=== PATIENT | female | born 1950 | race Caucasian/White ===

== ENCOUNTER 2022-09-06 08:03 | Outpatient (OUT) | payer MEDICARE, BC, SELFPAY | END 2022-09-06 08:04 | disposition home or self-care (01) | LOC: VC 08:05 | PROVIDERS: PCP Radiology Diagnostic Radiology; Visit Provider Radiology Diagnostic Radiology | DX: I83.813 Varicose veins of bilateral lower extremities with pain (principal) ==

== ENCOUNTER 2022-09-19 13:52 | Outpatient (OUT) | payer MEDICARE, BC, SELFPAY ==
--- NOTE | 2022-09-19 | VEIN_ITS ---
Patient: KEELEY CADE Exam Date: 09/19/2022 : 1950 Gender:F Ordering : DR DI LIU M.D. Admission #: [id number] Family : Order #: [id number] CLICK HERE TO VIEW EXAM RADIOLOGY REPORT PROCEDURE: VC EXT VENOUS REFLUX GEN LMTD COMPARISON: None. INDICATIONS: Pain due to varicose veins of bilateral legs i83.813 TECHNIQUE: Duplex imaging of the lower extremity to assess the deep and superficial venous system for the presence of deep or superficial venous incompetence and to document the location and severity of disease. The study includes evaluation of the great saphenous vein (GSV), anterior accessory saphenous vein (AASV) and small saphenous vein (SSV). Patient scanned in reverse Trendelenburg and standing. 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 Compressibility: Partial thrombus mid SSV. Flow: Mild deep venous reflux. Preforator:Dist medial lower leg 6.2 mm with 1.3s reflux. Mid medial thigh 6.3 mm with 3.5s reflux. Tech Note: Previous vein stripping of right GSV. Large varicose vein off of track production engineer dist medial thigh measures 11.7 mm with 3.9s reflux. Varicose vein proximal medial lower leg measures 6.7 mm with 3.9s reflux. Mid medial lower leg varicose vein measures 6.5 mm with 3.7s reflux. Mid posterior calf varicose vein off of SSV measures 5.4 mm with 2.2s reflux. LEFT LOWER EXTREMITY: Saphenofemoral Junction Reflux: Yes 10.6 mm 1.3 sec GSV: Diam (mm) Reflux/Time (sec) Proximal Thigh 8.6 Yes 3.6 Mid Thigh N/A Distal Thigh N/A Prox Calf N/A Mid Calf N/A Saphenopopliteal Junction Relux: 2.7 mm Yes 2.2 SSV: Proximal Calf 3.0 Yes 0.2 Mid Calf 2.5 Yes 1.4 AASV: Proximal Thigh 7.9 Yes 1.7 Mid Thigh 4.6 Yes 0.9 Distal Thigh Thrombi: No acute or chronic thrombus. Compressibility: Normal. Flow: Moderate deep venous reflux. Youth Associate:Dist medial lower leg 4.0 mm with 2.4s reflux. Tech Note: Previously treated GSV. Patent distal calf GSV measures 3.1 mm with 1.0s reflux. Incompetent varicose vein medial knee measures 3.8 mm with 2.5s reflux. Mid medial lower leg varicose vein measures 4.1 mm with 2.5s reflux. Posterior mid thigh varicose vein measures 3.1 mm with 0.5s reflux. CONCLUSION: 1. Abnormally dilated and incompetent right small saphenous vein, anterior accessory saphenous vein, right thigh track production engineer vein, and multiple incompetent branch saphenous varicosities. 2. Abnormally dilated and incompetent left anterior accessory saphenous vein and a few branch saphenous varicosities. Dictated by: Celso Sargent M.D. on 09/19/2022 at 15:07 Approved by: Celso Sargent M.D. on 09/19/2022 at 16:02
--- NOTE | 2022-09-19 | VEIN_ITS ---
Patient: KEELEY CADE Exam Date: 09/19/2022 : 1950 Gender:F Ordering : DR DI LIU M.D. Admission #: [id number] Family : Order #: [id number] CLICK HERE TO VIEW EXAM RADIOLOGY REPORT PROCEDURE: FACILITY [facility] VEIN CENTER - OFFICE VISIT INITIAL COMPARISON: None. PROGRESS NOTES: [age] year old female who presents with a 50 year history of dilated bulging veins, discolored veins, leg swelling and cramping. The patient's right leg symptoms are worse than the left. There has been a progression of symptoms over past 10 years. This increases with prolonged leg dependency. The patient describes an improvement with rest, elevation, exercise, and support stockings. The patient denies any signs and symptoms to suggest arterial ischemia. The patient describes a family history for for varicose veins. The patient has drinking and smoking history of : Occasional alcohol consumption; no tobacco use. Patient has a past medical history significant for hypertension, prior treatment of vein disease. The patient denies a history of deep venous thrombus or pulmonary embolus. See separate history and physical for medication list. Remote history of prior stripping of right great saphenous vein and treatment/occlusion of left great saphenous vein at another institution. Current use of compression stockings. After review of nurse notes, history and physical exam I discussed at length the pathophysiology of venous hypertension and possible treatments, therapies and strategies available. We discussed at length the importance of elevating the lower extremities above the level of the heart, increased physical activity and compression stocking use. Ultrasound venous reflux study performed today was discussed at length with the patient. The report demonstrates abnormally dilated and incompetent right small saphenous vein, bilateral anterior accessory saphenous veins, right thigh paradi operator vein with large branching varicosities, and multiple incompetent branch saphenous varicosities bilaterally. PHYSICAL EXAM: The right leg demonstrates numerous large, bulging varicosities, multiple scattered spider veins, no ulceration, mild edema, no skin discoloration. The left leg demonstrates several varicosities, a few scattered spider veins, no ulceration, no edema, no skin discoloration. Both thighs, legs and feet were symmetrically warm to the touch. Good posterior tibial and dorsalis pedis pulses were present bilaterally. VEIN/ Facility [facility] IMPRESSION: 1. Bilateral lower extremity venous insufficiency 2. Bilateral lower extremity varicose veins 3. Mild right lower extremity subcutaneous edema 4. No flow significant arterial disease 5. CEAP: C3, EC, AP, [place] PLAN: 1. Continued use of compression stockings 2. Elevated legs and increased physical activity symptomatic relief 3. Endovenous laser ablation of right thigh paradi operator vein, left anterior accessory saphenous vein, right small saphenous vein, right anterior accessory saphenous vein. 4. Bilateral microfoam chemical ablation. 5. Bilateral sclerotherapy. Nurse notes, history and physical were reviewed and confirmed, see attached forms. The nurse was present throughout the physical exam and consultation Dictated by: Celso Sargent M.D. on 09/19/2022 at 16:02 Approved by: Celso Sargent M.D. on 09/19/2022 at 16:12
== END 2022-09-19 13:53 | disposition home or self-care (01) ==
LOC: VC 13:52
PROVIDERS: PCP Radiology Diagnostic Radiology; Visit Provider Radiology Diagnostic Radiology
DX: I83.813 Varicose veins of bilateral lower extremities with pain (principal)
CPT/HCPCS: 93970; G0463

== ENCOUNTER 2022-10-13 12:51 | Outpatient (OUT) | payer MEDICARE, BC, SELFPAY ==
--- NOTE | 2022-10-13 | VEIN_ITS ---
The [address] [address] Patient Name: KEEELY CADE MRN: [id number] date: 1950 Sex: F Assigned Patient Location: Current Patient Location: Accession/Order Number: [id number] Exam Date: 10/13/2022 13:00 Report Date: 10/13/2022 14:38 At the request of: DI LIU Procedure: VC Endovenous Ablation 1VeinRT EXAMINATION: VC Endovenous Ablation 1VeinRT HISTORY: Pain due to varicose veins of bilateral legs I83.813 The risks and benefits of the procedure had been previously discussed, and were rediscussed at length. Informed written consent was obtained. Erika Adame RN and Charlene Skelton RDMS, RVT assisted. Time out procedure was performed. The right lower extremity was prepared and draped in the usual sterile fashion to allow knee flexion in the sterile field. Duplex ultrasound probe was draped in a sterile cover, sterile transmission gel was used. Venous mapping was performed with the areas of dilation and large tributaries marked. The total length was 34 cm from the entry distal calf to mid posterior thigh (thigh extension small saphenous vein). The diameter of the small saphenous vein ranged from 5.5 mm. A 30 gauge needle and 1% buffered lidocaine was used to anesthetize the entry site. A 4 mm incision was made with a scalpel and the saphenous vein was entered percutaneously under direct ultrasound guidance with a micropuncture set, a single stick was successful in gaining access. A micro-guide wire was inserted and the needle removed. A micro-set including a dilator was inserted over the microwire and the needle and dilator were removed. A guide wire was inserted through the micro-set and guided through the saphenous vein to the saphenofemoral junction. The dilator was removed and an introducer sheath was inserted over the wire until the end of the sheath entered the saphenofemoral junction. The dilator and wire were removed and the 600 micron fiber was introduced and placed and positioned so that it extended beyond the sheath and was 3 cm distal to the saphenofemoral or saphenopopliteal junction. Final position of the fiber was determined by ultrasound guidance and duplex imaging. Tumescent anesthetic was delivered by ultrasound guidance. 200 cc of fluid was delivered along the entire course of the saphenous vein. The solution consisted of 1000 cc of normal saline with 40 mL of 1% lidocaine and 20 mL of sodium bicarbonate. A final positioning check was made. The energy source was turned on by means of the foot pedal and the fiber and sheath were withdrawn. The total number of Joules delivered was 1580. The laser was active for 197 seconds under continuous pulse, average laser use of 8 J. Laser start time 1:40 PM, 10/13/2022. Laser stop time 1:43 PM, 10/13/2022. A duplex ultrasound revealed compressibility and flow at the saphenofemoral junction immediately after the procedure. Hemostasis at the access site was achieved. The skin incision of the saphenous vein was closed with a 4 x 4. A compression stocking was applied. Postop instructions were given. A follow up appointment was recommended and scheduled. The patient tolerated the procedure well. Electronically authenticated by: NINI SEVERINO Date: 10/13/2022 14:38
[2022-10-13] MEDS: LIDOCAINE HCL 10 ML, SODIUM BICARBONATE 1 MEQ INJ (13:27)
[2022-10-13] MEDS: 0.9 % SODIUM CHLORIDE 500 ML, LIDOCAINE HCL 20 ML, SODIUM BICARBONATE 10 MEQ INJ (13:27)
== END 2022-10-13 12:52 | disposition home or self-care (01) ==
LOC: VC 12:51
PROVIDERS: PCP Radiology Diagnostic Radiology; Visit Provider Radiology Diagnostic Radiology
DX: I83.813 Varicose veins of bilateral lower extremities with pain (principal)
CPT/HCPCS: 36478

== ENCOUNTER 2022-10-20 14:10 | Outpatient (OUT) | payer MEDICARE, BC, SELFPAY ==
--- NOTE | 2022-10-20 14:12 | VEIN_ITS ---
Patient: KEELEY CADE Exam Date: 10/20/2022 : 1950 Gender:F Ordering : DR DI LIU M.D. Admission #: [id number] Family : Order #: [id number] CLICK HERE TO VIEW EXAM RADIOLOGY REPORT PROCEDURE: VC EXT VENOUS RT LMTD COMPARISON: None. INDICATIONS: I80.01 Phlebitis of superficial veins of rt lower extremity TECHNIQUE: Lower extremity botello scale and Duplex Doppler evaluation of the deep venous system from the inguinal ligament through the calf veins. FINDINGS: REGION: Right lower extremity. THROMBI: Negative for DVT. Heat induced thrombus visualized arising at distal thigh SSV and extending through mid calf. COMPRESSIBILITY: Non-compressible segments. FLOW: Areas of no flow. OTHER: CONCLUSION: 1. Successful post ablation occlusion of right small saphenous vein. Dictated by: Celso Sargent M.D. on 10/20/2022 at 14:35 Approved by: Celso Sargent M.D. on 10/20/2022 at 14:36
--- NOTE | 2022-10-20 14:12 | VEIN_ITS ---
Patient: KEELEY CADE Exam Date: 10/20/2022 : 1950 Gender:F Ordering : DR DI LIU M.D. Admission #: [id number] Family : Order #: [id number] CLICK HERE TO VIEW EXAM RADIOLOGY REPORT PROCEDURE: VC FACILITY EST LMTD VEIN CENTER - OFFICE VISIT FOLLOW UP COMPARISON: None. PROGRESS NOTES: The patient reports improvement in leg symptoms. There has been interval reduction in varicosities. The patient has followed our recommendations to walk 20-30 minutes once or twice per day since the procedure. Physical exam demonstrates decrease in varicosities of the leg. Persistent varicose veins are identified along the legs bilaterally. Review of the ultrasound performed the same day demonstrates occlusive thrombus extending throughout the treated vein(s), see separate report, consistent with a successful ablation. No thrombus extending into or beyond the saphenofemoral junction. The patient expressed a desire to proceed with treatment of remaining abnormally dilated and incompetent superficial veins. The patient was informed that treatment was a process and would require several procedures/sessions. VEIN/ Facility EST LMTD IMPRESSION: 1. Successful ablation of the right small saphenous vein(s). 2. Persistent abnormally dilated veins and lower extremity symptoms. PLAN: 1. Endovenous laser ablation of right anterior accessory saphenous vein. Nurse notes, history and physical were reviewed and confirmed, see attached forms. The nurse was present throughout the physical exam and consultation Dictated by: Celso Sargent M.D. on 10/20/2022 at 14:36 Approved by: Celso Sargent M.D. on 10/20/2022 at 14:37
== END 2022-10-20 14:11 | disposition home or self-care (01) ==
LOC: VC 14:11
PROVIDERS: PCP Radiology Diagnostic Radiology; Visit Provider Radiology Diagnostic Radiology
DX: I80.01 Phlebitis and thrombophlebitis of superficial vessels of right lower extremity (principal)
CPT/HCPCS: 93971; G0463

== ENCOUNTER 2022-11-09 13:20 | Outpatient (OUT) | payer MEDICARE, BC, SELFPAY ==
--- NOTE | 2022-11-09 13:20 | VEIN_ITS ---
[address] [address] Patient Name: KEELEY CADE MRN: [id number] date: 1950 Sex: F Assigned Patient Location: Current Patient Location: Accession/Order Number: [id number] Exam Date: 11/09/2022 13:23 Report Date: 11/09/2022 14:43 At the request of: DI LIU Procedure: VC Endovenous Ablation 1VeinRT EXAMINATION: VC Endovenous Ablation 1VeinRT HISTORY: Pain due to varicose veins of bilateral legs I83.813 The risks and benefits of the procedure had been previously discussed, and were rediscussed at length. Informed written consent was obtained. Nathen Lawton RN and Catalina Hollins RDMS assisted. Time out procedure was performed. The right lower extremity was prepared and draped in the usual sterile fashion to allow knee flexion in the sterile field. Duplex ultrasound probe was draped in a sterile cover, sterile transmission gel was used. Venous mapping was performed with the areas of dilation and large tributaries marked. The total length was 10 cm from the entry upper thigh to 3 cm below the junction. The diameter of the right anterior accessory saphenous vein ranged from 7.9 mm. A 30 gauge needle and 1% buffered lidocaine was used to anesthetize the entry site. A 4 mm incision was made with a scalpel and the saphenous vein was entered percutaneously under direct ultrasound guidance with a micropuncture set, a single stick was successful in gaining access. A micro-guide wire was inserted and the needle removed. A micro-set including a dilator was inserted over the microwire and the needle and dilator were removed. A guide wire was inserted through the micro-set and guided through the saphenous vein to the saphenofemoral junction. The dilator was removed and an introducer sheath was inserted over the wire until the end of the sheath entered the saphenofemoral junction. The dilator and wire were removed and the 600 micron fiber was introduced and placed and positioned so that it extended beyond the sheath and was 3 cm distal to the saphenofemoral or saphenopopliteal junction. Final position of the fiber was determined by ultrasound guidance and duplex imaging. Tumescent anesthetic was delivered by ultrasound guidance. 150 cc of fluid was delivered along the entire course of the saphenous vein. The solution consisted of 1000 cc of normal saline with 40 mL of 1% lidocaine and 20 mL of sodium bicarbonate. A final positioning check was made. The energy source was turned on by means of the foot pedal and the fiber and sheath were withdrawn. The total number of Joules delivered was 542. The laser was active for 68 seconds under continuous pulse, average laser use of 8 J. Laser start time 2:14 PM, 11/09/2022. Laser stop time 2:16 PM, 11/09/2022. A duplex ultrasound revealed compressibility and flow at the saphenofemoral junction immediately after the procedure. Hemostasis at the access site was achieved. The skin incision of the saphenous vein was closed with a 4 x 4. A compression stocking was applied. Postop instructions were given. A follow up appointment was recommended and scheduled. The patient tolerated the procedure well. Electronically authenticated by: NINI SEVERINO Date: 11/09/2022 14:43
[2022-11-09] MEDS: 0.9 % SODIUM CHLORIDE 500 ML, LIDOCAINE HCL 20 ML, SODIUM BICARBONATE 10 MEQ INJ (13:22)
[2022-11-09] MEDS: LIDOCAINE HCL 10 ML, SODIUM BICARBONATE 1 MEQ INJ (13:22)
== END 2022-11-09 13:21 | disposition home or self-care (01) ==
LOC: VC 13:20
PROVIDERS: PCP Radiology Diagnostic Radiology; Visit Provider Radiology Diagnostic Radiology
DX: I83.813 Varicose veins of bilateral lower extremities with pain (principal)
CPT/HCPCS: 36478

== ENCOUNTER 2022-11-16 13:49 | Outpatient (OUT) | payer MEDICARE, BC, SELFPAY ==
--- NOTE | 2022-11-16 | VEIN_ITS ---
Patient: KEELEY CADE Exam Date: 11/16/2022 : 1950 Gender:F Ordering : DR KAMRON ALFONSO M.D. Admission #: [id number] Family : Order #: [id number] CLICK HERE TO VIEW EXAM RADIOLOGY REPORT PROCEDURE: [facility] EST L[facility]D VEIN CENTER - OFFICE VISIT FOLLOW UP [facility] PROGRESS NOTES: The patient reports no significant problems following intravenous laser ablation of the right anterior accessory saphenous vein. The patient did wear her compression stockings. The patient did not require oral analgesics. The patient has followed our recommendations to walk 20-30 minutes once or twice per day since the procedure. Physical exam demonstrates no bruising. The incision site is closed. No erythema or warmth. The anterior accessory saphenous vein cannot be palpated. No active ulceration Review of the ultrasound performed the same day demonstrates occlusive thrombus extending throughout the treated left anterior accessory saphenous vein with no deep vein thrombus. The patient expressed a desire to proceed with intravenous laser ablation of incompetent left anterior accessory saphenous vein. VEIN/[facility] EST TD IMPRESSION: 1. Successful ablation of the right anterior accessory saphenous vein. 2. Persistent incompetent left anterior accessory saphenous vein. PLAN: Intravenous laser ablation left anterior accessory saphenous vein Nurse notes, history and physical were reviewed and confirmed, see attached forms. The nurse was present throughout the physical exam and consultation Dictated by: Kamron Alfonso MD on 11/16/2022 at 14:55 Approved by: Kamron Alfonso MD on 11/16/2022 at 15:55
--- NOTE | 2022-11-16 | VEIN_ITS ---
Patient: KEELEY CADE Exam Date: 11/16/2022 : 1950 Gender:F Ordering : DR KAMRON ALFONSO M.D. Admission #: [id number] Family : Order #: [id number] CLICK HERE TO VIEW EXAM RADIOLOGY REPORT PROCEDURE: VC EXT VENOUS RT LMTD COMPARISON: VC EXT VENOUS RT LMTD, 10/20/2022. INDICATIONS: Phlebitis of superficial veins of rt lower extremity I80.01 TECHNIQUE: Lower extremity botello scale and Duplex Doppler evaluation of the deep venous system from the inguinal ligament through the calf veins. FINDINGS: REGION: Right lower extremity. THROMBI: Negative for DVT. Heat induced thrombus in right AASV proximal to mid thigh. AASV does not connect to SFJ due to prior vein stripping. COMPRESSIBILITY: Non-compressible segments. FLOW: Areas of no flow. OTHER: Multiple varicose veins remain. CONCLUSION: Post ablation occlusion of the right anterior accessory saphenous vein with no deep vein thrombus. Dictated by: Kamron Alfonso MD on 11/16/2022 at 14:12 Approved by: Kamron Alfonso MD on 11/16/2022 at 14:13
== END 2022-11-16 13:50 | disposition home or self-care (01) ==
LOC: VC 13:49
PROVIDERS: PCP Radiology Diagnostic Radiology; Visit Provider Radiology Diagnostic Radiology
DX: I80.01 Phlebitis and thrombophlebitis of superficial vessels of right lower extremity (principal)
CPT/HCPCS: 93971; G0463

== ENCOUNTER 2022-11-24 10:51 | Outpatient (OUT) | payer MEDICARE, BC, SELFPAY ==
--- NOTE | 2022-11-24 10:58 | VEIN_ITS ---
[address] [address] Patient Name: KEELEY CADE MRN: [id number] date: 1950 Sex: F Assigned Patient Location: Current Patient Location: Accession/Order Number: [id number] Exam Date: 11/24/2022 11:05 Report Date: 11/24/2022 12:20 At the request of: DI LIU Procedure: VC Endovenous Ablation 1VeinLT EXAMINATION: VC Endovenous Ablation 1Vein left anterior accessory saphenous vein HISTORY: Pain due to varicose veins of bilateral legs I83.813 COMPARISON: No relevant comparison available. TECHNIQUE: The risks and benefits of the procedure had been previously discussed, and were rediscussed at length. Informed written consent was obtained. Veronique Skelton and Nathen Lawton assisted. Time out procedure was performed. The left lower extremity was prepared and draped in the usual sterile fashion to allow knee flexion in the sterile field. Duplex ultrasound probe was draped in a sterile cover, sterile transmission gel was used. Venous mapping was performed with the areas of dilation and large tributaries marked. The total length was 19 cm from the entry mid thigh to 3 cm below the saphenofemoral junction. The diameter of the anterior accessory saphenous vein ranged from 4-8 mm. A 30 gauge needle and 1% buffered lidocaine was used to anesthetize the entry site. A 4 mm incision was made with a scalpel and the saphenous vein was entered percutaneously under direct ultrasound guidance with a micropuncture set, a single stick was successful in gaining access. A micro-guide wire was inserted and the needle removed. A micro-set including a dilator was inserted over the microwire and the needle and dilator were removed. A 0.018 guide wire was inserted through the micro-set and threaded through the saphenous vein to the saphenofemoral junction. The dilator was removed and an introducer sheath was inserted over the wire until the end of the sheath entered the saphenofemoral junction. The dilator and wire were removed and the 600 micron fiber was introduced and placed and positioned so that it extended beyond the sheath and was 3 cm peripheral to the saphenofemoral femoral junction. Final position of the fiber was determined by ultrasound guidance and duplex imaging. Tumescent anesthetic was delivered by ultrasound guidance. 150 cc of fluid was delivered along the entire course of the saphenous vein. The solution consisted of 1000 cc of normal saline with 40 mL of 1% lidocaine and 20 mL of sodium bicarbonate. A final positioning check was made. The energy source was turned on by means of the foot pedal and the fiber and sheath were withdrawn. The total number of Joules delivered was 922. The laser was active for 115 seconds under continuous pulse, average laser use of 8 J. Laser start time 11:46 AM 11/24/2022 . Laser stop time 11:48 AM 11/24/2022 . A duplex ultrasound revealed compressibility and flow at the saphenofemoral junction immediately after the procedure. Hemostasis at the access site was achieved. The skin incision of the saphenous vein was closed with a 4 x 4. A compression stocking was applied. Postop instructions were given. A follow up appointment was recommended and scheduled. The patient tolerated the procedure well and was discharged in good condition . VEIN/VC Endovenous Ablation 1VeinLT IMPRESSION: Technically successful endovenous laser ablation left anterior accessory saphenous vein Electronically authenticated by: DI LIU Date: 11/24/2022 12:20
[2022-11-24] MEDS: LIDOCAINE HCL 1% 100 MG/10 ML MDV INJ (11:26)
[2022-11-24] MEDS: 0.9 % SODIUM CHLORIDE 500 ML, LIDOCAINE HCL 20 ML, SODIUM BICARBONATE 10 MEQ INJ (11:27)
== END 2022-11-24 10:52 | disposition home or self-care (01) ==
LOC: VC 10:51
PROVIDERS: PCP Radiology Diagnostic Radiology; Visit Provider Radiology Diagnostic Radiology
DX: I83.813 Varicose veins of bilateral lower extremities with pain (principal)
CPT/HCPCS: 36478

== ENCOUNTER 2022-11-30 14:21 | Outpatient (OUT) | payer MEDICARE, BC, SELFPAY ==
--- NOTE | 2022-11-30 14:23 | VEIN_ITS ---
Patient: KEELEY CADE Exam Date: 11/30/2022 : 1950 Gender:F Ordering : DR DI LIU M.D. Admission #: [id number] Family : Order #: [id number] CLICK HERE TO VIEW EXAM RADIOLOGY REPORT PROCEDURE: [facility] EST LMTD VEIN CENTER - OFFICE VISIT FOLLOW UP [facility] PROGRESS NOTES: The patient reports improvement in leg symptoms. There has been interval reduction in varicosities. The patient has followed our recommendations to walk 20-30 minutes once or twice per day since the procedure. Physical exam demonstrates decrease in varicosities of the leg. Persistent varicosities are identified along the legs bilaterally. Review of the ultrasound performed the same day demonstrates occlusive thrombus extending throughout the treated vein(s), see separate report, consistent with a successful ablation. No thrombus extending into or beyond the saphenofemoral junction. The patient expressed a desire to proceed with treatment of right thigh cotton cleaner vein followed by remaining incompetent branch saphenous varicosities. The patient was informed that treatment was a process and would require several procedures/sessions. VEIN/[facility] EST LMTD IMPRESSION: 1. Successful ablation of the left anterior accessory saphenous vein(s). 2. Persistent varicose veins and mild lower extremity symptoms. PLAN: 1. Endovenous laser ablation of right thigh cotton cleaner vein. 2. Microfoam chemical ablation of branch saphenous varicosities. Nurse notes, history and physical were reviewed and confirmed, see attached forms. The nurse was present throughout the physical exam and consultation Dictated by: Celso Sargent M.D. on 11/30/2022 at 15:07 Approved by: Celso Sargent M.D. on 11/30/2022 at 15:09
--- NOTE | 2022-11-30 14:23 | VEIN_ITS ---
Patient: KEELEY CADE Exam Date: 11/30/2022 : 1950 Gender:F Ordering : DR DI LIU M.D. Admission #: [id number] Family : Order #: [id number] CLICK HERE TO VIEW EXAM RADIOLOGY REPORT PROCEDURE: VC EXT VENOUS LT LIMITED COMPARISON: None. INDICATIONS: Phlebitis of superficial veins of rt lower extremity I80.01 TECHNIQUE: Lower extremity botello scale and Duplex Doppler evaluation of the deep venous system from the inguinal ligament through the calf veins. FINDINGS: REGION: Right lower extremity. THROMBI: Negative for DVT. COMPRESSIBILITY: Non-compressible & partially compressible segments. FLOW: Areas of no flow. OTHER: Heat induced thrombus visualized 2.1 cm from the saphenofemoral junction and is seen from proximal AASV to mid anterior thigh at the point of insertion. CONCLUSION: 1. Successful post ablation occlusion of left anterior accessory saphenous vein. Dictated by: Celso Sargent M.D. on 11/30/2022 at 15:06 Approved by: Celso Sargent M.D. on 11/30/2022 at 15:07
== END 2022-11-30 14:22 | disposition home or self-care (01) ==
LOC: VC 14:21
PROVIDERS: PCP Radiology Diagnostic Radiology; Visit Provider Radiology Diagnostic Radiology
DX: I80.02 Phlebitis and thrombophlebitis of superficial vessels of left lower extremity (principal)
CPT/HCPCS: 93971; G0463

== ENCOUNTER 2022-12-01 10:18 | Outpatient (OUT) | payer MEDICARE, BC, SELFPAY ==
--- NOTE | 2022-12-01 10:23 | VEIN_ITS ---
[address] [address] Patient Name: KEELEY CADE MRN: [id number] date: 1950 Sex: F Assigned Patient Location: Current Patient Location: Accession/Order Number: [id number] Exam Date: 12/01/2022 10:23 Report Date: 12/01/2022 11:43 At the request of: DI LIU Procedure: VC Endovenous Perf Ablation RT EXAMINATION: VC Endovenous Perf Ablation RT COMPARISON: INDICATIONS: Pain due to varicose veins of bilateral legs I83.813 OPERATIVE REPORT: Diagnosis: Superficial venous reflux, incompetent perforating veins Procedure: Endovenous laser ablation of the right salt grinder(s) Procedure: The patient was positioned supine on the table and the leg was prepped and draped to allow for visualization during venous access. A sterile cover was draped over a 16 mhz ultrasound probe. Venous mapping was performed prior to the procedure noting location and size of vessel(s). Gallery Director vein 1: Medial distal right lower leg. The diameter of the vein ranged from 6.2 mm's below the muscular fascia to 6.2 mm's at the entry point. Using a 30 gauge needle the entry site was anesthetized with 0.5 cc of 1% buffered lidocaine. Access was gained percutaneously, with a 21-gauge needle, into the salt grinder vein under ultrasound guidance. The needle was advanced into the desired position and the pre-measured 400-micron fiber was then inserted into the needle and locked in place. The position of the fiber was imaged with ultrasound guidance. The fiber tip was visualized to be 10 mm from the deep vessel. An anesthetic solution of 4 cc 1% buffered lidocaine was delivered along the course of the vein under ultrasound guidance using a syringe. A final positioning check of the laser fiber tip was performed. The laser was activated by means of a foot-pedal and the fiber and needle were withdrawn together in accordance to the desired joules per treatment area/spot weld. 4 areas/spot welds were performed, and the total number of joules delivered was 270. The total time of energy delivery was 34 seconds. A duplex ultrasound revealed compressibility and flow of the deep system immediately after the procedure. Hemostasis of the access site was achieved and dressed. A 20-30 mm compression stocking over coban was placed on the treated leg. Post-Op instructions were given, and a follow-up appointment was made. Gallery Director vein 2: Medial mid right thigh. The diameter of the vein ranged from 6.3 mm's below the muscular fascia to 6.3 mm's at the entry point. Using a 30 gauge needle the entry site was anesthetized with 0.5 cc of 1% buffered lidocaine. Access was gained percutaneously, with a 21-gauge needle, into the salt grinder vein under ultrasound guidance. The needle was advanced into the desired position and the pre-measured 400-micron fiber was then inserted into the needle and locked in place. The position of the fiber was imaged with ultrasound guidance. The fiber tip was visualized to be 10 mm from the deep vessel. An anesthetic solution of 6 cc 1% buffered lidocaine was delivered along the course of the vein under ultrasound guidance using a syringe. A final positioning check of the laser fiber tip was performed. The laser was activated by means of a foot-pedal and the fiber and needle were withdrawn together in accordance to the desired joules per treatment area/spot weld. 5 areas/spot welds were performed, and the total number of joules delivered was 334. The total time of energy delivery was seconds. A duplex ultrasound revealed compressibility and flow of the deep system immediately after the procedure. Hemostasis of the access site was achieved and dressed. A 20-30 mm compression stocking over coban was placed on the treated leg. Post-Op instructions were given, and a follow-up appointment was made. CONCLUSION: 1. Technically successful endovenous laser ablation of 2 right leg salt grinder veins Electronically authenticated by: NINI SEVERINO Date: 12/01/2022 11:43
[2022-12-01] MEDS: LIDOCAINE HCL 20 ML, SODIUM BICARBONATE 2 MEQ INJ (12:38)
== END 2022-12-01 10:19 | disposition home or self-care (01) ==
LOC: VC 10:18
PROVIDERS: PCP Radiology Diagnostic Radiology; Visit Provider Radiology Diagnostic Radiology
DX: I83.813 Varicose veins of bilateral lower extremities with pain (principal)
CPT/HCPCS: 36478

== ENCOUNTER 2022-12-22 09:44 | Outpatient (OUT) | payer MEDICARE, BC, SELFPAY ==
--- NOTE | 2022-12-22 09:45 | VEIN_ITS ---
Patient: KEELEY CADE Exam Date: 12/22/2022 : 1950 Gender:F Ordering : DR KAMRON ALFONSO M.D. Admission #: [id number] Family : Order #: [id number] CLICK HERE TO VIEW EXAM RADIOLOGY REPORT PROCEDURE: VC EXT VENOUS RT LMTD COMPARISON: VC EXT VENOUS RT LMTD, 11/16/2022. VC EXT VENOUS RT LMTD, 10/20/2022. INDICATIONS: I80.01 Phlebitis of superficial veins of rt lower extremity TECHNIQUE: Lower extremity botello scale and Duplex Doppler evaluation of the deep venous system from the inguinal ligament through the calf veins. FINDINGS: REGION: Right lower extremity. THROMBI: Positive for DVT. Positive for DVT in PTV, 1.6 cm segment off of a furniture installer. Heat induced thrombus is visualized at mid/med thigh furniture installer and distal/med calf. COMPRESSIBILITY: Non-compressible segments corresponding to thrombus FLOW: Areas of no flow. CONCLUSION: Post ablation occlusion of treated perforating veins with a 1.6 cm segment of deep vein thrombus in a single posterior tibial vein associated with a treated furniture installer vein Dictated by: Kamron Alfonso MD on 12/22/2022 at 10:04 Approved by: Kamron Alfonso MD on 12/22/2022 at 10:06
--- NOTE | 2022-12-22 09:45 | VEIN_ITS ---
Patient: KEELEY CADE Exam Date: 12/22/2022 : 1950 Gender:F Ordering : DR KAMRON ALFONSO M.D. Admission #: [id number] Family : Order #: [id number] CLICK HERE TO VIEW EXAM RADIOLOGY REPORT PROCEDURE: FACILITY EST LMTD VEIN CENTER - OFFICE VISIT FOLLOW UP COMPARISON: [facility] EST LMTD, 11/30/2022. FACILITY EST LMTD, 11/16/2022. PROGRESS NOTES: The patient reports no significant problems following intravenous laser ablation of incompetent right leg perforating veins. Patient did not require oral analgesics. The patient has worn compression stocking. Physical exam demonstrates no areas of erythema or warmth. No active ulceration. Of cellulitis thrombophlebitis. Multiple patent varicose veins are observed Review of the ultrasound performed the same day demonstrates occlusive thrombus extending throughout the treated perforating veins. There is a small 1.6 cm segment thrombus in a posterior tibial vein related to extension of thrombus from the treated adjacent perforating vein. The patient expressed a desire to proceed with treatment of incompetent varicose veins with micro foam chemical ablation. VEIN/ Facility EST LMTD IMPRESSION: 1. Successful ablation of treated right leg incompetent perforating vein 2. Persistent bilateral incompetent varicose veins. PLAN: Micro foam chemical ablation left leg incompetent varicose veins Nurse notes, history and physical were reviewed and confirmed, see attached forms. The nurse was present throughout the physical exam and consultation Dictated by: Kamron Alfonso MD on 12/22/2022 at 10:19 Approved by: Kamron Alfonso MD on 12/22/2022 at 10:21
== END 2022-12-22 09:45 | disposition home or self-care (01) ==
LOC: VC 09:44
PROVIDERS: PCP Radiology Diagnostic Radiology; Visit Provider Radiology Diagnostic Radiology
DX: Z48.812 Encounter for surgical aftercare following surgery on the circulatory system (principal); I80.01 Phlebitis and thrombophlebitis of superficial vessels of right lower extremity; I83.813 Varicose veins of bilateral lower extremities with pain
CPT/HCPCS: 93971; G0463

== ENCOUNTER 2022-12-29 09:38 | Outpatient (OUT) | payer MEDICARE, BC, SELFPAY ==
--- NOTE | 2022-12-29 | VEIN_ITS ---
[address] [address] Patient Name: KEELEY CADE MRN: [id number] date: 1950 Sex: F Assigned Patient Location: Current Patient Location: Accession/Order Number: [id number] Exam Date: 12/29/2022 10:00 Report Date: 12/29/2022 11:33 At the request of: DI LIU Procedure: VC INJ Foam Sclerosant WUS PROGRAM PRODUCTION SPECIALIST PROCEDURE: VC INJ Foam Sclerosant WUS PROGRAM PRODUCTION SPECIALIST HISTORY: Pain due to varicose veins of bilateral legs I83.813 Pre-operative Diagnosis: CEAP class C3 venous insufficiency with pain, tenderness, edema and incompetent branch saphenous vein(s), chronic venous insufficiency left leg secondary to venous incompetence Post-operative Diagnosis: CEAP class C3 venous insufficiency with pain, tenderness, edema and incompetent branch saphenous vein(s), chronic venous insufficiency left leg secondary to venous incompetence Procedure Performed: 1. Ultrasound-guided microfoam chemical ablation with Varithenaregistered 2. Intraoperative ultrasound guidance Physician: Celso Sargent M.D. Anesthesia: None Indications for Procedure: 72 year old female. Symptoms including dilated bulging veins, lower extremity swelling, pain for many years despite conservative medical therapy including medical compression stockings, exercise and analgesics. Prior procedures include endovenous laser ablation. Multiple incompetent varicosities of the left leg. Duplex scan showed reflux and enlarged diameters up to 4.5 mm. The patient underwent informed consent including management options where the complications of infection, bleeding, pain, and skin injury were discussed. Particular attention was spent discussing thrombus extension and deep vein thrombosis as well as the possibility of pulmonary embolus and treatment with oral or injectable blood thinners. Procedure: The patient walked to the procedure room. All applicable staff donned appropriate apparel. A procedure timeout was performed to confirm correct patient, correct extremity, correct procedure, and correct room set-up including presence of all applicable supplies, devices, and drugs. A duplex ultrasound, performed by myself confirmed the location and incompetence of branch saphenous varicosities and their course was marked on the skin together with the dilated tributaries. The extent of treatment of the vein and the associated varicosities was determined through ultrasound mapping. The skin was prepped and then punctured with a butterfly needle and advanced under ultrasound guidance. The Varithenaregistered canister was activated and the canister was primed and purged as required in the instructions for use. Varithenaregistered was drawn into a sterile syringe. Varithenaregistered was slowly administered at 0.5-1.0 cc/second with close observation by ultrasound of its course in the vessels. Total volume utilized was: 11 mL (5 mL into a 4.5 mm varicosity of the mid medial lower left leg; 6 mL intravenous 3.5 mm varicosity of the mid medial left thigh). Following administration of Varithenaregistered the leg was elevated and the patient was asked to repeatedly dorsiflex the ankle to limit flow of Varithenaregistered into perforating veins. Once appropriate spasm had been confirmed in the treated veins, the vascular catheter was removed from the leg and light pressure was applied over the puncture site for hemostasis. The common femoral and deep superficial veins were then evaluated for flow and compressibility prior to dressing placement. The lower extremity was kept elevated at 45 degrees above the horizontal and cording material was applied over the saphenous segments and tributaries to allow for eccentric compression over the target vessels including the targeted saphenous vein(s). A multilayer dressing was applied consisting of foam pads, coban and thigh-high 20-30 mm Hg compression elastic support hose were placed on the patient. The leg was lowered only after compression had been applied and the patient was immediately ambulatory. The patient ambulated 10 minutes under supervision and was without apparent concerns at time of release. Post-care instructions include advising patient to keep post-treatment bandages in place and dry for 48 hours, avoid extended periods of inactivity, avoid heavy exercise for one week, wear compression stockings on the treated leg continuously for two weeks, to walk daily for 10 minutes over the next month. The patient was instructed to take an anti-inflammatory medicine as needed and to follow up for color duplex scan of the Saphenous veins, the treated branch saphenous varicosities, the adjacent deep veins, and additional treatment within 7 days. PERSONNEL: Erika Adame RN and Dexter Lloyd RDMS Electronically authenticated by: CELSO SARGENT Date: 12/29/2022 11:33
== END 2022-12-29 09:39 | disposition home or self-care (01) ==
LOC: VC 09:38
PROVIDERS: PCP Radiology Diagnostic Radiology; Visit Provider Radiology Diagnostic Radiology
DX: I83.813 Varicose veins of bilateral lower extremities with pain (principal)
CPT/HCPCS: 36466

== ENCOUNTER 2023-01-09 09:43 | Outpatient (OUT) | payer MEDICARE, BC, SELFPAY ==
--- NOTE | 2023-01-09 | VEIN_ITS ---
Patient Name: KEELEY CADE MR#: [id number] : 1950 Exam Date: 01/09/2023 Ordering Doctor: DR DI LIU M.D. RADIOLOGY REPORT PROCEDURE: [facility] EST LMTD VE[facility] C[facility] - OFFICE VISIT FOLLOW [facility] PROGRESS NOTES: The patient reports improvement in leg symptoms. There has been interval reduction in varicosities. The patient has followed our recommendations to walk 20-30 minutes once or twice per day since the procedure. Patient experienced erythema and rash on left leg after the most recent treatment as well as hives. Patient reports ongoing history of allergy/allergic reaction. Upon further review it was felt that this incidentally occurred following last injection and was not caused by the injection of the Varithena medication. Patient was also seen in the emergency department for severe headache after discontinuing her blood pressure medication. Patient has resumed blood pressure medication with no complication. Physical exam demonstrates decrease in varicosities of the left leg. No erythema, swelling, or bruising. Persistent varicosities are identified along the right leg. Review of the ultrasound performed the same day demonstrates occlusive thrombus extending throughout the treated vein(s), see separate report, consistent with a successful ablation. Also identified was deep vein thrombus within the mid and proximal posterior tibial vein. The patient expressed a desire to proceed with treatment of right leg remaining incompetent varicosities. The patient was informed that treatment was a process and would require several procedures/sessions[facility]: 1. Successful ablation of the left leg treated branch saphenous vein(s). No remaining veins within left leg in need of treatment. 2. Deep vein thrombus within left leg mid and proximal posterior tibial vein. 3. Persistent right leg incompetent varicose veins and lower extremity symptoms. PLAN: 1. Xarelto 15 mg twice a day for 21 days for treatment of left posterior tibial vein deep vein thrombus. Follow-up ultrasound evaluation in 2-3 weeks. 2. Microfoam chemical ablation of right leg incompetent branch saphenous varicosities in 2-3 weeks. Nurse notes, history and physical were reviewed and confirmed, see attached forms. The nurse was present throughout the physical exam and consultation Dictated by: Celso Sargent M.D. on 01/09/2023 at 12:02 Approved by: Celso Sargent M.D. on 01/09/2023 at 12:09
--- NOTE | 2023-01-09 09:45 | VEIN_ITS ---
Patient Name: KEELEY CADE MR#: [id number] : 1950 Exam Date: 01/09/2023 Ordering Doctor: DR DI LIU M.D. RADIOLOGY REPORT PROCEDURE: VC EXT VENOUS LT LIMITED COMPARISON: VC EXT VENOUS LT LIMITED, 11/30/2022. INDICATIONS: Phlebitis of superficial vein of lt lower extremity I80.02 TECHNIQUE: Lower extremity botello scale and Duplex Doppler evaluation of the deep venous system from the inguinal ligament through the calf veins. FINDINGS: REGION: Left lower extremity. THROMBI: Positive for DVT. Positive for DVT at prox to mid calf approximately a 7-9cm segment. Varithena induced thrombus visualized at mid/med calf and mid/med thigh. COMPRESSIBILITY: Non-compressible segments corresponding to thrombus FLOW: Areas of no flow corresponding to thrombus OTHER: Patent varicose vein dist/med thigh 2.7mm with 1.4s reflux. CONCLUSION: 1. Successful post ablation occlusion of left leg treated branch saphenous varicosities. 2. Deep vein thrombus within mid-proximal calf. Patient has been placed on Xarelto 15 mg twice a day for 21 days with follow-up ultrasound scheduled. Dictated by: Celso Sargent M.D. on 01/09/2023 at 12:00 Approved by: Celso Sargent M.D. on 01/09/2023 at 12:02
== END 2023-01-09 09:44 | disposition home or self-care (01) ==
LOC: VC 09:44
PROVIDERS: PCP Radiology Diagnostic Radiology; Visit Provider Radiology Diagnostic Radiology
DX: I80.02 Phlebitis and thrombophlebitis of superficial vessels of left lower extremity (principal)
CPT/HCPCS: 93971; G0463

== ENCOUNTER 2023-01-26 09:48 | Outpatient (OUT) | payer MEDICARE, BC, SELFPAY ==
--- NOTE | 2023-01-26 09:49 | VEIN_ITS ---
The [address] [address] Patient Name: KEELEY CADE MRN: [id number] date: 1950 Sex: F Assigned Patient Location: Current Patient Location: Accession/Order Number: [id number] Exam Date: 01/26/2023 09:52 Report Date: 01/26/2023 10:53 At the request of: DI LIU Procedure: VC INJ Foam Sclerosant WUS TIE KNITTER HELPER PROCEDURE: VC INJ Foam Sclerosant WUS TIE KNITTER HELPER COMPARISON: None. HISTORY: I83.813 Bilateral painful varicose veins Pre-operative Diagnosis: CEAP class C3 venous insufficiency with pain, tenderness, edema and incompetent right leg varicose and saphenous vein(s), chronic venous insufficiency right leg secondary to venous incompetence Post-operative Diagnosis: CEAP class C3 venous insufficiency with pain, tenderness, edema and incompetent right leg varicose and saphenous vein(s), chronic venous insufficiency right leg secondary to venous incompetence Procedure Performed: 1. Ultrasound-guided microfoam chemical ablation with Varithenaregistered 2. Intraoperative ultrasound guidance Anesthesia: None Indications for Procedure: 73-year-old female who presents with a long history of lower extremity pain swelling and varicose veins. The patient failed conservative medical therapy including medical compression stockings, exercise and analgesics. Prior procedures include endovenous laser ablation. Multiple incompetent varicosities of the right leg. Duplex scan showed reflux and enlarged diameters up to 6 mm. The patient underwent informed consent including management options where the complications of infection, bleeding, pain, and skin injury were discussed. Particular attention was spent discussing thrombus extension and deep vein thrombosis as well as the possibility of pulmonary embolus and treatment with oral or injectable blood thinners. Procedure: The patient walked to the procedure room. All applicable staff donned appropriate apparel. A procedure timeout was performed to confirm correct patient, correct extremity, correct procedure, and correct room set-up including presence of all applicable supplies, devices, and drugs. A duplex ultrasound, performed by myself confirmed the location and incompetence of branch saphenous varicosities and their course was marked on the skin together with the dilated tributaries. The extent of treatment of the vein and the associated varicosities was determined through ultrasound mapping. The skin was prepped and then punctured with a butterfly needle and advanced under ultrasound guidance. The Varithenaregistered canister was activated and the canister was primed and purged as required in the instructions for use. Varithenaregistered was drawn into a sterile syringe. The following injections were made: 7 cc injected into a 5 mm varicose vein right distal medial lower leg 6 cc injected into a 6 mm varicose vein right distal medial thigh 2 cc injected into 3 mm varicose vein right medial ankle Varithenaregistered was slowly administered at 0.5-1.0 cc/second with close observation by ultrasound of its course in the vessels. Total volume utilized was: 15cc. Following administration of Varithenaregistered the leg was elevated and the patient was asked to repeatedly dorsiflex the ankle to limit flow of Varithenaregistered into perforating veins. Once appropriate spasm had been confirmed in the treated veins, the vascular catheter was removed from the leg and light pressure was applied over the puncture site for hemostasis. The common femoral and deep superficial veins were then evaluated for flow and compressibility prior to dressing placement. The lower extremity was kept elevated at 45 degrees above the horizontal and cording material was applied over the saphenous segments and tributaries to allow for eccentric compression over the target vessels including the targeted saphenous vein(s). A multilayer dressing was applied consisting of foam pads, coban and thigh-high 20-30 mm Hg compression elastic support hose were placed on the patient. The leg was lowered only after compression had been applied and the patient was immediately ambulatory. The patient ambulated 10 minutes under supervision and was without apparent concerns at time of release. Post-care instructions include advising patient to keep post-treatment bandages in place and dry for 48 hours, avoid extended periods of inactivity, avoid heavy exercise for one week, wear compression stockings on the treated leg continuously for two weeks, to walk daily for 10 minutes over the next month. The patient was instructed to take an anti-inflammatory medicine as needed and to follow up for color duplex scan of the Saphenous veins, the treated branch saphenous varicosities, the adjacent deep veins, and additional treatment within 7 days. PERSONNEL: Nathen Lawton RN Electronically authenticated by: DI LIU Date: 01/26/2023 10:53
--- OUTSIDE RECORDS SUMMARY | 2023-02-08 03:06 | XMS_ITS | CCD ---
Author Name Unknown Address [address] [place] [address] Organization [facility] Care Team Providers Care Court Crier Name Role Phone MONICA GARSIA) Unavailable Unavailable MONICA GARSIA) Unavailable Unavailable Pam Villalobos Primary Care Physician Yohana Rodarte Unavailable Unavailable Blanca Stratton Unavailable Unavailable Pam Villalobos Primary Care Provider Linda DIETZ, Tello Ulrich (Rn) Unavailable Unavailab Pam Hobbs Primary Care Provider Linda DIETZ, Tello Ulrich (Rn) Unavailable Unavailab PAM Hobbs Primary Care UnavailSANJAY Harris Referring Unavailable PAM VILLALOBOS Primary Care UnavailSANJAY Harris Referring Unavailable SANJAY ADKINS Attending Unavailable REFERRAL, SELF Attending Unavailable REFERRAL, SELF Referring Unavailable Pam Villalobos Consulting Unavailable REFERRAL, SELF Admitting Unavailable MD Pam Villalobos Consulting Unavailable Monisha TRAORE Consulting UnavailPam Arnold Consulting Unavailable Pam Villalobos Consulting Unavailable Pam Villalobos Consulting Unavailable Pam Villalobos Consulting Unavailable Pam Villalobos Consulting Unavailable Pam Villalobos Consulting Unavailable Pam Villalobos Consulting Unavailable Kamron Villalobos Admitting Unavailable Kamron Villalobos Attending Unavailable Gray Moon Attending Unavailable PAM VILLALOBOS Attending Unavailable Allergies Allergy Classification Reported Allergen(s) Allergy Type Date of Onset Reaction(s) Facility (6 sources) Adhesive Tape; Translations: [ADHESIVE TAPE (ROSINS)] Propensity to adverse reactions (disorder) 8 Rash [facility] Other [facility] (6 sources) Cefuroxime; Translations: [CEFUROXIME AXETIL] Drug Allergy 8 GI Upset [facility] Repository (6 sources) Clindamycin; Translations: [CLINDAMYCIN HCL] Drug Allergy 8 Intolerance [facility] Repository (8 sources) Adhesive Tape; Translations: [Adhesive tape] Allergy to substance [facility] Medications Current Medications Medication Drug Class(es) Dates Sig (Normalized) Sig (Original) acetaminophen 500 mg oral tablet (7 sources) Start: 11-16-2017 take 500 mg by mouth every six hours as needed for pain Tylenol 500 mg, Oral, q6hr, PRN as needed for pain, Refills(s) 0 Start Date: 11/16/17 Status: Ordered [id number] 200 actuat albuterol 0.09 mg/actuat metered dose inhaler (6 sources) beta2-Adrenergic Agonist Start: 10-08-2019 take 1 puff(s) by inhalation every six hours ProAir HFA 90 mcg/inh inhalation aerosol 1 puff(s), Inhalation, q6hr Shortness of breath or wheezing Start Date: 10/08/19 Status: Ordered Start: 01-24-2017 take 2 puff(s) by in halation every four hours as needed PROAIR HFA 90 mcg/actuation inhaler use 2 (TWO) puffs EVERY 4 HOURS NEEDED 6 01/24/2017 Active Comment on above: use 2 (TWO) puffs EV LORAINE 4 HOURS NEEDED aspirin 325 mg delayed release oral tablet (7 sources) Platelet Aggregation Inhibitor, Nonsteroidal Anti-inflammatory Drug Start: 10-29-2019 Ecotrin 325 mg Ta b-EC 325 mg = 1 tab(s), Oral, BIDPC, # 60 tab(s), Refills(s) 0, Pharmacy: [facility], 161.5, cm, 10/09/19 6:34:00 EDT, Height/Length Dosing, 80.1, kg, 10/11/19 12:14:00 EDT, Weight Dosing Start Date: 10/29/19 Status: Ordered Start: 10-29-2019 Ecotrin 325 mg Tab-EC 325 mg = 1 tab(s), Oral, BIDPC, # 60 tab(s), Refills(s) 0, Pharmacy: [facility], 161.5, cm, 10/09/19 6:34:00 EDT, Height/Length Dosing, 80.1, kg, 10/11/19 12:14:00 EDT, Weight Dosing Start Date: 10/29/19 Status: Ordered atorvastatin 10 mg oral tablet (11 sources) HMG-CoA Reductase Inhibitor Start: 03-08-2017 take 1 tablet by mouth once daily atorvastatin 10 mg Tab 10 mg = 1 tab(s), Oral, Daily, Refills(s) 0, High cholesterol Start Date: 05/08/17 Status: Ordered Comment on above: Take 10 mg by mouth once daily. Celebrate Multivitamin (7 sources) Start: 10-08-2019 take 1 tablet by mouth once daily Celebrate Multivitamin 1 tab, Oral, Daily, Prophylaxis Start Date: 10/08/19 Status: Ordered citalopram 20 mg oral tablet (11 sources) Serotonin Reuptake Inhibitor Start: 01-02-2008 take 20 mg by mouth at bedtime Celexa 20 mg, Oral, Bedtime, Refills(s) 0, Depression Start Date: 02/05/15 Status: Ordered Comment on above: Take one(1) tablet d aily at bedtime. dicyclomine hydrochloride 10 mg oral tablet (11 sources) Anticholinergic Start: 11-17-2017 take 10 mg by mouth four times daily as needed for muscle spasms Bentyl 10 mg, Oral, QID, PRN Spasm, Refills(s) 0, Spasm Start Date: 11/17/17 Status: Ordered Start: 01-02-2008 dicyclomine hc l(BENTYL 10 MG CAP) Indications: Heartburn , Unspecified constipation Take by mouth as needed. 0 01/02/2008 Active Comment on above: Take one(1) tablet d aily as needed. Take by mouth as nee ded. diphenhydrAMINE hydrochloride 25 mg oral tablet (11 sources) Histamine-1 Receptor Antagonist Start: 11-17-2017 take 25 mg by mouth once daily at bedtime as needed Benadryl 25 mg, Oral, Once a day (at bedtime), PRN as needed for itching, Refills(s) 0, Insomnia Start Date: 11/17/17 Status: Ordered take 1 capsule by [facility] every six hours as needed diphenhydrAMINE (BENADRYL) 25 mg capsule Take 25 mg by mouth every 6 hours as needed. 0 Active Comment on above: Take 25 mg by mouth every 6 hours as needed. docusate sodium 100 mg oral capsule (12 sources) Start: 10-29-2019 take 1 capsule by [facility] twice daily as needed for constipation Colace 100 mg Cap 100 mg = 1 cap(s), Oral, BID, PRN for constipation, # 40 cap(s), Refills(s) 0, Pharmacy: [facility], 161.5, cm, 10/09/19 6:34:00 EDT, Height/Length Dosing, 80.1, kg, 10/11/19 12:14:00 EDT, Weight Dosing Start Date: 10/29/19 Status: Ordered Start: 11-17-2017 take 100 mg by mouth once daily at bedtime as needed for constipation Colace 100 mg, Oral, Once a day (at bedtime), PRN as needed for constipation, Refills(s) 0, Constipation Start Date: 11/17/17 Status: Ordered Comment on above: Take 100 mg by mouth as needed. eletriptan 40 mg oral tablet (11 sources) Serotonin-1b and Serotonin-1d Receptor Agonist Start: 01-02-2008 take 1 tablet by mouth once daily as needed for headache Relpax 40 mg Tab 40 mg = 1 tab(s), Oral, Daily, PRN Migraine headache, Refills(s) 0, Migraine headache Start Date: 09/30/19 Status: Ordered Comment on above: Take one(1) tablet d aily as needed. hydroCHLOROthiazide 25 mg oral tablet (11 sources) Thiazide Diuretic Start: 10-08-2019 take 1 tablet by mouth once daily hydrochlorothiazide 25 mg oral tablet 25 mg = 1 tab(s), Oral, Daily, diuretic/water pill Start Date: 10/08/19 Status: Ordered Start: 01-10-2017 take 2 capsules by [facility] once daily Hydrochlorothiazide 12.5 mg capsule Take 25 mg by mouth once daily. 3 01/10/2017 Active Comment on above: Take 25 mg by mouth once daily. loratadine 10 mg oral tablet (11 sources) Start: 09-02-2019 take 1 tablet by mouth once daily loratadine 10 mg Tab 10 mg = 1 tab(s), Oral, Daily, Refills(s) 0, Allergy symptoms Start Date: 09/02/19 Status: Ordered loratadine 10 mg cap Take by mouth as needed. 0 Active Comment on above: Take by mouth as nee ded. magnesium hydroxide 80 mg/ml oral suspension (7 sources) Start: 10-30-2019 take 2.4 g by mouth twice daily magnesium hydroxide 8% Oral Susp 30 mL 2.4 gram, 30 mL, Oral, BID Constipation, Refill(s) 0 Start Date: 10/30/19 Status: Ordered Start: 10-30-2019 take 2.4 g by mouth twice daily magnesium hydroxide 8% Oral Susp 30 mL 2.4 gram, 30 mL, Oral, BID Constipation, Refill(s) 0 Start Date: 10/30/19 Status: Ordered Miralax 17 gram packet (5 sources) Start: 12-04-2018 take 17 g by mouth once daily as needed for constipation Miralax 17 gram packet 17 gram, Oral, Daily, PRN Constipation, dissolve in water before taking Start Date: 12/04/18 Status: Ordered omeprazole 40 mg delayed release oral capsule (6 sources) Proton Pump Inhibitor Start: 09-23-2021 End: 03-22-2022 take 1 capsule by mouth once daily omeprazole 40 mg Cap-DR 40 mg = 1 cap(s), Oral, Daily, X 90 day(s), # 90 cap(s), Refills(s) 1, Pharmacy: [facility], 161, cm, 07/29/21 7:13:00 EDT, Height/Length Dosing, 84, kg, 07/29/21 7:13:00 EDT, Weight Dosing Start Date: 09/23/21 Stop Date: 03/22/22 Status: Ordered Start: 06-09-2021 take 1 capsule by [facility] once daily omeprazole 40 mg Cap-DR 40 mg = 1 cap(s), Oral, Daily, # 30 cap(s), Refills(s) 2, Pharmacy: [facility], 161, cm, 06/09/21 10:32:00 EDT, Height/Length Dosing, 84, kg, 06/09/21 10:32:00 EDT, Weight Dosing Start Date: 06/09/21 Status: Ordered Comment on above: Take 40 mg by mouth once daily. omeprazole 40 mg Cap-DR (2 sources) Start: 06-09-2021 take 1 capsule by mouth once daily omeprazole 40 mg Cap-DR 40 mg = 1 cap(s), Oral, Daily, # 30 cap(s), Refills(s) 2, Pharmacy: [facility], 161, cm, 06/09/21 10:32:00 EDT, Height/Length Dosing, 84, kg, 06/09/21 10:32:00 EDT, Weight Dosing Start Date: 06/09/21 Status: Ordered ondansetron 4 mg oral tablet (7 sources) Serotonin-3 Receptor Antagonist Start: 12-09-2019 take 4 mg by mouth twice daily as needed for nausea Zofran 4 mg, Oral, BID, PRN as needed for nausea/vomiting, Refills(s) 0 Start Date: 12/09/19 Status: Ordered polyethylene glycol 3350 48877 mg powder for oral solution (6 sources) Osmotic Laxative Start: 12-04-2018 take 17 g by mouth once daily as needed for constipation Miralax 17 gram packet 17 gram, Oral, Daily, PRN Constipation, dissolve in water before taking Start Date: 12/04/18 Status: Ordered Comment on above: Take 17 g by mouth a s needed. ProAir HFA 90 mcg/inh inhalation aerosol (5 sources) Start: 10-08-2019 take 1 puff(s) by inhalation every six hours ProAir HFA 90 mcg/inh inhalation aerosol 1 puff(s), Inhalation, q6hr Shortness of breath or wheezing Start Date: 10/08/19 Status: Ordered promethazine hydrochloride 25 mg oral tablet (1 source) Phenothiazine Start: 10-08-2019 take 1 tablet by mouth every six hours as needed for nausea promethazine 25 mg Tab 25 mg = 1 tab(s), Oral, q6hr, PRN as needed for nausea/vomiting Start Date: 10/08/19 Status: Ordered Completed/Discontinued Medications Medication Drug Class(es) Dates Sig (Normalized) Sig (Original) Acetaminophen / oxyCODONE (7 sources) Opioid Agonist Start: 10-29-2019 Percocet 325 mg-5 mg Tab See Instructions, as needed for pain, 40 tab(s), Refill(s) 0, 1-2 orally every 4-6hrs as needed for pain Dx: M17.12, Z96.642 Duration: 7 days, [facility], 161.5, cm, 10/09/19 6:34:00 EDT, Height/Length Dosing, 80.1, kg, 10/11/19 12... Start Date: 10/29/19 Status: Ordered Start: 10-29-2019 Percocet 325 m g-5 mg Tab See Instructions, as needed for pain, 40 tab(s), Refill(s) 0, 1-2 orally every 4-6hrs as needed for pain Dx: M17.12, Z96.642 Duration: 7 days, [facility], 161.5, cm, 10/09/19 6:34:00 EDT, Height/Length Dosing, 80.1, kg, 10/11/19 12... Start Date: 10/29/19 Status: Ordered cyclobenzaprine hydrochloride 10 mg oral tablet (1 source) Muscle Relaxant End: 08-19-2021 cyclobenzaprine (FLEXERIL) 10 mg tablet Take 10 mg by mouth as needed. 0 08/19/2021 Discontinued Comment on above: Take 10 mg by mouth as needed. irbesartan 150 mg oral tablet (9 sources) Angiotensin 2 Receptor Roberto Carlos Start: 10-08-2019 End: 08-19-2021 irbesartan (AVAPRO) 150 mg tablet Comment on above: Take 150 mg by mouth daily at bedtime. losartan potassium 100 mg oral tablet (4 sources) Angiotensin 2 Receptor Roberto Carlos Start: 06-19-2018 losartan (COZAAR) 100 mg tablet meloxicam 15 mg oral tablet (4 sources) Nonsteroidal Anti-inflammatory Drug Start: 07-30-2019 meloxicam (MOBIC) 15 mg tablet Take 15 mg by mouth. 0 07/30/2019 Active Comment on above: Take 15 mg by mouth. OXcarbazepine 300 mg oral tablet (4 sources) Anti-epileptic Agent take 1 tablet by mouth twice daily OXcarbazepine (TRILEPTAL) 300 mg tablet Take 300 mg by mouth twice daily. 0 Active Comment on above: Take 300 mg by mouth twice daily. Problems Active Problems Problem Classification Problem Date Documented Da te Episodic/Chronic Abdominal pain (6 sources) Stomach ache 06-07-2021 Episodic Deficiency and other anemia (1 source) Iron deficiency anemia due to blood loss; Translations: [Iron deficiency anemia secondary to blood loss (chronic)] Chronic Deficiency and other anemia (1 source) Iron deficiency anemia secondary to blood loss (chronic); Translations: [Iron deficiency anemia due to chronic blood loss] Onset: 8 Chronic Deficiency and other anemia (4 sources) Anemia; Translations: [Anemia, unspecified] 01-25-2018 Episodic Disorders of lipid metabolism (11 sources) Hypercholesterolemia; Translations: [Pure hypercholesterolemia, unspecified] 08-08-2013 Chronic Diverticulosis and diverticulitis (7 sources) Diverticula of intestine; Translations: [Diverticulosis of intestine, part unspecified, without perforation or abscess without bleeding] Onset: 2 Chronic Esophageal disorders (15 sources) Gastroesophageal reflux disease; Translations: [Obstruction of esophagus] Onset: 2 08-08-2013 Chronic Essential hypertension (11 sources) Hypertensive disorder; Translations: [Essential (primary) hypertension] 10-19-2010 Chronic Headache; including migraine (7 sources) Migraine 10-08-2019 Chronic Mood disorders (7 sources) Depressive disorder 12-04-2018 Chronic Neoplasms of unspecified nature or uncertain behavior (8 sources) Monoclonal gammopathy; Translations: [Monoclonal gammopathy of uncertain significance] Onset: 8 Chronic Osteoarthritis (7 sources) Osteoarthritis of knee 10-08-2019 Chronic Other gastrointestinal disorders (11 sources) Irritable bowel syndrome; Translations: [Irritable bowel syndrome without diarrhea] 10-19-2010 Chronic Other gastrointestinal disorders (7 sources) Dysphagia; Translations: [Dysphagia, unspecified] Onset: 2 Episodic Other gastrointestinal disorders (7 sources) Heartburn; Translations: [Heartburn] Onset: 2 Episodic Other nutritional; endocrine; and metabolic disorders (1 source) History of iron deficiency; Translations: [Personal history of other endocrine, nutritional and metabolic disease] Episodic Past or Other Problems Problem Classification Problem Date Documented Date Episodic/Chronic Abdominal hernia (6 sources) Diaphragmatic hernia without obstruction or gangrene; Translations: [Paraesophageal hernia] Onset: 01-18-2018 Episodic Residual codes; unclassified (4 sources) History of hernia repair; Translations: [Other specified postprocedural states] Onset: 03-01-2018 03-01-2018 Episodic Unclassified (1 source) Exposure to 2019 novel coronavirus; Translations: [Contact with and (suspected) exposure to COVID19] Results Test Name Value Interpretation Reference Range Facil ity Auto Diffon 2023 Basophils/100 WBC (Bld) 0.4 % Normal 0.0-2.0 [facility] Comment on above: Order Comment: Order Added by Discern Expert. Performed By: #### 1 [id number], [id number], [id number], [id number] #### [facility] [address] [place] [address] Basophils/Leukocytes Auto (B ld) [Pure # fraction] 0.0 E9/L Normal 0.0-0.2 [facility] Comment on above: Order Comment: Order Added by Discern Expert. Performed By: #### 1 [id number], 6000974, 4145793, [id number] #### [facility] [address] [place] [address] Eosinophils/100 WBC (Bld) 5.9 % Normal 0.0-8.0 [facility] Comment on above: Order Comment: Order Added by Discern Expert. Performed By: #### 1 [id number], 9916780, 1164906, 4058448 #### [facility] [address] [place] [address] Eosinophils/Leukocytes Auto (Bld) [Pure # fraction] 0.4 E9/L Normal 0.0-0.5 [facility] Comment on above: Order Comment: Order Added by Discern Expert. Performed By: #### 1 [id number], 1477315, 5219950, [id number] #### [facility] [address] [place] [address] Lymphocytes/100 WBC (Bld) 30.4 % Normal 14.0-50.0 [facility] Comment on above: Order Comment: Order Added by Discern Expert. Performed By: #### 1 [id number], 2459267, 6837394, 2520091 #### [facility] [address] [place] [address] Lymphocytes/Leukocytes Auto (Bld) [Pure # fraction] 2.0 E9/L Normal 1.0-4.0 [facility] Comment on above: Order Comment: Order Added by Discern Expert. Performed By: #### 1 [id number], 2358293, 9953358, 3328386 #### [facility] [address] [place] [address] Monocytes/100 WBC (Bld) 11.1 % Normal 4.0-14.0 [facility] Comment on above: Order Comment: Order Added by Discern Expert. Performed By: #### 1 [id number], 0397109, 9437107, 9236085 #### [facility] [address] [place] [address] Monocytes/Leukocytes Auto (B ld) [Pure # fraction] 0.7 E9/L Normal 0.2-1.0 [facility] Comment on above: Order Comment: Order Added by Discern Expert. Performed By: #### 1 [id number], 1356331, 2681972, 2707368 #### [facility] [address] [place] [address] Neutrophils/100 WBC (Bld) 52.2 % Normal 36.0-75.0 [facility] Comment on above: Order Comment: Order Added by Discern Expert. Performed By: #### 1 [id number], 2272114, 4890052, 3081372 #### [facility] [address] [place] [address] Neutrophils/Leukocytes Auto (Bld) [Pure # fraction] 3.5 E9/L Normal 2.0-7.5 [facility] Comment on above: Order Comment: Order Added by Discern Expert. Performed By: #### 1 [id number], 5987002, 1568764, 5730937 #### [facility] [address] [place] [address] CBC w/ Auto Diffon 3 Erythrocyte distribution wid th (RBC) [Ratio] 13.0 % Normal 10.9-14.2 [facility] Comment on above: Performed By: #### 1 [id number], 4501983, 4389742, 7997968 #### [facility] [address] [place] [address] Hematocrit (Bld) [Volume fraction] 42.3 % Normal 34.0-46.0 [facility] Comment on above: Performed By: #### 1 8434726, 0122249, 1247150, 7292997 #### [facility] [address] [place] [address] Hemoglobin (Bld) [Mass/Vol] 14.3 g/dL Normal 12.0-16. 0 [facility] Comment on above: Performed By: #### 1 7280510, 0757911, 4713215, 2411467 #### [facility] [address] [place] [address] MCH (RBC) [Entitic mass] 31.7 pg Normal 27.0-34.0 [facility] Comment on above: Performed By: #### 1 [id number], 2211309, 8244658, 5215614 #### [facility] [address] [place] [address] MCHC (RBC) [Mass/Vol] 33.8 g/dL Normal 31.4-36.0 [facility] Comment on above: Performed By: #### 1 0771018, 2556554, 1932836, 0019461 #### [facility] [address] [place] [address] MCV (RBC) [Entitic vol] 93.7 fL Normal 80.0-100.0 [facility] Comment on above: Performed By: #### 1 5046500, 5814617, 0714047, 3697628 #### [facility] [address] [place] [address] Platelet mean volume (Bld) [Entitic vol] 8.2 fL Normal 6.4-10.8 [facility] Comment on above: Performed By: #### 1 8651352, 9991587, 7634115, 2739124 #### [facility] [address] [place] [address] Platelets (Bld) [#/Vol] 407.0 E9/L Normal 150.0-500.0 [facility] Comment on above: Performed By: #### 1 5320180, 0292697, 8316914, 0228325 #### [facility] [address] [place] [address] RBC (Bld) [#/Vol] 4.5 E12/L Normal 4.3-5.9 [facility] Comment on above: Performed By: #### 1 0045492, 9734002, 0853990, 7592440 #### [facility] [address] [place] [address] WBC corrected for nucl RBC A uto (Bld) [#/Vol] 6.6 E9/L Normal 4.0-11.0 [facility] Comment on above: Performed By: #### 1 9152691, 2079036, 1896707, 9313625 #### [facility] [address] [place] [address] CMPon 2023 Albumin [Mass/Vol] 3.7 g/dL Normal 3.3-5.0 [facility] Comment on above: Performed By: #### 1 [id number], 9684275, 2513308, 4841569 #### [facility] [address] [place], [place] [id number] Albumin/Globulin (S) [Mass conc ratio] 0.9 Low 1.1-2.2 [facility] Comment on above: Performed By: #### 1 0745587, 3487641, 7611840, 4195229 #### [facility] [address] [place] [address] ALP [Catalytic activity/Vol] 108 Int._Unit/L High 21 -98 [facility] Comment on above: Performed By: #### 1 9951344, 5045063, 4457029, 1802063 #### [facility] [address] [place] [address] 73181 ALT No additional P-5'-P [Catalytic activity/Vol] 18 Int._Unit/L Normal 6-46 [facility] Comment on above: Performed By: #### 1 9779107, 6750660, 3207885, 3803688 #### [facility] [address] [place] [address] AST [Catalytic activity/Vol] 20 Int._Unit/L Normal 5-4 3 [facility] Comment on above: Performed By: #### 1 5825401, 0924965, 9491258, 6965602 #### [facility] [address] [place] [address] Bilirubin [Mass/Vol] 0.7 mg/dL Normal 0.0-1.1 [facility] Comment on above: Performed By: #### 1 7390319, 9788498, 9888498, 5770322 #### [facility] [address] [place] [address] Creatinine [Mass/Vol] 1.0 mg/dL Normal 0.5-1.3 [facility] Comment on above: Performed By: #### 1 6295217, 5111902, 7097229, 8543219 #### [facility] [address] [place] [address] Globulin (S) [Mass/Vol] 4.1 g/dL High 1.4-4.0 [facility] Comment on above: Performed By: #### 1 3877407, 8652475, 4664061, 2196554 #### [facility] [address] [place] [address] Protein [Mass/Vol] 7.8 g/dL Normal 6.0-7.8 [facility] Comment on above: Performed By: #### 1 8841136, 3781536, 2298770, 4087617 #### [facility] [address] [place] [address] Urea nitrogen [Mass/Vol] 14 mg/dL Normal 5-21 [facility] Comment on above: Performed By: #### 1 5263411, 2928330, 8317619, 9118928 #### [facility] [address] [place] [address] Urea nitrogen/Creatinine [Ma ss ratio] 14 No Units Normal 10-20 [facility] Comment on above: Performed By: #### 1 9205717, 2928675, 3372908, 0669005 #### [facility] [address] [place] [address] Anion gap [Moles/Vol] 12 mmol/L Normal 6-16 [facility] Comment on above: Performed By: #### 1 4024477, 9307272, 2529836, 0569063 #### [facility] [address] [place] [address] Calcium [Mass/Vol] 9.7 mg/dL Normal 8.9-11.1 [facility] Comment on above: Performed By: #### 1 9618457, 9921520, 9215503, 8945249 #### [facility] [address] [place] [address] Chloride [Moles/Vol] 106 mmol/L Normal 101-111 [facility] Comment on above: Performed By: #### 1 4424344, 6437857, 0607993, 3367553 #### [facility] [address] [place] [address] CO2 [Moles/Vol] 27 mmol/L Normal 21-31 [facility] Comment on above: Performed By: #### 1 3715639, 9271488, 7427059, 2218095 #### [facility] [address] [place] [address] Glucose [Mass/Vol] 95 mg/dL Normal 55-199 [facility] Comment on above: Result Comment: If t his glucose result represents a fasting glucose, interpretation should refer to the following reference range: 55-99 mg/dL Performed By: #### 1 9704339, 7698910, 9301389, 0451894 #### [facility] [address] [place] [address] Potassium [Moles/Vol] 3.9 mmol/L Normal 3.5-5.3 [facility] Comment on above: Performed By: #### 1 [id number], 9215754, 1595390, 8349602 #### [facility] [address] [place] [address] Sodium [Moles/Vol] 141 mmol/L Normal 135-145 [facility] Comment on above: Performed By: #### 1 2996060, 0568495, 6802511, 9622219 #### [facility] [address] [place] [address] Consent for Treatmenton 12-21 Consent for Treatment [id number] Normal [facility] Discharge Instructionson Discharge Instructions [id number] Normal [facility] ED Clinical Summaryon 2022 ED Clinical Summary (Inserted Image. Gerri ble to display) [address] [address] ED Clinical Summary Person Information Name: BRENDA MCCLAIN [facility] Age: 73 Years : 1950 Sex: Female Language: [place] Island[place] PCP: Pam Villalobos MD Marital Status: Phone: [phone] Visit Id: Visit Reason: Rash; Headache - Recurrent; MIGRAINES Speciality: Acuity: 3 Enc Type: Emergency Med Service: Emergency Arrival: 2023 12:14:08 Discharge: 2023 14:40:37 LOS: 000 02:26 Checkin: 2023 12:14:08 Checkout: 2023 14:40:37 Dispo Type: Home (Routine DC) EVENTS: Event Name Event Status Request Date/Time Start Date/Time Complete Date/Time Arrive Complete 2023 12:14:08 2023 12:14:08 2023 12:14:08 Document Home Meds Request 2023 12:14:08 Triage Complete 2023 12:14:08 2023 12:28:53 2023 12:28:53 Registration Complete 2023 12:18:18 2023 12:18:18 2023 12:18:18 Reg Complete Request 2023 12:18:18 Reg Bed Request Complete 2023 12:18:18 2023 12:18:18 2023 12:18:18 Isolation Screening Request 2023 12:28:53 Pending Labs Complete 2023 12:43:58 2023 13:21:14 Lab Complete 2023 12:43:58 2023 13:21:14 Pending Labs Complete 2023 13:01:57 2023 13:01:57 2023 13:21:15 Lab Complete 2023 13:01:57 2023 13:01:57 2023 13:21:15 Pending Labs Complete 2023 13:05:01 2023 13:05:01 2023 13:05:08 Lab Complete 2023 13:05:01 2023 13:05:01 2023 13:05:08 Bed Assign Complete 2023 13:10:41 2023 13:10:41 2023 13:10:41 Dr Exam Complete 2023 13:10:41 2023 13:21:33 2023 13:21:33 RN Exam Complete 2023 13:10:41 2023 14:14:29 2023 14:14:29 Pending Labs Complete 2023 13:12:48 2023 13:12:48 2023 13:12:48 Pending Labs Complete 2023 13:16:06 2023 13:16:06 2023 13:16:06 Registration Request 2023 13:21:33 Meds Admin Request 2023 13:40:06 Discharge Complete 2023 14:20:58 2023 14:40:42 2023 14:40:42 Transfer Complete 2023 14:40:42 2023 14:40:42 2023 14:40:42 [place]DR[place] [address] [facility] [place] [phone] [facility] DOC NOTES: MEDICAL INFORMATION: Prescriptions Given: New Medications [facility], [address] [place], [place] [id number], [phone] ketoconazole topical (ketoconazole Top 2% Crm) 1 Application Topical every day for 14 Days. apply to fungal infection. Refills: 0. Medications to Continue with No Changes Other Medications acetaminophen (Tylenol) 500 Milligram By Mouth every 6 hours as needed as needed for pain. acetaminophen-oxycodone (Percocet 325 mg-5 mg Tab) 1-2 orally every 4-6hrs as needed for pain Dx: M17.12, Z96.642 Duration: 7 days; as needed as needed for pain. Refills: 0. albuterol (ProAir HFA 90 mcg/inh inhalation aerosol) 1 Puffs Inhalation every 6 hours as needed Shortness of breath or wheezing. aspirin (Ecotrin 325 mg Tab-EC) 1 Tablets By Mouth twice a day (after meals). Refills: 0. atorvastatin (atorvastatin 10 mg Tab) 1 Tablets By Mouth every day. citalopram (Celexa) 20 Milligram By Mouth at bedtime. dicyclomine (Bentyl) 10 Milligram By Mouth 4 times a day as needed Spasm. diphenhydrAMINE (Benadryl) 25 Milligram By Mouth once a day (at bedtime) as needed as needed for itching. docusate (Colace 100 mg Cap) 1 Capsules By Mouth 2 times a day as needed for constipation. Refills: 0. eletriptan (Relpax 40 mg Tab) 1 Tablets By Mouth every day as needed Migraine headache. hydrochlorothiazide (hydrochlorothiazide 25 mg oral tablet) 1 Tablets By Mouth every day. irbesartan (irbesartan 150 mg Tab) 1 Tablets By Mouth every day. loratadine (loratadine 10 mg Tab) 1 Tablets By Mouth every day. magnesium hydroxide (magnesium hydroxide 8% Oral Susp 30 mL) 30 Milliliter By Mouth 2 times a day as needed Constipation. multivitamin with minerals (Celebrate Multivitamin) 1 tab By Mouth every day. ondansetron (Zofran) 4 Milligram By Mouth 2 times a day as needed as needed for nausea/vomiting. polyethylene glycol 3350 (Miralax 17 gram packet) 17 Gram By Mouth every day as needed Constipation. dissolve in water before taking. PATIENT EDUCATION INFORMATION: Instructions: Migraine Headache; Intertrigo Follow up: With: Address: When: Pam Villalobos [address] [place] [address] Pic[employer]y ([employer] In 3 days 01/11/2023 Comments: Call the office of your primary care doctor to arrange for follow-up within the above-stated timeframe. Follow-up with your primary care doctor about this ED visit. You should review your labs, imaging, and diagnoses from this ED visit with your primary care physician. There are occasionally non-emergent findings that require additional follow-up after your ED visit. (more content not included)... Normal [facility] ED Note-Physicianon 01-09-20 ED Note-Physician Basic Information Time Seen: Gray Moon DO 2023 13:21 Chief Complaint patient c/o migraine x4 days. pt denies vision changes, speech changes or unilateral weakness hx migraines. also c/o generalized body rash that started several weeks ago- was put on prednisone by derm. rash came back once steroids were gone. History of Present Illness 73-year-old female to the emergency department with chief complaint of migraine and rash. Patient reports for the last 4 days she has had a typical migraine for herself. Outpatient meds did not work. She reports she has responded well to migraine cocktail in the past. She denies any vision changes, numbness, weakness, tingling, difficulty walking or difficulty speaking. She also reports that for the last several weeks she has been suffering from a generalized pruritic rash that started around the same time that she developed candidal intertrigo. She has been treating with some nystatin powder intermittently however it has not cleared up. She is otherwise at her baseline health. Review of Systems A 10 point review of systems is negative except as noted above. Medical and Surgical History: Reviewed and noted Social history: Lives at home Tobacco: Denies Physical Exam Vitals & Measurements T: 36.7 ?C(Oral) HR: 75(Monitored) RR: 15 BP: 150/98 SpO2: 97% HT: 157.48 cm WT: 80.7 kg BMI: 32.54 VITALS: I have reviewed the triage vital signs. GENERAL: Well developed, well appearing adult in no acute distress. NEURO: Alert and oriented x4. Moves all extremities. Face is symmetric and expressive. Cranial nerves II through XII grossly intact as tested. Muscular strength and sensation grossly intact upper and lower extremities bilaterally. No dysarthria. No aphasia. No ataxia. Normal gait. NIHSS 0. EYES: PERRL. No scleral icterus or conjunctival injection. No discharge. HENT: Normocephalic, atraumatic. Hearing is grossly intact. Nares grossly patent and without discharge. Mucous membranes moist. NECK: No JVD. Patient moves neck without restriction. CARDIO: Rhythm regular. Normal rate. No murmur, rub, or gallop. Pulses equal bilaterally in the upper and lower extremity. No lower extremity edema. PULM: Lungs clear to auscultation in all granados. No wheezes, rales, or rhonchi. No conversational dyspnea. No splinting, stridor, or accessory muscle use. GI/: Abdomen is soft and non-tender. Normoactive bowel sounds. EXTREMITIES: Symmetric muscle bulk. No joint swelling. No clubbing, cyanosis, or deformity. SKIN: Warm and dry. Normal turgor. Generalized dyshidrotic rash. No petechia, purpura, sloughing, bullae. Candidal intertrigo under her pannus. PSYCH: Mood, affect, and interaction is appropriate to the setting. Medical Decision Making 73-year-old female with migraine and rash. Vital stable, the patient is afebrile. Neurologic examination is nonfocal. Migraine is typical for her. No indication for imaging. Will treat symptomatically, patient agrees with this plan. Migraine cocktail was given and she had significant improvement in her migraine. Patient also has a generalized rash which has not been ongoing for several weeks. Sounds as though the ongoing rash is a id reaction to a candidal intertrigo. We will step up therapy for the intertrigo which I believe will help the rash. She is given Kenalog as well as a prescription for ketoconazole. Patient agrees with this plan. She will follow-up with her primary care doctor. All questions were answered. Patient is discharged home. 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) Orders: diphenhydrAMINE, 12.5 mg = 0.25 mL, Injection, IV Push, Once, Stop date 01/08/23 13:39:00 EST, STAT, Start date 01/08/23 13:39:00 EST, 01/08/23 13:39:00 EST ketoconazole topical, 1 starla, Topical, Daily for 14 day(s), 60 gm, Refill(s) 0, apply to fungal infection, [facility], 157.5, cm, 01/08/23 12:28:00 EST, Height/Length Dosing, 80.7, kg, 01/08/23 12:28:00 EST, Weight Dosing ketorolac, 15 mg = 1 mL, Injection, IV Push, Once, Stop date 01/08/23 13:39:00 EST, STAT, Start date 01/08/23 13:39:00 EST, 01/08/23 13:39:00 EST metoclopramide, 5 mg = 1 mL, Injection, IV Push, Once, Stop date 01/08/23 13:39:00 EST, STAT, Start date 01/08/23 13:39:00 EST, 01/08/23 13:39:00 EST Sodium Chloride 0.9% intravenous solution 500 mL, 500 mL, IV, 999 mL/hr, STAT, Start date 01/08/23 13:39:00 EST, 0.5 hour(s), Total volume (mL): 500, 80.7 kg, 1.88, m2 triamcinolone, 40 mg = 1 mL, Susp-Inj, IntraMuscular, Once, Stop date 01/08/23 13:39:00 EST, STAT, Start date 01/08/23 13:39:00 EST, 01/08/23 13:39:00 EST Automated Diff CBC w/ Auto Diff Comprehensive Metabolic Panel eGFR Extra Blue Tube Extra SST Tube Medications Administered Given Sodium Chloride 0.9% IV Irena 500 mL 500 mL, 500 mL, IV diphenhydrAMINE (more content not included)... Normal [facility] Comment on above: Result Comment: Elec tronically Signed By: Gray Moon DO\.br\Date and Time Signed: 01/08/23 18:48 EST ED Patient Education Noteon 2023 ED Patient Education Note Endocrinology Intertrigo Intertrigo is skin irritation or inflammation (dermatitis) that occurs when folds of skin rub together. The irritation can cause a rash and make skin raw and itchy. This condition most commonly occurs in the skin folds of these areas: ? Toes. ? Armpits. ? Groin. ? Under the belly. ? Under the breasts. ? Buttocks. Intertrigo is not passed from person to person (is not contagious). What are the causes? This condition is caused by heat, moisture, rubbing (friction), and not enough air circulation. The condition can be made worse by: ? Sweat. ? Bacteria. ? A fungus, such as yeast. What increases the risk? This condition is more likely to occur if you have moisture in your skin folds. You are more likely to develop this condition if you: ? Have diabetes. ? Are overweight. ? Are not able to move around or are not active. ? Live in a warm and moist climate. ? Wear splints, braces, or other medical devices. ? Are not able to control your bowels or bladder (have incontinence). What are the signs or symptoms? Symptoms of this condition include: ? A pink or red skin rash in the skin fold or near the skin fold. ? Raw or scaly skin. ? Itchiness. ? A burning feeling. ? Bleeding. ? Leaking fluid. ? A bad smell. How is this diagnosed? This condition is diagnosed with a medical history and physical exam. You may also have a skin swab to test for bacteria or a fungus. How is this treated? This condition may be treated by: ? Cleaning and drying your skin. ? Taking an antibiotic medicine or using an antibiotic skin cream for a bacterial infection. ? Using an antifungal cream on your skin or taking pills for an infection that was caused by a fungus, such as yeast. ? Using a steroid ointment to relieve itchiness and irritation. ? the skin fold with a clean cotton cloth to absorb moisture and allow air to flow into the area. Follow these instructions at home: ? Keep the affected area clean and dry. ? Do not scratch your skin. ? Stay in a cool environment as much as possible. Use an air conditioner or fan, if available. ? Apply felu-cao-nytyqnp and prescription medicines only as told by your health care provider. ? If you were prescribed an antibiotic medicine, use it as told by your health care provider. Do not stop using the antibiotic even if your condition improves. ? Keep all follow-up visits as told by your health care provider. This is important. How is this prevented? ? Maintain a healthy weight. ? Take care of your feet, especially if you have diabetes. Foot care includes: ? Wearing shoes that fit well. ? Keeping your feet dry. ? Wearing clean, breathable socks. ? Protect the skin around your groin and buttocks, especially if you have incontinence. Skin protection includes: ? Following a regular cleaning routine. ? Using skin protectant creams, powders, or ointments. ? Changing protection pads frequently. ? Do not wear tight clothes. Wear clothes that are loose, absorbent, and made of cotton. ? Wear a bra that gives good support, if needed. ? Shower and dry yourself well after activity or exercise. Use a dehairer on a cool setting to dry between skin folds, especially after you bathe. ? If you have diabetes, keep your blood sugar under control. Contact a health care provider if: ? Your symptoms do not improve with treatment. ? Your symptoms get worse or they spread. ? You notice increased redness and warmth. ? You have a fever. Summary ? Intertrigo is skin irritation or inflammation (dermatitis) that occurs when folds of skin rub together. ? This condition is caused by heat, moisture, rubbing (friction), and not enough air circulation. ? This condition may be treated by cleaning and drying your skin and with medicines. ? Apply mtft-dgg-rulkynn and prescription medicines only as told by your health care provider. ? Keep all follow-up visits as told by your health care provider. This is important. This information is not intended to replace advice given to you by your health care provider. Make sure you discuss any questions you have with your health care provider. Document Revised: 11/22/2021 Document Reviewed: 11/22/2021 Elsevier Patient Education ? 2022 [employer] Neurology Migraine Headache A migraine headache is an intense, throbbing pain on one side or both sides of the head. Migraine headaches may also cause other symptoms, such as nausea, vomiting, and sensitivity to light and noise. A migraine headache can last from 4 hours to 3 days. Talk with your doctor about what things may bring on (trigger) your migraine headaches. What are the causes? The exact cause of this condition is not known. However, a migraine may be caused when nerves in the brain become irritated and release chemicals that cause inflammation of blood vessels. This inflammation c (more content not included)... Normal [facility] ED Patient Summaryon 023 ED Patient Summary (Inserted Image. Gerri ble to display) [address] [address] Patient Discharge Instructions Person Information Name: BRENDA MCCLAIN Age: 73 Years Arrival Date: 2023 12:14:08 Discharge Diagnosis: Candidal intertrigo; Classic migraine; Id reaction Primary Care Physician: Pam Villalobos MD Provider Information Primary Provider: Gray Moon DO Advanced Plant Specialist:None The exam and treatment you received in the Emergency Department were for an urgent problem and are not intended as complete care. It is important that you follow up with a doctor, nurse practitioner, or physician?s assistant program manager for ongoing care. If your symptoms become worse or you do not improve as expected and you are unable to reach your usual health care provider, you should return to the Emergency Department. We are available 24 hours a day. BRENDA MCCLAIN has been given the following list of patient education materials, prescriptions and follow-up instructions: Follow-up Instructions: With: Address: When: [place] [address] Piccsy (1) In 3 days 01/11/2023 Comments: Call the office of your primary care doctor to arrange for follow-up within the above-stated timeframe. Follow-up with your primary care doctor about this ED visit. You should review your labs, imaging, and diagnoses from this ED visit with your primary care physician. There are occasionally non-emergent findings that require additional follow-up after your ED visit. If you were prescribed medications you should discuss possible side-effects and drug interactions with your pharmacist. Call 911 or go to the nearest Emergency Department if you develop any new or worsening symptoms. Seek immediate medical attention if you develop: worsening headache, nausea, vomiting, confusion, weakness, loss of motion in your arms or legs, loss of control of your urine or stool, difficulty waking from sleep, neck pain, fever, or any new or worsening symptoms. Keep skin rash area clean and dry. Apply ketoconazole ointment to your fungal rash. In the event that this physician does not participate in your insurance network, please consult with your insurance company to find a nearby participating provider. Patient Education Materials: Migraine Headache; Intertrigo A MESSAGE TO ALL PATIENTS REGARDING OPIOIDS PRESCRIPTION OPIOIDS: WHAT YOU NEED TO KNOW Prescription opioids can be used to help relieve vkxryzng-mf-hxpgaf pain and are often prescribed following a surgery or injury, or for certain health conditions. These medications can be an important part of the treatment but also come with serious risks. It is important to work with your healthcare provider to make sure you are getting the safest, most effective care. WHAT ARE THE RISKS AND SIDE EFFECTS OF OPIOID USE? Prescription opioids carry serious risks of addiction and overdose, especially with prolonged use. An opioid overdose, often marked by slowed breathing, can cause sudden . The use of prescription opioids can have a number of side effects as well, even when taken as directed: ? Tolerance?meaning you might need to take more of the medication for the same pain relief ? Physical dependence?meaning you have symptoms of withdrawal when a medication is stopped ? Increased sensitivity to pain ? Constipation ? Nausea, vomiting, and dry mouth ? Sleepiness and dizziness ? Confusion ? Depression ? Low levels of testosterone that can result in lower sex drive, energy, and strength ? Itching and sweating RISKS ARE GREATER WITH: ? History of drug misuse, substance use disorder, or overdose ? Mental health conditions (such as depression or anxiety) ? Sleep apnea ? Older age (65 years and older) ? Avoid alcohol while taking prescription opioids. Also, unless specifically advised by your health care provider, medications to avoid include: ? Benzodiazepines (such as Xanax or Valium) ? Muscle relaxants (such as Soma or Flexeril) ? Hypnotics (such as Ambien or Lunesta) ? Other prescription opioids KNOW YOUR OPTIONS Talk to your health care provider about ways to manage your pain that don?t involve prescription opioids. Some of these options may actually work better and have fewer risks and side effects. Options may include: ? Pain relievers such as acetaminophen, ibuprofen, and naproxen ? Some medication that are also used for depression or seizures ? Physical therapy and exercise ? Cognitive behavioral therapy, a psychological, goal-directed approach, in which patients learn how to modify physical, behavioral, and emotional triggers of pain and stress. IF YOU ARE PRESCRIBED OPIOIDS FOR PAIN: ? Never take opioids in greater amounts or more often than prescribed. ? Follow up with your primary health care provider. o Work together to create a pl (more content not included)... Normal [facility] eGFRon 2023 GFR/1.73 sq M.predicted leonela g non-blacks MDRD (S/P/Bld) [Vol rate/Area] 59 mL/min/1.73 m2 Normal >=59 [facility] Comment on above: Order Comment: Order added by Discern Expert. Result Comment: [employer]fuels Operations Manager jas kidney disease could be indicated at eGFR's of less than 60 mL/min/1.73m2. Kidney failure is indicated at less than 15 mL/min/1.73m2. Performed By: #### 1 [id number], [id number] #### [facility] [address] [place] [address] BUNon 08-24-2022 Urea nitrogen [Mass/Vol] 23 mg/dL High 5-21 [facility] Comment on above: Performed By: #### 1 [id number], [id number] #### [facility] [address] [place] [address] CHEMISTRYOrdered By: SYSTEM SYSTEM on 08-24-2022 Albumin [Mass/Vol] 4.0 g/dL Normal 3.3 - 5.0 gm/dL FT Remisol Albumin/Globulin [Mass ratio] 1.1 {ratio} Normal 1.1 - 2.2 FT Remisol ALP [Catalytic activity/Vol] 93 [iU]/d Normal 21 - 98 Int._Unit/L FT Remisol ALT No additional P-5'-P [Catalytic activity/Vol] 19 [iU]/d Normal 6 - 46 Int._Unit/L [facility] Remisol AST [Catalytic activity/Vol] 24 [iU]/d Normal 5 - 43 Int._Unit/L FT Remisol Bilirubin [Mass/Vol] 0.6 mg/dL Normal 0.0 - 1.1 mg/dL FT Remisol Bilirubin.direct [Mass/Vol] mg/dL Normal 0.1 - 0.4 mg/dL FT Remisol Bilirubin.indirect [Mass or moles/Vol] Unable to Calculate mg/dL Invalid Interpretation Code 0.1 - 0.9 mg/dL FT Remisol Creatinine [Mass/Vol] 1.0 mg/dL Normal 0.5 - 1.3 mg/dL [facility] Remisol GFR/1.73 sq M.predicted among non-blacks MDRD (S/P/Bld) [Vol rate/Area] 59 mL/min/1.73 m2 Normal >=59mL/min/1. 73 m2 [facility] Chem S Globulin (S) [Mass/Vol] 3.6 g/dL Normal 1.4 - 4.0 gm/dL FT Remisol Protein [Mass/Vol] 7.6 g/dL Normal 6.0 - 7.8 gm/dL [facility] Remisol Urea nitrogen [Mass/Vol] 23 mg/dL High 5 - 21 mg/dL FT Remisol Consent for Treatmenton Consent for Treatment [id number] Normal [facility] Creatinineon 08-24-2022 Creatinine [Mass/Vol] 1.0 mg/dL Normal 0.5-1.3 [facility] Comment on above: Performed By: #### 1 [id number], [id number] #### [facility] [address] [place] [address] Hep Func Panelon 08-24-2022 Bilirubin.indirect [Mass or moles/Vol] UTC Abnormal 0.1-0.9 [facility] Comment on above: Result Comment: Resu lt verified by Discern Rule. Performed result [facility] (Unable to Calculate) was sent as an Alpha code due the inability to calculate a valid numeric value. Performed By: #### 1 [id number], [id number], [id number] #### [facility] [address] [place] [address] Albumin [Mass/Vol] 4.0 g/dL Normal 3.3-5.0 [facility] Comment on above: Performed By: #### 1 [id number], [id number] #### [facility] [address] [place] [address] Albumin/Globulin (S) [Mass conc ratio] 1.1 Normal 1.1-2.2 [facility] Comment on above: Performed By: #### 1 [id number], [id number], [id number], [id number] #### [facility] [address] [place] [address] ALP [Catalytic activity/Vol] 93 Int._Unit/L Normal 21- 98 [facility] Comment on above: Performed By: #### 1 [id number], [id number], [id number], [id number] #### [facility] [address] [place] [address] ALT No additional P-5'-P [Catalytic activity/Vol] 19 Int._Unit/L Normal 6-46 [facility] Comment on above: Performed By: #### 1 [id number], [id number], [id number], [id number] #### [facility] [address] [place] [address] AST [Catalytic activity/Vol] 24 Int._Unit/L Normal 5-4 3 [facility] Comment on above: Performed By: #### 1 [id number], [id number], [id number], [id number] #### [facility] [address] [place] [address] Bilirubin [Mass/Vol] 0.6 mg/dL Normal 0.0-1.1 [facility] Comment on above: Performed By: #### 1 [id number], [id number], 9072956, [id number] #### [facility] [address] [place] [address] Globulin (S) [Mass/Vol] 3.6 g/dL Normal 1.4-4.0 [facility] Comment on above: Performed By: #### 1 [id number], [id number], [id number], [id number] #### [facility] [address] [place] [address] Protein [Mass/Vol] 7.6 g/dL Normal 6.0-7.8 [facility] Comment on above: Performed By: #### 1 [id number], [id number], [id number], [id number] #### [facility] [address] [place] [address] Bilirubin.direct [Mass/Vol] mg/dL Normal 0.1-0.4 [facility] Comment on above: Performed By: #### 1 [id number], [id number], [id number], [id number] #### [facility] [address] [place] [address] Physician Orderon 08-24-2022 Physician Order [id number] Normal [facility] eGFRon 08-24-2022 GFR/1.73 sq M.predicted leonela g non-blacks MDRD (S/P/Bld) [Vol rate/Area] 59 mL/min/1.73 m2 Normal >=59 [facility] Comment on above: Order Comment: Order Added by Discern Expert. Result Comment: [employer] Manager jas kidney disease could be indicated at eGFR's of less than 60 mL/min/1.73m2. Kidney failure is indicated at less than 15 mL/min/1.73m2. Performed By: #### 1 [id number], [id number], [id number], [id number] #### [facility] [address] [place] [address] CNPNon 08-22-2022 CNPN Telephone (HEMTSA) BRENDA MCCLAIN ([id number]) 1950 F Date Time Provider Department 08/22/22 MAYA GUIDRY During your visit today, we recorded the following information about you: Maya Guidry RN 08/22/2022 1:15 PM Signed ----- Message from Sanjay Adkins MD sent at 08/22/2022 12:52 PM EDT ----- Please inform the patient that her protein analysis is minimally changed. I would recommend we continue as is for now and we will see her back as scheduled Maya Guidry RN 08/22/2022 1:17 PM Signed VM left with ALFONSO message. Encouraged pt to call with any questions or concerns. Appt provided Maya Guidry RN Allergies As of Date: 08/22/2022 Noted Allergy Reaction ADHESIVE TAPE (ROSINS) 03/21/2017 2 - Rash CEFUROXIME AXETIL 03/21/2017 8 - GI Upset CLINDAMYCIN HCL 03/21/2017 5 - Intolerance Date Reviewed: 08/18/2022 Reviewed by: Deisy Andujar MA - Fully Assessed Reason for Visit: Results [95] Prescriptions as of 08/22/2022 - irbesartan (AVAPRO) 150 mg tablet - omeprazole (PRILOSEC) 40 mg capsule Take 40 mg by mouth once daily. - OXcarbazepine (TRILEPTAL) 300 mg tablet Take 300 mg by mouth twice daily. - meloxicam (MOBIC) 15 mg tablet Take 15 mg by mouth. - losartan (COZAAR) 100 mg tablet - polyethylene glycol 3350 (MIRALAX, GLYCOLAX) 17 gram packet Take 17 g by mouth as needed. - docusate sodium (COLACE) 100 mg capsule Take 100 mg by mouth as needed. - diphenhydrAMINE (BENADRYL) 25 mg capsule Take 25 mg by mouth every 6 hours as needed. - loratadine 10 mg cap Take by mouth as needed. - atorvastatin (LIPITOR) 10 mg tablet Take 10 mg by mouth once daily. - PROAIR HFA 90 mcg/actuation inhaler use 2 (TWO) puffs EVERY 4 HOURS NEEDED - Hydrochlorothiazide 12.5 mg capsule Take 25 mg by mouth once daily. - citalopram hydrobromide(CELEXA 20 MG TAB) Take one(1) tablet daily at bedtime. - dicyclomine hcl(BENTYL 10 MG CAP) Take by mouth as needed. - eletriptan hydrobromide(RELPAX 40 MG TAB) Take one(1) tablet daily as needed. 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 FERRITIN BLDon 08-19-2022 Ferritin [Mass/Vol] 108.0 ng/mL 14.7 - 205.1 ng /mL [facility] Iron and Iron binding capaci ty panelon 08-19-2022 Iron [Mass/Vol] 143 ug/dL 41 - 186 ug/dL [facility] Iron binding capacity [Mass/Vol] 336 ug/dL 232 - 386 ug/dL [facility] Iron/TIBC [Molar ratio] 42.6 % 15.0 - 57.0 % [facility] Basic metabolic 2000 panelon 08-18-2022 Anion gap [Moles/Vol] 9 mmol/L Normal 9-18 [facility] Comment on above: Order Comment: Speci men Type: BLOOD SPECIMEN Ordering Facility: [facility] Address: [address] [place] [address] Performed By: #### 2 4321-2 #### [facility] CLIA [id number] [address] [place] [address] Calcium [Mass/Vol] 9.9 mg/dL Normal 8.5-10.2 [facility] Comment on above: Order Comment: Speci men Type: BLOOD SPECIMEN Ordering Facility: [facility] Address: [address] [address] Performed By: #### 2 4321-2 #### [facility] CLIA [id number] [address] [place] [address] Chloride [Moles/Vol] 102 mmol/L Normal 97-105 [facility] Comment on above: Order Comment: Speci men Type: BLOOD SPECIMEN Ordering Facility: [facility] Address: [address] [address] Performed By: #### 2 4321-2 #### [facility] CLIA [id number] [address] [place] [address] CO2 [Moles/Vol] 29 mmol/L Normal 22-[address] [facility] Comment on above: Order Comment: Speci men Type: BLOOD SPECIMEN Ordering Facility: [facility] Address: [address] [address] Performed By: #### 2 4321-2 #### [facility] CLIA [id number] [address] [place] [address] Creatinine [Mass/Vol] 1.05 mg/dL High 0.58-0.96 [facility] Comment on above: Order Comment: Speci men Type: BLOOD SPECIMEN Ordering Facility: [facility] Address: [address] [address] Performed By: #### 2 4321-2 #### [facility] CLIA [id number] [address] [place] [address] ESTIMATED GLOMERULAR FILTRATION RATE 56 mL/min/1.73m??? Low >=60 [facility] Comment on above: Order Comment: Speci men Type: BLOOD SPECIMEN Ordering Facility: [facility] Address: [address] [place] [address] Result Comment: Elsy mated Glomerular Filtration Rate (eGFR) is calculated using the 2020 CKD-EPI creatinine equation. This equation utilizes serum creatinine, sex, and age as parameters. The creatinine assay has traceable calibration to isotope dilution-mass spectrometry. Refer to KDIGO guidelines for clinical interpretation. In patients with unstable renal function, e.g. those with acute kidney injury, the eGFR may not accurately reflect actual GFR. Performed By: #### 2 4321-2 #### [facility] CLIA [id number] [address] [place] [address] Glucose [Mass/Vol] 70 mg/dL Low 74-99 [facility] Comment on above: Order Comment: Specguilherme men Type: BLOOD SPECIMEN Ordering Facility: [facility] Address: [address] [place], [place] [address] Result Comment: The [place] Diabetes Association (ADA) provides guidance for cutoff values for fasting glucose and random glucose. The ADA defines fasting as no caloric intake for at least 8 hours. Fasting plasma glucose results between 100 to 125 mg/dL indicate increased risk for diabetes (prediabetes). Fasting plasma glucose results greater than or equal to 126 mg/dL meet the criteria for diagnosis of diabetes. In the absence of unequivocal hyperglycemia, results should be confirmed by repeat testing. In a patient with classic symptoms of hyperglycemia or hyperglycemic crisis, random plasma glucose results greater than or equal to 200 mg/dL meet the criteria for diagnosis of diabetes. Reference: Standards of Medical Care in Diabetes 2016, [place] Diabetes Association. Diabetes Care. 2016.39(Suppl 1). Performed By: #### 2 4321-2 #### [facility] CLIA [id number] [address] [place] [address] Potassium [Moles/Vol] 3.7 mmol/L Normal 3.7-5.1 [facility] Comment on above: Order Comment: Ajay nath Type: BLOOD SPECIMEN Ordering Facility: [facility] Address: [address] [place] [address] Performed By: #### 2 4321-2 #### [facility] CLIA [id number] [address] [place] [address] Sodium [Moles/Vol] 140 mmol/L Normal 136-144 [facility] Comment on above: Order Comment: Speci men Type: BLOOD SPECIMEN Ordering Facility: [facility] Address: [address] [id number] Performed By: #### 2 4321-2 #### [facility] CLIA [id number] [address] [place] [address] Urea nitrogen [Mass/Vol] 21 mg/dL Normal 7-[address] [facility] Comment on above: Order Comment: Speci men Type: BLOOD SPECIMEN Ordering Facility: [facility] Address: [address] [id number] Performed By: #### 2 4321-2 #### [facility] CLIA [id number] [address] [place] [address] Anion gap [Moles/Vol] 9 mmol/L 9 - 18 mmol/L [facility] Calcium [Mass/Vol] 9.9 mg/dL 8.5 - 10.2 mg/dL [facility] Chloride [Moles/Vol] 102 mmol/L 97 - 105 mmol/L [facility] CO2 [Moles/Vol] 29 mmol/L 22 - 30 mmol/L [facility] Creatinine [Mass/Vol] 1.05 mg/dL High 0.58 - 0.96 mg /dL [facility] Estimated Glomerular Filtration Rate 56 mL/min/1.73m Low >=60 mL/min/1.73m [facility] ic Glucose [Mass/Vol] 70 mg/dL Low 74 - 99 mg/dL [facility] Potassium [Moles/Vol] 3.7 mmol/L 3.7 - 5.1 mmol /L [facility] Sodium [Moles/Vol] 140 mmol/L 136 - 144 mmol/L [facility] Urea nitrogen [Mass/Vol] 21 mg/dL 7 - 21 mg/d L [facility] CBC W Auto Differential pane l (Bld)on 08-18-2022 Basophils (Bld) [#/Vol] 0.04 10*3/uL Normal <0.[address] [facility] Comment on above: Order Comment: Speci men Type: BLOOD SPECIMEN Ordering Facility: [facility] Address: [facility] [place] [address] Performed By: #### 5 7021-8 #### [facility] CLIA [id number] [address] [place] [address] Basophils/100 WBC (Bld) 0.6 % Normal [facility] Comment on above: Order Comment: Speci men Type: BLOOD SPECIMEN Ordering Facility: [facility] Address: [address] [place] [address] Performed By: #### 5 7021-8 #### [facility] CLIA [id number] [address] [place] [address]10 Differential cell count method Nom (Bld) Auto Normal [facility] Comment on above: Order Comment: Speci men Type: BLOOD SPECIMEN Ordering Facility: [facility] Address: [address] [place] [address] Performed By: #### 5 7021-8 #### [facility] CLIA [id number] [address] [place] [address] Eosinophils (Bld) [#/Vol] 0.21 10*3/uL Normal <0.[address] [facility] Comment on above: Order Comment: Speci men Type: BLOOD SPECIMEN Ordering Facility: [facility] Address: [address] [address] Performed By: #### 5 7021-8 #### [facility] CLIA [id number] [address] [place] [address]162 Eosinophils/100 WBC (Bld) 3.3 % Normal [facility] Comment on above: Order Comment: Speci men Type: BLOOD SPECIMEN Ordering Facility: [facility] Address: [address] [address] Performed By: #### 5 7021-8 #### [facility] CLIA [id number] [address] [place] [address]226 Erythrocyte distribution wid th (RBC) [Ratio] 13.3 % Normal 11.5-15.[address] [facility] Comment on above: Order Comment: Speci men Type: BLOOD SPECIMEN Ordering Facility: [facility] Address: [address] [address] Performed By: #### 5 7021-8 #### [facility] CLIA [id number] [address] [place] [address] Hematocrit (Bld) [Volume fraction] 41.1 % Normal 3 6.0-46.[address] [facility] Comment on above: Order Comment: Speci men Type: BLOOD SPECIMEN Ordering Facility: [facility] Address: [address] [address] Performed By: #### 5 7021-8 #### [facility] CLIA [id number] [address] [place] [address] Hemoglobin (Bld) [Mass/Vol] 13.8 g/dL Normal 11.5-15. [address] [facility] Comment on above: Order Comment: Speci men Type: BLOOD SPECIMEN Ordering Facility: [facility] Address: [address] [address] Performed By: #### 5 7021-8 #### [facility] CLIA [id number] [address] [place] [address] Immature granulocytes (Bld) [#/Vol] 0.03 10*3/uL Normal <0.[address] [facility] Comment on above: Order Comment: Speci men Type: BLOOD SPECIMEN Ordering Facility: [facility] Address: [address] [address] Performed By: #### 5 7021-8 #### [facility] CLIA [id number] [address] [place] [address]37 Immature granulocytes/100 WBC (Bld) 0.5 % Normal [facility] Comment on above: Order Comment: Speci men Type: BLOOD SPECIMEN Ordering Facility: [facility] Address: [address] [address] Performed By: #### 5 7021-8 #### [facility] CLIA [id number] [address] [place] [address] Lymphocytes (Bld) [#/Vol] 1.99 10*3/uL Normal 1.00-4.[address] [facility] Comment on above: Order Comment: Speci men Type: BLOOD SPECIMEN Ordering Facility: [facility] Address: [address] [address] Performed By: #### 5 7021-8 #### [facility] CLIA [id number] [address] [place] [address]79 Lymphocytes/100 WBC (Bld) 31.4 % Normal [facility] Comment on above: Order Comment: Speci men Type: BLOOD SPECIMEN Ordering Facility: [facility] Address: [address] [address] Performed By: #### 5 7021-8 #### [facility] CLIA [id number] [address] [place] [address]43 MCH (RBC) [Entitic mass] 31.7 pg Normal 26.0-34.[address] [facility] Comment on above: Order Comment: Speci men Type: BLOOD SPECIMEN Ordering Facility: [facility] Address: [address] [address] Performed By: #### 5 7021-8 #### [facility] CLIA [id number] [address] [place] [address]33 MCHC (RBC) [Mass/Vol] 33.6 g/dL Normal 30.5-36.0 [facility] Comment on above: Order Comment: Speci men Type: BLOOD SPECIMEN Ordering Facility: [facility] Address: [address] [address] Performed By: #### 5 7021-8 #### [facility] CLIA [id number] [address] [place] [address]44 MCV (RBC) [Entitic vol] 94.3 fL Normal 80.0-100.0 C [facility] Comment on above: Order Comment: Speci men Type: BLOOD SPECIMEN Ordering Facility: [facility] Address: [address] [place] [address] Performed By: #### 5 7021-8 #### [facility] CLIA [id number] [address] [place] [address] Monocytes (Bld) [#/Vol] 0.76 10*3/uL Normal <0.[address] [facility] Comment on above: Order Comment: Speci men Type: BLOOD SPECIMEN Ordering Facility: [facility] Address: [address] [place] [address] Performed By: #### 5 7021-8 #### [facility] CLIA [id number] [address] [place] [address]007 Monocytes/100 WBC (Bld) 12.0 % Normal [facility] Comment on above: Order Comment: Speci men Type: BLOOD SPECIMEN Ordering Facility: [facility] Address: [address] [place] [address] Performed By: #### 5 7021-8 #### [facility] CLIA [id number] [address] [place] [address]954 Neutrophils (Bld) [#/Vol] 3.30 10*3/uL Normal 1.45-7.[address] [facility] Comment on above: Order Comment: Speci men Type: BLOOD SPECIMEN Ordering Facility: [facility] Address: [address] [address] Performed By: #### 5 7021-8 #### [facility] CLIA [id number] [address] [place] [address]111 Neutrophils/100 WBC (Bld) 52.2 % Normal [facility] Comment on above: Order Comment: Speci men Type: BLOOD SPECIMEN Ordering Facility: [facility] Address: [address] [place] [address] Performed By: #### 5 7021-8 #### [facility] CLIA [id number] [address] [place] [address] Nucleated RBC (Bld) [#/Vol] 10*3/uL Normal <0.[address] [facility] Comment on above: Order Comment: Speci men Type: BLOOD SPECIMEN Ordering Facility: [facility] Address: [address] [address] Performed By: #### 5 7021-8 #### [facility] CLIA [id number] [address] [place] [address]19 Nucleated RBC/100 WBC (Bld) [Ratio] 0.0 /100 WBC Normal [facility] Comment on above: Order Comment: Speci men Type: BLOOD SPECIMEN Ordering Facility: [facility] Address: [address] [address] Performed By: #### 5 7021-8 #### [facility] CLIA [id number] [address] [place] [address]1481 Platelet mean volume (Bld) [ Entitic vol] 9.5 fL Normal 9.0-12.[address] [facility] Comment on above: Order Comment: Speci men Type: BLOOD SPECIMEN Ordering Facility: [facility] Address: [address] [address] Performed By: #### 5 7021-8 #### [facility] CLIA [id number] [address] [place] [address] Platelets (Bld) [#/Vol] 404 10*3/uL High 150-[address] [facility] Comment on above: Order Comment: Speci men Type: BLOOD SPECIMEN Ordering Facility: [facility] Address: [address] Performed By: #### 5 7021-8 #### [facility] CLIA [id number] [address] [place] [address] RBC (Bld) [#/Vol] 4.36 10*6/uL Normal 3.90-5.20 [facility] Comment on above: Order Comment: Speci men Type: BLOOD SPECIMEN Ordering Facility: [facility] Address: [address] [address] Performed By: #### 5 7021-8 #### [facility] CLIA [id number] [address] [place] [address] WBC (Bld) [#/Vol] 6.33 10*3/uL Normal 3.70-11.00 [facility] Comment on above: Order Comment: Speci men Type: BLOOD SPECIMEN Ordering Facility: [facility] Address: [address] [place] [address] Performed By: #### 5 7021-8 #### [facility] CLIA [id number] [address] [place] [address] Basophils (Bld) [#/Vol] 0.04 10*3/uL <0.11 k/uL [facility] Basophils/100 WBC (Bld) 0.6 % C [facility] Differential cell count meth od Nom (Bld) Auto [facility] Eosinophils (Bld) [#/Vol] 0.21 10*3/uL <0.46 k/ uL [facility] Eosinophils/100 WBC (Bld) 3.3 % [facility] Erythrocyte distribution wid th (RBC) [Ratio] 13.3 % 11.5 - 15.0 % [facility] Hematocrit (Bld) [Volume fraction] 41.1 % 36.0 - 46.0 % [facility] Hemoglobin (Bld) [Mass/Vol] 13.8 g/dL 11.5 - 1 5.5 g/dL [facility] Immature granulocytes (Bld) [#/Vol] 0.03 10*3/uL <0.10 k/uL [facility] Immature granulocytes/100 WB C (Bld) 0.5 % [facility] Lymphocytes (Bld) [#/Vol] 1.99 10*3/uL 1.00 - 4 .00 k/uL [facility] Lymphocytes/100 WBC (Bld) 31.4 % [facility] MCH (RBC) [Entitic mass] 31.7 pg 26.0 - 34.0 pg [facility] MCHC (RBC) [Mass/Vol] 33.6 g/dL 30.5 - 36.0 g/ dL [facility] MCV (RBC) [Entitic vol] 94.3 fL 80.0 - 100.0 fL [facility] Monocytes (Bld) [#/Vol] 0.76 10*3/uL <0.87 k/uL [facility] Monocytes/100 WBC (Bld) 12.0 % [facility] Neutrophils (Bld) [#/Vol] 3.30 10*3/uL 1.45 - 7 .50 k/uL [facility] Neutrophils/100 WBC (Bld) 52.2 % [facility] Nucleated RBC (Bld) [#/Vol] <0.01 k/ uL [facility] Nucleated RBC/100 WBC (Bld) [Ratio] 0.0 /100 WBC [facility] Platelet mean volume (Bld) [Entitic vol] 9.5 fL 9.0 - 12.7 fL [facility] Platelets (Bld) [#/Vol] 404 10*3/uL High 150 - 400 k /uL [facility] RBC (Bld) [#/Vol] 4.36 10*6/uL 3.90 - 5.20 m/uL [facility] WBC (Bld) [#/Vol] 6.33 10*3/uL 3.70 - 11.00 k/u L [facility] CNOVSPon 08-18-2022 CNOVSP Visit (SP) Office (H EMASA) BRENDA MCCLAIN ([id number]) 1950 F Date Time Provider Department 08/18/22 2:45 PM SANJAY ADKINS During your visit today, we recorded the following information about you: Temperature Pulse Respiration Blood pressure 97.1 degrees 78/minute 16/minute 117/77 Weight Height 82.5 kg 1.613 m Sanjay Adkins MD 08/19/2022 9:47 AM Signed PATIENT NAME: Brenda Mcclain DATE: 08/18/2022 PRIMARY CARE PHYSICIAN: Dr. Pam Villalobos OTHER PHYSICIANS: Dr. Garsia, Dr. Villalobos, Dr. Giordano Portions of this encounter note have been copied from my note from 08/19/2021 and has been updated where appropriate, and reflect my current medical decision making from today. CC: This is a 72 year old female with a history of iron deficiency anemia and MGUS, seen for scheduled follow-up. INTERIM HISTORY: Since the patient's last visit here she has been receiving Botox injections to her left facial area for her facial twitch. She has had no other neurological symptoms. On current medications she has had no GI symptoms. She denies any evidence of blood loss. No unusual pain. Overall the patient feels quite well today with no particular complaints. MEDICATIONS: omeprazole (PRILOSEC) 40 mg capsule Take 40 mg by mouth once daily. OXcarbazepine (TRILEPTAL) 300 mg tablet Take 300 mg by mouth twice daily. meloxicam (MOBIC) 15 mg tablet Take 15 mg by mouth. losartan (COZAAR) 100 mg tablet (Patient not taking: Reported on 08/19/2021 ) polyethylene glycol 3350 (MIRALAX, GLYCOLAX) 17 gram packet Take 17 g by mouth as needed. (Patient not taking: Reported on 08/19/2021 ) docusate sodium (COLACE) 100 mg capsule Take 100 mg by mouth as needed. (Patient not taking: Reported on 08/19/2021 ) diphenhydrAMINE (BENADRYL) 25 mg capsule Take 25 mg by mouth every 6 hours as needed. loratadine 10 mg cap Take by mouth as needed. atorvastatin (LIPITOR) 10 mg tablet Take 10 mg by mouth once daily. PROAIR HFA 90 mcg/actuation inhaler use 2 (TWO) puffs EVERY 4 HOURS NEEDED Hydrochlorothiazide 12.5 mg capsule Take 25 mg by mouth once daily. citalopram hydrobromide(CELEXA 20 MG TAB) Take one(1) tablet daily at bedtime. dicyclomine hcl(BENTYL 10 MG CAP) Take one(1) tablet daily as needed. eletriptan hydrobromide(RELPAX 40 MG TAB) Take one(1) tablet daily as needed. (Patient not taking: Take one(1) tablet daily as needed.) ALLERGIES: Adhesive Tape (Rosins), Cefuroxime Axetil, and Clindamycin Hcl PAST MEDICAL HISTORY: PAST MEDICAL HISTORY Diagnosis Date Anemia BCC (basal cell carcinoma) Depression DVT (deep vein thrombosis) in after childbirth 40+ years ago GERD (gastroesophageal reflux disease) Hiatal hernia HTN (hypertension) Hypercholesteremia IBS (irritable bowel syndrome) Monoclonal gammopathy of undetermined significance 01/25/2018 Uterine cancer (HCC) PAST SURGICAL HISTORY: PAST SURGICAL HISTORY Procedure Laterality Date HEMORRHOIDECTOMY HYSTERECTOMY LAPAROSCOPIC SPLENECTOMY 02/14/2018 NEUROPLASTY AND/TRANSPOSITION ULNAR NERVE ELBOW KIMMY HX 02/14/2018 POST-CATARACT LASER SURGERY Bilateral REPAIR PARAESOPHAGEAL HERNIA 02/14/2018 lap converted to open TOTAL KNEE REPLACEMENT Left 10/29/2019 VEIN SURGERY (SPECIFY LOCATION) HX REVIEW OF SYSTEMS: General: No weight loss, malaise or fevers. HEENT: Negative for frequent or significant headaches. No changes in hearing or vision, no nose bleeds or other nasal problems. Respiratory: Negative for cough, wheezing or shortness of breath. Cardio: Negative for chest pain, leg swelling or palpitations. GI: Negative for abdominal discomfort, blood in stools or black stools or change in bowel habits. : No history of dysuria, frequency or incontinence. Musculoskeletal: Negative for: joint pain or swelling, back pain and muscle pain. Skin: Negative for lesions, rash and itching. Hematology/Lymphology: Negative for prolonged bleeding, bruising easily or swollen nodes. Neuro: No history of headaches, syncope, paralysis, seizures or tremors. PHYSICAL EXAM: Vitals: BP 117/77 Pulse 78 Temp 36.2 ?C (97.1 ?F) (Temporal) Resp 16 Ht 161.3 cm (5' 3.5 ) Wt 82.5 kg (181 lb 12.8 oz) SpO2 100% BMI 31.70 kg/m? Exam limited to gross visualization where appropriate due to COVID-19. Gen.: This is an age-appropriate patient in no acute distress. Head: Appears atraumatic with no visible lesions. Eyes: Pupils equally round and reactive to light, extraocular muscles are intact. Neck: Supple. Mouth: Mucous membranes appeared to be moist. Respiratory: Appears to be respiring comfortably. Neurologic: Nonfocal to gross visualization. Alert and oriented ?3. Psychiatric: No evidence of inappropriate anxiety or depression. Skin: Visible areas of skin without rash, lesions, wounds or petechiae. LABOR (more content not included)... Normal [facility] Ferritin [facility]-ncon 2022 Ferritin [Mass/Vol] 108.0 ng/mL Normal 14.7-205.1 [facility] Comment on above: Order Comment: Speci men Type: BLOOD SPECIMEN Ordering Facility: [facility] Address: [address] [place] [address] Performed By: #### 2 885-2, 2276-4, 09004-5 #### [facility] CLIA [id number] [facility] IMMUNOFIXATION SCREEN, SERUM on 08-18-2022 INTERPRETATION (MPA) Atypical restricted bands are present in the IgG and lambda regions. Consistent with IgG lambda monoclonal gammopathy. Normal [facility] Comment on above: Order Comment: Speci men Type: BLOOD SPECIMEN Ordering Facility: [facility] Address: [address] [place] [address] Performed By: #### I FES #### [facility] CLIA [id number] [address] [place] [address] MPA RESULT M protein is present. Abnormal No M p rotein is identified. [facility] Comment on above: Order Comment: Speci men Type: BLOOD SPECIMEN Ordering Facility: [facility] Address: [address] [place] [address] Performed By: #### I FES #### [facility] CLIA [id number] [address] [place] [address] OF [facility] STAFF REVIEW (MPA) Reviewed by Zaira mackenzie MD Normal [facility] Comment on above: Order Comment: Speci men Type: BLOOD SPECIMEN Ordering Facility: [facility] Address: [address] [place] [address] Performed By: #### I FES #### [facility] CLIA [id number] [address] [place] [address] [place] IMMUNOGLOBULINS GAMon 2022 IgA [Mass/Vol] 335 mg/dL Normal 70-[address] [facility] Comment on above: Order Comment: Speci men Type: BLOOD SPECIMEN Ordering Facility: [facility] Address: [address] Performed By: #### S ERIMM #### [facility] CLIA [id number] [address] [place] [address] [place] IgG [Mass/Vol] 1369 mg/dL Normal 700-[address] [facility] Comment on above: Order Comment: Speci men Type: BLOOD SPECIMEN Ordering Facility: [facility] Address: [address] Performed By: #### S ERIMM #### [facility] CLIA [id number] [address] [place] [address] [place] IgM [Mass/Vol] 151 mg/dL Normal 40-[address] [facility] Comment on above: Order Comment: Speci men Type: BLOOD SPECIMEN Ordering Facility: [facility] Address: [address] Performed By: #### S ERIMM #### [facility] CLIA [id number] [address] [place] [address] [place] Iron and Iron binding capaci ty panelon 08-18-2022 Iron [Mass/Vol] 143 ug/dL Normal 41-[address] [facility] Comment on above: Order Comment: Speci men Type: BLOOD SPECIMEN Ordering Facility: [facility] Address: [address] Performed By: #### 2 885-2, 2276-4, 26777-5 #### [facility] CLIA [id number] [address] [place] [address] [place] Iron binding capacity [Mass/Vol] 336 ug/dL Normal 232 -[address] [facility] Comment on above: Order Comment: Speci men Type: BLOOD SPECIMEN Ordering Facility: [facility] Address: [address] Performed By: #### 2 885-2, 2276-4, 82872-3 #### [facility] CLIA [id number] [address] [place] [address] [place] Iron/TIBC [Molar ratio] 42.6 % Normal 15.0-57.0 C [facility] Comment on above: Order Comment: Speci men Type: BLOOD SPECIMEN Ordering Facility: [facility] Address: [address] [place] [address] Performed By: #### 2 885-2, 2276-4, 06720-4 #### [facility] CLIA [id number] [address] [place] [address] [place] KAPPA/GOMEZ,FREE,SERon 2022 Immunoglobulin light chains.kappa.free (S) [Mass/Vol] 32.1 mg/L High 3.3-19.[address] [facility] Comment on above: Order Comment: Speci men Type: BLOOD SPECIMEN Ordering Facility: [facility] Address: [address] [place] [address] Result Comment: Rare ly, increased serum free light chains levels may not be detected or accurately quantified due to prozone phenomenon or in high viscosity samples using this immunoturbidimetric assay. Correlation with other laboratory results and clinical findings is recommended. The [place] Free Light Chain was performed using the Binding Site Optilite immunoturbidimetric method. Result obtained with different assay methods or kits cannot be used interchangeably. Performed By: #### K LFRS #### [facility] CLIA [id number] [address] [place] [address] [place] Immunoglobulin light chains.kappa/Immunoglobulin light chains.lambda (S) [Mass ratio] 1.10 Normal 0.26-1.65 C [facility] Comment on above: Order Comment: Speci men Type: BLOOD SPECIMEN Ordering Facility: [facility] Address: [address] [place] [address] Performed By: #### K LFRS #### [facility] CLIA [id number] [address] [place] [address] [place] Immunoglobulin light chains.lambda.free [Mass/Vol] 29.2 mg/L High 5.7-26.3 [facility] Comment on above: Order Comment: Speci men Type: BLOOD SPECIMEN Ordering Facility: [facility] Address: [address] [place] [address] Result Comment: Rare ly, increased serum free light chains levels may not be detected or accurately quantified due to prozone phenomenon or in high viscosity samples using this immunoturbidimetric assay. Correlation with other laboratory results and clinical findings is recommended. The Lambda Free Light Chain was performed using the Binding Site Optilite immunoturbidimetric method. Result obtained with different assay methods or kits cannot be used interchangeably. Performed By: #### K LFRS #### [facility] CLIA [id number] [address] [place] [address] OF [place] PROTEIN ELECTROPHORESIS SERU M WITH DARÍO (P)on 08-18-2022 Albumin [Mass/Vol] 4.20 g/dL Normal 3.43-5.41 [facility] Comment on above: Order Comment: Speci men Type: BLOOD SPECIMEN Ordering Facility: [facility] Address: [address] [place] [address] Performed By: #### L [id number] #### [facility] CLIA [id number] [address] [place] [address] [place] Alpha 1 globulin Elph [Mass/Vol] 0.29 g/dL Normal 0.18-0.[address] [facility] Comment on above: Order Comment: Speci men Type: BLOOD SPECIMEN Ordering Facility: [facility] Address: [address] [place] [address] Performed By: #### L [id number] #### [facility] CLIA [id number] [address] [place] [address] [place] Alpha 2 globulin Elph [Mass/Vol] 0.60 g/dL Normal 0.42-0.[address] [facility] Comment on above: Order Comment: Speci men Type: BLOOD SPECIMEN Ordering Facility: [facility] Address: [address] [place] [address] Performed By: #### L [id number] #### [facility] CLIA [id number] [address] [place] [address] Beta globulin Elph [Mass/Vol] 1.01 g/dL Normal 0.61-[address] [facility] Comment on above: Order Comment: Speci men Type: BLOOD SPECIMEN Ordering Facility: [facility] Address: [address] [place] [address] Performed By: #### L [id number] #### [facility] CLIA [id number] [address] [place] [address] COMMENT (SERUM PROT ELECTRO) Monoclonal Protein analysis (immunofixation) is not indicated. Normal [facility] Comment on above: Order Comment: Speci men Type: BLOOD SPECIMEN Ordering Facility: [facility] Address: [address] [place] [address] Performed By: #### L [id number] #### [facility] CLIA [id number] [address] [place] [address] Gamma globulin Elph [Mass/Vol] 1.30 g/dL Normal 0.53- 1.[address] [facility] Comment on above: Order Comment: Speci men Type: BLOOD SPECIMEN Ordering Facility: [facility] Address: [address] [place] [address] Performed By: #### L [id number] #### [facility] CLIA [id number] [address] [place] [address] INTERPRETATION COMMENT FOR P ROTEIN ELECTROPHORESIS Normal [facility] Comment on above: Order Comment: Speci men Type: BLOOD SPECIMEN Ordering Facility: [facility] Address: [address] [place] [address] Result Comment: See separate immunofixation report for characterization of monoclonal gammopathy. M protein is present on the background of a polyclonal immunoglobulin population. Quantitation of the M protein may overestimate the amount of M protein present. Performed By: #### L [id number] #### [facility] CLIA [id number] [facility] [place] M-PROTEIN LOCATION Gamma Fraction [address] [facility] Comment on above: Order Comment: Speci men Type: BLOOD SPECIMEN Ordering Facility: [facility] Address: [address] [place] [address] Performed By: #### L [id number] #### [facility] CLIA [id number] [address] [place] [address] [place] Protein Fractions [Interp] An M protein is identified on protein electrophoresis. Abnormal No definitive M protein is identified on protein electrophoresis. [facility] Comment on above: Order Comment: Speci men Type: BLOOD SPECIMEN Ordering Facility: [facility] Address: [address] [place] [address] Performed By: #### L [id number] #### [facility] CLIA [id number] [address] [place] [address] [place] Protein.monoclonal Elph [Mass/Vol] 0.42 g/dL High < =0.[address] [facility] Comment on above: Order Comment: Speci men Type: BLOOD SPECIMEN Ordering Facility: [facility] Address: [address] [place] [address] Performed By: #### L [id number] #### [facility] CLIA [id number] [address] [place] [address] [place] SPE STAFF REVIEW Reviewed by Zaira Fishman MD Normal [facility] Comment on above: Order Comment: Speci men Type: BLOOD SPECIMEN Ordering Facility: [facility] Address: [address] [place] [address] Performed By: #### L [id number] #### [facility] CLIA [id number] [address] [place] [address] [place] Prot SerPl-mCncon 08-18-2022 Protein [Mass/Vol] 7.4 g/dL Normal 6.3-8.0 [facility] Comment on above: Order Comment: Speci men Type: BLOOD SPECIMEN Ordering Facility: [facility] Address: [address] [place] [id number] Performed By: #### 2 885-2, 2276-4, 88661-4 #### [facility] CLIA [id number] [address] [facility] [address] [address] [facility] Coding Summary.on 05-26-2022 Coding Summary. [id number] [file] [id number] (more content not included)... Normal [facility] MA Mamm Screen w/CAD if perf and 3D Bilon 05-19-2022 MA Mamm Screen w/CAD if perf and 3D [place] Exam Date/Time: 05/18/2022 15:20 EDT Reason for Exam: Z12.31 Report IMPRESSION: BIRADS 1 NEGATIVE, NORMAL INTERVAL FOLLOW-UP.12 MONTH RECALL. CLINICAL HISTORY: Z12.31. COMPARISON: 04/21/2021. COMMENT: Routine views and tomosynthesis views of both breasts were obtained. There are scattered areas of fibroglandular density. No dominant breast mass nor neoplastic calcifications are identified in either breast. There has been no significant change from the previous exam. The examination was reviewed with Computer Aided Detection. Breast Density: No Mammography is very important to your health. The current [employer] and National Comprehensive Cancer Network guidelines recommends annual mammography beginning at age 40. This facility utilizes a reminder system to ensure all patients receive reminder notifications at the appropriate time based on the recommendations of this exam. Board Certified Radiologists. Accredited by the ACR and FDA. Ordering Provider: REFERRAL, SELF FINAL REPORT Dictated: 05/19/2022 11:48 am Tracie M.D., Gavin L Signed (Electronic Signature): 05/19/2022 11:48 am Signed by: Gavin Hodges M.D. Transcribed by: OLESYA Technologist: BIANKA Assessment: BI-RADS Category 1-Negative Recommendation: Normal interval follow-up Normal [facility] Consent for Treatmenton 04-21 Consent for Treatment [id number] Normal [facility] CNPNon 08-26-2021 CNPN Telephone (HEMASA) BRENDA MCCLAIN ([id number]) 1950 F Date Time Provider Department 08/26/21 TELLO MAK During your visit today, we recorded the following information about you: Tello Mak RN 08/26/2021 3:30 PM Signed ----- Message from Sanjay Adkins MD sent at 08/24/2021 4:47 PM EDT ----- Please inform the patient that her protein analysis is stable. We will continue monitoring as planned, and see her back as scheduled. Thanks, ALFONSO Mak RN 08/26/2021 3:32 PM Signed Call placed to pt. No answer. Left message informing pt of Dr Adkins's message and to return call if any questions/concerns. Tello Mak RN Allergies As of Date: 08/26/2021 Noted Allergy Reaction ADHESIVE TAPE (ROSINS) 03/21/2017 2 - Rash CEFUROXIME AXETIL 03/21/2017 8 - GI Upset CLINDAMYCIN HCL 03/21/2017 5 - Intolerance Date Reviewed: 08/19/2021 Reviewed by: Deisy Andujar MA - Fully Assessed Reason for Visit: Results [95] Prescriptions as of 08/26/2021 - omeprazole (PRILOSEC) 40 mg capsule Take 40 mg by mouth once daily. - OXcarbazepine (TRILEPTAL) 300 mg tablet Take 300 mg by mouth twice daily. - meloxicam (MOBIC) 15 mg tablet Take 15 mg by mouth. - losartan (COZAAR) 100 mg tablet - polyethylene glycol 3350 (MIRALAX, GLYCOLAX) 17 gram packet Take 17 g by mouth as needed. - docusate sodium (COLACE) 100 mg capsule Take 100 mg by mouth as needed. - diphenhydrAMINE (BENADRYL) 25 mg capsule Take 25 mg by mouth every 6 hours as needed. - loratadine 10 mg cap Take by mouth as needed. - atorvastatin (LIPITOR) 10 mg tablet Take 10 mg by mouth once daily. - PROAIR HFA 90 mcg/actuation inhaler use 2 (TWO) puffs EVERY 4 HOURS NEEDED - Hydrochlorothiazide 12.5 mg capsule Take 25 mg by mouth once daily. - citalopram hydrobromide(CELEXA 20 MG TAB) Take one(1) tablet daily at bedtime. - dicyclomine hcl(BENTYL 10 MG CAP) Take one(1) tablet daily as needed. - eletriptan hydrobromide(RELPAX 40 MG TAB) Take one(1) tablet daily as needed. 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 Complete Blood Count with Au to Diffon 04-13-2021 Basophils (Bld) [#/Vol] 0.06 10*3/uL Normal 0.00-0.20 [facility] Comment on above: Performed By: #### C MP, LIPD, CBCAD #### [facility] [address] [place], [place] [id number] Basophils/100 WBC (Bld) 0.8 % Normal [facility] Comment on above: Performed By: #### C MP, LIPD, CBCAD #### [facility] [address] [place], [place] [id number] Eosinophils (Bld) [#/Vol] 0.52 10*3/uL High 0.02-0.5 0 [facility] Comment on above: Performed By: #### C MP, LIPD, CBCAD #### [facility] [address] [place], [place] [id number] Eosinophils/100 WBC (Bld) 7.3 % Normal [facility] Comment on above: Performed By: #### C MP, LIPD, CBCAD #### [facility] [address] [place], [place] [id number] Erythrocyte distribution wid th (RBC) [Ratio] 13.1 % Normal 11.0-15.0 [facility] Specialist Comment on above: Performed By: #### C MP, LIPD, CBCAD #### [facility] [address] [place], [place] [id number] Hematocrit (Bld) [Volume fraction] 43.9 % Normal 35.0-47.0 [facility] dic[facility] Specialist Comment on above: Performed By: #### C MP, LIPD, CBCAD #### [facility] [address] [place], [place] [id number] Hemoglobin (Bld) [Mass/Vol] 14.5 g/dL Normal 11.6-15. 5 [facility] Comment on above: Performed By: #### C MP, LIPD, CBCAD #### [facility] [address] [place], [place] [id number] Lymphocytes (Bld) [#/Vol] 2.4 10*3/uL Normal 0.9-3.9 [facility] Comment on above: Performed By: #### C MP, LIPD, CBCAD #### [facility] [address] [place], [place] [id number] Lymphocytes/100 WBC (Bld) 34.2 % Normal [facility] Comment on above: Performed By: #### C MP, LIPD, CBCAD #### [facility] [address] [place], [place] [id number] MCH (RBC) [Entitic mass] 31.6 pg Normal 27.0-33.0 [facility] Comment on above: Performed By: #### C SARAH BETH HOLGUIND, CBCAD #### [facility] [address] [place], [place] [id number] MCHC (RBC) [Mass/Vol] 33.0 g/dL Normal 32.0-36.0 [facility] Comment on above: Performed By: #### C MP LIPD, CBCAD #### [facility] [address] [place], [place] [id number] MCV (RBC) [Entitic vol] 96 fL Normal 80-100 N [facility]ist Comment on above: Performed By: #### C CHELSIE LIPD, CBCAD #### [facility] [address] [place], [place] [id number] Monocytes (Bld) [#/Vol] 0.9 10*3/uL Normal 0.2-0.9 [facility] Comment on above: Performed By: #### C MP LIPD, CBCAD #### [facility] [address] [place], [place] [id number] Monocytes/100 WBC (Bld) 13.0 % Normal [facility] Comment on above: Performed By: #### C CHELSIE LIPD, CBCAD #### [facility] [address] [place], [place] [id number] Neutrophils (Bld) [#/Vol] 3.2 10*3/uL Normal 1.5-7.8 [facility] Comment on above: Performed By: #### C MP LIPD, CBCAD #### [facility] [address] [place], [place] [id number] Neutrophils/100 WBC (Bld) 44.3 % Normal [facility] Comment on above: Performed By: #### C MP LIPD, CBCAD #### [facility] [address] [place], [place] [id number] Platelet mean volume (Bld) [Entitic vol] 10.30 fL Normal 7.50-12.50 [facility] Comment on above: Performed By: #### C MP LIPD, CBCAD #### [facility] [address] [place], [place] [id number] Platelets (Bld) [#/Vol] 453 10*3/uL High 140-400 [facility] Comment on above: Performed By: #### C MP, LIPD, CBCAD #### [facility] [address] [place], [place] [id number] RBC (Bld) [#/Vol] 4.59 10*6/uL Normal 3.90-5.20 [facility] Comment on above: Performed By: #### C MP, LIPD, CBCAD #### [facility] [address] [place], [place] [id number] RDW-SD 45.7 fL Normal 37.0-50.0 [facility] Comment on above: Performed By: #### C MP, LIPD, CBCAD #### [facility] [address] [place], [place] [id number] WBC (Bld) [#/Vol] 7.1 10*3/uL Normal 3.8-11.0 [facility] Comment on above: Performed By: #### C MP, LIPD, CBCAD #### [facility] [address] [place], [place] [id number] Comprehensive Metabolic Pane [facility] 04-13-2021 Albumin [Mass/Vol] 4.5 g/dL Normal 3.6-5.1 [facility] Specialist Comment on above: Performed By: #### C MP, LIPD, CBCAD #### [facility] [address] [place], [place] [id number] Albumin/Globulin [Mass ratio] 1.6 {ratio} Normal 1.0-2 .5 [facility] Comment on above: Performed By: #### C MP, LIPD, CBCAD #### [facility] [address] [place], [place] [id number] ALP [Catalytic activity/Vol] 125 U/L High 35-119 [facility] Comment on above: Performed By: #### C MP, LIPD, CBCAD #### [facility] [address] [place], [place] [id number] ALT [Catalytic activity/Vol] 12 U/L Normal 6-33 [facility] Comment on above: Result Comment: 01/20 Female reference range changed. Performed By: #### C SARAH BETH HOLGUIND, CBCAD #### [facility] [address] [place], [place] [id number] Anion gap [Moles/Vol] 20 mmol/L Normal 12-20 [facility] Comment on above: Result Comment: Effe ctive 02/25/2019 reference range changed. Performed By: #### C MP, LIPD, CBCAD #### [facility] [address] [place], [place] [id number] AST [Catalytic activity/Vol] 20 U/L Normal 9-34 [facility] Comment on above: Performed By: #### C CHELSIE, LIPD, CBCAD #### [facility] [address] [place], [place] [id number] Bilirubin [Mass/Vol] 0.55 mg/dL Normal 0.30-1.20 [facility] Comment on above: Performed By: #### C CHELSIE LIPD, CBCAD #### [facility] [address] [place], [place] [id number] BUN/CREA 22 Ratio Normal 6-22 [facility] Comment on above: Performed By: #### C SARAH BETH HOLGUIND, CBCAD #### [facility] [address] [place], [place] [id number] Calcium [Mass/Vol] 10.1 mg/dL Normal 8.6-10.2 [facility] Comment on above: Performed By: #### C MP, LIPD, CBCAD #### [facility] [address] [place], [place] [id number] Chloride [Moles/Vol] 104 mmol/L Normal 98-107 [facility] Comment on above: Performed By: #### C MP, LIPD, CBCAD #### [facility] [address] [place], [place] [id number] CO2 [Moles/Vol] 24 mmol/L Normal 20-31 [facility] Comment on above: Performed By: #### C CHELSIE LIPD, CBCAD #### [facility] [address] [place], [place] [id number] Creatinine [Mass/Vol] 0.9 mg/dL Normal 0.6-1.4 [facility] [employer] [facility] [facility] Comment on above: Performed By: #### C SARAH BETH HOLGUIND, CBCAD #### [facility] [address] [place], [place] [id number] eGFRAA 71 mL/min/1.73m2 Normal >60 [facility] Comment on above: Performed By: #### C CHELSIE LIPD, CBCAD #### [facility] [address] [place], [place] [id number] eGFRNAA 58 mL/min/1.73m2 Low >60 [facility] [employer] [facility] Comment on above: Performed By: #### C SARAH BETH HOLGUIND, CBCAD #### [facility] [address] [place], [place] [id number] Globulin (S) [Mass/Vol] 2.8 g/dL Normal 1.9-3.7 [facility] [place] [facility] [facility] Comment on above: Performed By: #### C CHELSIE LIPD, CBCAD #### [facility] [address] [place], [place] [id number] Glucose [Mass/Vol] 110 mg/dL High 65-99 Andrei dietz [place] [employer] Comment on above: Result Comment: For FASTING Glucose --- ADA reference ranges: Normal 65-99 mg/dl Prediabetes 100-125 Diabetes >/= 126 Performed By: #### C CHELSIE, LIPD, CBCAD #### [facility] [address] [place], [place] [id number] Potassium [Moles/Vol] 4.3 mmol/L Normal 3.5-5.5 [facility] [employer] Comment on above: Performed By: #### C CHELSIE, LIPD, CBCAD #### [facility] [address] [place], [place] [id number] Protein [Mass/Vol] 7.3 g/dL Normal 6.1-8.1 Andrei dietz [place] [employer] Comment on above: Performed By: #### C CHELSIE, LIPD, CBCAD #### [facility] [address] [place], [place] [id number] Sodium [Moles/Vol] 143 mmol/L Normal 135-146 [place] [employer] Comment on above: Performed By: #### C MP, LIPD, CBCAD #### [facility] [address] [place], [place] [id number] Urea nitrogen [Mass/Vol] 20 mg/dL Normal 7-25 [facility] Comment on above: Performed By: #### C MP, LIPD, CBCAD #### [facility] [address] [place], [place] [id number] Lipid Panelon 04-13-2021 Cholesterol [Mass/Vol] 196 mg/dL Normal 125-200 No rtOhio [facility] HospitalC[facility] Certified Network [facility] Comment on above: Result Comment: Low risk < 200mg/dL Borderline risk 201-239 mg/dl High risk > or equal to 240 Performed By: #### C CHELSIE, LIPD, CBCAD #### [facility] [address] [place], [place] [id number] Cholesterol in HDL [Mass/Vol] 46 mg/dL Normal >40 [facility]ist Comment on above: Result Comment: High Cardiovascular Risk HDL <40 mg/dL Low Cardiovascular Risk HDL > or equal to 60 mg/dl Performed By: #### C CHELSIE, LIPD, CBCAD #### [facility] [address] [place], [place] [id number] Cholesterol in LDL [Mass/Vol] 98 mg/dL Normal [facility] Comment on above: Result Comment: LDL ATP III CLASSIFICATION LDL less than 100 mg/dl Optimal LDL 100-129 mg/dl Near or above optimal LDL 130-159 Borderline high LDL 160-189 High LDL greater than 189 mg/dl Very High Performed By: #### C MP, LIPD, CBCAD #### [facility] [address] [place], [place] [id number] Cholesterol in VLDL [Mass/Vol] 52 mg/dL Normal [facility] Comment on above: Performed By: #### C CHELSIE, LIPD, CBCAD #### [facility] [address] [place], [place] [phone] Cholesterol.total/Cholestero l in HDL [Mass ratio] 4 {ratio} Normal [facility]ist Comment on above: Performed By: #### C MP, LIPD, CBCAD #### [facility] [address] [place], [place] [id number] Triglyceride [Mass/Vol] 262 mg/dL High 30-150 N michaelern [place] [employer] Comment on above: Result Comment: TRIG ATPIII CLASSIFICATIONS TRIG less than 150 mg/dl Normal TRIG 150-199 mg/dl Borderline High TRIG 200-500 mg/dl High TRIG greather than 500 mg/dl Very High Performed By: #### C MP, LIPD, CBCAD #### [facility] [address] [place], [place] [id number] Basic Metabolic Panlon 02-17 Anion gap 3 molar conc 9 mmol/L Normal 9-18 [facility] Comment on above: Performed By: #### C BCDIF, BMP, MG1, PHOS, PT ####[place] [phone] Calcium mass conc 8.5 mg/dL Normal 8.5-10.5 [facility] Comment on above: Performed By: #### C BCDIF, BMP, MG1, PHOS, PT ####[place] [phone] Chloride molar conc 109 mmol/L Normal 98-110 [facility] Comment on above: Performed By: #### C BCDIF, BMP, MG1, PHOS, PT ####[place] [phone] CO2 molar conc 25 mmol/L Normal 23-32 [facility] Comment on above: Performed By: #### C BCDIF, BMP, MG1, PHOS, PT ####[place] [phone] Creatinine mass conc 0.62 mg/dL Low 0.70-1.40 [facility] Comment on above: Performed By: #### C BCDIF, BMP, MG1, PHOS, PT ####[place] [phone] eGFR- Amer. >60 Normal >60 [facility] Comment on above: Performed By: #### C BCDIF, BMP, MG1, PHOS, PT ####[place] [phone] GFR/1.73 sq M predicted leonela g non-blacks MDRD vol rate/area (S/P/Bld) mL/min/{1.73_m2} Normal >60 [facility] Comment on above: Performed By: #### C BCDIF, BMP, MG1, PHOS, PT ####[place] [phone] Glucose mass conc 109 mg/dL High 65-100 [facility] Comment on above: Performed By: #### C BCDIF, BMP, MG1, PHOS, PT ####[place] [phone] Potassium molar conc 3.5 mmol/L Normal 3.5-5.0 [facility] Comment on above: Performed By: #### C BCDIF, BMP, MG1, PHOS, PT ####[place] [phone] Sodium molar conc 143 mmol/L Normal 132-148 [facility] Comment on above: Performed By: #### C BCDIF, BMP, MG1, PHOS, PT ####[place] [phone] Urea nitrogen mass conc 6 mg/dL Low 8-25 [facility] Comment on above: Performed By: #### C BCDIF, BMP, MG1, PHOS, PT ####[place] [phone] CBC and Differentialon 02-17 Abs Baso <0.03 Normal <0.11 [facility] Comment on above: Performed By: #### C BCDIF, BMP, MG1, PHOS, PT ####[place] [phone] Abs [place] 1.46 k/uL High <0.87 [facility] Comment on above: Performed By: #### C BCDIF, BMP, MG1, PHOS, PT ####[place] [phone] Abs Neut 7.50 k/uL Normal 1.45-7.50 [facility] Comment on above: Performed By: #### C BCDIF, BMP, MG1, PHOS, PT ####[place] [phone] Basophils/100 WBC Auto (Bld) 0.2 % Normal [facility] Comment on above: Performed By: #### C BCDIF, BMP, MG1, PHOS, PT ####[place] [phone] DTYPE Auto Diff Normal [facility] Comment on above: Performed By: #### C BCDIF, BMP, MG1, PHOS, PT ####[address] Eosinophils Auto #/vol (Bld) 0.29 10*3/uL Normal <0.46 [facility] Comment on above: Performed By: #### C BCDIF, BMP, MG1, PHOS, PT ####[address] Eosinophils/100 WBC Auto (Bld) 2.8 % Normal [facility] Comment on above: Performed By: #### C BCDIF, BMP, MG1, PHOS, PT ####[place] [phone] Erythrocyte distribution wid th Auto Ratio (RBC) 16.5 % High 11.5-15.0 [facility] Comment on above: Performed By: #### C BCDIF, BMP, MG1, PHOS, PT ####[place] [phone] Hematocrit Auto Volume Fraction (Bld) 30.2 % Low 36.0-46.0 [facility] Comment on above: Performed By: #### C BCDIF, BMP, MG1, PHOS, PT ####[place] [phone] Hemoglobin mass conc (Bld) 9.5 g/dL Low 11.5-15.5 [facility] Comment on above: Performed By: #### C BCDIF, BMP, MG1, PHOS, PT ####[place] [address] Lymphocytes Auto #/vol (Bld) 0.95 10*3/uL Low 1.00- 4.00 [facility] Comment on above: Performed By: #### C BCDIF, BMP, MG1, PHOS, PT ####[place] [phone] Lymphocytes/100 WBC Auto (Bld) 9.3 % Normal [facility] Comment on above: Performed By: #### C BCDIF, BMP, MG1, PHOS, PT ####[place] [phone] MCH Auto Entitic mass (RBC) 28.7 pG Normal 26.0-34. 0 [facility] Comment on above: Performed By: #### C BCDIF, BMP, MG1, PHOS, PT ####[place] [address] MCHC Auto mass conc (RBC) 31.5 g/dL Normal 30.5-36.0 [facility] Comment on above: Performed By: #### C BCDIF, BMP, MG1, PHOS, PT ####[place] [phone] MCV Auto Entitic volume (RBC) 91.2 fL Normal 80.0-1 00.0 [facility] Comment on above: Performed By: #### C BCDIF, BMP, MG1, PHOS, PT ####[place] [phone] Monocytes/100 WBC Auto (Bld) 14.3 % Normal [facility] Comment on above: Performed By: #### C BCDIF, BMP, MG1, PHOS, PT ####[place] [phone] Neutrophils/100 WBC Auto (Bld) 73.4 % Normal [facility] Comment on above: Performed By: #### C BCDIF, BMP, MG1, PHOS, PT ####[place] [phone] Platelet mean volume Auto En titic volume (Bld) 9.6 fL Normal 9.0-12.7 [facility] Comment on above: Performed By: #### C BCDIF, BMP, MG1, PHOS, PT ####[place] [phone] Platelets Auto #/vol (Bld) 248 10*3/uL Normal 150-400 [facility] Comment on above: Performed By: #### C BCDIF, BMP, MG1, PHOS, PT ####[place] [phone] RBC Auto #/vol (Bld) 3.31 10*6/uL Low 3.90-5.20 [facility] Comment on above: Performed By: #### C BCDIF, BMP, MG1, PHOS, PT ####[place] [phone] WBC Auto #/vol (Bld) 10.22 10*3/uL Normal 3.70-11.00 [facility] Comment on above: Performed By: #### C BCDIF, BMP, MG1, PHOS, PT ####[place] [phone] Magnesiumon 02-17-2018 Magnesium mass conc 2.0 mg/dL Normal 1.7-2.6 [facility] Comment on above: Performed By: #### C BCDIF, BMP, MG1, PHOS, PT ####[place] [phone] NURSING PROGon 02-17-2018 Protein mass conc HNO ID: [id number]: Heidy Mann) Favian Burrellice: (none)Author Type: Registered NurseType: Nursing Progress NoteFiled: 02/17/2018 1:46 PMNote Text: Nursing Progress NotePatient Name: Brenda McclainMRN: [id number] Location: /KC-[id number]-95 walked with patient on RA satting 94%.0929 SROC paged [id number] Brenda Mcclain: phos 1.4 this AM does she needanything? Thanks, Heidy [id number] receivedAguilar Juarez CM [facility] is set up.This note was completed by: Heidy Boyle RN [facility] Protein mass conc HNO ID: [id number]: Franchesca AlmarazRn) TRUDY Beebeervice: NursingAuthor Type: Registered NurseType: Nursing Progress NoteFiled: 02/17/2018 12:33 AMNote Text: Nursing Progress NotePatient Name: Brenda McclainN: [id number] Location: /ON-[id number]-52 D aily Note:AANDO times 3. Patient has pain in abdomen states it feels like apressure and like gas pain. Patient has pain 4/10 given prn painmedications per MAR. Patients incision and lap sites have no drainage andare just slightly pink. Gopi Pedro drain site's dressing is clean dryand intact. Patient is wearing abd binder but has asked to have it offwhile they sleep for comfort. RN stressed about being gentle withmovements and using the binder when getting out of bed. Pt states thatthey were SOB on exertion at home and that they have had bronchitisseveral times this year. Pt Denies N/V and has not passed gas yet or had aBM. Patient has no further needs and is safe with call light in reach.This note was completed by: Franchesca Beebe RN Normal [facility] Phosphoruson 02-17-2018 Phosphate mass conc 1.4 mg/dL Low 2.5-4.5 [facility] Comment on above: Performed By: #### C BCDIF, BMP, MG1, PHOS, PT ####[place] [id number] [place], [place] [phone] Protimeon 02-17-2018 INR Coag RelTime (Bld) 1.0 {INR} Normal 0.9-1.3 [facility] Comment on above: Result Comment: Danni min K Antagonist (VKA) Therapeutic Range: INR 2 to 3 (Target INR of 2.5)Note: For patients treated with VKA drugs, such as warfarin, the [place] [employer] 2012 Guideline recommends a therapeutic INR range of 2 to 3 (target INR of 2.5). This recommendation includes high-risk patients with antiphospholipid syndrome with previous arterial or venous thromboembolism, current-generation mechanical or bioprosthetic aortic heart valve replacement.Note: Patients with mechanical aortic valve replacement and additional risk factors for thromboembolic events (atrial fibrillation, previous thromboembolism, LV dysfunction, hypercoagulable conditions) or an older generation mechanical AVR (i.e., ball in-Cage) or any mechanical MVR should have a INR therapeutic range of 2.5 to 3.5 (target INR of 3).Nancy GH, et al. Chest 2012, 141:7S-47SNishimiam RA, et al. [facility] 2017, 70: 252-289 Performed By: #### C BCDIF, BMP, MG1, PHOS, PT ####[place] [address] [place], [place] [phone] PT Sec 10.6 sec Normal 9.7-13.0 [facility] Comment on above: Performed By: #### C BCDIF, BMP, MG1, PHOS, PT ####[place] [address]201 [place], [place] [phone] Amylase,Body Fluidon 02-16-2 018 Amylase,Body Fluid 142 U/L Critically abnormal See Comm ent [facility] Comment on above: Result Comment: (NOT E)PLEURAL FLUIDS:Amylase measurement in pleural fluid is considered a useful test fordetecting amylase-rich pleural effusions, which may be caused byexudative conditions associated with pancreatitis, esophagealrupture, malignancy, pneumonia, and liver cirrhosis. A ratio ofpleural fluid amylase to a concurrent serum amylase >1 is defined asan amylase-rich pleural effusion.PERITONEAL FLUIDS AND DRAINAGE FLUIDS:Pancreatic damage causes extravasation of amylase from the exocrinecells into the peritoneal space. In cases of pancreatitis, fluidamylase should be at least several-fold times higher in fluid ofpancreatic origin compared to concurrent serum amylase values.PANCREATIC CYST FLUID:Pancreatic cyst fluid amylase may aid in characterizing tumors andshould be interpreted along with other clinical and laboratoryinformation.References:1. Emmanuel GUEVARA, Eliza Rashid. Body fluid analysis: clinicalutility and applicability of published studies to guideinterpretation of todays laboratory testing in serous fluids. CritRev Clin Lab Sci, 2013;50(4-5):107-124.2. CLSI. Analysis of Body Fluids in Clinical Chemistry; ApprovedGuideline. CLSI document C49-A. JOSEFINA Giordano: Clinical LaboratoryStandards [place]; 2007.3. Donovan VIGIL, Neel RC, Renzo DJ. Use of cyst fluid CEA,CA19-9, and amylase for evaluation of pancreatic lesions. ClinicalBiochemistry. 2009;42:3357-2292.This test was developed and its performance characteristicsdetermined by [facility]'s Angelito Vero [facility]Labor[facility] [place] (RTPLMI).It has not been cleared or approved by the FDA. [facility] is regulatedunder [place] as qualified to perform high-complexity testing.This test is used for clinical purposes. It should not be regarded asinvestigational or for research. Performed By: #### F AMYL ####[facility] [place], [place] [phone] [phone] Fluid Type Other Normal [facility] Comment on above: Result Comment: ACE D RAIN ABDOMEN Performed By: #### F AMYL ####[facility] [place], [place] [phone] Medical [facility] [place] [place], [place] [phone] CASE MANAGEMon 02-16-2018 CASE MANAGEM HNO ID: [id number] thor: TRUDY Becerra Rnervice: Case ManagementAuthor Type: Registered NurseType: Care Mgt Progress NoteFiled: 02/16/2018 1:55 PMNote Text:CARE MANAGEMENT DISCHARGE NOTESERVICE DATE: 02/16/2018SERVICE TIME: 1:55 PM LOS: 2 daysIM letter given to patient on 02.16.2018.SIGNATURE: Luisito Bill RN PATIENT NAME: Brenda BergmanTE: February 16, 2018 : 1:55 PM PAGER/CONTACT #: [phone] [facility] CASE MANAGEM HNO ID: [id number] thor: TRUDY Becerra Rnervice: Case ManagementAuthor Type: Registered NurseType: Care Mgt Progress NoteFiled: 02/16/2018 1:44 PMNote Text:CARE MANAGEMENT DISCHARGE NOTESERVICE DATE: 02/16/2018SERVICE TIME:1:43 PM LOS: 2 days d/c plan is faye mehta [facility] # [phone] set to see pt [id number] pending d/cSIGNATURE: Luisito Bill RN PATIENT NAME: Brenda BergmanTE: February 16, 2018 : 1:43 PM PAGER/CONTACT #: [phone] [facility] CASE MGT INIT ASSESon 2017 CASE MGT INIT ASSES HNO ID: [id number]: TRUDY Becerra Rnervice: Case ManagementAuthor Type: Registered NurseType: Care Mgt Initial AssessmentFiled: 02/16/2018 9:01 AMNote Text:CARE MANAGEMENT: ASSESSMENT AND DISCHARGE PLANSERVICE DATE: 02/16/2018SERVICE TIME: 8:58 AMPRIMARY CARE PHYSICIAN:Pam Villalobos, [facility] HOSPITALhone: [phone] 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 How often do you need to have someone help you when you readinstructions, pamphlets, or other written material from your doctor orpharmacy? Never - 12. How confident are you filling out medical forms by yourself? Quite abit - 2If Patient scores > 3 on either question, the following interventions wereput into place:Patient did not score > 3FUNCTIONAL AND COGNITIVE/BEHAVIORALPRIOR TO ADMISSION:Baseline Mental Status: Alert AND Oriented, Person, Place , Time andSituationFunctional Status: IndependentDoes Patient Currently Receive Any Community Services or Home Care? NoneEquipment Prior to Admission: Hand Held ShowerTub bench/chairHas the Patient Been in a Residential Facility in the Past 30 days? NoSOCIAL:Living Arrangement: HomeLives With: SpouseFinancial Resources: RetiredPrimary Contact: Extended Emergency Contact InformationPrimary Emergency Contact: Danilo McclainAddress: [address] [place] [address] [facility] Axiuet Zscvdhax: SpouseSecondary Emergency Contact: Lea Montalvo Ypxbge Qrdggokn: DaughterSupportive: YesOther Important Patient Contacts: spouse cell [phone] Assessment:Caregiver is ready, willing and able to meet the patient's needs asrecommended by the inter-professional team? YesPatient's transition needs and plan for meeting these needs: pt requiresassistance w adls, therapy recommending HHC and pt agreeable andrequesting [facility]- referral sent and working on socDoes the patient have an acute stroke diagnosis, or has the patient had astroke during this admission? NoMedication Adherence:I am convinced of the importance of my prescription medication: Agreecompletely - 0I worry that my prescription medication will do more harm than good to meDisagree completely - 0I feel financially burdened by my pzt-af-yrnwqq expenses for myprescription medication: Disagree mostly -0Patient is categorized as low risk < 2Are you interested in bedside delivery of your medications? NoFood Concerns:In the Last Month, Have You had Trouble Getting Food? No trouble gettingfoodDuring the Last Month, Have You Worried Whether Your Food Would Run OutBefore You Had Enough Money to Buy More? NoIs the Patient Psychosocially Complex? NoASSESSMENT AND PLAN:Medical Needs: NonePsychosocial Needs: NoneFREEDOM OF CHOICE EXPLAINED:Yes 02.16.2018Financial Disclosure ProvidedThe patient and/or family has been given the Provider List: YesProvider List: Home CarePreference: 1st choice FMCPOTENTIAL TRANSITION PLANSHome OT/PTPOD 1 Laparoscopic converted to open paraesophageal hernia repair, IPTA,lives w spouse plan dc over weekend C referral started working on SOC Yolanda ROMO for p2xSTBTJHABO: Luisito Bill RN PATIENT NAME: Brenda McclainDATE: February 16, 2018 : 8:58 AM PAGER/CONTACT #: [phone] [facility] NURSING PROGon 02-16-2018 Protein mass conc HNO ID: [id number]: Johanne (Rn) Co uncil, RNService: NursingAuthor Type: Registered NurseType: Nursing Progress NoteFiled: 02/16/2018 5:53 PMNote Text: Nursing Progress NotePatient Name: Brenda McclainMRN: [id number] [facility]-[id number]-34 Pt A+Ox3, pleasant. Abdomen soft AND tender, Midline incision AND lap sitesOTA, no drainage. Pt denies flatus, -BM. Voiding freely. Toleratingfull liquid diet, denies N+V. Pain managed w/ routine tylenol AND PRNoxycodone. Oxygen saturation 93% on 1L/NC, pt SOB at times, lung soundsdiminished. Pt states she had been feeling SOB at home for a while priorto admission. Abdominal binder adjusted. Per MD, anticipated d/c hometomorrow w/ HHC. Family at bedside. Will continue POC.This note was completed by: Johanne Sarkar RN [facility] PROGRESSon 02-16-2018 Protein mass conc HNO ID: [id number]: Ant (Res) (Hist) SiderisService: General SurgeryAuthor Type: ResidentType: Progress NotesFiled: 02/17/2018 10:06 AMNote Text: -----Attestat ion signed by Alfie Martinez at 02/17/2018 11:22 AMPatient doing well. Progressing without any postop concerns. DC planning.Splenectomy vaccines to be given likely before DC home. -----General Surgery Progress NoteName: Brenda McclainN: [id number] update:Overall, patient is doing well. No significant overnight issues noted.Abdominal pain well controlled. Passing flatus. Tolerating FLD.On 1 L NC this AMObjectivePhysical exam: BP 140/74 Pulse 92 Temp 36.8 ?C (98.3 ?F) (Oral) Resp 16 Ht 157.5 cm (5' 2 ) Wt 80.9 kg (178 lb 5.6 oz) SpO2 92% BMI 32.62 kg/m?General: Patient is resting comfortably on exam, not in any distress andis pleasant and cooperative.Abdomen: soft, non tender, non distended. Incision: Clean, dry, intact. Noerythema noted.Chest: Non-labored, symmetrical respirations.Date 02/15/18 0700 - 02/16/18 0659 02/16/18 0700 - 02/17/18 0659Shift 3899-4611 2573-3131 4637-6979 24 Hour Total 3034-0442 2620-92806991-6866 24 Hour TotalINTAKE PO 0 650 650 PO 0 650 650 IV 1099 1099 NS 0.9% 1099 1099 Irrigants 80 80 Irrigant/Flush Amount In ([REMOVED] GI Feed/Drain 02/14/18 2030Assessment Nasogastric Left Naris 16 Fr 02/15/18 1300) 80 80 Shift Total 80 1749 1829OUTPUT Urine 175 150 325 Void (ml) 0 150 150 Urine Not Saved. 3 x 2 x 5 x Output ([REMOVED] Indwelling Urinary Catheter 02/14/18 1448 Foley16 Fr 02/15/18 1010) 175 175 Tubes 20 0 20 Drain/Tube Output (Drain/Tube 02/14/18 1914 Hector Left Abdomen Drain#1) 20 0 20 Shift Total 195 0 150 345Weight (kg) 80.9 80.9 80.9 80.9 80.9 80.9 80.9 80.9Medications:Current hospital medications:acetaminophen 1,000 mg CUP (TYLENOL) 1,000 mg ORAL/FEEDING TUBE q 6 Halbuterol 2.5 mg /3 mL (0.083 %) 2.5 mg (PROVENTIL) 3 mL INHALATION q 20MIN PRNcitalopram 20 mg tab(s) (CeleXA) 20 mg ORAL AT BEDTIMEcyclobenzaprine 10 mg tab(s) (FLEXERIL) 10 mg ORAL BID PRNdextrose 40 % 15 g 15 g ORAL PRNdextrose 50% in water 25 mL syringe 12.5 g INTRAVENOUS PRNdocusate 100 mg CUP (COLACE) 100 mg ORAL/FEEDING TUBE BIDglucagon 1 mg injection (GLUCAGEN) 1 mg INTRAMUSCULAR PRNheparin 5,000 Units injection 5,000 Units SUBCUTANEOUS q 12 HHYDROmorphone 0.2 mg injection (DILAUDID) 0.2 mg INTRAVENOUS q 2 H PRNinsulin lispro injection (rapid acting) (HumaLOG) SUBCUTANEOUS q 6 Hlabetalol 5 mg injection syringe (NORMODYNE) 5 mg INTRAVENOUS q 4 H PRNNaCl 0.9% iv infusion 5- 125 mL/hr INTRAVENOUS CONTINUOUSondansetron (PF) 4 mg injection (ZOFRAN) 4 mg INTRAVENOUS q 6 H PRNondansetron 4 mg tab(s) (ZOFRAN) 4 mg ORAL q 6 H PRNoxyCODONE 5-10 mg oral liquid (ROXICODONE) 5-10 mg ORAL/FEEDING TUBE q 4 HPRNpantoprazole 40 mg CUP (PROTONIX) 40 mg ORAL DAILY (6 AM)SUMAtriptan 100 mg tab(s) (IMITREX) 100 mg ORAL DIRECTED PRNLabsCBCCBCRecent Labs 02/15/1820WBC 12.53* 10.69 3.94HB 11.6 11.2* 11.6HCT 35.4* 34.4* 36.3PLT 261 263 278BMPRecent Labs 02/15/1820NA 140 141 141K 4.3 4.0 3.9CHLOR 105 105 104CO2 24 24 27BUN 14 12 13CREAT 0.72 0.73 0.86GLUC 195* 176* 85CA 8.6 8.3* 9.1LFT'sRecent Labs TPROT 7.1ALB 4.0ALT 18AST 22ALKPHOS 124*TBILI 0.4Assessment/Plan68 year old female who presents with paraesophageal hernia. She is S/P POD3 Laparoscopic converted to open paraesophageal hernia repair, Nissenfundoplication, splenectomy. Admitted to SICU for post op monitoring.Patient clinically doing well, recovering as expected.?PLAN:-diet: FLD-pain control PRN (liquid maru, tylenol 1000m q6h)-post splenectomy vaccines arranged for 02/28/2018 (HiB, pneumococcal,meningococcal, influenza), may receive prior to DC if still here in 9-9gtnq-Kwdmxnvyu incentive spirometry and ambulation, wean oxygen as tolerated-SCD's and SQH for DVT prophylaxis-will likely discharge today or tomorrowAntroscoe Hayes MDGeneral Surgery, PGY-5Pager: [phone] Surgery Pager: [phone], weekdays 6A-6POn call pager: [phone], nights and weekends? Normal [facility] Phosphoruson 02-16-2018 Phosphate mass conc 1.7 mg/dL Low 2.5-4.5 [facility] Comment on above: Performed By: #### P HOS ####[facility] [place], [place] [phone] APTTon 02-15-2018 aPTT Coag time (Bld) 20.8 s Low 23.0-32.4 [facility] Comment on above: Result Comment: Unfr actionated Heparin Therapeutic Ranges:Standard Heparin Nomogram: 53 to 78 seconds (anti-Xa level of 0.3 to 0.7 U/ml)Low Dose/ACS Nomogram: 49 to 67 seconds (anti-Xa level of 0.2 to 0.5 U/ml)Stroke Treatment Nomogram: 49 to 67 seconds (anti-Xa level of 0.2 to 0.5 U/ml)Note: The APTT therapeutic range has been determined for the current lot of laboratory APTT reagent in use throughout the [facility]. Performed By: #### C BCDIF, PTT, PT, AMYL, BMP, MG1 ####[facility] [place], [place] [phone] Amylaseon 02-15-2018 Amylase enzyme act/vol 228 U/L High 0-137 [facility] Comment on above: Performed By: #### C BCDIF, PTT, PT, AMYL, BMP, MG1 ####[facility] [place], [place] [phone] Amylase,Body Fluidon 018 Amylase,Body Fluid 64 U/L Critically abnormal See Comm ent [facility] Comment on above: Result Comment: (NOT E)PLEURAL FLUIDS:Amylase measurement in pleural fluid is considered a useful test fordetecting amylase-rich pleural effusions, which may be caused byexudative conditions associated with pancreatitis, esophagealrupture, malignancy, pneumonia, and liver cirrhosis. A ratio ofpleural fluid amylase to a concurrent serum amylase >1 is defined asan amylase-rich pleural effusion.PERITONEAL FLUIDS AND DRAINAGE FLUIDS:Pancreatic damage causes extravasation of amylase from the exocrinecells into the peritoneal space. In cases of pancreatitis, fluidamylase should be at least several-fold times higher in fluid ofpancreatic origin compared to concurrent serum amylase values.PANCREATIC CYST FLUID:Pancreatic cyst fluid amylase may aid in characterizing tumors andshould be interpreted along with other clinical and laboratoryinformation.References:1. Emmanuel GUEVARA, Eliza Rashid. Body fluid analysis: clinicalutility and applicability of published studies to guideinterpretation of todays laboratory testing in serous fluids. CritRev Clin Lab Sci, 2013;50(4-5):107-124.2. CLSI. Analysis of Body Fluids in Clinical Chemistry; ApprovedGuideline. CLSI document C49-A. JOSEFINA Giordano: Clinical LaboratoryStandards [place]; 2006.3. Donovan VIGIL, Neel MCLAUGHLIN, Renzo DJ. Use of cyst fluid CEA,CA19-9, and amylase for evaluation of pancreatic lesions. ClinicalBiochemistry. 2009;42:9571-2915.This test was developed and its performance characteristicsdetermined by [facility]'s [facility] andAt[facility] Hospitalor[facility] Medicine [place] ([facility]).It has not been cleared or approved by the FDA. [facility] is regulatedunder [facility] as qualified to perform high-complexity testing.This test is used for clinical purposes. It should not be regarded asinvestigational or for research. Performed By: #### F AMYL ####[address] [phone] Medical [facility] [place] [place], [place] [phone] Fluid Type Gopi Pedro Drain Normal [facility] Comment on above: Performed By: #### F AMYL ####[address] [phone] Medical [facility], [place], [place] [phone] Basic Metabolic Panlon 02-15 Anion gap 3 molar conc 11 mmol/L Normal 9-18 [facility] Comment on above: Performed By: #### C BCDIF, PTT, PT, AMYL, BMP, MG1 ####[place] [phone] Calcium mass conc 8.6 mg/dL Normal 8.5-10.5 [facility] Comment on above: Performed By: #### C BCDIF, PTT, PT, AMYL, BMP, MG1 ####[place] [phone] Chloride molar conc 105 mmol/L Normal 98-110 [facility] Comment on above: Performed By: #### C BCDIF, PTT, PT, AMYL, BMP, MG1 ####[place] [phone] CO2 molar conc 24 mmol/L Normal 23-32 [facility] Comment on above: Performed By: #### C BCDIF, PTT, PT, AMYL, BMP, MG1 ####[place] [phone] Creatinine mass conc 0.72 mg/dL Normal 0.70-1.40 [facility] Comment on above: Performed By: #### C BCDIF, PTT, PT, AMYL, BMP, MG1 ####[place] [phone] eGFR- Amer. >60 Normal >60 [facility] Comment on above: Performed By: #### C BCDIF, PTT, PT, AMYL, BMP, MG1 ####[place] [phone] GFR/1.73 sq M predicted leonela g non-blacks MDRD vol rate/area (S/P/Bld) mL/min/{1.73_m2} Normal >60 [facility] Comment on above: Performed By: #### C BCDIF, PTT, PT, AMYL, BMP, MG1 ####[place] [phone] Glucose mass conc 195 mg/dL High 65-100 [facility] Comment on above: Performed By: #### C BCDIF, PTT, PT, AMYL, BMP, MG1 ####[place] [phone] Potassium molar conc 4.3 mmol/L Normal 3.5-5.0 [facility] Comment on above: Performed By: #### C BCDIF, PTT, PT, AMYL, BMP, MG1 ####[place] [phone] Sodium molar conc 140 mmol/L Normal 132-148 [facility] Comment on above: Performed By: #### C BCDIF, PTT, PT, AMYL, BMP, MG1 ####[place] [phone] Urea nitrogen mass conc 14 mg/dL Normal 8-25 [facility] Comment on above: Performed By: #### C BCDIF, PTT, PT, AMYL, BMP, MG1 ####[place] [phone] CBC and Differentialon 02-15 Abs Baso <0.03 Normal <0.11 [facility] Comment on above: Performed By: #### A BINTB ####[facility] [place] [place], [place] [phone] Abs [place] 0.74 k/uL Normal <0.87 [facility] Comment on above: Performed By: #### A BINTB ####[facility] [place] [place], [place] [phone] Abs Neut 11.13 k/uL High 1.45-7.50 [facility] Comment on above: Performed By: #### A BINTB ####[place] [address] [place], [place] [phone] Basophils/100 WBC Auto (Bld) 0.1 % Normal [facility] Comment on above: Performed By: #### A BINTB ####[facility] [place] [place] [phone] DTYPE Auto Diff Normal [facility] Comment on above: Performed By: #### A BINTB ####[place] [address] [phone] Eosinophils Auto #/vol (Bld) 10*3/uL Normal <0.46 [facility] Comment on above: Performed By: #### A BINTB ####[place] [address] [phone] Eosinophils/100 WBC Auto (Bld) 0.0 % Normal [facility] Comment on above: Performed By: #### A BINTB ####[address] [phone] Erythrocyte distribution wid th Auto Ratio (RBC) 16.6 % High 11.5-15.0 [facility] Comment on above: Performed By: #### A BINTB ####[place] [address] [phone] Hematocrit Auto Volume Fraction (Bld) 35.4 % Low 36.0-46.0 [facility] Comment on above: Performed By: #### A BINTB ####[address] [phone] Hemoglobin mass conc (Bld) 11.6 g/dL Normal 11.5-15.5 [facility] Comment on above: Performed By: #### A BINTB ####[place] [address] [phone] Lymphocytes Auto #/vol (Bld) 0.65 10*3/uL Low 1.00- 4.00 [facility] Comment on above: Performed By: #### A BINTB ####[place] [address] [phone] Lymphocytes/100 WBC Auto (Bld) 5.2 % Normal [facility] Comment on above: Performed By: #### A BINTB ####[place] [address] [address], [place] [phone] MCH Auto Entitic mass (RBC) 28.9 pG Normal 26.0-34. 0 [facility] Comment on above: Performed By: #### A BINTB ####[place] [phone] MCHC Auto mass conc (RBC) 32.8 g/dL Normal 30.5-36.0 [facility] Comment on above: Performed By: #### A BINTB ####[place] [phone] MCV Auto Entitic volume (RBC) 88.3 fL Normal 80.0-1 00.0 [facility] Comment on above: Performed By: #### A BINTB ####[place] [phone] Monocytes/100 WBC Auto (Bld) 5.9 % Normal [facility] Comment on above: Performed By: #### A BINTB ####[place] [phone] Neutrophils/100 WBC Auto (Bld) 88.8 % Normal [facility] Comment on above: Performed By: #### A BINTB ####[place] [phone] Platelet mean volume Auto En titic volume (Bld) 9.3 fL Normal 9.0-12.7 [facility] l Comment on above: Performed By: #### A BINTB ####[place] [address] [address] [place] [phone] Platelets Auto #/vol (Bld) 261 10*3/uL Normal 150-400 [facility] Comment on above: Performed By: #### A BINTB ####[place] [phone] RBC Auto #/vol (Bld) 4.01 10*6/uL Normal 3.90-5.20 [facility] Comment on above: Performed By: #### A BINTB ####[facility] [address] [place], [place] [phone] WBC Auto #/vol (Bld) 12.53 10*3/uL High 3.70-11.00 [facility] Comment on above: Performed By: #### A BINTB ####[facility] [address] [place], [place] [phone] Magnesiumon 02-15-2018 Magnesium mass conc 2.1 mg/dL Normal 1.7-2.6 [facility] Comment on above: Result Comment: Revi ewed Performed By: #### C BCDIF, PTT, PT, AMYL, BMP, MG1 ####[facility] [place], [place] [phone] NURSING PROGon 02-15-2018 Protein mass conc HNO ID: [id number]: Dionisio (Rn) Ale paulson, TRUDYervice: (none)Author Type: Registered NurseType: Nursing Progress NoteFiled: 02/15/2018 6:27 PMNote Text: Nursing Progress NotePatient Name: Brenda McclainMRN: [id number] Location: [place] [address]/RR-[id number]-10 Daily Note:02/15/18 1030- Patient arrived to room 313 from [facility] via cartat approximately 1030. Patient is alert and oriented times three, calmand cooperative, vitals are stable, oxygen saturation is adequate on 2L.Speech is clear and coherent. Hand grasps and push/pulls are equalbilaterally, pulses are palpable with good movement and sensation, noedema noted. Lungs are clear with diminished bases. Abdomen is soft,tender, hypoactive in all quadrants. Midline incision dressing and lapsite dressings are clean, dry and intact. ACE to left of abdomen isdraining small amount of serosanguenous drainage. Abdominal binder is inplace (removed to assess and replaced). Skin is warm, dry and intact. NGin place is clamped; patient denies any nausea or vomiting. Oriented toroom, no needs at this time. Call light and belongings are within reach.1150- Patient is resting in bed, her family is at bedside. There is anorder for clear liquids but no order to DC NG tube. Paged JOSEFINA Núñez at [phone] with no call back; paged the green team. NG remains clamped atthis time.1230- Per orders, removed NG tube, patient tolerated this well. Patientswallowed water without difficulty. Provided patient with clear liquidmenu and instructed her how to order. Medicated with scheduled tylenolfor abdominal stretching pain rated 6/10. No needs at this time. Calllight and belongings are within reach.1635- Patient is sleeping, her daughter is at bedside. Patient had beencomplaining of abdominal pain, medicated with PRN oxy with good results.Patient is tolerating a clear liquid diet. No void since beck removed.Patient was assisted to the bedside commode with one person assist but wasunable to void. Will reassess when patient wakes. Call light andbelongings are within reach.1825- Patient was assisted to the bathroom and then to sit in the chairwith one person assist. Patient able to void but missed the hat so it wasnot measured. Medicated with scheduled tylenol for abdominal pain rated6/10. is at bedside, no needs at this time. Call light andbelongings are within reach.This note was completed by: Dionisio Leung RN [facility] Protein mass conc HNO ID: [id number]: Amber (Herminio) TRUDY Martinezervice: (none)Author Type: Registered NurseType: Nursing Progress NoteFiled: 02/15/2018 10:31 AMNote Text: Nursing Progress NotePatient Name: Brenda McclainMRN: [id number] Location: [place] [address]/TW-VFR-74 Daily Note:0700. Report received from steamship agent RN. Patient resting comfortably inbed at this time. Vital signs stable.0800. Assessment complete; see documentation.0915. Arterial line removed and pressure applied until hemostasis wasachieved.0920. Attempted to call report. Nurse unavailable.0950. Report called to RN on PK3A who will be resuming care of patient.1010. Beck catheter removed.1015. Patient transported to [facility] via wheelchair on portable O2. Allbelongings and chart sent with patient.This note was completed by: Amber Martinez RN [facility] Protein mass conc HNO ID: [id number]: TRUDY Chaparro Rnervice: (none)Author Type: Registered NurseType: Nursing Progress NoteFiled: 02/15/2018 8:02 AMNote Text: Nursing Progress NotePatient Name: Brenda BatistaleonardMRN: [id number] Location: [place] [address]/JC-VPJ-76 Daily Note:2315: Received report from Aaron DIETZ.0000: Assessment complete, see flow sheet. VSS.0344: Reassessment complete, see flow sheet. PRN labetolol given per MARfor SBP . 160. All other VSS.0725: Report given to HERMINIO ClarkThidarion note was completed by: Negro Beaulieu RN [facility] Protein mass conc HNO ID: [id number]: Aaron Mann) TRUDY Esteservice: (none)Author Type: Registered NurseType: Nursing Progress NoteFiled: 02/14/2018 11:21 PMNote Text: Nursing Progress NotePatient Name: Brenda Miller CoryN: [id number] Location: [place] [address]/WT-LMM-93 Daily Note:2029: Patient arrived to SICU bed 8 with OR team, patient bathed andplaced on 3L NC. Pt drowsy at this time. Please see flowsheets forassessments.2044: Dr. Lawler and Dr. Rivera in to see patient upon arrival, ordersreceived.2049: Labs sent.2114: Family brought back and updated on patient.2199: Patient remains drowsy d/t anesthesia, nods appropriately.2299: Report given to Luis DIETZ.This note was completed by: Aaron Mcdermott RN [facility] PROGRESSon 02-15-2018 Protein mass conc HNO ID: [id number]: Surendra (Elva) Mooseervice: General SurgeryAuthor Type: ResidentType: Progress NotesFiled: 02/15/2018 8:42 AMNote Text:General Surgery Progress NoteName: Brenda Miller SarahiMRN: [id number] update:Overall, patient is doing well. No significant overnight issues noted.-Abdominal pain present however well controlled-Patient reports no nausea/ vomiting, fever/chills, chest pain, shortnessof breath, or other symptoms.ObjectivePhysical exam: BP 125/80 Pulse 91 Temp 37 ?C (98.6 ?F) (Axillary) Resp 21 Ht 157.5 cm (5' 2 ) Wt 80.9 kg (178 lb 5.6 oz) SpO2 95% BMI 32.62 kg/m?- General: Patient is resting comfortably on exam, not in any distress andis pleasant and cooperative.- Neuro: alert and oriented x3- Abdomen: soft, appropriately tender, non distended. Incision: Clean,dry, intact. No erythema noted. ACE drain in place with SS output.- Chest: Non-labored, symmetrical respirations.- CVS: Pulse RRRDate 02/14/18 0700 - 02/15/18 0659 02/15/18 0700 - 02/16/18 0659Shift 2533-9476 8460-6776 1695-9745 24 Hour Total 6000-0359 1845-82107929-1595 24 Hour TotalINTAKE IV 3500 927 4427 NS 0.9% 3500 917 4417 Calcium IVPB 10 10 Blood Products 350 350 PRBC Intake (mL) 350 350 Irrigants 20 60 80 Irrigant/Flush Amount In (GI Feed/Drain 02/14/182029 AssessmentNasogastric Left Naris 16 Fr) 20 60 80 Shift Total 3870 987 4857OUTPUT Urine 320 595 915 Output ( Indwelling Urinary Catheter 02/14/18 1448 Beck 16 Fr)320 595 915 Tubes 25 15 40 Drain/Tube Output (Drain/Tube 02/14/181913 Hector Left Abdomen Drain#1) 25 15 40 Output (GI Feed/Drain 02/14/182029 Assessment Nasogastric Left Naris16 Fr) 0 0 Blood 700 700 Estimated Blood loss 700 700 Shift Total 1045 610 1655Weight (kg) 80.9 80.9 80.9 80.9 80.9 80.9Medications:Current hospital medications:acetaminophen 1,000 mg CUP (TYLENOL) 1,000 mg ORAL/FEEDING TUBE q 6 Hdextrose 40 % 15 g 15 g ORAL PRNdextrose 50% in water 25 mL syringe 12.5 g INTRAVENOUS PRNdocusate 100 mg CUP (COLACE) 100 mg ORAL/FEEDING TUBE BIDglucagon 1 mg injection (GLUCAGEN) 1 mg INTRAMUSCULAR PRNheparin 5,000 Units injection 5,000 Units SUBCUTANEOUS q 12 HHYDROmorphone 0.2 mg injection (DILAUDID) 0.2 mg INTRAVENOUS q 2 H PRNinsulin lispro injection (rapid acting) (HumaLOG) SUBCUTANEOUS q 6 Hlabetalol 5 mg injection syringe (NORMODYNE) 5 mg INTRAVENOUS q 4 H PRNNaCl 0.9% iv infusion 5-125 mL/hr INTRAVENOUS CONTINUOUSondansetron (PF) 4 mg injection (ZOFRAN) 4 mg INTRAVENOUS q 6 H PRNondansetron 4 mg tab(s) (ZOFRAN) 4 mg ORAL q 6 H PRNoxyCODONE 5-10 mg oral liquid (ROXICODONE) 5-10 mg ORAL/FEEDING TUBE q 4 HPRNpantoprazole 40 mg injection (PROTONIX) 40 mg INTRAVENOUS DAILY (6 AM)LabsCBCCBCRecent Labs 02/15/1820WBC 12.53* 10.69 3.94HB 11.6 11.2* 11.6HCT 35.4* 34.4* 36.3PLT 261 263 278BMPRecent Labs 02/15/1820NA 140 141 141K 4.3 4.0 3.9CHLOR 105 105 104CO2 24 24 27BUN 14 12 13CREAT 0.72 0.73 0.86GLUC 195* 176* 85CA 8.6 8.3* 9.1LFT'sRecent Labs TPROT 7.1ALB 4.0ALT 18AST 22ALKPHOS 124*TBILI 0.4Assessment/Plan68 year old female who presents with paraesophageal hernia. She is S/P POD1 Laparoscopic converted to open paraesophageal hernia repair, Nissenfundoplication, splenectomy. Admitted to SICU for post op monitoring.Patient clinically doing well, recovering as expected.PLAN:-diet: advance to Clear liquids-NG to LIWS-follow drain amylase-florin beck today-pain control PRN (added liquid maru, tylenol 1000m q6h)-post splenectomy vaccines arranged for 02/28/2018 (HiB, pneumococcal,meningococcal, influenza)-Encourage incentive spirometry and ambulation-SCD's and [facility] for DVT prophylaxis-Dispo: [facility] todayDiscussed with Dr. Garsia?REID Garcia-1 Resident, General SurgeryPager: [phone]; Dated: February 15, 2018, 8:38 AM? Normal [facility] Phosphoruson 02-15-2018 Phosphate mass conc 2.9 mg/dL Normal 2.5-4.5 [facility] Comment on above: Performed By: #### P HOS ####[place] [address] [place], [place] [phone] Protimeon 02-15-2018 INR Coag RelTime (Bld) 1.0 {INR} Normal 0.9-1.3 [facility] Comment on above: Result Comment: Danni min K Antagonist (VKA) Therapeutic Range: INR 2 to 3 (Target INR of 2.5)Note: For patients treated with VKA drugs, such as warfarin, the [employer] 2012 Guideline recommends a therapeutic INR range of 2 to 3 (target INR of 2.5). This recommendation includes high-risk patients with antiphospholipid syndrome with previous arterial or venous thromboembolism, current-generation mechanical or bioprosthetic aortic heart valve replacement.Note: Patients with mechanical aortic valve replacement and additional risk factors for thromboembolic events (atrial fibrillation, previous thromboembolism, LV dysfunction, hypercoagulable conditions) or an older generation mechanical AVR (i.e., ball in-Cage) or any mechanical MVR should have a INR therapeutic range of 2.5 to 3.5 (target INR of 3).Nancy GH, et al. Chest 2012, 141:7S-47SNishimiam RA, et al. [facility] 2017, 70: 252-289 Performed By: #### C BCDIF, PTT, PT, AMYL, BMP, MG1 ####[address] [phone] PT Sec 10.5 sec Normal 9.7-13.0 [facility] Comment on above: Performed By: #### C BCDIF, PTT, PT, AMYL, BMP, MG1 ####[address] [phone] THERAPY NTon 02-15-2018 THERAPY NT HNO ID: [id number]: Milagro (Ot) Y ocabetService: Occupational TherapyAuthor Type: Occupational TherapistType: Therapy (PT/OT/Speech/Resp)Filed: 02/15/2018 10:26 AMNote Text:Occupational Therapy EvaluationSERVICE DATE: 02/15/2018SERVICE TIME: 0850 to 0913ROOM: [id number] Discharge Disposition: Home OTAnticipated Discharge Needs: Physical Assist at HomePhysical Assist at Home for:Cleaning;Laundry;Meals;Stairs;Transportation;ShoppingRecom mended Discharge Equipment: To Be DeterminedOT Recommendations to Nursing: OOB for meals;To Bathroom for ADL?s /and orToiletingOT 6 Clicks Score: 15Precautions/Activity Restrictions: Fall Risk;Lines/Tubes/DrainsASSESSMENT:68 yo patient admitted to the hospital for paraesophageal hernia repair,splenectomy, Kimmy fundoplication. Patient's pertinent PMHx in Epic.Patient's impairments as related to Occupational Therapy include decreasedstrength/endurance, impaired balance, functional mobility and self careperformance. Patient may benefit from HomeOccupational Therapy in orderto continue to progress functional mobility and ADL skills. Patient hasadequate support and social structure for reasonably safe discharge homeat current level.Patient Disposition at Start of Session: Supine in Bed;Call Mathews in ReachPatient Disposition at End of Session: OOB in Chair;Call Mathews in ReachTolerated Full SessionOccupational Therapy Problem List: Pain;Safety Deficits;Impaired SelfCare;Balance Impaired;Functional Mobility ImpairmentPatient /Caregiver Goals: Go Home;Care For SelfGoals for Plan of Care:Grooming with: IndependentUpper Body Bathing with: IndependentUpper Body Dressing with: IndependentLower Body Bathing with: Minimal AssistanceLower Body Dressing with: Minimal AssistanceToilet Hygiene with: Stand By AssistanceChair Transfer with: Stand By AssistanceToilet Transfer with: Stand By AssistanceRehab Potential: ExcellentPLAN:Treatment Frequency (times per week): 1 Current admissionTreatment Interventions: Education;Self Care / Home Management;FunctionalMobility Training;Balance TrainingPlan of Care developed with: PatientTREATMENT INTERVENTIONS:Therapy Diagnosis: Reduced mobility-other;Decreased activities of dailyliving (ADL)Interventions Provided: Evaluation;Self Snf Management (32918)$ Evaluation-Low (93219) Billed Units: 1 unitSelf Snf Management (20125) Treatment Minutes: 81 unitSkilled Intervention(s): Provided cuing for hand/oral hygiene and haircombing with set up o fmaterials and verbal cues for technique. Pt seatedthroughout.Pt oriented to role of OT. Pt educated on use of calling nursing staff(via call button) for assistance and not to attempt to get up fromchair/bed without help for fall prevention.Pt educated on benefits of participation in ADLs/transfers in increasinggeneral strength and endurance. Pt educated on OT's importance inmaximizing the pt functioning and safety in ADLs/transfers Goals of OTdecided upon with pt approval. Plan of care discussed.Total Timed Code Treatment Minutes: 8Total Treatment Time (minutes): 23FUNCTIONAL G CODE:OT 6 Clicks Score: 15 (02/15/18 0850)Self Care Current Status (G8987): CK (02/15/18 0850)Self Care Goal Status (G8988): CJ (02/15/18 0850)Based on clinical assessment and the score on the 6 Clicks FunctionalAssessment Tool, the G code and corresponding severity modifiers aredocumented above.SUBJECTIVE:Current Hospital Course: Chart reviewed; see belowReason for Occupational Therapy Consult: paraesophageal hernia repair,splenectomy, Kimmy fundoplicationRelevant Past Medical History: anemia, GERD, IBS, HTNPatient Report: I am just sore. Home EnvironmentPatient Lives With: SpouseAssistance Available: PRNEntry To Home: StairsNumber Of Stairs Into Home: 3Number Of Stairs To Bed/Bath: 20Stairs to Bed/Bath with: Unilateral RailTub/Shower Type: Walk in showerLaundry: 10 steps with rails to basement laundry.Equipment Owned: Shower Bench;Grab Bars-ShowerPrior Functional Level: Within Functional LimitsPrior Functional Level Comments: Amb without AD. Independent. Drives.OBJECTIVE:CURRENT FUNCTIONAL STATUS:Current Activities of Daily Living Assist LevelFeeding Set Up (simulated hand to mouth)Grooming Stand By Assistance (seated)Bathing Upper Body Moderate AssistanceBathing Lower Body Maximal AssistanceDressing Upper Body Moderate AssistanceDressing Lower Body Total AssistanceToileting Maximal AssistanceInstrumental Activities of Daily Living Assist LevelMeal/Beverage PrepLight CleaningLaundryMedication Management with StrategiesFunctional Mobility Assist LevelRollingSupine to Sit Moderate AssistanceSit to SupineScootingSit to Stand Minimal AssistanceStand to Sit Minimal AssistanceBed to Chair Minimal AssistanceToilet/Commode Minimal Assistance (simulation)Functional Mobility Hand Held AssistPlease see discipline specific clinical documentation flowsheet forcomplete details for this therapy evaluation/treatment.SIGNATURE: Milagro Craig OT/Angela PATIENT NAME: Brenda Miller BudayDATE: February 15, 2018 : 10:23 AM Normal [facility] THERAPY NT HNO ID: [id number]: Shannon (Pt) Louis oburnService: Physical TherapyAuthor Type: Physical TherapistType: Therapy (PT/OT/Speech/Resp)Filed: 02/15/2018 9:24 AMNote Text:Physical Therapy EvaluationSERVICE DATE: 02/15/2018SERVICE TIME: 839 to 902ROOM: [id number] Discharge Disposition: Home PTPT Recommendations to Nursing: Ambulate without device;In halls;Withassist of 1 personPT 6 Clicks Score: 13Precautions/Activity Restrictions: Fall Risk;Lines/Tubes/DrainsASSESSMENT :Patient's impairments as related to Physical Therapy include decreasedstrength, impaired balance and trunk control, and impaired safety withfunctional mobility. Pt required close monitoring of vital signs withactivity due to potential fluctuations with activity. Pt requires skilledPT services to address functional mobility progression and dosing, andbalance training for safety to decrease risk of falls in order to improvesafety and independence with functional mobility.Patient may benefit from home PT to progress strength, endurance, and safefunctional mobility. Patient has adequate support and social structurefor reasonably safe discharge home at current level.Patient Disposition at Start of Session: Supine in BedPatient Disposition at End of Session: OOB in Chair;Call Mathews in ReachTolerated Full SessionPhysical Therapy Problem List: Decreased Strength;Decreased ActivityTolerance;Functional Mobility Impairment;Balance ImpairedPatient /Caregiver Goals: Go HomeGoals for Plan of Care:Able to perform HEP with: SupervisionTransfer supine to/from sit with: SupervisionTransfer sit to/from stand with: SupervisionAmbulate with: SupervisionDistance: 200Device: No DeviceAmbulate up and down steps with: SupervisionNumber of steps: 10Device: RailProgress Toward Goals: Progressing as expectedRehab Potential: GoodPLAN:Treatment Frequency (times per week): 2 (and PRN visit) Current admissionTreatment Interventions: Strengthening;Functional MobilityTraining;Balance TrainingPlan of Care developed with: PatientTREATMENT INTERVENTIONS:Therapy Diagnosis: Reduced mobility-otherInterventions Provided: Evaluation;Gait Training (63034)$ Evaluation-High (61332) Billed Units: 1 unitGait Training (31321) Treatment Minutes: 81 unitSkilled Intervention(s): Instruction in supine to sit with cues forsequence, Instruction in sit to stand technique with proper hand placementand body positioning at edge of bed/chair, Instruction in stand to sittechnique with LE's touching chair/bed and reaching back for surface,Instruction in sequencing, gait pattern, Instruction in correction of gaitdeviations and Vital signs were monitored by PT and remained stable.Education on role of PT, PT POC, and benefits of out of bed activity.Total Timed Code Treatment Minutes: 8Total Treatment Time (minutes): 23FUNCTIONAL G CODE:PT 6 Clicks Score: 13 (02/15/18 0840)Mobility: Walking and Moving Around Current Status (G8978): CL ()Mobility: Walking and Moving Around Goal Status (G8979): CJ ()Based on clinical assessment and the score on the 6 Clicks FunctionalAssessment Tool, the G code and corresponding severity modifiers aredocumented above.SUBJECTIVE:Current Hospital Course: Chart reviewed; see belowReason for Physical Therapy Consult : Pt had paraesophageal hernia and iss/p lap converted to open paraesophageal hernia repair, Nissanfundoplication, splenectomy.Relevant Past Medical History: HTN, uterine CA, depression, DVTPatient Report: It hurts. Home EnvironmentPatient Lives With: SpouseAssistance Available: PRNEntry To Home: StairsNumber Of Stairs Into Home: 3Number Of Stairs To Bed/Bath: 20Stairs to Bed/Bath with: Unilateral RailTub/Shower Type: Walk in showerLaundry: 10 steps with rails to basement laundry.Equipment Owned: Shower Bench;Grab Bars-ShowerPrior Functional Level: Within Functional LimitsPrior Functional Level Comments: Amb without AD. Independent. Drives.OBJECTIVE:CURRENT FUNCTIONAL STATUS:Current Functional Mobility Assist Level Additional InformationRollingSupine to Sit Moderate AssistanceSit to SupineScootingSit to Stand Minimal AssistanceStand to Sit Minimal AssistanceBed to ChairToilet/CommodeGait Moderate Assistance Gait Device: (Arm in arm) Gait Distance (feet): 20StairsCurb StepCar TransferGeneral Gait Deviations: Wide base of support;Step lengthdecreased;Shuffling Gait;Tish decreased (Cues for sequence. VSS.)Balance: Static Standing;Dynamic StandingStatic Standing Balance: Moderate AssistanceDynamic Standing Balance: Moderate AssistanceJH-HLM: 6: Walk 10 steps or morePlease see discipline specific clinical documentation flowsheet forcomplete details for this therapy evaluation/treatment.SIGNATURE: Shannon Rodríguez PT PATIENT NAME: Brenda McclainDATE: February 15, 2018 : 9:23 AM [facility] ALLIED HEALTHon 02-14-2018 ALLIED HEALTH HNO ID: [id number] thor: Mariel Ervin (Rt)vice: RadiologyAuthor Type: TechnicianType: Allied HealthFiled: 02/14/2018 7:12 PMNote Text: Radiology Service Progress NotePATIENT NAME: Brenda McclainMRN: [id number] OF SERVICE: February 14, 2018TIME: 7:11 PMPATIENT IDENTITY VERIFICATION COMPLETED USING TWO (2) METHODS: Patientconfirmed name verbally and ID band matches..PATIENT GENDER DATA: Female. status: : NoBreastfeeding status: NO.PATIENT RELEVANT IMPLANT DATA REVIEWED: Not ApplicableRADIOLOGY DEPARTMENT: General X-ray: Exam(s) Completed: Abdomen X-RayAbdomenPERIPHERAL IV DATA: Not applicableSIGNED BY: Mike Ervin 2017 7:11 PM [facility] pital ANES Christianne 02-14-2018 ANES POST HNO ID: [id number] thor: Ryan AlextoiuService: AnesthesiologyAuthor Type: AnesthesiologistType: Anesthesia PostOpFiled: 02/14/2018 8:37 PMNote Text:POST ANESTHESIA EVALUATION NOTESERVICE DATE: 02/14/2018SERVICE TIME: 8:36 PMDOB: 1950Vitals: BP: 125/80Pulse: 77Resp: 18Temp: 36.9 ?C (98.4 ?F)TempSrc: Temporal ArterySpO2: 96%Validated Vital Signs: YesPACU/ICU Patient Condition: StableNeurological Status: Sleepy but arousable.Pulmonary Status: Breathing comfortably on supplemental oxygen.Airway Control: Returned to baseline unsupported.Cardiovascular Status: StablePain: Adequately controlledPostoperative Nausea/Vomiting: No significant post operative nausea orvomitingPostoperative Hydration Status: Adequate.Intra-Operative Events: No Significant Anesthesia EventsAnesthetic Complications: NoneRecommendation: Continue current plan of care and Further care perPACU/ICU/Floor teamOther Remarks:SIGNATURE: Ryan Boyle MD PATIENT NAME: Brenda McclainDATE: February 14, 2018 : 8:36 PM PAGER/CONTACT #: [phone] [facility] ANES PREOPon 02-14-2018 ANES PREOP HNO ID: [id number] thor: John TseeService: AnesthesiologyAuthor Type: AnesthesiologistType: Anesthesia PreOpFiled: 02/15/2018 7:09 AMNote Text:REGIONAL ANESTHESIOLOGY DAY OF SURGERY NOTEPATIENT NAME: Brenda McclainMRN: [id number]: 1950Procedure(s) (LRB):LAPAROSCOPIC RPR PARAESOHAGEAL HERNIA W/ FUNDOPLASTY W/ MESH (N/A)Surgeon(s):Monica () Tata (Elva) MunteanEstimated body mass index is 30.55 kg/m? as calculated from the following: Height as of 01/25/18: 161.3 cm (5' 3.5 ). Weight as of 01/25/18: 79.5 kg (175 lb 3.2 oz).ASA Class: 3Adequate NPO status: YesAllergies:ALLERGIESAllergen Reactions- Adhesive Tape (Shama* Rash- Cefuroxime Axetil GI Upset- Clindamycin Hcl IntoleranceAirway Assessment: MP 2; Neck ROM: Full ROM without neurologic symptoms;Airway Evaluation: No significant abnormalitiesDentition: Complete upper denturesPartial lower denturesSymptoms of Sleep Apnea: DeniesMost recent lab results:Hemoglobin 11.6 01/25/2018Hematocrit 36.3 01/25/2018Potassium 3.9 01/25/2018Platelet Count 278 01/25/2018Creatinine 0.86 01/25/2018Historic type and screen with positive antibodies; confirmatory to bedrawn surgeon aware.EKG:normal EKG, normal sinus rhythmVitals: BP: 125/80Pulse: 77Resp: 18Temp: 36.9 ?C (98.4 ?F)TempSrc: Temporal ArterySpO2: 96%Previous Anesthesia: No history of adverse event Family history ofanesthetic problems: NoneAdditional Physical Exam:Lungs: Lungs clear to auscultation. Good diaphragmatic excursion.Cardiac: Normal S1 and S2; no rubs, no murmurs and no gallopsAdditional pertinent findings: N/AOther Medical Problems/ Important Considerations:Denies chest pain and SOB with exertion.GERD well controlled with no positional symptoms.Chronic Beta Roberto Carlos medication administered within 24 hours: N/AAnesthetic risks, benefits, alternatives, personnel and consent discussed:YesPatient agrees to proceed: YesBlood Products: Will accept Blood/Blood ProductsAnesthetic Plan: General ETT; Standard ASA MonitorsPain Management Plan: ROOT ProtocolParenteral or OralEPIC Chart ReviewACTIVE PROBLEM LISTParaesophageal HerniaAnemiaHtn (Hypertension)HypercholesteremiaIbs (Irritable Bowel Syndrome)Monoclonal Gammopathy of Undetermined SignificancePAST MEDICAL HISTORYDiagnosis Date- Anemia- BCC (basal cell carcinoma)- Depression- DVT (deep vein thrombosis) in (HCC) after childbirth 40+ years ago- GERD (gastroesophageal reflux disease)- Hiatal hernia- HTN (hypertension)- Hypercholesteremia- IBS (irritable bowel syndrome)- Monoclonal gammopathy of undetermined significance 01/25/2018- Uterine cancer (HCC)PAST SURGICAL HISTORYProcedure Laterality Date- HEMORRHOIDECTOMY- HYSTERECTOMY- REVISE ULNAR NERVE AT ELBOW- VEIN SURGERY (SPECIFY LOCATION) HXFAMILY HISTORYProblem Relation Age of Onset- other (lung cancer) Mother- Alzheimer's Disease Father- No Known Problems Sister- No Known Problems BrotherSocial History:Social HistorySubstance Use Topics- Smoking status: Never Smoker- Smokeless tobacco: Never Used- Alcohol use Yes Comment: one drink at the holidays at timesNo current facility-administered medications on file prior to encounter.Current Outpatient Prescriptions on File Prior to Encounter:atorvastatin (LIPITOR) 10 mg tablet Take 10 mg by mouth once daily.citalopram hydrobromide(CELEXA 20 MG TAB) Take one(1) tablet daily atbedtime.Hydrochlorothiazide 12.5 mg capsule Take 12.5 mg by mouth once daily.irbesartan (AVAPRO) 150 mg tablet Take 150 mg by mouth once daily.Omeprazole 40 mg capsule Take 40 mg by mouth once daily.celecoxib (CELEBREX) 200 mg capsule TAKE 1 CAPSULE BY MOUTH WITH FOODDAILYdicyclomine hcl(BENTYL 10 MG CAP) Take one(1) tablet daily as needed.eletriptan hydrobromide(RELPAX 40 MG TAB) Take one(1) tablet daily asneeded.PROAIR HFA 90 mcg/actuation inhaler use 2 (TWO) puffs EVERY 4 HOURS ASNEEDEDInpatient medications reviewed in [facility].I have interviewed and examined the patient. I have reviewed the medicalrecord and/or the pre-anesthesia evaluation, pertinent labs, and testresults.Significant changes in the patient's condition since the History andPhysical, not otherwise documented in primary service progress notes: NoThis contains updated information obtained within 48 hours ofSurgery/Procedure.2 antibodies known on type and screen. Discussed with surgeon.SIGNATURE: Monica Cummings APRN.EMT I/85 PATIENT NAME: Brenda BergmanTE: February 14, 2018 : 3:19 PM PAGER/CONTACT #: [facility] al APTTon 02-14-2018 aPTT Coag time (Bld) 21.8 s Low 23.0-32.4 [facility] Comment on above: Result Comment: Unfr actionated Heparin Therapeutic Ranges:Standard Heparin Nomogram: 53 to 78 seconds (anti-Xa level of 0.3 to 0.7 U/ml)Low Dose/ACS Nomogram: 49 to 67 seconds (anti-Xa level of 0.2 to 0.5 U/ml)Stroke Treatment Nomogram: 49 to 67 seconds (anti-Xa level of 0.2 to 0.5 U/ml)Note: The APTT therapeutic range has been determined for the current lot of laboratory APTT reagent in use throughout the [facility]. Performed By: #### A BINTB ####[facility] [place] [place], [place] [phone] BRIEF OP NOTon 02-14-2018 BRIEF OP NOT HNO ID: [id number] thor: Nataly Leeervice: General SurgeryAuthor Type: ResidentType: Brief Op NoteFiled: 02/14/2018 8:48 PMNote Text:BRIEF OP NOTELOG ID: [id number]/Procedure Date: 02/14/2018Incision/Procedure Start Time: 3:11 PMIncision Close/Procedure End Time: 7:58 PMSurgeon(s)/Proceduralist(s) and Lens Assorter(s):Surgeon(s) and Role: * Monica Rodriguez) Garsia - Primary * Nataly Peña - Resident - AssistingProcedure(s): Laparoscopic converted to open paraesophageal hernia repair,Kimmy fundoplication, splenectomyAnesthesia: GeneralFindings: Large hiatal hernia, injury to a blood vessel adjacent to thespleen requiring conversion to an open operation and splenectomyEstimated Blood Loss: 700 mlsSpecimens: SpleenPre-Op/Pre-Procedure Diagnosis: Paraesophageal herniaPost-Op/Post-Procedure Diagnosis: Paraesophageal hernia [K44.9SIGNATURE: Nataly Peña MD PATIENT NAME: Brenda BergmanTE: February 14, 2018 : 8:26 PM PAGER/CONTACT #: Normal [facility] Basic Metabolic Panlon 02-14 Anion gap 3 molar conc 12 mmol/L Normal 9-18 [facility] Comment on above: Performed By: #### A BINTB ####[facility] [address] [place], [place] [phone] Calcium mass conc 8.3 mg/dL Low 8.5-10.5 [facility] Comment on above: Performed By: #### A BINTB ####[facility] [place] [place], [place] [phone] Chloride molar conc 105 mmol/L Normal 98-110 [facility] Comment on above: Performed By: #### A BINTB ####[facility] [place] [place], [place] [phone] CO2 molar conc 24 mmol/L Normal 23-32 [facility] Comment on above: Performed By: #### A BINTB ####[place] [address] [place], [place] [phone] Creatinine mass conc 0.73 mg/dL Normal 0.70-1.40 [facility] Comment on above: Performed By: #### A BINTB ####[address] [phone] eGFR- Amer. >60 Normal >60 [facility] Comment on above: Performed By: #### A BINTB ####[address] [phone] GFR/1.73 sq M predicted leonela g non-blacks MDRD vol rate/area (S/P/Bld) mL/min/{1.73_m2} Normal >60 [facility] Comment on above: Performed By: #### A BINTB ####[address] [phone] Glucose mass conc 176 mg/dL High 65-100 [facility] Comment on above: Performed By: #### A BINTB ####[address] [phone] Potassium molar conc 4.0 mmol/L Normal 3.5-5.0 [facility] Comment on above: Performed By: #### A BINTB ####[address] [phone] Sodium molar conc 141 mmol/L Normal 132-148 [facility] Comment on above: Performed By: #### A BINTB ####[address] [phone] Urea nitrogen mass conc 12 mg/dL Normal 8-25 [facility] Comment on above: Performed By: #### A BINTB ####[address] [phone] CBC and Differentialon 12-26 -2018 Abs Baso <0.03 Normal <0.11 [facility] Comment on above: Performed By: #### A BINTB ####[place] [address] [place] [place], [place] [phone] Abs [place] 0.58 k/uL Normal <0.87 [facility] Comment on above: Performed By: #### A BINTB ####[place] [address] [place] [phone] Abs Neut 9.32 k/uL High 1.45-7.50 [facility] Comment on above: Performed By: #### A BINTB ####[place] [address] [place], [place] [phone] Basophils/100 WBC Auto (Bld) 0.0 % Normal [facility] Comment on above: Performed By: #### A BINTB ####[place] [phone] DTYPE Auto Diff Normal [facility] Comment on above: Performed By: #### A BINTB ####[place] [address] [place] [phone] Eosinophils Auto #/vol (Bld) 10*3/uL Normal <0.46 [facility] Comment on above: Performed By: #### A BINTB ####[place] [address] [place] [phone] Eosinophils/100 WBC Auto (Bld) 0.0 % Normal [facility] Comment on above: Performed By: #### A BINTB ####[place] [address] [place] [phone] Erythrocyte distribution wid th Auto Ratio (RBC) 16.8 % High 11.5-15.0 [facility] Comment on above: Performed By: #### A BINTB ####[place] [address] [place] [phone] Hematocrit Auto Volume Fraction (Bld) 34.4 % Low 36.0-46.0 [facility] Comment on above: Performed By: #### A BINTB ####[address] [phone] Hemoglobin mass conc (Bld) 11.2 g/dL Low 11.5-15.5 [facility] Comment on above: Performed By: #### A BINTB ####[place] [phone] Lymphocytes Auto #/vol (Bld) 0.79 10*3/uL Low 1.00- 4.00 [facility] Comment on above: Performed By: #### A BINTB ####[place] [phone] Lymphocytes/100 WBC Auto (Bld) 7.4 % Normal [facility] Comment on above: Performed By: #### A BINTB ####[place] [phone] MCH Auto Entitic mass (RBC) 29.0 pG Normal 26.0-34. 0 [facility] Comment on above: Performed By: #### A BINTB ####[place] [phone] MCHC Auto mass conc (RBC) 32.6 g/dL Normal 30.5-36.0 [facility] Comment on above: Performed By: #### A BINTB ####[address] [phone] MCV Auto Entitic volume (RBC) 89.1 fL Normal 80.0-1 00.0 [facility] Comment on above: Performed By: #### A BINTB ####[address] [phone] Monocytes/100 WBC Auto (Bld) 5.4 % Normal [facility] Comment on above: Performed By: #### A BINTB ####[place] [address] [place], [place] [phone] Neutrophils/100 WBC Auto (Bld) 87.2 % Normal [facility] Comment on above: Performed By: #### A BINTB ####[address] [phone] Platelet mean volume Auto En titic volume (Bld) 9.3 fL Normal 9.0-12.7 [facility] Comment on above: Performed By: #### A BINTB ####[address] [phone] Platelets Auto #/vol (Bld) 263 10*3/uL Normal 150-400 [facility] Comment on above: Performed By: #### A BINTB ####[address] [phone] RBC Auto #/vol (Bld) 3.86 10*6/uL Low 3.90-5.20 [facility] Comment on above: Performed By: #### A BINTB ####[address] [phone] WBC Auto #/vol (Bld) 10.69 10*3/uL Normal 3.70-11.00 [facility] Comment on above: Performed By: #### A BINTB ####[address] [phone] Confirm Blood Typeon 018 ABO/RH(D) Positive Normal [facility] Comment on above: Performed By: #### C ONABO ####[facility] [place], [place] [phone] HISTORY PHYSICALon 8 HISTORY PHYSICAL HNO ID: [id number] thor: Arsenio (Res) HaddadService: General SurgeryAuthor Type: ResidentType: HANDPFiled: 02/14/2018 9:58 PMNote Text:SICU HANDP NOTESERVICE DATE: 02/14/2018SERVICE TIME: 8:52 PMSubjectiveHPI: This is a 68 year old female who presents with paraesophageal hernia.She is S/P Laparoscopic converted to open paraesophageal hernia repair,Kimmy fundoplication, splenectomyPAST MEDICAL HISTORYDiagnosis Date- Anemia- BCC (basal cell carcinoma)- Depression- DVT (deep vein thrombosis) in (HCC) after childbirth 40+ years ago- GERD (gastroesophageal reflux disease)- Hiatal hernia- HTN (hypertension)- Hypercholesteremia- IBS (irritable bowel syndrome)- Monoclonal gammopathy of undetermined significance 01/25/2018- Uterine cancer (HCC)PAST SURGICAL HISTORYProcedure Laterality Date- HEMORRHOIDECTOMY- HYSTERECTOMY- REVISE ULNAR NERVE AT ELBOW- VEIN SURGERY (SPECIFY LOCATION) HXFAMILY HISTORYProblem Relation Age of Onset- other (lung cancer) Mother- Alzheimer's Disease Father- No Known Problems Sister- No Known Problems BrotherSocial HistorySubstance Use Topics- Smoking status: Never Smoker- Smokeless tobacco: Never Used- Alcohol use Yes Comment: one drink at the holidays at timesPRIOR TO ADMISSION MEDICATIONS @[email or web address] Reactions- Adhesive Tape (Shama* Rash- Cefuroxime Axetil GI Upset- Clindamycin Hcl IntoleranceSICU OP Course:Admission Weight:ObjectiveVITAL SIGNSTemp: 36.9 ?C (98.4 ?F) Pulse: 77 BP: 125/80 Resp: 18 SpO2: 96 %Portal Miriam Readings: Not applicableRESPIRATORYMechanical Ventilation: No. Supplemental Oxygen: Yes. 2 LRecent Labs 02/14/18181PO2 -- 148*PCO2 -- 36.1BE -- -1HCO3 -- 23.4LACT 2.79* --PHYSICAL EXAMNeuro: Awake, Follows commands and AlertPulmonary: Non labored breathingCardiovascular: Regular rhythmAbdomen: Soft and non distended, appropriately tenderExtremities: Edema- NoPresence of Pressure Ulcer NoCXR Findings: CXR personally viewed and interpreted by ICU NursePractitioner.Current Facility-Administered Medications:bupivacaine (PF) 0.25 % (2.5 mg/mL) injection (SENSORCAINE MPF) X(OR/PROCEDURE) PRNceFAZolin iv piggyback 2 g in D5W (iso-osmotic) 100 mL (ANCEF) X(OR/PROCEDURE) CONTINUOUSheparin injection X (OR/PROCEDURE) PRNlabetalol 5 mg injection syringe (NORMODYNE) 5 mg INTRAVENOUS q 4 H PRNRECENT LABSInvalid input(s): TRANSFERRIN, PTCULTURES:NADATA:Diagnostic tests reviewed for today's visit:Most recent labs and imaging results.Assessment/PlanThis is a 68 year old female who presents with paraesophageal hernia. Sheis S/P Laparoscopic converted to open paraesophageal hernia repair, Nissenfundoplication, splenectomyREASON FOR ICU ADMISSION: Post op monitoringSeen and discussed on rounds with SICU staff: Dr Villalpando: tylenol, dilaudidCV: monitorPulm: IS, Wean oxygen as toleratedRenal: Monito UOGI: NPO , ProtonixHeme: FU CBC , transfuse if neededFluid/Electrolyte/Nutrition: mIVF , replete electrolytes as neededID: NAMedication and Non-Pharmacologic VTE Prophylaxis/AnticoagulantsAnticoagulant AND Antiplatelet Medications Start Dose Route Frequency Ordered Stop 02/14/18 1450 heparin injection -- -- X (OR/PROCEDURE) PRN 02/14/18 1515 --VTE Prophylaxis: VTE prophylaxis appropriateSIGNATURE: Arsenio Lawler MD PATIENT NAME: Brenda BergmanTE: February 14, 2018 : 8:52 PM PAGER/CONTACT #: [phone] [facility] Magnesiumon 02-14-2018 Magnesium mass conc 1.4 mg/dL Low 1.7-2.6 [facility] Comment on above: Performed By: #### A BINTB ####[facility] [place] [place], [place] [phone] NURSING PROGon 02-14-2018 Protein mass conc HNO ID: [id number] Author: Juanita AlmarazRn) HERMINIO Broussard Service: Nursing Author Type: Registered Nurse Type: Nursing Progress Note Filed: 02/14/2018 6:12 PM Note Text: converted to open procedure at [address] [facility] OPERATIVE NOon 02-14-2018 OPERATIVE NO HNO ID: [id number] thor: Monica Rodriguez) AugustinService: General SurgeryAuthor Type: PhysicianType: Operative ReportFiled: 02/19/2018 3:10 PMNote Text:[facility] - Operative ReportBRENDA MCCLAIN LDOB: 8AGE: 68.SEX: FMRN: [id number] TYPE: IHOSP SVC: GENSLOCATION: [id number] PHYSICIAN: MADI Gamez NUMBER: [id number] OF SURGERY/PROCEDURE: 02/14/2018INCISION/PROCEDURE START TIME: 1511 hours.INCISION CLOSE/PROCEDURE END TIME: 8 hours.PREOPERATIVE DIAGNOSIS: Paraesophageal hernia.POSTOPERATIVE DIAGNOSIS: Paraesophageal hernia.SURGEON: Monica Garsia MDASSISTANT: Dr. Nataly Peña.SURGERY/PROCEDURE:1. Laparoscopic converted to open paraesophageal hernia repair.2. Lap splenectomy.3. Laparoscopic posterior hiatoplasty.4. Laparoscopic placement of BIO-A mesh.5. Open Kimmy fundoplication.6. EGD.ANESTHESIA: General endotracheal anesthesia.COMPLICATIONS: Spleen bleed. A bleed from the upper pole of the spleenrequiring conversion to open splenectomy.WOUND CLASS: A.INDICATION: The patient is a pleasant 68-year-old female with a largeparaesophageal hernia, who was noted to have quite significant symptomsfrom it. She had severe reflux and epigastric discomfort. The patientwas evaluated for surgery and was noted to be a good candidate. She didnot have any esophageal dysmotility on her preoperative evaluation. ANissen fundoplication was planned.OPERATIVE FINDINGS: An uncomplicated repair of paraesophageal hernia withposterior hiatoplasty and mesh placement was performed.The fundus of the stomach was noted to be quite adhesed to the superiorpole of the spleen with very short length of short gastric. Thesuperior pole splenic artery was noted to be very close to this. Wenoted significant hemorrhage while releasing the fundus and converted toopen for good control. Next, splenectomy was performed in an openfashion. Next, an open Kimmy fundoplication was completed.DESCRIPTION OF PROCEDURE: The patient was identified and brought to theoperating room, placed supine on the operating table. General anesthesiawas induced. The abdomen was prepped and draped in the usual sterilesurgical fashion. A 5-mm left upper quadrant incision was made. Entrywas gained to the abdomen using standard Optiview technique. Underdirect vision, a 12-mm port was placed in the left supraumbilical region. A 12-mm port was placed in the right midclavicular line periumbilically. A 5-mm port was placed in the right midclavicular linesubcostally. A 5-mm epigastric incision was made. The liver wasretracted. The patient was placed in steep head-up position. The parsflaccida was opened up. Dissection was carried down towards the ellen fromthe right side toward with the left side. The posterior retroesophagealwindow was developed. The entire sac was dissected out from themediastinum.A Desmond drain was passed around the esophagus. Further dissection wascontinued using the Harmonic scalpel. All the adhesions of the sac tothe mediastinum were completely lysed. 2 cm to 3 cm length ofesophagus was noted to be easily inside the abdomen. Next, weproceeded with laparoscopic closure of the posterior ellen. Multipleinterrupted thjena-tx-wbyrs stitches using silk was used to close thecrus. A BIO-A mesh was brought into the field. It was secured usingTisseel. Next, we proceeded with Kimmy fundoplication. A bougie waspassed into the stomach. It appeared that the fundus of the stomachneeded to be quite significantly lysed to allow a 360-degreefundoplication while taking the short gastrics from the superior pole of the spleen. Significant bleeding was noted. This could not becontrolled with clips. I quickly converted to open using a midlinelaparotomy going from the epigastrium to about the umbilicus.Dissection was carried down to the fascia, which was incised. Theabdominal wall was retracted. The abdomen was packed. Next,subsequently slowly the packs were removed. The superior pole wherethe bleeding was noted, the vessel was controlled between ties andtransected. This appeared to be a superior pole splenic artery. Thesplenic hilum was clamped using an Endo-HORTENCIA alfaro load and transected.The spleen was removed from the body. No evidence of any furtherbleeding was noted. The abdomen was irrigated. No evidence of anycomplications was noted. Next, we passed the 58-Mongolian bougie intothe stomach. A 360 degree wrap was planned. The fundus was broughtposterior to the esophagus from the left to the right side. Threesutures were used to complete the Kimmy fundoplication using 2-0 silk. The top suture was used to incorporate the esophagus. Next, theabdomen was inspected. No evidence of any bleeding or othercomplications noted. The sponge count was noted to be correct.Instrument had not been counted due to rapid conversion to open. Afinal x-ray noted no evidence of any intraabdominal foreign bodies.The abdomen was closed using continuous running PDS starting bothsuperiorly and inferiorly and tying the knot towards the middle. Theskin was closed in 2 layers using 3-0 Vicryl and 4-0 Monocryl.I was present and scrubbed in throughout the operation. The patient wastransferred to the ICU in a stable condition. The final x-ray wasnoted to be without any evidence of any burning.Monica Garsia MDTA:[id number] #: [id number]: 02/14/2018 20:43:04 [facility] PT EDon 02-14-2018 PT ED HNO ID: [id number] thor: Haven (Rn) TRUDY Famervice: (none)Author Type: Registered NurseType: Patient EducationFiled: 02/14/2018 12:36 PMNote Text:PATIENT EDUCATION TOPIC: PROCEDURE / SURGERY: Pre-op Teaching:ProtocolsPATIENT NAME: Brenda Angela McclainN: [id number] [place] TO LEARNCOGNITIVE ABILITY: Alert and orientedMOTIVATION TO LEARN: EagerFAMILY SUPPORT: None - Unavailable/disinterestedINSTRUCTION PROVIDED TO: PatientPATIENT LEARNS BEST BY: Individual InstructionFACTORS AFFECTING LEARNING: NonePHYSICAL LIMITATIONS AFFECTING LEARNING: NoneLEARNING RESPONSEDIAGNOSIS: ADULT: Well AdultPATIENT/FAMILY RESPONSE: Verbalizes understanding of: LRA-[id number]-Svdjxyc action to take to follow pre-operative instructionsMETHOD OF INSTRUCTION: Individual instructionFOLLOW-UP PLAN: Complete - No need for follow-upPatient instructed to call with any further issuesINSTRUCTIONAL AIDS USED: NASUPPLEMENTAL MATERIAL PROVIDED TO PATIENT: NoneREFERRAL (RECOMMENDATION): NoneElectronically Signed By: Haven Fam, HERMINIO Normal [facility] Phosphoruson 02-14-2018 Phosphate mass conc 3.2 mg/dL Normal 2.5-4.5 [facility] Comment on above: Performed By: #### A BINTB ####[facility] [place] [place], [place] [phone] Protimeon 02-14-2018 INR Coag RelTime (Bld) 1.1 {INR} Normal 0.9-1.3 [facility] Comment on above: Result Comment: Danni min K Antagonist (VKA) Therapeutic Range: INR 2 to 3 (Target INR of 2.5)Note: For patients treated with VKA drugs, such as warfarin, the [employer] 2012 Guideline recommends a therapeutic INR range of 2 to 3 (target INR of 2.5). This recommendation includes high-risk patients with antiphospholipid syndrome with previous arterial or venous thromboembolism, current-generation mechanical or bioprosthetic aortic heart valve replacement.Note: Patients with mechanical aortic valve replacement and additional risk factors for thromboembolic events (atrial fibrillation, previous thromboembolism, LV dysfunction, hypercoagulable conditions) or an older generation mechanical AVR (i.e., ball in-Cage) or any mechanical MVR should have a INR therapeutic range of 2.5 to 3.5 (target INR of 3).Nancy ROACH, et al. Chest 2012, 141:7S-47SMelonie RA, et al. [facility] 2017, 70: 252-289 Performed By: #### A BINTB ####[facility] [place] [place], [place] [phone] PT Sec 11.3 sec Normal 9.7-13.0 [facility] Comment on above: Performed By: #### A BINTB ####[facility] [place] [place], [place] [phone] SURGICAL PATHOLOGYon 018 SURGICAL PATHOLOGY [facility] alSpecimen #: [id number] Physician: MONICA GARSIA MD JUANCARLOS L DIAGNOSISSpleen, resection:- Benign-appearing spleen with focal granuloma formation.- Special stains (AFB, GMS) negative for organisms. - See comment. EDH/srj 02/16/2018 COMMENTThe history of paraesophageal hernia repair is noted. Immunostains forkappa and lambda show polytypic plasma cells. There is no evidence ofmalignancy. Correlation with the clinical findings is suggested. Laboratory Developed Test (LDT) Disclaimer:Positive and negative controls stain appropriately. Performancecharacteristics of immunohistochemical, immunofluorescent and chromogenicin-situ hybridization tests have been determined by [facility] [place] (-[facility]) patti manner consistent with CLIA requirements. One or more of these tests havenot been cleared or approved by the FDA. RT-[facility] is regulated under CLIA asqualified to perform high-complexity testing. These tests are used forclinical purposes. They should not be regarded as investigational or forresearch. ED/srj 02/16/2018 Trevin Moraes M.D.(Electronic Signature) SPE CIMEN SUBMITTEDA: SPLEEN CLINICAL DATAPARAESOPHAGEAL HERNIA GROSS DESCRIPTIONA. Received fresh designated spleen is a spleen that measures 9.2 x 6.0 x3.1 cm and weighs 124 grams. The splenic capsule is blue-gr. A capsulartear with associated subcapsular and parenchymal hemorrhage is presentmeasuring 7.0 x 2.5 cm. The cut surface of the spleen is dark red andslightly granular. Taxi Cab [employer] sections are submitted in two cassettes. WE/rosi 02/15/2018 Gross examination performed at [facility], [address] [address]Patient ID #: [id number] of Report: 02/19/2018Date of Procedure: 02/14/2018Date of Receipt: 02/15/2018Submitted by: MONICA GARSIA MDLocation: [id number] interpretation performed at [facility], [address] [place] [id number]. Normal [facility] Comment on above: Performed By: #### C ONABO ####[facility] [place], [place] [phone] XR ABDOMEN 1V SUPINEon 02-14 XR ABDOMEN 1V SUPINE * * *Final Report* * *DATE OF EXAM: Feb 14 2018 7:14PM FVX [id number] - XR ABDOMEN 1V SUPINE / REASON: instrument count * * * * Physician Interpretation * * * * XR ABDOMEN 1V SUPINECLINICAL INDICATION: instrument countCOMPARISON: NoneRESULT:No radiopaque instruments are identified. Enteric tube tip coursing to the midline upper abdomen, likely within the gastric body. Subcutaneous emphysema and possible free intraperitoneal air from the intervention. Likely retained enteric contrast within distal colonic diverticuli in the pelvis.IMPRESSION:No radiopaque foreign body seen.CRITICAL TEST/RESULTS: Communicated with Dr. Garsia on 02/14/2018 at 1916 hours.END OF IMPRESSIONTranscriptionist: JEYSON Transcribe Date/Time: Feb 14 2018 7:14PDictated by : ASHWIN HERNANDEZ MDThis examination was interpreted and the report reviewed and electronically signed by: ASHWIN HERNANDEZ MD on Feb 14 2018 7:16PM [id number] Invalid Interpretation Code [facility] NURSING PROGon 02-08-2018 Protein mass conc HNO ID: [id number]: Chichi (Rn) TRUDY Hoodervice: General SurgeryAuthor Type: Registered NurseType: Nursing Progress NoteFiled: 02/08/2018 11:06 AMNote Text:PACC Nurse Progress NoteHistory AND Physical:PACC Visit Date: 20-8-43Lccesmyx HANDP Date: N/AED visit Date: N/AOutside HANDP Scanned Date: N/ALabs Within Last 6 Months:CBC: Date 01-25-18BMP/CMP: Date 01-25-18TYPE AND SCREEN: Date 27-1-39Pcgzou acceptable limits, results in EPICImaging Within Last 12 Months:Chest X-ray 7-60-09Dyaqngr scanned in EPIC 89-41-63Amutovj Testing:EKG in last 12 Months: Yes: Date: 01-25-18, Comment: Confirmed in EPICLast Menstrual Period:LMP Date: Not recordedPostmenopausal >1yr: Yes,S/P Hysterectomy: YesBMI Percentile (PEDS):N/ARisk Assessment:N/AAnesthesia Review:N/ANarrative:N/APre-op Considerations:Per HANDP:Paraesophageal herniaGastroesophageal reflux disease, esophagitis presence not specifiedAnemia, unspecified type: MISAEL, receives iron infusions.Essential hypertensionHypercholesteremiarritable bowel syndrome, unspecified typeMonoclonal gammopathy of undetermined significanceL stable per heme notein CERemote history DVT: 40 + years ago after childbirthChart Check:Beulah Crowe 2017 11:04 AM [facility] RBC Antibody Interp (Lab Ord ered)on 01-25-2018 Antibody Interp (NOTE) [facility] Comment on above: Result Comment: Anti -E and anti-K, clinically significant alloantibodies againstcorresponding Rh and [place] blood group system antigens, respectivelyare identified.Approximately 63% of donor units will be negative for the E and Kantigens. When possible please allow a minimum of 4 hours forpretransfusion and compatibility testing. Performed By: #### A BINTB ####[facility] [place] [place], [place] [phone] Physician Review Signed by Cynthia Dorman MD ([id number]) [facility] Comment on above: Performed By: #### A BINTB ####[facility] [place] [place], [place] [phone] Type and SCR (30D)on 018 ABO/RH(D) Positive [facility] Comment on above: Performed By: #### T SCR30 ####[facility] [place], [place] [phone] Antibody Identified Normal [facility] Comment on above: Result Comment: ANTI -K PRESENT.ANTI-E PRESENT. Performed By: #### T SCR30 ####[facility] [place], [place] [phone] HOSPon 01-18-2018 HOSP Patient:Brenda Mcclain LMRN: Height:5' 3.5 (1.613 m)Weight:175 lb 3.2 oz (79.47 kg)Outpatient Medications as of 02/14/18:atorvastatin (LIPITOR) 10 mg tabletcelecoxib (CELEBREX) 200 mg capsulecitalopram hydrobromide(CELEXA 20 MG TAB)cyclobenzaprine (FLEXERIL) 10 mg tabletdicyclomine hcl(BENTYL 10 MG CAP)diphenhydrAMINE (BENADRYL) 25 mg capsuledocusate sodium (COLACE) 100 mg capsuleeletriptan hydrobromide(RELPAX 40 MG TAB)Hydrochlorothiazide 12.5 mg capsuleibuprofen (ADVIL) 200 mg tabletirbesartan (AVAPRO) 150 mg tabletloratadine 10 mg capOmeprazole 40 mg capsulepolyethylene glycol 3350 (MIRALAX, GLYCOLAX) 17 gram packetPROAIR HFA 90 mcg/actuation inhalerAdmission/Clinic Administered Medications as of 02/14/18:Patient has no admission medications.Problem List:Paraesophageal hernia [K44.9]Anemia [D64.9]HTN (hypertension) [I10]Hypercholesteremia [E78.00]IBS (irritable bowel syndrome) [K58.9]Monoclonal gammopathy of undetermined significance [D47.2]Allergies:Adhesive Tape (Rosins)Cefuroxime AxetilClindamycin HclDate Verified: 02/14/18Lab ValuesLab Value Units Date High LowPOTA* 3.9 mmol/L 01/25/2018 5.1 3.7HEMA* 36.3 % 01/25/2018 46.0 36.0Progress Notes ([facility]):Tello Mckeon RN 02/02/2018 12:25 PM SignedCall to patient to at [phone] to reschedule surgery date.Received VM. Contact number provided for return call.New date of surgery 02/14/2018Procedure: Laparoscopic PEH repairTello Mckeon RN 02/02/2018 2:05 PM SignedReceived return call from patient.Accepted new date of surgery.Will edit [facility] paperwork to reflect new date of surgery.Progress Notes ([address]):Monica Garsia MD 01/21/2018 4:17 PM SignedAssessmentNEW FOREGUT PATIENTPATIENT NAME: Brenda McclainMRN: [id number] FOR CONSULT: Paraesophageal herniaREQUESTING PHYSICIAN: NAZIA TesfayeATE of SERVICE: 01/16/2018TIME of SERVICE: 6:08 PMPCP: Pam Villalobos [facility] Complaint: Abdominal pain, refluxHistory of present illness:Brenda Mcclain is a 68 year old female, patient of aPm Villalobos MD,referred to me by Dr. Owen for a paraesophageal hernia.. EGD 11/17/2017 by noted hiatal hernia 10cm and Schatzki ring esophogram 11/20/2017 ([facility])Difficulty swallowing / foods sticking in throat:NoHeartburn: YesChronic cough: YesRegurgitation: Yes, fluidsChest pain: Yes, but related to Schotzki's ringFilling up quickly at meals:YesLoss of appetite:NoNausea: NoVomiting: NoAbdominal pain:Yes, primarily LUQ just above costal marginRecent change in weight:NoDysphagia:YesPAST MEDICAL HISTORY:PAST MEDICAL HISTORYDiagnosis Date- Anemia- Depression- GERD (gastroesophageal reflux disease)- Hiatal hernia- HTN (hypertension)- Hypercholesteremia- IBS (irritable bowel syndrome)PAST SURGICAL HISTORY: No past surgical history on file.FAMILY HISTORY: No family history on file. No pertinent family historySOCIAL HISTORY:Social HistorySubstance Use Topics- Smoking status: Never Smoker- Smokeless tobacco: Not on file- Alcohol use Not on fileCOMPLETE REVIEW OF SYSTEMSConstitutional--Negative for fevers, chills, fatigue, unintentional weight lossCardiovascular--Negative for orthopnea, PNDGastrointestinal--See HPIPulmonary--Negative for intermittent dyspnea cough or hemoptysisGU: No history of dysuria, frequency or incontinenceA 10 point review of systems was otherwise negativePHYSICAL EXAMINATION:BP 154/102 Pulse 80 Temp 36.6 ?C (97.9 ?F) (Oral) Resp 18 Ht 161.3cm (5' 3.5 ) Wt 82.8 kg (182 lb 9.6 oz) SpO2 98% BMI 31.84 kg/m?General appearance: Well appearing, alert, in no acute distress, well-hydrated,well nourished.Psych: Appropriate affect, alert and oriented to person, place and timeSkin: Skin color, texture, turgor normal, no suspicious rashes or lesionsHead: Normocephalic, no masses, lesions, tenderness or abnormalitiesEyes: Anicteric sclera. Pupils are equally round. Extraocular movements areintact.Oropharynx: Lips, mucosa, and tongue normal, teeth and gums normal, oropharynxnormalNeck: Supple, no adenopathy; thyroid symmetric, normal sizeLungs: Lungs clear to auscultation. No wheezing, rhonchi, ralesHeart: Regular rate and rhythm.Abdomen: Abdomen soft, non-tender. No masses, organomegalyExtremities: No deformities, Good capillary refill.Musculoskeletal: Muscular strength intact, No joint swelling, deformity, ortendernessPeripheral pulses: Normal radial pulseNeuro: Gait normal. Sensation grossly intact.Results of testing:EGD: Distal esophageal Schatzki ring, Large hiatal hernia, 10 cm. Normal gastricmucosa. Normal duodenal mucosa.Upper GI: Large paraesophageal herniaPH probe: NoneManometry: Was apparently performed, patient tells me that she did not have anyesophageal dysmotility, we will obtain the reportCT: NoneImpression:Paraesophageal herniaPlan:Brenda Mcclain is a very pleasant 68 year old female, primary carephysician Pam Villalobos MD, referred to me by Dr. Owen. Patient has multiplesymptoms that are related to this hernia including severe reflux, chestdiscomfort with eating, early fullness, epigastric pain and sometimes dysphagia.She notes food gets stuck in her chest after eating. She does not have anysignificant weight loss. She has been able to accommodate all her symptoms byeating multiple times and small meals a day. Finally she has also had anemia ofunclear etiology. She has not been transfused recently. Her appetite ispreserved. She does not have any other constitutional symptoms or GI symptomsincluding diarrhea, hematemesis, melena. Her physical examination today isunremarkable. She does not smoke or take alcohol on a regular basis. Onexamination she does not have scleral icterus, peripheral edema, pallor orabdominal tenderness. Her BMI is 31I have multiple reports that I was able to review. Her is a 5 mg notes a largeparaesophageal hernia. This is confirmed on her EGD. She is apparently had amanometry that nodes no esophageal dysmotility, I do not have this report yet.Patient is interested in proceeding with upper scopic repair of paraesophagealhernia. Her other option would be continued observation she does not want to do.I have discussed with the patient regarding a laparoscopic possible openparaesophageal hernia repair with cruroplasty with mesh, possiblefundoplication, and possible gastropexy and intraoperative endoscopy. I havediscussed with the patient specifically the risks benefits and alternatives tosurgery. The risks that I discussed include intraoperative risks includinginjury to the esophagus, injury to stomach or spleen requiring conversion toopen, injury to blood vessels causing significant blood loss, injury to lungwith pneumothorax. I have discussed postoperative complications including leaks,undergone to the operating room, pneumothorax, cardiac complications includingatrial fibrillation. I have also discussed long-term complications includingrecurrence of the hernia which has a high statistical chance, postoperativedysphagia, possible re herniation of the wrap, and recurrence of symptoms.The patient expressed understanding of the information conveyed. This officenote will be sent to the referring provider via electronic medical record and [employer].Monica Garsia, MDPrevious Version Normal [facility] Vital Signs Date Time Vital Sign Value Performing Clinician Facility 08-18-2022 14: Body height 161.3 cm Sanjay Adkins MD Work Phone: [facility] 08-18-2022 14:040 Body temperature 97.11 [degF] Sanjay Adkins MD Work Phone: [facility] 08-18-2022 14:26-0400 Body weight 82.46 kg Sanjay Adkins MD Work Phone: [facility] 08-18-2022 14:26-0400 Diastolic blood pressure 77 mm[Hg] Sanjay Adkins MD Work Phone: [facility] 08-18-2022 14:26-0400 Heart rate 78 /min Sanjay Adkins MD Work Phone: [facility] 08-18-2022 14:26-0400 Respiratory rate 16 /min Sanjay Adkins MD Work Phone: [facility] 08-18-2022 14:26-0400 SaO2% (BldA) [Mass fraction] 100 % Sanjay Adkins MD Work Phone: [facility] 08-18-2022 14:26-0400 Systolic blood pressure 117 mm[Hg] Sanjay Adkins MD Work Phone: [facility] 08-19-2021 14:12-0400 Body height 161.3 cm Sanjay Adkins MD Work Phone: [facility] 08-19-2021 14:12-0400 Body temperature 98.6 [degF] Sanjay Adkins MD Work Phone: [facility] 08-19-2021 14:12-0400 Body weight 79.83 kg Sanjay Adkins MD Work Phone: [facility] 08-19-2021 14:12-0400 Diastolic blood pressure 83 mm[Hg] Sanjay Adkins MD Work Phone: [facility] 08-19-2021 14:12-0400 Heart rate 91 /min Sanjay Adkins MD Work Phone: [facility] 08-19-2021 14:12-0400 Respiratory rate 16 /min Sanjay Adkins MD Work Phone: [facility] 08-19-2021 14:12-0400 SaO2% (BldA) [Mass fraction] 96 % Sanjay Adkins MD Work Phone: [facility] 08-19-2021 14:12-0400 Systolic blood pressure 133 mm[Hg] Sanjay Adkins MD Work Phone: [facility] 07-29-2021 08:45-0400 Blood Pressure Location [facility]an [facility] 07-29-2021 08:45-0400 Diastolic blood pressure 98 mm[Hg] [facility] SAL[facility] 07-29-2021 08:45-0400 Heart rate 66 /min Guan SALAM [facility] 07-29-2021 08:45-0400 Respiratory rate 23 /min Guan SALAM [facility] 07-29-2021 08:45-0400 SaO2% (BldA) [Mass fraction] 96 % Guan SALAM [facility] 07-29-2021 08:45-0400 Systolic blood pressure 146 mm[Hg] Guan SALAM [facility] 07-29-2021 08:35-0400 Blood Pressure Location [facility] 07-29-2021 08:35-0400 Diastolic blood pressure 97 mm[Hg] [facility] SAL[facility] 07-29-2021 08:35-0400 Heart rate 71 /min Guan SALAM [facility] 07-29-2021 08:35-0400 Respiratory rate 14 /min Guan SALAM [facility] 07-29-2021 08:35-0400 SaO2% (BldA) [Mass fraction] 97 % Guan SALAM [facility] 07-29-2021 08:35-0400 Systolic blood pressure 147 mm[Hg] Guan SALAM [facility] 07-29-2021 08:30-0400 Blood Pressure Location [facility]an SAL[facility] 07-29-2021 08:30-0400 Diastolic blood pressure 105 mm[Hg] Guan SALAM [facility] 07-29-2021 08:30-0400 Heart rate 67 /min Guan SALAM [facility] 07-29-2021 08:30-0400 Respiratory rate 14 /min Guan SALAM [facility] 07-29-2021 08:30-0400 SaO2% (BldA) [Mass fraction] 96 % Guan SALAM [facility] 07-29-2021 08:30-0400 Systolic blood pressure 140 mm[Hg] Guan SALAM [facility] 07-29-2021 08:20-0400 Body temperature 98.06 [degF] Guan SALAM [facility] 07-29-2021 08:14-0400 Respiratory rate 18 /min Guan SALAM [facility] 07-29-2021 08:00-0400 Respiratory rate 1 /min Guan SALAM [facility] 07-29-2021 07:50-0400 Respiratory rate 6 /min Guan SALAM [facility] 07-29-2021 07:12-0400 Body temperature 97.7 [degF] Guan SALAM [facility] 06-09-2021 10:29-0400 Diastolic blood pressure 91 mm[Hg] Ugan SALAM [facility] 06-09-2021 10:29-0400 Heart rate 76 /min Guanlen OWEN [facility] 06-09-2021 10:29-0400 Systolic blood pressure 148 mm[Hg] Roge OWEN [facility] Encounters Encounter Date Encounter Type Care Provider Facility Start: 01-16-2023 End: 01-16-2023 ambulatory PAM VILLALOBOS Not Available Start: 2023 End: 2023 Emergency department patient visit [place] Moon Facility:[facility] Start: 08-24-2022 End: 08-25-2022 ambulatory Kamron Villalobos Facility:[facility] Start: 08-24-2022 End: 08-24-2022 Patient encounter procedure Kamron Villalobos [facility] Start: 08-18-2022 End: 08-18-2022 ambulatory PAM VILLALOBOS Facility:[facility] Start: 08-18-2022 End: 08-18-2022 ambulatory Sanjay Adkins MD Work Phone: Hematology/Oncology Comment on above: 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); History of iron deficiency Start: 08-18-2022 End: 08-18-2022 Patient encounter procedure Sanjay Adkins MD Work Phone: [facility] Start: 05-18-2022 End: 05-19-2022 ambulatory SELF REFERRAL Facility:[facility] Start: 05-18-2022 End: 05-18-2022 Patient encounter procedure SELF REFERRAL [facility] Start: 12-17-2021 End: 12-17-2021 Patient encounter procedure Pam Villalobos [facility] Start: 08-26-2021 Telephone encounter Tello Mak RN Hematology/Oncology Comment on above: Results Start: 08-20-2021 Telephone encounter Tello Chairez RN Hematology/Oncology Comment on above: Results Start: 08-19-2021 End: 08-19-2021 ambulatory Sanjay Adkins MD Work Phone: Hematology/Oncology Comment on above: Iron deficiency anem ia due to chronic blood loss (Primary Dx); Paraesophageal hernia; Monoclonal gammopathy of undetermined significance Start: 08-19-2021 End: 08-19-2021 Patient encounter procedure Sanjay Adkins MD Work Phone: [facility] Start: 08-18-2021 End: 08-18-2021 Patient encounter procedure JOHANNE LINDSAY [facility] Start: 07-29-2021 End: 07-29-[address] [facility] Start: 06-09-2021 End: 06-09-2021 Patient encounter procedure Guan SALAM [facility] Start: 02-15-2021 End: 05-18-2021 Patient encounter procedure Pam Villalobos [facility] Start: 02-14-2018 End: 02-17-2018 Evaluation and management of inpatient MONICA RODRIGUEZ) [facility] Procedures Date Procedure Procedure Detail Performing Clinician Start: 07-29-2021 Esophagogastroduodenoscopy Roge OWEN Start: 10-29-2019 Total knee replacement Pam Villalobos Comment on above: ROBOT ASSISTED Start: 09-30-2019 Cataract extraction and insertion of intraocular lens Pam Villalobos Comment on above: CATARACT EXTRACTION W/ INTRAOCULAR LENS IMPLANTATION Start: 09-02-2019 Cataract extraction and insertion of intraocular lens Pam Villalobos Comment on above: right Start: 08-16-2019 Adult depression scr eening assessment Sanjay Adkins MD Work Phone: Start: 01-25-2018 Antibody screen MONICA SOTOMAYOR Comment on above: Performed By: #### T [id number] ####[id number] [place], [place] [phone] Colonoscopy Pam Villalobos Elbow region structure (body structure) Pam Villalobos Esophageal hiatus hernia repair Pam Villalobos Esophagogastroduodenoscopy P eter Wilfredo Hemorrhoids (disorder) Pam Villalobos Hysterectomy Pam Villalobos knee scope Pam Villalobos Operation on spleen Pam west Plan of Treatment Date Care Activity Detail Author Start: 08-18-2025 DIABETES SCREEN DIABETES SCREEN [facility] Start: 08-19-2024 DIABETES SCREEN DIABETES SCREEN [facility] Start: 08-19-2023 BP CONTROLLED (<130/80) BP CONTROLLED (<130/80) [facility] Start: 04-16-2023 MENINGOCOCCAL CONJUGATE (3 - Risk 2-dose series) MENINGOCOCCAL CONJUGATE (3 - Risk 2-dose series) [facility] Start: 08-18-2022 End: 10-18-2022 MONOCLONAL PROTEIN, SERUM (BLOOD) [facility] Work Phone: Comment on above: Expected: 08/18/2022 , Expires: 10/18/2022 Start: 08-18-2022 End: 10-18-2022 PROT ELECT SERUM WITH DARÍO AND INTERP [facility] Work Phone: Comment on above: Expected: 08/18/2022 , Expires: 10/18/2022 Start: 02-20-2022 ADVANCE DIRECTIVE DISCUSSION ADVANCE DIRECTIVE DISCUSSION [facility] Start: 02-20-2022 DEPRESSION ASSESSMENT DEPRESSION ASS ESSMENT [facility] Start: 10-21-2021 Influenza vaccination INFLUENZA (#1) [facility] Start: 08-19-2021 End: 10-19-2021 Ferritin [Mass/volume] in Serum or Plasma [facility] Work Phone: Comment on above: Expected: 08/19/2021 , Expires: 10/19/2021 Start: 08-19-2021 End: 10-19-2021 Iron and Iron binding capacity panel - Serum or Plasma [facility] Work Phone: Comment on above: Expected: 08/19/2021 , Expires: 10/19/2021 Start: 03-30-2021 COVID-19 VACCINE (4 - Booster for Pfizer series) COVID-19 VACCINE (4 - Booster for Pfizer series) [facility] Start: 02-20-2021 ADVANCE DIRECTIVE DISCUSSION ADVANCE DIRECTIVE DISCUSSION [facility] Start: 08-15-2020 Adult depression screening assessment DEPRESSION SCREENING [facility] Start: 04-16-2019 PNEUMOCOCCAL: 65+ (3 - PCV) PNEUMOCOCCAL: 65+ (3 - PCV) [facility] Start: 07-31-2013 SHINGRIX VACCINE (1 of 2) SHINGRIX V ACCINE (1 of 2) [facility] Start: 01-07-2013 BONE DENSITY BONE DENSITY [facility] Start: 01-07-1993 COLOGUARD (FIT-DNA) COLOGUARD (FIT-D NA) [facility] Start: 01-07-1993 Colonoscopy COLONOSCOPY [facility] Start: 01-07-1993 COLORECTAL CANCER SCREENING COLORECTAL CANCER SCREENING [facility] Start: 01-07-[address] COLONOGRAPHY [facility] Start: 01-07-1993 FECAL OCCULT BLOOD FECAL OCCULT BLOO D [facility] Start: 01-07-1993 LIPID SCREEN LIPID SCREEN [facility] Start: 01-07-1993 SIGMOIDOSCOPY SIGMOIDOSCOPY [facility] Start: 1988 Mammography MAMMOGRAM [facility] Start: 01-07-1967 Urine microalbumin profile DTAP,TDAP,TD (1 - Tdap) [facility] Start: 01-07-1966 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 Immunizations Immunization Date Immunization Notes Care Provider Fa cili 04-16-2020 COVID-19 vaccine, ag e 12+ yr (PFIZER-BIONTECH - PURPLE TOP) Sanjay Adkins MD Work Phone: [facility] 03-27-2020 COVID-19 vaccine, ag e 12+ yr (PFIZER-BIONTECH - PURPLE TOP) Sanjay Adkins MD Work Phone: [facility] 04-16-2018 meningococcal polysaccharide (groups A, C, Y and W-135) diphtheria toxoid conjugate vaccine (MCV4P) Sanjay Adkins MD Work Phone: [facility] 04-16-2018 pneumococcal polysaccharide vaccine, 23 valent Sanjay Adkins MD Work Phone: [facility] 02-17-2018 haemophilus influenz ae type b vaccine, PRP-T conjugate Sanjay Adkins MD Work Phone: [facility] 02-17-2018 influenza, high dose seasonal, preservative-free Sanjay Adkins MD Work Phone: [facility] 02-17-2018 meningococcal polysaccharide (groups A, C, Y and W-135) diphtheria toxoid conjugate vaccine (MCV4P) Sanjay Adkins MD Work Phone: [facility] 02-17-2018 pneumococcal polysaccharide vaccine, 23 valent Sanjay Adkins MD Work Phone: [facility] 06-05-2013 zoster vaccine, live Sanjay gibson MD Work Phone: [facility] 02-18-2009 novel influenza-H1N1 -09, preservative-free, injectable Sanjay Adkins MD Work Phone: [facility] Payers Date Payer Category Payer Medicare [id number] 2018 Unknown VANDANA ROSS ME DICARE SUPPLEMENT [id number] 2018-Present [phone] [address] [place] [id number] Indemnity [id number] 2018 Unknown VANDANA ROSS ME DICARE SUPPLEMENT [id number] 2018-Present [phone] [address] [place] [id number] Indemnity [id number] 2012 Medicare MEDICARE MEDICAR E A AND B [id number] 2012-Present [phone] [place] [address] Medicare [id number] 2012 Medicare MEDICARE MEDICAR E A AND B [id number] 2012-Present [phone] [place] [address] Medicare [id number] 2012 Medicare [id number] 1948 Unknown [id number] 1948 Unknown [id number] 1948 Unknown [id number] 1948 Unknown [id number] Social History Date Type Detail Facility Start: 01-07-2020 End: 06-09-2021 Tobacco smoking status Never smoked tobacco (finding) [facility] Sex Assigned At Female [facility] Start: 08-19-2021 End: 08-18-2022 Alcohol intake Current drinker of alcohol (finding) [facility] Start: 01-25-2018 History SDOH Alcohol Comment one drink at the holidays at times [facility] Start: 1950 Sex Assigned At Female [facility] Start: 08-09-2021 End: 08-19-2021 Exposure to SARS-CoV-2 (event) Not sure [facility] Start: 08-18-2022 Tobacco use and exposure Smokeless tobacco non-user [facility] NEGATED: Highlighted rowStart: NINF History of tobacco use Passive smoker [facility] Medical Equipment Procedure Code Equipment Code Equipment Origin al Text Equipment Identifier Dates [id number] FDA Start: 09-02-2019 {[id number] FDA Start: 09-30-2019 {[id number] FDA Start: 10-29-2019 Mesh Bio-A Synth etic 10x7cm Surgical Reinforcement Hernia Repair - [id number] Start: 02-14-2018 Clinical Notes 07-29-2021 to 08-18-2022 Sanjay Adkins MD - 08/18/2022 7:57 AM EDTTelephone Encounter - Tello Mak RN - 08/26/2021 3:32 PM EDTTelephone Encounter - Tello Mak RN - 08/26/2021 3:30 PM EDT Note Date & Type Note Facility 08-18-2022 Note HNO ID: [id number] Author: Sanjay Adkins MD Service: ? Author Type: Physician Type: Progress Notes Filed: 08/19/2022 9:47 AM Note Text: PATIENT NAME: Brenda Mcclain DATE: 08/18/2022 PRIMARY CARE PHYSICIAN: Dr. Pam Villalobos OTHER PHYSICIANS: Dr. Garsia, Dr. Villalobos, Dr. Giordano Portions of this encounter note have been copied from my note from 08/19/2021 and has been updated where appropriate, and reflect my current medical decision making from today. CC: This is a 72 year old female with a history of iron deficiency anemia and MGUS, seen for scheduled follow-up. INTERIM HISTORY: Since the patient's last visit here she has been receiving Botox injections to her left facial area for her facial twitch. She has had no other neurological symptoms. On current medications she has had no GI symptoms. She denies any evidence of blood loss. No unusual pain. Overall the patient feels quite well today with no particular complaints. MEDICATIONS: omeprazole (PRILOSEC) 40 mg capsule Take 40 mg by mouth once daily. OXcarbazepine (TRILEPTAL) 300 mg tablet Take 300 mg by mouth twice daily. meloxicam (MOBIC) 15 mg tablet Take 15 mg by mouth. losartan (COZAAR) 100 mg tablet (Patient not taking: Reported on 08/19/2021 ) polyethylene glycol 3350 (MIRALAX, GLYCOLAX) 17 gram packet Take 17 g by mouth as needed. (Patient not taking: Reported on 08/19/2021 ) docusate sodium (COLACE) 100 mg capsule Take 100 mg by mouth as needed. (Patient not taking: Reported on 08/19/2021 ) diphenhydrAMINE (BENADRYL) 25 mg capsule Take 25 mg by mouth every 6 hours as needed. loratadine 10 mg cap Take by mouth as needed. atorvastatin (LIPITOR) 10 mg tablet Take 10 mg by mouth once daily. PROAIR HFA 90 mcg/actuation inhaler use 2 (TWO) puffs EVERY 4 HOURS NEEDED Hydrochlorothiazide 12.5 mg capsule Take 25 mg by mouth once daily. citalopram hydrobromide(CELEXA 20 MG TAB) Take one(1) tablet daily at bedtime. dicyclomine hcl(BENTYL 10 MG CAP) Take one(1) tablet daily as needed. eletriptan hydrobromide(RELPAX 40 MG TAB) Take one(1) tablet daily as needed. (Patient not taking: Take one(1) tablet daily as needed.) ALLERGIES: Adhesive Tape (Rosins), Cefuroxime Axetil, and Clindamycin Hcl PAST MEDICAL HISTORY: PAST MEDICAL HISTORY Diagnosis Date Anemia BCC (basal cell carcinoma) Depression DVT (deep vein thrombosis) in after childbirth 40+ years ago GERD (gastroesophageal reflux disease) Hiatal hernia HTN (hypertension) Hypercholesteremia IBS (irritable bowel syndrome) Monoclonal gammopathy of undetermined significance 01/25/2018 Uterine cancer (HCC) PAST SURGICAL HISTORY: PAST SURGICAL HISTORY Procedure Laterality Date HEMORRHOIDECTOMY HYSTERECTOMY LAPAROSCOPIC SPLENECTOMY 02/14/2018 NEUROPLASTY AND/TRANSPOSITION ULNAR NERVE ELBOW KIMMY HX 02/14/2018 POST-CATARACT LASER SURGERY Bilateral REPAIR PARAESOPHAGEAL HERNIA 02/14/2018 lap converted to open TOTAL KNEE REPLACEMENT Left 10/29/2019 VEIN SURGERY (SPECIFY LOCATION) HX REVIEW OF SYSTEMS: General: No weight loss, malaise or fevers. HEENT: Negative for frequent or significant headaches. No changes in hearing or vision, no nose bleeds or other nasal problems. Respiratory: Negative for cough, wheezing or shortness of breath. Cardio: Negative for chest pain, leg swelling or palpitations. GI: Negative for abdominal discomfort, blood in stools or black stools or change in bowel habits. : No history of dysuria, frequency or incontinence. Musculoskeletal: Negative for: joint pain or swelling, back pain and muscle pain. Skin: Negative for lesions, rash and itching. Hematology/Lymphology: Negative for prolonged bleeding, bruising easily or swollen nodes. Neuro: No history of headaches, syncope, paralysis, seizures or tremors. PHYSICAL EXAM: Vitals: BP 117/77 Pulse 78 Temp 36.2 ?C (97.1 ?F) (Temporal) Resp 16 Ht 161.3 cm (5' 3.5 ) Wt 82.5 kg (181 lb 12.8 oz) SpO2 100% BMI 31.70 kg/m? Exam limited to gross visualization where appropriate due to COVID-19. Gen.: This is an age-appropriate patient in no acute distress. Head: Appears atraumatic with no visible lesions. Eyes: Pupils equally round and reactive to light, extraocular muscles are intact. Neck: Supple. Mouth: Mucous membranes appeared to be moist. Respiratory: Appears to be respiring comfortably. Neurologic: Nonfocal to gross visualization. Alert and oriented ?3. Psychiatric: No evidence of inappropriate anxiety or depression. Skin: Visible areas of skin without rash, lesions, wounds or petechiae. LABORATORY DATA: Hemoglobin (g/dL) Date Value 08/18/2022 13.8 08/14/2020 13.2 Hematocrit (%) Date Value 08/18/2022 41.1 08/14/2020 39.3 WBC (k/uL) Date Value 08/18/2022 6.33 08/14/2020 6.80 Platelet Count (k/uL) Date Value 08/18/2022 404 08/14/2020 385 ASSESSMENT/PLAN: 1. Iron def (more content not included)... [facility] 08-18-2022 History of Presen t illness Narrative PATIENT NAME: Brenda Mcclain DATE: 08/18/2022 PRIMARY CARE PHYSICIAN: Dr. Pam Villalobos OTHER PHYSICIANS: Dr. Garsia, Dr. Villalobos, Dr. Giordano Portions of this encounter note have been copied from my note from 08/19/2021 and has been updated where appropriate, and reflect my current medical decision making from today. CC: This is a 72 year old female with a history of iron deficiency anemia and MGUS, seen for scheduled follow-up. INTERIM HISTORY: Since the patient's last visit here she has been receiving Botox injections to her left facial area for her facial twitch. She has had no other neurological symptoms. On current medications she has had no GI symptoms. She denies any evidence of blood loss. No unusual pain. Overall the patient feels quite well today with no particular complaints. MEDICATIONS: omeprazole (PRILOSEC) 40 mg capsule Take 40 mg by mouth once daily. OXcarbazepine (TRILEPTAL) 300 mg tablet Take 300 mg by mouth twice daily. meloxicam (MOBIC) 15 mg tablet Take 15 mg by mouth. losartan (COZAAR) 100 mg tablet (Patient not taking: Reported on 08/19/2021 ) polyethylene glycol 3350 (MIRALAX, GLYCOLAX) 17 gram packet Take 17 g by mouth as needed. (Patient not taking: Reported on 08/19/2021 ) docusate sodium (COLACE) 100 mg capsule Take 100 mg by mouth as needed. (Patient not taking: Reported on 08/19/2021 ) diphenhydrAMINE (BENADRYL) 25 mg capsule Take 25 mg by mouth every 6 hours as needed. loratadine 10 mg cap Take by mouth as needed. atorvastatin (LIPITOR) 10 mg tablet Take 10 mg by mouth once daily. PROAIR HFA 90 mcg/actuation inhaler use 2 (TWO) puffs EVERY 4 HOURS NEEDED Hydrochlorothiazide 12.5 mg capsule Take 25 mg by mouth once daily. citalopram hydrobromide(CELEXA 20 MG TAB) Take one(1) tablet daily at bedtime. dicyclomine hcl(BENTYL 10 MG CAP) Take one(1) tablet daily as needed. eletriptan hydrobromide(RELPAX 40 MG TAB) Take one(1) tablet daily as needed. (Patient not taking: Take one(1) tablet daily as needed.) ALLERGIES: Adhesive Tape (Rosins), Cefuroxime Axetil, and Clindamycin Hcl PAST MEDICAL HISTORY: PAST MEDICAL HISTORY Diagnosis Date Anemia BCC (basal cell carcinoma) Depression DVT (deep vein thrombosis) in after childbirth 40+ years ago GERD (gastroesophageal reflux disease) Hiatal hernia HTN (hypertension) Hypercholesteremia IBS (irritable bowel syndrome) Monoclonal gammopathy of undetermined significance 01/25/2018 Uterine cancer (HCC) PAST SURGICAL HISTORY: PAST SURGICAL HISTORY Procedure Laterality Date HEMORRHOIDECTOMY HYSTERECTOMY LAPAROSCOPIC SPLENECTOMY 02/14/2018 NEUROPLASTY &/TRANSPOSITION ULNAR NERVE ELBOW KIMMY HX 02/14/2018 POST-CATARACT LASER SURGERY Bilateral REPAIR PARAESOPHAGEAL HERNIA 02/14/2018 lap converted to open TOTAL KNEE REPLACEMENT Left 10/29/2019 VEIN SURGERY (SPECIFY LOCATION) HX REVIEW OF SYSTEMS: General: No weight loss, malaise or fevers. HEENT: Negative for frequent or significant headaches. No changes in hearing or vision, no nose bleeds or other nasal problems. Respiratory: Negative for cough, wheezing or shortness of breath. Cardio: Negative for chest pain, leg swelling or palpitations. GI: Negative for abdominal discomfort, blood in stools or black stools or change in bowel habits. : No history of dysuria, frequency or incontinence. Musculoskeletal: Negative for: joint pain or swelling, back pain and muscle pain. Skin: Negative for lesions, rash and itching. Hematology/Lymphology: Negative for prolonged bleeding, bruising easily or swollen nodes. Neuro: No history of headaches, syncope, paralysis, seizures or tremors. PHYSICAL EXAM: Vitals: BP 117/77 Pulse 78 Temp 36.2 C (97.1 F) (Temporal) Resp 16 Ht 161.3 cm (5' 3.5 ) Wt 82.5 kg (181 lb 12.8 oz) SpO2 100% BMI 31.70 kg/m Exam limited to gross visualization where appropriate due to COVID-19. Gen.: This is an age-appropriate patient in no acute distress. Head: Appears atraumatic with no visible lesions. Eyes: Pupils equally round and reactive to light, extraocular muscles are intact. Neck: Supple. Mouth: Mucous membranes appeared to be moist. Respiratory: Appears to be respiring comfortably. Neurologic: Nonfocal to gross visualization. Alert and oriented 3. Psychiatric: No evidence of inappropriate anxiety or depression. Skin: Visible areas of skin without rash, lesions, wounds or petechiae. LABORATORY DATA: Hemoglobin (g/dL) Date Value 08/18/2022 13.8 08/14/2020 13.2 Hematocrit (%) Date Value 08/18/2022 41.1 08/14/2020 39.3 WBC (k/uL) Date Value 08/18/2022 6.33 08/14/2020 6.80 Platelet Count (k/uL) Date Value 08/18/2022 404 08/14/2020 385 ASSESSMENT/PLAN: 1. Iron deficiency anemia due to chronic blood loss - ICD9: 280.0, ICD10: D50.0 (primary diagnosis) Iron deficiency anemia initially discovered December 2014. Initial GI evaluation January 2015 nondiagnostic. The patient was started on oral iron supplements at the time of diagnosis, and her CBC normalized within 2 months. The patient developed recurrent iron deficiency anemia despite oral iron in February 2017. She received several courses of IV iron with Injectafer, most recently given in December 2017. 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 The patient subsequently underwent surgery at [facility] (Dr. Garsia) on 02/14/2018. Her surgery included a laparoscopic converted to open paraesophageal hernia repair, lap splenectomy, laparoscopic posterior hiatoplasty, laparoscopic placement of BIO-A mesh, and open Kimmy fundoplication. Since surgery the patient's CBC has remained stable with no evidence of iron deficiency. At this time the patient is clinically stable and her CBC is normal. We will see her on a yearly basis with labs. We will monitor her iron stores, and if iron deficiency recurs we will give additional IV iron and consider repeat GI evaluation. 2. Monoclonal gammopathy of undetermined significance - ICD9: 273.1, ICD10: D47.2 IgG lambda monoclonal gammopathy diagnosed February 2017 (labs obtained during evaluation of an atypical rash). Initial M spike low (0.6), and other other labs within normal limits. The patient was diagnosed with MGUS and observation was recommended. At this time we will plan to monitor the patient's labs on a yearly basis and intervene accordingly if labs worsen. 3. Arthritis Significant osteoarthritis of the knees. Continue management per PCP/orthopedics. 4. Recurrent migraine headaches, left facial twitch Neurological symptoms most likely unrelated to her underlying hematologic condition. She will follow-up with neurology for further evaluation and management. Sanjay Adkins MD documented in this encounter [facility] 08-26-2021 Miscellaneous Notes Call placed to pt. No answer. Left message informing pt of Dr Adkins's message and to return call if any questions/concerns. Tello Mak RN ----- Message from Sanjay Adkins MD sent at 08/24/2021 4:47 PM EDT ----- Please inform the patient that her protein analysis is stable. We will continue monitoring as planned, and see her back as scheduled. ALFONSO Hutton documented in this encounter [facility] 08-20-2021 Miscellaneous Notes Informed pt of Dr Adkins's message. Pt verbalized understanding and denies further needs at this time. Results sent to Dr Villalobos. Tello Chairez RN ----- Message from Sanjay Adkins MD sent at 08/19/2021 4:53 PM EDT ----- Please inform the patient her kidney tests are up slightly and potassium down. It may be due to her water pills or other medicines. Best if she contact her PCP for follow-up. I will see her back as scheduled. ALFONSO Hutton documented in this encounter [facility] 08-19-2021 Nurse Note Patient states that she is very tired. Deisy Andujar MA documented in this encounter [facility] 08-19-2021 History of Presen t illness Narrative PATIENT NAME: Brenda Mcclain DATE: 08/19/2021 PRIMARY CARE PHYSICIAN: Dr. Pam Villalobos OTHER PHYSICIANS: Dr. Garsia, Dr. Villalobos, Dr. Giordano Portions of this encounter note have been copied from my note from 08/14/2020 and has been updated where appropriate, and reflect my current medical decision making from today. CC: This is a 71 year old female with a history of iron deficiency anemia and MGUS, seen for scheduled follow-up. INTERIM HISTORY: Since the patient's last visit here she apparently noticed a left facial twitch on and off since March 2021. She also has had worsening migraine headaches for which she is on new medications. She is scheduled to be seen by neurology (Dr. Giordano) on 09/07/2021. Her only other complaint is ongoing fatigue, which is a chronic problem. She otherwise feels about the same. No signs of bleeding or bruising. MEDICATIONS: meloxicam (MOBIC) 15 mg tablet Take 15 mg by mouth. losartan (COZAAR) 100 mg tablet cyclobenzaprine (FLEXERIL) 10 mg tablet Take 10 mg by mouth as needed. polyethylene glycol 3350 (MIRALAX, GLYCOLAX) 17 gram packet Take 17 g by mouth as needed. docusate sodium (COLACE) 100 mg capsule Take 100 mg by mouth as needed. diphenhydrAMINE (BENADRYL) 25 mg capsule Take 25 mg by mouth every 6 hours as needed. loratadine 10 mg cap Take by mouth as needed. atorvastatin (LIPITOR) 10 mg tablet Take 10 mg by mouth once daily. PROAIR HFA 90 mcg/actuation inhaler use 2 (TWO) puffs EVERY 4 HOURS NEEDED Hydrochlorothiazide 12.5 mg capsule Take 25 mg by mouth once daily. citalopram hydrobromide(CELEXA 20 MG TAB) Take one(1) tablet daily at bedtime. dicyclomine hcl(BENTYL 10 MG CAP) Take one(1) tablet daily as needed. eletriptan hydrobromide(RELPAX 40 MG TAB) Take one(1) tablet daily as needed. ALLERGIES: Adhesive Tape (Rosins), Cefuroxime Axetil, and Clindamycin Hcl PAST MEDICAL HISTORY: PAST MEDICAL HISTORY Diagnosis Date Anemia BCC (basal cell carcinoma) Depression DVT (deep vein thrombosis) in after childbirth 40+ years ago GERD (gastroesophageal reflux disease) Hiatal hernia HTN (hypertension) Hypercholesteremia IBS (irritable bowel syndrome) Monoclonal gammopathy of undetermined significance 01/25/2018 Uterine cancer (HCC) PAST SURGICAL HISTORY: PAST SURGICAL HISTORY Procedure Laterality Date AFTER CATARACT LASER SURGERY Bilateral HEMORRHOIDECTOMY HYSTERECTOMY LAPAROSCOPIC SPLENECTOMY 02/14/2018 KIMMY HX 02/14/2018 REPAIR PARAESOPHAGEAL HERNIA 02/14/2018 lap converted to open REVISE ULNAR NERVE AT ELBOW TOTAL KNEE REPLACEMENT Left 10/29/2019 VEIN SURGERY (SPECIFY LOCATION) HX REVIEW OF SYSTEMS: General: No weight loss, malaise or fevers. HEENT: Negative for frequent or significant headaches. No changes in hearing or vision, no nose bleeds or other nasal problems. Respiratory: Negative for cough, wheezing or shortness of breath. Cardio: Negative for chest pain, leg swelling or palpitations. GI: Negative for abdominal discomfort, blood in stools or black stools or change in bowel habits. : No history of dysuria, frequency or incontinence. Musculoskeletal: Negative for: joint pain or swelling, back pain and muscle pain. Skin: Negative for lesions, rash and itching. Hematology/Lymphology: Negative for prolonged bleeding, bruising easily or swollen nodes. Neuro: No history of headaches, syncope, paralysis, seizures or tremors. PHYSICAL EXAM: Vitals: BP 133/83 Pulse 91 Temp 37 C (98.6 F) (Temporal) Resp 16 Ht 161.3 cm (5' 3.5 ) Wt 79.8 kg (176 lb) SpO2 96% BMI 30.68 kg/m Exam limited to gross visualization where appropriate due to COVID-19. Gen.: This is an age-appropriate patient in no acute distress. Head: Appears atraumatic with no visible lesions. Eyes: Pupils equally round and reactive to light, extraocular muscles are intact. Neck: Supple. Mouth: Mucous membranes appeared to be moist. Respiratory: Appears to be respiring comfortably. Neurologic: Nonfocal to gross visualization. Alert and oriented 3. Psychiatric: No evidence of inappropriate anxiety or depression. Skin: Visible areas of skin without rash, lesions, wounds or petechiae. LABORATORY DATA: Hemoglobin (g/dL) Date Value 08/19/2021 14.1 08/14/2020 13.2 Hematocrit (%) Date Value 08/19/2021 41.9 08/14/2020 39.3 WBC (k/uL) Date Value 08/19/2021 8.99 08/14/2020 6.80 Platelet Count (k/uL) Date Value 08/19/2021 409 08/14/2020 385 ASSESSMENT/PLAN: 1. Iron deficiency anemia due to chronic blood loss - ICD9: 280.0, ICD10: D50.0 (primary diagnosis) Iron deficiency anemia initially discovered December 2014. Initial GI evaluation January 2015 nondiagnostic. The patient was started on oral iron supplements at the time of diagnosis, and her CBC normalized within 2 months. The patient developed recurrent iron deficiency anemia despite oral iron in February 2017. She received several courses of IV iron with Injectafer, most recently given in December 2017. 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 The patient subsequently underwent surgery at [facility] (Dr. Garsia) on 02/14/2018. Her surgery included a laparoscopic converted to open paraesophageal hernia repair, lap splenectomy, laparoscopic posterior hiatoplasty, laparoscopic placement of BIO-A mesh, and open Kimmy fundoplication. Since surgery the patient's CBC has remained stable with no evidence of iron deficiency. At this time the patient is clinically stable and her CBC is normal. We will see her on a yearly basis with labs. We will monitor her iron stores, and if iron deficiency recurs we will give additional IV iron and consider repeat GI evaluation. 2. Monoclonal gammopathy of undetermined significance - ICD9: 273.1, ICD10: D47.2 IgG lambda monoclonal gammopathy diagnosed February 2017 (labs obtained during evaluation of an atypical rash). Initial M spike low (0.6), and other other labs within normal limits. The patient was diagnosed with MGUS, and observation was recommended. We'll monitor the patient's labs and a yearly basis and intervene accordingly if labs worsen. 3. Arthritis Significant osteoarthritis of the knees. Continue management per PCP/orthopedics. 4. Recurrent migraine headaches, left facial twitch Neurological symptoms most likely unrelated to her underlying hematologic condition. She will follow-up with neurology for further evaluation and management. Sanjay Adkins MD CC: Dr. Giordano documented in this encounter [facility] 07-29-2021 Evaluation + Plan note Extrac rashawn from: Title:ANES POSTOP MAC/GEN NOTE Author:Fernando Chaparro JR Date:07/29/21 Plan Transfer/ Discharge: Patient can be discharged from PACU when criteria met. Condition good. Extracted from: Title:ANES PREOP ENDO NOTE Author:Alva Huizar JR, DO Date:07/29/21 Plan [place] [employer]hesi[employer] (ASA) physical status classification: Class II. Anesthetic Preoperative Plan Anesthesia: Monitored anesthesia care and general anesthesia if required.. Anesthetic plan, risks, benefits, and alternatives discussed with the patient and/or family. Pt. and/or family present and agree to proceed as planned.. Discussed the importance of abstaining from tobacco products, and offered counseling if desired.. [facility]06-09-2022 Hospital Discharge instructions Patient Education 07/29/2021 08:24:23 Esophageal Dilatation Esophageal Dilatation Esophageal dilatation, also called esophageal dilation, is a procedure to widen or open (dilate) a blocked or narrowed part of the esophagus. The esophagus is the part of the body that moves food andliquid from the mouth to the stomach. You may need this procedure if: You have a buildup of scar tissue in your esophagus that makes it difficult, painful, or impossibleto swallow. This can be caused by gastroesophageal reflux disease (GERD). You have cancer of the esophagus. There is a problem with how food moves through your esophagus. In some cases, you may need this procedure repeated at a later time to dilate the esophagus gradually. Tell a health care provider about: Any allergies you have. All medicines you are taking, including vitamins, herbs, eye drops, creams, and fivf-fjk-btjxgdw medicines. Any problems you or family members have had with anesthetic medicines. Any blood disorders you have. Any surgeries you have had. Any medical conditions you have. Any antibiotic medicines you are required to take before dental procedures. Whether you are or may be . What are the risks? Generally, this is a safe procedure. However, problems may occur, including: Bleeding due to a tear in the lining of the esophagus. A hole (perforation) in the esophagus. What happens before the procedure? Follow instructions from your health care provider about eating or drinking restrictions. Ask your health care provider about changing or stopping your regular medicines. This is especiallyimportant if you are taking diabetes medicines or blood thinners. Plan to have someone take you home from the hospital or clinic. Plan to have a responsible adult care for you for at least 24 hours after you leave the hospital orclinic. This is important. What happens during the procedure? You may be given a medicine to help you relax (sedative). A numbing medicine may be sprayed into the back of your throat, or you may gargle the medicine. Your health care provider may perform the dilatation using various surgical instruments, such as: ?Simple dilators. This instrument is carefully placed in the esophagus to stretch it. ?Guided wire bougies. This involves using an endoscope to insert a wire into the esophagus. A dilator is passed over this wire to enlarge the esophagus. Then the wire is removed. ?Balloon dilators. An endoscope with a small balloon at the end is inserted into the esophagus. Theballoon is inflated to stretch the esophagus and open it up. The procedure may vary among health care providers and hospitals. What happens after the procedure? Your blood pressure, heart rate, breathing rate, and blood oxygen level will be monitored until themedicines you were given have worn off. Your throat may feel slightly sore and numb. This will improve slowly over time. You will not be allowed to eat or drink until your throat is no longer numb. When you are able to drink, urinate, and sit on the edge of the bed without nausea or dizziness, you may be able to return home. Follow these instructions at home: Take bvcm-zgz-lmwmtqk and prescription medicines only as told by your health care provider. Do not drive for 24 hours if you were given a sedative during your procedure. You should have a responsible adult with you for 24 hours after the procedure. Follow instructions from your health care provider about any eating or drinking restrictions. Do not use any products that contain nicotine or tobacco, such as cigarettes and e-cigarettes. If you need help quitting, ask your health care provider. Keep all follow-up visits as told by your health care provider. This is important. Get help right away if you: Have a fever. Have chest pain. Have pain that is not relieved by medication. Have trouble breathing. Have trouble swallowing. Vomit blood. Summary Esophageal dilatation, also called esophageal dilation, is a procedure to widen or open (dilate) a blocked or narrowed part of the esophagus. Plan to have someone take you home from the hospital or clinic. For this procedure, a numbing medicine may be sprayed into the back of your throat, or you may gargle the medicine. Do not drive for 24 hours if you were given a sedative during your procedure. This information is not intended to replace advice given to you by your health care provider. Make sure you discuss any questions you have with your health care provider. Document Released: 03/30/2006 Document Revised: 01/19/2018 Document Reviewed: 12/12/2017 [employer] Patient Education 2020 [employer]. 07/29/2021 08:24:23 Endoscopy, Care After Procedure [facility] ([facility]) Endoscopy Care After Procedure Please read the instructions outlined below and refer to this sheet in the next few weeks. These discharge instructions provide you with general information on caring [facility] Your doctor may also give you specific instructions. While your treatment has been planned according to the most current medical practices available, unavoidable complications occasionally occur. If you have any problems or questions after discharge, please call your doctor. ACTIVITY You may resume your regular activity but move at a slower pace for the next 24 hours. Take frequent rest periods for the next 24 hours. Walking will help expel (get rid of) the air and reduce the bloated feeling in your abdomen. No driving for 24 hours (because of the anesthesia (medicine) used during the test). You may shower. Do not sign any important legal documents or operate any machinery for 24 hours (because of the anesthesia used during the test). NUTRITION Drink plenty of fluids. You may resume your normal diet. Begin with a light meal and progress to your normal diet. Avoid alcoholic beverages for 24 hours or as instructed by your caregiver. MEDICATIONS You may resume your normal medications unless your caregiver tells you otherwise. WHAT YOU CAN EXPECT TODAY You may experience abdominal discomfort such as a feeling of fullness or gas pains. FOLLOW-UP Your doctor will discuss the results of your test with you. SEEK IMMEDIATE MEDICAL ATTENTION IF ANY OF THE FOLLOWING OCCUR: Excessive nausea (feeling sick to your stomach) and/or vomiting. Severe abdominal pain and distention (swelling). Trouble swallowing. Temperature over 100 F (37.8 C). Rectal bleeding or vomiting of blood. Document Released: 09/20/2004 Document Re-Released: 07/31/2006 [employer] Patient Information 2009 [employer]. Follow Up Care 06/09/2021 11:21:23 With:Roge OWEN Address: [address] [place] [address]. [address] [place] [address] Business (1) When:1 to 2 weeks Comments:Call for any problems. [facility] Future Appointments Appointment Date:06/09/2021 10:00:00 AM Scheduled Provider:Roge OWEN MD Location:[facility] Dig[facility]ive Health Appointment Type:BAD Sick [facility] Future Appointments Appointment Date:07/29/2021 08:00:00 AM Scheduled Provider: Location:[facility] Surgical Services Appointment Type:Surgery FT [facility] Dig[facility] Evaluation note* Diagnosis Iron deficiency anemia due to chronic blood loss- Primary Iron deficiency anemia secondary to blood loss (chronic) Paraesophageal hernia Diaphragmatic hernia without mention of obstruction or gangrene Monoclonal gammopathy of undetermined significance Monoclonal paraproteinemia [facility] Diagnosis Monoclonal gammopathy of undetermined significance- Primary Monoclonal paraproteinemia History of iron deficiency Personal history of diseases of blood and blood-forming organs documented in this encounter [facility] course Narrative No data available for this section [facility] No data available for this section [facility] No data available for this section [facility] Summary Purpose Family History No Family History Records FoundNo Family History Records FoundNo Family History Records FoundNo Family History Records FoundNo Family History Records Found Advance Directives No Advanced Directives Records FoundDocuments on File Type Date 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 *Operations During Hospitalization:02/14:Laparoscopic converted to open paraesophageal hernia repair, Nissenfundoplication, splenectomyProcedures During Hospitalization:-endotracheal intubation-general anesthesiaBrief history:Brenda Mcclain is a 68 year old female, patient of Pam Medeiros MD, referred to Dr. Garsia for a paraesophageal hernia.. EGD11/17/[address] Valencia noted hiatal hernia 10cm and Schatzki ringesophogram 11/20/2017 (Faye Mehta)Hospital Course:The patient was admitted to the hospital with the above history. T (more content not included)... Additional Source Comments INFORMATION SOURCE (unrecogn ized section and content) DATE CREATED AUTHOR 02/19/2018 [facility] DATE CREATED AUTHOR AUTHOR'S ORGANIZ ATION 04/14/2021 [facility] dical Specialist DATE CREATED AUTHOR AUTHOR'S ORGANIZ ATION 08/23/[address] [facility] DATE CREATED AUTHOR AUTHOR'S ORGANIZ ATION 01/09/2023 [facility] DATE CREATED AUTHOR AUTHOR'S ORGANIZ ATION 01/17/2023 [facility] dical Specialists EPIC Care Team (unrecognized sect ion and content) Court Crier Relationship Specialty Start Date End Date Pam Villalobos PCP - General 12/07/07 [place] ([place] [id number] [place] [address] Specialty Buyer Broker General Surgery 01/24/18 Court Crier Relationship Specialty Start Date End Date Pam Villalobos PCP - General 12/07/07 [place] ([place] [id number] [place] [address] Specialty Buyer Broker General Surgery 01/24/18 Court Crier Relationship Specialty Start Date End Date Pam Villalobos PCP - General 12/07/07 [place] ([place] [id number] [place] [address] Specialty Buyer Broker General Surgery 01/24/18 Source Comments (unrecognize d section and content) In the event this informatio n is protected by the [facility] Confidentiality of Alcohol and Drug Abuse Patient Records regulations: The Federal rules restrict any use of the information to criminally investigate or prosecute any alcohol or drug abuse patient.[facility] the event this information is protected by the Federal Confidentiality of Alcohol and Drug Abuse Patient Records regulations: The Federal rules restrict any use of the information to criminally investigate or prosecute any alcohol or drug abuse patient.[facility] the event this information is protected by the Federal Confidentiality of Alcohol and Drug Abuse Patient Records regulations: The Federal rules restrict any use of the information to criminally investigate or prosecute any alcohol or drug abuse patient.[facility] Hospital[facility] the event this information is protected by the Federal Confidentiality of Alcohol and Drug Abuse Patient Records regulations: The Federal rules restrict any use of the information to criminally investigate or prosecute any alcohol or drug abuse patient.[facility] Reason for Visit (unrecogniz ed section and content) Reason Comments Anemia Reason Comments Results FOR RECORDS PERTAINING TO PATIENTS WHO ARE OR HAVE BEEN ENROLLED IN A CHEMICAL DEPENDENCY/SUBSTANCEABUSE PROGRAM, SOME INFORMATION MAY BE OMITTED. This clinical summary was aggregated from multiple sources. Caution should be exercised in using it in the provision of clinical care. This summary normalizes information from multiple sources, and as a consequence, information in this document may materially change the coding, format and clinical context of patient data. In addition, data may be omitted in some cases. CLINICAL DECISIONS SHOULD BE BASED ON THE PRIMARY CLINICAL RECORDS. [facility] [employer] [facility] provides no warranty or guarantee of the accuracy or completeness of information in this document.
== END 2023-01-26 09:49 | disposition home or self-care (01) ==
LOC: VC 09:48
PROVIDERS: PCP Radiology Diagnostic Radiology; Visit Provider Radiology Diagnostic Radiology
DX: I83.813 Varicose veins of bilateral lower extremities with pain (principal)
CPT/HCPCS: 36466

== ENCOUNTER 2023-02-03 09:56 | Outpatient (OUT) | payer MEDICARE, BC, SELFPAY ==
--- NOTE | 2023-02-03 10:00 | VEIN_ITS ---
Patient Name: KEELEY CADE MR#: [id number] : 1950 Exam Date: 02/03/2023 Ordering Doctor: DR KAMRON ALFONSO M.D. RADIOLOGY REPORT PROCEDURE: FACILITY EST LMTD VEIN CENTER - OFFICE VISIT FOLLOW UP COMPARISON: [facility] EST LMTD, 01/09/2023. FACILITY EST LMTD, 12/22/2022. PROGRESS NOTES: The patient reports no significant problems following micro foam chemical ablation of the right leg. The patient did not require oral analgesics. The patient has worn her compression stockings. The patient has followed our recommendations to walk 20-30 minutes once or twice per day since the procedure. Physical exam demonstrates multiple thrombosed varicose veins. Reticular spider veins remain. There is a large patent varicose vein on the right medial posterior thigh and knee running to the calf. No erythema or warmth to suggest cellulitis or thrombophlebitis. No active ulceration Review of the ultrasound performed the same day demonstrates occlusive thrombus extending throughout the treated right leg varicose veins. No deep vein thrombus on the right. Ultrasound of the left leg demonstrates reduction in known posterior tibial deep vein thrombus previously measuring 8 cm currently measuring 4 cm. The patient expressed a desire to proceed with treatment of residual incompetent right leg varicose vein. VEIN/[facility] EST LMTD IMPRESSION: 1. Successful ablation of right leg varicose veins. 2. Reduction in length of left leg posterior tibial deep vein thrombus. 3. Residual incompetent right leg patent varicose vein PLAN: Micro foam chemical ablation right leg Nurse notes, history and physical were reviewed and confirmed, see attached forms. The nurse was present throughout the physical exam and consultation Dictated by: Kamron Alfonso MD on 02/03/2023 at 10:46 Approved by: Kamron Alfonso MD on 02/03/2023 at 10:49
--- NOTE | 2023-02-03 10:00 | VEIN_ITS ---
Patient Name: KEELEY CADE MR#: [id number] : 1950 Exam Date: 02/03/2023 Ordering Doctor: DR DI ALFONSO M.D. RADIOLOGY REPORT PROCEDURE: VC EXT VENOUS GEN LIMITED COMPARISON: None. INDICATIONS: I80.03 Phlebitis of superficial veins of gen lower extremies TECHNIQUE: Lower extremity botello scale and Duplex Doppler evaluation of the deep venous system from the inguinal ligament through the calf veins. FINDINGS: REGION: Right lower extremity. THROMBI: Acute and chronic appearing thrombi. Varithena induced thrombus visualized at mid/post calf, mid/med calf, and dist/med thigh. COMPRESSIBILITY: Non-compressible segments. FLOW: Absent flow corresponding to thrombus OTHER: No patent varicose veins remain REGION: Left lower extremity. THROMBI: Acute and chronic appearing thrombi. Positive for DVT visualized at mid PTV. The segment of DVT is 4 cm in length. COMPRESSIBILITY: Non-compressible segments. FLOW: Absent flow corresponding to thrombus. *Exam performed in accordance with [facility] practice guidelines- Peripheral venous ultrasound, May 16, 2009. CONCLUSION: 1. Post ablation occlusion of treated varicose veins 2. Interval reduction in length of left posterior tibial vein deep vein thrombus now measuring 4 cm in length 3. No significant residual patent varicose veins remain Dictated by: Di Alfonso MD on 02/03/2023 at 10:37 Approved by: Di Alfonso MD on 02/03/2023 at 10:40
== END 2023-02-03 09:57 | disposition home or self-care (01) ==
LOC: VC 09:59
PROVIDERS: PCP Radiology Diagnostic Radiology; Visit Provider Radiology Diagnostic Radiology
DX: I80.03 Phlebitis and thrombophlebitis of superficial vessels of lower extremities, bilateral (principal)
CPT/HCPCS: 93970; G0463

== ENCOUNTER 2023-02-16 10:56 | Outpatient (OUT) | payer MEDICARE, BC, SELFPAY ==
--- NOTE | 2023-02-16 10:57 | VEIN_ITS ---
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 Ultrasound-guided microfoam chemical ablation with Varithenaregistered 2. Intraoperative ultrasound guidance Physician: Celso Sargent M.D. Anesthesia: None Indications for Procedure: 73 year old female. Symptoms including lower extremity pain, swelling, dilated bulging veins for many years despite conservative medical therapy including medical compression stockings, exercise and analgesics. Prior procedures include endovenous laser ablation and microfoam chemical ablation. Multiple incompetent varicosities of the left leg. Duplex scan showed reflux and enlarged diameters up to 4 mm. The patient underwent informed consent including management options where the complications of infection, bleeding, pain, and skin injury were discussed. Particular attention was spent discussing thrombus extension and deep vein thrombosis as well as the possibility of pulmonary embolus and treatment with oral or injectable blood thinners. Procedure: The patient walked to the procedure room. All applicable staff donned appropriate apparel. A procedure timeout was performed to confirm correct patient, correct extremity, correct procedure, and correct room set-up including presence of all applicable supplies, devices, and drugs. A duplex ultrasound, performed by myself confirmed the location and incompetence of branch saphenous varicosities and their course was marked on the skin together with the dilated tributaries. The extent of treatment of the vein and the associated varicosities was determined through ultrasound mapping. The skin was prepped and then punctured with a butterfly needle and advanced under ultrasound guidance. The Varithenaregistered canister was activated and the canister was primed and purged as required in the instructions for use. Varithenaregistered was drawn into a sterile syringe. Varithenaregistered was slowly administered at 0.5-1.0 cc/second with close observation by ultrasound of its course in the vessels. Total volume utilized was: 7 mL (5 mL 24 mm varicosity of the proximal medial lower left leg; 2 mL into a prominent reticular vein lateral to the right knee). Following administration of Varithenaregistered the leg was elevated and the patient was asked to repeatedly dorsiflex the ankle to limit flow of Varithenaregistered into perforating veins. Once appropriate spasm had been confirmed in the treated veins, the vascular catheter was removed from the leg and light pressure was applied over the puncture site for hemostasis. The common femoral and deep superficial veins were then evaluated for flow and compressibility prior to dressing placement. The lower extremity was kept elevated at 45 degrees above the horizontal and cording material was applied over the saphenous segments and tributaries to allow for eccentric compression over the target vessels including the targeted saphenous vein(s). A multilayer dressing was applied consisting of foam pads, coban and thigh-high 20-30 mm Hg compression elastic support hose were placed on the patient. The leg was lowered only after compression had been applied and the patient was immediately ambulatory. The patient ambulated 10 minutes under supervision and was without apparent concerns at time of release. Post-care instructions include advising patient to keep post-treatment bandages in place and dry for 48 hours, avoid extended periods of inactivity, avoid heavy exercise for one week, wear compression stockings on the treated leg continuously for two weeks, to walk daily for 10 minutes over the next month. The patient was instructed to take an anti-inflammatory medicine as needed and to follow up for color duplex scan of the Saphenous veins, the treated branch saphenous varicosities, the adjacent deep veins, and additional treatment within 7 days. PERSONNEL: Erika Adame RN Electronically authenticated by: CELSO SARGENT Date: 02/16/2023 12:17
--- OUTSIDE RECORDS SUMMARY | 2023-02-16 11:04 | XMS_ITS | CCD ---
Author Name Unknown Address [address] [place] [address] Organization [facility] Care Team Providers Care Hotel Concierge Name Role Phone MNOICA GARSIA) Unavailable Unavailable MONICA GARSIA) Unavailable Unavailable Pam Villalobos Primary Care Physician Yohana Rodarte Unavailable Unavailable Blanca Stratton Unavailable Unavailable Pam Villalobos Primary Care Provider [phone] Linda DIETZ, Tello Ulrich (Rn) Unavailable Unavailab [...] Propensity to adverse reactions (disorder) 8 Rash [facility] Other [place] Repository (6 sources) Cefuroxime; Translations: [CEFUROXIME AXETIL] Drug Allergy [address] [facility] Repository (6 sources) Clindamycin; Translations: [CLINDAMYCIN HCL] Drug Allergy [address] [facility] Repository (8 sources) Adhesive Tape; Translations: [Adhesive tape] Allergy to substance [facility] Medications Current Medications Medication Drug Class(es) Dates Sig (Normalized) Sig (Original) acetaminophen 500 mg oral tablet (7 sources) Start: 11-16-2017 take 500 mg by mouth every six hours as needed for pain Tylenol 500 mg, Oral, q6hr, PRN as needed for pain, Refills(s) 0 Start Date: 11/16/17 Status: Ordered [id number] 200 actuat albuterol 0.09 mg/actuat metered dose [...] Anti-inflammatory Drug Start: 10-29-2019 Ecotrin 325 mg Tab-EC 325 mg = 1 tab(s), Oral, BIDPC, # 60 tab(s), Refills(s) 0, Pharmacy: [facility], 161.5, cm, 10/09/19 6:34:00 EDT, Height/Length Dosing, 80.1, kg, 10/11/19 12:14:00 EDT, Weight Dosing Start Date: 10/29/19 Status: Ordered Start: 10-29-2019 Ecotrin 325 mg Tab-EC 325 mg = 1 tab(s), Oral, BIDPC, # 60 tab(s), Refills(s) 0, Pharmacy: [facility], 161.5, cm, 10/09/19 6:34:00 EDT, Height/Length [...] tablet (11 sources) Histamine-1 Receptor Antagonist Start: 8 take 25 mg by mouth once daily at bedtime as needed Benadryl 25 mg, Oral, Once a day (at bedtime), PRN as needed for itching, Refills(s) 0, Insomnia Start Date: 11/17/17 Status: Ordered take [address] [facility] every six hours as needed diphenhydrAMINE (BENADRYL) 25 mg capsule Take 25 mg by mouth every 6 hours as needed. 0 Active Comment on above: Take 25 mg by mouth every 6 hours as needed. docusate sodium 100 mg oral capsule (12 sources) Start: 10-29-2019 take 1 capsule by mouth twice daily as needed for constipation Colace 100 mg Cap 100 mg = 1 cap(s), Oral, BID, PRN for constipation, # 40 cap(s), Refills(s) 0, Pharmacy: [facility], 161.5, cm, 10/09/19 6:34:00 EDT, Height/Length [...] sources) Serotonin-1b and Serotonin-1d Receptor Agonist Start: 2007 take 1 tablet by mouth once daily as needed for headache Relpax 40 mg Tab 40 mg = 1 tab(s), Oral, Daily, PRN Migraine headache, Refills(s) 0, Migraine headache Start Date: 09/30/19 Status: Ordered Comment on above: Take one(1) tablet d aily as needed. hydroCHLOROthiazide 25 mg oral tablet (11 sources) Thiazide Diuretic Start: 2019 take 1 tablet by mouth once daily hydrochlorothiazide 25 mg oral tablet 25 mg = 1 tab(s), Oral, Daily, diuretic/water pill Start Date: 10/08/19 Status: Ordered Start: 01-10-2017 take 2 capsules by m outh once daily Hydrochlorothiazide 12.5 mg capsule Take [...] day(s), # 90 cap(s), Refills(s) 1, Pharmacy: [facility], 161, cm, 07/29/21 7:13:00 EDT, Height/Length Dosing, 84, kg, 07/29/21 7:13:00 EDT, Weight Dosing Start Date: 09/23/21 Stop Date: 03/22/22 Status: Ordered Start: 06-09-2021 take [address] capsule [address] [facility] once daily omeprazole 40 mg Cap-DR 40 mg = 1 cap(s), Oral, Daily, # 30 cap(s), Refills(s) 2, Pharmacy: [facility], 161, cm, 06/09/21 10:32:00 EDT, Height/Length Dosing, 84, kg, 06/09/21 10:32:00 EDT, Weight Dosing Start Date: 06/09/21 Status: Ordered Comment on above: Take 40 mg by mouth once daily. omeprazole 40 mg Cap-DR (2 sources) Start: take 1 capsule by mouth once daily omeprazole 40 mg Cap-DR 40 mg = 1 cap(s), Oral, Daily, # 30 cap(s), Refills(s) 2, Pharmacy: [facility], 161, cm, 06/09/21 10:32:00 EDT, Height/Length Dosing, 84, kg, 06/09/21 10:32:00 EDT, Weight Dosing Start Date: 06/09/21 Status: Ordered ondansetron 4 mg oral tablet (7 sources) Serotonin-3 Receptor Antagonist Start: take 4 mg by mouth twice daily as needed for nausea Zofran 4 mg, Oral, BID, PRN as needed for nausea/vomiting, Refills(s) 0 Start Date: 12/09/19 Status: Ordered polyethylene glycol 3350 85290 mg powder for oral solution (6 sources) Osmotic Laxative Start: take 17 g by mouth once daily as needed for constipation Miralax 17 gram packet 17 gram, Oral, Daily, PRN Constipation, dissolve in water before taking Start Date: 12/04/18 Status: Ordered Comment on above: Take 17 g by mouth a s needed. ProAir HFA 90 mcg/inh inhalation aerosol (5 sources) Start: take 1 puff(s) by inhalation every six hours ProAir HFA 90 mcg/inh inhalation aerosol 1 puff(s), Inhalation, q6hr Shortness of breath or wheezing Start Date: 10/08/19 Status: Ordered promethazine hydrochloride 25 mg oral tablet (1 source) Phenothiazine Start: take 1 tablet by mouth every six [...] pain Dx: M17.12, Z96.642 Duration: 7 days, [facility], 161.5, cm, 10/09/19 6:34:00 EDT, Height/Length Dosing, 80.1, kg, 10/11/19 12... Start Date: 10/29/19 Status: Ordered Start: 10-29-2019 Percocet 325 m g-5 mg Tab See Instructions, as needed for pain, 40 tab(s), Refill(s) 0, 1-2 orally every 4-6hrs as needed for pain Dx: M17.12, Z96.642 Duration: 7 days, [facility], 161.5, cm, 10/09/19 6:34:00 EDT, [...] Results Test Name Value Interpretation Reference Range Facility Auto Diffon 2023 Basophils/100 WBC (Bld) 0.4 % Normal 0.0-2.0 [facility] Comment on above: Order Comment: Order Added by Discern Expert. Performed By: #### 1 [id number], 6029048, 2057548, 4125710 #### [facility] [address] [place] [address] 45406 Basophils/Leukocy maury Auto (Bld) [Pure # fraction] 0.0 E9/L Normal 0.0-0.2 [facility] Comment on above: Order Comment: Order Added by Discern Expert. Performed By: #### 1 6122259, 5254502, 5209052, 6597435 #### [facility] [address] [place] [address] 67287 Eosinophils/100 WBC (Bld) 5.9 % Normal 0.0-8.0 [facility] Comment on above: Order Comment: Order Added by Discern Expert. Performed By: #### 1 6603836, 0173102, 7999053, 3997885 #### [facility] [address] [place] [address] 90666 Eosinophils/Leuko cytes Auto (Bld) [Pure # fraction] 0.4 E9/L Normal 0.0-0.5 [facility] Comment on above: Order Comment: Order Added by Discern Expert. Performed By: #### 1 4174198, 3058480, 2132822, 5084381 #### [facility] [address] [place] [address] 36924 Lymphocytes/100 WBC (Bld) 30.4 % Normal 14.0-50.0 [facility] Comment on above: Order Comment: Order Added by Discern Expert. Performed By: #### 1 8960660, 4787630, 8741395, 8306109 #### [facility] [address] [place] [address] 19866 Lymphocytes/Leuko cytes Auto (Bld) [Pure # fraction] 2.0 E9/L Normal 1.0-4.0 [facility] Comment on above: Order Comment: Order Added by Discern Expert. Performed By: #### 1 8997975, 8192091, 8135270, 4538737 #### [facility] [address] [place] [address] 42265 Monocytes/100 WBC (Bld) 11.1 % Normal 4.0-14.0 [facility] Comment on above: Order Comment: Order Added by Discern Expert. Performed By: #### 1 8772416, 9090366, 2391888, 3332881 #### [facility] [address] [place] [address] 29641 Monocytes/Leukocy maury Auto (Bld) [Pure # fraction] 0.7 E9/L Normal 0.2-1.0 [facility] Comment on above: Order Comment: Order Added by Discern Expert. Performed By: #### 1 0468203, 2054365, 8273834, 5675136 #### [facility] [address] [place] [address] 32527 Neutrophils/100 WBC (Bld) 52.2 % Normal 36.0-75.0 [facility] Comment on above: Order Comment: Order Added by Discern Expert. Performed By: #### 1 0911678, 2454281, 1578045, 5056831 #### [facility] [address] [place] [address] 36470 Neutrophils/Leuko cytes Auto (Bld) [Pure # fraction] 3.5 E9/L Normal 2.0-7.5 [facility] Comment on above: Order Comment: Order Added by Discern Expert. Performed By: #### 1 5022785, 9163381, 7787542, 6072860 #### [facility] [address] [place] [address] 28725 CBC w/ Auto Diffon 3 Erythrocyte distribution width (RBC) [Ratio] 13.0 % Normal 10.9-14.2 [facility] Comment on above: Performed By: #### 1 1067216, 6074688, 7304464, 3146444 #### [facility] [address] [place] [address] Hematocrit (Bld) [Volume fraction] 42.3 % Normal 34.0-46.0 [facility] Comment on above: Performed By: #### 1 4596983, 9168256, 6335624, 5295077 #### [facility] [address] [place] [address] Hemoglobin (Bld) [Mass/Vol] 14.3 g/dL Normal 12.0-16.0 [facility] Comment on above: Performed By: #### 1 6690988, 8748210, 2582247, 6886299 #### [facility] [address] [place] [address] 09321 MCH (RBC) [Entitic mass] 31.7 pg Normal 27.0-34.0 [facility] Comment on above: Performed By: #### 1 6335299, 1439559, 5266013, 8921126 #### [facility] [address] [place] [address] 26093 MCHC (RBC) [Mass/Vol] 33.8 g/dL Normal 31.4-36.0 [facility] Comment on above: Performed By: #### 1 1571620, 8083624, 8357240, 2925109 #### [facility] [address] [place] [address] 15739 MCV (RBC) [Entitic vol] 93.7 fL Normal 80.0-100.0 [facility] Comment on above: Performed By: #### 1 7014493, 0929084, 3506126, 0905134 #### [facility] [address] [place] [address] 81077 Platelet mean volume (Bld) [Entitic vol] 8.2 fL Normal 6.4-10.8 [facility] Comment on above: Performed By: #### 1 2643209, 8179298, 2578527, 4879327 #### [facility] [address] [place] [address] 78474 Platelets (Bld) [#/Vol] 407.0 E9/L Normal 150.0-500.0 [facility] Comment on above: Performed By: #### 1 8339686, 5404610, 3478275, 3909018 #### [facility] [address] [place] [address] RBC (Bld) [#/Vol] 4.5 E12/L Normal 4.3-5.9 [facility] Comment on above: Performed By: #### 1 5240018, 2348228, 1693512, 3830307 #### [facility] [address] [place] [address] WBC corrected for nucl RBC Auto (Bld) [#/Vol] 6.6 E9/L Normal 4.0-11.0 [facility] Comment on above: Performed By: #### 1 6995302, 8364265, 5641717, 5037458 #### [facility] [address] [place] [address] CMPon 2023 Albumin [Mass/Vol] 3.7 g/dL Normal 3.3-5.0 [facility] Comment on above: Performed By: #### 1 1974079, 6372056, 7190405, 2417632 #### [facility] [address] [place], [place] [address] Albumin/Globulin (S) [Mass conc ratio] 0.9 Low 1.1-2.2 [facility] Comment on above: Performed By: #### 1 0956321, 9122459, 0424479, 6476096 #### [facility] [address] [place] [address] 72978 ALP [Catalytic activity/Vol] 108 Int._Unit/L High 21-98 [facility] Comment on above: Performed By: #### 1 0644932, 1648571, 6939968, 4419263 #### [facility] [address] [place] [address] 74782 ALT No additional P-5'-P [Catalytic activity/Vol] 18 Int._Unit/L Normal 6-46 [facility] Comment on above: Performed By: #### 1 8657069, 8433101, 0771856, 1414670 #### [facility] [address] [place] [address] AST [Catalytic activity/Vol] 20 Int._Unit/L Normal 5-43 [facility] Comment on above: Performed By: #### 1 7425213, 8011317, 1386145, 1371380 #### [facility] [address] [place] [address] Bilirubin [Mass/Vol] 0.7 mg/dL Normal 0.0-1.1 [facility] Comment on above: Performed By: #### 1 1979659, 7770651, 3377720, 6094786 #### [facility] [address] [place] [address] Creatinine [Mass/Vol] 1.0 mg/dL Normal 0.5-1.3 [facility] Comment on above: Performed By: #### 1 9543519, 6572696, 0583737, 7506893 #### [facility] [address] [place] [address] Globulin (S) [Mass/Vol] 4.1 g/dL High 1.4-4.0 [facility] Comment on above: Performed By: #### 1 4113864, 3175782, 7199376, 4829450 #### [facility] [address] [place] [address] Protein [Mass/Vol] 7.8 g/dL Normal 6.0-7.8 [facility] Comment on above: Performed By: #### 1 5721950, 4575944, 1744108, 5152829 #### [facility] [address] [place] [address] Urea nitrogen [Mass/Vol] 14 mg/dL Normal 5-21 [facility] Comment on above: Performed By: #### 1 9382331, 4919620, 0255286, 6635504 #### [facility] [address] [place] [address] Urea nitrogen/Creatini ne [Mass ratio] 14 No Units Normal 10-20 [facility] Comment on above: Performed By: #### 1 3036419, 3921366, 0879026, 7090098 #### [facility] [address] [place] [address] Anion gap [Moles/Vol] 12 mmol/L Normal 6-16 [facility] Comment on above: Performed By: #### 1 1724692, 7951527, 9462676, 3932601 #### [facility] [address] [place] [address] Calcium [Mass/Vol] 9.7 mg/dL Normal 8.9-11.1 [facility] Comment on above: Performed By: #### 1 6352368, 6700615, 1637363, 9998800 #### [facility] [address] [place] [address] Chloride [Moles/Vol] 106 mmol/L Normal 101-111 [facility] Comment on above: Performed By: #### 1 8311238, 0732414, 5763787, 5480492 #### [facility] [address] [place] [address] CO2 [Moles/Vol] 27 mmol/L Normal 21-31 [facility] Comment on above: Performed By: #### 1 2410986, 6589436, 8050511, 1832992 #### [facility] [address] [place] [address] Glucose [Mass/Vol] 95 mg/dL Normal 55-199 [facility] Comment on above: Result Comment: If t his glucose result represents a fasting glucose, interpretation should refer to the following reference range: 55-99 mg/dL Performed By: #### 1 8520648, 5567945, 3211921, 1774576 #### [facility] [address] [place] [address] Potassium [Moles/Vol] 3.9 mmol/L Normal 3.5-5.3 [facility] Comment on above: Performed By: #### 1 5383572, 1754683, 8747608, 3307776 #### [facility] [address] [place] [address] Sodium [Moles/Vol] 141 mmol/L Normal 135-145 [facility] Comment on above: Performed By: #### 1 6992737, 9765294, 5345154, 8580160 #### [facility] [address] [place] [address] Consent for Treatmenton 12-21 Consent for Treatment [id number] Normal [facility] Discharge Instructionson Discharge Instructions [id number]#[id number] Normal [facility] ED Clinical Summaryon 2022 ED Clinical Summary [address] [address] ED Clinical Summary Person Information Name: BRENDA MCCLAIN [facility] Age: 73 Years : 1950 Sex: Female Language: Uzbek PCP: Pam Villalobos MD Marital Status: Phone: [phone] Visit Id: Visit Reason: Rash; Headache - [...] 2023 14:40:42 2023 14:40:42 2023 14:40:42 ADDRESS: [address] [facility] [id number] PHYS DOC NOTES: MEDICAL INFORMATION: Prescriptions Given: New Medications [facility], [address] [place], [place] [id number], [phone] ketoconazole topical (ketoconazole Top 2% Crm) 1 [...] up: With: Address: When: Pam Villalobos [address] [place] [address] [employer] In 3 days 01/11/2023 Comments: Call the [...] ED visit. (more content not included)... Normal [facility] ED Note-Physicianon 01-09-20 ED Note-Physician Basic [...] gm, Refill(s) 0, apply to fungal infection, [facility], 157.5, cm, 01/08/23 12:28:00 EST, Height/Length [...] IV diphenhydrAMINE (more content not included)... Normal [facility] Comment on above: Result Comment: Elec ishally Signed By: Gray Moon DO\.br\Date and Time [...] conditioner or fan, if available. ? Apply rohr-hzg-ngzftop and prescription medicines only as told by [...] well after activity or exercise. Use a hair tinter on a cool setting to dry between [...] your skin and with medicines. ? Apply yymr-erq-rorhqat and prescription medicines only as told by [...] Reviewed: 11/22/2021 Elsevier Patient Education ? 2022 [employer]. Neurology Migraine Headache A migraine headache is [...] inflammation c (more content not included)... Normal [facility] ED Patient Summaryon 023 ED Patient Summary [address] [address] Patient Discharge Instructions Person Information Name: BRENDA MCCLAIN Age: 73 Years Arrival Date: 2023 12:14:08 Discharge Diagnosis: Candidal intertrigo; Classic migraine; Id reaction Primary Care Physician: Pam Villalobos MD Provider Information Primary Provider: Gray Moon DO [employer] Referee:None The exam and treatment you received in the Emergency Department were for an urgent problem and are not intended as complete care. It is important that you follow up with a doctor, nurse practitioner, or physician?s preschool assistant principal for ongoing care. If your symptoms become worse or you do not improve as expected and you are unable to reach your usual health care provider, you should return to the Emergency Department. We are available 24 hours a day. BRENDA MCCLAIN has been given the following list of patient education materials, prescriptions and follow-up instructions: Follow-up Instructions: With: Address: When: Pam Villalobos [address] [place] [address] Business (1) In 3 days 01/11/2023 Comments: Call [...] opioids can be used to help relieve dqbsmqis-pk-dehfac pain and are often prescribed following a [...] a pl (more content not included)... Normal [facility] eGFRon 2023 GFR/1.73 sq M.predicted among non-blacks MDRD (S/P/Bld) [Vol rate/Area] 59 mL/min/1.73 m2 Normal >=59 [facility] Comment on above: Order Comment: Order added by Discern Expert. Result Comment: Settlement Agent jas kidney disease could be indicated at eGFR's of less than 60 mL/min/1.73m2. Kidney failure is indicated at less than 15 mL/min/1.73m2. Performed By: #### 1 3468027, 2381106, 7898165, 7211303 #### [facility] [address] [place] [address] BUNon 08-24-2022 Urea nitrogen [Mass/Vol] 23 mg/dL High 5-21 [facility] Comment on above: Performed By: #### 1 2105508, 8188381, 0797533, 4608496 #### [facility] [address] [place] [address] CHEMISTRYOrdered By: SYSTEM SYSTEM on 08-24-2022 Albumin [Mass/Vol] 4.0 g/dL Normal 3.3 - 5.0 gm/dL [facility] Albumin/Globulin [Mass ratio] 1.1 {ratio} Normal 1.1 - 2.2 [facility] ALP [Catalytic activity/Vol] 93 [iU]/d Normal 21 - 98 Int._Unit/L [facility] ALT No additional P-5'-P [Catalytic activity/Vol] 19 [iU]/d Normal 6 - 46 Int._Unit/L [facility] AST [Catalytic activity/Vol] 24 [iU]/d Normal 5 - 43 Int._Unit/L [facility] Bilirubin [Mass/Vol] 0.6 mg/dL Normal 0.0 - 1.1 mg/dL [facility] Bilirubin.direct [Mass/Vol] mg/dL Normal 0.1 - 0.4 mg/dL [facility] Bilirubin.indirec t [Mass or moles/Vol] Unable to Calculate mg/dL Invalid Interpretation Code 0.1 - 0.9 mg/dL [facility] Creatinine [Mass/Vol] 1.0 mg/dL Normal 0.5 - 1.3 mg/dL [facility] Remisol GFR/1.73 sq M.predicted among non-blacks MDRD (S/P/Bld) [Vol rate/Area] 59 mL/min/1.73 m2 Normal >=59mL/min/ 1.73 m2 [facility] Chem S Globulin (S) [Mass/Vol] 3.6 g/dL Normal 1.4 - 4.0 gm/dL [facility] Protein [Mass/Vol] 7.6 g/dL Normal 6.0 - 7.8 gm/dL [facility] Urea nitrogen [Mass/Vol] 23 mg/dL High 5 - 21 mg/dL [facility] Consent for Treatmenton Consent for Treatment [id number]:[address] [facility] Creatinineon 08-24-2022 Creatinine [Mass/Vol] 1.0 mg/dL Normal 0.5-1.3 [facility] Comment on above: Performed By: #### 1 6552312, 3244047, 8471250, 8520920 #### [facility] [address] [place] [address] Hep Func Panelon 08-24-2022 Bilirubin.indirec t [Mass or moles/Vol] UTC Abnormal 0.1-0.9 [facility] Comment on above: Result Comment: Resu lt verified by Discern Rule. Performed result UTC (Unable to Calculate) was sent as an Alpha code due the inability to calculate a valid numeric value. Performed By: #### 1 6259701, 7016280, 8557760, 6895718 #### [facility] [address] [place] [address] 41692 Albumin [Mass/Vol] 4.0 g/dL Normal 3.3-5.0 [facility] Comment on above: Performed By: #### 1 9745755, 8758425, 4247036, 9235047 #### [facility] [address] [place] [address] Albumin/Globulin (S) [Mass conc ratio] 1.1 Normal 1.1-2.2 [facility] Comment on above: Performed By: #### 1 6806619, 8089095, 5320155, 4880028 #### [facility] [address] [place] [address] 54081 ALP [Catalytic activity/Vol] 93 Int._Unit/L Normal 21-98 [facility] Comment on above: Performed By: #### 1 1931066, 0418413, 5309379, 0533740 #### [facility] [address] [place] [address] 33863 ALT No additional P-5'-P [Catalytic activity/Vol] 19 Int._Unit/L Normal 6-46 [facility] Comment on above: Performed By: #### 1 2846317, 3205520, 3641702, 7920329 #### [facility] [address] [place] [address] 6[address]64 AST [Catalytic activity/Vol] 24 Int._Unit/L Normal 5-43 [facility] Comment on above: Performed By: #### 1 1895861, 6017714, 5886269, 7649332 #### [facility] [address] [place] [address] 14742 Bilirubin [Mass/Vol] 0.6 mg/dL Normal 0.0-1.1 [facility] Comment on above: Performed By: #### 1 3672219, 3314755, 9864035, 6066868 #### [facility] [address] [place] [address] Globulin (S) [Mass/Vol] 3.6 g/dL Normal 1.4-4.0 [facility] Comment on above: Performed By: #### 1 6251226, 3999578, 4265339, 2300591 #### [facility] [address] [place] [address] Protein [Mass/Vol] 7.6 g/dL Normal 6.0-7.8 [facility] Comment on above: Performed By: #### 1 4543644, 7434045, 8785338, 0083704 #### [facility] [address] [place] [address] Bilirubin.direct [Mass/Vol] mg/dL Normal 0.1-0.4 [facility] Comment on above: Performed By: #### 1 0821206, 4798305, 5390326, 8863905 #### [facility] [address] [place] [address] Physician Orderon 08-24-2022 Physician Order [id number]#[id number]:[address] [facility] eGFRon 08-24-2022 GFR/1.73 sq M.predicted among non-blacks MDRD (S/P/Bld) [Vol rate/Area] 59 mL/min/1.73 m2 Normal >=59 [facility] Comment on above: Order Comment: Order Added by Discern Expert. Result Comment: Settlement Agent jas kidney disease could be indicated at eGFR's of less than 60 mL/min/1.73m2. Kidney failure is indicated at less than 15 mL/min/1.73m2. Performed By: #### 1 3122497, 6551203, 3961168, 5043323 #### [facility] [address] [place] [address] Cand[place] 08-22-2022 CNPN Telephone (ZeaKal) BRENDA MCCLAIN ([id number]) 1950 F Date Time Provider Department 08/22/22 MAYA GUIDRY CARYRachid During your visit today, we recorded the [...] Status:Closed by MAYA GUIDRY on 08/22/22 Normal [facility] FERRITIN BLDon 08-19-2022 Ferritin [Mass/Vol] 108.0 ng/mL 14.7 - 205.1 ng/mL [facility] Iron and Iron binding capaci ty panelon 08-19-2022 Iron [Mass/Vol] 143 ug/dL 41 - 186 ug/dL [facility] Iron binding capacity [Mass/Vol] 336 ug/dL 232 - 386 ug/dL [facility] Iron/TIBC [Molar ratio] 42.6 % 15.0 - 57.0 % [facility] Basic metabolic 2000 panelon 08-18-2022 Anion gap [Moles/Vol] 9 mmol/L Normal 9-18 [facility] Comment on above: Order Comment: Speci men Type: BLOOD SPECIMEN Ordering Facility: [facility] Address: [address] [place] [address] [place] [address] Performed By: #### 2 4321-2 #### [facility] CLIA [id number] [address] [place] [address] 15923 Calcium [Mass/Vol] 9.9 mg/dL Normal 8.5-10.2 [facility] Comment on above: Order Comment: Speci men Type: BLOOD SPECIMEN Ordering Facility: [facility] Address: [address] [address] Performed By: #### 2 4321-2 #### [facility] CLIA [id number] [address] [place] [address] 80197 Chloride [Moles/Vol] 102 mmol/L Normal 97-105 [facility] Comment on above: Order Comment: Speci men Type: BLOOD SPECIMEN Ordering Facility: [facility] Address: [address] [place] [address] Performed By: #### 2 4321-2 #### [facility] CLIA [id number] [address] [place] [address] 56795 CO2 [Moles/Vol] 29 mmol/L Normal 22-30 [facility] Comment on above: Order Comment: Speci men Type: BLOOD SPECIMEN Ordering Facility: [facility] Address: [address] [place] [address] Performed By: #### 2 4321-2 #### [facility] CLIA [id number] [address] [place] [address] 11526 Creatinine [Mass/Vol] 1.05 mg/dL High 0.58-0.96 [facility] Comment on above: Order Comment: Speci men Type: BLOOD SPECIMEN Ordering Facility: [facility] Address: [address] [place] [address] Performed By: #### 2 4321-2 #### [facility] CLIA [id number] [address] [place] [address] 62282 ESTIMATED GLOMERULAR FILTRATION RATE 56 mL/min/1.73m??? Low >=60 [facility] Comment on above: Order Comment: Speci men Type: BLOOD SPECIMEN Ordering Facility: [facility] Address: [address] [place] [address] Result Comment: Elsy mated Glomerular Filtration Rate [...] GFR. Performed By: #### 2 4321-2 #### [facility] CLIA [id number] [address] [place] [address] 87696 Glucose [Mass/Vol] 70 mg/dL Low 74-99 [facility] Comment on above: Order Comment: Ajay nath Type: BLOOD SPECIMEN Ordering Facility: [facility] Address: [address] [address] Result Comment: The [place] [employer] (ADA) provides guidance for cutoff [...] Standards of Medical Care in Diabetes 2016, [place] [employer]. Diabetes Care. 2016.39(Suppl 1). Performed By: #### 2 4321-2 #### [facility] CLIA [id number] [address] [place] [address] 31742 Potassium [Moles/Vol] 3.7 mmol/L Normal 3.7-5.1 [facility] Comment on above: Order Comment: Ajay nath Type: BLOOD SPECIMEN Ordering Facility: [facility] Address: [address] [address] Performed By: #### 2 4321-2 #### [facility] CLIA [id number] [address] [place] [address] 67471 Sodium [Moles/Vol] 140 mmol/L Normal 136-144 [facility] Comment on above: Order Comment: Ajay nath Type: BLOOD SPECIMEN Ordering Facility: [facility] Address: [address] [address] Performed By: #### 2 4321-2 #### [facility] CLIA [id number] [address] [place] [address] 12066 Urea nitrogen [Mass/Vol] 21 mg/dL Normal 7-21 [facility] Comment on above: Order Comment: Speci men Type: BLOOD SPECIMEN Ordering Facility: [facility] Address: [address] [id number] Performed By: #### 2 4321-2 #### [facility] CLIA [id number] [address] [place] [address] 97608 Anion gap [Moles/Vol] 9 mmol/L 9 - 18 mmol/L [facility] Calcium [Mass/Vol] 9.9 mg/dL 8.5 - 10.2 mg/dL [facility] Chloride [Moles/Vol] 102 mmol/L 97 - 105 mmol/L [facility] CO2 [Moles/Vol] 29 mmol/L 22 - 30 mmol/L [facility] Creatinine [Mass/Vol] 1.05 mg/dL High 0.58 - 0.96 mg/dL [facility] Estimated Glomerular Filtration Rate 56 mL/min/1.73m Low >=60 mL/min/1.73 m [facility] Glucose [Mass/Vol] 70 mg/dL Low 74 - 99 mg/dL [facility] Potassium [Moles/Vol] 3.7 mmol/L 3.7 - 5.1 mmol/L [facility] Sodium [Moles/Vol] 140 mmol/L 136 - 144 mmol/L [facility] Urea nitrogen [Mass/Vol] 21 mg/dL 7 - 21 mg/dL [facility] CBC W Auto Differential pane l (Bld)on 08-18-2022 Basophils (Bld) [#/Vol] 0.04 10*3/uL Normal <0.11 [facility] Comment on above: Order Comment: Speci men Type: BLOOD SPECIMEN Ordering Facility: [facility] Address: [address] [id number] Performed By: #### 5 7021-8 #### [facility] CLIA [id number] [address] [place] [address] 36601 Basophils/100 WBC (Bld) 0.6 % Normal [facility] Comment on above: Order Comment: Speci men Type: BLOOD SPECIMEN Ordering Facility: [facility] Address: [address] [address] Performed By: #### 5 7021-8 #### [facility] CLIA [id number] [address] [place] [address] 51713 Differential cell count method Nom (Bld) Auto Normal [facility] Comment on above: Order Comment: Speci men Type: BLOOD SPECIMEN Ordering Facility: [facility] Address: [address] [address] Performed By: #### 5 7021-8 #### [facility] CLIA [id number] [address] [place] [address] 76963 Eosinophils (Bld) [#/Vol] 0.21 10*3/uL Normal <0.46 [facility] Comment on above: Order Comment: Speci men Type: BLOOD SPECIMEN Ordering Facility: [facility] Address: [address] [address] Performed By: #### 5 7021-8 #### [facility] CLIA [id number] [address] [place] [address] 64479 Eosinophils/100 WBC (Bld) 3.3 % Normal [facility] Comment on above: Order Comment: Speci men Type: BLOOD SPECIMEN Ordering Facility: [facility] Address: [address] [address] Performed By: #### 5 7021-8 #### [facility] CLIA [id number] [address] [place] [address] 18688 Erythrocyte distribution width (RBC) [Ratio] 13.3 % Normal 11.5-15.0 [facility] Comment on above: Order Comment: Speci men Type: BLOOD SPECIMEN Ordering Facility: [facility] Address: [address] [address] Performed By: #### 5 7021-8 #### [facility] CLIA [id number] [address] [place] [address] 79211 Hematocrit (Bld) [Volume fraction] 41.1 % Normal 36.0-46.0 [facility] Comment on above: Order Comment: Speci men Type: BLOOD SPECIMEN Ordering Facility: [facility] Address: [address] [place] [address] Performed By: #### 5 7021-8 #### [facility] CLIA [id number] [address] [place] [address] 43767 Hemoglobin (Bld) [Mass/Vol] 13.8 g/dL Normal 11.5-15.5 [facility] Comment on above: Order Comment: Speci men Type: BLOOD SPECIMEN Ordering Facility: [facility] Address: [address] [place] [address] Performed By: #### 5 7021-8 #### [facility] CLIA [id number] [address] [place] [address] 21265 Immature granulocytes (Bld) [#/Vol] 0.03 10*3/uL Normal <0.10 [facility] Comment on above: Order Comment: Speci men Type: BLOOD SPECIMEN Ordering Facility: [facility] Address: [address] [place] [address] Performed By: #### 5 7021-8 #### [facility] CLIA [id number] [address] [place] [address] 60383 Immature granulocytes/100 WBC (Bld) 0.5 % Normal [facility] Comment on above: Order Comment: Speci men Type: BLOOD SPECIMEN Ordering Facility: [facility] Address: [address] [place] [address] Performed By: #### 5 7021-8 #### [facility] CLIA [id number] [address] [place] [address] 55904 Lymphocytes (Bld) [#/Vol] 1.99 10*3/uL Normal 1.00-4.00 [facility] Comment on above: Order Comment: Speci men Type: BLOOD SPECIMEN Ordering Facility: [facility] Address: [address] [address] Performed By: #### 5 7021-8 #### [facility] CLIA [id number] [address] [place] [address] 48077 Lymphocytes/100 WBC (Bld) 31.4 % Normal [facility] Comment on above: Order Comment: Speci men Type: BLOOD SPECIMEN Ordering Facility: [facility] Address: [address] [address] Performed By: #### 5 7021-8 #### [facility] CLIA [id number] [address] [place] [address] 05477 MCH (RBC) [Entitic mass] 31.7 pg Normal 26.0-34.0 [facility] Comment on above: Order Comment: Speci men Type: BLOOD SPECIMEN Ordering Facility: [facility] Address: [address] [address] Performed By: #### 5 7021-8 #### [facility] CLIA [id number] [address] [place] [address] 10221 MCHC (RBC) [Mass/Vol] 33.6 g/dL Normal 30.5-36.0 [facility] Comment on above: Order Comment: Speci men Type: BLOOD SPECIMEN Ordering Facility: [facility] Address: [address] [address] Performed By: #### 5 7021-8 #### [facility] CLIA [id number] [address] [place] [address] 76813 MCV (RBC) [Entitic vol] 94.3 fL Normal 80.0-100.0 [facility] Comment on above: Order Comment: Speci men Type: BLOOD SPECIMEN Ordering Facility: [facility] Address: [address] [place] [address] Performed By: #### 5 7021-8 #### [facility] CLIA [id number] [address] [place] [address] 62990 Monocytes (Bld) [#/Vol] 0.76 10*3/uL Normal <0.87 [facility] Comment on above: Order Comment: Speci men Type: BLOOD SPECIMEN Ordering Facility: [facility] Address: [address] [address] Performed By: #### 5 7021-8 #### [facility] CLIA [id number] [address] [place] [address] 39387 Monocytes/100 WBC (Bld) 12.0 % Normal [facility] Comment on above: Order Comment: Speci men Type: BLOOD SPECIMEN Ordering Facility: [facility] Address: [address] [address] Performed By: #### 5 7021-8 #### [facility] CLIA [id number] [address] [place] [address] 23632 Neutrophils (Bld) [#/Vol] 3.30 10*3/uL Normal 1.45-7.50 [facility] Comment on above: Order Comment: Speci men Type: BLOOD SPECIMEN Ordering Facility: [facility] Address: [address] [address] Performed By: #### 5 7021-8 #### [facility] CLIA [id number] [address] [place] [address] 70585 Neutrophils/100 WBC (Bld) 52.2 % Normal [facility] Comment on above: Order Comment: Speci men Type: BLOOD SPECIMEN Ordering Facility: [facility] Address: [address] Performed By: #### 5 7021-8 #### [facility] CLIA [id number] [address] [place] [address] 45936 Nucleated RBC (Bld) [#/Vol] 10*3/uL Normal <0.01 [facility] Comment on above: Order Comment: Speci men Type: BLOOD SPECIMEN Ordering Facility: [facility] Address: [address] Performed By: #### 5 7021-8 #### [facility] CLIA [id number] [facility] [place] [address] Nucleated RBC/100 WBC (Bld) [Ratio] 0.0 /100 WBC Normal [facility] Comment on above: Order Comment: Speci men Type: BLOOD SPECIMEN Ordering Facility: [facility] Address: [address] [place] [address] Performed By: #### 5 7021-8 #### [facility] CLIA [id number] [address] [place] [address] 47278 Platelet mean volume (Bld) [Entitic vol] 9.5 fL Normal 9.0-12.7 [facility] Comment on above: Order Comment: Speci men Type: BLOOD SPECIMEN Ordering Facility: [facility] Address: [address] [place] [address] Performed By: #### 5 7021-8 #### [facility] CLIA [id number] [address] [place] [address] 93580 Platelets (Bld) [#/Vol] 404 10*3/uL High 150-400 [facility] Comment on above: Order Comment: Speci men Type: BLOOD SPECIMEN Ordering Facility: [facility] Address: [address] [place] [address] Performed By: #### 5 7021-8 #### [facility] CLIA [id number] [address] [place] [address] 48537 RBC (Bld) [#/Vol] 4.36 10*6/uL Normal 3.90-5.20 [facility] Comment on above: Order Comment: Speci men Type: BLOOD SPECIMEN Ordering Facility: [facility] Address: [address] [place] [address] Performed By: #### 5 7021-8 #### [facility] CLIA [id number] [address] [place] [address] 20288 WBC (Bld) [#/Vol] 6.33 10*3/uL Normal 3.70-11.00 [facility] Comment on above: Order Comment: Speci men Type: BLOOD SPECIMEN Ordering Facility: [facility] Address: [place] [address] Performed By: #### 5 7021-8 #### [facility] CLIA [id number] [address] [place] [address] 88498 Basophils (Bld) [#/Vol] 0.04 10*3/uL <0.11 k/uL [facility] Basophils/100 WBC (Bld) 0.6 % [facility] Differential cell count method Nom (Bld) Auto [facility] Eosinophils (Bld) [#/Vol] 0.21 10*3/uL <0.46 k/uL [facility] Eosinophils/100 WBC (Bld) 3.3 % [facility] Erythrocyte distribution width (RBC) [Ratio] 13.3 % 11.5 - 15.0 % [facility] Hematocrit (Bld) [Volume fraction] 41.1 % 36.0 - 46.0 % [facility] Hemoglobin (Bld) [Mass/Vol] 13.8 g/dL 11.5 - 15.5 g/dL [facility] Immature granulocytes (Bld) [#/Vol] 0.03 10*3/uL <0.10 k/uL [facility] Immature granulocytes/100 WBC (Bld) 0.5 % [facility] Lymphocytes (Bld) [#/Vol] 1.99 10*3/uL 1.00 - 4.00 k/uL [facility] Lymphocytes/100 WBC (Bld) 31.4 % [facility] MCH (RBC) [Entitic mass] 31.7 pg 26.0 - 34.0 pg [facility] MCHC (RBC) [Mass/Vol] 33.6 g/dL 30.5 - 36.0 g/dL [facility] MCV (RBC) [Entitic vol] 94.3 fL 80.0 - 100.0 fL [facility] Monocytes (Bld) [#/Vol] 0.76 10*3/uL <0.87 k/uL [facility] Monocytes/100 WBC (Bld) 12.0 % [facility] Neutrophils (Bld) [#/Vol] 3.30 10*3/uL 1.45 - 7.50 k/uL [facility] Neutrophils/100 WBC (Bld) 52.2 % [facility] Nucleated RBC (Bld) [#/Vol] <0.01 k/uL [facility] Nucleated RBC/100 WBC (Bld) [Ratio] 0.0 /100 WBC [facility] Platelet mean volume (Bld) [Entitic vol] 9.5 fL 9.0 - 12.7 fL [facility] Platelets (Bld) [#/Vol] 404 10*3/uL High 150 - 400 k/uL [facility] RBC (Bld) [#/Vol] 4.36 10*6/uL 3.90 - 5.2 0 m/uL [facility] WBC (Bld) [#/Vol] 6.33 10*3/uL 3.70 - 11.00 k/uL [facility] CNOVSPon 08-18-2022 CNOVSP Visit (SP) Office ( [facility]) BRENDA MCCLAIN ([id number]) 1950 F Date Time Provider Department 08/18/22 [...] petechiae. LABOR (more content not included)... Normal [facility] Ferritin [Mass/Vol] 108.0 ng/mL Normal 14.7-205.1 [facility] Comment on above: Order Comment: Speci men Type: BLOOD SPECIMEN Ordering Facility: [facility] Address: [address] [place] [address] Performed By: #### 2 885-2, 9186-4, 97592-7 #### [facility] CLIA [id number] [address] [place] IMMUNOFIXATION SCREEN, SERUM on 08-18-2022 INTERPRETATION (MPA) Atypical restricted bands are present in the IgG and lambda regions. Consistent with IgG lambda monoclonal gammopathy. Normal [facility] Comment on above: Order Comment: Speci men Type: BLOOD SPECIMEN Ordering Facility: [facility] Address: [address] [place] [address] Performed By: #### I FESC #### [facility] CLIA [id number] [address] [place] [address] STATES [facility] MPA RESULT M protein is present. Abnormal No M protein is identified. [facility] Comment on above: Order Comment: Larai pham Type: BLOOD SPECIMEN Ordering Facility: [facility] Address: [address] [place] [address] Performed By: #### I FES #### [facility] CLIA [id number] [address] [place] [address] OF [place] STAFF REVIEW ([facility]) Reviewed by Zaira Fishman MD Normal [facility] Comment on above: Order Comment: Speci men Type: BLOOD SPECIMEN Ordering Facility: [facility] Address: [address] [place] [address] Performed By: #### I FESC #### [facility] CLIA [id number] [address] [place] [address] [place] IMMUNOGLOBULINS GAMon 2022 IgA [Mass/Vol] 335 mg/dL Normal 70-400 [facility] Comment on above: Order Comment: Larai men Type: BLOOD SPECIMEN Ordering Facility: [facility] Address: [address] [place] [address] Performed By: #### S ERIMM #### [facility] CLIA [id number] [facility] [id number] [address] [place] IgG [Mass/Vol] 1369 mg/dL Normal 700-1600 [facility] Comment on above: Order Comment: Speci men Type: BLOOD SPECIMEN Ordering Facility: [facility] Address: [address] Performed By: #### S ERIMM #### [facility] CLIA [id number] [address] [place] [address] [place] IgM [Mass/Vol] 151 mg/dL Normal 40-230 [facility] Comment on above: Order Comment: Speci men Type: BLOOD SPECIMEN Ordering Facility: [facility] Address: [address] Performed By: #### S ERIMM #### [facility] CLIA [id number] [address] [place] [address] [place] Iron and Iron binding capaci ty panelon 08-18-2022 Iron [Mass/Vol] 143 ug/dL Normal 41-186 [facility] Comment on above: Order Comment: Speci men Type: BLOOD SPECIMEN Ordering Facility: [facility] Address: [address] Performed By: #### 2 885-2, 2276-4, 75126-2 #### [facility] CLIA [id number] [address] [place] [address] [place] Iron binding capacity [Mass/Vol] 336 ug/dL Normal 232-386 [facility] Comment on above: Order Comment: Speci men Type: BLOOD SPECIMEN Ordering Facility: [facility] Address: [address] Performed By: #### 2 885-2, 2276-4, 07576-4 #### [facility] CLIA [id number] [address] [id number] [place] Iron/TIBC [Molar ratio] 42.6 % Normal 15.0-57.0 [facility] Comment on above: Order Comment: Speci men Type: BLOOD SPECIMEN Ordering Facility: [facility] Address: [address] [place] [address] Performed By: #### 2 885-2, 2276-4, 65220-8 #### [facility] CLIA [id number] [address] [place] [address] [place] KAPPA/GOMEZ,FREE,SERon 2022 Immunoglobulin light chains.kappa.free (S) [Mass/Vol] 32.1 mg/L High 3.3-19.4 [facility] Comment on above: Order Comment: Speci men Type: BLOOD SPECIMEN Ordering Facility: [facility] Address: [address] [place] [address] Result Comment: Rare ly, increased serum free light chains levels may not be detected or accurately quantified due to prozone phenomenon or in high viscosity samples using this immunoturbidimetric assay. Correlation with other laboratory results and clinical findings is recommended. The [place] Free Light Chain was performed using the Binding Site Optilite immunoturbidimetric method. Result obtained with different assay methods or kits cannot be used interchangeably. Performed By: #### K LFRS #### [facility] CLIA [id number] [address] [place] [address] [place] Immunoglobulin light chains.kappa/Immu noglobulin light chains.lambda (S) [Mass ratio] 1.10 Normal 0.26-1.65 [facility] Comment on above: Order Comment: Speci men Type: BLOOD SPECIMEN Ordering Facility: [facility] Address: [address] [place] [address] Performed By: #### K LFRS #### [facility] CLIA [id number] [address] [place] [address] [place] Immunoglobulin light chains.lambda.kurt e [Mass/Vol] 29.2 mg/L High 5.7-26.3 [facility] Comment on above: Order Comment: Speci men Type: BLOOD SPECIMEN Ordering Facility: [facility] Address: [address] [place], [place] [address] Result Comment: Rare ly, increased serum free [...] interchangeably. Performed By: #### K LFRS #### [facility] CLIA [id number] [address] [place] [address] [place] PROTEIN ELECTROPHORESIS SERU M WITH DARÍO (P)on 08-18-2022 Albumin [Mass/Vol] 4.20 g/dL Normal 3.43-5.41 [facility] Comment on above: Order Comment: Speci men Type: BLOOD SPECIMEN Ordering Facility: [facility] Address: [address] [place] [address] Performed By: #### L [id number] #### [facility] CLIA [id number] [address] [place] [address] [place] Alpha 1 globulin Elph [Mass/Vol] 0.29 g/dL Normal 0.18-0.43 [facility] Comment on above: Order Comment: Speci men Type: BLOOD SPECIMEN Ordering Facility: [facility] Address: [address] [place] [address] Performed By: #### L [id number] #### [facility] CLIA [id number] [address] [place] [address] [place] Alpha 2 globulin Elph [Mass/Vol] 0.60 g/dL Normal 0.42-0.98 [facility] Comment on above: Order Comment: Speci men Type: BLOOD SPECIMEN Ordering Facility: [facility] Address: [address] [place] [address] Performed By: #### L [id number] #### [facility] CLIA [id number] [facility] [place] [id number] [address] [place] Beta globulin Elph [Mass/Vol] 1.01 g/dL Normal 0.61-1.17 [facility] Comment on above: Order Comment: Ajay nath Type: BLOOD SPECIMEN Ordering Facility: [facility] Address: [address] [place] [address] Performed By: #### L [id number] #### [facility] CLIA [id number] [address] [place] [address] [place] COMMENT (SERUM PROT ELECTRO) Monoclonal Protein analysis (immunofixation) is not indicated. Normal [facility] Comment on above: Order Comment: Larai pham Type: BLOOD SPECIMEN Ordering Facility: [facility] Address: [address] [place] [address] Performed By: #### L [id number] #### [facility] CLIA [id number] [address] [place] [address] [place] Gamma globulin Elph [Mass/Vol] 1.30 g/dL Normal 0.53-1.51 [facility] Comment on above: Order Comment: Larai pham Type: BLOOD SPECIMEN Ordering Facility: [facility] Address: [address] [place] [address] Performed By: #### L [id number] #### [facility] CLIA [id number] [address] [place] [address] [place] INTERPRETATION COMMENT FOR PROTEIN ELECTROPHORESIS Normal [facility] Comment on above: Order Comment: Ajay pham Type: BLOOD SPECIMEN Ordering Facility: [facility] Address: [address] [place] [address] Result Comment: See separate immunofixation report for characterization of monoclonal gammopathy. M protein is present on the background of a polyclonal immunoglobulin population. Quantitation of the M protein may overestimate the amount of M protein present. Performed By: #### L [id number] #### [facility] CLIA [id number] [address] [place] [address] [place] M-PROTEIN LOCATION Gamma Fraction 1 Normal [facility] Comment on above: Order Comment: Speci men Type: BLOOD SPECIMEN Ordering Facility: [facility] Address: [address] Performed By: #### L [id number] #### [facility] CLIA [id number] [address] [place] [address] [place] Protein Fractions [Interp] An M protein is identified on protein electrophoresis. Abnormal No definitive M protein is identified on protein electrophor esis. [facility] Comment on above: Order Comment: Speci men Type: BLOOD SPECIMEN Ordering Facility: [facility] Address: [address] Performed By: #### L [id number] #### [facility] CLIA [id number] [address] [place] [address] [place] Protein.monoclona l Elph [Mass/Vol] 0.42 g/dL High <=0.00 [facility] Comment on above: Order Comment: Speci men Type: BLOOD SPECIMEN Ordering Facility: [facility] Address: [address] Performed By: #### L [id number] #### [facility] CLIA [id number] [address] [place] [address] [place] SPE STAFF REVIEW Reviewed by Zaira Fishman MD Normal [facility] Comment on above: Order Comment: Speci men Type: BLOOD SPECIMEN Ordering Facility: [facility] Address: [address] Performed By: #### L [id number] #### [facility] CLIA [id number] [address] [place] [address] [place] Prot SerPl-mCncon 08-18-2022 Protein [Mass/Vol] 7.4 g/dL Normal 6.3-8.0 [facility] Comment on above: Order Comment: Speci men Type: BLOOD SPECIMEN Ordering Facility: [facility] Address: [address] Performed By: #### 2 885-2, 2276-4, 64437-2 #### [facility] [place] [id number] [address] [place] [address] [facility] Coding Summary.on 05-26-2022 Coding Summary. CD:[id number] Ww+PGhlYWQ+ OF1TVRLwW63xyENgqK1kY0WTDShIWfs gDMBKFEiUSlTcnkIzNJ9tuLNqAXKc IC8+WI8nKFZsCwnnxIHdu3Y9eSS0Z09 unc6lFXielNW2TUZwCtWmqbojh4nzlD i5YPmzIqmmQsBk FBVzmH20XVQ5fQ90Rv81yXPbjCMzq2b neIi9RnRvQNTdZST0nQsiUPokh3AtEC IoM90fuGHwk7K3 HPBltCxhyZElTzHdtVR4sJ9xZFnyutc mv2yixderOgk0kz07lXTmc1J9oQC5U6 MmthY8GJZxmQBi HtwmlTBOtN3yrgxew4wxgwpgFkQbTQO rUNc4YYn3SOBcoDezUqZrBB57PYX5FT NhxyOgR8ToPYHx cJywQxC2e8T5Gy9JD2BEZeqnU0OKLYL SWTwvdGQ+NN21at06T3FpJkhgNrw9AF DwPPF0lEX3bU8q CXLqTHfzc0N2oBY5Z0KsmrJtfq8vk8h oFRHiQRgfF47lmYBmz0T1ZMSduTS7GZ DsuErqRrAocU29 Oyc+OBVawRhwz5SmOylfm6fmo2rmsBl 4HshaDUJnawUkwWicNSL0g6BoGv0rWJ OxiXY4iJS0vE8r BxFtEkK0SGidS679HvHwfQHdHnyhS07 cI1JihAJ+DYXeUhf6ZIBkdShzRR3nM8 BhZGRpbmctbGVm yNbvTC5bMNYfeidmMFMwtN4yGUUzH0g 1DlFcZnV4QLhfZ9MrKCWrpredZb64kC 7pDhIhBuP1XLvi Z0BaibZ0RKSplTSsASmqGCX3G78jo2Z 9MJUlITLiFCA0sSD9pZ2wdNawzsdteJ VmdDsgdmVydGlj RBxxUTztO067HOFqlAviMyFjAZwaTeS EYXRlOiAgMDQvMDYvMjAyMzwvdGQ+PH QlBNB4wMecCPEi iIMxRGcgOc7kuVpqhPvzNY7hJSFtrxv qBPCctT5vHZJsbZBqhUxkPG5iTPYmmh uma181ZjNvSXG3 CGFwgWIdK4JenH3wMuYtURDwKIKuE6C ebRHpGDxuN917HAvaNuC3QRCjmmFxE9 FsLWFsaWduOiB0 j5B6Fz0Rr7ZirhiaB9ZlyNAqWlZsPwh lZJa5X2SeRianxJT+OH66OGYuCZ25PJ r5SUQ3lMbsMSqm JHKnO4WsfK9fZwCbESAfRBBfHqt+PHR hYmxlIHdpZHRoPScxMDAlJyBzdHlsZT 5oBr5yJZZzOTYk nOixzYUyGvIwr8zyDVMoAOusKG2szMz yJ9RcbQQ3DCHrv2t2Wi92M36jC7AskE A+ISWnhYD1tLK8 sT0pFzHsFhQ2JZjuN282PoLdwVKkQnq wx0plm4knbVh7IaS0UCYvszOfbMueFC Q8s4LcAv05U35p HFcyHMVbOLOiOTJnDBVehBdkua2zhI7 wIi8+QVQzwKE9tUA2jG6tMsRdBsY2TK xbW921KfDexMJx Qmqgy3fxj9rzaJf5NzEwWBWwsoSqfIl pECH5q7PdPb99N8XxvJazv3OjBqa2po 84sCOuo1B0mDG6 B2KuSPOdkiqfnJCwfAhsYF3mVGPoewc oXQJpnM9bCLGeJ4x5UyCsYmS2HRsxF5 MybjD3HATzqXYs MADeyYFPxB2neoour5mprwdzTxGsWTU tZGl0ZSp5HZRebIleNoWhTKG9QcX3NT Q4bIQwfL7wrEsw jdrkbL6xUgy+MDK0kGKxzRBVKA8hUsv vdGQ+FZAuTMU8qJveSDyqUUJhrI0nMI SpA1s6TuJiJbW9 FLzaH6QbkvP6RUAfuLAsBQLnzOUKxY5 glbxmb8ilxngoJwFdBGSkWWt4EJk9SG FsaWduOiBsZWZ0 AjZ4BKR6aIWjcR4mvMgsyduysW3pSfr +AbjuuHysLQQ8QXu4O4YdAev2ZQSofI dsBA8ijJHpLUua Hg2hbBwsbEjvFO3tXSOyqxnlr714EeB ob4mlBMNcbQWgOOhvEIB7B49gp6U0LY EtGLChVDC4qHO6 bS1dxDpvphfkpVEjqJlmblYbpBblDIv vXNdoJ747GOUzpRerHsHnSSd6K7MkKm t6QOFcjRelDV7s mSIxOIwrQl0iqDrlpKdgCN5vXMMmvwq ix510IrKzs8ydWUYfoGNyJVgjCMZ2G9 4uy0Y8THXuDBJl UVR2zVN2aK0idDtzubmrcUVzvXzmhqQ usGrtPPmkCYrxF583IKShwVxmXaPjoR f3A7PyEeg3EXGv uAkkVW4yuHLiFQcmLw3fmTjwzDraPX0 pMGKnrmdmz061JgVzm2gmBNXnxOBrQG luMYF3X80rh6C1 SVGmPPGmZHF6vUD1jB9fyXdtjjsgfEU xaWfhifBzeAdqQJtjHCexQ560URTguU snPlBhdGllbnQg YNkpTAl4G5IrXnnuaEC+FA40PYDuJR1 8oKZkeSLyp2hgcFq7AdNfKLNfZXO9yO kmCNxsw2ShGCVm J68veVNha3R1GHTzvLgujKClRcZkeXI 5nX4uIRcbasbzz2bwesxeUzcwe2lgiw 86oZ75H14nRNca JAImOJDtHTOpLBAceEnafi7fiI7nSq9 +ZFZdgUS6fHK9rP6nKCJoOrZ6RGhyT5 49InRvcCIvPjxj h3cex2dmqWg9NdB9TFAdzrBgbItgOHW 9c0XuFc89K28zZCfkOXLgZZLfWVJjPY OoxNfkkk3ieR8i Ii8+JOLehQZ6jBC7lU6vAhJfIkC0EOa uE360EkApoHMrSfhhO11qQ8PyoCT+PH EdDyz9IBXqoEdn QX0krGNhRXbkDb7oGVI4QvPaGzTuYRi iI5XfGDZibvliqlkxhIJ7UDPbJLQnwQ 54Lb1ntJjjYUDs bYTCmT7ksxzce9zuuwkrPaBwZOStHOn 6VTu2QVOawZqwAoOaWKR3QuS4MEX8pU QzcQ7jpFdecjtp kH3wQ7KpBIPkrvqgFw81hB8nLjBpHzP 1MGluOyc+SzPSAFnlYJDLZ9tZKQu8F7 CiKfd1MSBhhMxk NR0bpDZeYRcfEy5pnFeckUeqJL9eVDF huzmzSUBhfP7kEEKsyNMcwDuaYA8pZA Itzsohk211UrAr CXU1PAJvzQReN4OuaK8uDuSnJLTaEHX uV5UxvPHyFBmrM557AHnwDyX6TUAkve WxB6OlRGNsgMhy VaX3c6H8Et4uHR1qIT4xBLE2VW90MM5 9lCZxk9I7sWZ1L7RtOTHgqvqspitvpM R7BKVoUCFdeL11 jXPrAGllSt4gf5C0o463ZGFwPGUpgH1 6Zq4oqKauPGPoxXTDaY1rqobrh4godv ogIzAwMDAwMDt0 TAv2DPJpyAshWhKmRIF7HsW9QFO6zAW txE2ejUerdpmveY3mZcx+NzQgWWVhcn U0U5JcTpv9XZGq eZnhNZ6pjOVuAQyqXg7sbTztkBquXO3 aYXTimhjjQTJntX3jAEOxhRNweHfiYZ 2oKUSnqrzsv493 WwUhTLF8DCApmPBlS6JurS0sPdOpTMU oSBImR5IzgOZaHYolG942DKcrSiX6IB JrlyPmA6FwCXMo jHnuTbL8d6D4Ij5IIH0hqKV7I6ToKfi 0ZGUqnOuxYB2fyZQxDNxnGz9bfNqgwF lcBR6xKQNseykm QQOlyZ2tXXSoiVEzxCibPZ3yUASucgy aw029BbAkSOD0CNTqnRKsR7TvgR0oNq JeMIGdEBZqC6Bi kUZlAHssC786FFlaPgS8HVEtepTcD1P xMORirVnaFwA0u5L9Wy8HhQFlKQLfXI 69YY66JW94A9Xa PjwvdGFibGU+PHRhYmxlIHdpZHRoPSc aRDXaTjEjjIrkZD9nEd3uUFJfQJSyfY jhnOKsKpCmu6hn OYIdLCarOC1qwWwaL4OpqLP6TFBpi6t 3Cl55A66rA2GuzSU+QJEhpWB9sGN4sY 4kXbXcFhC8KKpd J211VcPtcFEdJuqvq5mfe8pstKq9EgY eMVTqzbYiaZjwRWZ5i6ZqVb74U88hUF dpZHRoPSIyMCUi ZBPtcAtxay7xfG3oZi4+SQNhvVJ4iGU 6wZ4bKtGtNsJ6ACvkG355VaEhiABiXb qyN39vR7OobBV+ WBOjFik4BOLuvWtxCR5hdYIhFWeaSt2 eELP5ZxUlGuIjKPheP8JaSLEhudjkon cieSX3PJNdKODn aX62Hx9alQlaXt7xXIOkQCF4ZOErfBT pK0VpuL4bEkHxRGZxKTCrW2CmnOIzXM peH253SWwtAdE2 HPUtjsNyN7YaCZLiwFnjBfV2y3K0Us8 UoFpzeUOvXH4xIeBvNQb5K8FpFkw9BF GuwQxnHD4tvFFs VPmvVg8lfNlkhIlsHY0qFSBfjdfzp45 6UpWxz6ljOOAuyUJqUIqiBAV9S81bu1 P8SOCdYXPmYJT7 zLM1fR1evWaahdtetYHmkMybqjRcdWo aWQbnISmzS099NKOilGefJqLAAic3P9 XcZkp9NTZpnTzb QN3prKRlCBnzKo7fqMgmvJvtEN7tQKC srjkjn633VhOks8rnJJSfoQIzSPahIP D8C09dx7U5ICGe IJHrTBD2cXM4wE9tbXhhxfntkOCnwAa cnzQrmRkoMIfpWEvlB264WPWgiNpvIw 6AMvj1K6PrVgh2 ASTvrZrgIT7mhXTlPNhsUb4jpFvshSs xFP2bESCktymnc029LjLcr3bdPNXmbK MzKFvpACV3E07u k8L7AJLyNXNzXOT9wNH7fE0gaQezxxy bpLXhgQljzqDimFuaOBrkOZvhV138QW RvcDsnPlBheWVy OjwvdGQ+GH87gi95O5VtLsxlYfe9JTL nUUC5yVO6wE3sPKGbPMvnz9Q8fHL3T2 XsjyZcuv3at9ay YXBzZTog (more content not included)... Normal [facility] [place] Mamm Screen w/CAD if perf [...] very important to your health. The current [place] [employer] and National [employer] guidelines recommends annual mammography beginning at age 40. This facility utilizes a reminder system to ensure all patients receive reminder notifications at the appropriate time based on the recommendations of this exam. Board Certified Radiologists. Accredited by the ACR and FDA. Ordering Provider: REFERRAL, SELF FINAL REPORT Dictated: 05/19/2022 11:48 am Gavin Hodges M.D. Signed (Electronic Signature): 05/19/2022 11:48 am Signed by: Gavin Hodges M.D. Transcribed by: OLESYA Technologist: BIANKA Assessment: BI-RADS Category 1-Negative Recommendation: Normal interval follow-up Normal [facility] Consent for Treatmenton 03- Consent for Treatment [id number] Antolin Cohen [facility] Candido 08-26-2021 CNPN Telephone (HEMAS[place]) RAYOBRENDA Miller ([id number]) 1950 F Date Time Provider Department 08/26/21 [...] Status:Closed by TELLO MAK on 08/26/21 Normal [facility] Complete Blood Count with Au to Diffon 04-13-2021 Basophils (Bld) [#/Vol] 0.06 10*3/uL Normal 0.00-0.20 [facility] Director Hris Comment on above: Performed By: #### C MP, LIPD, CBCAD #### [facility] [address] [place], [place] [id number] Basophils/100 WBC (Bld) 0.8 % Normal [facility] Director Hris Comment on above: Performed By: #### C MP, LIPD, CBCAD #### [facility] [address] [place], [place] [id number] Eosinophils (Bld) [#/Vol] 0.52 10*3/uL High 0.02-0.50 [place] Director Hris Comment on above: Performed By: #### C MP, LIPD, CBCAD #### [facility] [address] [place], [place] [id number] Eosinophils/100 WBC (Bld) 7.3 % Normal [facility] Comment on above: Performed By: #### C MP, LIPD, CBCAD #### [facility] [address] [place], [place] [id number] Erythrocyte distribution width (RBC) [Ratio] 13.1 % Normal 11.0-15.0 [facility] Comment on above: Performed By: #### C MP, LIPD, CBCAD #### [facility] [address] [place], [place] [id number] Hematocrit (Bld) [Volume fraction] 43.9 % Normal 35.0-47.0 [facility] Comment on above: Performed By: #### C MP, LIPD, CBCAD #### [facility] [address] [place], [place] [id number] Hemoglobin (Bld) [Mass/Vol] 14.5 g/dL Normal 11.6-15.5 [facility] Comment on above: Performed By: #### C MP, LIPD, CBCAD #### [facility] [address] [place], [place] [id number] Lymphocytes (Bld) [#/Vol] 2.4 10*3/uL Normal 0.9-3.9 [facility] Comment on above: Performed By: #### C MP, LIPD, CBCAD #### [facility] [address] [place], [place] [id number] Lymphocytes/100 WBC (Bld) 34.2 % Normal [facility] Comment on above: Performed By: #### C MP, LIPD, CBCAD #### [facility] [address] [place], [place] [id number] MCH (RBC) [Entitic mass] 31.6 pg Normal 27.0-33.0 [facility] Comment on above: Performed By: #### C MP, LIPD, CBCAD #### [facility] [address] [place], [place] [id number] MCHC (RBC) [Mass/Vol] 33.0 g/dL Normal 32.0-36.0 [facility] Hris Comment on above: Performed By: #### C MP, LIPD, CBCAD #### [facility] [address] [place], [place] [id number] MCV (RBC) [Entitic vol] 96 fL Normal 80-100 [facility] Hris Comment on above: Performed By: #### C MP, LIPD, CBCAD #### [facility] [address] [place], [place] [id number] Monocytes (Bld) [#/Vol] 0.9 10*3/uL Normal 0.2-0.9 [facility] Hris Comment on above: Performed By: #### C MP, LIPD, CBCAD #### [facility] [address] [place], [place] [id number] Monocytes/100 WBC (Bld) 13.0 % Normal [facility] Hris Comment on above: Performed By: #### C MP, LIPD, CBCAD #### [facility] [address] [place], [place] [id number] Neutrophils (Bld) [#/Vol] 3.2 10*3/uL Normal 1.5-7.8 [facility]ris Comment on above: Performed By: #### C MP, LIPD, CBCAD #### [facility] [address] [place], [place] [id number] Neutrophils/100 WBC (Bld) 44.3 % Normal [facility] Hris Comment on above: Performed By: #### C MP, LIPD, CBCAD #### [facility] [address] [place], [place] [id number] Platelet mean volume (Bld) [Entitic vol] 10.30 fL Normal 7.50-12.50 [facility]ris Comment on above: Performed By: #### C MP, LIPD, CBCAD #### [facility] [address] [place], [place] [id number] Platelets (Bld) [#/Vol] 453 10*3/uL High 140-400 [facility]ris Comment on above: Performed By: #### C MP, LIPD, CBCAD #### [facility] [address] [place], [place] [id number] RBC (Bld) [#/Vol] 4.59 10*6/uL Normal 3.90-5.20 [facility] Comment on above: Performed By: #### C SARAH BETH HOLGUIND, CBCAD #### [facility] [address] [place], [place] [id number] RDW-SD 45.7 fL Normal 37.0-50.0 [facility] Comment on above: Performed By: #### C MP, LIPD, CBCAD #### [facility] [address] [place], [place] [id number] WBC (Bld) [#/Vol] 7.1 10*3/uL Normal 3.8-11.0 [facility] Comment on above: Performed By: #### C SARAH BETH HOLGUIND, CBCAD #### [facility] [address] [place], [place] [id number] Comprehensive Metabolic Pane alfonzo 04-13-2021 Albumin [Mass/Vol] 4.5 g/dL Normal 3.6-5.1 [facility] Comment on above: Performed By: #### C CHELSIE, LIPD, CBCAD #### [facility] [address] [place], [place] [id number] Albumin/Globulin [Mass ratio] 1.6 {ratio} Normal 1.0-2.5 [facility] Comment on above: Performed By: #### C CHELSIE, LIPD, CBCAD #### [facility] [address] [place], [place] [id number] ALP [Catalytic activity/Vol] 125 U/L High 35-119 [facility] Comment on above: Performed By: #### C MP, LIPD, CBCAD #### [facility] [address] [place], [place] [id number] ALT [Catalytic activity/Vol] 12 U/L Normal 6-33 [facility] Comment on above: Result Comment: 01/20 Female reference range changed. Performed By: #### C MP, LIPD, CBCAD #### [facility] [address] [place], [place] [id number] Anion gap [Moles/Vol] 20 mmol/L Normal 12-20 [facility] Comment on above: Result Comment: Effe ctive 02/25/2019 reference range changed. Performed By: #### C MP, LIPD, CBCAD #### [facility] [address] [place], [place] [id number] AST [Catalytic activity/Vol] 20 U/L Normal 9-34 [facility] Comment on above: Performed By: #### C MP, LIPD, CBCAD #### [facility] [address] [facility] [place] [id number] Bilirubin [Mass/Vol] 0.55 mg/dL Normal 0.30-1.20 [facility] Comment on above: Performed By: #### C MP, LIPD, CBCAD #### [facility] [address] [place], [place] [id number] BUN/CREA 22 Ratio Normal 6-22 [facility] Comment on above: Performed By: #### C MP, LIPD, CBCAD #### [facility] [address] [place], [place] [id number] Calcium [Mass/Vol] 10.1 mg/dL Normal 8.6-10.2 [facility] Comment on above: Performed By: #### C MP, LIPD, CBCAD #### [facility] [address] [place], [place] [id number] Chloride [Moles/Vol] 104 mmol/L Normal 98-107 [facility] Comment on above: Performed By: #### C MP, LIPD, CBCAD #### [facility] [address] [place], [place] [id number] CO2 [Moles/Vol] 24 mmol/L Normal 20-31 [facility] Hris Comment on above: Performed By: #### C MP, LIPD, CBCAD #### [facility] [address] [facility] [place] [id number] Creatinine [Mass/Vol] 0.9 mg/dL Normal 0.6-1.4 [facility] Comment on above: Performed By: #### C MP, LIPD, CBCAD #### [facility] [address] [facility] [place] [id number] eGFRAA 71 mL/min/1.73m2 Normal >60 [facility] Comment on above: Performed By: #### C MP, LIPD, CBCAD #### [facility] [address] [place], [place] [id number] eGFRNAA 58 mL/min/1.73m2 Low >60 [facility] Comment on above: Performed By: #### C LAURA HOLGUIN, CBCAD #### [facility] [address] [place], [place] [id number] Globulin (S) [Mass/Vol] 2.8 g/dL Normal 1.9-3.7 [facility] Comment on above: Performed By: #### C LAURA HOLGUIN, CBCAD #### [facility] [address] [place], [place] [id number] Glucose [Mass/Vol] 110 mg/dL High 65-99 [facility] Director Hris Comment on above: Result Comment: For FASTING Glucose --- ADA reference ranges: Normal 65-99 mg/dl Prediabetes 100-125 Diabetes >/= 126 Performed By: #### C LAURA HOLGUIN, CBCAD #### [facility] [address] [place], [place] [id number] Potassium [Moles/Vol] 4.3 mmol/L Normal 3.5-5.5 [facility]ris Comment on above: Performed By: #### C LAURA HOLGUIN, CBCAD #### [facility] [address] [place], [place] [id number] Protein [Mass/Vol] 7.3 g/dL Normal 6.1-8.1 [facility]ris Comment on above: Performed By: #### C LAURA HOLGUIN, CBCAD #### [facility] [address] [place], [place] [id number] Sodium [Moles/Vol] 143 mmol/L Normal 135-146 [facility]ris Comment on above: Performed By: #### C LAURA HOLGUIN, CBCAD #### [facility] [address] [place], [place] [id number] Urea nitrogen [Mass/Vol] 20 mg/dL Normal 7-25 [facility]ris Comment on above: Performed By: #### C LAURA HOLGUIN, CBCAD #### [facility] [address] [place], [place] [id number] Lipid Panelon 04-13-2021 Cholesterol [Mass/Vol] 196 mg/dL Normal 125-200 [facility]ris Comment on above: Result Comment: Low risk < 200mg/dL Borderline risk 201-239 mg/dl High risk > or equal to 240 Performed By: #### C LAURA HOLGUIN, CBCAD #### [facility] [address] [place], [place] [id number] Cholesterol in HDL [Mass/Vol] 46 mg/dL Normal >40 [facility]ris Comment on above: Result Comment: High Cardiovascular Risk HDL <40 mg/dL Low Cardiovascular Risk HDL > or equal to 60 mg/dl Performed By: #### C CHELSIE, LIPD, CBCAD #### [facility] [address] [place], [place] [id number] Cholesterol in LDL [Mass/Vol] 98 mg/dL Normal [facility] Comment on above: Result Comment: LDL ATP III CLASSIFICATION LDL less than 100 mg/dl Optimal LDL 100-129 mg/dl Near or above optimal LDL 130-159 Borderline high LDL 160-189 High LDL greater than 189 mg/dl Very High Performed By: #### C CHELSIE, LIPD, CBCAD #### [facility] [address] [facility] [id number] Cholesterol in VLDL [Mass/Vol] 52 mg/dL Normal [facility] Hris Comment on above: Performed By: #### C LAURA HOLGUIN, CBCAD #### [facility] [address] [place], [place] [id number] Cholesterol.total /Cholesterol in HDL [Mass ratio] 4 {ratio} Normal [facility] Comment on above: Performed By: #### C SARAH BETH HOLGUIND, CBCAD #### [facility] [address] [facility] [place] [id number] Triglyceride [Mass/Vol] 262 mg/dL High 30-150 [facility] Director Hris Comment on above: Result Comment: TRIG ATPIII CLASSIFICATIONS TRIG less than 150 mg/dl Normal TRIG 150-199 mg/dl Borderline High TRIG 200-500 mg/dl High TRIG greather than 500 mg/dl Very High Performed By: #### C CHELSIE, LIPD, CBCAD #### [facility] [address] [place] [id number] Basic Metabolic Panlon 02-17 Anion gap 3 molar conc 9 mmol/L Normal 9-18 [facility] Comment on above: Performed By: #### C BCDIF, BMP, MG1, PHOS, PT ####[place] [phone] Calcium mass conc 8.5 mg/dL Normal 8.5-10.5 [facility] Comment on above: Performed By: #### C BCDIF, BMP, MG1, PHOS, PT ####[place] [phone] Chloride molar conc 109 mmol/L Normal 98-110 [facility] Comment on above: Performed By: #### C BCDIF, BMP, MG1, PHOS, PT ####[place] [phone] CO2 molar conc 25 mmol/L Normal 23-32 [facility] Comment on above: Performed By: #### C BCDIF, BMP, MG1, PHOS, PT ####[place] [phone] Creatinine mass conc 0.62 mg/dL Low 0.70-1.40 [facility] Comment on above: Performed By: #### C BCDIF, BMP, MG1, PHOS, PT ####[place] [phone] eGFR- Amer. >60 Normal >60 [facility] Comment on above: Performed By: #### C BCDIF, BMP, MG1, PHOS, PT ####[place] [phone] GFR/1.73 sq M predicted among non-blacks MDRD vol rate/area (S/P/Bld) mL/min/{1.73_m2} Normal >60 [facility] Comment on above: Performed By: #### C BCDIF, BMP, MG1, PHOS, PT ####[place] [phone] Glucose mass conc 109 mg/dL High 65-100 [facility] Comment on above: Performed By: #### C BCDIF, BMP, MG1, PHOS, PT ####[place] [phone] Potassium molar conc 3.5 mmol/L Normal 3.5-5.0 [facility] Comment on above: Performed By: #### C BCDIF, BMP, MG1, PHOS, PT ####[place] [phone] Sodium molar conc 143 mmol/L Normal 132-148 [facility] Comment on above: Performed By: #### C BCDIF, BMP, MG1, PHOS, PT ####[place] [phone] Urea nitrogen mass conc 6 mg/dL Low 8-25 [facility] Comment on above: Performed By: #### C BCDIF, BMP, MG1, PHOS, PT ####[place] [phone] CBC and Differentialon 02-17 Abs Baso <0.03 Normal <0.11 [facility] Comment on above: Performed By: #### C BCDIF, BMP, MG1, PHOS, PT ####[place] [phone] Abs [place] 1.46 k/uL High <0.87 [facility] Comment on above: Performed By: #### C BCDIF, BMP, MG1, PHOS, PT ####[place] [phone] Abs Neut 7.50 k/uL Normal 1.45-7.50 [facility] Comment on above: Performed By: #### C BCDIF, BMP, MG1, PHOS, PT ####[place] [phone] Basophils/100 WBC Auto (Bld) 0.2 % Normal [facility] Comment on above: Performed By: #### C BCDIF, BMP, MG1, PHOS, PT ####[place] [phone] DTYPE Auto Diff Normal [facility] Comment on above: Performed By: #### C BCDIF, BMP, MG1, PHOS, PT ####[place] [phone] Eosinophils Auto #/vol (Bld) 0.29 10*3/uL Normal <0.46 [facility] Comment on above: Performed By: #### C BCDIF, BMP, MG1, PHOS, PT ####[place] [address] Eosinophils/100 WBC Auto (Bld) 2.8 % Normal [facility] Comment on above: Performed By: #### C BCDIF, BMP, MG1, PHOS, PT ####[place] [phone] Erythrocyte distribution width Auto Ratio (RBC) 16.5 % High 11.5-15.0 [facility] Comment on above: Performed By: #### C BCDIF, BMP, MG1, PHOS, PT ####[place] [phone] Hematocrit Auto Volume Fraction (Bld) 30.2 % Low 36.0-46.0 [facility] Comment on above: Performed By: #### C BCDIF, BMP, MG1, PHOS, PT ####[place] [address] Hemoglobin mass conc (Bld) 9.5 g/dL Low 11.5-15.5 [facility] Comment on above: Performed By: #### C BCDIF, BMP, MG1, PHOS, PT ####[place] [address] Lymphocytes Auto #/vol (Bld) 0.95 10*3/uL Low 1.00-4.00 [facility] Comment on above: Performed By: #### C BCDIF, BMP, MG1, PHOS, PT ####[place] [phone] Lymphocytes/100 WBC Auto (Bld) 9.3 % Normal [facility] Comment on above: Performed By: #### C BCDIF, BMP, MG1, PHOS, PT ####[place] [phone] MCH Auto Entitic mass (RBC) 28.7 pG Normal 26.0-34.0 [facility] Comment on above: Performed By: #### C BCDIF, BMP, MG1, PHOS, PT ####[place] [phone] MCHC Auto mass conc (RBC) 31.5 g/dL Normal 30.5-36.0 [facility] Comment on above: Performed By: #### C BCDIF, BMP, MG1, PHOS, PT ####[place] [phone] MCV Auto Entitic volume (RBC) 91.2 fL Normal 80.0-100.0 [facility] Medicine Comment on above: Performed By: #### C BCDIF, BMP, MG1, PHOS, PT ####[place] [phone] Monocytes/100 WBC Auto (Bld) 14.3 % Normal [facility] Comment on above: Performed By: #### C BCDIF, BMP, MG1, PHOS, PT ####[place] [phone] Neutrophils/100 WBC Auto (Bld) 73.4 % Normal [facility] Comment on above: Performed By: #### C BCDIF, BMP, MG1, PHOS, PT ####[place] [phone] Platelet mean volume Auto Entitic volume (Bld) 9.6 fL Normal 9.0-12.7 [facility] Comment on above: Performed By: #### C BCDIF, BMP, MG1, PHOS, PT ####[place] [phone] [place] [phone] Platelets Auto #/vol (Bld) 248 10*3/uL Normal 150-400 [facility] Comment on above: Performed By: #### C BCDIF, BMP, MG1, PHOS, PT ####[place] [phone] RBC Auto #/vol (Bld) 3.31 10*6/uL Low 3.90-5.20 [facility] Comment on above: Performed By: #### C BCDIF, BMP, MG1, PHOS, PT ####[place] [phone] WBC Auto #/vol (Bld) 10.22 10*3/uL Normal 3.70-11.00 [facility] Comment on above: Performed By: #### C BCDIF, BMP, MG1, PHOS, PT ####[place] [phone] Magnesiumon 02-17-2018 Magnesium mass conc 2.0 mg/dL Normal 1.7-2.6 [facility] Comment on above: Performed By: #### C BCDIF, BMP, MG1, PHOS, PT ####[place] [phone] NURSING PROGon 02-17-2018 Protein mass conc HNO ID: [id number] thor: Heidy (Rn) Tamar, RNService: (none)Author Type: Registered NurseType: Nursing Progress NoteFiled: 02/17/2018 1:46 PMNote Text: Nursing Progress NotePatient Name: Brenda Miller CoryN: [id number] Location: [facility]3B13/SL-EC5B-36 walked with patient on RA satting 94%.0917 SROC paged [id number] Brenda Mcclain: phos 1.4 this AM does she needanything? Thanks, Heidy [id number] Juarez CM [facility] is set up.This note was completed by: Heidy Boyle RN [facility] Protein mass conc HNO ID: [id number] thor: Franchesca (Rn) Concepción, RNService: NursingAuthor Type: Registered NurseType: Nursing Progress NoteFiled: 02/17/2018 12:33 AMNote Text: Nursing Progress NotePatient Name: Brenda McclainMRN: [id number] Location: [facility]/MI-ZQ2V-61 Daily Note:AANDO times 3. Patient has pain in abdomen states it feels like apressure and like gas pain. Patient has pain 4/10 given prn painmedications per APR. Patients incision and lap sites have no [...] note was completed by: Franchesca Beebe RN [facility] Phosphoruson 02-17-2018 Phosphate mass conc 1.4 mg/dL Low 2.5-4.5 [facility] Comment on above: Performed By: #### C BCDIF, BMP, MG1, PHOS, PT ####[facility] [place], [place] [phone] Protimeon 02-17-2018 INR Coag RelTime (Bld) 1.0 {INR} Normal 0.9-1.3 [facility] Comment on above: Result Comment: Danni min K Antagonist (VKA) Therapeutic Range: INR 2 to 3 (Target INR of 2.5)Note: For patients treated with VKA drugs, such as warfarin, the [place] [employer] 2012 Guideline recommends [...] al. Chest 2012, 141:7S-47SNishimiam RA, et al. [facility] 2017, 70: 252-289 Performed By: #### C BCDIF, BMP, MG1, PHOS, PT ####[facility] [place], [place] [phone] PT Sec 10.6 sec Normal 9.7-13.0 [facility] Comment on above: Performed By: #### C BCDIF, BMP, MG1, PHOS, PT ####[facility] [place], [place] [phone] Amylase,Body Fluidon 018 Amylase,Body Fluid 142 U/L Critically abnormal See Comment [facility] Comment on above: Result Comment: (NOT E)PLEURAL [...] CLSI document C49-A. JOSEFINA Giordano: Clinical LaboratoryStandards [place]; 2007.3. Donovan CL, Neel RC, Renzo DJ. Use of cyst fluid CEA,CA19-9, and amylase for evaluation of pancreatic lesions. ClinicalBiochemistry. 2009;42:2918-4830.This test was developed and its performance characteristicsdetermined by [facility] and[facility] [place] ([facility]).It has not been cleared or approved by the FDA. [facility] is regulatedunder CLIA as qualified to perform high-complexity testing.This test is used for clinical purposes. It should not be regarded asinvestigational or for research. Performed By: #### F AMYL ####[place] [address] Fluid Type Other Normal [facility] Comment on above: Result Comment: ACE D RAIN ABDOMEN Performed By: #### F AMYL ####[place] [phone] [place] [phone] CASE MANAGEMon 02-16-2018 CASE MANAGEM HNO ID: [id number] thor: Luisito Garnica (Rn) TRUDY Billervice: Case ManagementAuthor Type: Registered NurseType: Care Mgt Progress NoteFiled: 02/16/2018 1:55 PMNote Text:CARE MANAGEMENT DISCHARGE NOTESERVICE DATE: 02/16/2018SERVICE TIME: 1:55 PM LOS: 2 daysIM letter given to patient on 02.16.2018.SIGNATURE: Luisito Bill RN PATIENT NAME: Brenda Cooper: February 16, 2018 : 1:55 PM PAGER/CONTACT #: [phone] [facility] CASE MANAGEM HNO ID: [id number] thor: Luisito AlmarazRn) TRUDY Billervice: Case ManagementAuthor Type: Registered NurseType: Care Mgt Progress NoteFiled: 02/16/2018 1:44 PMNote Text:CARE MANAGEMENT DISCHARGE NOTESERVICE DATE: 02/16/2018SERVICE TIME:1:43 PM LOS: 2 days d/c plan is faye mehta [facility] # [phone] set to see pt Aciely1702.18.2018 pending d/cSIGNATURE: Luisito Bill RN PATIENT NAME: Brenda Cooper: February 16, 2018 : 1:43 PM PAGER/CONTACT #: [phone] [facility] CASE MGT INIT ASSESon 2017 CASE MGT INIT ASS HNO ID: [id number]: Luisito AlmarazRn) TRUDY Billervice: Case ManagementAuthor Type: Registered NurseType: Care Mgt Initial AssessmentFiled: 02/16/2018 9:01 AMNote Text:CARE MANAGEMENT: ASSESSMENT AND DISCHARGE PLANSERVICE DATE: 02/16/2018SERVICE TIME: 8:58 AMPRIMARY CARE PHYSICIAN:Pam Villalobos, DIMITRIOShone: [phone] STATUS: InpatientMEDICAL:Patient/Repres entative Stated Goals:To improve my functional statusHealth Insurance: MEDICARE A AND BMedicareHealth Issues Impacting Discharge Plan: IBSLast Admission Date: Previous admit date: 01/23/2008Is this Within the Past 30 days? NoAdvance Directive:Current Advance Directive: NoneIn Chart: [employer] Attempted to Assist with AD Completion: YesAction: [...] ShowerTub bench/chairHas the Patient Been in a Senior Care Facility in the Past 30 days? NoSOCIAL:Living Arrangement: HomeLives With: SpouseFinancial Resources: RetiredPrimary Contact: Extended Emergency Contact InformationPrimary Emergency Contact: Danilo McclainAddress: [address] [place] [address] [facility] Ccplvz Tnzxfrbc: SpouseSecondary Emergency Contact: Lea Montalvo Fbvtqu Hxryrymh: DaughterSupportive: YesOther Important Patient Contacts: spouse cell [phone] Assessment:Caregiver is ready, willing and able to meet the patient's needs asrecommended by the inter-professional team? YesPatient's transition needs and plan for meeting these needs: pt requiresassistance w adls, therapy recommending HHC and pt agreeable andrequesting [facility]- referral sent and working on socDoes the patient have an acute stroke diagnosis, or has the patient had astroke during this admission? NoMedication Adherence:I am convinced of the importance of my prescription medication: Agreecompletely - 0I worry that my prescription medication will do more harm than good to meDisagree completely - 0I feel financially burdened by my hkj-ak-mzotob expenses for myprescription medication: Disagree mostly -0Patient [...] IPTA,lives w spouse plan dc over weekend HHC referral started working on SOC ANDcele MD for q7uNDBJGTHJN: Luisito Bill RN PATIENT NAME: Brenda McclainDATE: February 16, 2018 : 8:58 AM PAGER/CONTACT #: [phone] [facility] NURSING PROGon 02-16-2018 Protein mass conc HNO ID: [id number] thor: Johanne Mann) Mello, RNService: NursingAuthor Type: Registered NurseType: Nursing Progress NoteFiled: 02/16/2018 5:53 PMNote Text: Nursing Progress NotePatient Name: Brenda McclainMRN: [id number] Location: [place] [address]/PZ-TN7B-69 Pt A+Ox3, pleasant. Abdomen soft AND tender, [...] note was completed by: Johanne Sarkar RN [facility] PROGRESSon 02-16-2018 Protein mass conc HNO ID: [id number] thor: Ant (Elva)(Hist) SiderisService: General SurgeryAuthor Type: ResidentType: Progress NotesFiled: 02/17/2018 10:06 AMNote Text: Attestat ion signed by Alfie Martinez at 02/17/2018 11:22 AMPatient doing well. Progressing without any postop concerns. DC planning.Splenectomy vaccines to be given likely before DC home. General Surgery Progress NoteName: Brenda RayN: [id number] update:Overall, patient is doing well. No significant [...] dry, intact. Noerythema noted.Chest: Non-labored, symmetrical respirations.Date 02/15/18699 - 02/16/18 0602/16/18699 - 02/17/18 0659Shift 4976-0881 8929-4750 8984-9932 24 Hour Total 6780-9279 9848-50378300-0470 24 Hour TotalINTAKE PO 0 650 650 [...] prior to DC if still here in 8-0cmxc-Vlseelybq incentive spirometry and ambulation, wean oxygen as tolerated-SCD's and [facility] for DVT prophylaxis-will likely discharge today or tomorrowAntroscoe Hayes MDGeneral Surgery, PGY-5Pager: [phone] Surgery Pager: [phone], weekdays 6A-6POn call pager: [phone], nights and weekends? Normal [facility] Phosphoruson 02-16-2018 Phosphate mass conc 1.7 mg/dL Low 2.5-4.5 [facility] Comment on above: Performed By: #### P HOS ####[facility] [place], [place] [phone] APTTon 02-15-2018 aPTT Coag time (Bld) 20.8 s Low 23.0-32.4 [facility] Comment on above: Result Comment: Unfr actionated [...] laboratory APTT reagent in use throughout the [facility]. Performed By: #### C BCDIF, PTT, PT, AMYL, BMP, MG1 ####[facility] [place], [place] [phone] Amylaseon 02-15-2018 Amylase enzyme act/vol 228 U/L High 0-137 [facility] Comment on above: Performed By: #### C BCDIF, PTT, PT, AMYL, BMP, MG1 ####[facility] [place], [place] [phone] Amylase,Body Fluidon 018 Amylase,Body Fluid 64 U/L Critically abnormal See Comment [facility] Comment on above: Result Comment: (NOT E)PLEURAL [...] CLSI document C49-A. JOSEFINA Giordano: Clinical LaboratoryStandards [place]; 2006.3. Donovan VIGIL, Neel MCLAUGHLIN, Renzo DJ. Use of cyst fluid CEA,CA19-9, and amylase for evaluation of pancreatic lesions. ClinicalBiochemistry. 2009;42:2794-7170.This test was developed and its performance characteristicsdetermined by [facility] and[facility] ([facility]).It has not been cleared or approved by the FDA. [facility] is regulatedunder CLIA as qualified to perform high-complexity testing.This test is used for clinical purposes. It should not be regarded asinvestigational or for research. Performed By: #### F AMYL ####[place] [phone] [place], [place] [address] Fluid Type Gopi Pedro Drain Normal [facility] Comment on above: Performed By: #### F AMYL ####[place] [address]46[address] [address]9424[address] Basic Metabolic Panlon 02-15 Anion gap 3 molar conc 11 mmol/L Normal 9-18 [facility] Comment on above: Performed By: #### C BCDIF, PTT, PT, AMYL, BMP, MG1 ####[place] [phone] Calcium mass conc 8.6 mg/dL Normal 8.5-10.5 [facility] Comment on above: Performed By: #### C BCDIF, PTT, PT, AMYL, BMP, MG1 ####[place] [phone] Chloride molar conc 105 mmol/L Normal 98-110 [facility] Comment on above: Performed By: #### C BCDIF, PTT, PT, AMYL, BMP, MG1 ####[place] [address] CO2 molar conc 24 mmol/L Normal 23-32 [facility] Comment on above: Performed By: #### C BCDIF, PTT, PT, AMYL, BMP, MG1 ####[place] [phone] Creatinine mass conc 0.72 mg/dL Normal 0.70-1.40 [facility] Comment on above: Performed By: #### C BCDIF, PTT, PT, AMYL, BMP, MG1 ####[place] [phone] eGFR- Amer. >60 Normal >60 [facility] Comment on above: Performed By: #### C BCDIF, PTT, PT, AMYL, BMP, MG1 ####[place] [address] GFR/1.73 sq M predicted among non-blacks MDRD vol rate/area (S/P/Bld) mL/min/{1.73_m2} Normal >60 [facility] Comment on above: Performed By: #### C BCDIF, PTT, PT, AMYL, BMP, MG1 ####[place] [address]38[address] Glucose mass conc 195 mg/dL High 65-100 [facility] Comment on above: Performed By: #### C BCDIF, PTT, PT, AMYL, BMP, MG1 ####[place] [phone] Potassium molar conc 4.3 mmol/L Normal 3.5-5.0 [facility] Comment on above: Performed By: #### C BCDIF, PTT, PT, AMYL, BMP, MG1 ####[place] [phone] Sodium molar conc 140 mmol/L Normal 132-148 [facility] Comment on above: Performed By: #### C BCDIF, PTT, PT, AMYL, BMP, MG1 ####[facility] [place] [phone] Urea nitrogen mass conc 14 mg/dL Normal 8-25 [facility] Comment on above: Performed By: #### C BCDIF, PTT, PT, AMYL, BMP, MG1 ####[facility] [place] [phone] CBC and Differentialon 02-15 Abs Baso <0.03 Normal <0.11 [facility] Comment on above: Performed By: #### A BINTB ####[place] [address] [phone] Abs [place] 0.74 k/uL Normal <0.87 [facility] Comment on above: Performed By: #### A BINTB ####[place] [address] [phone] Abs Neut 11.13 k/uL High 1.45-7.50 [facility] Comment on above: Performed By: #### A BINTB ####[place] [address] [address] [place] [phone] Basophils/100 WBC Auto (Bld) 0.1 % [facility] Comment on above: Performed By: #### A BINTB ####[place] [address] [address] [place] [phone] DTYPE Auto Diff Normal [facility] Comment on above: Performed By: #### A BINTB ####[place] [address] [address] [place] [phone] Eosinophils Auto #/vol (Bld) 10*3/uL Normal <0.46 [facility] Comment on above: Performed By: #### A BINTB ####[place] [address] [address] [place] [phone] Eosinophils/100 WBC Auto (Bld) 0.0 % [facility] Comment on above: Performed By: #### A BINTB ####[place] [phone] Erythrocyte distribution width Auto Ratio (RBC) 16.6 % High 11.5-15.0 [facility] Comment on above: Performed By: #### A BINTB ####[place] [phone] Hematocrit Auto Volume Fraction (Bld) 35.4 % Low 36.0-46.0 [facility] Comment on above: Performed By: #### A BINTB ####[place] [phone] Hemoglobin mass conc (Bld) 11.6 g/dL Normal 11.5-15.5 [facility] Comment on above: Performed By: #### A BINTB ####[place] [phone] Lymphocytes Auto #/vol (Bld) 0.65 10*3/uL Low 1.00-4.00 [facility] Comment on above: Performed By: #### A BINTB ####[place] [phone] Lymphocytes/100 WBC Auto (Bld) 5.2 % Normal [facility] Comment on above: Performed By: #### A BINTB ####[place] [phone] MCH Auto Entitic mass (RBC) 28.9 pG Normal 26.0-34.0 [facility] Comment on above: Performed By: #### A BINTB ####[place] [phone] MCHC Auto mass conc (RBC) 32.8 g/dL Normal 30.5-36.0 [facility] Comment on above: Performed By: #### A BINTB ####[place] [phone] MCV Auto Entitic volume (RBC) 88.3 fL Normal 80.0-100.0 [facility] Comment on above: Performed By: #### A BINTB ####[address] [phone] Monocytes/100 WBC Auto (Bld) 5.9 % Normal [facility] Comment on above: Performed By: #### A BINTB ####[place] [phone] Neutrophils/100 WBC Auto (Bld) 88.8 % Normal [facility] Comment on above: Performed By: #### A BINTB ####[address] [phone] Platelet mean volume Auto Entitic volume (Bld) 9.3 fL Normal 9.0-12.7 [facility] Comment on above: Performed By: #### A BINTB ####[place] [phone] Platelets Auto #/vol (Bld) 261 10*3/uL Normal 150-400 [facility] Comment on above: Performed By: #### A BINTB ####[address] [phone] RBC Auto #/vol (Bld) 4.01 10*6/uL Normal 3.90-5.20 [facility] Comment on above: Performed By: #### A BINTB ####[address] [phone] WBC Auto #/vol (Bld) 12.53 10*3/uL High 3.70-11.00 [facility] Comment on above: Performed By: #### A BINTB ####[address] [phone] Magnesiumon 02-15-2018 Magnesium mass conc 2.1 mg/dL Normal 1.7-2.6 [facility] Comment on above: Result Comment: Revi ewed Performed By: #### C BCDIF, PTT, PT, AMYL, BMP, MG1 ####[facility] [place], [place] [phone] NURSING PROGon 02-15-2018 Protein mass conc HNO ID: [id number] thor: Dionisio (Rn) TRUDY Leungervice: (none)Author Type: Registered NurseType: Nursing Progress NoteFiled: 02/15/2018 6:27 PMNote Text: Nursing Progress NotePatient Name: Brenda McclainMRN: [id number] Location: [place] [address]/BP-NE6V-52 Daily Note:02/15/18 1030- [facility] 1030. Patient is alert [...] note was completed by: Dionisio Leung RN [facility] Protein mass conc HNO ID: [id number] thor: Amber (Rn) TRUDY Martinezervice: (none)Author Type: Registered NurseType: Nursing Progress NoteFiled: 02/15/2018 10:31 AMNote Text: Nursing Progress NotePatient Name: Brenda McclainMRN: [id number] Location: [place] [address]/CP-SWT-07 Daily Note:0700. Report received from photocopying machine operator RN. Patient resting comfortably inbed at this time. Vital signs stable.0800. Assessment complete; see documentation.0915. Arterial line removed and pressure applied until hemostasis wasachieved.0920. Attempted to call report. Nurse unavailable.0950. Report called to RN on PK3A who will be resuming care of patient.1010. Beck catheter removed.1015. Patient transported to [facility] via wheelchair on portable O2. Allbelongings and chart sent with patient.This note was completed by: Amber Martinez RN [facility] Protein mass conc HNO ID: [id number] thor: Ari Thacker Rn: (none)Author Type: Registered NurseType: Nursing Progress NoteFiled: 02/15/2018 8:02 AMNote Text: Nursing Progress NotePatient Name: Brenda McclainMRN: [id number] Location: [place] [address]/DG-KVP-75 Daily Note:2315: Received report from Aaron DIETZ.0000: Assessment complete, see flow sheet. VSS.0344: Reassessment complete, see flow sheet. PRN labetolol given per MARfor SBP . 160. All other VSS.0725: Report given to Saurabh Clark note was completed by: Negro Beaulieu RN [facility] Protein mass conc HNO ID: [id number] thor: Ari Davison Rn: (none)Author Type: Registered NurseType: Nursing Progress NoteFiled: 02/14/2018 11:21 PMNote Text: Nursing Progress NotePatient Name: Brenda McclainMRN: [id number] Location: [place] [address]/GA-OXX-81 Daily Note:2029: Patient [facility] bed 8 with OR team, patient bathed andplaced on 3L NC. Pt drowsy at this time. Please see flowsheets forassessments.2044: Dr. Lawler and Dr. Rivera in to see patient upon arrival, ordersreceived.2049: Labs sent.2114: Family brought back and updated on patient.2199: Patient remains drowsy d/t anesthesia, nods appropriately.2299: Report given to Luis DIETZ.This note was completed by: Aaron Mcdermott RN [facility] PROGRESSon 02-15-2018 Protein mass conc HNO ID: [id number] thor: Surendra (Elva) Mooseervice: General SurgeryAuthor Type: ResidentType: Progress NotesFiled: 02/15/2018 8:42 AMNote Text:General Surgery Progress NoteName: Brenda McclainMRN: [id number] update:Overall, patient is doing well. No significant [...] 02/15/18 0659 02/15/18 0700 - 02/16/18 0659Shift 7279-4029 9957-2070 2963-1354 24 Hour Total 7890-6313 4119-61001183-2513 24 Hour TotalINTAKE IV 3500 927 4427 NS 0.9% 3500 917 4417 Calcium IVPB 10 10 Blood Products 350 350 PRBC Intake (mL) 350 350 Irrigants 20 60 80 Irrigant/Flush Amount In (GI Feed/Drain 02/14/18 2030 AssessmentNasogastric Left Naris 16 Fr) 20 60 80 Shift Total 3870 987 4857OUTPUT Urine 320 595 915 Output ( Indwelling Urinary Catheter 02/14/18 1448 Beck 16 Fr)320 595 915 Tubes 25 15 40 Drain/Tube Output (Drain/Tube 02/14/18 1914 Hector Left Abdomen Drain#1) 25 15 40 [...] advance to Clear liquids-NG to LIWS-follow drain amylase-dc beck today-pain control PRN (added liquid maru, tylenol 1000m q6h)-post splenectomy vaccines arranged for 02/28/2018 (HiB, pneumococcal,meningococcal, influenza)-Encourage incentive spirometry and ambulation-SCD's and SQ for DVT prophylaxis-[facility] todayDiscussed with Dr. Garsia?M ninfa Kumar, MDPGY-1 Resident, General SurgeryPager: [phone]; Dated: February 15, 2018, 8:38 AM? Normal [facility] Phosphoruson 02-15-2018 Phosphate mass conc 2.9 mg/dL Normal 2.5-4.5 [facility] Comment on above: Performed By: #### P HOS ####[facility] [place], [place] [phone] Protimeon 02-15-2018 INR Coag RelTime (Bld) 1.0 {INR} Normal 0.9-1.3 [facility] Comment on above: Result Comment: Danni min K Antagonist (VKA) Therapeutic Range: INR 2 to 3 (Target INR of 2.5)Note: For patients treated with VKA drugs, such as warfarin, the [place] [employer] 2012 Guideline recommends [...] of 3).Nancy GH, et al. Chest 2012, 141:7S-47SNishimura RA, et al. [facility] 2017, 70: 252-289 Performed By: #### C BCDIF, PTT, PT, AMYL, BMP, MG1 ####[facility] [place], [place] [phone] PT Sec 10.5 sec Normal 9.7-13.0 [facility] Comment on above: Performed By: #### C BCDIF, PTT, PT, AMYL, BMP, MG1 ####[facility] [place], [place] [phone] THERAPY NTon 02-15-2018 THERAPY NT HNO ID: [id number] thor: Milagro (Ot) YocabetService: Occupational TherapyAuthor Type: Occupational TherapistType: Therapy (PT/OT/Speech/Resp)Filed: 02/15/2018 10:26 AMNote Text:Occupational Therapy EvaluationSERVICE DATE: 02/15/2018SERVICE TIME: 0850 to 0913ROOM: [place]-IKP-00Yuzocpxkxfv Discharge Disposition: Home OTAnticipated Discharge Needs: Physical Assist at HomePhysical Assist at Home for:Cleaning;Laundry;Meals;Stai rs;Transportation;ShoppingRecom mended Discharge Equipment: To Be DeterminedOT Recommendations to Nursing: OOB for meals;To Bathroom for ADL?s /and orToiletingOT 6 Clicks Score: 15Precautions/Activity Restrictions: Fall Risk;Lines/Tubes/DrainsASSESSME NT:68 yo patient admitted to the hospital for [...] mobility-other;Decreased activities of dailyliving (ADL)Interventions Provided: Evaluation;Self Alf Management (30992)$ Evaluation-Low (18421) Billed Units: 1 unitSelf Alf Management (25242) Treatment Minutes: 81 unitSkilled Intervention(s): Provided cuing [...] 23FUNCTIONAL G CODE:OT 6 Clicks Score: 15 (02/15/18849)Self Care Current Status (G8987): CK (02/15/18849)Self Care Goal Status (G8988): CJ (02/15/18849)Based on clinical assessment and the score on [...] Milagro Craig OT/Angela PATIENT NAME: Brenda Miller PerrysburgayDATE: February 15, 2018 : 10:23 AM [facility] THERAPY NT HNO ID: [id number] thor: Shannon (Pt) ThoburnService: Physical TherapyAuthor Type: Physical TherapistType: Therapy (PT/OT/Speech/Resp)Filed: 02/15/2018 9:24 AMNote Text:Physical Therapy EvaluationSERVICE DATE: 02/15/2018SERVICE TIME: 0840 to 0903ROOM: [id number] Discharge Disposition: Home PTPT Recommendations to Nursing: Ambulate without device;In halls;Withassist of 1 personPT 6 Clicks Score: 13Precautions/Activity Restrictions: Fall Risk;Lines/Tubes/DrainsASSESSME NT :Patient's impairments as related to Physical Therapy [...] INTERVENTIONS:Therapy Diagnosis: Reduced mobility-otherInterventions Provided: Evaluation;Gait Training (86453)$ Evaluation-High (59654) Billed Units: 1 unitGait Training (37554) Treatment Minutes: 81 unitSkilled Intervention(s): Instruction in [...] G CODE:PT 6 Clicks Score: 13 (02/15/18 4967)Mobility: Walking and Moving Around Current Status (G8978): CL (693473)Mobility: Walking and Moving Around Goal Status (G8979): CJ (563476)Based on clinical assessment and the score on [...] Standing Balance: Moderate AssistanceDynamic Standing Balance: Moderate AssistanceJ-HLM: 6: Walk 10 steps or morePlease see discipline specific clinical documentation flowsheet forcomplete details for this therapy evaluation/treatment.SIGNATURE: Shannon Rodríguez PT PATIENT NAME: Brenda McclainDATE: February 15, 2018 : 9:23 AM [facility] ALLIED HEALTHon 02-14-2018 ALLIED HEALTH HNO ID: [id number] thor: Lesley Ervin (Rt)Service: RadiologyAuthor Type: TechnicianType: Allied HealthFiled: 02/14/2018 7:12 PMNote Text: Radiology Service Progress NotePATIENT NAME: Brenda McclainMRN: [id number] OF SERVICE: February 14, 2018TIME: 7:11 PMPATIENT IDENTITY VERIFICATION COMPLETED USING TWO (2) METHODS: Patientconfirmed name verbally and ID band matches..PATIENT GENDER DATA: Female. status: : NoBreastfeeding status: NO.PATIENT RELEVANT IMPLANT DATA REVIEWED: Not ApplicableRADIOLOGY DEPARTMENT: General X-ray: Exam(s) Completed: Abdomen X-RayAbdomenPERIPHERAL IV DATA: Not applicableSIGNED BY: Mike Ervin 2017 7:11 PM [facility] ANES Christianne 02-14-2018 ANES POST HNO ID: [id number] thor: Ryan Cruzervice: AnesthesiologyAuthor Type: AnesthesiologistType: Anesthesia PostOpFiled: 02/14/2018 8:37 [...] 14, 2018 : 8:36 PM PAGER/CONTACT #: [phone] [facility] ANES PREOPon 02-14-2018 ANES PREOP HNO ID: [id number] thor: John Reddingrvice: AnesthesiologyAuthor Type: AnesthesiologistType: Anesthesia PreOpFiled: 02/15/2018 7:09 AMNote Text:REGIONAL ANESTHESIOLOGY DAY OF SURGERY NOTEPATIENT NAME: Brenda McclainMRN: [id number]: 1950Procedure(s) (LRB):LAPAROSCOPIC RPR PARAESOHAGEAL HERNIA W/ FUNDOPLASTY [...] bedrawn surgeon aware.EKG:normal EKG, normal sinus rhythmVitals: 236BP: 125/80Pulse: 77Resp: 18Temp: 36.9 ?C (98.4 ?F)TempSrc: [...] or OralEPIC Chart ReviewACTIVE PROBLEM LISTParaesophageal HerniaAnemiaHtn (Hypertension)Hypercholesteremi aIbs (Irritable Bowel Syndrome)Monoclonal Gammopathy of Undetermined SignificancePAST [...] EVERY 4 HOURS ASNEEDEDInpatient medications reviewed in [facility].I have interviewed and examined the patient. I have reviewed the medicalrecord and/or the pre-anesthesia evaluation, pertinent labs, and testresults.Significant changes in the patient's condition since the History andPhysical, not otherwise documented in primary service progress notes: NoThis contains updated information obtained within 48 hours ofSurgery/Procedure.2 antibodies known on type and screen. Discussed with surgeon.SIGNATURE: Monica Cummings APRN.CRNA PATIENT NAME: Brenda McclainDATE: February 14, 2018 : 3:19 PM PAGER/CONTACT #: Normal [facility] APTTon 02-14-2018 aPTT Coag time (Bld) 21.8 s Low 23.0-32.4 [facility] Comment on above: Result Comment: Unfr actionated [...] laboratory APTT reagent in use throughout the [facility]. Performed By: #### A BINTB ####[facility] [address] [place], [place] [phone] BRIEF OP NOTon 02-14-2018 BRIEF OP NOT HNO ID: [id number] thor: Nataly Leeervice: General SurgeryAuthor Type: ResidentType: Brief Op NoteFiled: 02/14/2018 8:48 PMNote Text:BRIEF OP NOTELOG ID: [id number]/Procedure Date: 02/14/2018Incision/Procedure Start Time: 3:11 PMIncision Close/Procedure End Time: 7:58 PMSurgeon(s)/Proceduralist(s) and Channel Rougher(s):Surgeon(s) and Role: * Monica Garsia - Primary * Nataly Peña - Resident - AssistingProcedure(s): Laparoscopic converted to open paraesophageal hernia repair,Kimmy fundoplication, splenectomyAnesthesia: GeneralFindings: Large hiatal hernia, injury to a blood vessel adjacent to thespleen requiring conversion to an open operation and splenectomyEstimated Blood Loss: 700 mlsSpecimens: SpleenPre-Op/Pre-Procedure Diagnosis: Paraesophageal herniaPost-Op/Post-Procedure Diagnosis: Paraesophageal hernia [K44.9SIGNATURE: Nataly Peña MD PATIENT NAME: Brenda Cooper: February 14, 2018 : 8:26 PM PAGER/CONTACT #: Normal [facility] Basic Metabolic Panlon 02-14 Anion gap 3 molar conc 12 mmol/L Normal -18 [facility] Comment on above: Performed By: #### A BINTB ####[place] [address] [address] [place] [phone] Calcium mass conc 8.3 mg/dL Low 8.5-10.5 [facility] Comment on above: Performed By: #### A BINTB ####[place] [address] [address] [place] [phone] Chloride molar conc 105 mmol/L Normal 98-110 [facility] Comment on above: Performed By: #### A BINTB ####[place] [address] [address] [place] [phone] CO2 molar conc 24 mmol/L Normal 23-32 [facility] Comment on above: Performed By: #### A BINTB ####[place] [address] [address] [place] [phone] Creatinine mass conc 0.73 mg/dL Normal 0.70-1.40 [facility] Comment on above: Performed By: #### A BINTB ####[place] [address] [address] [place] [phone] eGFR- Amer. >60 Normal >60 [facility] Comment on above: Performed By: #### A BINTB ####[place] [address] [address] [place] [phone] GFR/1.73 sq M predicted among non-blacks MDRD vol rate/area (S/P/Bld) mL/min/{1.73_m2} Normal >60 [facility] Comment on above: Performed By: #### A BINTB ####[place] [id number] [place] [phone] Glucose mass conc 176 mg/dL High 65-100 [facility] Comment on above: Performed By: #### A BINTB ####[place] [address] [address] [place] [phone] Potassium molar conc 4.0 mmol/L Normal 3.5-5.0 [facility] Comment on above: Performed By: #### A BINTB ####[place] [address] [address] [place] [phone] Sodium molar conc 141 mmol/L Normal 132-148 [facility] Comment on above: Performed By: #### A BINTB ####[place] [address] [address] [place] [phone] Urea nitrogen mass conc 12 mg/dL Normal 8-25 [facility] Comment on above: Performed By: #### A BINTB ####[place] [address] [address] [place] [phone] CBC and Differentialon 02-14 Abs Baso <0.03 Normal <0.11 [facility] Comment on above: Performed By: #### A BINTB ####[place] [address] [address] [place] [phone] Abs [place] 0.58 k/uL Normal <0.87 [facility] Comment on above: Performed By: #### A BINTB ####[place] [address] [address] [place] [phone] Abs Neut 9.32 k/uL High 1.45-7.50 [facility] Comment on above: Performed By: #### A BINTB ####[place] [address] [address] [place], [place] [phone] Basophils/100 WBC Auto (Bld) 0.0 % Normal [facility] Comment on above: Performed By: #### A BINTB ####[place] [address] [address] [place] [phone] DTYPE Auto Diff Normal [facility] Comment on above: Performed By: #### A BINTB ####[place] [address] [address] [phone] Eosinophils Auto #/vol (Bld) 10*3/uL Normal <0.46 [facility] Comment on above: Performed By: #### A BINTB ####[place] [address] [address] [phone] Eosinophils/100 WBC Auto (Bld) 0.0 % Normal [facility] Comment on above: Performed By: #### A BINTB ####[place] [phone] Erythrocyte distribution width Auto Ratio (RBC) 16.8 % High 11.5-15.0 [facility] Comment on above: Performed By: #### A BINTB ####[place] [address] [address] [phone] Hematocrit Auto Volume Fraction (Bld) 34.4 % Low 36.0-46.0 [facility] Comment on above: Performed By: #### A BINTB ####[place] [address] [address] [place] [phone] Hemoglobin mass conc (Bld) 11.2 g/dL Low 11.5-15.5 [facility] Comment on above: Performed By: #### A BINTB ####[place] [address] [address] [phone] Lymphocytes Auto #/vol (Bld) 0.79 10*3/uL Low 1.00-4.00 [facility] Comment on above: Performed By: #### A BINTB ####[place] [address] [address] [phone] Lymphocytes/100 WBC Auto (Bld) 7.4 % Normal [facility] Comment on above: Performed By: #### A BINTB ####[place] [address] [address] [place] [phone] MCH Auto Entitic mass (RBC) 29.0 pG Normal 26.0-34.0 [facility] Comment on above: Performed By: #### A BINTB ####[place] [address] [address] [place] [phone] MCHC Auto mass conc (RBC) 32.6 g/dL Normal 30.5-36.0 [facility] Comment on above: Performed By: #### A BINTB ####[place] [phone] MCV Auto Entitic volume (RBC) 89.1 fL Normal 80.0-100.0 [facility] Comment on above: Performed By: #### A BINTB ####[place] [phone] Monocytes/100 WBC Auto (Bld) 5.4 % Normal [facility] Comment on above: Performed By: #### A BINTB ####[place] [phone] Neutrophils/100 WBC Auto (Bld) 87.2 % Normal [facility] Comment on above: Performed By: #### A BINTB ####[place] [phone] Platelet mean volume Auto Entitic volume (Bld) 9.3 fL Normal 9.0-12.7 [facility] Comment on above: Performed By: #### A BINTB ####[place] [address] [address] [place] [phone] Platelets Auto #/vol (Bld) 263 10*3/uL Normal 150-400 [facility] Comment on above: Performed By: #### A BINTB ####[place] [address] [address] [place] [phone] RBC Auto #/vol (Bld) 3.86 10*6/uL Low 3.90-5.20 [facility] Comment on above: Performed By: #### A BINTB ####[facility] [place], [place] [phone] WBC Auto #/vol (Bld) 10.69 10*3/uL Normal 3.70-11.00 [facility] Comment on above: Performed By: #### A BINTB ####[facility] [place], [place] [phone] Confirm Blood Typeon 018 ABO/RH(D) Positive Normal [facility] Comment on above: Performed By: #### C ONABO ####[facility] [place], [place] [phone] HISTORY PHYSICALon HISTORY PHYSICAL HNO ID: [id number] thor: Arsenio (Res) HaddadService: General SurgeryAuthor Type: [...] 77 BP: 125/80 Resp: 18 SpO2: 96 %Havana Miriam Readings: Not applicableRESPIRATORYMechanical Ventilation: No. Supplemental [...] , ProtonixHeme: FU CBC , transfuse if neededFluid/Electrolyte/Nutriti on: mIVF , replete electrolytes as neededID: NAMedication and Non-Pharmacologic VTE Prophylaxis/AnticoagulantsAntic oagulant AND Antiplatelet Medications Start Dose Route Frequency Ordered Stop 02/14/18 1450 heparin injection -- -- X (OR/PROCEDURE) PRN 02/14/18 1515 --VTE Prophylaxis: VTE prophylaxis appropriateSIGNATURE: Arsenio Lawler MD PATIENT NAME: Brenda McclainDATE: February 14, 2018 : 8:52 PM PAGER/CONTACT #: [phone] [facility] Magnesiumon 02-14-2018 Magnesium mass conc 1.4 mg/dL Low 1.7-2.6 [facility] Comment on above: Performed By: #### A BINTB ####[facility] [place], [place] [phone] NURSING PROGon 02-14-2018 Protein mass conc HNO ID: [id number] Author: Juanita AlmarazRn) J LUIS Broussard Service: Nursing Author Type: Registered Nurse Type: Nursing Progress Note Filed: 02/14/2018 6:12 PM Note Text: converted to open procedure at 1720 [facility] OPERATIVE NOon 02-14-2018 OPERATIVE NO HNO ID: [id number] thor: Monica Estrada) AugustinService: General SurgeryAuthor Type: PhysicianType: Operative ReportFiled: 02/19/2018 3:10 PMNote Text:[facility] - Operative ReportBRENDA MCCLAIN LDOB: 8AGE: 68.SEX: FMRN: [id number] TYPE: IHOSP SVC: GENSLOCATION: [id number] PHYSICIAN: MADI Gamez NUMBER: [id number] OF SURGERY/PROCEDURE: 02/14/2018INCISION/PROCEDURE START TIME: 1511 hours.INCISION CLOSE/PROCEDURE END TIME: 1958 hours.PREOPERATIVE DIAGNOSIS: Paraesophageal hernia.POSTOPERATIVE DIAGNOSIS: Paraesophageal hernia.SURGEON: [...] entire sac was dissected out from themediastinum.A Eldridge drain was passed around the esophagus. Further dissection wascontinued using the Harmonic scalpel. All the adhesions of the sac tothe mediastinum were completely lysed. 2 cm to 3 cm length ofesophagus was noted to be easily inside the abdomen. Next, weproceeded with laparoscopic closure of the posterior ellen. Multipleinterrupted rvjlvo-qw-nlzhc stitches using silk was used to close [...] anycomplications was noted. Next, we passed the 58-Singaporean bougie intothe stomach. A 360 degree wrap [...] to be without any evidence of any burning.KORI Gamez:[id number] #: [id number]: 02/14/2018 20:43:04 [facility] PT EDon 02-14-2018 PT ED HNO ID: [id number] thor: Haven (Rn) Cristel, RNService: (none)Author Type: Registered NurseType: Patient EducationFiled: 02/14/2018 12:36 PMNote Text:PATIENT EDUCATION TOPIC: PROCEDURE / SURGERY: Pre-op Teaching:ProtocolsPATIENT NAME: Brenda McclainN: [id number] LOCATION: FV OR POOL/FV OR POOLREADINESS TO LEARNCOGNITIVE ABILITY: Alert and orientedMOTIVATION TO LEARN: EagerFAMILY SUPPORT: None - Unavailable/disinterestedINSTRU CTION PROVIDED TO: PatientPATIENT LEARNS BEST BY: Individual InstructionFACTORS AFFECTING LEARNING: NonePHYSICAL LIMITATIONS AFFECTING LEARNING: NoneLEARNING RESPONSEDIAGNOSIS: ADULT: Well AdultPATIENT/FAMILY RESPONSE: Verbalizes understanding of: NZJ-LTPJDNKEJMZYQADGIAFHQ-Fopot ct action to take to follow pre-operative instructionsMETHOD OF INSTRUCTION: Individual instructionFOLLOW-UP PLAN: Complete - No need for follow-upPatient instructed to call with any further issuesINSTRUCTIONAL AIDS USED: NASUPPLEMENTAL MATERIAL PROVIDED TO PATIENT: NoneREFERRAL (RECOMMENDATION): NoneElectronically Signed By: Haven Fam RN [facility] Phosphoruson 02-14-2018 Phosphate mass conc 3.2 mg/dL Normal 2.5-4.5 [facility] Comment on above: Performed By: #### A BINTB ####[facility] [place], [place] [phone] Protimeon 02-14-2018 INR Coag RelTime (Bld) 1.1 {INR} Normal 0.9-1.3 [facility] Comment on above: Result Comment: Danni min K Antagonist (VKA) Therapeutic Range: INR 2 to 3 (Target INR of 2.5)Note: For patients treated with VKA drugs, such as warfarin, the [place] [employer] 2012 Guideline recommends [...] al. Chest 2012, 141:7S-47SNishimiam RA, et al. JAC 2017, 70: 252-289 Performed By: #### A BINTB ####[facility] [address] [place], [place] [phone] PT Sec 11.3 sec Normal 9.7-13.0 [facility] Comment on above: Performed By: #### A BINTB ####[facility] [place], [place] [phone] SURGICAL PATHOLOGYon 018 SURGICAL PATHOLOGY [facility]: [id number] Physician: MONICA GARSIA MD FINAL DIAGNOSISSpleen, resection:- Benign-appearing spleen with focal granuloma [...] chromogenicin-situ hybridization tests have been determined by [facility] [place] ([facility]) patti manner consistent with CLIA requirements. One or more of these tests havenot been cleared or approved by the FDA. [facility] is regulated under CLIA asqualified to perform high-complexity testing. These tests are used forclinical purposes. They should not be regarded as investigational or forresearch. EDH/srporfirio 02/16/2018 Trevin Moraes M.D.(Electronic Signature) SPECIMEN SUBMITTEDA: SPLEEN CLINICAL DATAPARAESOPHAGEAL HERNIA GROSS DESCRIPTIONA. Received fresh designated spleen is a spleen that measures 9.2 x 6.0 x3.1 cm and weighs 124 grams. The splenic capsule is blue-gr. A capsulartear with associated subcapsular and parenchymal hemorrhage is presentmeasuring 7.0 x 2.5 cm. The cut surface of the spleen is dark red andslightly granular. Optical Glass Silverer sections are submitted in two cassettes. WE/dcr 02/15/2018 Gross examination performed at [facility], [address] [place], [place] [address]Patient ID #: [id number] [id number] Report: 02/19/2018Date of Procedure: 02/14/2018Date of Receipt: 02/15/2018Submitted by: MONICA GARSIA MDLocation: [id number] interpretation performed at [facility], [address] [place] [address]. Normal [facility] Comment on above: Performed By: #### C ONABO ####[address] [phone] XR ABDOMEN 1V SUPINEon 02-14 XR ABDOMEN [...] HERNANDEZ MD on Feb 14 2018 7:16PM [id number] AL!! Invalid Interpretation Code [facility] NURSING PROGon 02-08-2018 Protein mass conc HNO ID: [id number] thor: Chichi (Rn) TRUDY Hoodervice: General SurgeryAuthor Type: Registered NurseType: Nursing Progress NoteFiled: 02/08/2018 11:06 AMNote Text:PACC Nurse Progress NoteHistory AND Physical:PACC Visit Date: 02-2-24Tiqaaxye HANDP Date: N/AED visit Date: N/AOutside HANDP Scanned Date: N/ALabs Within Last 6 Months:CBC: Date 01-25-18BMP/CMP: Date 01-25-18TYPE AND SCREEN: Date 43-1-83Dpwrxk acceptable limits, results in EPICImaging Within Last 12 Months:Chest X-ray 2-32-70Iwfiwii scanned in EPIC 46-53-80Jcicdid Testing:EKG in last 12 Months: Yes: Date: 01-25-18, Comment: Confirmed in EPICLast Menstrual Period:LMP Date: Not recordedPostmenopausal >1yr: Yes,S/P Hysterectomy: YesBMI Percentile (PEDS):N/ARisk Assessment:N/AAnesthesia Review:N/ANarrative:N/APre-op Considerations:Per HANDP:Paraesophageal herniaGastroesophageal reflux disease, esophagitis presence not specifiedAnemia, unspecified type: MISAEL, receives iron infusions.Essential hypertensionHypercholesteremiar ritable bowel syndrome, unspecified typeMonoclonal gammopathy of undetermined significanceL stable per heme notein CERemote history DVT: 40 + years ago after childbirthChart Check:Beulah Crowe 2017 11:04 AM [facility] RBC Antibody Interp (Lab Ord ered)on 01-25-2018 Antibody Interp (NOTE) [facility] Comment on above: Result Comment: Anti -E and anti-K, clinically significant alloantibodies againstcorresponding Rh and [place] blood group system antigens, respectivelyare identified.Approximately 63% of donor units will be negative for the E and Kantigens. When possible please allow a minimum of 4 hours forpretransfusion and compatibility testing. Performed By: #### A BINTB ####[address] [phone] Physician Review Signed by Cynthia og MD ([id number]) [facility] Comment on above: Performed By: #### A BINTB ####[address] [phone] Type and SCR (30D)on 018 ABO/RH(D) Positive [facility] Comment on above: Performed By: #### T SCR30 ####[address] [phone] Antibody Identified [facility] Comment on above: Result Comment: ANTI -K PRESENT.ANTI-E PRESENT. Performed By: #### T SCR30 ####[address] [phone] HOSPon 01-18-2018 HOSP Patient:Brenda Mcclain LMRN: Height:5' [...] 12:25 PM SignedCall to patient to at [phone] to reschedule surgery date.Received VM. Contact number provided for return call.New date of surgery 02/14/2018Procedure: Laparoscopic PEH repairTello Mckeon RN 02/02/2018 2:05 PM SignedReceived return call from patient.Accepted new date of surgery.Will edit [facility] paperwork to reflect new date of surgery.Progress Notes ([place] [address] ):Monica Garsia MD 01/21/2018 4:17 PM SignedAssessmentNEW FOREGUT PATIENTPATIENT NAME: Brenda McclainMRN: [id number] FOR CONSULT: Paraesophageal herniaREQUESTING PHYSICIAN: NAZIA TesfayeATE of SERVICE: 01/16/2018TIME of SERVICE: 6:08 PMPCP: NAVNEET Venturaorsaira Complaint: Abdominal pain, refluxHistory of present illness:Brenda Mcclain is a 68 year old female, patient of Pam Villalobos MD,referred to me by Dr. Owen for a paraesophageal hernia.. EGD 11/17/2017 by noted hiatal hernia 10cm and Schatzki ring esophogram 11/20/2017 (FayeEdmundo)Difficulty swallowing / foods sticking in throat:NoHeartburn: YesChronic [...] referring provider via electronic medical record and USmail.Monica Garsia, MDPrevious Version Normal [facility] Vital Signs Date Time Vital Sign Value Performing Clinician Facility 08-18-2022 14:260400 Body height 161.3 cm Sanjay Adkins MD Work Phone: [facility] 08-18-2022 14:26-0400 Body temperature 97.11 [degF] Sanjay Adkins MD Work Phone: [facility] 08-18-2022 14:26-0400 Body weight 82.46 kg Sanjay Adkins MD Work Phone: [facility] 08-18-2022 14:26-0400 Diastolic blood pressure 77 mm[Hg] Sanjay Adkins MD Work Phone: [facility] 08-18-2022 14:26-0400 Heart rate 78 /min Sanjay Adkins MD Work Phone: [facility] 08-18-2022 14:26-0400 Respiratory rate 16 /min Sanjay Adkins MD Work Phone: [facility] 08-18-2022 14:26-0400 SaO2% (BldA) [Mass fraction] 100 % Sanjay Adkins MD Work Phone: [facility] 08-18-2022 14:26-0400 Systolic blood pressure 117 mm[Hg] Sanjay Adkins MD Work Phone: [facility] 08-19-2021 14:12-0400 Body height 161.3 cm Sanjay Adkins MD Work Phone: [facility] 08-19-2021 14:12-0400 Body temperature 98.6 [degF] Sanjay Adkins MD Work Phone: [facility] 08-19-2021 14:12-0400 Body weight 79.83 kg Sanjay Adkins MD Work Phone: [facility] 08-19-2021 14:12-0400 Diastolic blood pressure 83 mm[Hg] Sanjay Adkins MD Work Phone: [facility] 08-19-2021 14:12-0400 Heart rate 91 /min Sanjay Adkins MD Work Phone: [facility] 08-19-2021 14:12-0400 Respiratory rate 16 /min Sanjay Adkins MD Work Phone: [facility] 08-19-2021 14:12-0400 SaO2% (BldA) [Mass fraction] 96 % Sanjay Adkins MD Work Phone: [facility] 08-19-2021 14:12-0400 Systolic blood pressure 133 mm[Hg] Sanjay Adkins MD Work Phone: [facility] 07-29-2021 08:45-0400 Blood Pressure Location [facility] 07-29-2021 08:45-0400 Diastolic blood pressure 98 mm[Hg] [facility] 07-29-2021 08:45-0400 Heart rate 66 /min [facility] 07-29-2021 08:45-0400 Respiratory rate 23 /min [facility] 07-29-2021 08:45-0400 SaO2% (BldA) [Mass fraction] 96 % [facility] 07-29-2021 08:45-0400 Systolic blood pressure 146 mm[Hg] [facility] 07-29-2021 08:35-0400 Blood Pressure Location [facility] 07-29-2021 08:35-0400 Diastolic blood pressure 97 mm[Hg] [facility] 07-29-2021 08:35-0400 Heart rate 71 /min [facility] 07-29-2021 08:35-0400 Respiratory rate 14 /min [facility] 07-29-2021 08:35-0400 SaO2% (BldA) [Mass fraction] 97 % [facility] 07-29-2021 08:35-0400 Systolic blood pressure 147 mm[Hg] [facility] 07-29-2021 08:30-0400 Blood Pressure Location [facility] 07-29-2021 08:30-0400 Diastolic blood pressure 105 mm[Hg] Guan SALAM [facility] 07-29-2021 08:30-0400 Heart rate 67 /min Guan SALAM [facility] 07-29-2021 08:30-0400 Respiratory rate 14 /min Guan SALAM [facility] 07-29-2021 08:30-0400 SaO2% (BldA) [Mass fraction] 96 % Guan SALAM [facility] 07-29-2021 08:30-0400 Systolic blood pressure 140 mm[Hg] Guan SALAM [facility] 07-29-2021 08:20-0400 Body temperature 98.06 [degF] Guan SALAM [facility] 07-29-2021 08:14-0400 Respiratory rate 18 /min Guan SALAM [facility] 07-29-2021 08:00-0400 Respiratory rate 1 /min Guan SALAM [facility] 07-29-2021 07:50-0400 Respiratory rate 6 /min Guan SALAM [facility] 07-29-2021 07:12-0400 Body temperature 97.7 [degF] Gaun SALAM [facility] 06-09-2021 10:29-0400 Diastolic blood pressure 91 mm[Hg] Guan SALAM [facility] 06-09-2021 10:29-0400 Heart rate 76 /min Guan SALAM [facility] 06-09-2021 10:29-0400 Systolic blood pressure 148 mm[Hg] Guan SALAM [facility] Encounters Encounter Date Encounter Type Care Provider Facility Start: 01-16-2023 End: 01-16-2023 ambulatory PAM VILLALOBOS Not Available Start: 2023 End: 2023 Emergency department patient visit [place] Facility:[facility] Start: 08-24-2022 End: 08-25-2022 ambulatory Kamron Villalobos Facility:[facility] Start: 08-24-2022 End: 08-24-2022 Patient encounter procedure Kamron Villalobos [facility] Start: 08-18-2022 End: 08-18-2022 ambulatory PAM VILLALOBOS Facility:[facility] Start: 08-18-2022 End: 08-18-2022 ambulatory Sanjay Adkins MD Work Phone: Hematology/Oncology Comment on above: 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); History of iron deficiency Start: 08-18-2022 End: 08-18-2022 Patient encounter procedure Sanjay Adkins MD Work Phone: [facility] Start: 05-18-2022 End: 05-19-2022 ambulatory SELF REFERRAL Facility:[facility] Start: 05-18-2022 End: 05-18-2022 Patient encounter procedure SELF REFERRAL [facility] Start: 12-17-2021 End: 12-17-2021 Patient encounter procedure Pam Villalobos [facility] Start: 08-26-2021 Telephone encounter Tello [...] End: 08-18-2021 Patient encounter procedure JOHANNE LINDSAY [facility] Start: 07-29-2021 End: 07-29-2021 Patient encounter procedure Roge OWEN [facility] Start: 06-09-2021 End: 06-09-2021 Patient encounter procedure Roge OWEN [facility] Start: 02-15-2021 End: 05-18-2021 Patient encounter procedure Pam Dannie Villalobos [facility] Start: 02-14-2018 End: 02-17-2018 Evaluation and management of inpatient MONICA () [facility] Procedures Date Procedure Procedure Detail Performing Clinician Start: 07-29-2021 Esophagogastroduodenoscopy Roge OWEN Start: 10-29-2019 Total knee replacement Pam Villalobos Comment on above: ROBOT ASSISTED Start: 09-30-2019 Cataract extraction and insertion of intraocular lens Pam Villalobos Comment on above: CATARACT EXTRACTION W/ INTRAOCULAR LENS IMPLANTATION Start: 09-02-2019 Cataract extraction and insertion of intraocular lens Pam Villalobos Comment on above: right Start: 08-16-2019 Adult depression screening assessment Sanjay Adkins MD Work Phone: Start: 01-25-2018 Antibody screen MONICA GARSIA Comment on above: Performed By: #### [id number] ####[id number] [place], [place] [phone] Colonoscopy Pam Villalobos Elbow region structu re (body structure) Pam Villalobos Esophageal hiatus hernia repair Pam Villalobos Esophagogastroduodenoscopy P eter Wilfredo Hemorrhoids (disorder) Pam Villalobos Hysterectomy Pam Villalobos knee scope Pam Villalobos Operation on spleen Pam west Plan of Treatment Date Care Activity Detail Author Start: 08-18-2025 DIABETES SCREEN DIABETES SCREEN [facility] Start: 08-19-2024 DIABETES SCREEN DIABETES SCREEN [facility] Start: 08-19-2023 BP CONTROLLED (<130/80) BP CONTROLLE D (<130/80) [facility] Start: 04-16-2023 MENINGOCOCCAL CONJUG ATE (3 - Risk 2-dose series) MENINGOCOCCAL CONJUGATE (3 - Risk 2-dose series) [facility] Start: 08-18-2022 End: 10-18-2022 MONOCLONAL PROTEIN, SERUM (BLOOD) [facility] Work Phone: Comment on above: Expected: 08/18/2022 , Expires: 10/18/2022 Start: 08-18-2022 End: 10-18-2022 PROT ELECT SERUM WITH DARÍO AND INTERP [facility] Work Phone: Comment on above: Expected: 08/18/2022 , Expires: 10/18/2022 Start: 02-20-2022 ADVANCE DIRECTIVE DISCUSSION ADVANCE DIRECTIVE DISCUSSION [facility] Start: 02-20-2022 DEPRESSION ASSESSMENT DEPRESSION ASS ESSMENT [facility] Start: 10-21-2021 Influenza vaccination INFLUENZA (#1) [facility] Start: 08-19-2021 End: 10-19-2021 Ferritin [Mass/volume] in Serum or Plasma [facility] Work Phone: Comment on above: Expected: 08/19/2021 , Expires: 10/19/2021 Start: 08-19-2021 End: 10-19-2021 Iron and Iron binding capacity panel - Serum or Plasma [facility] Work Phone: Comment on above: Expected: 08/19/2021 , Expires: 10/19/2021 Start: 03-30-2021 COVID-19 VACCINE (4 - Booster for Pfizer series) COVID-19 VACCINE (4 - Booster for Pfizer series) [facility] Start: 02-20-2021 ADVANCE DIRECTIVE DISCUSSION ADVANCE DIRECTIVE DISCUSSION [facility] Start: 08-15-2020 Adult depression screening assessment DEPRESSION SCREENING [facility] Start: 04-16-2019 PNEUMOCOCCAL: 65+ (3 - PCV) PNEUMOCOCCAL: 65+ (3 - PCV) [facility] Start: 07-31-2013 SHINGRIX VACCINE (1 of 2) SHINGRIX VACCINE (1 of 2) [facility] Start: 01-07-2013 BONE DENSITY BONE DENSITY [facility] Start: 01-07-1993 COLOGUARD (FIT-DNA) COLOGUARD (FIT-D NA) [facility] Start: 01-07-1993 Colonoscopy COLONOSCOPY [facility] Start: 01-07-1993 COLORECTAL CANCER SCREENING COLORECTAL CANCER SCREENING [facility] Start: 01-07-[address] COLONOGRAPHY [facility] Start: 01-07-1993 FECAL OCCULT BLOOD FECAL OCCULT BLOO D [facility] Start: 01-07-1993 LIPID SCREEN LIPID SCREEN [facility] Start: 01-07-1993 SIGMOIDOSCOPY SIGMOIDOSCOPY [facility] Start: 1988 Mammography MAMMOGRAM [facility] Start: 01-07-1967 Urine microalbumin profile DTAP,TDAP,TD (1 - Tdap) [facility] Start: 01-07-1966 ANNUAL PCP TEAM WARD AIDE JAS DISEASE VISIT ANNUAL PCP TEAM CHRONIC DISEASE VISIT [facility] Start: 01-07-1966 BP CONTROLLED (<130/80) BP CONTROLLE D (<130/80) [facility] Start: 01-07-1966 HEPATITIS C SCREENING HEPATITIS C SC REENING [facility] Start: 01-07-1958 MENINGOCOCCAL B: Consider based on risk (1 of 4 - Increased Risk Bexsero 2-dose series) MENINGOCOCCAL B: Consider based on risk (1 of 4 - Increased Risk Bexsero 2-dose series) [facility] Immunizations Immunization Date Immunization Notes Care Provider Fa [facility] 04-16-2020 COVID-19 vaccine, ag e 12+ yr (PFIZER-BIONTECH - PURPLE TOP) Sanjay Adkins MD Work Phone: [facility] 03-27-2020 COVID-19 vaccine, ag e 12+ yr (PFIZER-BIONTECH - PURPLE TOP) Sanjay Adkins MD Work Phone: [facility] 04-16-2018 meningococcal polysaccharide (groups A, C, Y and W-135) diphtheria toxoid conjugate vaccine (MCV4P) Sanjay Adkins MD Work Phone: [facility] 04-16-2018 pneumococcal polysaccharide vaccine, 23 valent Sanjay Adkins MD Work Phone: [facility] 02-17-2018 haemophilus influenz ae type b vaccine, PRP-T conjugate Sanjay Adkins MD Work Phone: [facility] 02-17-2018 influenza, high dose seasonal, preservative-free Sanjay Adkins MD Work Phone: [facility] 02-17-2018 meningococcal polysaccharide (groups A, C, Y and W-135) diphtheria toxoid conjugate vaccine (MCV4P) Sanjay Adikns MD Work Phone: [facility] 02-17-2018 pneumococcal polysaccharide vaccine, 23 valent Sanjay Adkins MD Work Phone: [facility] 06-05-2013 zoster vaccine, live Sanjay gibson MD Work Phone: [facility] 02-18-2009 novel influenza-H1N1 -09, preservative-free, injectable Sanjay Adkins MD Work Phone: [facility] Payers Date Payer Category Payer Medicare [id number] 2018 Unknown VANDANA [employer] DICARE SUPPLEMENT [id number] 2018-Present [phone] [address] [place] [address] Indemnity [id number] 2018 Unknown V[employer]DANA [employer] DICARE SUPPLEMENT [id number] 2018-Present [phone] [address] [place] [address] Indemnity [id number] 2012 Medicare MEDICARE MEDICAR E A AND B [id number] 2012-Present [phone] [address] [address] [place] [address] Medicare [id number] 2012 Medicare MEDICARE MEDICAR E A AND B [id number] 2012-Present [phone] [place] [address] Medicare [id number] 2012 Medicare [id number] 1950 Unknown [id number] 1950 Unknown [id number] 1950 Unknown [id number] 1950 Unknown [id number] Social History Date Type Detail Facility Start: 01-07-2020 End: 06-09-2021 Tobacco smoking status Never smoked tobacco (finding) [facility] Sex Assigned At Female [facility] Start: 08-19-2021 End: 08-18-2022 Alcohol intake Current drinker of alcohol (finding) [facility] Start: 01-25-2018 History SDOH Alcohol Comment one drink at the holidays at times [facility] Start: 1950 Sex Assigned At Female [facility] Start: 08-09-2021 End: 08-19-2021 Exposure to SARS-CoV-2 (event) Not sure [facility] Start: 08-18-2022 Tobacco use and exposure Smokeless tobacco non-user [facility] NEGATED: Highlighted rowStart: NINF History of tobacco use Passive smoker [facility] Medical Equipment Procedure Code Equipment Code Equipment Origin al Text Equipment Identifier Dates [id number] FDA Start: 09-02-2019 {[id number] FDA Start: 09-30-2019 {[id number] FDA Start: 10-29-2019 Mesh Bio-A Synth etic 10x7cm Surgical Reinforcement Hernia Repair - [id number] Start: 02-14-2018 Clinical Notes 07-29-2021 to 08-18-2022 Sanjay Adkins MD - 08/18/2022 7:57 AM EDTTelephone Encounter - Tello Mak RN - 08/26/2021 3:32 PM EDTTelephone Encounter - Tello Mak RN - 08/26/2021 3:30 PM EDT Note Date & Type Note Facility 08-18-2022 Note HNO ID: [id number] Author: Sanjay Adkins MD Service: ? Author [...] 1. Iron def (more content not included)... [facility] 08-18-2022 History of Presen t illness Narrative [...] ulcers. The patient subsequently underwent surgery at [facility] (Dr. Garsia) on 02/14/2018. Her surgery [...] Sanjay Adkins MD documented in this encounter [facility] 08-26-2021 Miscellaneous Notes Call placed to [...] and see her back as scheduled. Thanks, BRM documented in this encounter [facility] 08-20-2021 Miscellaneous Notes Informed pt of [...] I will see her back as scheduled. Thanks, ALFONSO documented in this encounter [facility] 08-19-2021 Nurse Note Patient states that she is very tired. Deisy Andujar MA documented in this encounter [facility] 08-19-2021 History of Presen t illness [...] ulcers. The patient subsequently underwent surgery at [facility] (Dr. Garsia) on 02/14/2018. Her surgery [...] CC: Dr. Giordano documented in this encounter [facility] 07-29-2021 Evaluation + Plan note Extrac rashawn from: Title:ANES POSTOP MAC/GEN NOTE Author:Fernando Chaparro JR Date:07/29/21 Plan Transfer/ Discharge: Patient can be discharged from PACU when criteria met. Condition good. Extracted from: Title:ANES PREOP ENDO NOTE Author:Miladys Huizar JR, DO Date:07/29/21 Plan [place] [employer] Anesthesiologists (ASA) physical status classification: Class II. Anesthetic Preoperative Plan Anesthesia: Monitored anesthesia care and general anesthesia if required.. Anesthetic plan, risks, benefits, and alternatives discussed with the patient and/or family. Pt. and/or family present and agree to proceed as planned.. Discussed the importance of abstaining from tobacco products, and offered counseling if desired.. [facility] Hospital Discharge instructions Patient Education [...] including vitamins, herbs, eye drops, creams, and mcub-dho-foikrbz medicines. Any problems you or family members [...] home. Follow these instructions at home: Take dgdi-vul-tpehcjz and prescription medicines only as told by [...] 03/30/2006 Document Revised: 01/19/2018 Document Reviewed: 12/12/2017 [email or web address] Patient Education 2020 [employer]. 07/29/2021 08:24:23 Endoscopy, Care After Procedure [facility]) Endoscopy Care After Procedure Please read the instructions outlined below and refer to this sheet in the next few weeks. These discharge instructions provide you with general information on caring [facility] Your doctor may also give you specific [...] Document Re-Released: 07/31/2006 ExitCare Patient Information 2009 [employer]. Follow Up Care 06/09/2021 11:21:23 With:Roge OWEN Address: [address] [place] [address] Business (1) When:1 to 2 weeks Comments:Call for any problems. 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 Iron deficiency anemia secondary to blood loss (chronic) Paraesophageal hernia Diaphragmatic hernia without mention of obstruction or gangrene Monoclonal gammopathy of undetermined significance Monoclonal paraproteinemia documented in this encounter [facility] Diagnosis Monoclonal gammopathy of undetermined significance- Primary Monoclonal paraproteinemia History of iron deficiency Personal history of diseases of blood and blood-forming organs documented in this encounter [facility] course Narrative No data available for this section [facility] Dis[facility] instructions No data available for this section [facility] No data available for this section [facility] Summary Purpose Family History No Family History Records FoundNo Family History Records FoundNo Family History Records FoundNo Family History Records FoundNo Family History Records Found Advance Directives No Advanced Directives Records FoundDocuments on File Type Date Recorded Patient Optical Glass Silverer Expl anation Advance Directive(s) Advance Directive(s) 02/14/2018 11:56 AM Hospital Course Note HNO ID: [id number]: Leif anders (Res) MontelioneService: General SurgeryAuthor Type: ResidentType: Discharge SummariesFiled: 02/18/2018 8:30 AMNote Text:DISCHARGE SUMMARYPATIENT NAME: Brenda Mcclain ADMISSION DATE: 02/14/2018MRN: [id number] DISCHARGE DATE: 02/17/2018Attending: Monica Barros for Hospitalization: elective repair of paraesophageal herniaActive [...] section and content) DATE CREATED AUTHOR 02/19/2018 [facility] l DATE CREATED AUTHOR AUTHOR'S ORGANIZ ATION 04/14/2021 [facility] dical Specialist DATE CREATED AUTHOR AUTHOR'S ORGANIZ ATION 08/23/2022 [facility] DATE CREATED AUTHOR AUTHOR'S ORGANIZ ATION 01/09/2023 [facility] DATE CREATED AUTHOR AUTHOR'S ORGANIZ ATION 01/17/2023 [facility] dical Specialists EPIC Care Team (unrecognized sect ion and content) Hotel Concierge Relationship Specialty Start Date End Date Pam Villalobos PCP - General 12/07/07 Tello Mckeon (Rn), RN [id number] [place] [address] 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 General Surgery 01/24/18 Hotel Concierge Relationship Specialty Start Date End Date Pam Villalobos PCP - General 12/07/07 Tello Mckeon (Rn), RN [id number] [place] [address] 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 General Surgery 01/24/18 Hotel Concierge Relationship Specialty Start Date End Date Pam Villalobos PCP - General 12/07/07 Tello Mckeon (Rn), [place] [phone] [place] [address] 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 General Surgery 01/24/18 Source Comments (unrecognize d section and content) In the event this informatio n is protected by the Federal Confidentiality of Alcohol and Drug Abuse Patient Records regulations: The Federal rules restrict any use of the information to criminally investigate or prosecute any alcohol or drug abuse patient.[facility] the event this information is protected by the Federal Confidentiality of Alcohol and Drug Abuse Patient Records regulations: The Federal rules restrict any use of the information to criminally investigate or prosecute any alcohol or drug abuse patient.[facility] HospitalIn the event this information is protected by the Federal Confidentiality of Alcohol and Drug Abuse Patient Records regulations: The Federal rules restrict any use of the information to criminally investigate or prosecute any alcohol or drug abuse patient.[facility] Hospital[facility] the event this information is protected by the Federal Confidentiality of Alcohol and Drug Abuse Patient Records regulations: The Federal rules restrict any use of the information to criminally investigate or prosecute any alcohol or drug abuse patient.[facility] Reason for Visit (unrecogniz ed section [...] BE BASED ON THE PRIMARY CLINICAL RECORDS. [facility]. provides no warranty or guarantee of the accuracy or completeness of information in this document.
== END 2023-02-16 10:57 | disposition home or self-care (01) ==
LOC: VC 10:56
PROVIDERS: PCP Radiology Diagnostic Radiology; Visit Provider Radiology Diagnostic Radiology
DX: I83.813 Varicose veins of bilateral lower extremities with pain (principal)
CPT/HCPCS: 36466

== ENCOUNTER 2023-02-27 12:57 | Outpatient (OUT) | payer MEDICARE, BC, SELFPAY ==
--- NOTE | 2023-02-27 13:01 | VEIN_ITS ---
Patient Name: KEELEY CADE MR#: [id number] : 1950 Exam Date: 02/27/2023 Ordering Doctor: DR KAMRON ALFONSO M.D. RADIOLOGY REPORT PROCEDURE: FACILITY EST LMTD VEIN CENTER - OFFICE VISIT FOLLOW UP COMPARISON: [facility] EST LMTD, 02/03/2023. [facility] EST LMTD, 01/09/2023. PROGRESS NOTES: The patient reports no significant problems following micro foam chemical ablation. The patient did not require oral analgesics. The patient did wear her compression stocking. The patient has tried exercise after the procedure. Physical exam demonstrates multiple thrombosed varicose veins. No residual patent varicose veins are observed. No erythema or warmth to suggest cellulitis or thrombophlebitis. No active ulceration. Moderate hemosiderin staining, this was discussed with the patient and avoidance of sun exposure or use of a mineral sun screen was discussed. Moderate diffuse bilateral reticular and spider veins Review of the ultrasound performed the same day demonstrates occlusive thrombus extending throughout the treated varicose veins. No deep vein thrombus.. The patient expressed a desire to proceed with treatment of reticular and spider veins with injection sclerotherapy. VEIN/[facility] EST LMTD IMPRESSION: 1. Successful ablation of of treated varicose veins 2. Persistent bilateral reticular and spider veins. PLAN: Injection sclerotherapy of reticular and spider veins Nurse notes, history and physical were reviewed and confirmed, see attached forms. The nurse was present throughout the physical exam and consultation Dictated by: Kamron Alfonso MD on 02/27/2023 at 13:37 Approved by: Kamron Alfonso MD on 02/27/2023 at 13:42
--- NOTE | 2023-02-27 13:02 | VEIN_ITS ---
Patient Name: KEELEY CADE MR#: [id number] : 1950 Exam Date: 02/27/2023 Ordering Doctor: DR KAMRON ALFONSO M.D. RADIOLOGY REPORT PROCEDURE: VC EXT VENOUS LT LIMITED COMPARISON: VC EXT VENOUS LT LIMITED, 01/09/2023. VC EXT VENOUS LT LIMITED, 11/30/2022. INDICATIONS: I80.02 Phlebitis of superficial veins of lt lower extremity TECHNIQUE: Lower extremity botello scale and Duplex Doppler evaluation of the deep venous system from the inguinal ligament through the calf veins. FINDINGS: REGION: Left lower extremity. THROMBI: Negative for DVT. 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 COMPRESSIBILITY: Non-compressible segments corresponding to thrombus FLOW: Areas of no flow corresponding to thrombus OTHER: No patent varicose veins remain. CONCLUSION: Post ablation occlusion of treated left leg varicose veins Dictated by: Kamron Alfonso MD on 02/27/2023 at 13:25 Approved by: Kamron Alfonso MD on 02/27/2023 at 13:25
--- OUTSIDE RECORDS SUMMARY | 2023-02-27 13:06 | XMS_ITS | CCD ---
Author Name Unknown Address [address] [place] [address] Organization [facility] Care Team Providers Care Final Touch Up Painter Name Role Phone MONICA GARSAI) Unavailable Unavailable MONICA GARSIA) Unavailable Unavailable Pam [...] Propensity to adverse reactions (disorder) 8 Rash [facility] Other [place] Repository (6 sources) Cefuroxime; Translations: [CEFUROXIME AXETIL] Drug Allergy 8 GI Upset [facility] Repository (6 sources) Clindamycin; Translations: [CLINDAMYCIN HCL] Drug Allergy 8 Intolerance [facility] Repository (8 sources) Adhesive Tape; Translations: [Adhesive tape] Allergy to substance [facility] Medications Current Medications Medication Drug Class(es) Dates Sig (Normalized) Sig (Original) acetaminophen 500 mg oral tablet (7 sources) Start: 11-16-2017 take 500 mg by mouth every six hours as needed for pain Tylenol 500 mg, Oral, q6hr, PRN as needed for pain, Refills(s) 0 Start Date: 11/16/17 Status: Ordered [id number] 200 actuat albuterol 0.09 mg/actuat metered dose [...] BIDPC, # 60 tab(s), Refills(s) 0, Pharmacy: [email or web address], 161.5, cm, 10/09/19 6:34:00 EDT, Height/Length Dosing, 80.1, kg, 10/11/19 12:14:00 EDT, Weight Dosing Start Date: 10/29/19 Status: Ordered Start: 10-29-2019 Ecotrin 325 mg Tab-EC 325 mg = 1 tab(s), Oral, BIDPC, # 60 tab(s), Refills(s) 0, Pharmacy: [email or web address], 161.5, cm, 10/09/19 6:34:00 EDT, Height/Length [...] 11/17/17 Status: Ordered [facility] six hours as needed diphenhydrAMINE (BENADRYL) [...] constipation, # 40 cap(s), Refills(s) 0, Pharmacy: [email or web address], 161.5, cm, 10/09/19 6:34:00 EDT, Height/Length [...] day(s), # 90 cap(s), Refills(s) 1, Pharmacy: [email or web address], 161, cm, 07/29/21 7:13:00 EDT, Height/Length Dosing, 84, kg, 07/29/21 7:13:00 EDT, Weight Dosing Start Date: 09/23/21 Stop Date: 03/22/22 Status: Ordered Start: 06-09-2021 take 1 capsule by [facility] daily omeprazole 40 mg Cap-DR 40 mg = 1 cap(s), Oral, Daily, # 30 cap(s), Refills(s) 2, Pharmacy: [email or web address], 161, cm, 06/09/21 10:32:00 EDT, Height/Length Dosing, 84, kg, 06/09/21 10:32:00 EDT, Weight Dosing Start Date: 06/09/21 Status: Ordered Comment on above: Take 40 mg by mouth once daily. omeprazole 40 mg Cap-DR (2 sources) Start: take 1 capsule by mouth once daily omeprazole 40 mg Cap-DR 40 mg = 1 cap(s), Oral, Daily, # 30 cap(s), Refills(s) 2, Pharmacy: [email or web address], 161, cm, 06/09/21 10:32:00 EDT, Height/Length Dosing, 84, kg, 06/09/21 10:32:00 EDT, Weight Dosing Start Date: 06/09/21 Status: Ordered ondansetron 4 mg oral tablet (7 sources) Serotonin-3 Receptor Antagonist Start: take 4 mg by mouth twice daily as needed for nausea Zofran 4 mg, Oral, BID, PRN as needed for nausea/vomiting, Refills(s) 0 Start Date: 12/09/19 Status: Ordered polyethylene glycol 3350 00276 mg powder for oral solution (6 sources) [...] pain Dx: M17.12, Z96.642 Duration: 7 days, [facility], 161.5, cm, 10/09/19 6:34:00 EDT, Height/Length Dosing, 80.1, kg, 10/11/19 12... Start Date: 10/29/19 Status: Ordered Start: 10-29-2019 Percocet 325 m g-5 mg Tab See Instructions, as needed for pain, 40 tab(s), Refill(s) 0, 1-2 orally every 4-6hrs as needed for pain Dx: M17.12, Z96.642 Duration: 7 days, [facility], 161.5, cm, 10/09/19 6:34:00 EDT, [...] Basophils/100 WBC (Bld) 0.4 % Normal 0.0-2.0 [facility] Comment on above: Order Comment: Order Added by Discern Expert. Performed By: #### 1 [id number], 4084403, 7601541, 6295920 #### [facility] [address] [place] [address]281 Basophils/Leukocy maury Auto (Bld) [Pure # fraction] 0.0 E9/L Normal 0.0-0.2 [facility] Comment on above: Order Comment: Order Added by Discern Expert. Performed By: #### 1 6692429, 0284751, 6928541, 6298328 #### [facility] [address] [place] [address] 94708 Eosinophils/100 WBC (Bld) 5.9 % Normal 0.0-8.0 [facility] Comment on above: Order Comment: Order Added by Discern Expert. Performed By: #### 1 0721327, 8109984, 6394124, 3812168 #### [facility] [address] [place] [address] 31562 Eosinophils/Leuko cytes Auto (Bld) [Pure # fraction] 0.4 E9/L Normal 0.0-0.5 [facility] Comment on above: Order Comment: Order Added by Discern Expert. Performed By: #### 1 4602533, 9695076, 8370696, 9282407 #### [facility] [address] [place] [address] 44323 Lymphocytes/100 WBC (Bld) 30.4 % Normal 14.0-50.0 [facility] Comment on above: Order Comment: Order Added by Discern Expert. Performed By: #### 1 3532382, 2229270, 8349297, 9893434 #### [facility] [address] [place] [address] 78915 Lymphocytes/Leuko cytes Auto (Bld) [Pure # fraction] 2.0 E9/L Normal 1.0-4.0 [facility] Comment on above: Order Comment: Order Added by Discern Expert. Performed By: #### 1 7566514, 7271823, 8567202, 7854741 #### [facility] [address] [place] [address] 22557 Monocytes/100 WBC (Bld) 11.1 % Normal 4.0-14.0 [facility] Comment on above: Order Comment: Order Added by Discern Expert. Performed By: #### 1 3232662, 8548280, 7808965, 4732899 #### [facility] [address] [place] [address] 18960 Monocytes/Leukocy maury Auto (Bld) [Pure # fraction] 0.7 E9/L Normal 0.2-1.0 [facility] Comment on above: Order Comment: Order Added by Discern Expert. Performed By: #### 1 0016534, 4772637, 7168692, 0741370 #### [facility] [address] [place] [address] 38183 Neutrophils/100 WBC (Bld) 52.2 % Normal 36.0-75.0 [facility] Comment on above: Order Comment: Order Added by Discern Expert. Performed By: #### 1 2041661, 5880846, 9883463, 3522719 #### [facility] [address] [place] [address] 09110 Neutrophils/Leuko cytes Auto (Bld) [Pure # fraction] 3.5 E9/L Normal 2.0-7.5 [facility] Comment on above: Order Comment: Order Added by Discern Expert. Performed By: #### 1 6140939, 4927036, 8360917, 5259120 #### [facility] [address] [place] [address] 47736 CBC w/ Auto Diffon 3 Erythrocyte distribution width (RBC) [Ratio] 13.0 % Normal 10.9-14.2 [facility] Comment on above: Performed By: #### 1 0962779, 5216420, 1758339, 8496581 #### [facility] [address] [place] [address] Hematocrit (Bld) [Volume fraction] 42.3 % Normal 34.0-46.0 [facility] Comment on above: Performed By: #### 1 3553088, 0033988, 8420527, 4084692 #### [facility] [address] [place] [address] Hemoglobin (Bld) [Mass/Vol] 14.3 g/dL Normal 12.0-16.0 [facility] Comment on above: Performed By: #### 1 8048714, 9359089, 4756943, 6727438 #### [facility] [address] [place] [address] 60405 MCH (RBC) [Entitic mass] 31.7 pg Normal 27.0-34.0 [facility] Comment on above: Performed By: #### 1 9718668, 5999478, 6206405, 3563723 #### [facility] [address] [place] [address] 85732 MCHC (RBC) [Mass/Vol] 33.8 g/dL Normal 31.4-36.0 [facility] Comment on above: Performed By: #### 1 6399530, 9398966, 3951907, 4849500 #### [facility] [address] [place] [address] 01427 MCV (RBC) [Entitic vol] 93.7 fL Normal 80.0-100.0 [facility] Comment on above: Performed By: #### 1 9925764, 3562339, 6490767, 5727334 #### [facility] [address] [place] [address] 57292 Platelet mean volume (Bld) [Entitic vol] 8.2 fL Normal 6.4-10.8 [facility] Comment on above: Performed By: #### 1 4593959, 5065338, 4431169, 5515665 #### [facility] [address] [place] [address] 96860 Platelets (Bld) [#/Vol] 407.0 E9/L Normal 150.0-500.0 [facility] Comment on above: Performed By: #### 1 7025923, 5216268, 0262400, 2495373 #### [facility] [address] [place] [address] RBC (Bld) [#/Vol] 4.5 E12/L Normal 4.3-5.9 [facility] Comment on above: Performed By: #### 1 8070129, 8166378, 9097459, 7613559 #### [facility] [address] [place] [address] WBC corrected for nucl RBC Auto (Bld) [#/Vol] 6.6 E9/L Normal 4.0-11.0 [facility] Comment on above: Performed By: #### 1 0957320, 4362241, 5552718, 4978802 #### [facility] [address] [place] [address] CMPon 2023 Albumin [Mass/Vol] 3.7 g/dL Normal 3.3-5.0 [facility] Comment on above: Performed By: #### 1 6947784, 4065035, 6207201, 5352374 #### [facility] [address] [place], [place] [address] Albumin/Globulin (S) [Mass conc ratio] 0.9 Low 1.1-2.2 [facility] Comment on above: Performed By: #### 1 8647567, 6714885, 0573990, 3843321 #### [facility] [address] [place] [address] 47927 ALP [Catalytic activity/Vol] 108 Int._Unit/L High 21-98 [facility] Comment on above: Performed By: #### 1 7414276, 7700965, 2722742, 6378152 #### [facility] [address] [place] [address] 22002 ALT No additional P-5'-P [Catalytic activity/Vol] 18 Int._Unit/L Normal 6-46 [facility] Comment on above: Performed By: #### 1 7987678, 8059076, 2124575, 7219593 #### [facility] [address] [place] [address] AST [Catalytic activity/Vol] 20 Int._Unit/L Normal 5-43 [facility] Comment on above: Performed By: #### 1 8678759, 9777917, 8600688, 7497940 #### [facility] [address] [place] [address] Bilirubin [Mass/Vol] 0.7 mg/dL Normal 0.0-1.1 [facility] Comment on above: Performed By: #### 1 7505623, 0155568, 4818320, 8489907 #### [facility] [address] [place] [address] Creatinine [Mass/Vol] 1.0 mg/dL Normal 0.5-1.3 [facility] Comment on above: Performed By: #### 1 0754288, 6428278, 7748482, 4755640 #### [facility] [address] [place] [address] Globulin (S) [Mass/Vol] 4.1 g/dL High 1.4-4.0 [facility] Comment on above: Performed By: #### 1 2511956, 2120175, 2729903, 0846132 #### [facility] [address] [place] [address] Protein [Mass/Vol] 7.8 g/dL Normal 6.0-7.8 [facility] Comment on above: Performed By: #### 1 9243079, 7784736, 9523677, 3239773 #### [facility] [address] [place] [address] Urea nitrogen [Mass/Vol] 14 mg/dL Normal 5-21 [facility] Comment on above: Performed By: #### 1 4242627, 0255962, 0784954, 2256264 #### [facility] [address] [place] [address] Urea nitrogen/Creatini ne [Mass ratio] 14 No Units Normal 10-20 [facility] Comment on above: Performed By: #### 1 6820530, 3363437, 3616625, 7281178 #### [facility] [address] [place] [address] Anion gap [Moles/Vol] 12 mmol/L Normal 6-16 [facility] Comment on above: Performed By: #### 1 1088949, 7121366, 0891884, 3453787 #### [facility] [address] [place] [address] Calcium [Mass/Vol] 9.7 mg/dL Normal 8.9-11.1 [facility] Comment on above: Performed By: #### 1 8685349, 2888681, 7210741, 5421949 #### [facility] [address] [place] [address] Chloride [Moles/Vol] 106 mmol/L Normal 101-111 [facility] Comment on above: Performed By: #### 1 7412525, 3130856, 8184093, 1370996 #### [facility] [address] [place] [address] CO2 [Moles/Vol] 27 mmol/L Normal 21-31 [facility] Comment on above: Performed By: #### 1 2895023, 1368539, 7401056, 4691204 #### [facility] [address] [place] [address] Glucose [Mass/Vol] 95 mg/dL Normal 55-199 [facility] Comment on above: Result Comment: If t his glucose result represents a fasting glucose, interpretation should refer to the following reference range: 55-99 mg/dL Performed By: #### 1 3154078, 5322658, 4930309, 1515524 #### [facility] [address] [place] [address] Potassium [Moles/Vol] 3.9 mmol/L Normal 3.5-5.3 [facility] Comment on above: Performed By: #### 1 5495070, 4215302, 6179378, 8964507 #### [facility] [address] [place] [address] Sodium [Moles/Vol] 141 mmol/L Normal 135-145 [facility] Comment on above: Performed By: #### 1 9026492, 7380486, 8252001, 3587791 #### [facility] [address] [place] [address] Consent for Treatmenton 12-21 Consent for Treatment [id number] Normal [facility] Discharge Instructionson Discharge Instructions [id number] Normal [facility] ED Clinical Summaryon 2022 ED Clinical Summary [address] [address] ED Clinical Summary Person Information Name: BRENDA MCCLAIN [facility] Age: 73 Years : 1950 Sex: Female Language: Turkish PCP: Pam Villalobos MD Marital Status: Phone: [phone] Visit Id: Visit Reason: Rash; Headache - [...] 2023 14:40:42 2023 14:40:42 ADDRESS: [address] [facility] [id number] PHYS DOC NOTES: MEDICAL INFORMATION: Prescriptions Given: New Medications [facility], [address] [place], [place] [id number], [phone] ketoconazole topical (ketoconazole Top 2% Crm) 1 [...] up: With: Address: When: Pam Villalobos [address] [place] [address] [employer] (1[employer]ee[employer] In 3 days 01/11/2023 Comments: Call the [...] ED visit. (more content not included)... Normal [facility] ED Note-Physicianon 01-09-20 ED Note-Physician Basic [...] gm, Refill(s) 0, apply to fungal infection, [facility], 157.5, cm, 01/08/23 12:28:00 EST, Height/Length [...] IV diphenhydrAMINE (more content not included)... Normal [facility] Comment on above: Result Comment: Elec [...] conditioner or fan, if available. ? Apply expm-jmt-djusniq and prescription medicines only as told by [...] well after activity or exercise. Use a astronomy department chair on a cool setting to dry between [...] your skin and with medicines. ? Apply lwhg-rbw-oyytuux and prescription medicines only as told by [...] Reviewed: 11/22/2021 Elsevier Patient Education ? 2022 DNA13. Neurology Migraine Headache A migraine headache is [...] inflammation c (more content not included)... Normal [facility] ED Patient Summaryon 023 ED Patient Summary [address] [address] Patient Discharge Instructions Person Information Name: BRENDA MCCLAIN Age: 73 Years Arrival Date: 2023 12:14:08 Discharge Diagnosis: Candidal intertrigo; Classic migraine; Id reaction Primary Care Physician: Pam Villalobos MD Provider Information Primary Provider: Gray Moon DO Advanced Tax Investigator:None The exam and treatment you received in the Emergency Department were for an urgent problem and are not intended as complete care. It is important that you follow up with a doctor, nurse practitioner, or physician?s floral assistant for ongoing care. If your symptoms become [...] With: Address: When: Pam Villalobos [address] [place] [address] Business (1) In 3 days [...] opioids can be used to help relieve pbovaljd-mc-romufn pain and are often prescribed following a [...] a pl (more content not included)... Normal [facility] eGFRon 2023 GFR/1.73 sq M.predicted among non-blacks MDRD (S/P/Bld) [Vol rate/Area] 59 mL/min/1.73 m2 Normal >=59 [facility] Comment on above: Order Comment: Order added by Discern Expert. Result Comment: Insurance Customer Service Specialist jas kidney disease could be indicated at eGFR's of less than 60 mL/min/1.73m2. Kidney failure is indicated at less than 15 mL/min/1.73m2. Performed By: #### 1 5227546, 8620678, 6775601, 2916764 #### [facility] [address] [place] [address] BUNon 08-24-2022 Urea nitrogen [Mass/Vol] 23 mg/dL High 5-21 [facility] Comment on above: Performed By: #### 1 8831026, 4485630, 4331911, 2261559 #### [facility] [address] [place] [address] CHEMISTRYOrdered By: SYSTEM SYSTEM on 08-24-2022 Albumin [...] 1.0 mg/dL Normal 0.5 - 1.3 mg/dL [facility] Remisol GFR/1.73 sq M.predicted among non-blacks MDRD (S/P/Bld) [Vol rate/Area] 59 mL/min/1.73 m2 Normal >=59mL/min/ 1.73 m2 [facility] Chem S Globulin (S) [Mass/Vol] 3.6 g/dL Normal 1.4 - 4.0 gm/dL [facility] Remisol Protein [Mass/Vol] 7.6 g/dL Normal 6.0 - 7.8 gm/dL [facility] Urea nitrogen [Mass/Vol] 23 mg/dL High 5 - 21 mg/dL [facility] Consent for Treatmenton Consent for Treatment [id number] Normal [facility] Creatinineon 08-24-2022 Creatinine [Mass/Vol] 1.0 mg/dL Normal 0.5-1.3 [facility] Comment on above: Performed By: #### 1 4254817, 7675789, 2823536, 3057949 #### [facility] [address] [place] [address] Hep Func Panelon 08-24-2022 Bilirubin.indirec t [Mass or moles/Vol] UTC Abnormal 0.1-0.9 [facility] Comment on above: Result Comment: Resu lt verified by Discern Rule. Performed result UTC (Unable to Calculate) was sent as an Alpha code due the inability to calculate a valid numeric value. Performed By: #### 1 3394554, 1094361, 7634911, 5582003 #### [facility] [address] [place] [address] Albumin [Mass/Vol] 4.0 g/dL Normal 3.3-5.0 [facility] Comment on above: Performed By: #### 1 0430369, 0477563, 6334257, 0797161 #### [facility] [address] [place] [address]873 Albumin/Globulin (S) [Mass conc ratio] 1.1 Normal 1.1-2.2 [facility] Comment on above: Performed By: #### 1 3563547, 6496260, 1728063, 0374487 #### [facility] [address] [place] [address] 22762 ALP [Catalytic activity/Vol] 93 Int._Unit/L Normal 21-98 [facility] Comment on above: Performed By: #### 1 3161556, 3535464, 0227595, 7541733 #### [facility] [address] [place] [address] 68152 ALT No additional P-5'-P [Catalytic activity/Vol] 19 Int._Unit/L Normal 6-46 [facility] Comment on above: Performed By: #### 1 8280144, 7980359, 7212344, 5047392 #### [facility] [address] [place] [address] 10448 AST [Catalytic activity/Vol] 24 Int._Unit/L Normal 5-43 [facility] Comment on above: Performed By: #### 1 4838088, 9380041, 7271528, 4258039 #### [facility] [address] [place] [address] Bilirubin [Mass/Vol] 0.6 mg/dL Normal 0.0-1.1 [facility] Comment on above: Performed By: #### 1 9288952, 7157324, 8762780, 2944692 #### [facility] [address] [place] [address] Globulin (S) [Mass/Vol] 3.6 g/dL Normal 1.4-4.0 [facility] Comment on above: Performed By: #### 1 8711443, 9267897, 9112723, 8751004 #### [facility] [address] [place] [address] Protein [Mass/Vol] 7.6 g/dL Normal 6.0-7.8 [facility] Comment on above: Performed By: #### 1 1195597, 2381543, 7027568, 1192178 #### [facility] [address] [place] [address] Bilirubin.direct [Mass/Vol] mg/dL Normal 0.1-0.4 [facility] Comment on above: Performed By: #### 1 3816056, 0685494, 2532356, 8117568 #### [facility] [address] [place] [address] Physician Orderon 08-24-2022 Physician Order [id number] Normal [facility] eGFRon 08-24-2022 GFR/1.73 sq M.predicted among non-blacks MDRD (S/P/Bld) [Vol rate/Area] 59 mL/min/1.73 m2 Normal >=59 [facility] Comment on above: Order Comment: Order Added by Discern Expert. Result Comment: Insurance Customer Service Specialist jas kidney disease could be indicated at eGFR's of less than 60 mL/min/1.73m2. Kidney failure is indicated at less than 15 mL/min/1.73m2. Performed By: #### 1 0711245, 7336212, 1151073, 0320776 #### [facility] [address] [place] [address] Candido 08-22-2022 CNPN Telephone (PEVESA) BRENDA MCCLAIN ([id number]) 1950 F Date Time Provider Department 08/22/22 [...] Status:Closed by MAYA GUIDRY on 08/22/22 Normal [facility] FERRITIN BLDon 08-19-2022 Ferritin [Mass/Vol] 108.0 ng/mL 14.7 - 205.1 ng/mL [facility] Iron and Iron binding capaci ty panelon 08-19-2022 Iron [Mass/Vol] 143 ug/dL 41 - 186 ug/dL [facility] Iron binding capacity [Mass/Vol] 336 ug/dL 232 - 386 ug/dL [facility] Iron/TIBC [Molar ratio] 42.6 % 15.0 - 57.0 % [facility] Basic metabolic 2000 panelon 08-18-2022 Anion gap [Moles/Vol] 9 mmol/L Normal 9-18 [facility] Comment on above: Order Comment: Speci men Type: BLOOD SPECIMEN Ordering Facility: [facility] Address: [address] [place] [address] [place] [address] Performed By: #### 2 4321-2 #### [facility] CLIA [id number] [address] [place] [address] Calcium [Mass/Vol] 9.9 mg/dL Normal 8.5-10.2 [facility] Comment on above: Order Comment: Speci men Type: BLOOD SPECIMEN Ordering Facility: [facility] Address: [address] [place] [address] Performed By: #### 2 4321-2 #### [facility] CLIA [id number] [address] [place] [address] Chloride [Moles/Vol] 102 mmol/L Normal 97-105 [facility] Comment on above: Order Comment: Speci men Type: BLOOD SPECIMEN Ordering Facility: [facility] Address: [address] [place] [address] Performed By: #### 2 4321-2 #### [facility] CLIA [id number] [address] [place] [address] CO2 [Moles/Vol] 29 mmol/L Normal 22-30 [facility] Comment on above: Order Comment: Speci men Type: BLOOD SPECIMEN Ordering Facility: [facility] Address: [address] [place] [address] Performed By: #### 2 4321-2 #### [facility] CLIA [id number] [address] [place] [address] Creatinine [Mass/Vol] 1.05 mg/dL High 0.58-0.96 [facility] Comment on above: Order Comment: Speci men Type: BLOOD SPECIMEN Ordering Facility: [facility] Address: [address] [place] [address] Performed By: #### 2 4321-2 #### [facility] CLIA [id number] [address] [place] [address] ESTIMATED GLOMERULAR FILTRATION RATE 56 mL/min/1.73m??? Low >=60 [facility] Comment on above: Order Comment: Speci men Type: BLOOD SPECIMEN Ordering Facility: [facility] Address: [address] [place] [address] Result Comment: Elsy mated Glomerular Filtration Rate [...] GFR. Performed By: #### 2 4321-2 #### [facility] CLIA [id number] [address] [place] [address] 49676 Glucose [Mass/Vol] 70 mg/dL Low 74-99 [facility] Comment on above: Order Comment: Ajay nath Type: BLOOD SPECIMEN Ordering Facility: [facility] Address: [address] [address] Result Comment: The [place] [employer] (ADA) provides guidance for cutoff [...] Standards of Medical Care in Diabetes 2016, [place] [employer]. Diabetes Care. 2016.39(Suppl 1). Performed By: #### 2 4321-2 #### [facility] CLIA [id number] [address] [place] [address] 99474 Potassium [Moles/Vol] 3.7 mmol/L Normal 3.7-5.1 [facility] Comment on above: Order Comment: Ajay nath Type: BLOOD SPECIMEN Ordering Facility: [facility] Address: [address] [address] Performed By: #### 2 4321-2 #### [facility] CLIA [id number] [address] [place] [address] 09564 Sodium [Moles/Vol] 140 mmol/L Normal 136-144 [facility] Comment on above: Order Comment: Ajay nath Type: BLOOD SPECIMEN Ordering Facility: [facility] Address: [address] [address] Performed By: #### 2 4321-2 #### [facility] CLIA [id number] [address] [place] [address] 69241 Urea nitrogen [Mass/Vol] 21 mg/dL Normal 7-21 [facility] Comment on above: Order Comment: Speci men Type: BLOOD SPECIMEN Ordering Facility: [facility] Address: [address] [id number] Performed By: #### 2 4321-2 #### [facility] CLIA [id number] [address] [place] [address] 49038 Anion gap [Moles/Vol] 9 mmol/L 9 - 18 mmol/L [facility] Calcium [Mass/Vol] 9.9 mg/dL 8.5 - 10.2 mg/dL [facility] Chloride [Moles/Vol] 102 mmol/L 97 - 105 mmol/L [facility] CO2 [Moles/Vol] 29 mmol/L 22 - 30 mmol/L [facility] Creatinine [Mass/Vol] 1.05 mg/dL High 0.58 - 0.96 mg/dL [facility] Estimated Glomerular Filtration Rate 56 mL/min/1.73m Low >=60 mL/min/1.73 m [facility] Glucose [Mass/Vol] 70 mg/dL Low 74 - 99 mg/dL [facility] Potassium [Moles/Vol] 3.7 mmol/L 3.7 - 5.1 mmol/L [facility] Sodium [Moles/Vol] 140 mmol/L 136 - 144 mmol/L [facility] Urea nitrogen [Mass/Vol] 21 mg/dL 7 - 21 mg/dL [facility] CBC W Auto Differential pane l (Bld)on 08-18-2022 Basophils (Bld) [#/Vol] 0.04 10*3/uL Normal <0.11 [facility] Comment on above: Order Comment: Speci men Type: BLOOD SPECIMEN Ordering Facility: [facility] Address: [address] [id number] Performed By: #### 5 7021-8 #### [facility] CLIA [id number] [address] [place] [address] 12928 Basophils/100 WBC (Bld) 0.6 % Normal [facility] Comment on above: Order Comment: Speci men Type: BLOOD SPECIMEN Ordering Facility: [facility] Address: [address] [address] Performed By: #### 5 7021-8 #### [facility] CLIA [id number] [address] [place] [address] 94670 Differential cell count method Nom (Bld) Auto Normal [facility] Comment on above: Order Comment: Speci men Type: BLOOD SPECIMEN Ordering Facility: [facility] Address: [address] [address] Performed By: #### 5 7021-8 #### [facility] CLIA [id number] [address] [place] [address] 84822 Eosinophils (Bld) [#/Vol] 0.21 10*3/uL Normal <0.46 [facility] Comment on above: Order Comment: Speci men Type: BLOOD SPECIMEN Ordering Facility: [facility] Address: [address] [address] Performed By: #### 5 7021-8 #### [facility] CLIA [id number] [address] [place] [address] 18920 Eosinophils/100 WBC (Bld) 3.3 % Normal [facility] Comment on above: Order Comment: Speci men Type: BLOOD SPECIMEN Ordering Facility: [facility] Address: [address] [address] Performed By: #### 5 7021-8 #### [facility] CLIA [id number] [address] [place] [address] 21495 Erythrocyte distribution width (RBC) [Ratio] 13.3 % Normal 11.5-15.0 [facility] Comment on above: Order Comment: Speci men Type: BLOOD SPECIMEN Ordering Facility: [facility] Address: [address] [address] Performed By: #### 5 7021-8 #### [facility] CLIA [id number] [address] [place] [address] 09990 Hematocrit (Bld) [Volume fraction] 41.1 % Normal 36.0-46.0 [facility] Comment on above: Order Comment: Speci men Type: BLOOD SPECIMEN Ordering Facility: [facility] Address: [address] [place] [address] Performed By: #### 5 7021-8 #### [facility] CLIA [id number] [address] [place] [address] 53471 Hemoglobin (Bld) [Mass/Vol] 13.8 g/dL Normal 11.5-15.5 [facility] Comment on above: Order Comment: Speci men Type: BLOOD SPECIMEN Ordering Facility: [facility] Address: [address] [place] [address] Performed By: #### 5 7021-8 #### [facility] CLIA [id number] [address] [place] [address] 92550 Immature granulocytes (Bld) [#/Vol] 0.03 10*3/uL Normal <0.10 [facility] Comment on above: Order Comment: Speci men Type: BLOOD SPECIMEN Ordering Facility: [facility] Address: [address] [place] [address] Performed By: #### 5 7021-8 #### [facility] CLIA [id number] [address] [place] [address] 49173 Immature granulocytes/100 WBC (Bld) 0.5 % Normal [facility] Comment on above: Order Comment: Speci men Type: BLOOD SPECIMEN Ordering Facility: [facility] Address: [address] [place] [address] Performed By: #### 5 7021-8 #### [facility] CLIA [id number] [address] [place] [address] 98623 Lymphocytes (Bld) [#/Vol] 1.99 10*3/uL Normal 1.00-4.00 [facility] Comment on above: Order Comment: Speci men Type: BLOOD SPECIMEN Ordering Facility: [facility] Address: [address] [address] Performed By: #### 5 7021-8 #### [facility] CLIA [id number] [address] [place] [address] 43207 Lymphocytes/100 WBC (Bld) 31.4 % Normal [facility] Comment on above: Order Comment: Speci men Type: BLOOD SPECIMEN Ordering Facility: [facility] Address: [address] [address] Performed By: #### 5 7021-8 #### [facility] CLIA [id number] [address] [place] [address] 82177 MCH (RBC) [Entitic mass] 31.7 pg Normal 26.0-34.0 [facility] Comment on above: Order Comment: Speci men Type: BLOOD SPECIMEN Ordering Facility: [facility] Address: [address] [address] Performed By: #### 5 7021-8 #### [facility] CLIA [id number] [address] [place] [address] 34170 MCHC (RBC) [Mass/Vol] 33.6 g/dL Normal 30.5-36.0 [facility] Comment on above: Order Comment: Speci men Type: BLOOD SPECIMEN Ordering Facility: [facility] Address: [address] [address] Performed By: #### 5 7021-8 #### [facility] CLIA [id number] [address] [place] [address] 16043 MCV (RBC) [Entitic vol] 94.3 fL Normal 80.0-100.0 [facility] Comment on above: Order Comment: Speci men Type: BLOOD SPECIMEN Ordering Facility: [facility] Address: [address] [place] [address] Performed By: #### 5 7021-8 #### [facility] CLIA [id number] [address] [place] [address] 43838 Monocytes (Bld) [#/Vol] 0.76 10*3/uL Normal <0.87 [facility] Comment on above: Order Comment: Speci men Type: BLOOD SPECIMEN Ordering Facility: [facility] Address: [address] [address] Performed By: #### 5 7021-8 #### [facility] CLIA [id number] [address] [place] [address] 30886 Monocytes/100 WBC (Bld) 12.0 % Normal [facility] Comment on above: Order Comment: Speci men Type: BLOOD SPECIMEN Ordering Facility: [facility] Address: [address] [address] Performed By: #### 5 7021-8 #### [facility] CLIA [id number] [address] [place] [address] 99609 Neutrophils (Bld) [#/Vol] 3.30 10*3/uL Normal 1.45-7.50 [facility] Comment on above: Order Comment: Speci men Type: BLOOD SPECIMEN Ordering Facility: [facility] Address: [address] [address] Performed By: #### 5 7021-8 #### [facility] CLIA [id number] [address] [place] [address] 20273 Neutrophils/100 WBC (Bld) 52.2 % Normal [facility] Comment on above: Order Comment: Speci men Type: BLOOD SPECIMEN Ordering Facility: [facility] Address: [address] Performed By: #### 5 7021-8 #### [facility] CLIA [id number] [address] [place] [address] 24452 Nucleated RBC (Bld) [#/Vol] 10*3/uL Normal <0.01 [facility] Comment on above: Order Comment: Speci men Type: BLOOD SPECIMEN Ordering Facility: [facility] Address: [address] Performed By: #### 5 7021-8 #### [facility] CLIA [id number] [facility] [place] [address] Nucleated RBC/100 WBC (Bld) [Ratio] 0.0 /100 WBC Normal [facility] Comment on above: Order Comment: Speci men Type: BLOOD SPECIMEN Ordering Facility: [facility] Address: [address] [place] [address] Performed By: #### 5 7021-8 #### [facility] CLIA [id number] [address] [place] [address] 41914 Platelet mean volume (Bld) [Entitic vol] 9.5 fL Normal 9.0-12.7 [facility] Comment on above: Order Comment: Speci men Type: BLOOD SPECIMEN Ordering Facility: [facility] Address: [address] [place] [address] Performed By: #### 5 7021-8 #### [facility] CLIA [id number] [address] [place] [address] 50654 Platelets (Bld) [#/Vol] 404 10*3/uL High 150-400 [facility] Comment on above: Order Comment: Speci men Type: BLOOD SPECIMEN Ordering Facility: [facility] Address: [address] [place] [address] Performed By: #### 5 7021-8 #### [facility] CLIA [id number] [address] [place] [address] 15010 RBC (Bld) [#/Vol] 4.36 10*6/uL Normal 3.90-5.20 [facility] Comment on above: Order Comment: Speci men Type: BLOOD SPECIMEN Ordering Facility: [facility] Address: [address] [place] [address] Performed By: #### 5 7021-8 #### [facility] CLIA [id number] [address] [place] [address] 25388 WBC (Bld) [#/Vol] 6.33 10*3/uL Normal 3.70-11.00 [facility] Comment on above: Order Comment: Speci men Type: BLOOD SPECIMEN Ordering Facility: [facility] Address: [place] [address] Performed By: #### 5 7021-8 #### [facility] CLIA [id number] [address] [place] [address] 72376 Basophils (Bld) [#/Vol] 0.04 10*3/uL <0.11 k/uL [facility] Basophils/100 WBC (Bld) 0.6 % [facility] Differential cell count method Nom (Bld) Auto [facility] Eosinophils (Bld) [#/Vol] 0.21 10*3/uL <0.46 k/uL [facility] Eosinophils/100 WBC (Bld) 3.3 % [facility] Erythrocyte distribution width (RBC) [Ratio] 13.3 % 11.5 - 15.0 % [facility] Hematocrit (Bld) [Volume fraction] 41.1 % 36.0 - 46.0 % [facility] Hemoglobin (Bld) [Mass/Vol] 13.8 g/dL 11.5 - 15.5 g/dL [facility] Immature granulocytes (Bld) [#/Vol] 0.03 10*3/uL <0.10 k/uL [facility] Immature granulocytes/100 WBC (Bld) 0.5 % [facility] Lymphocytes (Bld) [#/Vol] 1.99 10*3/uL 1.00 - 4.00 k/uL [facility] Lymphocytes/100 WBC (Bld) 31.4 % [facility] MCH (RBC) [Entitic mass] 31.7 pg 26.0 - 34.0 pg [facility] MCHC (RBC) [Mass/Vol] 33.6 g/dL 30.5 - 36.0 g/dL [facility] MCV (RBC) [Entitic vol] 94.3 fL 80.0 - 100.0 fL [facility] Monocytes (Bld) [#/Vol] 0.76 10*3/uL <0.87 k/uL [facility] Monocytes/100 WBC (Bld) 12.0 % [facility] Neutrophils (Bld) [#/Vol] 3.30 10*3/uL 1.45 - 7.50 k/uL [facility] Neutrophils/100 WBC (Bld) 52.2 % [facility] Nucleated RBC (Bld) [#/Vol] <0.01 k/uL [facility] Nucleated RBC/100 WBC (Bld) [Ratio] 0.0 /100 WBC [facility] Platelet mean volume (Bld) [Entitic vol] 9.5 fL 9.0 - 12.7 fL [facility] Platelets (Bld) [#/Vol] 404 10*3/uL High 150 - 400 k/uL [facility] RBC (Bld) [#/Vol] 4.36 10*6/uL 3.90 - 5.2 0 m/uL [facility] WBC (Bld) [#/Vol] 6.33 10*3/uL 3.70 - 11.00 k/uL [facility] CNOVSPon 08-18-2022 CNOVSP Visit (SP) Office ( [facility]) BRENDA MCCLAIN ([id number]) 1950 F Date Time Provider Department 08/18/22 [...] petechiae. LABOR (more content not included)... Normal [facility] Ferritin [Mass/Vol] 108.0 ng/mL Normal 14.7-205.1 [facility] Comment on above: Order Comment: Speci men Type: BLOOD SPECIMEN Ordering Facility: [facility] Address: [address] [place] [id number] Performed By: #### 2 885-2, 1066-4, 16050-9 #### [facility] CLIA [id number] [address] [place] IMMUNOFIXATION SCREEN, SERUM on 08-18-2022 INTERPRETATION (MPA) Atypical restricted bands are present in the IgG and lambda regions. Consistent with IgG lambda monoclonal gammopathy. Normal [facility] Comment on above: Order Comment: Speci men Type: BLOOD SPECIMEN Ordering Facility: [facility] Address: [address] [place] [address] Performed By: #### I FESC #### [facility] CLIA [id number] [address] [place] [address] [facility] MPA RESULT M protein is present. Abnormal No M protein is identified. [facility] Comment on above: Order Comment: Larai pham Type: BLOOD SPECIMEN Ordering Facility: [facility] Address: [address] [place] [address] Performed By: #### I FES #### [facility] CLIA [id number] [address] [place] [address] OF [place] [facility] ([facility]) Reviewed by Zaira Fishman MD Normal [facility] Comment on above: Order Comment: Speci men Type: BLOOD SPECIMEN Ordering Facility: [facility] Address: [address] [place] [address] Performed By: #### I FESC #### [facility] CLIA [id number] [address] [place] [address] [place] IMMUNOGLOBULINS GAMon 2022 IgA [Mass/Vol] 335 mg/dL Normal 70-400 [facility] Comment on above: Order Comment: Larai men Type: BLOOD SPECIMEN Ordering Facility: [facility] Address: [address] [place] [address] Performed By: #### S ERIMM #### [facility] CLIA [id number] [facility] [id number] [address] [place] IgG [Mass/Vol] 1369 mg/dL Normal 700-1600 [facility] Comment on above: Order Comment: Speci men Type: BLOOD SPECIMEN Ordering Facility: [facility] Address: [address] Performed By: #### S ERIMM #### [facility] CLIA [id number] [address] [place] [address] [place] IgM [Mass/Vol] 151 mg/dL Normal 40-230 [facility] Comment on above: Order Comment: Speci men Type: BLOOD SPECIMEN Ordering Facility: [facility] Address: [address] Performed By: #### S ERIMM #### [facility] CLIA [id number] [address] [place] [address] [place] Iron and Iron binding capaci ty panelon 08-18-2022 Iron [Mass/Vol] 143 ug/dL Normal 41-186 [facility] Comment on above: Order Comment: Speci men Type: BLOOD SPECIMEN Ordering Facility: [facility] Address: [address] Performed By: #### 2 885-2, 2276-4, 80087-5 #### [facility] CLIA [id number] [address] [place] [address] [place] Iron binding capacity [Mass/Vol] 336 ug/dL Normal 232-386 [facility] Comment on above: Order Comment: Speci men Type: BLOOD SPECIMEN Ordering Facility: [facility] Address: [address] Performed By: #### 2 885-2, 2276-4, 85981-2 #### [facility] CLIA [id number] [address] [address] [place] Iron/TIBC [Molar ratio] 42.6 % Normal 15.0-57.0 [facility] Comment on above: Order Comment: Speci men Type: BLOOD SPECIMEN Ordering Facility: [facility] Address: [address] [place] [address] Performed By: #### 2 885-2, 2276-4, 94886-4 #### [facility] CLIA [id number] [address] [place] [address] [place] KAPPA/GOMEZ,FREE,SERon 2022 Immunoglobulin light chains.kappa.free (S) [Mass/Vol] 32.1 mg/L High 3.3-19.4 [facility] Comment on above: Order Comment: Speci men Type: BLOOD SPECIMEN Ordering Facility: [facility] Address: [address] [place] [address] Result Comment: Rare ly, increased serum free light chains levels may not be detected or accurately quantified due to prozone phenomenon or in high viscosity samples using this immunoturbidimetric assay. Correlation with other laboratory results and clinical findings is recommended. The Perkins Free Light Chain was performed using the Binding Site Optilite immunoturbidimetric method. Result obtained with different assay methods or kits cannot be used interchangeably. Performed By: #### K LFRS #### [facility] CLIA [id number] [address] [place] [address] [place] Immunoglobulin light chains.kappa/Immu noglobulin light chains.lambda (S) [Mass ratio] 1.10 Normal 0.26-1.65 [facility] Comment on above: Order Comment: Speci men Type: BLOOD SPECIMEN Ordering Facility: [facility] Address: [address] [place] [address] Performed By: #### K LFRS #### [facility] CLIA [id number] [address] [place] [address] [place] Immunoglobulin light chains.lambda.kurt e [Mass/Vol] 29.2 mg/L High 5.7-26.3 [facility] Comment on above: Order Comment: Speci men Type: BLOOD SPECIMEN Ordering Facility: [facility] Address: [address] [place], [place] [address] Result Comment: Rare ly, increased serum free [...] interchangeably. Performed By: #### K LFRS #### [facility] CLIA [id number] [address] [place] [address] [place] PROTEIN ELECTROPHORESIS SERU M WITH DARÍO (P)on 08-18-2022 Albumin [Mass/Vol] 4.20 g/dL Normal 3.43-5.41 [facility] Comment on above: Order Comment: Speci men Type: BLOOD SPECIMEN Ordering Facility: [facility] Address: [address] [place] [address] Performed By: #### L [id number] #### [facility] CLIA [id number] [address] [place] [address] [place] Alpha 1 globulin Elph [Mass/Vol] 0.29 g/dL Normal 0.18-0.43 [facility] Comment on above: Order Comment: Speci men Type: BLOOD SPECIMEN Ordering Facility: [facility] Address: [address] [place] [address] Performed By: #### L [id number] #### [facility] CLIA [id number] [address] [place] [address] [place] Alpha 2 globulin Elph [Mass/Vol] 0.60 g/dL Normal 0.42-0.98 [facility] Comment on above: Order Comment: Speci men Type: BLOOD SPECIMEN Ordering Facility: [facility] Address: [address] [place] [address] Performed By: #### L [id number] #### [facility] CLIA [id number] [facility] [id number] [address] [place] Beta globulin Elph [Mass/Vol] 1.01 g/dL Normal 0.61-1.17 [facility] Comment on above: Order Comment: Ajay nath Type: BLOOD SPECIMEN Ordering Facility: [facility] Address: [address] [place] [address] Performed By: #### L [id number] #### [facility] CLIA [id number] [address] [place] [address] [place] COMMENT (SERUM PROT ELECTRO) Monoclonal Protein analysis (immunofixation) is not indicated. Normal [facility] Comment on above: Order Comment: Larai pham Type: BLOOD SPECIMEN Ordering Facility: [facility] Address: [address] [place] [address] Performed By: #### L [id number] #### [facility] CLIA [id number] [address] [place] [address] [place] Gamma globulin Elph [Mass/Vol] 1.30 g/dL Normal 0.53-1.51 [facility] Comment on above: Order Comment: Larai pham Type: BLOOD SPECIMEN Ordering Facility: [facility] Address: [address] [place] [address] Performed By: #### L [id number] #### [facility] CLIA [id number] [address] [place] [address] [place] INTERPRETATION COMMENT FOR PROTEIN ELECTROPHORESIS Normal [facility] Comment on above: Order Comment: Ajay pham Type: BLOOD SPECIMEN Ordering Facility: [facility] Address: [address] [place] [address] Result Comment: See separate immunofixation report for characterization of monoclonal gammopathy. M protein is present on the background of a polyclonal immunoglobulin population. Quantitation of the M protein may overestimate the amount of M protein present. Performed By: #### L [id number] #### [facility] CLIA [id number] [address] [place] [address] [place] M-PROTEIN LOCATION Gamma Fraction 1 Normal [facility] Comment on above: Order Comment: Speci men Type: BLOOD SPECIMEN Ordering Facility: [facility] Address: [address] Performed By: #### L [id number] #### [facility] CLIA [id number] [address] [place] [address] [place] Protein Fractions [Interp] An M protein is identified on protein electrophoresis. Abnormal No definitive M protein is identified on protein electrophor esis. [facility] Comment on above: Order Comment: Speci men Type: BLOOD SPECIMEN Ordering Facility: [facility] Address: [address] Performed By: #### L [id number] #### [facility] CLIA [id number] [address] [place] [address] [place] Protein.monoclona l Elph [Mass/Vol] 0.42 g/dL High <=0.00 [facility] Comment on above: Order Comment: Speci men Type: BLOOD SPECIMEN [facility] [facility] Address: [address] Performed By: #### L [id number] #### [facility] CLIA [id number] [address] [place] [address] [place] SPE STAFF REVIEW Reviewed by Zaira Fishman MD Normal [facility] Comment on above: Order Comment: Speci men Type: BLOOD SPECIMEN Ordering Facility: [facility] Address: [address] Performed By: #### L [id number] #### [facility] CLIA [id number] [address] [place] [address] [place] Prot SerPl-mCncon 08-18-2022 Protein [Mass/Vol] 7.4 g/dL Normal 6.3-8.0 [facility] Comment on above: Order Comment: Speci men Type: BLOOD SPECIMEN Ordering Facility: [facility] Address: [address] Performed By: #### 2 885-2, 2276-4, 93932-4 #### [facility] [place] [id number] [address] [place] [address] [facility] Coding Summary.on 05-26-2022 Coding Summary. CD:[id number] Ww+PGhlYWQ+ SI3MQGAzO10iuETzlG2yC3JHCYlSMpr cMNAKXVlASmDlnaNsAC3lfTEnXLHi IC8+AC1rJYVcJehnpSDbl3I9tEQ3W21 zwl9sLYtopGH1WJOfUbBxmtoqd6jilZ b5ZDrwNincZtKw TIEvzL27GUT0eC38Ji79pKRhkHLci8d guHa0LgMoAOGlUGI6gRxaTJgek8VdOU YnH62zrADpg1H2 BOUyyUutsLHmByMsgYB4tL5gDHbelnu zv5kktpjlRlu3na14gZXem7H0oFU5M9 YsvbB8HVBdfVDs ClijhQDYhD6hagjyv4eyqcdkOlBoOWL uGWj7VVd8CECjpKqjBkIfDB49TVP6CV IblmSyC6ExCMRe bTydYzA8k5L6Iz8KE3GDAkhyG6EIIYC SWTwvdGQ+DV66xj41D7OzYsyvApf0VO NhDST4cJM5tV9m BLJlTLydk1N2iYE1S7LmhqYcur7ik5x vPSQrXBsbO23wyROkj6L6LKTfsRI9AR SmiLscEqAxsB93 Oyc+YIEkaLxzi2FwHczvq1bij6gmyUv 6IjboHNNwhcKepBilOAL2j4ChUv8cYF QaeWZ1xZN2dU7q EdLkYpK6LXihN278UtBztOUiNfeaB78 lI9InjLA+TQZvLyq7BZXnqBzzUZ5hJ7 BhZGRpbmctbGVm pXwbMR7tMYDvgedoPYSqtG7gYWQxS1u 4HyPgEqY8IFfrS3LdNWWxdzrzJr99pZ 3mRjNtPzD7HWcf K7HwzyN9SYLxxAEpCUefAGI5T45ov0J 9DHOzJJHtTKJ6gEL5eZ3fiBhrrotipP VmdDsgdmVydGlj VCltRXxyO228URIutRnbKoTyFGkqMiB EYXRlOiAgMDQvMDYvMjAyMzwvdGQ+PH SrVTC4uCskKACr aXHgCCwvSx2rlItzaRdsOV0fKOEljwk mKVFqhD1gPOLkdIDqbVumPQ4kWNUvxy eyd943IyAzUDX4 YFRljQRtK9AbaZ4hXcVeRNZfLGBxC7Z weHXfANgsO537PCwrQhO3JUAgdnXdP6 FsLWFsaWduOiB0 g6O1Yg5Lz7DpughgH1RvgZKbDuJxVod uPFs3Q7MhNyqymSA+RH00EHBrUP69YC b6QYZ4lWuwDLlv KTAwH2EclK2fGjJcHCLrIIDcKin+PHR hYmxlIHdpZHRoPScxMDAlJyBzdHlsZT 3lEg3dALNcMMWg lXabyZIvGiMeo7jvZVWtAYfwPQ5epTo wV3XifHL3UQLkq6o3Ga02I79dN6TiuS A+IFOydYM0qMH7 xP5jWtQbKyI4WFooX192MdDlpLQoWsj tl1muy7dirGz1GyD7TERtbtVbpVwyOQ Y4i7KoPg12T94u SYusXWIoOXQsPZFdGTPdySziri9lgP2 wIi8+DJRyxEU8gOJ7eU2rUjNyWxW6FP vqN978PhScpVGt Dense4xzm1fadPg4ReNpXCUvyxDprJv qGLC3h2UrTt16D2TgtYyie7WqNjc8zs 42rUKle7Y8gVU9 T2DdTYWrzbwjaHMkjTlfTH3aNQCdhpy uDGThcY7wUFJjM5e4JnZhGxB8YIehE3 KfsiY9NOPpoNRe TUVgzPDAmL2doiaes3bdhllwVyOrMEK xZAp4JXi7WYRhdSgrXqAyLXE4MmQ1AG B3sLHtkI4vpXql qoclsM2cEzl+NTF2iQAmhUOGYN7eOtb vdGQ+FJOoTQB3kNztAKcdQBXjiU3hRH KvQ5u2EiRxJmM0 BAwqS1HcijB1TEEgjLRgOXNeqHXLdN6 elbhgc2hcgjxpRwKjGIYtGEf8WUk4PH FsaWduOiBsZWZ0 AdE4BVD8qPZlaC6ltWzinzrbpM0dSoo +BcskqFpvMPQ3KVb1V7ZuHzm8GYQufS tyQO3qsYQeBCrb Hi7yyTrsqGvmGU1oQXMszhbbv834DcR hp1rxBDEkvSOkVCixLLI1G66ok0T1HS NzONEfCVJ0wBT5 jN0cuUuswyjdmIXlwXnjaiDdwPlsJCb lQEpoS751USNuzHbnHrIeBEu1Q9EuAs g1QAFmaFaySF4f fUSyELdqJk0lwGaloZemYG5lLHDgocs lu269VeVti2apVJHejSAhSKjwWPX9T4 1xw4M8JHDwMSTw ATB8iAF3hG6mdFsbhuaphLTsbMsyuiK dwXomICgdLRnmU385IANviLnbDzZrbG t8S0MxNuo4UTYv bHiaFW4jpGLxORyyYq8ohFsbkHpeYW9 wAPWupqzsb657SwTug2yhJDUfkAXlJO fgHQI8C04yi3P0 LZRlDXXxIZN5fYP0hK6yoZphxkeauER jqLuovrWdfBbaUQhsFMxbZ315VAVdkQ snPlBhdGllbnQg EOelXXo4O0JkBgzywYH+MY76FQNmJB5 6vHBdkNLtl6davDw2QmCkABYoFJK8lN msLVlbb4EcKLVa B28wiTVhw5S3GARuzOkgdIYzJnLdnYL 2nA2pRXgswobue8toazzzYgkcz1ftkj 49mG38F62cQBsi NDBlVCPdHYBiOZAzmOdcyp4zxU2aRp8 +TFMvtUF1jCM0pW5pHPQeNrQ6JUfdG8 49InRvcCIvPjxj w8wvu8jyiYt5ZvI1FRXligZvtFbwDBS 3h1RaTz06T88pBBssAILhVFGfJUFtJS VupWgfkx6kpG5q Ii8+VPRtlNY1yGE3mF3sIlWqSiM2AEu aH587JfQdjNPjPgadF86dR7WerPR+PH FrIip3HZBhdHrc XQ6ssNXiSLmfFf2xMOA8FoKjLjMjOEf fC5XcOPDnlkpssaequRO5OUOrBZJelM 31Wf7euAclBOVy iFFSgC1asdmyi0eqsuwzLsNvAWObUFx 9PIg6HYWzyFiwDlIuIDB3BlI1JGT8kP HdsX3wnYvtqfik nL8zV2SzPXEawtamAr30qG7tGbUsKlR 1MGluOyc+AtBJHGjgOGPSL5tMPZv3R7 FhPmk2VDLqeIpe JY3pzYQaNXjjFv4wbQnmqOxxIO5iIIX lwhiyUHUztJ0hHTYqpEGoaAzoXH8dRS Mssxqrq725RvZi TJG4BVKiiMXlH2RjeW3mVtLkGFNoUPK nC8EtfXUyZFqkG715FCsqSqU1EUCrwk DtD6KpOWWivKzc MaC8a1Q7Ub0zKU0gKM4vEYU7HP47UW3 7cNTit2B2lZF7C2MeJKHubszzbuohlA B3HWOxXZFtqH31 nYShFAatVv6au7A1n437HNXvICGhrK5 8Uc7gtQvkPTWrvAVRpN9jenspi4fcld ogIzAwMDAwMDt0 EHd2HXNdtXcpQxCxXTZ8NiA4ABU3qGU lcR1eiUxgxfpdyB5jXmi+NzQgWWVhcn S7E7WkQsu6IYDm jUzuHE8czBVnOGisOx1lrYefdMzcSO3 nPBEfgowwFZQugQ6zMPAtiVCacJdvBW 9cIAImphfnb777 ZmIeAIL2GNAuzUMyJ7ZzeY5wGxHwYFE bOHAjF7VgmNHzYMnrN186TZzgPgZ5IQ NtkuDiK0QnNIVw aBulLhJ6c5G0Dw7HPM7nlRM2M2SdLtp 3KZIecBysSZ3clPYpUTegRa9iuQqtpO faPJ2iIDVuftmn EGAdaZ5bUOPcvWXpqSrrCE5gPOCdhcd uj059WbEkUQP4VCEiaTLtE3AboL1rAk IfCSBxEUSsC0Kr aLRoWHovW286RZbrKbQ0KBXioaFnQ1V rWPOspTwqLtJ5h0V9Jl7TyCQnQROuID 00TS62HL45N4Hk PjwvdGFibGU+PHRhYmxlIHdpZHRoPSc qDUAiDxQecTnfCM4tAo0xDWMqGUMfrW zsfVEeFlIfj7ip KAKpFWmdEA9qaCubB5PukFH1LYJmq3a 9Wc84O98sX1NuoGX+MOWjpJV5uFT4lO 1xAmBnEqT7AZdf P010XrTazTHsQhjcd6pyz4aikGp6WiD dMUNqswVuqIbuTYJ9x5TiGa76Y81nXB dpZHRoPSIyMCUi DOMzcGpqei9tpB0oXy2+XXBxaYM8sFO 1sH7xZnCyInK8VSzjW255ZaWreKIzFz gqU78qF4BhkWD+ IPTwKqa8TEKumCopIL3ffIRvEKgkLs2 vAGW0IhEcHzEmXBplC4BtNDBqbjatnv hbgSZ6RCEgAQCw eU90Qb7oxMmcAw2aRJOxBVY8SOJvfDR xY7OmeT9zKvQqJCBgDSGzQ0UjaPSoFG gvX201KKhqSfC8 GZBbjpIsC3QkOCWlzCyoFsU9i9Z5Uf0 RvPxzkKKoZI0pKrVgGYa1F2NkStj3ZN FsvCkdHD8cjBLr PHziCz1buYxrqWeaRO3oYHQwiaoli17 3EtPos3tiDJCivWYbQCvqDYA6H07jv5 U2OTWvVWSpVOS2 uRJ6eS3azGkxtvbhxVTrnAuepkUqyNo bDMtwCTbjJ382RVHbfLwpXtOBBym7D5 ZeAwe8SIVxtSee GI5evBMnQOchZz6pzOznaCrrUS5qGDE hnlxkx615ZfBor2baQOIzzIBdRXwkDS A2V76wo0A3LKOs WAYtPUG2yKB5aG8ihVebyzbfeFZnzVb slcXmrBnhDYebXJxxA385TRQirLzoQy 5IKmg7C8NdUyb8 NYLufOwyPN8zxGXtCMhhJf9usPogoTp wHZ6kRTBxmkmvf883StMsq0dyYZSuoL QyLWapAAW5H97b d0W6COQyCBFhMOC6sEB0iE9zqRvdqhi kkRXtjVcaqfObpXuyNUtmMFjoE005US RvcDsnPlBheWVy OjwvdGQ+VY25gj01L6LoAkgdTke7ZSZ uNDV2pPS9sL5aBALuXYmoc4X0tKS2X3 ChmaYaue0uc2hz YXBzZTog (more content not included)... Normal [facility] [place] Mamm Screen w/CAD if perf [...] very important to your health. The current [place] [employer] and National Comprehensive Cancer [...] Category 1-Negative Recommendation: Normal interval follow-up Normal [facility] Consent for Treatmenton 03- Consent for Treatment [id number] Antolin Cohen [facility] Candido 08-26-2021 CNPN Telephone (HEMASA) RAYOBRENDA Miller ([id number]) 1950 F Date Time Provider Department 08/26/21 [...] Status:Closed by TELLO MAK on 08/26/21 Normal [facility] Complete Blood Count with Au to Diffon 04-13-2021 Basophils (Bld) [#/Vol] 0.06 10*3/uL Normal 0.00-0.20 [facility] Comment on above: Performed By: #### C MP, LIPD, CBCAD #### [facility] [address] [place], [place] [id number] Basophils/100 WBC (Bld) 0.8 % Normal [facility] Comment on above: Performed By: #### C MP, LIPD, CBCAD #### [facility] [address] [place], [place] [id number] Eosinophils (Bld) [#/Vol] 0.52 10*3/uL High 0.02-0.50 [facility] Comment on above: Performed By: #### C MP, LIPD, CBCAD #### [facility] [address] [place], [place] [id number] Eosinophils/100 WBC (Bld) 7.3 % Normal [facility] Comment on above: Performed By: #### C MP, LIPD, CBCAD #### [facility] [address] [place], [place] [id number] Erythrocyte distribution width (RBC) [Ratio] 13.1 % Normal 11.0-15.0 [facility] Comment on above: Performed By: #### C MP, LIPD, CBCAD #### [facility] [address] [place], [place] [id number] Hematocrit (Bld) [Volume fraction] 43.9 % Normal 35.0-47.0 [facility] Comment on above: Performed By: #### C MP, LIPD, CBCAD #### [facility] [address] [place], [place] [id number] Hemoglobin (Bld) [Mass/Vol] 14.5 g/dL Normal 11.6-15.5 [facility] Comment on above: Performed By: #### C MP, LIPD, CBCAD #### [facility] [address] [place], [place] [id number] Lymphocytes (Bld) [#/Vol] 2.4 10*3/uL Normal 0.9-3.9 [facility] Comment on above: Performed By: #### C MP, LIPD, CBCAD #### [facility] [address] [place], [place] [id number] Lymphocytes/100 WBC (Bld) 34.2 % Normal [facility] Comment on above: Performed By: #### C MP, LIPD, CBCAD #### [facility] [address] [place], [place] [id number] MCH (RBC) [Entitic mass] 31.6 pg Normal 27.0-33.0 [facility] Comment on above: Performed By: #### C MP, LIPD, CBCAD #### [facility] [address] [place], [place] [id number] MCHC (RBC) [Mass/Vol] 33.0 g/dL Normal 32.0-36.0 [facility] Comment on above: Performed By: #### C MP, LIPD, CBCAD #### [facility] [address] [place], [place] [id number] MCV (RBC) [Entitic vol] 96 fL Normal 80-100 [facility] Comment on above: Performed By: #### C MP, LIPD, CBCAD #### [facility] [address] [place], [place] [id number] Monocytes (Bld) [#/Vol] 0.9 10*3/uL Normal 0.2-0.9 [facility] Comment on above: Performed By: #### C MP, LIPD, CBCAD #### [facility] [address] [place], [place] [id number] Monocytes/100 WBC (Bld) 13.0 % Normal [facility] Comment on above: Performed By: #### C MP, LIPD, CBCAD #### [facility] [address] [place], [place] [id number] Neutrophils (Bld) [#/Vol] 3.2 10*3/uL Normal 1.5-7.8 [facility] Comment on above: Performed By: #### C MP, LIPD, CBCAD #### [facility] [address] [place], [place] [id number] Neutrophils/100 WBC (Bld) 44.3 % Normal [facility] Comment on above: Performed By: #### C MP, LIPD, CBCAD #### [facility] [address] [place], [place] [id number] Platelet mean volume (Bld) [Entitic vol] 10.30 fL Normal 7.50-12.50 [facility] Comment on above: Performed By: #### C MP, LIPD, CBCAD #### [facility] [address] [place], [place] [id number] Platelets (Bld) [#/Vol] 453 10*3/uL High 140-400 [facility] Comment on above: Performed By: #### C MP, LIPD, CBCAD #### [facility] [address] [place], [place] [id number] RBC (Bld) [#/Vol] 4.59 10*6/uL Normal 3.90-5.20 [facility] Comment on above: Performed By: #### C SARAH BETH HOLGUIND, CBCAD #### [facility] [address] [place], [place] [id number] RDW-SD 45.7 fL Normal 37.0-50.0 [facility] Comment on above: Performed By: #### C MP, LIPD, CBCAD #### [facility] [address] [place], [place] [id number] WBC (Bld) [#/Vol] 7.1 10*3/uL Normal 3.8-11.0 [facility] Comment on above: Performed By: #### C SARAH BETH HOLGUIND, CBCAD #### [facility] [address] [place], [place] [id number] Comprehensive Metabolic Pane alfonzo 04-13-2021 Albumin [Mass/Vol] 4.5 g/dL Normal 3.6-5.1 [facility] Comment on above: Performed By: #### C CHELSIE, LIPD, CBCAD #### [facility] [address] [place], [place] [id number] Albumin/Globulin [Mass ratio] 1.6 {ratio} Normal 1.0-2.5 [facility] Comment on above: Performed By: #### C CHELSIE, LIPD, CBCAD #### [facility] [address] [place], [place] [id number] ALP [Catalytic activity/Vol] 125 U/L High 35-119 [facility] Comment on above: Performed By: #### C MP, LIPD, CBCAD #### [facility] [address] [place], [place] [id number] ALT [Catalytic activity/Vol] 12 U/L Normal 6-33 [facility] Comment on above: Result Comment: 01/20 Female reference range changed. Performed By: #### C MP, LIPD, CBCAD #### [facility] [address] [place], [place] [id number] Anion gap [Moles/Vol] 20 mmol/L Normal 12-20 [facility] Comment on above: Result Comment: Effe ctive 02/25/2019 reference range changed. Performed By: #### C MP, LIPD, CBCAD #### [facility] [address] [place], [place] [id number] AST [Catalytic activity/Vol] 20 U/L Normal 9-34 [facility] Comment on above: Performed By: #### C MP, LIPD, CBCAD #### [facility] [address] [facility] [place] [id number] Bilirubin [Mass/Vol] 0.55 mg/dL Normal 0.30-1.20 [facility] Comment on above: Performed By: #### C MP, LIPD, CBCAD #### [facility] [address] [place], [place] [id number] BUN/CREA 22 Ratio Normal 6-22 [facility] Comment on above: Performed By: #### C MP, LIPD, CBCAD #### [facility] [address] [place], [place] [id number] Calcium [Mass/Vol] 10.1 mg/dL Normal 8.6-10.2 [facility] Comment on above: Performed By: #### C MP, LIPD, CBCAD #### [facility] [address] [place], [place] [id number] Chloride [Moles/Vol] 104 mmol/L Normal 98-107 [facility] Comment on above: Performed By: #### C MP, LIPD, CBCAD #### [facility] [address] [place], [place] [id number] CO2 [Moles/Vol] 24 mmol/L Normal 20-31 [facility] Comment on above: Performed By: #### C MP, LIPD, CBCAD #### [facility] [address] [facility] [place] [id number] Creatinine [Mass/Vol] 0.9 mg/dL Normal 0.6-1.4 [facility] Comment on above: Performed By: #### C MP, LIPD, CBCAD #### [facility] [address] [facility] [place] [id number] eGFRAA 71 mL/min/1.73m2 Normal >60 [facility] Comment on above: Performed By: #### C MP, LIPD, CBCAD #### [facility] [address] [place], [place] [id number] eGFRNAA 58 mL/min/1.73m2 Low >60 [facility] Comment on above: Performed By: #### C LAURA HOLGUIN, CBCAD #### [facility] [address] [place], [place] [id number] Globulin (S) [Mass/Vol] 2.8 g/dL Normal 1.9-3.7 [facility] Comment on above: Performed By: #### C LAURA HOLGUIN, CBCAD #### [facility] [address] [place], [place] [id number] Glucose [Mass/Vol] 110 mg/dL High 65-99 [facility] Comment on above: Result Comment: For FASTING Glucose --- ADA reference ranges: Normal 65-99 mg/dl Prediabetes 100-125 Diabetes >/= 126 Performed By: #### C LAURA HOLGUIN, CBCAD #### [facility] [address] [place], [place] [id number] Potassium [Moles/Vol] 4.3 mmol/L Normal 3.5-5.5 [facility] Comment on above: Performed By: #### C LAURA HOLGUIN, CBCAD #### [facility] [address] [place], [place] [id number] Protein [Mass/Vol] 7.3 g/dL Normal 6.1-8.1 [facility] Comment on above: Performed By: #### C LAURA HOLGUIN, CBCAD #### [facility] [address] [place], [place] [id number] Sodium [Moles/Vol] 143 mmol/L Normal 135-146 [facility] Comment on above: Performed By: #### C LAURA HOLGUIN, CBCAD #### [facility] [address] [place], [place] [id number] Urea nitrogen [Mass/Vol] 20 mg/dL Normal 7-25 [facility] Comment on above: Performed By: #### C LAURA HOLGUIN, CBCAD #### [facility] [address] [place], [place] [id number] Lipid Panelon 04-13-2021 Cholesterol [Mass/Vol] 196 mg/dL Normal 125-200 [facility] Comment on above: Result Comment: Low risk < 200mg/dL Borderline risk 201-239 mg/dl High risk > or equal to 240 Performed By: #### C LAURA HOLGUIN, CBCAD #### [facility] [address] [place], [place] [id number] Cholesterol in HDL [Mass/Vol] 46 mg/dL Normal >40 [facility] Comment on above: Result Comment: High Cardiovascular Risk HDL <40 mg/dL Low Cardiovascular Risk HDL > or equal to 60 mg/dl Performed By: #### C CHELSIE, LIPD, CBCAD #### [facility] [address] [place], [place] [id number] Cholesterol in LDL [Mass/Vol] 98 mg/dL Normal [facility] Comment on above: Result Comment: LDL ATP III CLASSIFICATION LDL less than 100 mg/dl Optimal LDL 100-129 mg/dl Near or above optimal LDL 130-159 Borderline high LDL 160-189 High LDL greater than 189 mg/dl Very High Performed By: #### C CHELSIE, LIPD, CBCAD #### [facility] [address] [facility] [place] [id number] Cholesterol in VLDL [Mass/Vol] 52 mg/dL Normal [facility] Comment on above: Performed By: #### C LAURA HOLGUIN, CBCAD #### [facility] [address] [place], [place] [id number] Cholesterol.total /Cholesterol in HDL [Mass ratio] 4 {ratio} Normal [facility] Comment on above: Performed By: #### C SARAH BETH HOLGUIND, CBCAD #### [facility] [address] [facility] [place] [id number] Triglyceride [Mass/Vol] 262 mg/dL High 30-150 [facility] Comment on above: Result Comment: TRIG ATPIII CLASSIFICATIONS TRIG less than 150 mg/dl Normal TRIG 150-199 mg/dl Borderline High TRIG 200-500 mg/dl High TRIG greather than 500 mg/dl Very High Performed By: #### C CHELSIE, LIPD, CBCAD #### [facility] [address] [place] [id number] Basic Metabolic Panlon 02-17 Anion gap 3 molar conc 9 mmol/L Normal 9-18 [facility] Comment on above: Performed By: #### C BCDIF, BMP, MG1, PHOS, PT ####[place] [phone] Calcium mass conc 8.5 mg/dL Normal 8.5-10.5 [facility] Comment on above: Performed By: #### C BCDIF, BMP, MG1, PHOS, PT ####[place] [phone] Chloride molar conc 109 mmol/L Normal 98-110 [facility] Comment on above: Performed By: #### C BCDIF, BMP, MG1, PHOS, PT ####[place] [phone] CO2 molar conc 25 mmol/L Normal 23-32 [facility] Comment on above: Performed By: #### C BCDIF, BMP, MG1, PHOS, PT ####[place] [phone] Creatinine mass conc 0.62 mg/dL Low 0.70-1.40 [facility] Comment on above: Performed By: #### C BCDIF, BMP, MG1, PHOS, PT ####[place] [id number] eGFR- Amer. >60 Normal >60 [facility] Comment on above: Performed By: #### C BCDIF, BMP, MG1, PHOS, PT ####[place] [phone] GFR/1.73 sq M predicted among non-blacks MDRD vol rate/area (S/P/Bld) mL/min/{1.73_m2} Normal >60 [facility] Comment on above: Performed By: #### C BCDIF, BMP, MG1, PHOS, PT ####[place] [phone] Glucose mass conc 109 mg/dL High 65-100 [facility] Comment on above: Performed By: #### C BCDIF, BMP, MG1, PHOS, PT ####[place] [phone] Potassium molar conc 3.5 mmol/L Normal 3.5-5.0 [facility] Comment on above: Performed By: #### C BCDIF, BMP, MG1, PHOS, PT ####[place] [phone] Sodium molar conc 143 mmol/L Normal 132-148 [facility] Comment on above: Performed By: #### C BCDIF, BMP, MG1, PHOS, PT ####[place] [phone] Urea nitrogen mass conc 6 mg/dL Low 8-25 [facility] Comment on above: Performed By: #### C BCDIF, BMP, MG1, PHOS, PT ####[place] [phone] CBC and Differentialon 02-17 Abs Baso <0.03 Normal <0.11 [facility] Comment on above: Performed By: #### C BCDIF, BMP, MG1, PHOS, PT ####[place] [phone] Abs [place] 1.46 k/uL High <0.87 [facility] Comment on above: Performed By: #### C BCDIF, BMP, MG1, PHOS, PT ####[place] [phone] Abs Neut 7.50 k/uL Normal 1.45-7.50 [facility] Comment on above: Performed By: #### C BCDIF, BMP, MG1, PHOS, PT ####[place] [phone] Basophils/100 WBC Auto (Bld) 0.2 % Normal [facility] Comment on above: Performed By: #### C BCDIF, BMP, MG1, PHOS, PT ####[place] [address] DTYPE Auto Diff Normal [facility] Comment on above: Performed By: #### C BCDIF, BMP, MG1, PHOS, PT ####[place] [address] Eosinophils Auto #/vol (Bld) 0.29 10*3/uL Normal <0.46 [facility] Comment on above: Performed By: #### C BCDIF, BMP, MG1, PHOS, PT ####[place] [address] Eosinophils/100 WBC Auto (Bld) 2.8 % Normal [facility] Comment on above: Performed By: #### C BCDIF, BMP, MG1, PHOS, PT ####[place] [address] Erythrocyte distribution width Auto Ratio (RBC) 16.5 % High 11.5-15.0 [facility] Comment on above: Performed By: #### C BCDIF, BMP, MG1, PHOS, PT ####[place] [address] Hematocrit Auto Volume Fraction (Bld) 30.2 % Low 36.0-46.0 [facility] Comment on above: Performed By: #### C BCDIF, BMP, MG1, PHOS, PT ####[place] [address] Hemoglobin mass conc (Bld) 9.5 g/dL Low 11.5-15.5 [facility] Comment on above: Performed By: #### C BCDIF, BMP, MG1, PHOS, PT ####[place] [address] Lymphocytes Auto #/vol (Bld) 0.95 10*3/uL Low 1.00-4.00 [facility] Comment on above: Performed By: #### C BCDIF, BMP, MG1, PHOS, PT ####[place] [phone] Lymphocytes/100 WBC Auto (Bld) 9.3 % Normal [facility] Comment on above: Performed By: #### C BCDIF, BMP, MG1, PHOS, PT ####[place] [phone] MCH Auto Entitic mass (RBC) 28.7 pG Normal 26.0-34.0 [facility] Comment on above: Performed By: #### C BCDIF, BMP, MG1, PHOS, PT ####[place] [phone] MCHC Auto mass conc (RBC) 31.5 g/dL Normal 30.5-36.0 [facility] Comment on above: Performed By: #### C BCDIF, BMP, MG1, PHOS, PT ####[place] [phone] MCV Auto Entitic volume (RBC) 91.2 fL Normal 80.0-100.0 [facility] Comment on above: Performed By: #### C BCDIF, BMP, MG1, PHOS, PT ####[place] [phone] Monocytes/100 WBC Auto (Bld) 14.3 % Normal [facility] Comment on above: Performed By: #### C BCDIF, BMP, MG1, PHOS, PT ####[place] [phone] Neutrophils/100 WBC Auto (Bld) 73.4 % Normal [facility] Comment on above: Performed By: #### C BCDIF, BMP, MG1, PHOS, PT ####[place] [phone] Platelet mean volume Auto Entitic volume (Bld) 9.6 fL Normal 9.0-12.7 [facility] Comment on above: Performed By: #### C BCDIF, BMP, MG1, PHOS, PT ####[place] [id number] [place] [phone] Platelets Auto #/vol (Bld) 248 10*3/uL Normal 150-400 [facility] Comment on above: Performed By: #### C BCDIF, BMP, MG1, PHOS, PT ####[place] [phone] RBC Auto #/vol (Bld) 3.31 10*6/uL Low 3.90-5.20 [facility] Comment on above: Performed By: #### C BCDIF, BMP, MG1, PHOS, PT ####[place] [phone] WBC Auto #/vol (Bld) 10.22 10*3/uL Normal 3.70-11.00 [facility] Comment on above: Performed By: #### C BCDIF, BMP, MG1, PHOS, PT ####[place] [phone] Magnesiumon 02-17-2018 Magnesium mass conc 2.0 mg/dL Normal 1.7-2.6 [facility] Comment on above: Performed By: #### C BCDIF, BMP, MG1, PHOS, PT ####[place] [phone] NURSING PROGon 02-17-2018 Protein mass conc HNO ID: [id number] thor: Heidy (Rn) Tamar, RNService: (none)Author Type: Registered NurseType: Nursing Progress NoteFiled: 02/17/2018 1:46 PMNote Text: Nursing Progress NotePatient Name: Brenda Miller CoryN: [id number] [id number] walked with patient on RA satting 94%.0917 SROC paged [id number] Brenda Mcclain: phos 1.4 this AM does she needanything? Thanks, Heidy [id number] Juarez CM [facility] is set up.This note was completed by: Heidy Boyle RN [facility] Protein mass conc HNO ID: [id number] thor: Franchesca (Rn) Concepc[place], RNService: NursingAuthor Type: Registered NurseType: Nursing Progress NoteFiled: 02/17/2018 12:33 AMNote Text: Nursing Progress NotePatient Name: Brenda McclainMRN: [id number] Location: [facility]/UA-[id number] Daily Note:AANDO times 3. Patient has pain [...] note was completed by: Franchesca Beebe RN [facility] Phosphoruson 02-17-2018 Phosphate mass conc 1.4 mg/dL Low 2.5-4.5 [facility] Comment on above: Performed By: #### C BCDIF, BMP, MG1, PHOS, PT ####[facility] [place], [place] [phone] Protimeon 02-17-2018 INR Coag RelTime (Bld) 1.0 {INR} Normal 0.9-1.3 [facility] Comment on above: Result Comment: Danni min K Antagonist (VKA) Therapeutic Range: INR 2 to 3 (Target INR of 2.5)Note: For patients treated with VKA drugs, such as warfarin, the [place] [employer] 2012 Guideline recommends [...] al. Chest 2012, 141:7S-47SNishimiam RA, et al. [facility] 2017, 70: 252-289 Performed By: #### C BCDIF, BMP, MG1, PHOS, PT ####[facility] [place], [place] [phone] PT Sec 10.6 sec Normal 9.7-13.0 [facility] Comment on above: Performed By: #### C BCDIF, BMP, MG1, PHOS, PT ####[facility] [place], [place] [phone] Amylase,Body Fluidon 018 Amylase,Body Fluid 142 U/L Critically abnormal See Comment [facility] Comment on above: Result Comment: (NOT [...] CLSI document C49-A. JOSEFINA Giordano: Clinical LaboratoryStandards [place]; 2007.3. Donovan CL, Neel RC, Renzo DJ. Use of cyst fluid CEA,CA19-9, and amylase for evaluation of pancreatic lesions. ClinicalBiochemistry. 2009;42:4411-9055.This test was developed and its performance characteristicsdetermined by [facility] and[facility] [place] ([facility]).It has not been cleared or approved by the FDA. [facility] is regulatedunder CLIA as qualified to perform high-complexity testing.This test is used for clinical purposes. It should not be regarded asinvestigational or for research. Performed By: #### F AMYL ####[place] [address] Fluid Type Other Normal [facility] Comment on above: Result Comment: ACE D RAIN ABDOMEN Performed By: #### F AMYL ####[place] [id number] [place] [phone] CASE MANAGEMon 02-16-2018 CASE MANAGEM HNO ID: [id number] thor: Luisito Garnica (Rn) TRUDY Billervice: Case ManagementAuthor Type: Registered NurseType: Care Mgt Progress NoteFiled: 02/16/2018 1:55 PMNote Text:CARE MANAGEMENT DISCHARGE NOTESERVICE DATE: 02/16/2018SERVICE TIME: 1:55 PM LOS: 2 daysIM letter given to patient on 02.16.2018.SIGNATURE: Luisito Bill RN PATIENT NAME: Brenda Cooper: February 16, 2018 : 1:55 PM PAGER/CONTACT #: [phone] [facility] CASE MANAGEM HNO ID: [id number] thor: Luisito AlmarazRn) TRUDY Billervice: Case ManagementAuthor Type: Registered NurseType: Care Mgt Progress NoteFiled: 02/16/2018 1:44 PMNote Text:CARE MANAGEMENT DISCHARGE NOTESERVICE DATE: 02/16/2018SERVICE TIME:1:43 PM LOS: 2 days d/c plan is faye mehta [facility] # [phone] set to see pt Akagjm1902.18.2018 pending d/cSIGNATURE: Luisito Bill RN PATIENT NAME: Brenda Cooper: February 16, 2018 : 1:43 PM PAGER/CONTACT #: [phone] [facility] CASE MGT INIT ASSESon 2017 CASE MGT INIT ASS HNO ID: [id number]: Luisito AlmarazRn) TRUDY Billervice: Case ManagementAuthor Type: Registered NurseType: Care Mgt Initial AssessmentFiled: 02/16/2018 9:01 AMNote Text:CARE MANAGEMENT: ASSESSMENT AND DISCHARGE PLANSERVICE DATE: 02/16/2018SERVICE TIME: 8:58 AMPRIMARY CARE PHYSICIAN:Pam Villalobos, DIMITRIOShone: [phone] STATUS: InpatientMEDICAL:Patient/Repres entative Stated Goals:To improve my functional statusHealth Insurance: MEDICARE A AND BMedicareHealth Issues Impacting Discharge Plan: IBSLast Admission Date: Previous admit date: 01/23/2008Is this Within the Past 30 days? NoAdvance Directive:Current Advance Directive: NoneIn Chart: NoCare Translator/Interpreter Attempted to Assist with AD Completion: YesAction: [...] ShowerTub bench/chairHas the Patient Been in a Chcf Facility in the Past 30 days? NoSOCIAL:Living Arrangement: HomeLives With: SpouseFinancial Resources: RetiredPrimary Contact: Extended Emergency Contact InformationPrimary Emergency Contact: Danilo McclainAddress: [address] [place] [address] [facility] Zfqham Zmqfhkeb: SpouseSecondary Emergency Contact: Lea Montalvo Vecsnd Rdieupzw: DaughterSupportive: YesOther Important Patient Contacts: spouse cell [phone] Assessment:Caregiver is ready, willing and able to meet the patient's needs asrecommended by the inter-professional team? YesPatient's transition needs and plan for meeting these needs: pt requiresassistance w adls, therapy recommending HHC and pt agreeable andrequesting [facility]- referral sent and working on socDoes the patient have an acute stroke diagnosis, or has the patient had astroke during this admission? NoMedication Adherence:I am convinced of the importance of my prescription medication: Agreecompletely - 0I worry that my prescription medication will do more harm than good to meDisagree completely - 0I feel financially burdened by my qgo-xx-yijqso expenses for myprescription medication: Disagree mostly -0Patient [...] started working on SOC ANDcele MD for i4iDALVIOPJP: Luisito Bill RN PATIENT NAME: Brenda McclainDATE: February 16, 2018 : 8:58 AM PAGER/CONTACT #: [phone] [facility] NURSING PROGon 02-16-2018 Protein mass conc HNO ID: [id number] thor: Johanne Mann) Mello, RNService: NursingAuthor Type: Registered NurseType: Nursing Progress NoteFiled: 02/16/2018 5:53 PMNote Text: Nursing Progress NotePatient Name: Brenda McclainMRN: [id number] Location: [place] [address]/JW-CB4I-04 Pt A+Ox3, pleasant. Abdomen soft AND tender, [...] note was completed by: Johanne Sarkar RN [facility] PROGRESSon 02-16-2018 Protein mass conc HNO ID: [id number] thor: Ant (Elva)(Hist) SiderisService: General SurgeryAuthor Type: ResidentType: Progress NotesFiled: 02/17/2018 10:06 AMNote Text: Attestat ion signed by Alfie Martinez at 02/17/2018 11:22 AMPatient doing well. Progressing without any postop concerns. DC planning.Splenectomy vaccines to be given likely before DC home. General Surgery Progress NoteName: Brenda RayN: [id number] update:Overall, patient is doing well. No significant [...] 02/15/18699 - 02/16/18 0602/16/18699 - 02/17/18 0659Shift 2408-5351 3473-6123 0718-8727 24 Hour Total 5836-4745 4206-09908817-3186 24 Hour TotalINTAKE PO 0 650 650 [...] prior to DC if still here in 0-8tptb-Pcvmvqtsk incentive spirometry and ambulation, wean oxygen as tolerated-SCD's and [facility] for DVT prophylaxis-will likely discharge today or tomorrowAntroscoe Hayes MDGeneral Surgery, PGY-5Pager: [phone] Surgery Pager: [phone], weekdays 6A-6POn call pager: [phone], nights and weekends? Normal [facility] Phosphoruson 02-16-2018 Phosphate mass conc 1.7 mg/dL Low 2.5-4.5 [facility] Comment on above: Performed By: #### P HOS ####[facility] [place], [place] [phone] APTTon 02-15-2018 aPTT Coag time (Bld) 20.8 s Low 23.0-32.4 [facility] Comment on above: Result Comment: Unfr actionated [...] laboratory APTT reagent in use throughout the [facility]. Performed By: #### C BCDIF, PTT, PT, AMYL, BMP, MG1 ####[facility] [place], [place] [phone] Amylaseon 02-15-2018 Amylase enzyme act/vol 228 U/L High 0-137 [facility] Comment on above: Performed By: #### C BCDIF, PTT, PT, AMYL, BMP, MG1 ####[facility] [place], [place] [phone] Amylase,Body Fluidon 018 Amylase,Body Fluid 64 U/L Critically abnormal See Comment [facility] Comment on above: Result Comment: (NOT [...] CLSI document C49-A. JOSEFINA Giordano: Clinical LaboratoryStandards [place]; 2006.3. Donovan VIGIL, Neel MCLAUGHLIN, Renzo DJ. Use of cyst fluid CEA,CA19-9, and amylase for evaluation of pancreatic lesions. ClinicalBiochemistry. 2009;42:8565-4273.This test was developed and its performance characteristicsdetermined by [facility] ([facility]).It has not been cleared or approved by the FDA. [facility] is regulatedunder CLIA as qualified to perform high-complexity testing.This test is used for clinical purposes. It should not be regarded asinvestigational or for research. Performed By: #### F AMYL ####[place] [phone] [place], [place] [address] Fluid Type Gopi Pedro Drain Normal [facility] Comment on above: Performed By: #### F AMYL ####[place] [address] [address] Basic Metabolic Panlon 02-15 Anion gap 3 molar conc 11 mmol/L Normal 9-18 [facility] Comment on above: Performed By: #### C BCDIF, PTT, PT, AMYL, BMP, MG1 ####[place] [phone] Calcium mass conc 8.6 mg/dL Normal 8.5-10.5 [facility] Comment on above: Performed By: #### C BCDIF, PTT, PT, AMYL, BMP, MG1 ####[place] [phone] Chloride molar conc 105 mmol/L Normal 98-110 [facility] Comment on above: Performed By: #### C BCDIF, PTT, PT, AMYL, BMP, MG1 ####[place] [phone] CO2 molar conc 24 mmol/L Normal 23-32 [facility] Comment on above: Performed By: #### C BCDIF, PTT, PT, AMYL, BMP, MG1 ####[place] [address] Creatinine mass conc 0.72 mg/dL Normal 0.70-1.40 [facility] Comment on above: Performed By: #### C BCDIF, PTT, PT, AMYL, BMP, MG1 ####[place] [phone] eGFR- Amer. >60 Normal >60 [facility] Comment on above: Performed By: #### C BCDIF, PTT, PT, AMYL, BMP, MG1 ####[place] [phone] GFR/1.73 sq M predicted among non-blacks MDRD vol rate/area (S/P/Bld) mL/min/{1.73_m2} Normal >60 [facility] Comment on above: Performed By: #### C BCDIF, PTT, PT, AMYL, BMP, MG1 ####[place] [address] Glucose mass conc 195 mg/dL High 65-100 [facility] Comment on above: Performed By: #### C BCDIF, PTT, PT, AMYL, BMP, MG1 ####[place] [address] Potassium molar conc 4.3 mmol/L Normal 3.5-5.0 [facility] Comment on above: Performed By: #### C BCDIF, PTT, PT, AMYL, BMP, MG1 ####[place] [phone] Sodium molar conc 140 mmol/L Normal 132-148 [facility] Comment on above: Performed By: #### C BCDIF, PTT, PT, AMYL, BMP, MG1 ####[facility] [place] [phone] Urea nitrogen mass conc 14 mg/dL Normal 8-25 [facility] Comment on above: Performed By: #### C BCDIF, PTT, PT, AMYL, BMP, MG1 ####[facility] [place] [phone] CBC and Differentialon 02-15 Abs Baso <0.03 Normal <0.11 [facility] Comment on above: Performed By: #### A BINTB ####[place] [address] [phone] Abs [place] 0.74 k/uL Normal <0.87 [facility] Comment on above: Performed By: #### A BINTB ####[place] [address] [phone] Abs Neut 11.13 k/uL High 1.45-7.50 [facility] Comment on above: Performed By: #### A BINTB ####[place] [address] [address] [place] [phone] Basophils/100 WBC Auto (Bld) 0.1 % [facility] Comment on above: Performed By: #### A BINTB ####[place] [address] [address] [place] [phone] DTYPE Auto Diff Normal [facility] Comment on above: Performed By: #### A BINTB ####[place] [address] [address] [place] [phone] Eosinophils Auto #/vol (Bld) 10*3/uL Normal <0.46 [facility] Comment on above: Performed By: #### A BINTB ####[place] [address] [address] [place] [phone] Eosinophils/100 WBC Auto (Bld) 0.0 % [facility] Comment on above: Performed By: #### A BINTB ####[place] [phone] Erythrocyte distribution width Auto Ratio (RBC) 16.6 % High 11.5-15.0 [facility] Comment on above: Performed By: #### A BINTB ####[place] [phone] Hematocrit Auto Volume Fraction (Bld) 35.4 % Low 36.0-46.0 [facility] Comment on above: Performed By: #### A BINTB ####[place] [phone] Hemoglobin mass conc (Bld) 11.6 g/dL Normal 11.5-15.5 [facility] Comment on above: Performed By: #### A BINTB ####[place] [phone] Lymphocytes Auto #/vol (Bld) 0.65 10*3/uL Low 1.00-4.00 [facility] Comment on above: Performed By: #### A BINTB ####[place] [phone] Lymphocytes/100 WBC Auto (Bld) 5.2 % Normal [facility] Comment on above: Performed By: #### A BINTB ####[place] [phone] MCH Auto Entitic mass (RBC) 28.9 pG Normal 26.0-34.0 [facility] Comment on above: Performed By: #### A BINTB ####[place] [phone] MCHC Auto mass conc (RBC) 32.8 g/dL Normal 30.5-36.0 [facility] Comment on above: Performed By: #### A BINTB ####[place] [phone] MCV Auto Entitic volume (RBC) 88.3 fL Normal 80.0-100.0 [facility] Comment on above: Performed By: #### A BINTB ####[address] [phone] Monocytes/100 WBC Auto (Bld) 5.9 % Normal [facility] Comment on above: Performed By: #### A BINTB ####[place] [phone] Neutrophils/100 WBC Auto (Bld) 88.8 % Normal [facility] Comment on above: Performed By: #### A BINTB ####[address] [phone] Platelet mean volume Auto Entitic volume (Bld) 9.3 fL Normal 9.0-12.7 [facility] Comment on above: Performed By: #### A BINTB ####[place] [phone] Platelets Auto #/vol (Bld) 261 10*3/uL Normal 150-400 [facility] Comment on above: Performed By: #### A BINTB ####[address] [phone] RBC Auto #/vol (Bld) 4.01 10*6/uL Normal 3.90-5.20 [facility] Comment on above: Performed By: #### A BINTB ####[address] [phone] WBC Auto #/vol (Bld) 12.53 10*3/uL High 3.70-11.00 [facility] Comment on above: Performed By: #### A BINTB ####[address] [phone] Magnesiumon 02-15-2018 Magnesium mass conc 2.1 mg/dL Normal 1.7-2.6 [facility] Comment on above: Result Comment: Revi ewed Performed By: #### C BCDIF, PTT, PT, AMYL, BMP, MG1 ####[facility] [place], [place] [phone] NURSING PROGon 02-15-2018 Protein mass conc HNO ID: [id number] thor: Dionisio (Rn) TRUDY Leungervice: (none)Author Type: Registered NurseType: Nursing Progress NoteFiled: 02/15/2018 6:27 PMNote Text: Nursing Progress NotePatient Name: Brenda McclainMRN: [id number] Location: [place] [address]/BP-NX0W-72 Daily Note:02/15/18 1030- [facility]30. Patient is [...] note was completed by: Dionisio Leung RN [facility] Protein mass conc HNO ID: [id number] thor: Amber (Rn) TRUYD Martinezervice: (none)Author Type: Registered NurseType: Nursing Progress NoteFiled: 02/15/2018 10:31 AMNote Text: Nursing Progress NotePatient Name: Brenda McclainMRN: [id number] Location: [place] [address]/HD-HUM-83 Daily Note:0700. Report received from shift mgr RN. Patient resting comfortably inbed at this time. Vital signs stable.0800. Assessment complete; see documentation.0915. Arterial line removed and pressure applied until hemostasis wasachieved.0920. Attempted to call report. Nurse unavailable.0950. Report called to RN on PK3A who will be resuming care of patient.1010. Beck catheter removed.1015. [facility] on portable O2. Allbelongings and chart sent with patient.This note was completed by: Amber Martinez RN [facility] Protein mass conc HNO ID: [id number] thor: Ari Thacker Rn: (none)Author Type: Registered NurseType: Nursing Progress NoteFiled: 02/15/2018 8:02 AMNote Text: Nursing Progress NotePatient Name: Brenda McclainMRN: [id number] Location: [place] [address]/WI-CBT-34 Daily Note:2315: Received report from Aaron DIETZ.0000: Assessment complete, see flow sheet. VSS.0344: Reassessment complete, see flow sheet. PRN labetolol given per MARfor SBP . 160. All other VSS.0725: Report given to Saurabh Clark note was completed by: Negro Beualieu RN [facility] Protein mass conc HNO ID: [id number] thor: Ari Davison Rn: (none)Author Type: Registered NurseType: Nursing Progress NoteFiled: 02/14/2018 11:21 PMNote Text: Nursing Progress NotePatient Name: Brenda McclainMRN: [id number] Location: [place] [address]/LW-XJO-76 Daily Note:2029: Patient [facility] bed 8 with OR team, patient bathed andplaced on 3L NC. Pt drowsy at this time. Please see flowsheets forassessments.2044: Dr. Lawler and Dr. Rivera in to see patient upon arrival, ordersreceived.2049: Labs sent.2114: Family brought back and updated on patient.2199: Patient remains drowsy d/t anesthesia, nods appropriately.2299: Report given to Luis DIETZ.This note was completed by: Aaron Mcdermott RN [facility] PROGRESSon 02-15-2018 Protein mass conc HNO ID: [id number] thor: Surendra (Elva) Mooseervice: General SurgeryAuthor Type: ResidentType: Progress NotesFiled: 02/15/2018 8:42 AMNote Text:General Surgery Progress NoteName: Brenda McclainMRN: [id number] update:Overall, patient is doing well. No significant [...] 02/15/18 0659 02/15/18 0700 - 02/16/18 0659Shift 7649-3801 4157-7486 8795-2894 24 Hour Total 0925-8917 9422-34064436-8073 24 Hour TotalINTAKE IV 3500 927 4427 [...] and SQ for DVT prophylaxis-Dispo[facility] todayDiscussed with Dr. Garsia?M ninfa Kumar, MDPGY-1 Resident, General SurgeryPager: [phone]; Dated: February 15, 2018, 8:38 AM? Normal [facility] Phosphoruson 02-15-2018 Phosphate mass conc 2.9 mg/dL Normal 2.5-4.5 [facility] Comment on above: Performed By: #### P HOS ####[facility] [place], [place] [phone] Protimeon 02-15-2018 INR Coag RelTime (Bld) 1.0 {INR} Normal 0.9-1.3 [facility] Comment on above: Result Comment: Danni min K Antagonist (VKA) Therapeutic Range: INR 2 to 3 (Target INR of 2.5)Note: For patients treated with VKA drugs, such as warfarin, the [place] [employer] 2012 Guideline recommends [...] al. Chest 2012, 141:7S-47SNishimura RA, et al. [facility] 2017, 70: 252-289 Performed By: #### C BCDIF, PTT, PT, AMYL, BMP, MG1 ####[facility] [place], [place] [phone] PT Sec 10.5 sec Normal 9.7-13.0 [facility] Comment on above: Performed By: #### C BCDIF, PTT, PT, AMYL, BMP, MG1 ####[facility] [place], [place] [phone] THERAPY NTon 02-15-2018 THERAPY NT HNO ID: [id number] thor: Milagro (Ot) YocabetService: Occupational TherapyAuthor Type: Occupational TherapistType: Therapy (PT/OT/Speech/Resp)Filed: 02/15/2018 10:26 AMNote Text:Occupational Therapy EvaluationSERVICE DATE: 02/15/2018SERVICE TIME: 0850 to 0913ROOM: [id number] Discharge Disposition: Home OTAnticipated Discharge Needs: Physical [...] mobility-other;Decreased activities of dailyliving (ADL)Interventions Provided: Evaluation;Self Correction Management (57192)$ Evaluation-Low (68958) Billed Units: 1 unitSelf Correction Management (05844) Treatment Minutes: 81 unitSkilled Intervention(s): Provided cuing [...] Milagro Craig OT/Angela PATIENT NAME: Brenda Miller MaumeeayDATE: February 15, 2018 : 10:23 AM [facility] THERAPY NT HNO ID: [id number] thor: Shannon (Pt) ThoburnService: Physical TherapyAuthor Type: Physical TherapistType: Therapy (PT/OT/Speech/Resp)Filed: 02/15/2018 9:24 AMNote Text:Physical Therapy EvaluationSERVICE DATE: 02/15/2018SERVICE TIME: 0840 to 0903ROOM: [id number] Discharge Disposition: Home PTPT Recommendations to Nursing: [...] INTERVENTIONS:Therapy Diagnosis: Reduced mobility-otherInterventions Provided: Evaluation;Gait Training (77387)$ Evaluation-High (60785) Billed Units: 1 unitGait Training (79528) Treatment Minutes: 81 unitSkilled Intervention(s): Instruction in [...] G CODE:PT 6 Clicks Score: 13 (02/15/18 4385)Mobility: Walking and Moving Around Current Status (G8978): CL (168951)Mobility: Walking and Moving Around Goal Status (G8979): CJ (423063)Based on clinical assessment and the score on [...] McclainDATE: February 15, 2018 : 9:23 AM [facility] ALLIED HEALTHon 02-14-2018 ALLIED HEALTH HNO ID: [id number] thor: Lesley Ervin (Rt)Service: RadiologyAuthor Type: TechnicianType: Allied HealthFiled: 02/14/2018 7:12 PMNote Text: Radiology Service Progress NotePATIENT NAME: Brenda McclainMRN: [id number] OF SERVICE: February 14, 2018TIME: 7:11 PMPATIENT IDENTITY VERIFICATION COMPLETED USING TWO (2) METHODS: Patientconfirmed name verbally and ID band matches..PATIENT GENDER DATA: Female. status: : NoBreastfeeding status: NO.PATIENT RELEVANT IMPLANT DATA REVIEWED: Not ApplicableRADIOLOGY DEPARTMENT: General X-ray: Exam(s) Completed: Abdomen X-RayAbdomenPERIPHERAL IV DATA: Not applicableSIGNED BY: Mike Ervin 2017 7:11 PM [facility] ANES Christianne 02-14-2018 ANES POST HNO ID: [id number] thor: Ryan Cruzervice: AnesthesiologyAuthor Type: AnesthesiologistType: Anesthesia [...] 14, 2018 : 8:36 PM PAGER/CONTACT #: [phone] [facility] ANES PREOPon 02-14-2018 ANES PREOP HNO ID: [id number] thor: John Reddingrvice: AnesthesiologyAuthor Type: AnesthesiologistType: Anesthesia PreOpFiled: 02/15/2018 7:09 AMNote Text:REGIONAL ANESTHESIOLOGY DAY OF SURGERY NOTEPATIENT NAME: Brenda McclainMRN: [id number]: 1948Procedure(s) (LRB):LAPAROSCOPIC RPR PARAESOHAGEAL HERNIA W/ FUNDOPLASTY [...] EVERY 4 HOURS ASNEEDEDInpatient medications reviewed in [facility].I have interviewed and examined the patient. [...] 2018 : 3:19 PM PAGER/CONTACT #: Normal [facility] APTTon 02-14-2018 aPTT Coag time (Bld) 21.8 s Low 23.0-32.4 [facility] Comment on above: Result Comment: Unfr actionated [...] laboratory APTT reagent in use throughout the [facility]. Performed By: #### A BINTB ####[facility] [address] [place], [place] [phone] BRIEF OP NOTon 02-14-2018 BRIEF OP NOT HNO ID: [id number] thor: Nataly Leeervice: General SurgeryAuthor Type: ResidentType: Brief Op NoteFiled: 02/14/2018 8:48 PMNote Text:BRIEF OP NOTELOG ID: [id number]/Procedure Date: 02/14/2018Incision/Procedure Start Time: 3:11 PMIncision Close/Procedure End Time: 7:58 PMSurgeon(s)/Proceduralist(s) and Human Services Assistant(s):Surgeon(s) and Role: * Monica Garsia - Primary [...] 2018 : 8:26 PM PAGER/CONTACT #: Normal [facility] Basic Metabolic Panlon 02-14 Anion gap 3 molar conc 12 mmol/L Normal -18 [facility] Comment on above: Performed By: #### A BINTB ####[place] [address] [address] [place] [phone] Calcium mass conc 8.3 mg/dL Low 8.5-10.5 [facility] Comment on above: Performed By: #### A BINTB ####[place] [address] [address] [place] [phone] Chloride molar conc 105 mmol/L Normal 98-110 [facility] Comment on above: Performed By: #### A BINTB ####[place] [address] [address] [place] [phone] CO2 molar conc 24 mmol/L Normal 23-32 [facility] Comment on above: Performed By: #### A BINTB ####[place] [address] [place] [place] [phone] Creatinine mass conc 0.73 mg/dL Normal 0.70-1.40 [facility] Comment on above: Performed By: #### A BINTB ####[place] [address] [address] [place] [phone] eGFR- Amer. >60 Normal >60 [facility] Comment on above: Performed By: #### A BINTB ####[place] [address] [place] [place] [phone] GFR/1.73 sq M predicted among non-blacks MDRD vol rate/area (S/P/Bld) mL/min/{1.73_m2} Normal >60 [facility] Comment on above: Performed By: #### A BINTB ####[place] [address] [place] [place] [phone] Glucose mass conc 176 mg/dL High 65-100 [facility] Comment on above: Performed By: #### A BINTB ####[place] [address] [place] [place] [phone] Potassium molar conc 4.0 mmol/L Normal 3.5-5.0 [facility] Comment on above: Performed By: #### A BINTB ####[place] [address] [place] [phone] Sodium molar conc 141 mmol/L Normal 132-148 [facility] Comment on above: Performed By: #### A BINTB ####[place] [address] [address] [phone] Urea nitrogen mass conc 12 mg/dL Normal 8-25 [facility] Comment on above: Performed By: #### A BINTB ####[place] [address] [address] [phone] CBC and Differentialon 02-14 Abs Baso <0.03 Normal <0.11 [facility] Comment on above: Performed By: #### A BINTB ####[place] [address] [address] [place] [phone] Abs [place] 0.58 k/uL Normal <0.87 [facility] Comment on above: Performed By: #### A BINTB ####[place] [address] [place] [place] [phone] Abs Neut 9.32 k/uL High 1.45-7.50 [facility] Comment on above: Performed By: #### A BINTB ####[place] [address] [address] [place], [place] [phone] Basophils/100 WBC Auto (Bld) 0.0 % Normal [facility] Comment on above: Performed By: #### A BINTB ####[place] [address] [address] [place] [phone] DTYPE Auto Diff Normal [facility] Comment on above: Performed By: #### A BINTB ####[place] [address] [address] [place] [phone] Eosinophils Auto #/vol (Bld) 10*3/uL Normal <0.46 [facility] Comment on above: Performed By: #### A BINTB ####[place] [address] [address] [place] [phone] Eosinophils/100 WBC Auto (Bld) 0.0 % Normal [facility] Comment on above: Performed By: #### A BINTB ####[place] [phone] Erythrocyte distribution width Auto Ratio (RBC) 16.8 % High 11.5-15.0 [facility] Comment on above: Performed By: #### A BINTB ####[place] [address] [address] [place] [phone] Hematocrit Auto Volume Fraction (Bld) 34.4 % Low 36.0-46.0 [facility] Comment on above: Performed By: #### A BINTB ####[place] [address] [place] [place] [phone] Hemoglobin mass conc (Bld) 11.2 g/dL Low 11.5-15.5 [facility] Comment on above: Performed By: #### A BINTB ####[place] [address] [address] [place] [phone] Lymphocytes Auto #/vol (Bld) 0.79 10*3/uL Low 1.00-4.00 [facility] Comment on above: Performed By: #### A BINTB ####[place] [address] [address] [place] [phone] Lymphocytes/100 WBC Auto (Bld) 7.4 % Normal [facility] Comment on above: Performed By: #### A BINTB ####[place] [address] [place] [place] [phone] MCH Auto Entitic mass (RBC) 29.0 pG Normal 26.0-34.0 [facility] Comment on above: Performed By: #### A BINTB ####[place] [address] [place] [phone] MCHC Auto mass conc (RBC) 32.6 g/dL Normal 30.5-36.0 [facility] Comment on above: Performed By: #### A BINTB ####[place] [phone] MCV Auto Entitic volume (RBC) 89.1 fL Normal 80.0-100.0 [facility] Comment on above: Performed By: #### A BINTB ####[place] [phone] Monocytes/100 WBC Auto (Bld) 5.4 % Normal [facility] Comment on above: Performed By: #### A BINTB ####[place] [phone] Neutrophils/100 WBC Auto (Bld) 87.2 % Normal [facility] Comment on above: Performed By: #### A BINTB ####[place] [phone] Platelet mean volume Auto Entitic volume (Bld) 9.3 fL Normal 9.0-12.7 [facility] Comment on above: Performed By: #### A BINTB ####[place] [address] [place] [place] [phone] Platelets Auto #/vol (Bld) 263 10*3/uL Normal 150-400 [facility] Comment on above: Performed By: #### A BINTB ####[place] [address] [address] [place] [phone] RBC Auto #/vol (Bld) 3.86 10*6/uL Low 3.90-5.20 [facility] Comment on above: Performed By: #### A BINTB ####[facility] [place], [place] [phone] WBC Auto #/vol (Bld) 10.69 10*3/uL Normal 3.70-11.00 [facility] Comment on above: Performed By: #### A BINTB ####[facility] [place], [place] [phone] Confirm Blood Typeon 018 ABO/RH(D) Positive Normal [facility] Comment on above: Performed By: #### C ONABO ####[facility] [place], [place] [phone] HISTORY PHYSICALon HISTORY PHYSICAL HNO ID: [id number] thor: Arsenio (Res) HaddadService: General SurgeryAuthor Type: [...] 77 BP: 125/80 Resp: 18 SpO2: 96 %Cynthiana Miriam Readings: Not applicableRESPIRATORYMechanical Ventilation: No. Supplemental [...] prophylaxis appropriateSIGNATURE: Arsenio Lawler MD PATIENT NAME: Brenad McclainDATE: February 14, 2018 : 8:52 PM PAGER/CONTACT #: [phone] [facility] Magnesiumon 02-14-2018 Magnesium mass conc 1.4 mg/dL Low 1.7-2.6 [facility] Comment on above: Performed By: #### A BINTB ####[facility] [place], [place] [phone] NURSING PROGon 02-14-2018 Protein mass conc HNO ID: [id number] Author: Juanita AlmarazRn) J LUIS Broussard Service: Nursing Author Type: Registered Nurse Type: Nursing Progress Note Filed: 02/14/2018 6:12 PM Note Text: converted to open procedure at 1720 [facility] OPERATIVE NOon 02-14-2018 OPERATIVE NO HNO ID: [id number] thor: Monica Estrada) AugustinService: General SurgeryAuthor Type: PhysicianType: Operative ReportFiled: 02/19/2018 3:10 PMNote Text:[facility] - Operative ReportBRENDA MCCLAIN LDOB: 8AGE: 68.SEX: FMRN: [id number] TYPE: IHOSP SVC: GENSLOCATION: [id number] PHYSICIAN: MADI Gamez NUMBER: [id number] OF SURGERY/PROCEDURE: 02/14/2018INCISION/PROCEDURE START TIME: 1511 hours.INCISION [...] laparoscopic closure of the posterior ellen. Multipleinterrupted kyijep-lx-eervv stitches using silk was used to close [...] anycomplications was noted. Next, we passed the 58-Moldovan bougie intothe stomach. A 360 degree wrap [...] be without any evidence of any burning.KORI Gamez:[id number] #: [id number]: 02/14/2018 20:43:04 [facility] PT EDon 02-14-2018 PT ED HNO ID: [id number] thor: Haven (Rn) Cristel, RNService: (none)Author Type: Registered NurseType: Patient EducationFiled: 02/14/2018 12:36 PMNote Text:PATIENT EDUCATION TOPIC: PROCEDURE / SURGERY: Pre-op Teaching:ProtocolsPATIENT NAME: Brenda McclainN: [id number] LOCATION: FV OR POOL/FV OR POOLREADINESS TO LEARNCOGNITIVE ABILITY: Alert and orientedMOTIVATION TO LEARN: EagerFAMILY SUPPORT: None - Unavailable/disinterestedINSTRU CTION PROVIDED TO: PatientPATIENT LEARNS BEST BY: Individual InstructionFACTORS AFFECTING LEARNING: NonePHYSICAL LIMITATIONS AFFECTING LEARNING: NoneLEARNING RESPONSEDIAGNOSIS: ADULT: Well AdultPATIENT/FAMILY RESPONSE: Verbalizes understanding of: IXH-BBSZWHLNJKVSOMTFEJDAD-Cgiuj ct action to take to follow pre-operative instructionsMETHOD OF INSTRUCTION: Individual instructionFOLLOW-UP PLAN: Complete - No need for follow-upPatient instructed to call with any further issuesINSTRUCTIONAL AIDS USED: NASUPPLEMENTAL MATERIAL PROVIDED TO PATIENT: NoneREFERRAL (RECOMMENDATION): NoneElectronically Signed By: Haven Fam RN [facility] Phosphoruson 02-14-2018 Phosphate mass conc 3.2 mg/dL Normal 2.5-4.5 [facility] Comment on above: Performed By: #### A BINTB ####[facility] [place], [place] [phone] Protimeon 02-14-2018 INR Coag RelTime (Bld) 1.1 {INR} Normal 0.9-1.3 [facility] Comment on above: Result Comment: Danni min K Antagonist (VKA) Therapeutic Range: INR 2 to 3 (Target INR of 2.5)Note: For patients treated with VKA drugs, such as warfarin, the [place] [employer] 2012 Guideline recommends [...] 70: 252-289 Performed By: #### A BINTB ####[facility] [address] [place], [place] [phone] PT Sec 11.3 sec Normal 9.7-13.0 [facility] Comment on above: Performed By: #### A BINTB ####[facility] [place], [place] [phone] SURGICAL PATHOLOGYon 018 SURGICAL PATHOLOGY Specimen [facility] from [facility] #: [id number] Physician: MONICA GARSIA MD FINAL DIAGNOSISSpleen, resection:- [...] chromogenicin-situ hybridization tests have been determined by [facility] [place] (RT-PLMI) patti manner consistent with CLIA requirements. [...] the spleen is dark red andslightly granular. Vocational Teacher sections are submitted in two cassettes. WE/dcr 02/15/2018 Gross examination performed at [facility], [address] [place], [place] [address]Patient ID #: [id number] of Report: 02/19/2018Date of Procedure: 02/14/2018Date of Receipt: 02/15/2018Submitted by: MONICA GARSIA MDLocation: [id number] interpretation performed at [facility], [address] [place] [address]. Normal [facility] Comment on above: Performed By: #### C ONABO ####[address] [phone] XR ABDOMEN 1V SUPINEon 02-14 XR ABDOMEN [...] HERNANDEZ MD on Feb 14 2018 7:16PM [id number] AL!! Invalid Interpretation Code [facility] NURSING PROGon 02-08-2018 Protein mass conc HNO ID: [id number] thor: Chichi (Rn) TRUDY Hoodervice: General SurgeryAuthor Type: Registered NurseType: Nursing Progress NoteFiled: 02/08/2018 11:06 AMNote Text:PACC Nurse Progress NoteHistory AND Physical:PACC Visit Date: 16-0-12Mtokiwyq HANDP Date: N/AED visit Date: N/AOutside HANDP Scanned Date: N/ALabs Within Last 6 Months:CBC: Date 01-25-18BMP/CMP: Date 01-25-18TYPE AND SCREEN: Date 37-9-44Prxudk acceptable limits, results in EPICImaging Within Last 12 Months:Chest X-ray 5-37-37Jivwtei scanned in EPIC 59-76-57Vjlrcsv Testing:EKG in last 12 Months: Yes: Date: [...] after childbirthChart Check:Beulah Crowe 2017 11:04 AM [facility] RBC Antibody Interp (Lab Ord ered)on 01-25-2018 Antibody Interp (NOTE) [facility] Comment on above: Result Comment: Anti -E and anti-K, clinically significant alloantibodies againstcorresponding Rh and Marielle blood group system antigens, respectivelyare identified.Approximately 63% of donor units will be negative for the E and Kantigens. When possible please allow a minimum of 4 hours forpretransfusion and compatibility testing. Performed By: #### A BINTB ####[address] [phone] Physician Review Signed by Cynthia og MD ([id number]) [facility] Comment on above: Performed By: #### A BINTB ####[address] [phone] Type and SCR (30D)on 018 ABO/RH(D) Positive [facility] Comment on above: Performed By: #### T SCR30 ####[address] [phone] Antibody Identified [facility] Comment on above: Result Comment: ANTI -K PRESENT.ANTI-E PRESENT. Performed By: #### T SCR30 ####[address] [phone] HOSPon 01-18-2018 HOSP Patient:Brenda Mcclain LMRN: Height:5' [...] 12:25 PM SignedCall to patient to at [phone] to reschedule surgery date.Received VM. Contact number provided for return call.New date of surgery 02/14/2018Procedure: Laparoscopic PEH repairTello Mckeon RN 02/02/2018 2:05 PM SignedReceived return call from patient.Accepted new date of surgery.Will edit [facility] paperwork to reflect new date of surgery.Progress Notes (GENS RICKREALL 108 ):Monica Garsia MD 01/21/2018 4:17 PM SignedAssessmentNEW FOREGUT PATIENTPATIENT NAME: Brenda McclainMRN: [id number] FOR CONSULT: Paraesophageal herniaREQUESTING PHYSICIAN: NAZIA TesfayeATE of SERVICE: 01/16/2018TIME of SERVICE: 6:08 PMPCP: NAVNEET Venturadcsaira Complaint: Abdominal pain, refluxHistory of present illness:Brenda [...] record and USmail.Monica Garsia, MDPrevious Version Normal [facility] Vital Signs Date Time Vital Sign Value Performing Clinician Facility 08-18-2022 [id number] Body height 161.3 cm Sanjay Adkins MD Work Phone: [facility] 08-18-2022 14:26-0400 Body temperature 97.11 [degF] Sanjay Adkins MD Work Phone: [facility] 08-18-2022 14:26-0400 Body weight 82.46 kg Sanjay Adkins MD Work Phone: [facility] 08-18-2022 14:26-0400 Diastolic blood pressure 77 mm[Hg] Sanjay Adkins MD Work Phone: [facility] 08-18-2022 14:26-0400 Heart rate 78 /min Sanjay Adkins MD Work Phone: [facility] 08-18-2022 14:26-0400 Respiratory rate 16 /min Sanjay Adkins MD Work Phone: [facility] 08-18-2022 14:26-0400 SaO2% (BldA) [Mass fraction] 100 % Sanjay Adkins MD Work Phone: [facility] 08-18-2022 14:26-0400 Systolic blood pressure 117 mm[Hg] Sanjay Adkins MD Work Phone: [facility] 08-19-2021 14:12-0400 Body height 161.3 cm Sanjay Adkins MD Work Phone: [facility] 08-19-2021 14:12-0400 Body temperature 98.6 [degF] Sanjay Adkins MD Work Phone: [facility] 08-19-2021 14:12-0400 Body weight 79.83 kg Sanjay Adkins MD Work Phone: [facility] 08-19-2021 14:12-0400 Diastolic blood pressure 83 mm[Hg] Sanjay Adkins MD Work Phone: [facility] 08-19-2021 14:12-0400 Heart rate 91 /min Sanjay Adkins MD Work Phone: [facility] 08-19-2021 14:12-0400 Respiratory rate 16 /min Sanjay Adkins MD Work Phone: [facility] 08-19-2021 14:12-0400 SaO2% (BldA) [Mass fraction] 96 % Sanjay Adkins MD Work Phone: [facility] 08-19-2021 14:12-0400 Systolic blood pressure 133 mm[Hg] Sanjay Adkins MD Work Phone: [facility] 07-29-2021 08:45-0400 Blood Pressure Location Guan SALAM [facility] 07-29-2021 08:45-0400 Diastolic blood pressure 98 mm[Hg] Guan SALAM [facility] 07-29-2021 08:45-0400 Heart rate 66 /min Guan SALAM [facility] 07-29-2021 08:45-0400 Respiratory rate 23 /min Guan SALAM [facility] 07-29-2021 08:45-0400 SaO2% (BldA) [Mass fraction] 96 % Guan SALAM [facility] 07-29-2021 08:45-0400 Systolic blood pressure 146 mm[Hg] Guan SALAM [facility] 07-29-2021 08:35-0400 Blood Pressure Location Guan SALAM [facility] 07-29-2021 08:35-0400 Diastolic blood pressure 97 mm[Hg] Guan SALAM [facility] 07-29-2021 08:35-0400 Heart rate 71 /min Guan SALAM [facility] 07-29-2021 08:35-0400 Respiratory rate 14 /min Guan SALAM [facility] 07-29-2021 08:35-0400 SaO2% (BldA) [Mass fraction] 97 % Guan SALAM [facility] 07-29-2021 08:35-0400 Systolic blood pressure 147 mm[Hg] Guan SALAM [facility] 07-29-2021 08:30-0400 Blood Pressure Location Guan SALAM [facility] 07-29-2021 08:30-0400 Diastolic blood pressure 105 mm[Hg] Guan SALAM [facility] 07-29-2021 08:30-0400 Heart rate 67 /min Guan SALAM [facility] 07-29-2021 08:30-0400 Respiratory rate 14 /min Guan SALAM [facility] 07-29-2021 08:30-0400 SaO2% (BldA) [Mass fraction] 96 % Guan SALAM [facility] 07-29-2021 08:30-0400 Systolic blood pressure 140 mm[Hg] Guan SALAM [facility] 07-29-2021 08:20-0400 Body temperature 98.06 [degF] Guan SALAM [facility] 07-29-2021 08:14-0400 Respiratory rate 18 /min Guan SALAM [facility] 07-29-2021 08:00-0400 Respiratory rate 1 /min Guan SALAM [facility] 07-29-2021 07:50-0400 Respiratory rate 6 /min Guan SALAM [facility] 07-29-2021 07:12-0400 Body temperature 97.7 [degF] Guan SALAM [facility] 06-09-2021 10:29-0400 Diastolic blood pressure 91 mm[Hg] Guan SALAM [facility] 06-09-2021 10:29-0400 Heart rate 76 /min Guan SALAM [facility] 06-09-2021 10:29-0400 Systolic blood pressure 148 mm[Hg] Guan SALAM [facility] Encounters Encounter Date Encounter Type Care Provider Facility Start: 01-16-2023 End: 01-16-2023 ambulatory PAM VILLALOBOS Not Available Start: 2023 End: 2023 Emergency department patient visit [place] [facility] Start: 08-24-2022 End: 08-25-2022 ambulatory Kamron Villalobos [facility] Start: 08-24-2022 End: 08-24-2022 Patient encounter procedure Kamron Villalobos [facility] Start: 08-18-2022 End: 08-18-2022 ambulatory PAM VILLALOBOS Facility:[facility] Start: 08-18-2022 End: 08-18-2022 ambulatory Sanjay Adkins MD Work Phone: Hematology/Oncology Comment on above: 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); History of iron deficiency Start: 08-18-2022 End: 08-18-2022 Patient encounter procedure Sanjay Adkins MD Work Phone: [facility] Start: 05-18-2022 End: 05-19-2022 ambulatory SELF REFERRAL Facility[facility] Start: 05-18-2022 End: 05-18-2022 Patient encounter procedure SELF REFERRAL [facility] Start: 12-17-2021 End: 12-17-2021 Patient encounter procedure Pam Villalobos [facility] Start: 08-26-2021 Telephone encounter Tello Mak RN [...] End: 08-18-2021 Patient encounter procedure JOHANNE LINDSAY [facility] Start: 07-29-2021 End: 07-29-2021 Patient encounter procedure Roge OWEN [facility] Start: 06-09-2021 End: 06-09-2021 Patient encounter procedure Roge OWEN [facility] Start: 02-15-2021 End: 05-18-2021 Patient encounter procedure Pam Dannie Villalobos [facility] Start: 02-14-2018 End: 02-17-2018 Evaluation and management of inpatient MONICA () JONELLE [facility] Procedures Date Procedure Procedure Detail Performing Clinician [...] Comment on above: Performed By: #### [id number] ####[id number] [place], [place] [phone] Colonoscopy Pam Villalobos Elbow region structu re (body structure) Pam Villalobos Esophageal hiatus hernia repair Pam Villalobos Esophagogastroduodenoscopy P eter Wilfredo Hemorrhoids (disorder) Pam Villalobos Hysterectomy Pam Villalobos knee scope Pam Villalobos Operation on spleen Pam west Plan of Treatment Date Care Activity Detail Author Start: 08-18-2025 DIABETES SCREEN DIABETES SCREEN [facility] Start: 08-19-2024 DIABETES SCREEN DIABETES SCREEN [facility] Start: 08-19-2023 BP CONTROLLED (<130/80) BP CONTROLLE D (<130/80) [facility] Start: 04-16-2023 MENINGOCOCCAL CONJUG ATE (3 - Risk 2-dose series) MENINGOCOCCAL CONJUGATE (3 - Risk 2-dose series) [facility] Start: 08-18-2022 End: 10-18-2022 MONOCLONAL PROTEIN, SERUM (BLOOD) [facility] Work Phone: Comment on above: Expected: 08/18/2022 , Expires: 10/18/2022 Start: 08-18-2022 End: 10-18-2022 PROT ELECT SERUM WITH DARÍO AND INTERP [facility] Work Phone: Comment on above: Expected: 08/18/2022 , Expires: 10/18/2022 Start: 02-20-2022 ADVANCE DIRECTIVE DISCUSSION ADVANCE DIRECTIVE DISCUSSION [facility] Start: 02-20-2022 DEPRESSION ASSESSMENT DEPRESSION ASS ESSMENT [facility] Start: 10-21-2021 Influenza vaccination INFLUENZA (#1) [facility] Start: 08-19-2021 End: 10-19-2021 Ferritin [Mass/volume] in Serum or Plasma [facility] Work Phone: Comment on above: Expected: 08/19/2021 , Expires: 10/19/2021 Start: 08-19-2021 End: 10-19-2021 Iron and Iron binding capacity panel - Serum or Plasma [facility] Work Phone: Comment on above: Expected: 08/19/2021 , Expires: 10/19/2021 Start: 03-30-2021 COVID-19 VACCINE (4 - Booster for Pfizer series) COVID-19 VACCINE (4 - Booster for Pfizer series) [facility] Start: 02-20-2021 ADVANCE DIRECTIVE DISCUSSION ADVANCE DIRECTIVE DISCUSSION [facility] Start: 08-15-2020 Adult depression screening assessment DEPRESSION SCREENING [facility] Start: 04-16-2019 PNEUMOCOCCAL: 65+ (3 - PCV) PNEUMOCOCCAL: 65+ (3 - PCV) [facility] Start: 07-31-2013 SHINGRIX VACCINE (1 of 2) SHINGRIX VACCINE (1 of 2) [facility] Start: 01-07-2013 BONE DENSITY BONE DENSITY [facility] Start: 01-07-1993 COLOGUARD (FIT-DNA) COLOGUARD (FIT-D NA) [facility] Start: 01-07-1993 Colonoscopy COLONOSCOPY [facility] Start: 01-07-1993 COLORECTAL CANCER SCREENING COLORECTAL CANCER SCREENING [facility] Start: 01-07-[address] COLONOGRAPHY [facility] Start: 01-07-1993 FECAL OCCULT BLOOD FECAL OCCULT BLOO D [facility] Start: 01-07-1993 LIPID SCREEN LIPID SCREEN [facility] Start: 01-07-1993 SIGMOIDOSCOPY SIGMOIDOSCOPY [facility] Start: 1988 Mammography MAMMOGRAM [facility] Start: 01-07-1967 Urine microalbumin profile DTAP,TDAP,TD (1 - Tdap) [facility] Start: 01-07-1966 ANNUAL PCP TEAM X RAY DEVELOPER JAS DISEASE VISIT ANNUAL PCP TEAM CHRONIC DISEASE VISIT [facility] Start: 01-07-1966 BP CONTROLLED (<130/80) BP CONTROLLE D (<130/80) [facility] Start: 01-07-1966 HEPATITIS C SCREENING HEPATITIS C SC REENING [facility] Start: 01-07-1958 MENINGOCOCCAL B: Consider based on risk (1 of 4 - Increased Risk Bexsero 2-dose series) MENINGOCOCCAL B: Consider based on risk (1 of 4 - Increased Risk Bexsero 2-dose series) [facility] Immunizations Immunization Date Immunization Notes [facility] Provider [facility] 04-16-2020 COVID-19 vaccine, ag e 12+ yr (PFIZER-BIONTECH - PURPLE TOP) Sanjay Adkins MD Work Phone: [facility] 03-27-2020 COVID-19 vaccine, ag e 12+ yr (PFIZER-BIONTECH - PURPLE TOP) Sanjay Adkins MD Work Phone: [facility] 04-16-2018 meningococcal polysaccharide (groups A, C, Y and W-135) diphtheria toxoid conjugate vaccine (MCV4P) Sanjay Adkins MD Work Phone: [facility] 04-16-2018 pneumococcal polysaccharide vaccine, 23 valent Sanjay Adkins MD Work Phone: [facility] 02-17-2018 haemophilus influenz ae type b vaccine, PRP-T conjugate Sanjay Adkins MD Work Phone: [facility] 02-17-2018 influenza, high dose seasonal, preservative-free Sanjay Adkins MD Work Phone: [facility] 02-17-2018 meningococcal polysaccharide (groups A, C, Y and W-135) diphtheria toxoid conjugate vaccine (MCV4P) Sanjay Adkins MD Work Phone: [facility] 02-17-2018 pneumococcal polysaccharide vaccine, 23 valent Sanjay Adkins MD Work Phone: [facility] 06-05-2013 zoster vaccine, live Sanjay gibson MD Work Phone: [facility] 02-18-2009 novel influenza-H1N1 -09, preservative-free, injectable Sanjay Adkins MD Work Phone: [facility] Payers Date Payer Category Payer Medicare [id number] 2018 Unknown [employer] D[employer] SUPPLEMENT [id number] 2018-Present [phone] [address] [place] [address] Indemnity [id number] 2018 Unknown [employer] D[employer] SUPPLEMENT [id number] 2018-Present [phone] [address] [place] [address] Indemnity [id number] 2012 Medicare MEDICARE MEDICAR E A AND B [id number] 2012-Present [phone] [address] [address] [place] [address] Medicare [id number] 2012 Medicare MEDICARE MEDICAR E A AND B [id number] 2012-Present [phone] [place] [address] Medicare [id number] 2012 Medicare [id number] 1950 Unknown [id number] 1950 Unknown [id number] 1950 Unknown [id number] 1950 Unknown [id number] Social History Date Type Detail Facility Start: 01-07-2020 End: 06-09-2021 Tobacco smoking status Never smoked tobacco (finding) [facility] Sex Assigned At Female [facility] Start: 08-19-2021 End: 08-18-2022 Alcohol intake Current drinker of alcohol (finding) [facility] Start: 01-25-2018 History SDOH Alcohol Comment one drink at the holidays at times [facility] Start: 1950 Sex Assigned At Female [facility] Start: 08-09-2021 End: 08-19-2021 Exposure to SARS-CoV-2 (event) Not sure [facility] Start: 08-18-2022 Tobacco use and exposure Smokeless tobacco non-user [facility] NEGATED: Highlighted rowStart: NINF History of tobacco use Passive smoker [facility] Medical Equipment Procedure Code Equipment Code Equipment Origin al Text Equipment Identifier Dates [id number] FDA Start: 09-02-2019 {[id number] FDA Start: 09-30-2019 {[id number] [id number] FDA Start: 10-29-2019 M[employer] Synth etic 10x7cm Surgical Reinforcement Hernia Repair - [id number] Start: 02-14-2018 Clinical Notes 07-29-2021 to 08-18-2022 Sanjay Adkins MD - 08/18/2022 7:57 AM EDTTelephone Encounter - Tello Mak RN - 08/26/2021 3:32 PM EDTTelephone Encounter - Tello Mak RN - 08/26/2021 3:30 PM EDT Note Date & Type Note Facility 08-18-2022 Note HNO ID: [id number] Author: Sanjay Adkins MD Service: ? Author [...] 1. Iron def (more content not included)... [facility] 08-18-2022 History of Presen t illness Narrative [...] ulcers. The patient subsequently underwent surgery at [facility] (Dr. Garsia) on 02/14/2018. Her surgery [...] Sanjay Adkins MD documented in this encounter [facility] 08-26-2021 Miscellaneous Notes Call placed to [...] scheduled. Thanks, BRM documented in this encounter [facility] 08-20-2021 Miscellaneous Notes Informed pt of [...] scheduled. Thanks, ALFONSO documented in this encounter [facility] 08-19-2021 Nurse Note Patient states that she is very tired. Deisy Andujar MA documented in this encounter [facility] 08-19-2021 History of Presen t illness [...] ulcers. The patient subsequently underwent surgery at [facility] (Dr. Garsia) on 02/14/2018. Her surgery [...] CC: Dr. Giordano documented in this encounter [facility] 07-29-2021 Evaluation + Plan note Extrac rashawn from: Title:ANES POSTOP MAC/GEN NOTE Author:Fernando Chaparro JR Date:07/29/21 Plan Transfer/ Discharge: Patient can be discharged from PACU when criteria met. Condition good. Extracted from: Title:ANES PREOP ENDO NOTE Author:Miladys Huizar JR, DO Date:07/29/21 Plan [place] [employer] (ASA) physical status classification: Class II. Anesthetic Preoperative Plan Anesthesia: Monitored anesthesia care and general anesthesia if required.. Anesthetic plan, risks, benefits, and alternatives discussed with the patient and/or family. Pt. and/or family present and agree to proceed as planned.. Discussed the importance of abstaining from tobacco products, and offered counseling if desired.. [facility]06-09-2022 Hospital Discharge instructions Patient Education 07/29/2021 08:24:23 [...] including vitamins, herbs, eye drops, creams, and caxg-lwm-cxgjwsi medicines. Any problems you or family members [...] home. Follow these instructions at home: Take cuvb-ukx-szgtwze and prescription medicines only as told by [...] 03/30/2006 Document Revised: 01/19/2018 Document Reviewed: 12/12/2017 [employer] Patient Education 2020 DNA13. 07/29/2021 08:24:23 Endoscopy, Care After Procedure [facility] Endoscopy Care After Procedure Please read the instructions outlined below and refer to this sheet in the next few weeks. These discharge instructions provide you with general information on caring for yourself [facility]. Your doctor may also give you [...] Document Re-Released: 07/31/2006 ExitCare Patient Information 2009 Charge Payment. Follow Up Care 06/09/2021 11:21:23 With:Roge OWEN Address: [address] [place] [address] Business (1) When:1 to 2 weeks Comments:Call for any problems. [facility] Future App[facility]ments Appointment Date:06/09/2021 10:00:00 AM Scheduled Provider:Roge OWEN MD [facility] App[facility] Type:[facility] Future Appointments Appointment Date:07/29/2021 08:00:00 AM Scheduled Provider: Location:[facility] Appointment Type:Surgery [facility] Evaluation note* Diagnosis Iron deficiency anemia due to chronic blood loss- Primary Iron deficiency anemia secondary to blood loss (chronic) Paraesophageal hernia Diaphragmatic hernia without mention of obstruction or gangrene Monoclonal gammopathy of undetermined significance Monoclonal paraproteinemia [facility] Diagnosis Monoclonal gammopathy of undetermined significance- Primary Monoclonal paraproteinemia History of iron deficiency Personal history of diseases of blood and blood-forming organs documented in this encounter [facility] course Narrative No data available for this section [facility] No data available for this section [facility] No data available for this section [facility] Summary Purpose Family History No Family History Records FoundNo Family History Records FoundNo Family History Records FoundNo Family History Records FoundNo Family History Records Found Advance Directives No Advanced Directives Records FoundDocuments on File Type Date Recorded 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 Advance Directive(s) Advance Directive(s) 02/14/2018 11:56 AM Hospital Course Note HNO ID: [id number]: Leif anders (Res) MontelioneService: General SurgeryAuthor Type: ResidentType: Discharge SummariesFiled: 02/18/2018 8:30 AMNote Text:DISCHARGE SUMMARYPATIENT NAME: Brenda Mcclain ADMISSION DATE: 02/14/2018MRN: [id number] DISCHARGE DATE: 02/17/2018Attending: Monica Barros for Hospitalization: [...] section and content) DATE CREATED AUTHOR 02/19/2018 [facility] DATE CREATED AUTHOR AUTHOR'S ORGANIZ ATION 04/14/2021 [facility] dical Specialist DATE CREATED AUTHOR AUTHOR'S ORGANIZ ATION 08/23/2022 [facility] DATE CREATED AUTHOR AUTHOR'S ORGANIZ ATION 01/09/2023 [facility] DATE CREATED AUTHOR AUTHOR'S ORGANIZ ATION 01/17/2023 [facility] dical Specialists EPIC Care Team (unrecognized sect ion and content) Final Touch Up Painter Relationship Specialty Start Date End Date Pam Villalobos PCP - General 12/07/07 Tello Mckeon (Rn), RN [id number] [place] [address] Specialty Labor Custodian General Surgery 01/24/18 Final Touch Up Painter Relationship Specialty Start Date End Date Pam Villalobos PCP - General 12/07/07 Tello Mckeon (Rn), RN [phone] [place] [address] Specialty Labor Custodian General Surgery 01/24/18 Final Touch Up Painter Relationship Specialty Start Date End Date Pam Villalobos PCP - General 12/07/07 Tello Mckeon (Rn), RN [phone] [place] [address] Specialty Labor Custodian General Surgery 01/24/18 Source Comments (unrecognize d section and content) In the event this informatio n is protected by the Federal Confidentiality of Alcohol and Drug Abuse Patient Records regulations: The Federal rules restrict any use of the information to criminally investigate or prosecute any alcohol or drug abuse patient.[facility] the event this information is protected by the Federal Confidentiality of Alcohol and Drug Abuse Patient Records regulations: The Federal rules restrict any use of the information to criminally investigate or prosecute any alcohol or drug abuse patient.[facility] the event this information is protected by the Federal Confidentiality of Alcohol and Drug Abuse Patient Records regulations: The Federal rules restrict any use of the information to criminally investigate or prosecute any alcohol or drug abuse patient.[facility] Hospital[facility] the event this information is protected by the Federal Confidentiality of Alcohol and Drug Abuse Patient Records regulations: The Federal rules restrict any use of the information to criminally investigate or prosecute any alcohol or drug abuse patient.[facility] Reason for Visit (unrecogniz ed section [...] BE BASED ON THE PRIMARY CLINICAL RECORDS. [facility] [employer] [facility]. provides no warranty or guarantee of the accuracy or completeness of information in this document.
== END 2023-02-27 12:58 | disposition home or self-care (01) ==
LOC: VC 13:01
PROVIDERS: PCP Radiology Diagnostic Radiology; Visit Provider Radiology Diagnostic Radiology
DX: I80.02 Phlebitis and thrombophlebitis of superficial vessels of left lower extremity (principal)
CPT/HCPCS: 93971; G0463

== ENCOUNTER 2023-03-09 09:15 | Outpatient (OUT) | payer MEDICARE, BC, SELFPAY ==
--- NOTE | 2023-03-09 09:16 | VEIN_ITS ---
[address] [address] Patient Name: KEELEY CADE MRN: [id number] date: 1950 Sex: F Assigned Patient Location: Current Patient Location: Accession/Order Number: [id number] Exam Date: 03/09/2023 09:26 Report Date: 03/09/2023 10:04 At the request of: DI LIU Procedure: VC INJ Sclerosing SOLMULT Vein EXAMINATION: VC INJ Sclerosing SOLMULT Vein HISTORY: Pain due to varicose veins of bilateral legs I83.813 COMPARISON: No relevant comparison available. TECHNIQUE: The risks and benefits of the procedure were explained at length to the patient and informed written consent was obtained. Nathen Lawton was present and assisted. The procedure was performed under sterile technique. The patient's leg was wrapped with Coban and postprocedural verbal and written instructions provided. SCLEROSANT: 4 cc, 0.5% polidocanol VEIN(S) INJECTED: 24 veins in the left leg VISUALIZATION: Ultrasound was not used to visualize the sclerosant ANESTHESIA: Supercooled air COMPLICATIONS: None VEIN/VC INJ Sclerosing SOLMULT Vein IMPRESSION: Technically successful sclerotherapy as described Electronically authenticated by: DI LIU Date: 03/09/2023 10:04
--- OUTSIDE RECORDS SUMMARY | 2023-03-09 09:28 | XMS_ITS | CCD ---
Author Name Unknown Address [address] [place] [address] Organization [facility] Care Team Providers Care Roll Scale Worker Name Role Phone MONICA GARSIA () Unavailable Unavailable MONICA GARSIA) Unavailable Unavailable Pam Villalobos Primary Care Physician [phone] Yohana Rodarte Unavailable Unavailable Blanca Stratton Unavailable Unavailable Pam Villalobos Primary Care Provider Linda DIETZ, Andra Ulrich (Rn) Unavailable Unavailab Pam eRddy Primary Care Provider Linda DIETZ, Andra Ulrich (Rn) Unavailable Unavailab le REFERRAL, SELF Attending Unavailable REFERRAL, SELF Referring [...] Moon Attending Unavailable PAM VILLALOBOS Attending Unavailable PAM VILLALOBOS Primary Care UnavailSANJAY Harris Referring Unavailable SANJAY ADKINS Attending Unavailable PAM VILLALOBOS Primary Care UnavailSANJAY Harris Referring Unavailable Allergies Allergy Classification Reported Allergen(s) Allergy Type Date of Onset Reaction(s) Facility (6 sources) Adhesive Tape; Translations: [ADHESIVE TAPE (ROSINS)] Propensity to adverse reactions (disorder) 8 Rash [facility] Other [facility] Repository (6 sources) Cefuroxime; Translations: [CEFUROXIME AXETIL] Drug Allergy 8 GI Upset [facility] Repository (6 sources) Clindamycin; Translations: [CLINDAMYCIN HCL] Drug Allergy 8 Intolerance [facility] Repository (8 sources) Adhesive Tape; Translations: [Adhesive tape] Allergy to substance [facility] Medications Current Medications Medication Drug Class(es) Dates Sig (Normalized) Sig (Original) acetaminophen 500 mg oral tablet (7 sources) Start: 11-16-2017 take 500 mg by mouth every six hours as needed for pain Tylenol 500 mg, Oral, q6hr, PRN as needed for pain, Refills(s) 0 Start Date: 11/16/17 Status: Ordered [id number] 200 actuat albuterol 0.09 mg/actuat metered dose [...] BIDPC, # 60 tab(s), Refills(s) 0, Pharmacy: [facility], 161.5, cm, 10/09/19 6:34:00 EDT, Height/Length Dosing, 80.1, kg, 10/11/19 12:14:00 EDT, Weight Dosing Start Date: 10/29/19 Status: Ordered Start: 10-29-2019 Ecotrin 325 mg Tab-EC 325 mg = 1 tab(s), Oral, BIDPC, # 60 tab(s), Refills(s) 0, Pharmacy: [facility], 161.5, cm, 10/09/19 6:34:00 EDT, Height/Length [...] 11/17/17 Status: Ordered take [address] [facility] every six hours as needed diphenhydrAMINE (BENADRYL) [...] constipation, # 40 cap(s), Refills(s) 0, Pharmacy: [facility], 161.5, cm, 10/09/19 6:34:00 EDT, Height/Length [...] day(s), # 90 cap(s), Refills(s) 1, Pharmacy: [facility], 161, cm, 07/29/21 7:13:00 EDT, Height/Length Dosing, 84, kg, 07/29/21 7:13:00 EDT, Weight Dosing Start Date: 09/23/21 Stop Date: 03/22/22 Status: Ordered Start: 06-09-2021 [address] [facility] once daily omeprazole 40 mg Cap-DR 40 mg = 1 cap(s), Oral, Daily, # 30 cap(s), Refills(s) 2, Pharmacy: [facility], 161, cm, 06/09/21 10:32:00 EDT, Height/Length Dosing, 84, kg, 06/09/21 10:32:00 EDT, Weight Dosing Start Date: 06/09/21 Status: Ordered Comment on above: Take 40 mg by mouth once daily. omeprazole 40 mg Cap-DR (2 sources) Start: take 1 capsule by mouth once daily omeprazole 40 mg Cap-DR 40 mg = 1 cap(s), Oral, Daily, # 30 cap(s), Refills(s) 2, Pharmacy: [facility], 161, cm, 06/09/21 10:32:00 EDT, Height/Length Dosing, 84, kg, 06/09/21 10:32:00 EDT, Weight Dosing Start Date: 06/09/21 Status: Ordered ondansetron 4 mg oral tablet (7 sources) Serotonin-3 Receptor Antagonist Start: take 4 mg by mouth twice daily as needed for nausea Zofran 4 mg, Oral, BID, PRN as needed for nausea/vomiting, Refills(s) 0 Start Date: 12/09/19 Status: Ordered polyethylene glycol 3350 26111 mg powder for oral solution (6 sources) [...] pain Dx: M17.12, Z96.642 Duration: 7 days, [facility], 161.5, cm, 10/09/19 6:34:00 EDT, Height/Length Dosing, 80.1, kg, 10/11/19 12... Start Date: 10/29/19 Status: Ordered Start: 10-29-2019 Percocet 325 m g-5 mg Tab See Instructions, as needed for pain, 40 tab(s), Refill(s) 0, 1-2 orally every 4-6hrs as needed for pain Dx: M17.12, Z96.642 Duration: 7 days, [facility], 161.5, cm, 10/09/19 6:34:00 EDT, [...] Test Name Value Interpretation Reference Range Facility [facility] 03-06-2023 CNPN Telephone (HEMASA) LESTERBRENDA VALLE ([id number]) 1950 F Date Time Provider Department 03/06/23 MAAY GUIDRY During your visit today, we recorded the following information about you: Maya Guidry RN 03/06/2023 11:42 AM Signed Pt has had ongoing generalized rash for quite some time. It began in hot spots (axilla, groin, under belly). She has seen PCP, Dermatology and ER several times with no relief. They have attempted triamcinolone cream, anti-fungals, oral prednisone, allergy shots to no avail. She is wondering if it has something to do with my autoimmune disorder. 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 Neither of these conditions should be associated with rash. Maya Guidry RN 03/06/2023 12:34 PM Signed Pt aware of BRM response. She will contact Dermatology again for follow up. Maya Guidry RN Allergies As of Date: 03/06/2023 Noted Allergy Reaction ADHESIVE TAPE (ROSINS) 03/21/2017 2 - Rash CEFUROXIME AXETIL 03/21/2017 8 - GI Upset CLINDAMYCIN HCL 03/21/2017 5 - Intolerance Date Reviewed: 08/18/2022 Reviewed by: Deisy Andujar MA - Fully Assessed Reason for Visit: generalized rash [Other] Prescriptions as of 03/06/2023 - irbesartan (AVAPRO) 150 mg tablet - [...] as needed. 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 Performed By: #### 1 [id number], 3727407, 3132770, 5790947 #### [facility] Laboratory [address] [place] [address] Basophils/Leukocy maury Auto (Bld) [Pure # fraction] 0.0 E9/L Normal 0.0-0.2 [facility] Comment on above: Order Comment: Order Added by Discern Expert. Performed By: #### 1 [id number], 9746352, 2311653, 8331204 #### [facility] Laboratory [address] [place] [address] Eosinophils/100 WBC (Bld) 5.9 % Normal 0.0-8.0 [facility] Comment on above: Order Comment: Order Added by Discern Expert. Performed By: #### 1 7362075, 5613256, 6371466, 9561666 #### [facility] [address] [place] [address] Eosinophils/Leuko cytes Auto (Bld) [Pure # fraction] 0.4 E9/L Normal 0.0-0.5 [facility] Comment on above: Order Comment: Order Added by Discern Expert. Performed By: #### 1 8817630, 4128970, 9521866, 4638419 #### [facility] [address] [place] [address] Lymphocytes/100 WBC (Bld) 30.4 % Normal 14.0-50.0 [facility] Comment on above: Order Comment: Order Added by Discern Expert. Performed By: #### 1 9256025, 9409139, 7208226, 1778467 #### [facility] [address] [place] [address] Lymphocytes/Leuko cytes Auto (Bld) [Pure # fraction] 2.0 E9/L Normal 1.0-4.0 [facility] Comment on above: Order Comment: Order Added by Discern Expert. Performed By: #### 1 2480847, 0629496, 3142711, 9098092 #### [facility] [address] [place] [address] Monocytes/100 WBC (Bld) 11.1 % Normal 4.0-14.0 [facility] Comment on above: Order Comment: Order Added by Discern Expert. Performed By: #### 1 5368454, 1743686, 3095152, 7084230 #### [facility] [address] [place] [address] Monocytes/Leukocy maury Auto (Bld) [Pure # fraction] 0.7 E9/L Normal 0.2-1.0 [facility] Comment on above: Order Comment: Order Added by Discern Expert. Performed By: #### 1 9409507, 4319783, 7211612, 1584044 #### [facility] [address] [place] [address] Neutrophils/100 WBC (Bld) 52.2 % Normal 36.0-75.0 [facility] Comment on above: Order Comment: Order Added by Discern Expert. Performed By: #### 1 6784273, 5637635, 3840574, 6086125 #### [facility] [address] [place] [address] Neutrophils/Leuko cytes Auto (Bld) [Pure # fraction] 3.5 E9/L Normal 2.0-7.5 [facility] Comment on above: Order Comment: Order Added by Discern Expert. Performed By: #### 1 3889191, 4667044, 8775210, 6862789 #### [facility] [address] [place] [address] CBC w/ Auto Diffon Erythrocyte distribution width (RBC) [Ratio] 13.0 % Normal 10.9-14.2 [facility] Comment on above: Performed By: #### 1 9754176, 6500241, 2188546, 5248121 #### [facility] [address] [place] [address] Hematocrit (Bld) [Volume fraction] 42.3 % Normal 34.0-46.0 [facility] Comment on above: Performed By: #### 1 2817599, 9338109, 5526342, 1326592 #### [facility] [address] [place] [address] Hemoglobin (Bld) [Mass/Vol] 14.3 g/dL Normal 12.0-16.0 [facility] Comment on above: Performed By: #### 1 4773553, 2389583, 1924734, 0949855 #### [facility] [address] [place] [address] MCH (RBC) [Entitic mass] 31.7 pg Normal 27.0-34.0 [facility] Comment on above: Performed By: #### 1 1294376, 2123223, 1411802, 0138036 #### [facility] [address] [place] [address]75 MCHC (RBC) [Mass/Vol] 33.8 g/dL Normal 31.4-36.0 [facility] Comment on above: Performed By: #### 1 5574101, 3917671, 0696541, 3040852 #### [facility] [address] [place] [address]68 MCV (RBC) [Entitic vol] 93.7 fL Normal 80.0-100.0 [facility] Comment on above: Performed By: #### 1 0935176, 1027953, 2527623, 6539297 #### [facility] [address] [place] [address] Platelet mean volume (Bld) [Entitic vol] 8.2 fL Normal 6.4-10.8 [facility] Comment on above: Performed By: #### 1 6174600, 9429170, 7181492, 6990829 #### [facility] [address] [place] [address] Platelets (Bld) [#/Vol] 407.0 E9/L Normal 150.0-500.0 [facility] Comment on above: Performed By: #### 1 3342116, 9814566, 3844767, 6181468 #### [facility] [address] [place] [address]8775 RBC (Bld) [#/Vol] 4.5 E12/L Normal 4.3-5.9 [facility] Comment on above: Performed By: #### 1 8062565, 2260098, 6666066, 3474766 #### [facility] [address] [place] [address] WBC corrected for nucl RBC Auto (Bld) [#/Vol] 6.6 E9/L Normal 4.0-11.0 [facility] Comment on above: Performed By: #### 1 8833873, 3909421, 3420675, 0139188 #### [facility] [address] [place] [address] CMPon 2023 Albumin [Mass/Vol] 3.7 g/dL Normal 3.3-5.0 [facility] Comment on above: Performed By: #### 1 1959958, 6905428, 3257583, 9759325 #### [facility] [address] [place] [address]951 Albumin/Globulin (S) [Mass conc ratio] 0.9 Low 1.1-2.2 [facility] Comment on above: Performed By: #### 1 9706483, 4248005, 0121798, 8823675 #### [facility] [address] [place] [address] ALP [Catalytic activity/Vol] 108 Int._Unit/L High 21-98 [facility] Comment on above: Performed By: #### 1 8450437, 0919980, 0571901, 5998777 #### [facility] [address] [place] [address] ALT No additional P-5'-P [Catalytic activity/Vol] 18 Int._Unit/L Normal 6-46 [facility] Comment on above: Performed By: #### 1 3954163, 4336856, 2907007, 8203658 #### [facility] [address] [place] [address] AST [Catalytic activity/Vol] 20 Int._Unit/L Normal 5-43 [facility] Comment on above: Performed By: #### 1 0567426, 6807499, 8458972, 5172054 #### [facility] [address] [place] [address] Bilirubin [Mass/Vol] 0.7 mg/dL Normal 0.0-1.1 [facility] Comment on above: Performed By: #### 1 8044727, 5908815, 8795719, 9523093 #### [facility] [address] [place] [address] Creatinine [Mass/Vol] 1.0 mg/dL Normal 0.5-1.3 [facility] Comment on above: Performed By: #### 1 0659875, 6397261, 5100977, 0203291 #### [facility] [address] [place] [address] Globulin (S) [Mass/Vol] 4.1 g/dL High 1.4-4.0 [facility] Comment on above: Performed By: #### 1 6054727, 9560390, 1553819, 1634722 #### [facility] [address] [place] [address] Protein [Mass/Vol] 7.8 g/dL Normal 6.0-7.8 [facility] Comment on above: Performed By: #### 1 4522346, 0404400, 9181322, 3965590 #### [facility] [address] [place] [address] Urea nitrogen [Mass/Vol] 14 mg/dL Normal 5-21 [facility] Comment on above: Performed By: #### 1 7479790, 3882749, 4454344, 6914536 #### [facility] [address] [place] [address] Urea nitrogen/Creatini ne [Mass ratio] 14 No Units Normal 10-20 [facility] Comment on above: Performed By: #### 1 2313874, 1379969, 2123841, 5056307 #### [facility] [address] [place] [address] Anion gap [Moles/Vol] 12 mmol/L Normal 6-16 [facility] Comment on above: Performed By: #### 1 5726222, 1464036, 6947923, 0680483 #### [facility] [address] [place] [address] Calcium [Mass/Vol] 9.7 mg/dL Normal 8.9-11.1 [facility] Comment on above: Performed By: #### 1 0891740, 2480806, 5013922, 1335250 #### [facility] [address] [place] [address] Chloride [Moles/Vol] 106 mmol/L Normal 101-111 [facility] Comment on above: Performed By: #### 1 3012988, 7920393, 3060384, 8906885 #### [facility] [address] [place] [address] CO2 [Moles/Vol] 27 mmol/L Normal 21-31 [facility] Comment on above: Performed By: #### 1 5100708, 6433814, 4836258, 1024466 #### [facility] [address] [place] [address] Glucose [Mass/Vol] 95 mg/dL Normal 55-199 [facility] Comment on above: Result Comment: If t his glucose result represents a fasting glucose, interpretation should refer to the following reference range: 55-99 mg/dL Performed By: #### 1 4390461, 7052849, 2609038, 3078085 #### [facility] [address] [place] [address] Potassium [Moles/Vol] 3.9 mmol/L Normal 3.5-5.3 [facility] Comment on above: Performed By: #### 1 6116463, 4419528, 9128871, 7335547 #### [facility] [address] [place] [address] Sodium [Moles/Vol] 141 mmol/L Normal 135-145 [facility] Comment on above: Performed By: #### 1 4877837, 5781527, 5218226, 5480944 #### [facility] [address] [place] [address] Consent for Treatmenton 12-21 Consent for Treatment [id number] Normal [facility] Discharge Instructionson Discharge Instructions [id number] Normal [facility] ED Clinical Summaryon 2022 ED Clinical Summary [place] [id number] ED Clinical Summary Person Information Name: BRENDA MCCLAIN [facility] Age: 73 Years : 1950 Sex: Female Language: Yoruba PCP: Pam Villalobos MD Marital Status: Phone: [phone] Visit Id: Visit Reason: Rash; Headache - [...] 2023 14:40:42 2023 14:40:42 2023 14:40:42 ADDRESS: [address] [place] [id number] PHYS DOC NOTES: MEDICAL INFORMATION: Prescriptions Given: New Medications [facility], [address] [place], [place] [id number], [phone] ketoconazole topical (ketoconazole Top 2% Crm) 1 [...] Follow up: With: Address: When: Pam Villalobos [place] [address] Business (1) In 3 days [...] ED visit. (more content not included)... Normal [facility] ED Note-Physicianon 01-09-20 ED Note-Physician Basic Information Time Seen: Red HARMON Gray TamayoEspinoza 2023 13:21 Chief Complaint patient c/o migraine [...] gm, Refill(s) 0, apply to fungal infection, [facility], 157.5, cm, 01/08/23 12:28:00 EST, Height/Length [...] IV diphenhydrAMINE (more content not included)... Normal [facility] Comment on above: Result Comment: Elec tronically [...] conditioner or fan, if available. ? Apply lxcn-olm-rgswacz and prescription medicines only as told by [...] well after activity or exercise. Use a unhairing inspector on a cool setting to dry between [...] your skin and with medicines. ? Apply ojpw-afi-rcrlddl and prescription medicines only as told by your health care provider. ? Keep all follow-up visits as told by your health care provider. This is important. This information is not intended to replace advice given to you by your health care provider. Make sure you discuss any questions you have with your health care provider. Document Revised: 11/22/2021 Document Reviewed: 11/22/2021 [employer] Patient Education ? 2022 [employer] Neurology Migraine Headache A migraine headache [...] inflammation c (more content not included)... Normal [facility] ED Patient Summaryon 023 ED Patient Summary [address] [address] Patient Discharge Instructions Person Information Name: BRENDA MCCLAIN Age: 73 Years Arrival Date: 2023 12:14:08 Discharge Diagnosis: Candidal intertrigo; Classic migraine; Id reaction Primary Care Physician: Pam Villalobos MD Provider Information Primary Provider: Gray Moon DO Advanced Election Assistant:Nya The exam and treatment you received in the Emergency Department were for an urgent problem and are not intended as complete care. It is important that you follow up with a doctor, nurse practitioner, or physician?s hearing aid assistant for ongoing care. If your symptoms [...] Follow-up Instructions: With: Address: When: Pam Villalobos [address] [place] [address] Business (1) In 3 days 01/11/2023 [...] opioids can be used to help relieve mepimlpx-ed-xjosak pain and are often prescribed following a [...] included)... Normal [facility] eGFRon 2023 GFR/1.73 sq M.predicted among non-blacks MDRD (S/P/Bld) [Vol rate/Area] 59 mL/min/1.73 m2 Normal >=59 [facility] Comment on above: Order Comment: Order added by Discern Expert. Result Comment: Behavioral Health Clinician jas kidney disease could be indicated at eGFR's of less than 60 mL/min/1.73m2. Kidney failure is indicated at less than 15 mL/min/1.73m2. Performed By: #### 1 [id number], 8285347, 8936971, 6524749 #### [facility] Laboratory [address] [place] [address] BUNon 08-24-2022 Urea nitrogen [Mass/Vol] 23 mg/dL High 5- [facility] Comment on above: Performed By: #### 1 4337251, 8260206, 4387482, 4981020 #### [facility] [address] [place] [address] CHEMISTRYOrdered By: SYSTEM SYSTEM on 08-24-2022 Albumin [...] 24 [iU]/d Normal 5 - 43 Int._Unit/L [facility] Remisol Bilirubin [Mass/Vol] 0.6 mg/dL Normal 0.0 - 1.1 mg/dL [facility] Remisol Bilirubin.direct [Mass/Vol] mg/dL Normal 0.1 - 0.4 mg/dL [facility] Remisol Bilirubin.indirec t [Mass or moles/Vol] Unable to Calculate mg/dL Invalid Interpretation Code 0.1 - 0.9 mg/dL [facility] Remisol Creatinine [Mass/Vol] 1.0 mg/dL Normal 0.5 - 1.3 mg/dL [facility] Remisol GFR/1.73 sq M.predicted among non-blacks MDRD (S/P/Bld) [Vol rate/Area] 59 mL/min/1.73 m2 Normal >=59mL/min/ 1.73 m2 [facility] Chem S Globulin (S) [Mass/Vol] 3.6 g/dL Normal 1.4 - 4.0 gm/dL [facility] Remisol Protein [Mass/Vol] 7.6 g/dL Normal 6.0 - 7.8 gm/dL [facility] Remisol Urea nitrogen [Mass/Vol] 23 mg/dL High 5 - 21 mg/dL [facility] Remisol Consent for Treatmenton Consent for Treatment [id number] Normal [facility] Creatinineon 08-24-2022 Creatinine [Mass/Vol] 1.0 mg/dL Normal 0.5-1.3 [facility] Comment on above: Performed By: #### 1 4583431, 9929452, 9867452, 5740216 #### [facility] [address] [place] [address] Hep Func Panelon 08-24-2022 Bilirubin.indirec t [Mass or moles/Vol] UTC Abnormal 0.1-0.9 [facility] Comment on above: Result Comment: Resu lt verified by Discern Rule. Performed result UTC (Unable to Calculate) was sent as an Alpha code due the inability to calculate a valid numeric value. Performed By: #### 1 9625224, 9367378, 3025912, 4933544 #### [facility] [address] [place] [address] Albumin [Mass/Vol] 4.0 g/dL Normal 3.3-5.0 [facility] Comment on above: Performed By: #### 1 4626409, 3631020, 8073586, 1821496 #### [facility] [address] [place] [address] Albumin/Globulin (S) [Mass conc ratio] 1.1 Normal 1.1-2.2 [facility] Comment on above: Performed By: #### 1 4562845, 0587611, 8632889, 2931093 #### [facility] [address] [place] [address] ALP [Catalytic activity/Vol] 93 Int._Unit/L Normal 21-98 [facility] Comment on above: Performed By: #### 1 0389975, 2206729, 9456278, 9055665 #### [facility] [address] [place] [address] ALT No additional P-5'-P [Catalytic activity/Vol] 19 Int._Unit/L Normal 6-46 [facility] Comment on above: Performed By: #### 1 2567706, 2902447, 3991401, 4269313 #### [facility] [address] [place] [address] AST [Catalytic activity/Vol] 24 Int._Unit/L Normal 5-43 [facility] Comment on above: Performed By: #### 1 [id number], 6731478, 9078194, 1632139 #### [facility] [address] [place] [address] Bilirubin [Mass/Vol] 0.6 mg/dL Normal 0.0-1.1 [facility] Comment on above: Performed By: #### 1 [id number], 7420314, 5264760, 7781694 #### [facility] [address] [place] [address] Globulin (S) [Mass/Vol] 3.6 g/dL Normal 1.4-4.0 [facility] Comment on above: Performed By: #### 1 [id number], 3527036, 2407003, 9935150 #### [facility] [address] [place] [address] Protein [Mass/Vol] 7.6 g/dL Normal 6.0-7.8 [facility] Comment on above: Performed By: #### 1 2832293, 2859328, 4019971, 9294844 #### [facility] [address] [place] [address] Bilirubin.direct [Mass/Vol] mg/dL Normal 0.1-0.4 [facility] Comment on above: Performed By: #### 1 2763710, 2028725, 1036501, 1713187 #### [facility] [address] [place] [address] Physician Orderon 08-24-2022 Physician Order [id number] Normal [facility] eGFRon 08-24-2022 GFR/1.73 sq M.predicted among non-blacks MDRD (S/P/Bld) [Vol rate/Area] 59 mL/min/1.73 m2 Normal >=59 [facility] Comment on above: Order Comment: Order Added by Discern Expert. Result Comment: Behavioral Health Clinician jas kidney disease could be indicated at eGFR's of less than 60 mL/min/1.73m2. Kidney failure is indicated at less than 15 mL/min/1.73m2. Performed By: #### 1 [id number], 7723688, 4826285, 8144139 #### [facility] [address] [place] [address] CNPTrish 08-22-2022 CNPN Telephone (HEMTSA) BRENDA MCCLAIN ([id number]) 1950 F Date Time Provider Department 08/22/22 [...] 08/22/2022 1:17 PM Signed VM left with [facility] message. Encouraged pt to call with any [...] MAYA GUIDRY on 08/22/22 Normal [facility] FERRITIN BLDon 08-19-2022 Ferritin [Mass/Vol] 108.0 ng/mL 14.7 - 205.1 ng/mL [facility] Iron and Iron binding capaci ty panelon 08-19-2022 Iron [Mass/Vol] 143 ug/dL 41 - 186 ug/dL [facility] Iron binding capacity [Mass/Vol] 336 ug/dL 232 - 386 ug/dL [facility] Iron/TIBC [Molar ratio] 42.6 % 15.0 - 57.0 % [facility] Basic metabolic 2000 panelon 08-18-2022 Anion gap [Moles/Vol] 9 mmol/L Normal 9-18 [facility] Comment on above: Order Comment: Speci men Type: BLOOD SPECIMEN Ordering Facility: [facility] Address: [address] [id number] Performed By: #### 2 4321-2 #### [facility] CLIA [id number] [address] [place] [address] Calcium [Mass/Vol] 9.9 mg/dL Normal 8.5-10.2 [facility] Comment on above: Order Comment: Speci men Type: BLOOD SPECIMEN Ordering Facility: [facility] Address: [address] [id number] Performed By: #### 2 4321-2 #### [facility] CLIA [id number] [address] [place] [address] Chloride [Moles/Vol] 102 mmol/L Normal 97-105 [facility] Comment on above: Order Comment: Speci men Type: BLOOD SPECIMEN Ordering Facility: [facility] Address: [address] [address] Performed By: #### 2 4321-2 #### [facility] CLIA [id number] [address] [place] [address] CO2 [Moles/Vol] 29 mmol/L Normal 22-30 [facility] Comment on above: Order Comment: Speci men Type: BLOOD SPECIMEN Ordering Facility: [facility] Address: [address] [place] [address] Performed By: #### 2 4321-2 #### [facility] CLIA [id number] [address] [place] [address] Creatinine [Mass/Vol] 1.05 mg/dL High 0.58-0.96 [facility] Comment on above: Order Comment: Speci men Type: BLOOD SPECIMEN Ordering Facility: [facility] Address: [address] [place] [address] Performed By: #### 2 4321-2 #### [facility] CLIA [id number] [address] [place] [address] ESTIMATED GLOMERULAR FILTRATION RATE 56 mL/min/1.73m??? Low >=60 [facility] Comment on above: Order Comment: Speci men Type: BLOOD SPECIMEN Ordering Facility: [facility] Address: [address] [place] [address] Result Comment: Elsy mated Glomerular Filtration Rate [...] GFR. Performed By: #### 2 4321-2 #### [facility] CLIA [id number] [address] [place] [address] Glucose [Mass/Vol] 70 mg/dL Low 74-99 [facility] Comment on above: Order Comment: Speci men Type: BLOOD SPECIMEN Ordering Facility: [facility] Address: [address] [address] Result Comment: The [place] [employer] (ADA) provides guidance for cutoff [...] Standards of Medical Care in Diabetes 2016, [place] [employer]. Diabetes Care. 2016.39(Suppl 1). Performed By: #### 2 4321-2 #### [facility] CLIA [id number] [address] [place] [address] Potassium [Moles/Vol] 3.7 mmol/L Normal 3.7-5.1 [facility] Comment on above: Order Comment: Speci men Type: BLOOD SPECIMEN Ordering Facility: [facility] Address: [address] [address] Performed By: #### 2 4321-2 #### [facility] CLIA [id number] [address] [place] [address] Sodium [Moles/Vol] 140 mmol/L Normal 136-144 [facility] Comment on above: Order Comment: Speci men Type: BLOOD SPECIMEN Ordering Facility: [facility] Address: [address] [address] Performed By: #### 2 4321-2 #### [facility] CLIA [id number] [address] [place] [address] Urea nitrogen [Mass/Vol] 21 mg/dL Normal 7-21 [facility] Comment on above: Order Comment: Speci men Type: BLOOD SPECIMEN Ordering Facility: [facility] Address: [address] [address] Performed By: #### 2 4321-2 #### [facility] CLIA [id number] [address] [place] [address] Anion gap [Moles/Vol] 9 mmol/L 9 - 18 mmol/L [facility] Calcium [Mass/Vol] 9.9 mg/dL 8.5 - 10.2 mg/dL [facility] Chloride [Moles/Vol] 102 mmol/L 97 - 105 mmol/L [facility] CO2 [Moles/Vol] 29 mmol/L 22 - 30 mmol/L [facility] Creatinine [Mass/Vol] 1.05 mg/dL High 0.58 - 0.96 mg/dL [facility] Estimated Glomerular Filtration Rate 56 mL/min/1.73m Low >=60 mL/min/1.73 m [facility] Glucose [Mass/Vol] 70 mg/dL Low 74 - 99 mg/dL [facility] Potassium [Moles/Vol] 3.7 mmol/L 3.7 - 5.1 mmol/L [facility] Sodium [Moles/Vol] 140 mmol/L 136 - 144 mmol/L [facility] Urea nitrogen [Mass/Vol] 21 mg/dL 7 - 21 mg/dL [facility] CBC W Auto Differential pane l (Bld)on 08-18-2022 Basophils (Bld) [#/Vol] 0.04 10*3/uL Normal <0.11 [facility] Comment on above: Order Comment: Speci men Type: BLOOD SPECIMEN Ordering Facility: [facility] Address: [address] [place] [address] Performed By: #### 5 7021-8 #### [facility] CLIA [id number] [address] [place] [address] Basophils/100 WBC (Bld) 0.6 % Normal [facility] Comment on above: Order Comment: Speci men Type: BLOOD SPECIMEN Ordering Facility: [facility] Address: [address] [address] Performed By: #### 5 7021-8 #### [facility] CLIA [id number] [address] [place] [address] Differential cell count method Nom (Bld) Auto Normal [facility] Comment on above: Order Comment: Speci men Type: BLOOD SPECIMEN Ordering Facility: [facility] Address: [address] [address] Performed By: #### 5 7021-8 #### [facility] CLIA [id number] [address] [place] [address] Eosinophils (Bld) [#/Vol] 0.21 10*3/uL Normal <0.46 [facility] Comment on above: Order Comment: Speci men Type: BLOOD SPECIMEN Ordering Facility: [facility] Address: [address] [address] Performed By: #### 5 7021-8 #### [facility] CLIA [id number] [address] [place] [address] Eosinophils/100 WBC (Bld) 3.3 % Normal [facility] Comment on above: Order Comment: Speci men Type: BLOOD SPECIMEN Ordering Facility: [facility] Address: [address] [address] Performed By: #### 5 7021-8 #### [facility] CLIA [id number] [address] [place] [address] Erythrocyte distribution width (RBC) [Ratio] 13.3 % Normal 11.5-15.0 [facility] Comment on above: Order Comment: Speci men Type: BLOOD SPECIMEN Ordering Facility: [facility] Address: [address] [address] Performed By: #### 5 7021-8 #### [facility] CLIA [id number] [address] [place] [address] Hematocrit (Bld) [Volume fraction] 41.1 % Normal 36.0-46.0 [facility] Comment on above: Order Comment: Speci men Type: BLOOD SPECIMEN Ordering Facility: [facility] Address: [address] [address] Performed By: #### 5 7021-8 #### [facility] CLIA [id number] [address] [place] [address]83 Hemoglobin (Bld) [Mass/Vol] 13.8 g/dL Normal 11.5-15.5 [facility] Comment on above: Order Comment: Speci men Type: BLOOD SPECIMEN Ordering Facility: [facility] Address: [address] [address] Performed By: #### 5 7021-8 #### [facility] CLIA [id number] [address] [place] [address] Immature granulocytes (Bld) [#/Vol] 0.03 10*3/uL Normal <0.10 [facility] Comment on above: Order Comment: Speci men Type: BLOOD SPECIMEN Ordering Facility: [facility] Address: [address] [address] Performed By: #### 5 7021-8 #### [facility] CLIA [id number] [address] [place] [address] 51095 Immature granulocytes/100 WBC (Bld) 0.5 % Normal [facility] Comment on above: Order Comment: Speci men Type: BLOOD SPECIMEN Ordering Facility: [facility] Address: [address] [address] Performed By: #### 5 7021-8 #### [facility] CLIA [id number] [address] [place] [address] Lymphocytes (Bld) [#/Vol] 1.99 10*3/uL Normal 1.00-4.00 [facility] Comment on above: Order Comment: Speci men Type: BLOOD SPECIMEN Ordering Facility: [facility] Address: [address] Performed By: #### 5 7021-8 #### [facility] CLIA [id number] [address] [place] [address] Lymphocytes/100 WBC (Bld) 31.4 % Normal [facility] Comment on above: Order Comment: Speci men Type: BLOOD SPECIMEN Ordering Facility: [facility] Address: [address] [address] Performed By: #### 5 7021-8 #### [facility] CLIA [id number] [address] [place] [address] 33292 MCH (RBC) [Entitic mass] 31.7 pg Normal 26.0-34.0 [facility] Comment on above: Order Comment: Speci men Type: BLOOD SPECIMEN Ordering Facility: [facility] Address: [address] [place] [address] Performed By: #### 5 7021-8 #### [facility] CLIA [id number] [address] [place] [address]693 MCHC (RBC) [Mass/Vol] 33.6 g/dL Normal 30.5-36.0 [facility] Comment on above: Order Comment: Speci men Type: BLOOD SPECIMEN Ordering Facility: [facility] Address: [address] [place] [address] Performed By: #### 5 7021-8 #### [facility] CLIA [id number] [address] [place] [address] 78646 MCV (RBC) [Entitic vol] 94.3 fL Normal 80.0-100.0 [facility] Comment on above: Order Comment: Speci men Type: BLOOD SPECIMEN Ordering Facility: [facility] Address: [address] [place] [address] Performed By: #### 5 7021-8 #### [facility] CLIA [id number] [address] [place] [address]8072 Monocytes (Bld) [#/Vol] 0.76 10*3/uL Normal <0.87 [facility] Comment on above: Order Comment: Speci men Type: BLOOD SPECIMEN Ordering Facility: [facility] Address: [address] [place] [address] Performed By: #### 5 7021-8 #### [facility] CLIA [id number] [address] [place] [address]853 Monocytes/100 WBC (Bld) 12.0 % Normal [facility] Comment on above: Order Comment: Speci men Type: BLOOD SPECIMEN Ordering Facility: [facility] Address: [address] [address] Performed By: #### 5 7021-8 #### [facility] CLIA [id number] [address] [place] [address]1487 Neutrophils (Bld) [#/Vol] 3.30 10*3/uL Normal 1.45-7.50 [facility] Comment on above: Order Comment: Speci men Type: BLOOD SPECIMEN Ordering Facility: [facility] Address: [address] [address] Performed By: #### 5 7021-8 #### [facility] CLIA [id number] [address] [place] [address] Neutrophils/100 WBC (Bld) 52.2 % Normal [facility] Comment on above: Order Comment: Speci men Type: BLOOD SPECIMEN Ordering Facility: [facility] Address: [address] [address] Performed By: #### 5 7021-8 #### [facility] CLIA [id number] [address] [place] [address]99 Nucleated RBC (Bld) [#/Vol] 10*3/uL Normal <0.01 [facility] Comment on above: Order Comment: Speci men Type: BLOOD SPECIMEN Ordering Facility: [facility] Address: [address] [address] Performed By: #### 5 7021-8 #### [facility] CLIA [id number] [address] [place] [address]2662 Nucleated RBC/100 WBC (Bld) [Ratio] 0.0 /100 WBC Normal [facility] Comment on above: Order Comment: Speci men Type: BLOOD SPECIMEN Ordering Facility: [facility] Address: [address] [address] Performed By: #### 5 7021-8 #### [facility] CLIA [id number] [address] [place] [address] 18883 Platelet mean volume (Bld) [Entitic vol] 9.5 fL Normal 9.0-12.7 [facility] Comment on above: Order Comment: Speci men Type: BLOOD SPECIMEN Ordering Facility: [facility] Address: [address] [place] [address] Performed By: #### 5 7021-8 #### [facility] CLIA [id number] [address] [place] [address] 59898 Platelets (Bld) [#/Vol] 404 10*3/uL High 150-400 [facility] Comment on above: Order Comment: Speci men Type: BLOOD SPECIMEN Ordering Facility: [facility] Address: [address] [place] [address] Performed By: #### 5 7021-8 #### [facility] CLIA [id number] [address] [place] [address] 36875 RBC (Bld) [#/Vol] 4.36 10*6/uL Normal 3.90-5.20 [facility] Comment on above: Order Comment: Speci men Type: BLOOD SPECIMEN Ordering Facility: [facility] Address: [address] [place] [address] Performed By: #### 5 7021-8 #### [facility] CLIA [id number] [address] [place] [address]234 WBC (Bld) [#/Vol] 6.33 10*3/uL Normal 3.70-11.00 [facility] Comment on above: Order Comment: Speci men Type: BLOOD SPECIMEN Ordering Facility: [facility] Address: [address] [place] [address] Performed By: #### 5 7021-8 #### [facility] CLIA [id number] [address] [place] [address]82 Basophils (Bld) [#/Vol] 0.04 10*3/uL <0.11 k/uL [facility] Basophils/100 WBC (Bld) 0.6 % [facility] Differential cell count method Nom (Bld) Auto [facility] Eosinophils (Bld) [#/Vol] 0.21 10*3/uL <0.46 k/uL [facility] Eosinophils/100 WBC (Bld) 3.3 % [facility] Erythrocyte distribution width (RBC) [Ratio] 13.3 % 11.5 - 15.0 % [facility] Hematocrit (Bld) [Volume fraction] 41.1 % 36.0 - 46.0 % [facility] Hemoglobin (Bld) [Mass/Vol] 13.8 g/dL 11.5 - 15.5 g/dL [facility] Immature granulocytes (Bld) [#/Vol] 0.03 10*3/uL <0.10 k/uL [facility] Immature granulocytes/100 WBC (Bld) 0.5 % [facility] Lymphocytes (Bld) [#/Vol] 1.99 10*3/uL 1.00 - 4.00 k/uL [facility] Lymphocytes/100 WBC (Bld) 31.4 % [facility] MCH (RBC) [Entitic mass] 31.7 pg 26.0 - 34.0 pg [facility] MCHC (RBC) [Mass/Vol] 33.6 g/dL 30.5 - 36.0 g/dL [facility] MCV (RBC) [Entitic vol] 94.3 fL 80.0 - 100.0 fL [facility] Monocytes (Bld) [#/Vol] 0.76 10*3/uL <0.87 k/uL [facility] Monocytes/100 WBC (Bld) 12.0 % [facility] Neutrophils (Bld) [#/Vol] 3.30 10*3/uL 1.45 - 7.50 k/uL [facility] Neutrophils/100 WBC (Bld) 52.2 % [facility] Nucleated RBC (Bld) [#/Vol] <0.01 k/uL [facility] Nucleated RBC/100 WBC (Bld) [Ratio] 0.0 /100 WBC [facility] Platelet mean volume (Bld) [Entitic vol] 9.5 fL 9.0 - 12.7 fL [facility] Platelets (Bld) [#/Vol] 404 10*3/uL High 150 - 400 k/uL [facility] RBC (Bld) [#/Vol] 4.36 10*6/uL 3.90 - 5.2 0 m/uL [facility] WBC (Bld) [#/Vol] 6.33 10*3/uL 3.70 - 11.00 k/uL [facility] CNOVSPon 08-18-2022 CNOVSP Visit (SP) Office (H EMASA) BRENDA MCCLAIN ([id number]) 1950 F Date Time Provider Department 08/18/22 [...] (more content not included)... Normal [facility] Ferritin SerPl-ncon 2022 Ferritin [Mass/Vol] 108.0 ng/mL Normal 14.7-205.1 [facility] Comment on above: Order Comment: Ajay nath Type: BLOOD SPECIMEN Ordering Facility: [facility] Address: [address] [place], [place] [address] Performed By: #### 5 0190-8, 2885-2, 2276-4 #### [facility] CLIA [id number] [address] [facility] [place] [address] [place] IMMUNOFIXATION SCREEN, SERUM on 08-18-2022 INTERPRETATION (MPA) Atypical restricted bands are present in the IgG and lambda regions. Consistent with IgG lambda monoclonal gammopathy. Normal [facility] Comment on above: Order Comment: Ajay nath Type: BLOOD SPECIMEN Ordering Facility: [facility] Address: [address] [id number] Performed By: #### 5 0190-8, 2885-2, 6-4 #### [facility] CLIA [id number] [address] [place] [address] MPA RESULT M protein is present. Abnormal No M protein is identified. [facility] Comment on above: Order Comment: Speci men Type: BLOOD SPECIMEN Ordering Facility: [facility] Address: [address] Performed By: #### 5 0190-8, 2885-2, 6-4 #### [facility] CLIA [id number] [address] [place] [address] OF [facility] STAFF REVIEW (MPA) Reviewed by Zaira Fishman MD [facility] Comment on above: Order Comment: Speci men Type: BLOOD SPECIMEN Ordering Facility: [facility] Address: [address] Performed By: #### 5 0190-8, 2885-2, 2275-4 #### [facility] CLIA [id number] [address] [place] [address] [place] IMMUNOGLOBULINS GAMon 2022 IgA [Mass/Vol] 335 mg/dL Normal 70-400 [facility] Comment on above: Order Comment: Speci men Type: BLOOD SPECIMEN Ordering Facility: [facility] Address: [address] Performed By: #### S ERIMM #### [facility] CLIA [id number] [address] [place] [address] [place] IgG [Mass/Vol] 1369 mg/dL Normal 700-1600 [facility] Comment on above: Order Comment: Speci men Type: BLOOD SPECIMEN Ordering Facility: [facility] Address: [address] Performed By: #### S ERIMM #### [facility] CLIA [id number] [address] [place] [address] [place] IgM [Mass/Vol] 151 mg/dL Normal 40-230 [facility] Comment on above: Order Comment: Speci men Type: BLOOD SPECIMEN Ordering Facility: [facility] Address: [address] [place] [address] Performed By: #### S ERIMM #### [facility] CLIA [id number] [address] [place] [address] [place] Iron and Iron binding capaci ty panelon 08-18-2022 Iron [Mass/Vol] 143 ug/dL Normal 41-186 [facility] Comment on above: Order Comment: Speci men Type: BLOOD SPECIMEN Ordering Facility: [facility] Address: [address] [place] [address] Performed By: #### 5 0190-8, 2885-2, 6-4 #### [facility] CLIA [id number] [address] [place] [address] [place] Iron binding capacity [Mass/Vol] 336 ug/dL Normal 232-386 [facility] Comment on above: Order Comment: Speci men Type: BLOOD SPECIMEN Ordering Facility: [facility] Address: [address] [place], [place] [address] Performed By: #### 5 0190-8, 2885-2, 6-4 #### [facility] CLIA [id number] [address] [place] [address] [place] Iron/TIBC [Molar ratio] 42.6 % Normal 15.0-57.0 [facility] Comment on above: Order Comment: Speci men Type: BLOOD SPECIMEN Ordering Facility: [facility] Address: [address] [place], [place] [address] Performed By: #### 5 0190-8, 2885-2, 2276-4 #### [facility] CLIA [id number] [address] [place], [place] [address] [place] KAPPA/GOMEZ,FREE,SERon 2022 Immunoglobulin light chains.kappa.free (S) [Mass/Vol] 32.1 mg/L High 3.3-19.4 [facility] Comment on above: Order Comment: Ajay nath Type: BLOOD SPECIMEN Ordering Facility: [facility] Address: [address] [place] [address] Result Comment: Rare ly, increased serum free light chains levels may not be detected or accurately quantified due to prozone phenomenon or in high viscosity samples using this immunoturbidimetric assay. Correlation with other laboratory results and clinical findings is recommended. The [place] Free Light Chain was performed using the Binding Site Optilite immunoturbidimetric method. Result obtained with different assay methods or kits cannot be used interchangeably. Performed By: #### 5 0190-8, 2885-2, 2276-4 #### [facility] CLIA [id number] [address] [place] [address] Immunoglobulin light chains.kappa/Immu noglobulin light chains.lambda (S) [Mass ratio] 1.10 Normal 0.26-1.65 [facility] Comment on above: Order Comment: Ajay nath Type: BLOOD SPECIMEN Ordering Facility: [facility] Address: [address] [place] [address] Performed By: #### 5 0190-8, 2885-2, 2276-4 #### [facility] CLIA [id number] [address] [place] [address] [place] Immunoglobulin light chains.lambda.kurt e [Mass/Vol] 29.2 mg/L High 5.7-26.3 [facility] Comment on above: Order Comment: Ajay nath Type: BLOOD SPECIMEN Ordering Facility: [facility] Address: [address] [place] [address] Result Comment: Rare ly, increased serum free [...] cannot be used interchangeably. Performed By: #### 5 0190-8, 2884-2, 2275-05 #### [facility] CLIA [id number] [address] [place] [address] [place] PROTEIN ELECTROPHORESIS SERU M WITH DARÍO (P)on 08-18-2022 Albumin [Mass/Vol] 4.20 g/dL Normal 3.43-5.41 [facility] Comment on above: Order Comment: Speci men Type: BLOOD SPECIMEN Ordering Facility: [facility] Address: [address] [place] [address] Performed By: #### 5 0190-8, 2884-03, 2275-05 #### [facility] CLIA [id number] [address] [place] [address] [place] Alpha 1 globulin Elph [Mass/Vol] 0.29 g/dL Normal 0.18-0.43 [facility] Comment on above: Order Comment: Speci men Type: BLOOD SPECIMEN Ordering Facility: [facility] Address: [address] [place] [address] Performed By: #### 5 0190-8, 2884-03, 2275-05 #### [facility] CLIA [id number] [address] [place] [address] [place] Alpha 2 globulin Elph [Mass/Vol] 0.60 g/dL Normal 0.42-0.98 [facility] Comment on above: Order Comment: Speci men Type: BLOOD SPECIMEN Ordering Facility: [facility] Address: [address] [place], [place] [id number] Performed By: #### 5 0190-8, 2884-03, 2275-05 #### [facility] CLIA [id number] [address] [place] [address] [place] Beta globulin Elph [Mass/Vol] 1.01 g/dL Normal 0.61-1.17 [facility] Comment on above: Order Comment: Speci men Type: BLOOD SPECIMEN Ordering Facility: [facility] Address: [address] [place] [address] Performed By: #### 5 0190-8, 2885-2, 2275-4 #### [facility] CLIA [id number] [address] [place] [address] [place] COMMENT (SERUM PROT ELECTRO) Monoclonal Protein analysis (immunofixation) is not indicated. Normal [facility] Comment on above: Order Comment: Speci men Type: BLOOD SPECIMEN Ordering Facility: [facility] Address: [address] [place] [address] Performed By: #### 5 0190-8, 2884-2, 2275-05 #### [facility] CLIA [id number] [address] [place] [address] [place] Gamma globulin Elph [Mass/Vol] 1.30 g/dL Normal 0.53-1.51 [facility] Comment on above: Order Comment: Speci men Type: BLOOD SPECIMEN Ordering Facility: [facility] Address: [address] [place] [address] Performed By: #### 5 0190-8, 2884-2, 2275-05 #### [facility] CLIA [id number] [address] [place] [address] [place] INTERPRETATION COMMENT FOR PROTEIN ELECTROPHORESIS Normal [facility] Comment on above: Order Comment: Speci men Type: BLOOD SPECIMEN Ordering Facility: [facility] Address: [address] [place] [address] Result Comment: See separate immunofixation report for characterization of monoclonal gammopathy. M protein is present on the background of a polyclonal immunoglobulin population. Quantitation of the M protein may overestimate the amount of M protein present. Performed By: #### 5 0190-8, 2885-2, 2275-4 #### [facility] CLIA [id number] [address] [place] M-PROTEIN LOCATION Gamma Fraction 1 Normal [facility] Comment on above: Order Comment: Speci men Type: BLOOD SPECIMEN Ordering Facility: [facility] Address: [address] [place] [address] Performed By: #### 5 0190-8, 2885-2, 6-4 #### [facility] CLIA [id number] [id number] [place] [address] [place] Protein Fractions [Interp] An M protein is identified on protein electrophoresis. Abnormal No definitive M protein is identified on protein electrophor esis. [facility] Comment on above: Order Comment: Speci men Type: BLOOD SPECIMEN Ordering Facility: [facility] Address: [address] [place] [address] Performed By: #### 5 0190-8, 2885-2, 2275-4 #### [facility] CLIA [id number] [address] [place] [address] [place] Protein.monoclona l Elph [Mass/Vol] 0.42 g/dL High <=0.00 [facility] Comment on above: Order Comment: Speci men Type: BLOOD SPECIMEN Ordering Facility: [facility] Address: [address] [place], [place] [address] Performed By: #### 5 0190-8, 2885-2, 2275-4 #### [facility] CLIA [id number] [address] [place] [address] [place] SPE STAFF REVIEW Reviewed by Zaira Fishman MD [facility] Comment on above: Order Comment: Speci men Type: BLOOD SPECIMEN Ordering Facility: [facility] Address: [address] [place], [place] [address] Performed By: #### 5 0190-8, 2885-2, 6-4 #### [facility] CLIA [id number] [address] [place] [address] [place] Prot SerPl-mCncon 08-18-2022 Protein [Mass/Vol] 7.4 g/dL Normal 6.3-8.0 [facility] Comment on above: Order Comment: Speci men Type: BLOOD SPECIMEN Ordering Facility: [facility] Address: [address] [place] [phone] Performed By: #### 5 0190-8, 2885-2, 2276-4 #### [facility] CLIA [id number] [address] [facility] [address] [address] [facility] [place] Coding Summary.on 05-26-2022 Coding Summary. CD:[id number] Ww+PGhlYWQ+ FO7VTUJuW33otERsvZ5yE3HNJRjLRvi fDMIDIZzKMoBpgeDeDL7ilJVlFSBl IC8+DR8qQRQuPeyunODqy7F9hHZ8A60 wbh2wBCpvxAS9IHEfApMivavse0uaoI h9ZZkeUtuvXjDc OMGivI32SKW1lV87Rr44mZBjwQEkx5d iwCy4CdIcAQPcRWR9bKhkFYfjs9FcLU XsY49akCFgy0N5 IDUleDymoCPeYxGzaVB9fL0vSZqxddk as9vtkdhqAfz5jb56cKAzz6D9bHZ8V3 BzuaV4XBLmfNJr SdwnbPUZbD9slhqsk1tidqkjPkLyEIV nCBh9QOv0INYsnZcgFlGgGR42KRY5HC CwjfOhC6SyVBJp lCaxJhW3m5W3Ix0JT3PREmouQ5UGYRX SWTwvdGQ+AB04kx60Q3RkCtxeGmj4HC DgMET0oLX5xZ1i IJHgVUwoh6P4cRY4S5YkisJjdf7yy9c wVCStYRouP01hzOXgl0X7GJHgwFU4FC WyuEepCbTqvX26 Oyc+LOMnvElnc8TjMbzto8vzi1fmsQs 4IzrqJZPxxsVdeJkjPPM8t0AyKq6zTJ JndLC1oUW0jN3p RsNaYvK0YBbwL366RbNasFIfPdfkG93 vO4CjmDW+BUBvDcx0HFZlaLcoFN0rY8 BhZGRpbmctbGVm nNsaKC9uHGUivuiwNOMwkK2mHPGeZ6c 6LoLpWzS1QJckZ8KaRQKdansvCu08zY 0uXmVsTbM0OBid K0ThzsH4XAAqbYUdMKmcLVJ0Q14dv6Z 4TXTaLMXaYSF0gZP2lF1lvCrwisvplC VmdDsgdmVydGlj PSybCHuoE804QFUywGuuFvEpLVxnSgN EYXRlOiAgMDQvMDYvMjAyMzwvdGQ+PH HpGTC4mRrrYENn kYHvKPlfXa7vdNabtMyrEE7kVPEexpn zSJZsnP4cAVKwwVWkuAztQO5fCIHkra gsh706YuIeGVS8 RWGhwFJuQ9JqlI2zVjQzHYVpHYEoV9B uxSHaJUzqN750FSqmXpX7WCTlbaVnL4 FsLWFsaWduOiB0 b4A2Fp7Sg8BoncgqE3FopVQnBvTcIui sJMs4Q0UfIlphkCH+LQ33ZXSdCA09KU x0FIN4jHfcBZrf HCStI3RevO6jKtZdYXHvYPGeIcl+PHR hYmxlIHdpZHRoPScxMDAlJyBzdHlsZT 7wRj2pYJZuORHi yKmpuKJqInMln2tkYOTkYPnjEW6rtUq bV8UtwTO6NUYnp8l3Rq17F67sX5EjnG A+GJZzwEY6oEA0 sM0zZaNgGcR8HGzvY357TlSalUOkCvq ae8qls0cxrSy2ThA2XQMdrsYjlSdlZH O6d3WlFi87D75r UReuRPOpLOIrZUPxCFKleXqgdv2paO8 wIi8+PWAxeIA7nXG0mM3cIkNnIuL7EM kvY691XpOwfJFb Lydnq3nhv9lgvPz3IjLpPXBlzhXweHa eSUD2k4PmYg52O9DtpXzwt9RqOyt1nu 92mREbz9Q3hXM9 P1CsRZVglrupiTOlrIhePC4aNMGzfys vQCBiaI2kRUBcK5h6OpEbUwP0FCfwS8 XxljV0YZUnvMSy MPOgyAVDpA0qsksqa3ebalghYzNyJVS sFPi7TYj0KQAmxWwwXoXdTPU4BuK2WA J2iGAfdP9dgSew dgzhcA9dZqh+AAQ0wYDdoQNYFP8kKtx vdGQ+HOQyXBE9eYukMYagWHXpnE3mAY PaC5p9FcTyFfE4 SJzhX0BgslL6ODOzzGAdALBpaUMDsZ9 onefxt1pkchwcZwCoRRFdZEm1YNt9PU FsaWduOiBsZWZ0 DvL7RTX3zTFwbL2lgYdvwauqjX7oPho +CxxhgFbiYLZ5ISq4R7XqGbi8FMWfwA tdUH6grCYiBHcg Sz9ziEiadQiuEJ8mGSSkagxrn811ThL hh5wrJZGmrMGfOZrwTIZ0B11dz8W0MT UpERVoNVD4cUN2 oB8saAdkcieacSVmtAatbjMijEycUWm hIJgcS613TJBdlQbuBtBeVRe8F1IpWe h2LGWgaJlmWV9o aQAzPQbfSp9yaLcpmCykUQ1rKBNrhnb ql121BeWrp6maHWOogCZpGTssISN3P1 7tv5D2DMIeBQAj LGL3dJN5oV5ojGhzuzzuhSNwkHpouzB onGvjJZuyWZfdM216QLWtxEfvXuWfpF z2B0RfIhj2EDHz oUtoHB1ufJLqXPjbBd1izZschBhrSH9 oVPJdssrgw446HxFjs8uyIXXoiZIrAK vbPCU6E68nr2G8 VLLsOJLqLGH1zHE0cR8nyUyhftvhpEQ qaXonrhYmnVtqSUahVTvfQ158VUVldU snPlBhdGllbnQg VTkmCSh7C3VtDnvasOB+FG17QLRdYD8 0aELycCYix5tkyFf2MmDjMAZbFRH2tQ dyVHatl4BeEPUt Y98spKKgz6Y9CQXxgLngmUWzKkUxpHV 0hO0eFPpfrouzs0lztuwjMaptm4gjma 55wS33O20zZTdx OTVdAKEaJCYbOQDquVwmdd8hfT5bYo7 +VIJrsUR5nMU9oY2jTOLcZeK0CJuqA6 49InRvcCIvPjxj k4ysq2dtqEg5CfR0RFTedpGrxNlqVBK 1b9VfEc33I32hXIdvPPPgJQRuFHUzZT YceJmqwq1aoX5m Ii8+BFZvgWA8fUO5fX3pLtFvJqO9RQz fX441TkJtuWFsFnqzL23wQ9FltYD+PH TmCip2DDRieVwc CJ4xzJGyNPorHz7gRSL3TmCpGbFwOBx hD7XhZQOifjfwzdhcyGB6URDjNPAkrP 12Ux7qdXmaEGIb zZBMqE8uwlwgx4vhqpvfAqPfDGXiUJb 8VUx7HESezWnoNxZaJSM2NeT2UOP5iJ PnrC1ckCyobqpa xK8fM0QeRORhkvmeOy38fL9sPjEoKjH 1MGluOyc+OoGXMSxlBQFNV0fLOIi8L8 UiWxd1JHUsaXct QE7koYMaRVriQw7szLvooNikMC7pFJO rczgcXPOjcA9bEXFbxMFxsEbvGF5bGY Nriprkf908OlEr MWR4VJXyyWScE6LnrW5jTfEnEJNqBOI mL1XyeGOhWZtaJ368JXqiJnX0LUZkcz ZxA4ZpGFUplHkj SdS2l9D9Ly3xAX5hFW5cQVH4MQ03OZ4 2rGYkn3B7pPY4G2LhUHAnapovpzluxT J4UORhOBXpcL54 aNYzGDpqNe2be6K6k395JDFcGODtgW4 3Dv8gqAwzJJIxqVDLxH3qncgqg9jqbc ogIzAwMDAwMDt0 YHw8WMPbxZfmGtMkOJX2KtI0NFG8eLK ycD8vsTtviissrJ5nCtk+NzQgWWVhcn K3E5AqCph7KNSh cLmgTC3syIFaNIfaWr6fdAzixBfrNQ6 qYPAqvoszSSYxhM7cUEDtdSOsoRmlJN 5zUKKruzxwb820 UsVsETJ0UJKimBTdW7DdxF5sPiRzOYO fCKDlC8IrcPWlOCcmS505KOelIfB7UE MnbtXnT3EkNXEr dQyfGyU6j0B2Bf8GRQ8abGT6P5QrPlz 0HIFqeXbcNK4oaBFdOPjmXp0seTqhhC twGJ5mOXEleqlu DERlvU7qHNHxtFPhiUacZH5fJOEtciq bg185QnWqIMI0GSItrVXzN2IczD3oCh WbESDaZTUwM7Qb lOBxBYldH639JNvjUtT1UQIkmeUsA0N kHHZnlYqmMbX9b9Q9Fg6AnHGiTTZoMK 54YZ42TQ17W7Fv PjwvdGFibGU+PHRhYmxlIHdpZHRoPSc wISXjZnVgvIsmRM6yPn5pSPQsVSSitX wlpRDsGsIlw1rq DNFxVFgmAQ0xfOguP2ShyIV3CZAdu3w 4Gl63B76mZ4JnkFD+OQZvzDJ6eMK0zA 7vToJbDqJ6HBjt F294QqOvzVXsJuhnn4ilu2tkpPx1FkR oNOIebbRxfDpkOTT1e8FiDk74M20bTI dpZHRoPSIyMCUi PZRxwDfims7plR2kXf2+ESEblNU3eEZ 5fM7uExPgXhZ8AWabA962DzGqtMGpAg pvC37nZ2GtwUZ+ GNVtAzi4KPShiShuAK1npZKqGWkmSx2 cMFX7HfByXyCiHYtyV8ZqREOaosmgkt cxoLE6ATJmFGDu zY04Ix6pwQunAe0kACHjSDA5TTFyhTB zX7VjaQ7nExYzKZDuDPEeK5ZjdDRwXW mwJ262URhaYbL2 DFKsmoHrH8LwZJTkuXbmSuI1l8E7Ho9 ZrNgcqSDkDE7dGwAcMLa3Y2GvVdu0CW NtmEnnME5ewJFx KCmpIb1wpNmfgUhxHK9nQZCnxeogp92 4DeXlx9mkSQHvtQWeLLdaLVX6Z55vv9 S0IDXdSZFgBGC6 yZP4mA7kdGxfgwzpzSJybFrvvyCtgKz kMFjwXCwnE736TRTvlAiuAhNNCsw6Z6 QxLvg7IJSrfWol XP0lpNJkKJndQl6kbHuyxDtiNB4tFAR otzdqz918HwQlx4bdVNJadAXzVKjyDB T5R69gg4I8JBVq FFRhQPW0tJL8rS3abWavlmpreUKmbPv slqNdwYonDPueKDbpG464SYXfwCvnNw 7FUpf9T7WgGgx7 AZIvySizHK3khDMwMYohIx0kfVzjeUk yRU4oFSTaivlvk075RbHsd5vyMPUtyV FcTEipDPJ2V58v l9M5PPTkKXCpZMO6lUZ9iS1feIfeuav jpCRrrCmzqiYceEguGHabNGhmC900QH RvcDsnPlBheWVy OjwvdGQ+SG45cq08D8LjJmaqHeq0FCC sILZ6oEU5uH8jKMBwILzoo6J1aMQ6T0 SjtgIxcx1xn9lt YXBzZTog (more content not included)... Normal [facility] [place] Mamm Screen w/CAD if perf and [...] very important to your health. The current [employer] and National Comprehensive Cancer [...] Category 1-Negative Recommendation: Normal interval follow-up Normal [facility] Consent for Treatmenton 04-21 Consent for Treatment [id number] Normal [facility] Complete Blood Count with Au to Diffon 04-13-2021 Basophils (Bld) [#/Vol] 0.06 10*3/uL Normal 0.00-0.20 [facility] Comment on above: Performed By: #### C LAURA HOLGUIN, CBCAD #### [facility] [address] [place], [place] [id number] Basophils/100 WBC (Bld) 0.8 % Normal [facility] Comment on above: Performed By: #### C LAURA HOLGUIN, CBCAD #### [facility] [address] [place], [place] [id number] Eosinophils (Bld) [#/Vol] 0.52 10*3/uL High 0.02-0.50 [facility] Comment on above: Performed By: #### C SARAH BETH HOLGUIND, CBCAD #### [facility] [address] [place], [place] [id number] Eosinophils/100 WBC (Bld) 7.3 % Normal [facility] Comment on above: Performed By: #### C SARAH BETH HOLGUIND, CBCAD #### [facility] [address] [place], [place] [id number] Erythrocyte distribution width (RBC) [Ratio] 13.1 % Normal 11.0-15.0 [facility] Comment on above: Performed By: #### C SARAH BETH HOLGUIND, CBCAD #### [facility] [address] [place], [place] [id number] Hematocrit (Bld) [Volume fraction] 43.9 % Normal 35.0-47.0 [facility] Comment on above: Performed By: #### C CHELSIE LIPD, CBCAD #### [facility] [address] [place], [place] [id number] Hemoglobin (Bld) [Mass/Vol] 14.5 g/dL Normal 11.6-15.5 [facility] Comment on above: Performed By: #### C MP LIPD, CBCAD #### [facility] [address] [place], [place] [id number] Lymphocytes (Bld) [#/Vol] 2.4 10*3/uL Normal 0.9-3.9 [facility] Comment on above: Performed By: #### C MP, LIPD, CBCAD #### [facility] [address] [place], [place] [id number] Lymphocytes/100 WBC (Bld) 34.2 % Normal [facility] Comment on above: Performed By: #### C CHELSIE LIPD, CBCAD #### [facility] [address] [place], [place] [id number] MCH (RBC) [Entitic mass] 31.6 pg Normal 27.0-33.0 [facility] Comment on above: Performed By: #### C CHELSIE, LIPD, CBCAD #### [facility] [address] [place], [place] [id number] MCHC (RBC) [Mass/Vol] 33.0 g/dL Normal 32.0-36.0 [facility] Comment on above: Performed By: #### C CHELSIE LIPD, CBCAD #### [facility] [address] [place], [place] [id number] MCV (RBC) [Entitic vol] 96 fL Normal 80-100 [facility] Comment on above: Performed By: #### C MP, LIPD, CBCAD #### [facility] [address] [place], [place] [id number] Monocytes (Bld) [#/Vol] 0.9 10*3/uL Normal 0.2-0.9 [facility] Comment on above: Performed By: #### C MP, LIPD, CBCAD #### [facility] [address] [place], [place] [id number] Monocytes/100 WBC (Bld) 13.0 % Normal [facility] Comment on above: Performed By: #### C MP, LIPD, CBCAD #### [facility] [address] [place], [place] [id number] Neutrophils (Bld) [#/Vol] 3.2 10*3/uL Normal 1.5-7.8 [facility] Comment on above: Performed By: #### C MP, LIPD, CBCAD #### [facility] [address] [place], [place] [id number] Neutrophils/100 WBC (Bld) 44.3 % Normal [facility] Comment on above: Performed By: #### C MP, LIPD, CBCAD #### [facility] [address] [place], [place] [id number] Platelet mean volume (Bld) [Entitic vol] 10.30 fL Normal 7.50-12.50 [facility] Comment on above: Performed By: #### C MP, LIPD, CBCAD #### [facility] [address] [place], [place] [id number] Platelets (Bld) [#/Vol] 453 10*3/uL High 140-400 [facility] Comment on above: Performed By: #### C MP, LIPD, CBCAD #### [facility] [address] [place], [place] [id number] RBC (Bld) [#/Vol] 4.59 10*6/uL Normal 3.90-5.20 [facility] Comment on above: Performed By: #### C MP, LIPD, CBCAD #### [facility] [address] [place], [place] [id number] RDW-SD 45.7 fL Normal 37.0-50.0 [facility] Comment on above: Performed By: #### C MP, LIPD, CBCAD #### [facility] [address] [place], [place] [id number] WBC (Bld) [#/Vol] 7.1 10*3/uL Normal 3.8-11.0 [facility] Comment on above: Performed By: #### C MP, LIPD, CBCAD #### [facility] [address] [place], [place] [id number] Comprehensive Metabolic Pane alfonzo 04-13-2021 Albumin [Mass/Vol] 4.5 g/dL Normal 3.6-5.1 [facility] Comment on above: Performed By: #### C LAURA HOLGUIN, CBCAD #### [facility] [address] [place], [place] [id number] Albumin/Globulin [Mass ratio] 1.6 {ratio} Normal 1.0-2.5 [facility] Comment on above: Performed By: #### C LAURA HOLGUIN, CBCAD #### [facility] [address] [place], [place] [id number] ALP [Catalytic activity/Vol] 125 U/L High 35-119 [facility] Comment on above: Performed By: #### C LAURA HOLGUIN, CBCAD #### [facility] [address] [place], [place] [id number] ALT [Catalytic activity/Vol] 12 U/L Normal 6-33 [facility] Comment on above: Result Comment: 01/20 Female reference range changed. Performed By: #### C LAURA HOLGUIN, CBCAD #### [facility] [address] [place], [place] [id number] Anion gap [Moles/Vol] 20 mmol/L Normal 12-20 [facility] Comment on above: Result Comment: Effe ctive 02/25/2019 reference range changed. Performed By: #### C LAURA HOLGUIN, CBCAD #### [facility] [address] [place], [place] [id number] AST [Catalytic activity/Vol] 20 U/L Normal 9-34 [facility] Comment on above: Performed By: #### C LAURA HOLGUIN, CBCAD #### [facility] [address] [place], [place] [id number] Bilirubin [Mass/Vol] 0.55 mg/dL Normal 0.30-1.20 [facility] Comment on above: Performed By: #### C LAURA HOLGUIN, CBCAD #### [facility] [address] [place], [place] [id number] BUN/CREA 22 Ratio Normal 6-22 [facility] Comment on above: Performed By: #### C LAURA HOLGUIN, CBCAD #### [facility] [address] [place], [place] [id number] Calcium [Mass/Vol] 10.1 mg/dL Normal 8.6-10.2 [facility] Comment on above: Performed By: #### C LAURA HOLGUIN, CBCAD #### [facility] [address] [place], [place] [id number] Chloride [Moles/Vol] 104 mmol/L Normal 98-107 [facility] Comment on above: Performed By: #### C LAURA HOLGUIN, CBCAD #### [facility] [address] [place], [place] [id number] CO2 [Moles/Vol] 24 mmol/L Normal 20-31 [facility] Comment on above: Performed By: #### C LAURA HOLGUIN, CBCAD #### [facility] [address] [place], [place] [id number] Creatinine [Mass/Vol] 0.9 mg/dL Normal 0.6-1.4 [facility] Comment on above: Performed By: #### C LAURA HOLGUIN, CBCAD #### [facility] [address] [place], [place] [id number] eGFRAA 71 mL/min/1.73m2 Normal >60 [facility] Comment on above: Performed By: #### C LAURA HOLGUIN, CBCAD #### [facility] [address] [place], [place] [id number] eGFRNAA 58 mL/min/1.73m2 Low >60 [facility] Comment on above: Performed By: #### C LAURA HOLGUIN, CBCAD #### [facility] [address] [place], [place] [id number] Globulin (S) [Mass/Vol] 2.8 g/dL Normal 1.9-3.7 [facility] Comment on above: Performed By: #### C LAURA HOLGUIN, CBCAD #### [facility] [address] [place], [place] [id number] Glucose [Mass/Vol] 110 mg/dL High 65-99 [facility] Comment on above: Result Comment: For FASTING Glucose --- ADA reference ranges: Normal 65-99 mg/dl Prediabetes 100-125 Diabetes >/= 126 Performed By: #### C MP, LIPD, CBCAD #### [facility] [address] [facility] [place] [id number] Potassium [Moles/Vol] 4.3 mmol/L Normal 3.5-5.5 [facility] Comment on above: Performed By: #### C MP, LIPD, CBCAD #### [facility] [address] [facility] [place] [id number] Protein [Mass/Vol] 7.3 g/dL Normal 6.1-8.1 [facility] Comment on above: Performed By: #### C MP, LIPD, CBCAD #### [facility] [address] [facility] [place] [id number] Sodium [Moles/Vol] 143 mmol/L Normal 135-146 [facility] Comment on above: Performed By: #### C MP, LIPD, CBCAD #### [facility] [address] [facility] [place] [id number] Urea nitrogen [Mass/Vol] 20 mg/dL Normal 7-25 [facility] Comment on above: Performed By: #### C MP, LIPD, CBCAD #### [facility] [address] [facility] [place] [id number] Lipid Panelon 04-13-2021 Cholesterol [Mass/Vol] 196 mg/dL Normal 125-200 [facility] Comment on above: Result Comment: Low risk < 200mg/dL Borderline risk 201-239 mg/dl High risk > or equal to 240 Performed By: #### C MP, LIPD, CBCAD #### [facility] [address] [place], [place] [id number] Cholesterol in HDL [Mass/Vol] 46 mg/dL Normal >40 [facility] Comment on above: Result Comment: High Cardiovascular Risk HDL <40 mg/dL Low Cardiovascular Risk HDL > or equal to 60 mg/dl Performed By: #### C MP, LIPD, CBCAD #### [facility] [address] [facility] [place] [id number] Cholesterol in LDL [Mass/Vol] 98 mg/dL Normal [facility] Comment on above: Result Comment: LDL ATP III CLASSIFICATION LDL less than 100 mg/dl Optimal LDL 100-129 mg/dl Near or above optimal LDL 130-159 Borderline high LDL 160-189 High LDL greater than 189 mg/dl Very High Performed By: #### C CHELSIE, SARAH BETHD, CBCAD #### [facility] [address] [place], [place] [id number] Cholesterol in VLDL [Mass/Vol] 52 mg/dL Normal [facility] Comment on above: Performed By: #### C CHELSIE, LIPD, CBCAD #### [facility] [address] [place], [place] [id number] Cholesterol.total /Cholesterol in HDL [Mass ratio] 4 {ratio} Normal [facility] Comment on above: Performed By: #### C CHELSIE, LIPD, CBCAD #### [facility] [address] [place], [place] [id number] Triglyceride [Mass/Vol] 262 mg/dL High 30-150 [facility] Comment on above: Result Comment: TRIG ATPIII CLASSIFICATIONS TRIG less than 150 mg/dl Normal TRIG 150-199 mg/dl Borderline High TRIG 200-500 mg/dl High TRIG greather than 500 mg/dl Very High Performed By: #### C CHELSIE, LIPD, CBCAD #### [facility] [address], [place] [id number] Basic Metabolic Panlon 02-17 Anion gap 3 molar conc 9 mmol/L Normal -18 [facility] Comment on above: Performed By: #### C BCDIF, BMP, MG1, PHOS, PT ####[facility] [phone] Calcium mass conc 8.5 mg/dL Normal 8.5-10.5 [facility] Comment on above: Performed By: #### C BCDIF, BMP, MG1, PHOS, PT ####[facility] [place] [phone] Chloride molar conc 109 mmol/L Normal 98-110 [facility] Comment on above: Performed By: #### C BCDIF, BMP, MG1, PHOS, PT ####[place] [phone] CO2 molar conc 25 mmol/L Normal 23-32 [facility] Comment on above: Performed By: #### C BCDIF, BMP, MG1, PHOS, PT ####[place] [phone] Creatinine mass conc 0.62 mg/dL Low 0.70-1.40 [facility] Comment on above: Performed By: #### C BCDIF, BMP, MG1, PHOS, PT ####[place] [phone] eGFR- Amer. >60 Normal >60 [facility] Comment on above: Performed By: #### C BCDIF, BMP, MG1, PHOS, PT ####[place] [phone] GFR/1.73 sq M predicted among non-blacks MDRD vol rate/area (S/P/Bld) mL/min/{1.73_m2} Normal >60 [facility] Comment on above: Performed By: #### C BCDIF, BMP, MG1, PHOS, PT ####[place] [phone] Glucose mass conc 109 mg/dL High 65-100 [facility] Comment on above: Performed By: #### C BCDIF, BMP, MG1, PHOS, PT ####[place] [phone] Potassium molar conc 3.5 mmol/L Normal 3.5-5.0 [facility] Comment on above: Performed By: #### C BCDIF, BMP, MG1, PHOS, PT ####[place] [phone] Sodium molar conc 143 mmol/L Normal 132-148 [facility] Comment on above: Performed By: #### C BCDIF, BMP, MG1, PHOS, PT ####[place] [phone] Urea nitrogen mass conc 6 mg/dL Low 8-25 [facility] Comment on above: Performed By: #### C BCDIF, BMP, MG1, PHOS, PT ####[place] [address] CBC and Differentialon 02-17 Abs Baso <0.03 Normal <0.11 [facility] Comment on above: Performed By: #### C BCDIF, BMP, MG1, PHOS, PT ####[place] [address] Abs [place] 1.46 k/uL High <0.87 [facility] Comment on above: Performed By: #### C BCDIF, BMP, MG1, PHOS, PT ####[place] [address] Abs Neut 7.50 k/uL Normal 1.45-7.50 [facility] Comment on above: Performed By: #### C BCDIF, BMP, MG1, PHOS, PT ####[place] [address] Basophils/100 WBC Auto (Bld) 0.2 % Normal [facility] Comment on above: Performed By: #### C BCDIF, BMP, MG1, PHOS, PT ####[place] [address] DTYPE Auto Diff Normal [facility] Comment on above: Performed By: #### C BCDIF, BMP, MG1, PHOS, PT ####[place] [phone] Eosinophils Auto #/vol (Bld) 0.29 10*3/uL Normal <0.46 [facility] Comment on above: Performed By: #### C BCDIF, BMP, MG1, PHOS, PT ####[place] [phone] Eosinophils/100 WBC Auto (Bld) 2.8 % Normal [facility] Comment on above: Performed By: #### C BCDIF, BMP, MG1, PHOS, PT ####[place] [phone] Erythrocyte distribution width Auto Ratio (RBC) 16.5 % High 11.5-15.0 [facility] Comment on above: Performed By: #### C BCDIF, BMP, MG1, PHOS, PT ####[place] [phone] Hematocrit Auto Volume Fraction (Bld) 30.2 % Low 36.0-46.0 [facility] Comment on above: Performed By: #### C BCDIF, BMP, MG1, PHOS, PT ####[place] [phone] Hemoglobin mass conc (Bld) 9.5 g/dL Low 11.5-15.5 [facility] Comment on above: Performed By: #### C BCDIF, BMP, MG1, PHOS, PT ####[place] [phone] Lymphocytes Auto #/vol (Bld) 0.95 10*3/uL Low 1.00-4.00 [facility] Comment on above: Performed By: #### C BCDIF, BMP, MG1, PHOS, PT ####[address] Lymphocytes/100 WBC Auto (Bld) 9.3 % Normal [facility] Comment on above: Performed By: #### C BCDIF, BMP, MG1, PHOS, PT ####[place] [phone] MCH Auto Entitic mass (RBC) 28.7 pG Normal 26.0-34.0 [facility] Comment on above: Performed By: #### C BCDIF, BMP, MG1, PHOS, PT ####[place] [phone] MCHC Auto mass conc (RBC) 31.5 g/dL Normal 30.5-36.0 [facility] Comment on above: Performed By: #### C BCDIF, BMP, MG1, PHOS, PT ####[place] [phone] MCV Auto Entitic volume (RBC) 91.2 fL Normal 80.0-100.0 [facility] Comment on above: Performed By: #### C BCDIF, BMP, MG1, PHOS, PT ####[place] [phone] Monocytes/100 WBC Auto (Bld) 14.3 % Normal [facility] Comment on above: Performed By: #### C BCDIF, BMP, MG1, PHOS, PT ####[place] [phone] Neutrophils/100 WBC Auto (Bld) 73.4 % Normal [facility] Comment on above: Performed By: #### C BCDIF, BMP, MG1, PHOS, PT ####[place] [phone] Platelet mean volume Auto Entitic volume (Bld) 9.6 fL Normal 9.0-12.7 [facility] Comment on above: Performed By: #### C BCDIF, BMP, MG1, PHOS, PT ####[place] [phone] Platelets Auto #/vol (Bld) 248 10*3/uL Normal 150-400 [facility] Comment on above: Performed By: #### C BCDIF, BMP, MG1, PHOS, PT ####[place] [phone] RBC Auto #/vol (Bld) 3.31 10*6/uL Low 3.90-5.20 [facility] Comment on above: Performed By: #### C BCDIF, BMP, MG1, PHOS, PT ####[place] [phone] WBC Auto #/vol (Bld) 10.22 10*3/uL Normal 3.70-11.00 [facility] Comment on above: Performed By: #### C BCDIF, BMP, MG1, PHOS, PT ####[place] [id number] [place] [phone] Magnesiumon 02-17-2018 Magnesium mass conc 2.0 mg/dL Normal 1.7-2.6 [facility] Comment on above: Performed By: #### C BCDIF, BMP, MG1, PHOS, PT ####[place] [phone] NURSING PROGon 02-17-2018 Protein mass conc HNO ID: [id number] thor: Heidy (Rn) Favian Boyleice: (none)Author Type: Registered NurseType: Nursing Progress NoteFiled: 02/17/2018 1:46 PMNote Text: Nursing Progress NotePatient Name: Brenda McclainMRN: [id number] Location: [id number] walked with patient on RA satting 94%.0917 SR paged [id number] Brenda Mcclain: phos 1.4 this AM does she needanything? ThanksHeidy [id number] receivedAguilar Juarez CM [facility] is set up.This note was completed by: Heidy Boyle RN [facility] Protein mass conc HNO ID: [id number] thor: Franchesca (Rn) Favian Beebeice: NursingAuthor Type: Registered NurseType: Nursing Progress NoteFiled: 02/17/2018 12:33 AMNote Text: Nursing Progress NotePatient Name: Brenda McclainMRN: [id number] Location: [id number]-[id number]-17 Daily Note:AANDO times 3. Patient has pain [...] was completed by: Franchesca Beebe RN Normal [facility] Phosphoruson 02-17-2018 Phosphate mass conc 1.4 mg/dL Low 2.5-4.5 [facility] Comment on above: Performed By: #### C BCDIF, BMP, MG1, PHOS, PT ####[facility] [place], [place] [phone] Protimeon 02-17-2018 INR Coag RelTime (Bld) 1.0 {INR} Normal 0.9-1.3 [facility] Comment on above: Result Comment: Danni min K Antagonist (VKA) Therapeutic Range: INR 2 to 3 (Target INR of 2.5)Note: For patients treated with VKA drugs, such as warfarin, the [place] [employer] 2012 Guideline recommends [...] of 3).Nancy ROACH, et al. Chest 2012, 141:7S-47SNishimura RA, et al. [facility] 2017, 70: 252-289 Performed By: #### C BCDIF, BMP, MG1, PHOS, PT ####[facility] [place], [place] [phone] PT Sec 10.6 sec Normal 9.7-13.0 [facility] Comment on above: Performed By: #### C BCDIF, BMP, MG1, PHOS, PT ####[facility] [place], [place] [phone] Amylase,Body Fluidon 02-16-2 018 Amylase,Body Fluid 142 U/L Critically abnormal See Comment [facility] Comment on above: Result Comment: (NOT [...] CLSI document C49-A. JOSEFINA Giordano: Clinical LaboratoryStandards [place]; 2007.3. Donovan VIGILH, Neel MCLAUGHLIN, Renzo DJ. Use of cyst fluid CEA,CA19-9, and amylase for evaluation of pancreatic lesions. ClinicalBiochemistry. 2009;42:0502-3087.This test was developed and its performance characteristicsdetermined by [facility] ([facility]).It has not been cleared or approved by the FDA. -[facility] is regulatedunder CLIA as qualified to perform high-complexity testing.This test is used for clinical purposes. It should not be regarded asinvestigational or for research. Performed By: #### F AMYL ####[place] [phone] [place] [address] Fluid Type Other Normal [facility] Comment on above: Result Comment: ACE D RAIN ABDOMEN Performed By: #### F AMYL ####[place] [address] CASE MANAGEMon 02-16-2018 CASE MANAGEM HNO ID: [id number] thor: TRUDY Becerra Rnervice: Case ManagementAuthor Type: Registered NurseType: Care Mgt Progress NoteFiled: 02/16/2018 1:55 PMNote Text:CARE MANAGEMENT DISCHARGE NOTESERVICE DATE: 02/16/2018SERVICE TIME: 1:55 PM LOS: 2 daysIM letter given to patient on 02.16.2018.SIGNATURE: Luisito Bill RN PATIENT NAME: Brenda Cooper: February 16, 2018 : 1:55 PM PAGER/CONTACT #: [phone] [facility] CASE MANAGEM HNO ID: [id number] thor: TRUDY Becerra Rnervice: Case ManagementAuthor Type: Registered NurseType: Care Mgt Progress NoteFiled: 02/16/2018 1:44 PMNote Text:CARE MANAGEMENT DISCHARGE NOTESERVICE DATE: 02/16/2018SERVICE TIME:1:43 PM LOS: 2 days d/c plan is faye butler [facility] # [phone] set to see pt [phone] pending d/cSIGNATURE: Luisito Bill RN PATIENT NAME: Brenda Cooper: February 16, 2018 : 1:43 PM PAGER/CONTACT #: [phone] [facility] CASE MGT INIT [place] 2017 CASE MGT INIT ERIC HNO ID: [id number]: Luisito Garnica (Rn) TRUDY Billervice: Case ManagementAuthor Type: Registered NurseType: Care Mgt Initial AssessmentFiled: 02/16/2018 9:01 AMNote Text:CARE MANAGEMENT: ASSESSMENT AND DISCHARGE PLANSERVICE DATE: 02/16/2018SERVICE TIME: 8:58 AMPRIMARY CARE PHYSICIAN:Pam Villalobos, MDPhone: XDHHTAIUD STATUS: InpatientMEDICAL:Patient/Repres entative Stated Goals:To improve my functional statusHealth Insurance: MEDICARE A AND BMedicareHealth Issues Impacting Discharge Plan: IBSLast Admission Date: Previous admit date: 01/23/2008Is this Within the Past 30 days? NoAdvance Directive:Current Advance Directive: NoneIn Chart: NoCare Structures Mechanic Attempted to Assist with AD Completion: YesAction: [...] bench/chairHas the Patient Been in a Senior Living Facility in the Past 30 days? NoSOCIAL:Living Arrangement: HomeLives With: SpouseFinancial Resources: RetiredPrimary Contact: Extended Emergency Contact InformationPrimary Emergency Contact: Danilo McclainAddress: [address] [place] [address] [facility] Gsagjl Cbndnqyc: SpouseSecondary Emergency Contact: Lea Montalvo Wvapni Qkyhvpjq: DaughterSupportive: YesOther Important Patient Contacts: spouse cell [phone] Assessment:Caregiver is ready, willing and able to meet the patient's needs asrecommended by the inter-professional team? YesPatient's transition needs and plan for meeting these needs: pt requiresassistance w adls, therapy recommending C and pt agreeable andrequesting [facility]- referral sent and working on socYudy the patient have an acute stroke diagnosis, or has the patient had astroke during this admission? NoMedication Adherence:I am convinced of the importance of my prescription medication: Agreecompletely - 0I worry that my prescription medication will do more harm than good to meDisagree completely - 0I feel financially burdened by my miy-iz-gpgiwn expenses for myprescription medication: Disagree mostly -0Patient [...] IPTA,lives w spouse plan dc over weekend [facility] referral started working on SOC Yolanda ROMO for [id number]: Luisito Bill RN PATIENT NAME: Brenda McclainDATE: February 16, 2018 : 8:58 AM PAGER/CONTACT #: [phone] [facility] NURSING PROGon 02-16-2018 Protein mass conc HNO ID: [id number] thor: Johanne (Rn) [place], RNService: NursingAuthor Type: Registered NurseType: Nursing Progress NoteFiled: 02/16/2018 5:53 PMNote Text: Nursing Progress NotePatient Name: Brenda McclainMRN: [id number] [facility]3B13/JW-[id number]-62 Pt A+Ox3, pleasant. Abdomen soft AND tender, [...] PROGRESSon 02-16-2018 Protein mass conc HNO ID: [id number] thor: Ant (Res)(Hist) SiderisService: General SurgeryAuthor Type: ResidentType: Progress NotesFiled: 02/17/2018 10:06 AMNote Text: Attestat ion signed by Alfie Martinez at 02/17/2018 11:22 AMPatient doing well. Progressing without any postop concerns. DC planning.Splenectomy vaccines to be given likely before DC home. General Surgery Progress NoteName: Brenda McclainN: [id number] update:Overall, patient is doing well. No significant [...] respirations.Date 02/15/18 0700 - 02/16/18 0659 02/16/18 07 - 02/17/18 0659Shift 3510-6687 1455-6264 4008-5013 24 Hour Total [phone] 24 Hour TotalINTAKE PO 0 650 650 [...] prior to DC if still here in 7-5dcml-Cjxrxgdcz incentive spirometry and ambulation, wean oxygen as tolerated-SCD's and [facility] for DVT prophylaxis-will likely discharge today or tomorrowAntonios MD [facility], PGY-5Pager: [phone] Surgery Pager: [phone], weekdays 6A-6POn call pager: [phone], nights and weekends? Normal [facility] Phosphoruson 02-16-2018 Phosphate mass conc 1.7 mg/dL Low 2.5-4.5 [facility] Comment on above: Performed By: #### P HOS ####[facility] [place], [place] [phone] APTTon 02-15-2018 aPTT Coag time (Bld) 20.8 s Low 23.0-32.4 [facility] Comment on above: Result Comment: Unfr [...] laboratory APTT reagent in use throughout the [facility]. Performed By: #### C BCDIF, PTT, PT, AMYL, BMP, MG1 ####[facility] [place], [place] [phone] Amylaseon 02-15-2018 Amylase enzyme act/vol 228 U/L High 0-137 [facility] Comment on above: Performed By: #### C BCDIF, PTT, PT, AMYL, BMP, MG1 ####[facility] [place], [place] [phone] Amylase,Body Fluidon 02-15-2 018 Amylase,Body Fluid 64 U/L Critically abnormal See Comment [facility] Comment on above: Result Comment: (NOT [...] CLSI document C49-A. JOSEFINA Giordano: Clinical LaboratoryStandards [place]; 2007.3. Donovan VIGIL, Neel MCLAUGHLIN, Renzo DJ. Use of cyst fluid CEA,CA19-9, and amylase for evaluation of pancreatic lesions. ClinicalBiochemistry. 2009;42:6091-7498.This test was developed and its performance characteristicsdetermined by [facility]'s Angel[facility] Ph[facility] Pathology andLaboratory Medicine [place] ([facility]).It has not been cleared or approved by the FDA. -[facility] is regulatedunder CLIA as qualified to perform high-complexity testing.This test is used for clinical purposes. It should not be regarded asinvestigational or for research. Performed By: #### F AMYL ####[place] [phone] [address] [place] [phone] Fluid Type Gopi Pedro Drain Normal [facility] Comment on above: Performed By: #### F AMYL ####[place] [phone] [phone] Basic Metabolic Panlon 02-15 Anion gap 3 molar conc 11 mmol/L Normal 9-18 [facility] Comment on above: Performed By: #### C BCDIF, PTT, PT, AMYL, BMP, MG1 ####[place] [phone] Calcium mass conc 8.6 mg/dL Normal 8.5-10.5 [facility] Comment on above: Performed By: #### C BCDIF, PTT, PT, AMYL, BMP, MG1 ####[place] [phone] Chloride molar conc 105 mmol/L Normal 98-110 [facility] Comment on above: Performed By: #### C BCDIF, PTT, PT, AMYL, BMP, MG1 ####[place] [phone] CO2 molar conc 24 mmol/L Normal 23-32 [facility] Comment on above: Performed By: #### C BCDIF, PTT, PT, AMYL, BMP, MG1 ####[place] [phone] Creatinine mass conc 0.72 mg/dL Normal 0.70-1.40 [facility] Comment on above: Performed By: #### C BCDIF, PTT, PT, AMYL, BMP, MG1 ####[place] [phone] eGFR- Amer. >60 Normal >60 [facility] Comment on above: Performed By: #### C BCDIF, PTT, PT, AMYL, BMP, MG1 ####[place] [phone] GFR/1.73 sq M predicted among non-blacks MDRD vol rate/area (S/P/Bld) mL/min/{1.73_m2} Normal >60 [facility] Comment on above: Performed By: #### C BCDIF, PTT, PT, AMYL, BMP, MG1 ####[place] [phone] Glucose mass conc 195 mg/dL High 65-100 [facility] Comment on above: Performed By: #### C BCDIF, PTT, PT, AMYL, BMP, MG1 ####[place] [phone] Potassium molar conc 4.3 mmol/L Normal 3.5-5.0 [facility] Comment on above: Performed By: #### C BCDIF, PTT, PT, AMYL, BMP, MG1 ####[place] [phone] Sodium molar conc 140 mmol/L Normal 132-148 [facility] Comment on above: Performed By: #### C BCDIF, PTT, PT, AMYL, BMP, MG1 ####[place] [phone] Urea nitrogen mass conc 14 mg/dL Normal 8-25 [facility] Comment on above: Performed By: #### C BCDIF, PTT, PT, AMYL, BMP, MG1 ####[place] [phone] CBC and Differentialon 02-15 Abs Baso <0.03 Normal <0.11 [facility] Comment on above: Performed By: #### A BINTB ####[facility] [address] [place], [place] [phone] Abs [place] 0.74 k/uL Normal <0.87 [facility] Comment on above: Performed By: #### A BINTB ####[place] [phone] Abs Neut 11.13 k/uL High 1.45-7.50 [facility] Comment on above: Performed By: #### A BINTB ####[place] [phone] Basophils/100 WBC Auto (Bld) 0.1 % Normal [facility] Comment on above: Performed By: #### A BINTB ####[place] [phone] DTYPE Auto Diff Normal [facility] Comment on above: Performed By: #### A BINTB ####[place] [phone] Eosinophils Auto #/vol (Bld) 10*3/uL Normal <0.46 [facility] Comment on above: Performed By: #### A BINTB ####[place] [phone] Eosinophils/100 WBC Auto (Bld) 0.0 % Normal [facility] Comment on above: Performed By: #### A BINTB ####[place] [phone] Erythrocyte distribution width Auto Ratio (RBC) 16.6 % High 11.5-15.0 [facility] Comment on above: Performed By: #### A BINTB ####[place] [phone] Hematocrit Auto Volume Fraction (Bld) 35.4 % Low 36.0-46.0 [facility] Comment on above: Performed By: #### A BINTB ####[place] [phone] Hemoglobin mass conc (Bld) 11.6 g/dL Normal 11.5-15.5 [facility] Comment on above: Performed By: #### A BINTB ####[address] [phone] Lymphocytes Auto #/vol (Bld) 0.65 10*3/uL Low 1.00-4.00 [facility] Comment on above: Performed By: #### A BINTB ####[address] [phone] Lymphocytes/100 WBC Auto (Bld) 5.2 % Normal [facility] Comment on above: Performed By: #### A BINTB ####[place] [phone] MCH Auto Entitic mass (RBC) 28.9 pG Normal 26.0-34.0 [facility] Comment on above: Performed By: #### A BINTB ####[place] [phone] MCHC Auto mass conc (RBC) 32.8 g/dL Normal 30.5-36.0 [facility] Comment on above: Performed By: #### A BINTB ####[place] [phone] MCV Auto Entitic volume (RBC) 88.3 fL Normal 80.0-100.0 [facility] Comment on above: Performed By: #### A BINTB ####[place] [phone] Monocytes/100 WBC Auto (Bld) 5.9 % Normal [facility] Comment on above: Performed By: #### A BINTB ####[place] [phone] Neutrophils/100 WBC Auto (Bld) 88.8 % Normal [facility] Comment on above: Performed By: #### A BINTB ####[address] [phone] Platelet mean volume Auto Entitic volume (Bld) 9.3 fL Normal 9.0-12.7 [facility] Comment on above: Performed By: #### A BINTB ####[facility] [place], [place] [phone] Platelets Auto #/vol (Bld) 261 10*3/uL Normal 150-400 [facility] Comment on above: Performed By: #### A BINTB ####[address] [phone] RBC Auto #/vol (Bld) 4.01 10*6/uL Normal 3.90-5.20 [facility] Comment on above: Performed By: #### A BINTB ####[place] [phone] WBC Auto #/vol (Bld) 12.53 10*3/uL High 3.70-11.00 [facility] Comment on above: Performed By: #### A BINTB ####[place] [phone] Magnesiumon 02-15-2018 Magnesium mass conc 2.1 mg/dL Normal 1.7-2.6 [facility] Comment on above: Result Comment: Revi ewed Performed By: #### C BCDIF, PTT, PT, AMYL, BMP, MG1 ####[facility] [place], [place] [phone] NURSING PROGon 02-15-2018 Protein mass conc HNO ID: [id number] thor: Dionisio (Rn) TRUDY Leungervice: (none)Author Type: Registered NurseType: Nursing Progress NoteFiled: 02/15/2018 6:27 PMNote Text: Nursing Progress NotePatient Name: Brenda Miller CoryN: [id number] Location: [facility]3B13/VM-OY6J-43 Daily Note:02/15/18 1030- Patient arrived to room 313 from SICU via cartat approximately 1030. Patient is alert [...] note was completed by: Dionisio Leung RN [facility] Protein mass conc HNO ID: [id number] thor: Amber Mann) Ari Martinez: (none)Author Type: Registered NurseType: Nursing Progress NoteFiled: 02/15/2018 10:31 AMNote Text: Nursing Progress NotePatient Name: Brenda McclainMRN: [id number] Location: [facility]/CN-XGW-44 Daily Note:0700. Report received from rn primary care RN. Patient resting comfortably inbed at this time. Vital signs stable.0800. Assessment complete; see documentation.0915. Arterial line removed and pressure applied until hemostasis wasachieved.0920. Attempted to call report. Nurse unavailable.0950. Report called to RN on PK3A who will be resuming care of patient.1010. Beck catheter removed.1015. Patient transported to PK3B via wheelchair on portable O2. Allbelongings and chart sent with patient.This note was completed by: Amber Martinez RN [facility] Protein mass conc HNO ID: [id number] thor: Negro AlmarazRn) Ari Beaulieu: (none)Author Type: Registered NurseType: Nursing Progress NoteFiled: 02/15/2018 8:02 AMNote Text: Nursing Progress NotePatient Name: Brenda McclainMRN: [id number] Location: [facility]/MS-SNT-88 Daily Note:2315: Received report from Aaron DIETZ.0000: Assessment complete, see flow sheet. VSS.0344: Reassessment complete, see flow sheet. PRN labetolol given per MARfor SBP . 160. All other VSS.0725: Report given to HERMINIO ClarkThis note was completed by: Negro Beaulieu RN [facility] Protein mass conc HNO ID: [id number] thor: Aaron (Herminio) TRUDY Mcdermottervice: (none)Author Type: Registered NurseType: Nursing Progress NoteFiled: 02/14/2018 11:21 PMNote Text: Nursing Progress NotePatient Name: Brenda McclainN: [id number] Location: [place] [address]/NU-BKN-92 Daily Note:2029: Patient arrived to SICU bed [...] PROGRESSon 02-15-2018 Protein mass conc HNO ID: [id number] thor: Surendra (Elva) Mooseervice: General SurgeryAuthor Type: ResidentType: Progress NotesFiled: 02/15/2018 8:42 AMNote Text:General Surgery Progress NoteName: Brenda McclainMRN: [id number] update:Overall, patient is doing well. No significant [...] 02/15/18 0659 02/15/18 0700 - 02/16/18 0659Shift 8651-8634 1891-0125 4928-1797 24 Hour Total [phone] 24 Hour TotalINTAKE IV 3500 927 4427 [...] to Clear liquids-NG to LIWS-follow drain amylase-florin bcek today-pain control PRN (added liquid maru, tylenol 1000m q6h)-post splenectomy vaccines arranged for 02/28/2018 (HiB, pneumococcal,meningococcal, influenza)-Encourage incentive spirometry and ambulation-SCD's and [facility] for DVT prophylaxis-Dispo: [facility] todayDiscussed with Dr. Garsia?M REID Acosta-1 Resident, General SurgeryPager: [phone]; Dated: February 15, 2018, 8:38 AM? Normal [facility] Phosphoruson 02-15-2018 Phosphate mass conc 2.9 mg/dL Normal 2.5-4.5 [facility] Comment on above: Performed By: #### P HOS ####[place] [address] [place], [place] [phone] Protimeon 02-15-2018 INR Coag RelTime (Bld) 1.0 {INR} Normal 0.9-1.3 [facility] Comment on above: Result Comment: Danni min K Antagonist (VKA) Therapeutic Range: INR 2 to 3 (Target INR of 2.5)Note: For patients treated with VKA drugs, such as warfarin, the [place] [employer] 2012 Guideline recommends [...] of 3).Nancy GH, et al. Chest 2012, 141:7S-47SNishtony RA, et al. [facility] 2017, 70: 252-289 Performed By: #### C BCDIF, PTT, PT, AMYL, BMP, MG1 ####[place] [address] [place], [place] [phone] PT Sec 10.5 sec Normal 9.7-13.0 [facility] Comment on above: Performed By: #### C BCDIF, PTT, PT, AMYL, BMP, MG1 ####[place] [address] [place], [place] [phone] THERAPY NTon 02-15-2018 THERAPY NT HNO ID: [id number] thor: Milagro (Ot) YocabetService: Occupational TherapyAuthor Type: Occupational TherapistType: Therapy (PT/OT/Speech/Resp)Filed: 02/15/2018 10:26 AMNote Text:Occupational Therapy EvaluationSERVICE DATE: 02/15/2018SERVICE TIME: 849 to 912ROOM: [id number] Discharge Disposition: Home OTAnticipated Discharge Needs: Physical [...] mobility-other;Decreased activities of dailyliving (ADL)Interventions Provided: Evaluation;Self Retirement Management (88576)$ Evaluation-Low (03923) Billed Units: 1 unitSelf Retirement Management (50587) Treatment Minutes: 81 unitSkilled Intervention(s): Provided cuing [...] (02/15/18 0850)Self Care Goal Status (G8988): CJ (02/15/1850)Based on clinical assessment and the score on [...] evaluation/treatment.SIGNATURE: Milagro Craig OT/Angela PATIENT NAME: Brenda BatistaayDATE: February 15, 2018 : 10:23 AM Normal [facility] THERAPY NT HNO ID: [id number] thor: Shannon (Pt) ThoburnService: Physical TherapyAuthor Type: Physical TherapistType: Therapy (PT/OT/Speech/Resp)Filed: 02/15/2018 9:24 AMNote Text:Physical Therapy EvaluationSERVICE DATE: 02/15/2018SERVICE TIME: 0840 to 0903ROOM: [id number] Discharge Disposition: Home PTPT Recommendations to Nursing: [...] INTERVENTIONS:Therapy Diagnosis: Reduced mobility-otherInterventions Provided: Evaluation;Gait Training (53648)$ Evaluation-High (61346) Billed Units: 1 unitGait Training (65255) Treatment Minutes: 81 unitSkilled Intervention(s): Instruction in [...] and Moving Around Current Status (G8978): CL (0)Mobility: Walking and Moving Around Goal Status (G8979): CJ (0)Based on clinical assessment and the score on [...] ALLIED HEALTHon 02-14-2018 ALLIED HEALTH HNO ID: [id number] thor: Mariel Ervin (Rt)vice: RadiologyAuthor Type: TechnicianType: Allied HealthFiled: 02/14/2018 7:12 PMNote Text: Radiology Service Progress NotePATIENT NAME: Brenda McclainMRN: [id number] OF SERVICE: February 14, 2018TIME: 7:11 PMPATIENT IDENTITY VERIFICATION COMPLETED USING TWO (2) METHODS: Patientconfirmed name verbally and ID band matches..PATIENT GENDER DATA: Female. status: : NoBreastfeeding status: NO.PATIENT RELEVANT IMPLANT DATA REVIEWED: Not ApplicableRADIOLOGY DEPARTMENT: General X-ray: Exam(s) Completed: Abdomen X-RayAbdomenPERIPHERAL IV DATA: Not applicableSIGNED BY: Mike Ervin 2017 7:11 PM [facility] ANES Christianne 02-14-2018 ANES POST HNO ID: [id number] thor: Ryan Cruzervice: AnesthesiologyAuthor Type: AnesthesiologistType: Anesthesia PostOpFiled: 02/14/2018 8:37 PMNote Text:POST ANESTHESIA EVALUATION NOTESERVICE DATE: 02/14/2018SERVICE TIME: 8:36 PMDOB: 1950Vitals: 236BP: 125/80Pulse: 77Resp: 18Temp: 36.9 ?C (98.4 [...] 14, 2018 : 8:36 PM PAGER/CONTACT #: [phone] [facility] ANES PREOPon 02-14-2018 ANES PREOP HNO ID: [id number] thor: John TseeService: AnesthesiologyAuthor Type: AnesthesiologistType: Anesthesia PreOpFiled: 02/15/2018 7:09 AMNote Text:REGIONAL ANESTHESIOLOGY DAY OF SURGERY NOTEPATIENT NAME: Brenda McclainMRN: [id number]: 1950Procedure(s) (LRB):LAPAROSCOPIC RPR PARAESOHAGEAL HERNIA W/ FUNDOPLASTY W/ MESH (N/A)Surgeon(s):Monica Rodriguez) Tata (Elva) MunteanEstimated body mass index is [...] EVERY 4 HOURS ASNEEDEDInpatient medications reviewed in [facility].I have interviewed and examined the patient. I have reviewed the medicalrecord and/or the pre-anesthesia evaluation, pertinent labs, and testresults.Significant changes in the patient's condition since the History andPhysical, not otherwise documented in primary service progress notes: NoThis contains updated information obtained within 48 hours ofSurgery/Procedure.2 antibodies known on type and screen. Discussed with surgeon.SIGNATURE: Monica Cummings APRN.SKIN CARE INSTRUCTOR PATIENT NAME: Brenda McclainDATE: February 14, 2018 : 3:19 PM PAGER/CONTACT #: Normal [facility] APTTon 02-14-2018 aPTT Coag time (Bld) 21.8 s Low 23.0-32.4 [facility] Comment on above: Result Comment: Unfr [...] laboratory APTT reagent in use throughout the [facility]. Performed By: #### A BINTB ####[facility] [place], [place] [phone] BRIEF OP NOTon 02-14-2018 BRIEF OP NOT HNO ID: [id number] thor: Nataly Leeervice: General SurgeryAuthor Type: ResidentType: Brief Op NoteFiled: 02/14/2018 8:48 PMNote Text:BRIEF OP NOTELOG ID: [id number]/Procedure Date: 02/14/2018Incision/Procedure Start Time: 3:11 PMIncision Close/Procedure End Time: 7:58 PMSurgeon(s)/Proceduralist(s) and Hairspring Inspector(s):Surgeon(s) and Role: * Monica Rodriguez) Garsia - Primary * Nataly Peña - Resident - AssistingProcedure(s): Laparoscopic converted to open paraesophageal hernia repair,Kimmy fundoplication, splenectomyAnesthesia: GeneralFindings: Large hiatal hernia, injury to a blood vessel adjacent to thespleen requiring conversion to an open operation and splenectomyEstimated Blood Loss: 700 mlsSpecimens: SpleenPre-Op/Pre-Procedure Diagnosis: Paraesophageal herniaPost-Op/Post-Procedure Diagnosis: Paraesophageal hernia [K44.9SIGNATURE: Nataly Peña MD PATIENT NAME: Brenda McclainDATE: February 14, 2018 : 8:26 PM PAGER/CONTACT #: Normal [facility] Basic Metabolic Panlon 02-14 Anion gap 3 molar conc 12 mmol/L Normal 11-07 [facility] Comment on above: Performed By: #### A BINTB ####[facility] [address], [place] [phone] Calcium mass conc 8.3 mg/dL Low 8.5-10.5 [facility] Comment on above: Performed By: #### A BINTB ####[place] [address] [place] [phone] Chloride molar conc 105 mmol/L Normal 98-110 [facility] Comment on above: Performed By: #### A BINTB ####[address] [phone] CO2 molar conc 24 mmol/L Normal 23-32 [facility] Comment on above: Performed By: #### A BINTB ####[place] [phone] Creatinine mass conc 0.73 mg/dL Normal 0.70-1.40 [facility] Comment on above: Performed By: #### A BINTB ####[place] [phone] eGFR- Amer. >60 Normal >60 [facility] Comment on above: Performed By: #### A BINTB ####[place] [phone] GFR/1.73 sq M predicted among non-blacks MDRD vol rate/area (S/P/Bld) mL/min/{1.73_m2} Normal >60 [facility] Comment on above: Performed By: #### A BINTB ####[place] [phone] Glucose mass conc 176 mg/dL High 65-100 [facility] Comment on above: Performed By: #### A BINTB ####[place] [phone] Potassium molar conc 4.0 mmol/L Normal 3.5-5.0 [facility] Comment on above: Performed By: #### A BINTB ####[place] [phone] Sodium molar conc 141 mmol/L Normal 132-148 [facility] Comment on above: Performed By: #### A BINTB ####[place] [phone] Urea nitrogen mass conc 12 mg/dL Normal 8-25 [facility] Comment on above: Performed By: #### A BINTB ####[place] [phone] CBC and Differentialon 02-14 Abs Baso <0.03 Normal <0.11 [facility] Comment on above: Performed By: #### A BINTB ####[place] [phone] Abs [place] 0.58 k/uL Normal <0.87 [facility] Comment on above: Performed By: #### A BINTB ####[place] [phone] Abs Neut 9.32 k/uL High 1.45-7.50 [facility] Comment on above: Performed By: #### A BINTB ####[place] [phone] Basophils/100 WBC Auto (Bld) 0.0 % Normal [facility] Comment on above: Performed By: #### A BINTB ####[place] [phone] DTYPE Auto Diff Normal [facility] Comment on above: Performed By: #### A BINTB ####[place] [phone] Eosinophils Auto #/vol (Bld) 10*3/uL Normal <0.46 [facility] Comment on above: Performed By: #### A BINTB ####[place] [phone] Eosinophils/100 WBC Auto (Bld) 0.0 % Normal [facility] Comment on above: Performed By: #### A BINTB ####[place] [phone] Erythrocyte distribution width Auto Ratio (RBC) 16.8 % High 11.5-15.0 [facility] Comment on above: Performed By: #### A BINTB ####[place] [phone] Hematocrit Auto Volume Fraction (Bld) 34.4 % Low 36.0-46.0 [facility] Comment on above: Performed By: #### A BINTB ####[place] [phone] Hemoglobin mass conc (Bld) 11.2 g/dL Low 11.5-15.5 [facility] Comment on above: Performed By: #### A BINTB ####[place] [phone] Lymphocytes Auto #/vol (Bld) 0.79 10*3/uL Low 1.00-4.00 [facility] Comment on above: Performed By: #### A BINTB ####[place] [phone] Lymphocytes/100 WBC Auto (Bld) 7.4 % Normal [facility] Comment on above: Performed By: #### A BINTB ####[place] [phone] MCH Auto Entitic mass (RBC) 29.0 pG Normal 26.0-34.0 [facility] Comment on above: Performed By: #### A BINTB ####[place] [phone] MCHC Auto mass conc (RBC) 32.6 g/dL Normal 30.5-36.0 [facility] Comment on above: Performed By: #### A BINTB ####[place] [phone] MCV Auto Entitic volume (RBC) 89.1 fL Normal 80.0-100.0 [facility] Comment on above: Performed By: #### A BINTB ####[place] [address], [place] [phone] Monocytes/100 WBC Auto (Bld) 5.4 % Normal [facility] Comment on above: Performed By: #### A BINTB ####[address] [place], [place] [phone] Neutrophils/100 WBC Auto (Bld) 87.2 % Normal [facility] Comment on above: Performed By: #### A BINTB ####[address] [phone] Platelet mean volume Auto Entitic volume (Bld) 9.3 fL Normal 9.0-12.7 [facility] Comment on above: Performed By: #### A BINTB ####[address] [phone] Platelets Auto #/vol (Bld) 263 10*3/uL Normal 150-400 [facility] Comment on above: Performed By: #### A BINTB ####[address] [phone] RBC Auto #/vol (Bld) 3.86 10*6/uL Low 3.90-5.20 [facility] Comment on above: Performed By: #### A BINTB ####[address] [phone] WBC Auto #/vol (Bld) 10.69 10*3/uL Normal 3.70-11.00 [facility] Comment on above: Performed By: #### A BINTB ####[address] [phone] Confirm Blood Typeon 018 ABO/RH(D) Positive Normal [facility] Comment on above: Performed By: #### C ONABO ####[facility] [place], [place] [phone] HISTORY PHYSICALon 12-26-201 8 HISTORY PHYSICAL HNO ID: [id number] thor: Arsenio (Res) HaddadService: General SurgeryAuthor Type: [...] 77 BP: 125/80 Resp: 18 SpO2: 96 %Rison Miriam Readings: Not applicableRESPIRATORYMechanical Ventilation: No. Supplemental [...] appropriateSIGNATURE: Arsenio Lawler MD PATIENT NAME: Brenda Miller LesterayDATE: February 14, 2018 : 8:52 PM PAGER/CONTACT #: [phone] Normal [facility] Magnesiumon 02-14-2018 Magnesium mass conc 1.4 mg/dL Low 1.7-2.6 [facility] Comment on above: Performed By: #### A BINTB ####[facility] [place], [place] [phone] NURSING PROGon 02-14-2018 Protein mass conc HNO ID: [id number] Author: Juanita (Rn) HERMINIO Broussard Service: Nursing Author Type: Registered Nurse Type: Nursing Progress Note Filed: 02/14/2018 6:12 PM Note Text: converted to open procedure at 1720 Normal [facility] OPERATIVE NOon 02-14-2018 OPERATIVE NO HNO ID: [id number] thor: Monica Rodriguez) ChrisinService: General SurgeryAuthor Type: PhysicianType: Operative ReportFiled: 02/19/2018 3:10 PMNote Text:[facility] - Operative ReportBRENDA MCCLAIN LDOB: 8AGE: 68.SEX: FMRN: [id number] TYPE: IHOSP SVC: GENSLOCATION: [id number] PHYSICIAN: MADI Gamez NUMBER: [id number] OF SURGERY/PROCEDURE: 02/14/2018INCISION/PROCEDURE START TIME: 1511 hours.INCISION [...] entire sac was dissected out from themediastinum.A [place] drain was passed around the esophagus. Further dissection wascontinued using the Harmonic scalpel. All the adhesions of the sac tothe mediastinum were completely lysed. 2 cm to 3 cm length ofesophagus was noted to be easily inside the abdomen. Next, weproceeded with laparoscopic closure of the posterior ellen. Multipleinterrupted jwkotb-zz-tgbse stitches using silk was used to close [...] anycomplications was noted. Next, we passed the 58-Bulgarian bougie intothe stomach. A 360 degree wrap [...] without any evidence of any burning.Monica Garsia MDTA:[id number] #: [id number]: 02/14/2018 20:43:04 [facility] PT EDon 02-14-2018 PT ED HNO ID: [id number] thor: Haven (Rn) TRUDY Famervice: (none)Author Type: Registered NurseType: Patient EducationFiled: 02/14/2018 12:36 PMNote Text:PATIENT EDUCATION TOPIC: PROCEDURE / SURGERY: Pre-op Teaching:ProtocolsPATIENT NAME: Brenda Miller SarahiN: [id number] LOCATION: FV OR POOL/FV OR POOLREADINESS TO LEARNCOGNITIVE ABILITY: Alert and orientedMOTIVATION TO LEARN: EagerFAMILY SUPPORT: None - Unavailable/disinterestedINSTRU CTION PROVIDED TO: PatientPATIENT LEARNS BEST BY: Individual InstructionFACTORS AFFECTING LEARNING: NonePHYSICAL LIMITATIONS AFFECTING LEARNING: NoneLEARNING RESPONSEDIAGNOSIS: ADULT: Well AdultPATIENT/FAMILY RESPONSE: Verbalizes understanding of: JJD-YLLJRTYRFTBWGTSVRFYFR-Ebmqp ct action to take to follow pre-operative instructionsMETHOD OF INSTRUCTION: Individual instructionFOLLOW-UP PLAN: Complete - No need for follow-upPatient instructed to call with any further issuesINSTRUCTIONAL AIDS USED: NASUPPLEMENTAL MATERIAL PROVIDED TO PATIENT: NoneREFERRAL (RECOMMENDATION): NoneElectronically Signed By: Haven Fam RN Normal [facility] Phosphoruson 02-14-2018 Phosphate mass conc 3.2 mg/dL Normal 2.5-4.5 [facility] Comment on above: Performed By: #### A BINTB ####[facility] [place], [place] [phone] Protimeon 02-14-2018 INR Coag RelTime (Bld) 1.1 {INR} Normal 0.9-1.3 [facility] Comment on above: Result Comment: Danni min K Antagonist (VKA) Therapeutic Range: INR 2 to 3 (Target INR of 2.5)Note: For patients treated with VKA drugs, such as warfarin, the [employer] [employer] 2012 Guideline recommends [...] of 3).Nancy ROACH, et al. Chest 2012, 141:7S-47SNishtony RA, et al. [facility] 2017, 70: 252-289 Performed By: #### A BINTB ####[place] [id number] [place], [place] [phone] PT Sec 11.3 sec Normal 9.7-13.0 [facility] Comment on above: Performed By: #### A BINTB ####[facility] [address] [place], [place] [phone] SURGICAL PATHOLOGYon 018 SURGICAL PATHOLOGY [facility]: [id number] Physician: MONICA GARSIA MD FINAL DIAGNOSISSpleen, resection:- Benign-appearing spleen with focal granuloma formation.- Special stains (AFB, GMS) negative for organisms. - See comment. ED/srj 02/16/2018 COMMENTThe history of paraesophageal hernia repair is noted. Immunostains forkappa and lambda show polytypic plasma cells. There is no evidence ofmalignancy. Correlation with the clinical findings is suggested. Laboratory Developed Test (LDT) Disclaimer:Positive and negative controls stain appropriately. Performancecharacteristics of immunohistochemical, immunofluorescent and chromogenicin-situ hybridization tests have been determined by [facility] [place] ([facility]) patti manner consistent with CLIA requirements. One or more of these tests havenot been cleared or approved by the FDA. [facility] is regulated under CLIA asqualified to perform high-complexity testing. These tests are used forclinical purposes. They should not be regarded as investigational or forresearch. ED/srj 02/16/2018 Trevin Moraes M.D.(Electronic Signature) SPECIMEN SUBMITTEDA: SPLEEN CLINICAL DATAPARAESOPHAGEAL HERNIA GROSS DESCRIPTIONA. Received fresh designated spleen is a spleen that measures 9.2 x 6.0 x3.1 cm and weighs 124 grams. The splenic capsule is blue-gr. A capsulartear with associated subcapsular and parenchymal hemorrhage is presentmeasuring 7.0 x 2.5 cm. The cut surface of the spleen is dark red andslightly granular. Ambulatory Service Representative sections are submitted in two cassettes. WE/dcr 02/15/2018 Gross examination performed at [facility], [address] [place] [address]Patient ID #: [id number] of Report: 02/19/2018Date of Procedure: 02/14/2018Date of Receipt: 02/15/2018Submitted by: MONICA GARSIA MDLocation: [id number] interpretation performed at [facility], [address] [facility] [address]. Normal [facility] Comment on above: Performed By: #### C ONABO ####[facility] [place] [address] [phone] XR ABDOMEN 1V SUPINEon 02-14 XR ABDOMEN [...] on 02/14/2018 at 1916 hours.END OF IMPRESSIONTranscriptionist: PSCB Transcribe Date/Time: Feb 14 2018 7:14PDictated by : ASHWIN HERNANDEZ MDThis examination was interpreted and the report reviewed and electronically signed by: ASHWIN HERNANDEZ MD on Feb 14 2018 7:16PM [id number] Invalid Interpretation Code [facility] NURSING PROGon 02-08-2018 Protein mass conc HNO ID: [id number] thor: Chichi (Rn) Erwin, TRUDYervice: General SurgeryAuthor Type: Registered NurseType: Nursing Progress NoteFiled: 02/08/2018 11:06 AMNote Text:PACC Nurse Progress NoteHistory AND Physical:PACC Visit Date: 36-6-40Ejampwgl HANDP Date: N/AED visit Date: N/AOutside HANDP Scanned Date: N/ALabs Within Last 6 Months:CBC: Date 01-25-18BMP/CMP: Date 01-25-18TYPE AND SCREEN: Date 07-8-59Qxdpeb acceptable limits, results in EPICImaging Within Last 12 Months:Chest X-ray 1-08-78Zfpphzt scanned in EPIC 75-02-55Quzalgi Testing:EKG in last 12 Months: Yes: Date: [...] compatibility testing. Performed By: #### A BINTB ####[facility] [address] [place], [place] [phone] Physician Review Signed by Cynthia og MD ([id number]) [facility] Comment on above: Performed By: #### A BINTB ####[facility] [address] [place], [place] [phone] Type and SCR (30D)on 018 ABO/RH(D) Positive Normal [facility] Comment on above: Performed By: #### T SCR30 ####[place] [address] [place], [place] [phone] Antibody Identified Normal [facility] Comment on above: Result Comment: ANTI -K PRESENT.ANTI-E PRESENT. Performed By: #### T SCR30 ####[facility] [place], [place] [phone] HOSPon 01-18-2018 HOSP Patient:Brenda Mcclain LMRN: Height:5' [...] 36.3 % 01/25/2018 46.0 36.0Progress Notes ([facility]):Andra Mckeon RN 02/02/2018 12:25 PM SignedCall to patient to at [phone] to reschedule surgery date.Received VM. Contact number provided for return call.New date of surgery 02/14/2018Procedure: Laparoscopic PEH repairAndra Mckeon RN 02/02/2018 2:05 PM SignedReceived return call from patient.Accepted new date of surgery.Will edit [facility] paperwork to reflect new date of surgery.Progress Notes ([facility] [address]):Monica Garsia MD 01/21/2018 4:17 PM SignedAssessmentNEW FOREGUT PATIENTPATIENT NAME: Brenda McclainMRN: [id number] FOR CONSULT: Paraesophageal herniaREQUESTING PHYSICIAN: NAZIA TesfayeATE of SERVICE: 01/16/2018TIME of SERVICE: 6:08 PMPCP: Pam Villalobos [facility] Complaint: Abdominal pain, refluxHistory of present illness:Brenda [...] record and USmail.Monica Garsia, MDPrevious Version Normal [facility] Vital Signs Date Time Vital Sign Value Performing Clinician Facility 08-18-2022 14:26-0400 Body height 161.3 cm Sanjay Adkins MD Work Phone: [facility] 08-18-2022 14:26-0400 Body temperature 97.11 [degF] Sanjay Adkins MD Work Phone: [facility] 08-18-2022 14:26-0400 Body weight 82.46 kg Sanjay Adkins MD Work Phone: [facility] 08-18-2022 14:26-0400 Diastolic blood pressure 77 mm[Hg] Sanjay Adkins MD Work Phone: [facility] 08-18-2022 14:26-0400 Heart rate 78 /min Sanjay Adkins MD Work Phone: [facility] 08-18-2022 14:26-0400 Respiratory rate 16 /min Sanjay Adkins MD Work Phone: [facility] 08-18-2022 14:26-0400 SaO2% (BldA) [Mass fraction] 100 % Sanjay Adkins MD Work Phone: [facility] 08-18-2022 14:26-0400 Systolic blood pressure 117 mm[Hg] Sanjay Adkins MD Work Phone: [facility] 08-19-2021 14:12-0400 Body height 161.3 cm Sanjay Adkins MD Work Phone: [facility] 08-19-2021 14:12-0400 Body temperature 98.6 [degF] Sanjay Adkins MD Work Phone: [facility] 08-19-2021 14:12-0400 Body weight 79.83 kg Sanjay Adkins MD Work Phone: [facility] 08-19-2021 14:12-0400 Diastolic blood pressure 83 mm[Hg] Sanjay Adkins MD Work Phone: [facility] 08-19-2021 14:12-0400 Heart rate 91 /min Sanjay Adkins MD Work Phone: [facility] 08-19-2021 14:12-0400 Respiratory rate 16 /min Sanjay Adkins MD Work Phone: [facility] 08-19-2021 14:12-0400 SaO2% (BldA) [Mass fraction] 96 % Sanjay Adkins MD Work Phone: [facility] 08-19-2021 14:12-0400 Systolic blood pressure 133 mm[Hg] Sanjay Adkins MD Work Phone: [facility] 07-29-2021 08:45-0400 Blood Pressure Location Guan SALAM [facility] 07-29-2021 08:45-0400 Diastolic blood pressure 98 mm[Hg] Ugan SALAM [facility] 07-29-2021 08:45-0400 Heart rate 66 /min Guan SALAM [facility] 07-29-2021 08:45-0400 Respiratory rate 23 /min Guan SALAM [facility] 07-29-2021 08:45-0400 SaO2% (BldA) [Mass fraction] 96 % Guan SALAM [facility] 07-29-2021 08:45-0400 Systolic blood pressure 146 mm[Hg] Guan SALAM [facility] 07-29-2021 08:35-0400 Blood Pressure Location Guan SALAM [facility] 07-29-2021 08:35-0400 Diastolic blood pressure 97 mm[Hg] Guan SALAM [facility] 07-29-2021 08:35-0400 Heart rate 71 /min Guan SALAM [facility] 07-29-2021 08:35-0400 Respiratory rate 14 /min Guan SALAM [facility] 07-29-2021 08:35-0400 SaO2% (BldA) [Mass fraction] 97 % Guan SALAM [facility] 07-29-2021 08:35-0400 Systolic blood pressure 147 mm[Hg] Guan SALAM [facility] 07-29-2021 08:30-0400 Blood Pressure Location Guan SALAM [facility] 07-29-2021 08:30-0400 Diastolic blood pressure 105 mm[Hg] Guan SALAM [facility] 07-29-2021 08:30-0400 Heart rate 67 /min Guan SALAM [facility] 07-29-2021 08:30-0400 Respiratory rate 14 /min Guan SALAM [facility] 07-29-2021 08:30-0400 SaO2% (BldA) [Mass fraction] 96 % Guan SALAM [facility] 07-29-2021 08:30-0400 Systolic blood pressure 140 mm[Hg] Guan SALAM [facility] 07-29-2021 08:20-0400 Body temperature 98.06 [degF] Guan SALAM [facility] 07-29-2021 08:14-0400 Respiratory rate 18 /min Guan SALAM [facility] 07-29-2021 08:00-0400 Respiratory rate 1 /min Guan SALAM [facility] 07-29-2021 07:50-0400 Respiratory rate 6 /min Guan SALAM [facility] 07-29-2021 07:12-0400 Body temperature 97.7 [degF] Guan SALAM [facility] 06-09-2021 10:29-0400 Diastolic blood pressure 91 mm[Hg] Guan SensulinAM [facility] 06-09-2021 10:29-0400 Heart rate 76 /min Guan SALAM [facility] 06-09-2021 10:29-0400 Systolic blood pressure 148 mm[Hg] Guan SALAM [facility] Encounters Encounter Date Encounter Type Care Provider Facility Start: 01-16-2023 End: 01-16-2023 ambulatory PAM VILLALOBOS Not Available Start: 2023 End: 2023 Emergency department patient visit [place] Facility:[facility] Start: 08-24-2022 End: 08-25-2022 ambulatory Kamron Villalobos Facility:[facility] Start: 08-24-2022 End: 08-24-2022 Patient encounter procedure Kamron Villalobos [facility] Start: 08-18-2022 End: 08-18-2022 ambulatory PAM VILLALOBOS Facility:[facility] Start: 08-18-2022 End: 08-18-2022 ambulatory Sanjay Adkins MD Work Phone: Hematology/Oncology Comment on above: 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); History of iron deficiency Start: 08-18-2022 End: 08-18-2022 Patient encounter procedure Sanjay Adkins MD Work Phone: [place] Start: 05-18-2022 End: 05-19-2022 ambulatory SELF REFERRAL Facility:[facility] Start: 05-18-2022 End: 05-18-2022 Patient encounter procedure SELF REFERRAL [facility] Start: 12-17-2021 End: 12-17-2021 Patient encounter procedure Pam Villalobos [facility] Start: 08-26-2021 Telephone encounter Andra Anders RN Hematology/Oncology Comment on above: Results Start: 08-20-2021 Telephone encounter Andra Chairez RN Hematology/Oncology Comment on above: Results Start: 08-19-2021 End: 08-19-2021 ambulatory Sanjay Adkins MD Work Phone: Hematology/Oncology Comment on above: Iron deficiency anem ia due to chronic blood loss (Primary Dx); Paraesophageal hernia; Monoclonal gammopathy of undetermined significance Start: 08-19-2021 End: 08-19-2021 Patient encounter procedure Sanjay Adkins MD Work Phone: [place] Start: 08-18-2021 End: 08-18-2021 Patient encounter procedure JOHANNE LINDSAY [facility] Start: 07-29-2021 End: 07-29-2021 Patient encounter procedure Guan SALAM [facility] Start: 06-09-2021 End: 06-09-2021 Patient encounter procedure Guan SALAM [facility] Start: 02-15-2021 End: 05-18-2021 Patient encounter procedure Pam Villalobos [facility] Start: 02-14-2018 End: 02-17-2018 Evaluation and management of inpatient MONICA RODRIGUEZ) [facility] Procedures Date Procedure Procedure Detail Performing Clinician Start: 07-29-2021 Esophagogastroduodenoscopy Guan SALAM Start: 10-29-2019 Total knee replacement Pam Villalobos Comment on above: ROBOT ASSISTED Start: 09-30-2019 Cataract extraction and insertion of intraocular lens Pam Villalobos Comment on above: CATARACT EXTRACTION W/ INTRAOCULAR LENS IMPLANTATION Start: 09-02-2019 Cataract extraction and insertion of intraocular lens Pam Villalobos Comment on above: right Start: 08-16-2019 Adult depression screening assessment Sanjay Adkins MD Work Phone: Start: 01-25-2018 Antibody screen GREGGLev GARSIA Comment on above: Performed By: #### TSCR30 ####[place] [id number] [place], [place] [phone] Colonoscopy Pam Villalobos Elbow region structu re (body structure) Pam Villalobos Esophageal hiatus hernia repair Pam Villalobos Esophagogastroduodenoscopy P eter Wilfredo Hemorrhoids (disorder) Pam Villalobos Hysterectomy Pam Villalobos knee scope Pam Villalobos Operation on spleen Pam [email or web address] a Plan of Treatment Date Care Activity Detail Author Start: 08-18-2025 DIABETES SCREEN DIABETES SCREEN [facility] Start: 08-19-2024 DIABETES SCREEN DIABETES SCREEN [facility] Start: 08-19-2023 BP CONTROLLED (<130/80) BP CONTROLLE D (<130/80) [facility] Start: 04-16-2023 MENINGOCOCCAL CONJUG ATE (3 - Risk 2-dose series) MENINGOCOCCAL CONJUGATE (3 - Risk 2-dose series) [facility] Start: 08-18-2022 End: 10-18-2022 MONOCLONAL PROTEIN, SERUM (BLOOD) [facility] Work Phone: Comment on above: Expected: 08/18/2022 , Expires: 10/18/2022 Start: 08-18-2022 End: 10-18-2022 PROT ELECT SERUM WITH DARÍO AND INTERP [facility] Work Phone: Comment on above: Expected: 08/18/2022 , Expires: 10/18/2022 Start: 02-20-2022 ADVANCE DIRECTIVE DISCUSSION ADVANCE DIRECTIVE DISCUSSION [facility] Start: 02-20-2022 DEPRESSION ASSESSMENT DEPRESSION ASS ESSMENT [facility] Start: 10-21-2021 Influenza vaccination INFLUENZA (#1) [facility] Start: 08-19-2021 End: 10-19-2021 Ferritin [Mass/volume] in Serum or Plasma [facility] Work Phone: Comment on above: Expected: 08/19/2021 , Expires: 10/19/2021 Start: 08-19-2021 End: 10-19-2021 Iron and Iron binding capacity panel - Serum or Plasma [facility] Work Phone: Comment on above: Expected: 08/19/2021 , Expires: 10/19/2021 Start: 03-30-2021 COVID-19 VACCINE (4 - Booster for Pfizer series) COVID-19 VACCINE (4 - Booster for Pfizer series) [facility] Start: 02-20-2021 ADVANCE DIRECTIVE DISCUSSION ADVANCE DIRECTIVE DISCUSSION [facility] Start: 08-15-2020 Adult depression screening assessment DEPRESSION SCREENING [facility] Start: 04-16-2019 PNEUMOCOCCAL: 65+ (3 - PCV) PNEUMOCOCCAL: 65+ (3 - PCV) [facility] Start: 07-31-2013 SHINGRIX VACCINE (1 of 2) SHINGRIX VACCINE (1 of 2) [facility] Start: 01-07-2013 BONE DENSITY BONE DENSITY [facility] Start: 01-07-1993 COLOGUARD (FIT-DNA) COLOGUARD (FIT-D NA) [facility] Start: 01-07-1993 Colonoscopy COLONOSCOPY [facility] Start: 01-07-1993 COLORECTAL CANCER SCREENING COLORECTAL CANCER SCREENING [facility] Start: 01-07-[address] [facility] Start: 01-07-1993 FECAL OCCULT BLOOD FECAL OCCULT BLOO D [facility] Start: 01-07-1993 LIPID SCREEN LIPID SCREEN [facility] Start: 01-07-1993 SIGMOIDOSCOPY SIGMOIDOSCOPY [facility] Start: 1988 Mammography MAMMOGRAM [facility] Start: 01-07-1967 Urine microalbumin profile DTAP,TDAP,TD (1 - Tdap) [facility] Start: 01-07-1966 ANNUAL PCP TEAM NETWORK ARCHITECT MANAGER JAS DISEASE VISIT ANNUAL PCP TEAM CHRONIC DISEASE VISIT [facility] Start: 01-07-1966 BP CONTROLLED (<130/80) BP CONTROLLE D (<130/80) [facility] Start: 01-07-1966 HEPATITIS C SCREENING HEPATITIS C SC NELDAJESSICA [facility] Start: 01-07-1958 MENINGOCOCCAL B: Consider based on risk (1 of 4 - Increased Risk Bexsero 2-dose series) MENINGOCOCCAL B: Consider based on risk (1 of 4 - Increased Risk Bexsero 2-dose series) [facility] Immunizations Immunization Date Immunization Notes Care Provider Fa cility 04-16-2020 COVID-19 vaccine, ag e 12+ yr (PFIZER-BIONTECH - PURPLE TOP) Sanjay Adkins MD Work Phone: [facility] 03-27-2020 COVID-19 vaccine, ag e 12+ yr (PFIZER-BIONTECH - PURPLE TOP) Sanjay Adkins MD Work Phone: [facility] 04-16-2018 meningococcal polysaccharide (groups A, C, Y and W-135) diphtheria toxoid conjugate vaccine (MCV4P) Sanjay Adkins MD Work Phone: [facility] 04-16-2018 pneumococcal polysaccharide vaccine, 23 valent Sanjay Adkins MD Work Phone: [facility] 02-17-2018 haemophilus influenz ae type b vaccine, PRP-T conjugate Sanjay Adkins MD Work Phone: [facility] 02-17-2018 influenza, high dose seasonal, preservative-free Sanjay Adkins MD Work Phone: [facility] 02-17-2018 meningococcal polysaccharide (groups A, C, Y and W-135) diphtheria toxoid conjugate vaccine (MCV4P) Sanjay Adkins MD Work Phone: [facility] 02-17-2018 pneumococcal polysaccharide vaccine, 23 valent Sanjay Adkins MD Work Phone: [facility] 06-05-2013 zoster vaccine, live Sanjay gibson MD Work Phone: [facility] 02-18-2009 novel influenza-H1N1 -09, preservative-free, injectable Sanjay Adkins MD Work Phone: [facility] Payers Date Payer Category Payer Unknown [employer]AN[employer] DICARE SUPPLEMENT [id number] 2018-Present [phone] [address] [place] [address] Indemnity [id number] 2018 Unknown VANDANA [employer] DICARE SUPPLEMENT [id number] 2018-Present [phone] [address] [place] [id number] Indemnity [id number] 2018 Unknown [id number] 2012 Medicare MEDICARE MEDICAR E A AND B [id number] 2012-Present [phone] [place] [address] Medicare [id number] 2012 Medicare MEDICARE MEDICAR E A AND B [id number] 2012-Present [phone] [place] [address] Medicare [id number] 2012 Medicare [id number] 1948 Unknown [id number] 1948 Unknown [id number] 1948 Unknown [id number] 1948 Unknown [id number] Social History Date Type Detail Facility Start: 01-07-2020 End: 06-09-2021 Tobacco smoking status Never smoked tobacco (finding) [facility] Sex Assigned At Female [facility] Start: 08-19-2021 End: 08-18-2022 Alcohol intake Current drinker of alcohol (finding) [facility] Start: 01-25-2018 History SDOH Alcohol Comment one drink at the holidays at times [facility] Start: 1950 Sex Assigned At Female [facility] Start: 08-09-2021 End: 08-19-2021 Exposure to SARS-CoV-2 (event) Not sure [facility] Start: 08-18-2022 Tobacco use and exposure Smokeless tobacco non-user [facility] NEGATED: Highlighted rowStart: NINF History of tobacco use Passive smoker [facility] Medical Equipment Procedure Code Equipment Code Equipment Origin al Text Equipment Identifier Dates [id number] FDA Start: 09-02-2019 [id number] FDA Start: 09-30-2019 {[id number] FDA Start: 10-29-2019 Mesh Bio-A Synth etic 10x7cm Surgical Reinforcement Hernia Repair - [id number] Start: 02-14-2018 Clinical Notes 07-29-2021 to 08-18-2022 Sanjay Adkins MD - 08/18/2022 7:57 AM EDTTelephone Encounter - Andra Anders RN - 08/26/2021 3:32 PM EDTTelephone Encounter - Andra Anders RN - 08/26/2021 3:30 PM EDT Note Date & Type Note Facility 08-18-2022 Note HNO ID: [id number] Author: Sanjay Adkins MD Service: ? Author Type: Physician Type: Progress Notes Filed: 08/19/2022 9:47 AM Note Text: PATIENT NAME: Brenda Mcclain DATE: 08/18/2022 PRIMARY CARE PHYSICIAN: Dr. Pam Villalobos OTHER PHYSICIANS: Dr. Garsia, Dr. PocDr. Pasquale bhakta Portions of this encounter note have been [...] def (more content not included)... [facility] 08-18-2022 History of Presen t illness Narrative [...] ulcers. The patient subsequently underwent surgery at [facility] (Dr. Garsia) on 02/14/2018. Her surgery [...] Sanjay Adkins MD documented in this encounter [facility] 08-26-2021 Miscellaneous Notes Call placed to pt. No answer. Left message informing pt of Dr Adkins's message and to return call if any questions/concerns. Andra Anders RN ----- Message from Sanjay Adkins MD sent at 08/24/2021 4:47 PM EDT ----- Please inform the patient that her protein analysis is stable. We will continue monitoring as planned, and see her back as scheduled. ALFONSO Hutton documented in this encounter [facility] 08-20-2021 Miscellaneous Notes Informed pt of Dr Adkins's message. Pt verbalized understanding and denies further needs at this time. Results sent to Dr Villalobos. Andra Chairez RN ----- Message from Sanjay Adkins MD sent at 08/19/2021 4:53 PM EDT ----- Please inform the patient her kidney tests are up slightly and potassium down. It may be due to her water pills or other medicines. Best if she contact her PCP for follow-up. I will see her back as scheduled. ALFONSO Hutton documented in this encounter [facility] 08-19-2021 Nurse Note Patient states that she is very tired. Deisy Andujar MA documented in this encounter [facility] 08-19-2021 History of Presen t illness [...] ulcers. The patient subsequently underwent surgery at [facility] (Dr. Garsia) on 02/14/2018. Her surgery [...] CC: Dr. Giordano documented in this encounter [facility] 07-29-2021 Evaluation + Plan note Extrac rashawn from: Title:ANES POSTOP MAC/GEN NOTE Author:Fernando Chaparro JR Date:07/29/21 Plan Transfer/ Discharge: Patient can be discharged from PACU when criteria met. Condition good. Extracted from: Title:ANES PREOP ENDO NOTE Author:Miladys Huizar JR, DO Date:07/29/21 Plan [place] [employer] (ASA) physical status classification: Class II. Anesthetic Preoperative Plan Anesthesia: Monitored anesthesia care and general anesthesia if required.. Anesthetic plan, risks, benefits, and alternatives discussed with the patient and/or family. Pt. and/or family present and agree to proceed as planned.. Discussed the importance of abstaining from tobacco products, and offered counseling if desired.. [facility]06-09-2022 Hospital Discharge instructions Patient Education 07/29/2021 08:24:23 [...] including vitamins, herbs, eye drops, creams, and guqx-wpw-jdjrtbk medicines. Any problems you or family members [...] home. Follow these instructions at home: Take dlgi-pna-edupoax and prescription medicines only as told by [...] 03/30/2006 Document Revised: 01/19/2018 Document Reviewed: 12/12/2017 [employer] Patient Education 2020 [employer] 07/29/2021 08:24:23 Endoscopy, Care After Procedure [facility]) Endoscopy Care After Procedure Please read the instructions outlined below and refer to this sheet in the next few weeks. These discharge instructions provide you with general information on caring for [facility] Your doctor may also give you [...] blood. Document Released: 09/20/2004 Document Re-Released: 07/31/2006 [facility] [employer] Follow Up Care 06/09/2021 11:21:23 With:Roge OWEN Address: [address] [place] [address] [place] [phone] Business (1) When:1 to 2 weeks Comments:Call for any problems. [facility] Future Appointments Appointment Date:06/09/2021 10:00:00 AM Scheduled Provider:Roge OWEN MD Location:[facility] App[facility]ment [facility]:BAD[facility] Future Appointments Appointment Date:07/29/2021 08:00:00 AM Scheduled Provider: Location:[facility] Appointment Type:Surgery FT [facility] Evaluation note* Diagnosis Iron deficiency anemia due to chronic blood loss- Primary Iron deficiency anemia secondary to blood loss (chronic) Paraesophageal hernia Diaphragmatic hernia without mention of obstruction or gangrene Monoclonal gammopathy of undetermined significance Monoclonal paraproteinemia [facility] Diagnosis Monoclonal gammopathy of undetermined significance- Primary Monoclonal paraproteinemia History of iron deficiency Personal history of diseases of blood and blood-forming organs documented in this encounter [facility] course Narrative No data available for this section [facility] No data available for this section [facility] No data available for this section [facility] Summary Purpose Family History No Family History Records FoundNo Family History Records FoundNo Family History Records FoundNo Family History Records FoundNo Family History Records Found Advance Directives No Advanced Directives Records FoundDocuments on File Type Date Recorded Patient Ambulatory Service Representative Expl anation Advance Directive(s) Advance Directive(s) 02/14/2018 11:56 AM Hospital Course Note HNO ID: [id number]: Leif anders (Res) MontelioneService: General SurgeryAuthor Type: ResidentType: Discharge SummariesFiled: 02/18/2018 8:30 AMNote Text:DISCHARGE SUMMARYPATIENT NAME: Brenda Mcclain ADMISSION DATE: 02/14/2018MRN: [id number] DISCHARGE DATE: 02/17/2018Attending: Monica Rodriguez) AdyReason for Hospitalization: elective repair of paraesophageal herniaActive [...] hiatal hernia 10cm and Schatzki ringesophogram 11/20/2017 ([facility])Hospital Course:The patient was admitted to the hospital with the above history. T (more content not included)... Additional Source Comments INFORMATION SOURCE (unrecogn ized section and content) DATE CREATED AUTHOR 02/19/2018 [facility] DATE CREATED AUTHOR AUTHOR'S ORGANIZ ATION 04/14/2021 [facility] DATE CREATED AUTHOR AUTHOR'S ORGANIZ ATION 01/09/2023 [facility] DATE CREATED AUTHOR AUTHOR'S ORGANIZ ATION 01/17/2023 [facility] EPIC DATE CREATED AUTHOR AUTHOR'S ORGANIZ ATION 03/07/2023 [facility] Care Team (unrecognized sect ion and content) Roll Scale Worker Relationship Specialty Start Date End Date Pam Villalobos PCP - General 12/07/07 Andra Mckeon (Rn), RN [id number] [place] [address] Specialty Recreational Aide General Surgery 01/24/18 Roll Scale Worker Relationship Specialty Start Date End Date Pam Villalobos PCP - General 12/07/07 Andra Mckeon (Rn), [place] [id number] [place] [address] Specialty Recreational Aide General Surgery 01/24/18 Roll Scale Worker Relationship Specialty Start Date End Date Pam Villalobos PCP - General 12/07/07 Andra Mckeon (Rn), RN [id number] [place] [address] Specialty Recreational Aide General Surgery 01/24/18 Source Comments (unrecognize d section and content) In the event this informatio n is protected by the Federal Confidentiality of Alcohol and Drug Abuse Patient Records regulations: The Federal rules restrict any use of the information to criminally investigate or prosecute any alcohol or drug abuse patient.[facility] the event this information is protected by the Federal Confidentiality of Alcohol and Drug Abuse Patient Records regulations: The Federal rules restrict any use of the information to criminally investigate or prosecute any alcohol or drug abuse patient.[facility] the event this information is protected by the Federal Confidentiality of Alcohol and Drug Abuse Patient Records regulations: The Federal rules restrict any use of the information to criminally investigate or prosecute any alcohol or drug abuse patient.[facility] the event this information is protected by the Federal Confidentiality of Alcohol and Drug Abuse Patient Records regulations: The Federal rules restrict any use of the information to criminally investigate or prosecute any alcohol or drug abuse patient.[facility] Reason for Visit (unrecogniz ed section [...] BE BASED ON THE PRIMARY CLINICAL RECORDS. [facility] [email or web address] [facility]. provides no warranty or guarantee of the accuracy or completeness of information in this document.
== END 2023-03-09 09:16 | disposition home or self-care (01) ==
LOC: VC 09:15
PROVIDERS: PCP Radiology Diagnostic Radiology; Visit Provider Radiology Diagnostic Radiology
DX: I83.813 Varicose veins of bilateral lower extremities with pain (principal)
CPT/HCPCS: 36471

== ENCOUNTER 2023-03-16 08:47 | Outpatient (OUT) | payer MEDICARE, BC, SELFPAY ==
--- OUTSIDE RECORDS SUMMARY | 2023-03-16 08:51 | XMS_ITS | CCD ---
Author Name Unknown Address [address] [place] [address] Organization [facility] Care Team Providers Care Client Professional Name Role Phone MONICA GARSIA () Unavailable Unavailable MONICA GARSIA) Unavailable Unavailable Pam Villalobos Primary Care Physician [phone] Yohana Rodarte Unavailable Unavailable Blanca Stratton Unavailable Unavailable Pam Villalobos Primary Care Provider Linda DIETZ, Andra Ulrich (Rn) Unavailable Unavailab Pam Reddy Primary Care Provider Linda DIETZ, Andra Ulrich (Rn) Unavailable Unavailab le REFERRAL, SELF Attending Unavailable REFERRAL, SELF Referring Unavailable Pam iVllalobos Consulting Unavailable REFERRAL, SELF Admitting Unavailable MD [...] Propensity to adverse reactions (disorder) 8 Rash [facility] (6 sources) Cefuroxime; Translations: [CEFUROXIME AXETIL] Drug Allergy 8 GI Upset [facility] Repository (6 sources) Clindamycin; Translations: [CLINDAMYCIN HCL] Drug Allergy 8 Intolerance [facility] Repository (8 sources) Adhesive Tape; Translations: [Adhesive tape] Allergy to substance [facility] Medications Current Medications Medication Drug Class(es) Dates Sig (Normalized) Sig (Original) acetaminophen 500 mg oral tablet (7 sources) Start: 11-16-2017 take 500 mg by mouth every six hours as needed for pain Tylenol 500 mg, Oral, q6hr, PRN as needed for pain, Refills(s) 0 Start Date: 11/16/17 Status: Ordered [id number] 200 actuat albuterol 0.09 mg/actuat metered dose [...] BIDPC, # 60 tab(s), Refills(s) 0, Pharmacy: [email or web address], 161.5, cm, 10/09/19 6:34:00 EDT, Height/Length Dosing, 80.1, kg, 10/11/19 12:14:00 EDT, Weight Dosing Start Date: 10/29/19 Status: Ordered Start: 10-29-2019 Ecotrin 325 mg Tab-EC 325 mg = 1 tab(s), Oral, BIDPC, # 60 tab(s), Refills(s) 0, Pharmacy: [email or web address], 161.5, cm, 10/09/19 6:34:00 EDT, Height/Length [...] 11/17/17 Status: Ordered take 1 capsule by [facility] every six hours as needed diphenhydrAMINE (BENADRYL) [...] constipation, # 40 cap(s), Refills(s) 0, Pharmacy: [email or web address], 161.5, cm, 10/09/19 6:34:00 EDT, Height/Length [...] day(s), # 90 cap(s), Refills(s) 1, Pharmacy: [email or web address], 161, cm, 07/29/21 7:13:00 EDT, Height/Length Dosing, 84, kg, 07/29/21 7:13:00 EDT, Weight Dosing Start Date: 09/23/21 Stop Date: 03/22/22 Status: Ordered Start: 06-09-2021 take 1 capsule by [facility] once daily omeprazole 40 mg Cap-DR 40 mg = 1 cap(s), Oral, Daily, # 30 cap(s), Refills(s) 2, Pharmacy: [email or web address], 161, cm, 06/09/21 10:32:00 EDT, Height/Length Dosing, 84, kg, 06/09/21 10:32:00 EDT, Weight Dosing Start Date: 06/09/21 Status: Ordered Comment on above: Take 40 mg by mouth once daily. omeprazole 40 mg Cap-DR (2 sources) Start: take 1 capsule by mouth once daily omeprazole 40 mg Cap-DR 40 mg = 1 cap(s), Oral, Daily, # 30 cap(s), Refills(s) 2, Pharmacy: [email or web address], 161, cm, 06/09/21 10:32:00 EDT, Height/Length Dosing, 84, kg, 06/09/21 10:32:00 EDT, Weight Dosing Start Date: 06/09/21 Status: Ordered ondansetron 4 mg oral tablet (7 sources) Serotonin-3 Receptor Antagonist Start: take 4 mg by mouth twice daily as needed for nausea Zofran 4 mg, Oral, BID, PRN as needed for nausea/vomiting, Refills(s) 0 Start Date: 12/09/19 Status: Ordered polyethylene glycol 3350 62123 mg powder for oral solution (6 sources) [...] pain Dx: M17.12, Z96.642 Duration: 7 days, [email or web address], 161.5, cm, 10/09/19 6:34:00 EDT, Height/Length Dosing, 80.1, kg, 10/11/19 12... Start Date: 10/29/19 Status: Ordered Start: 10-29-2019 Percocet 325 m g-5 mg Tab See Instructions, as needed for pain, 40 tab(s), Refill(s) 0, 1-2 orally every 4-6hrs as needed for pain Dx: M17.12, Z96.642 Duration: 7 days, [facility], 161.5, cm, 10/09/19 6:34:00 EDT, [...] Candido 03-06-2023 CNPN Telephone (HEMASA) LESTERBRENDA VALLE ([id number]) 1950 F Date Time Provider Department 03/06/23 MAYA GUIDRY During your visit today, we [...] Status:Closed by SANJAY ADKINS on 03/06/23 Normal [facility] Auto Diffon 2023 Basophils/100 WBC (Bld) 0.4 % Normal 0.0-2.0 [facility] Comment on above: Order Comment: Order Added by Discern Expert. Performed By: #### 1 [id number], 2368468, 9548903, 2009112 #### [facility] [address] [place] [address] Basophils/Leukocy maury Auto (Bld) [Pure # fraction] 0.0 E9/L Normal 0.0-0.2 [facility] Comment on above: Order Comment: Order Added by Discern Expert. Performed By: #### 1 0145100, 9952791, 3573336, 1190112 #### [facility] [address] [place] [address] Eosinophils/100 WBC (Bld) 5.9 % Normal 0.0-8.0 [facility] Comment on above: Order Comment: Order Added by Discern Expert. Performed By: #### 1 9819694, 3045328, 0663009, 7410823 #### [facility] [address] [place] [address] Eosinophils/Leuko cytes Auto (Bld) [Pure # fraction] 0.4 E9/L Normal 0.0-0.5 [facility] Comment on above: Order Comment: Order Added by Discern Expert. Performed By: #### 1 9887617, 2680049, 2282295, 9716412 #### [facility] [address] [place] [address] Lymphocytes/100 WBC (Bld) 30.4 % Normal 14.0-50.0 [facility] Comment on above: Order Comment: Order Added by Discern Expert. Performed By: #### 1 7016298, 8032674, 4101729, 0370191 #### [facility] [address] [place] [address] Lymphocytes/Leuko cytes Auto (Bld) [Pure # fraction] 2.0 E9/L Normal 1.0-4.0 [facility] Comment on above: Order Comment: Order Added by Discern Expert. Performed By: #### 1 9351999, 4493361, 2213172, 7264954 #### [facility] [address] [place] [address] Monocytes/100 WBC (Bld) 11.1 % Normal 4.0-14.0 [facility] Comment on above: Order Comment: Order Added by Discern Expert. Performed By: #### 1 4971715, 6971063, 3572062, 7343977 #### [facility] [address] [place] [address] Monocytes/Leukocy maury Auto (Bld) [Pure # fraction] 0.7 E9/L Normal 0.2-1.0 [facility] Comment on above: Order Comment: Order Added by Discern Expert. Performed By: #### 1 3253087, 3669309, 0363358, 6087026 #### [facility] [address] [place] [address] Neutrophils/100 WBC (Bld) 52.2 % Normal 36.0-75.0 [facility] Comment on above: Order Comment: Order Added by Discern Expert. Performed By: #### 1 3016561, 5725343, 7605209, 2165008 #### [facility] [address] [place] [address] Neutrophils/Leuko cytes Auto (Bld) [Pure # fraction] 3.5 E9/L Normal 2.0-7.5 [facility] Comment on above: Order Comment: Order Added by Discern Expert. Performed By: #### 1 1066634, 7559982, 3950670, 3148667 #### [facility] [address] [place] [address] CBC w/ Auto Diffon Erythrocyte distribution width (RBC) [Ratio] 13.0 % Normal 10.9-14.2 [facility] Comment on above: Performed By: #### 1 2933950, 0815126, 5232051, 8641360 #### [facility] [address] [place] [address] Hematocrit (Bld) [Volume fraction] 42.3 % Normal 34.0-46.0 [facility] Comment on above: Performed By: #### 1 6236069, 3966643, 4171171, 5329182 #### [facility] [address] [place] [address] Hemoglobin (Bld) [Mass/Vol] 14.3 g/dL Normal 12.0-16.0 [facility] Comment on above: Performed By: #### 1 1677908, 9846725, 3362954, 1457552 #### [facility] [address] [place] [address] MCH (RBC) [Entitic mass] 31.7 pg Normal 27.0-34.0 [facility] Comment on above: Performed By: #### 1 8537180, 6041506, 9912890, 7055259 #### [facility] [address] [place] [address] MCHC (RBC) [Mass/Vol] 33.8 g/dL Normal 31.4-36.0 [facility] Comment on above: Performed By: #### 1 2688947, 2897393, 6729701, 4395522 #### [facility] [address] [place] [address] MCV (RBC) [Entitic vol] 93.7 fL Normal 80.0-100.0 [facility] Comment on above: Performed By: #### 1 1519694, 6356878, 1387200, 4651874 #### [facility] [address] [place] [address]52 Platelet mean volume (Bld) [Entitic vol] 8.2 fL Normal 6.4-10.8 [facility] Comment on above: Performed By: #### 1 9377082, 1542889, 8268937, 8664207 #### [facility] [address] [place] [address] 11647 Platelets (Bld) [#/Vol] 407.0 E9/L Normal 150.0-500.0 [facility] Comment on above: Performed By: #### 1 2458588, 8941640, 6774913, 5176679 #### [facility] [address] [place] [address]5438 RBC (Bld) [#/Vol] 4.5 E12/L Normal 4.3-5.9 [facility] Comment on above: Performed By: #### 1 9422319, 9269658, 7004086, 8926875 #### [facility] [address] [place] [address] WBC corrected for nucl RBC Auto (Bld) [#/Vol] 6.6 E9/L Normal 4.0-11.0 [facility] Comment on above: Performed By: #### 1 3844076, 7418099, 0501083, 7324223 #### [facility] [address] [place] [address] CMPon 2023 Albumin [Mass/Vol] 3.7 g/dL Normal 3.3-5.0 [facility] Comment on above: Performed By: #### 1 3576212, 9607954, 0742321, 3648883 #### [facility] [address] [place] [address] Albumin/Globulin (S) [Mass conc ratio] 0.9 Low 1.1-2.2 [facility] Comment on above: Performed By: #### 1 7052161, 3004550, 8207884, 0508558 #### [facility] [address] [place] [address] ALP [Catalytic activity/Vol] 108 Int._Unit/L High 21-98 [facility] Comment on above: Performed By: #### 1 8166852, 3094707, 0155736, 2361722 #### [facility] [address] [place] [address] ALT No additional P-5'-P [Catalytic activity/Vol] 18 Int._Unit/L Normal 6-46 [facility] Comment on above: Performed By: #### 1 9386121, 0113371, 4886920, 8222813 #### [facility] [address] [place] [address] AST [Catalytic activity/Vol] 20 Int._Unit/L Normal 5-43 [facility] Comment on above: Performed By: #### 1 0530217, 8208868, 5214288, 1887512 #### [facility] [address] [place] [address] Bilirubin [Mass/Vol] 0.7 mg/dL Normal 0.0-1.1 [facility] Comment on above: Performed By: #### 1 2429555, 0756372, 3174235, 5049715 #### [facility] [address] [place] [address] Creatinine [Mass/Vol] 1.0 mg/dL Normal 0.5-1.3 [facility] Comment on above: Performed By: #### 1 8015759, 4387315, 1273271, 1369264 #### [facility] [address] [place] [address] Globulin (S) [Mass/Vol] 4.1 g/dL High 1.4-4.0 [facility] Comment on above: Performed By: #### 1 1893159, 0907032, 7519897, 1506545 #### [facility] [address] [place] [address] Protein [Mass/Vol] 7.8 g/dL Normal 6.0-7.8 [facility] Comment on above: Performed By: #### 1 5637687, 8019142, 0611080, 6402215 #### [facility] [address] [place] [address] Urea nitrogen [Mass/Vol] 14 mg/dL Normal 5-21 [facility] Comment on above: Performed By: #### 1 5916733, 2180558, 5111396, 1153928 #### [facility] [address] [place] [address] Urea nitrogen/Creatini ne [Mass ratio] 14 No Units Normal 10-20 [facility] Comment on above: Performed By: #### 1 1011415, 0072405, 0066572, 6843570 #### [facility] [address] [place] [address] Anion gap [Moles/Vol] 12 mmol/L Normal 6-16 [facility] Comment on above: Performed By: #### 1 5227420, 6897129, 3153462, 2723436 #### [facility] [address] [place] [address] Calcium [Mass/Vol] 9.7 mg/dL Normal 8.9-11.1 [facility] Comment on above: Performed By: #### 1 5589014, 1365946, 5070087, 1557774 #### [facility] [address] [place] [address] Chloride [Moles/Vol] 106 mmol/L Normal 101-111 [facility] Comment on above: Performed By: #### 1 8416380, 0155807, 3449900, 2524854 #### [facility] [address] [place] [address] CO2 [Moles/Vol] 27 mmol/L Normal 21-31 [facility] Comment on above: Performed By: #### 1 4040881, 0617702, 9873776, 1523097 #### [facility] [address] [place] [address] Glucose [Mass/Vol] 95 mg/dL Normal 55-199 [facility] Comment on above: Result Comment: If t his glucose result represents a fasting glucose, interpretation should refer to the following reference range: 55-99 mg/dL Performed By: #### 1 1998938, 5349510, 1334495, 1747269 #### [facility] [address] [place] [address] Potassium [Moles/Vol] 3.9 mmol/L Normal 3.5-5.3 [facility] Comment on above: Performed By: #### 1 8446171, 5177214, 7219294, 8861128 #### [facility] [address] [place] [address] Sodium [Moles/Vol] 141 mmol/L Normal 135-145 [facility] Comment on above: Performed By: #### 1 0232564, 3321125, 7075226, 2324736 #### [facility] [address] [place] [address] Consent for Treatmenton 12-21 Consent for Treatment [id number] Normal [facility] Discharge Instructionson Discharge Instructions [id number] Normal [facility] ED Clinical Summaryon 2022 ED Clinical Summary [place] [id number] ED Clinical Summary Person Information Name: BRENDA MCCLAIN [facility] Age: 73 Years : 1950 Sex: Female Language: Thai PCP: Pam Villalobos MD Marital Status: Phone: [phone] Visit Id: Visit Reason: Rash; Headache - [...] 2023 14:40:42 2023 14:40:42 2023 14:40:42 ADDRESS: [address] [place] [id number] PHYS DOC NOTES: MEDICAL INFORMATION: Prescriptions Given: New Medications [facility], [address] [place], [place] [id number], [phone] ketoconazole topical (ketoconazole Top 2% Crm) 1 [...] Follow up: With: Address: When: [place] [address] Business (1) In 3 days [...] ED visit. (more content not included)... Normal [facility] ED Note-Physicianon 01-09-20 ED Note-Physician Basic [...] gm, Refill(s) 0, apply to fungal infection, [facility], 157.5, cm, 01/08/23 12:28:00 EST, Height/Length [...] IV diphenhydrAMINE (more content not included)... Normal [facility] Comment on above: Result Comment: Elec [...] conditioner or fan, if available. ? Apply gter-zuh-hcdpkmg and prescription medicines only as told by [...] after activity or exercise. Use a hair mixer on a cool setting to dry between [...] your skin and with medicines. ? Apply jlbr-ims-suvthlf and prescription medicines only as told by your health care provider. ? Keep all follow-up visits as told by your health care provider. This is important. This information is not intended to replace advice given to you by your health care provider. Make sure you discuss any questions you have with your health care provider. Document Revised: 11/22/2021 Document Reviewed: 11/22/2021 [facility] Patient Education ? 2022 [facility] Neurology Migraine Headache A migraine headache [...] inflammation c (more content not included)... Normal [facility] ED Patient Summaryon 023 ED Patient Summary [address] [address] Patient Discharge Instructions Person Information Name: BRENDA MCCLAIN Age: 73 Years Arrival Date: 2023 12:14:08 Discharge Diagnosis: Candidal intertrigo; Classic migraine; Id reaction Primary Care Physician: Pam Villalobos MD Provider Information Primary Provider: Gray Moon DO Advanced Fill Plant Operator:Nya The exam and treatment you received in the Emergency Department were for an urgent problem and are not intended as complete care. It is important that you follow up with a doctor, nurse practitioner, or physician?s project construction assistant manager for ongoing care. If your symptoms [...] Follow-up Instructions: With: Address: When: Pam Villalobos [address] [place] [address] Business (1) In 3 days 01/11/2023 [...] opioids can be used to help relieve qwplohwv-cf-atmcnw pain and are often prescribed following a [...] a pl (more content not included)... Normal [facility] eGFRon 2023 GFR/1.73 sq M.predicted among non-blacks MDRD (S/P/Bld) [Vol rate/Area] 59 mL/min/1.73 m2 Normal >=59 [facility] Comment on above: Order Comment: Order added by Discern Expert. Result Comment: Nurseryman Assistant jas kidney disease could be indicated at eGFR's of less than 60 mL/min/1.73m2. Kidney failure is indicated at less than 15 mL/min/1.73m2. Performed By: #### 1 2870798, 1075903, 1980077, 2626433 #### [facility] [address] [place] [address] BUNon 08-24-2022 Urea nitrogen [Mass/Vol] 23 mg/dL High 5- [facility] Comment on above: Performed By: #### 1 7523356, 9708209, 5879844, 0288195 #### [facility] [address] [place] [address] CHEMISTRYOrdered By: SYSTEM SYSTEM on 08-24-2022 Albumin [...] Invalid Interpretation Code 0.1 - 0.9 mg/dL [facility] [place]isol Creatinine [Mass/Vol] 1.0 mg/dL Normal 0.5 - 1.3 mg/dL [facility] Remisol GFR/1.73 sq M.predicted among non-blacks MDRD (S/P/Bld) [Vol rate/Area] 59 mL/min/1.73 m2 Normal >=59mL/min/ 1.73 m2 [facility] Chem S Globulin (S) [Mass/Vol] 3.6 g/dL Normal 1.4 - 4.0 gm/dL [facility] Remisol Protein [Mass/Vol] 7.6 g/dL Normal 6.0 - 7.8 gm/dL [facility] Remisol Urea nitrogen [Mass/Vol] 23 mg/dL High 5 - 21 mg/dL [facility] Remisol Consent for Treatmenton Consent for Treatment [id number]:127 Normal [facility] Creatinineon 08-24-2022 Creatinine [Mass/Vol] 1.0 mg/dL Normal 0.5-1.3 [facility] Comment on above: Performed By: #### 1 9853722, 0179591, 1951278, 2288773 #### [facility] [address] [place] [address] Hep Func Panelon 08-24-2022 Bilirubin.indirec t [Mass or moles/Vol] UTC Abnormal 0.1-0.9 [facility] Comment on above: Result Comment: Resu lt verified by Discern Rule. Performed result UTC (Unable to Calculate) was sent as an Alpha code due the inability to calculate a valid numeric value. Performed By: #### 1 1261119, 2631533, 4677454, 1719230 #### [facility] [address] [place] [address] Albumin [Mass/Vol] 4.0 g/dL Normal 3.3-5.0 [facility] Comment on above: Performed By: #### 1 6257067, 3318260, 2413028, 7032573 #### [facility] [address] [place] [address] Albumin/Globulin (S) [Mass conc ratio] 1.1 Normal 1.1-2.2 [facility] Comment on above: Performed By: #### 1 4510604, 8369558, 2293480, 1045187 #### [facility] [address] [place] [address] ALP [Catalytic activity/Vol] 93 Int._Unit/L Normal 21-98 [facility] Comment on above: Performed By: #### 1 3251962, 4217220, 0060751, 0358761 #### [facility] [address] [place] [address] ALT No additional P-5'-P [Catalytic activity/Vol] 19 Int._Unit/L Normal 6-46 [facility] Comment on above: Performed By: #### 1 4796074, 2371997, 5788409, 4471394 #### [facility] [address] [place] [address]66 AST [Catalytic activity/Vol] 24 Int._Unit/L Normal 5-43 [facility] Comment on above: Performed By: #### 1 2774795, 6048723, 8706018, 7438868 #### [facility] [address] [place] [address] Bilirubin [Mass/Vol] 0.6 mg/dL Normal 0.0-1.1 [facility] Comment on above: Performed By: #### 1 9355873, 8207596, 4121240, 8991722 #### [facility] [address] [place] [address] Globulin (S) [Mass/Vol] 3.6 g/dL Normal 1.4-4.0 [facility] Comment on above: Performed By: #### 1 6753936, 4295653, 7971146, 1159322 #### [facility] [address] [place] [address] Protein [Mass/Vol] 7.6 g/dL Normal 6.0-7.8 [facility] Comment on above: Performed By: #### 1 0827828, 1533232, 3677501, 3515350 #### [facility] [address] [place] [address] Bilirubin.direct [Mass/Vol] mg/dL Normal 0.1-0.4 [facility] Comment on above: Performed By: #### 1 9278015, 2403169, 1335960, 4663721 #### [facility] [address] [place] [address] Physician Orderon 08-24-2022 Physician Order [id number]:127 Normal [facility] eGFRon 08-24-2022 GFR/1.73 sq M.predicted among non-blacks MDRD (S/P/Bld) [Vol rate/Area] 59 mL/min/1.73 m2 Normal >=59 [facility] Comment on above: Order Comment: Order Added by Discern Expert. Result Comment: Nurseryman Assistant jas kidney disease could be indicated at eGFR's of less than 60 mL/min/1.73m2. Kidney failure is indicated at less than 15 mL/min/1.73m2. Performed By: #### 1 1770723, 5048103, 1222985, 4441102 #### [facility] [address] [place] [address] CNPTrish 08-22-2022 CNPN Telephone (HEMTSA) BRENDA MCCLAIN ([id number]) 1950 F Date Time Provider Department 08/22/22 [...] Status:Closed by MAYA GUIDRY on 08/22/22 Normal [facility] FERRITIN BLDon 08-19-2022 Ferritin [Mass/Vol] 108.0 ng/mL 14.7 - 205.1 ng/mL [facility] Iron and Iron binding capaci ty panelon 08-19-2022 Iron [Mass/Vol] 143 ug/dL 41 - 186 ug/dL [facility] Iron binding capacity [Mass/Vol] 336 ug/dL 232 - 386 ug/dL [facility] Iron/TIBC [Molar ratio] 42.6 % 15.0 - 57.0 % [facility] Basic metabolic 2000 panelon 08-18-2022 Anion gap [Moles/Vol] 9 mmol/L Normal 9-18 [facility] Comment on above: Order Comment: Speci men Type: BLOOD SPECIMEN Ordering Facility: [facility] Address: [address] [id number] Performed By: #### 2 4321-2 #### [facility] CLIA [id number] [address] [place] [address] Calcium [Mass/Vol] 9.9 mg/dL Normal 8.5-10.2 [facility] Comment on above: Order Comment: Speci men Type: BLOOD SPECIMEN Ordering Facility: [facility] Address: [address] [id number] Performed By: #### 2 4321-2 #### [facility] CLIA [id number] [address] [place] [address] Chloride [Moles/Vol] 102 mmol/L Normal 97-105 [facility] Comment on above: Order Comment: Speci men Type: BLOOD SPECIMEN Ordering Facility: [facility] Address: [address] [address] Performed By: #### 2 4321-2 #### [facility] CLIA [id number] [address] [place] [address] CO2 [Moles/Vol] 29 mmol/L Normal 22-30 [facility] Comment on above: Order Comment: Speci men Type: BLOOD SPECIMEN [facility]ing Facility: [facility] Address: [address] [place] [address] Performed By: #### 2 4321-2 #### [facility] CLIA [id number] [address] [place] [address] 01842 Creatinine [Mass/Vol] 1.05 mg/dL High 0.58-0.96 [facility] Comment on above: Order Comment: Speci men Type: BLOOD SPECIMEN Ordering Facility: [facility] Address: [address] [place] [address] Performed By: #### 2 4321-2 #### [facility] CLIA [id number] [address] [place] [address] 29943 ESTIMATED GLOMERULAR FILTRATION RATE 56 mL/min/1.73m??? Low >=60 [facility] Comment on above: Order Comment: Speci men Type: BLOOD SPECIMEN [facility]ing Facility: [facility] Address: [address] [place] [address] Result Comment: Elsy mated Glomerular Filtration Rate [...] GFR. Performed By: #### 2 4321-2 #### [facility] CLIA [id number] [address] [place] [address] 18775 Glucose [Mass/Vol] 70 mg/dL Low 74-99 [facility] Comment on above: Order Comment: Speci men Type: BLOOD SPECIMEN Ordering Facility: [facility] Address: [address] [address] Result Comment: The [place] [employer] (ADA) provides guidance for cutoff [...] Standards of Medical Care in Diabetes 2016, [place] [employer]. Diabetes Care. 2016.39(Suppl 1). Performed By: #### 2 4321-2 #### [facility] CLIA [id number] [address] [place] [address] 45612 Potassium [Moles/Vol] 3.7 mmol/L Normal 3.7-5.1 [facility] Comment on above: Order Comment: Speci men Type: BLOOD SPECIMEN Ordering Facility: [facility] Address: [address] [address] Performed By: #### 2 4321-2 #### [facility] CLIA [id number] [address] [place] [address] 26370 Sodium [Moles/Vol] 140 mmol/L Normal 136-144 [facility] Comment on above: Order Comment: Speci men Type: BLOOD SPECIMEN [facility]ing Facility: [facility] Address: [address] [address] Performed By: #### 2 4321-2 #### [facility] CLIA [id number] [address] [place] [address] 86854 Urea nitrogen [Mass/Vol] 21 mg/dL Normal 7-21 [facility] Comment on above: Order Comment: Speci men Type: BLOOD SPECIMEN [facility]ing Facility: [facility] Address: [address] [address] Performed By: #### 2 4321-2 #### [facility] CLIA [id number] [address] [place] [address] Anion gap [Moles/Vol] 9 mmol/L 9 - 18 mmol/L [facility] Calcium [Mass/Vol] 9.9 mg/dL 8.5 - 10.2 mg/dL [facility] Chloride [Moles/Vol] 102 mmol/L 97 - 105 mmol/L [facility] CO2 [Moles/Vol] 29 mmol/L 22 - 30 mmol/L [facility] Creatinine [Mass/Vol] 1.05 mg/dL High 0.58 - 0.96 mg/dL [facility] Estimated Glomerular Filtration Rate 56 mL/min/1.73m Low >=60 mL/min/1.73 m [facility] Glucose [Mass/Vol] 70 mg/dL Low 74 - 99 mg/dL [facility] Potassium [Moles/Vol] 3.7 mmol/L 3.7 - 5.1 mmol/L [facility] Sodium [Moles/Vol] 140 mmol/L 136 - 144 mmol/L [facility] Urea nitrogen [Mass/Vol] 21 mg/dL 7 - 21 mg/dL [facility] CBC W Auto Differential pane l (Bld)on 08-18-2022 Basophils (Bld) [#/Vol] 0.04 10*3/uL Normal <0.11 [facility] Comment on above: Order Comment: Speci men Type: BLOOD SPECIMEN [facility]ing Facility: [facility] Address: [address] [place] [address] Performed By: #### 5 7021-8 #### [facility] CLIA [id number] [address] [place] [address] 20382 Basophils/100 WBC (Bld) 0.6 % Normal [facility] Comment on above: Order Comment: Speci men Type: BLOOD SPECIMEN Ordering Facility: [facility] Address: [address] [address] Performed By: #### 5 7021-8 #### [facility] CLIA [id number] [address] [place] [address] Differential cell count method Nom (Bld) Auto Normal [facility] Comment on above: Order Comment: Speci men Type: BLOOD SPECIMEN Ordering Facility: [facility] Address: [address] [address] Performed By: #### 5 7021-8 #### [facility] CLIA [id number] [address] [place] [address] 44085 Eosinophils (Bld) [#/Vol] 0.21 10*3/uL Normal <0.46 [facility] Comment on above: Order Comment: Speci men Type: BLOOD SPECIMEN Ordering Facility: [facility] Address: [address] [address] Performed By: #### 5 7021-8 #### [facility] CLIA [id number] [address] [place] [address] 54411 Eosinophils/100 WBC (Bld) 3.3 % Normal [facility] Comment on above: Order Comment: Speci men Type: BLOOD SPECIMEN Ordering Facility: [facility] Address: [address] [address] Performed By: #### 5 7021-8 #### [facility] CLIA [id number] [address] [place] [address] 29711 Erythrocyte distribution width (RBC) [Ratio] 13.3 % Normal 11.5-15.0 [facility] Comment on above: Order Comment: Speci men Type: BLOOD SPECIMEN Ordering Facility: [facility] Address: [address] [address] Performed By: #### 5 7021-8 #### [facility] CLIA [id number] [address] [place] [address] 53072 Hematocrit (Bld) [Volume fraction] 41.1 % Normal 36.0-46.0 [facility] Comment on above: Order Comment: Speci men Type: BLOOD SPECIMEN Ordering Facility: [facility] Address: [address] [address] Performed By: #### 5 7021-8 #### [facility] CLIA [id number] [address] [place] [address] 57702 Hemoglobin (Bld) [Mass/Vol] 13.8 g/dL Normal 11.5-15.5 [facility] Comment on above: Order Comment: Speci men Type: BLOOD SPECIMEN Ordering Facility: [facility] Address: [address] [address] Performed By: #### 5 7021-8 #### [facility] CLIA [id number] [address] [place] [address] 37721 Immature granulocytes (Bld) [#/Vol] 0.03 10*3/uL Normal <0.10 [facility] Comment on above: Order Comment: Speci men Type: BLOOD SPECIMEN Ordering Facility: [facility] Address: [address] [address] Performed By: #### 5 7021-8 #### [facility] CLIA [id number] [address] [place] [address] 27739 Immature granulocytes/100 WBC (Bld) 0.5 % Normal [facility] Comment on above: Order Comment: Speci men Type: BLOOD SPECIMEN Ordering Facility: [facility] Address: [address] [address] Performed By: #### 5 7021-8 #### [facility] CLIA [id number] [address] [place] [address] 98102 Lymphocytes (Bld) [#/Vol] 1.99 10*3/uL Normal 1.00-4.00 [facility] Comment on above: Order Comment: Speci men Type: BLOOD SPECIMEN Ordering Facility: [facility] Address: [address] Performed By: #### 5 7021-8 #### [facility] CLIA [id number] [address] [place] [address] 91544 Lymphocytes/100 WBC (Bld) 31.4 % Normal [facility] Comment on above: Order Comment: Speci men Type: BLOOD SPECIMEN Ordering Facility: [facility] Address: [address] [address] Performed By: #### 5 7021-8 #### [facility] CLIA [id number] [address] [place] [address] 24860 MCH (RBC) [Entitic mass] 31.7 pg Normal 26.0-34.0 [facility] Comment on above: Order Comment: Speci men Type: BLOOD SPECIMEN Ordering Facility: [facility] Address: [address] [place] [address] Performed By: #### 5 7021-8 #### [facility] CLIA [id number] [address] [place] [address] 02650 MCHC (RBC) [Mass/Vol] 33.6 g/dL Normal 30.5-36.0 [facility] Comment on above: Order Comment: Speci men Type: BLOOD SPECIMEN Ordering Facility: [facility] Address: [address] [place] [address] Performed By: #### 5 7021-8 #### [facility] CLIA [id number] [address] [place] [address] 31479 MCV (RBC) [Entitic vol] 94.3 fL Normal 80.0-100.0 [facility] Comment on above: Order Comment: Speci men Type: BLOOD SPECIMEN Ordering Facility: [facility] Address: [address] [place] [address] Performed By: #### 5 7021-8 #### [facility] CLIA [id number] [address] [place] [address] 19384 Monocytes (Bld) [#/Vol] 0.76 10*3/uL Normal <0.87 [facility] Comment on above: Order Comment: Speci men Type: BLOOD SPECIMEN Ordering Facility: [facility] Address: [address] [place] [address] Performed By: #### 5 7021-8 #### [facility] CLIA [id number] [address] [place] [address] 18041 Monocytes/100 WBC (Bld) 12.0 % Normal [facility] Comment on above: Order Comment: Speci men Type: BLOOD SPECIMEN Ordering Facility: [facility] Address: [address] [address] Performed By: #### 5 7021-8 #### [facility] CLIA [id number] [address] [place] [address] 00404 Neutrophils (Bld) [#/Vol] 3.30 10*3/uL Normal 1.45-7.50 [facility] Comment on above: Order Comment: Speci men Type: BLOOD SPECIMEN Ordering Facility: [facility] Address: [address] [address] Performed By: #### 5 7021-8 #### [facility] CLIA [id number] [address] [place] [address] 47501 Neutrophils/100 WBC (Bld) 52.2 % Normal [facility] Comment on above: Order Comment: Speci men Type: BLOOD SPECIMEN Ordering Facility: [facility] Address: [address] [address] Performed By: #### 5 7021-8 #### [facility] CLIA [id number] [address] [place] [address] 30751 Nucleated RBC (Bld) [#/Vol] 10*3/uL Normal <0.01 [facility] Comment on above: Order Comment: Speci men Type: BLOOD SPECIMEN Ordering Facility: [facility] Address: [address] [address] Performed By: #### 5 7021-8 #### [facility] CLIA [id number] [address] [place] [address] 50916 Nucleated RBC/100 WBC (Bld) [Ratio] 0.0 /100 WBC Normal [facility] Comment on above: Order Comment: Speci men Type: BLOOD SPECIMEN Ordering Facility: [facility] Address: [address] [address] Performed By: #### 5 7021-8 #### [facility] CLIA [id number] [address] [place] [address] 49067 Platelet mean volume (Bld) [Entitic vol] 9.5 fL Normal 9.0-12.7 [facility] Comment on above: Order Comment: Speci men Type: BLOOD SPECIMEN Ordering Facility: [facility] Address: [address] [place] [address] Performed By: #### 5 7021-8 #### [facility] CLIA [id number] [address] [place] [address] 09666 Platelets (Bld) [#/Vol] 404 10*3/uL High 150-400 [facility] Comment on above: Order Comment: Speci men Type: BLOOD SPECIMEN Ordering Facility: [facility] Address: [address] [place] [address] Performed By: #### 5 7021-8 #### [facility] CLIA [id number] [address] [place] [address] 06906 RBC (Bld) [#/Vol] 4.36 10*6/uL Normal 3.90-5.20 [facility] Comment on above: Order Comment: Speci men Type: BLOOD SPECIMEN Ordering Facility: [facility] Address: [address] [place] [address] Performed By: #### 5 7021-8 #### [facility] CLIA [id number] [address] [place] [address] 52237 WBC (Bld) [#/Vol] 6.33 10*3/uL Normal 3.70-11.00 [facility] Comment on above: Order Comment: Speci men Type: BLOOD SPECIMEN Ordering Facility: [facility] Address: [address] [place] [address] Performed By: #### 5 7021-8 #### [facility] CLIA [id number] [address] [place] [address] 20419 Basophils (Bld) [#/Vol] 0.04 10*3/uL <0.11 k/uL [facility] Basophils/100 WBC (Bld) 0.6 % [facility] Differential cell count method Nom (Bld) Auto [facility] Eosinophils (Bld) [#/Vol] 0.21 10*3/uL <0.46 k/uL [facility] Eosinophils/100 WBC (Bld) 3.3 % [facility] Erythrocyte distribution width (RBC) [Ratio] 13.3 % 11.5 - 15.0 % [facility] Hematocrit (Bld) [Volume fraction] 41.1 % 36.0 - 46.0 % [facility] Hemoglobin (Bld) [Mass/Vol] 13.8 g/dL 11.5 - 15.5 g/dL [facility] Immature granulocytes (Bld) [#/Vol] 0.03 10*3/uL <0.10 k/uL [facility] Immature granulocytes/100 WBC (Bld) 0.5 % [facility] Lymphocytes (Bld) [#/Vol] 1.99 10*3/uL 1.00 - 4.00 k/uL [facility] Lymphocytes/100 WBC (Bld) 31.4 % [facility] MCH (RBC) [Entitic mass] 31.7 pg 26.0 - 34.0 pg [facility] MCHC (RBC) [Mass/Vol] 33.6 g/dL 30.5 - 36.0 g/dL [facility] MCV (RBC) [Entitic vol] 94.3 fL 80.0 - 100.0 fL [facility] Monocytes (Bld) [#/Vol] 0.76 10*3/uL <0.87 k/uL [facility] Monocytes/100 WBC (Bld) 12.0 % [facility] Neutrophils (Bld) [#/Vol] 3.30 10*3/uL 1.45 - 7.50 k/uL [facility] Neutrophils/100 WBC (Bld) 52.2 % [facility] Nucleated RBC (Bld) [#/Vol] <0.01 k/uL [facility] Nucleated RBC/100 WBC (Bld) [Ratio] 0.0 /100 WBC [facility] Platelet mean volume (Bld) [Entitic vol] 9.5 fL 9.0 - 12.7 fL [facility] Platelets (Bld) [#/Vol] 404 10*3/uL High 150 - 400 k/uL [facility] RBC (Bld) [#/Vol] 4.36 10*6/uL 3.90 - 5.2 0 m/uL [facility] WBC (Bld) [#/Vol] 6.33 10*3/uL 3.70 - 11.00 k/uL [facility] CNOVSPon 08-18-2022 CNOVSP Visit (SP) Office (H EMASA) BRENDA MCCLAIN ([id number]) 1950 F Date Time Provider Department 08/18/22 [...] petechiae. LABOR (more content not included)... Normal [facility] Ferritin SerPl-ncon 2022 Ferritin [Mass/Vol] 108.0 ng/mL Normal 14.7-205.1 [facility] Comment on above: Order Comment: Ajay nath Type: BLOOD SPECIMEN [facility]ing Facility: [facility] Address: [address] [place], [place] [address] Performed By: #### 5 0190-8, 2885-2, 2276-4 #### [facility] CLIA [id number] [address] [address] [place] IMMUNOFIXATION SCREEN, SERUM on 08-18-2022 INTERPRETATION (MPA) Atypical restricted bands are present in the IgG and lambda regions. Consistent with IgG lambda monoclonal gammopathy. Normal [facility] Comment on above: Order Comment: Ajay nath Type: BLOOD SPECIMEN Ordering Facility: [facility] Address: [address] [id number] Performed By: #### 5 0190-8, 2885-2, 6-4 #### [facility] CLIA [id number] [address] [place] [address] MPA RESULT M protein is present. Abnormal No M protein is identified. [facility] Comment on above: Order Comment: Speci men Type: BLOOD SPECIMEN [facility]ing Facility: [facility] Address: [address] Performed By: #### 5 0190-8, 2885-2, 6-4 #### [facility] CLIA [id number] [address] [place] [address] [facility] STAFF REVIEW (MPA) Reviewed by Zaira Fishman MD [facility] Comment on above: Order Comment: Speci men Type: BLOOD SPECIMEN [facility]ing Facility: [facility] Address: [address] Performed By: #### 5 0190-8, 2885-2, 2275-4 #### [facility] CLIA [id number] [address] [place] [address] [place] IMMUNOGLOBULINS GAMon 2022 IgA [Mass/Vol] 335 mg/dL Normal 70-400 [facility] Comment on above: Order Comment: Speci men Type: BLOOD SPECIMEN [facility]ing Facility: [facility] Address: [address] Performed By: #### S ERIMM #### [facility] CLIA [id number] [address] [place] [address] [place] IgG [Mass/Vol] 1369 mg/dL Normal 700-1600 [facility] Comment on above: Order Comment: Speci men Type: BLOOD SPECIMEN [facility]ing Facility: [facility] Address: [address] Performed By: #### S ERIMM #### [facility] CLIA [id number] [address] [place] [address] [place] IgM [Mass/Vol] 151 mg/dL Normal 40-230 [facility] Comment on above: Order Comment: Speci men Type: BLOOD SPECIMEN [facility]ing Facility: [facility] Address: [address] [place] [address] Performed By: #### S ERIMM #### [facility] CLIA [id number] [address] [place] [address] [place] Iron and Iron binding capaci ty panelon 08-18-2022 Iron [Mass/Vol] 143 ug/dL Normal 41-186 [facility] Comment on above: Order Comment: Speci men Type: BLOOD SPECIMEN Ordering Facility: [facility] Address: [address] [place] [address] Performed By: #### 5 0190-8, 2885-2, 6-4 #### [facility] CLIA [id number] [address] [place] [address] [place] Iron binding capacity [Mass/Vol] 336 ug/dL Normal 232-386 [facility] Comment on above: Order Comment: Speci men Type: BLOOD SPECIMEN [facility]ing Facility: [facility] Address: [address] [place], [place] [address] Performed By: #### 5 0190-8, 2885-2, 6-4 #### [facility] CLIA [id number] [address] [place] [address] [place] Iron/TIBC [Molar ratio] 42.6 % Normal 15.0-57.0 [facility] Comment on above: Order Comment: Speci men Type: BLOOD SPECIMEN [facility] Facility: [facility] Address: [address] [place], [place] [address] Performed By: #### 5 0190-8, 2885-2, 2276-4 #### [facility] CLIA [id number] [address] [place], [place] [address] [place] KAPPA/GOMEZ,FREE,SERon 2022 Immunoglobulin light chains.kappa.free (S) [Mass/Vol] 32.1 mg/L High 3.3-19.4 [facility] Comment on above: Order Comment: Ajay nath Type: BLOOD SPECIMEN [facility]ing Facility: [facility] Address: [address] [place] [address] Result Comment: Rare ly, increased serum free light chains levels may not be detected or accurately quantified due to prozone phenomenon or in high viscosity samples using this immunoturbidimetric assay. Correlation with other laboratory results and clinical findings is recommended. The [place] Free Light Chain was performed using the Binding Site Optilite immunoturbidimetric method. Result obtained with different assay methods or kits cannot be used interchangeably. Performed By: #### 5 0190-8, 2885-2, 2276-4 #### [facility] CLIA [id number] [address] [place] [address] Immunoglobulin light chains.kappa/Immu noglobulin light chains.lambda (S) [Mass ratio] 1.10 Normal 0.26-1.65 [facility] Comment on above: Order Comment: Ajay nath Type: BLOOD SPECIMEN [facility]ing Facility: [facility] Address: [address] [place] [address] Performed By: #### 5 0190-8, 2885-2, 2276-4 #### [facility] CLIA [id number] [address] [place] [address] [place] Immunoglobulin light chains.lambda.kurt e [Mass/Vol] 29.2 mg/L High 5.7-26.3 [facility] Comment on above: Order Comment: Ajay nath Type: BLOOD SPECIMEN [facility]ing Facility: [facility] Address: [address] [place] [address] Result Comment: Rare ly, increased serum free [...] By: #### 5 0190-8, 2884-2, 2275-05 #### [facility] CLIA [id number] [address] [place] [address] [place] PROTEIN ELECTROPHORESIS SERU M WITH DARÍO (P)on 08-18-2022 Albumin [Mass/Vol] 4.20 g/dL Normal 3.43-5.41 [facility] Comment on above: Order Comment: Speci men Type: BLOOD SPECIMEN [facility]ing Facility: [facility] Address: [address] [place] [address] Performed By: #### 5 0190-8, 2884-03, 2275-05 #### [facility] CLIA [id number] [address] [place] [address] [place] Alpha 1 globulin Elph [Mass/Vol] 0.29 g/dL Normal 0.18-0.43 [facility] Comment on above: Order Comment: Speci men Type: BLOOD SPECIMEN [facility]ing Facility: [facility] Address: [address] [place] [address] Performed By: #### 5 0190-8, 2884-03, 2275-05 #### [facility] CLIA [id number] [address] [place] [address] [place] Alpha 2 globulin Elph [Mass/Vol] 0.60 g/dL Normal 0.42-0.98 [facility] Comment on above: Order Comment: Speci men Type: BLOOD SPECIMEN [facility]ing Facility: [facility] Address: [address] [place], [place] [address] Performed By: #### 5 0190-8, 2884-03, 2275-05 #### [facility] CLIA [id number] [address] [place] [address] [place] Beta globulin Elph [Mass/Vol] 1.01 g/dL Normal 0.61-1.17 [facility] Comment on above: Order Comment: Speci men Type: BLOOD SPECIMEN [facility]ing Facility: [facility] Address: [address] [place] [address] Performed By: #### 5 0190-8, 2885-2, 2275-4 #### [facility] CLIA [id number] [address] [place] [address] [place] COMMENT (SERUM PROT ELECTRO) Monoclonal Protein analysis (immunofixation) is not indicated. Normal [facility] Comment on above: Order Comment: Speci men Type: BLOOD SPECIMEN [facility]ing Facility: [facility] Address: [address] [place] [address] Performed By: #### 5 0190-8, 2884-2, 2275-05 #### [facility] CLIA [id number] [address] [place] [address] [place] Gamma globulin Elph [Mass/Vol] 1.30 g/dL Normal 0.53-1.51 [facility] Comment on above: Order Comment: Speci men Type: BLOOD SPECIMEN [facility]ing Facility: [facility] Address: [address] [place] [address] Performed By: #### 5 0190-8, 2884-2, 2275-05 #### [facility] CLIA [id number] [address] [place] [address] [place] INTERPRETATION COMMENT FOR PROTEIN ELECTROPHORESIS Normal [facility] Comment on above: Order Comment: Speci men Type: BLOOD SPECIMEN [facility]ing Facility: [facility] Address: [address] [place] [address] Result Comment: See separate immunofixation report for characterization of monoclonal gammopathy. M protein is present on the background of a polyclonal immunoglobulin population. Quantitation of the M protein may overestimate the amount of M protein present. Performed By: #### 5 0190-8, 2885-2, 2275-4 #### [facility] CLIA [id number] [address] [place] M-PROTEIN LOCATION Gamma Fraction 1 Normal [facility] Comment on above: Order Comment: Speci men Type: BLOOD SPECIMEN [facility]ing Facility: [facility] Address: [address] [place] [address] Performed By: #### 5 0190-8, 2885-2, 6-4 #### [facility] CLIA [id number] [facility] [place] [address] [place] Protein Fractions [Interp] An M protein is identified on protein electrophoresis. Abnormal No definitive M protein is identified on protein electrophor esis. [facility] Comment on above: Order Comment: Speci men Type: BLOOD SPECIMEN Ordering Facility: [facility] Address: [address] [place] [address] Performed By: #### 5 0190-8, 2885-2, 2275-4 #### [facility] CLIA [id number] [address] [place] [address] [place] Protein.monoclona l Elph [Mass/Vol] 0.42 g/dL High <=0.00 [facility] Comment on above: Order Comment: Speci men Type: BLOOD SPECIMEN [facility] [facility] Address: [address] [place], [place] [id number] Performed By: #### 5 0190-8, 2885-2, 2275-4 #### [facility] CLIA [id number] [address] [place] [address] [place] SPE STAFF REVIEW Reviewed by Zaira Fishman MD [facility] Comment on above: Order Comment: Speci men Type: BLOOD SPECIMEN Ordering Facility: [facility] Address: [address] [place], [place] [id number] Performed By: #### 5 0190-8, 2885-2, 6-4 #### [facility] CLIA [id number] [address] [place] [address] [place] Prot SerPl-mCncon 08-18-2022 Protein [Mass/Vol] 7.4 g/dL Normal 6.3-8.0 [facility] Comment on above: Order Comment: Speci men Type: BLOOD SPECIMEN [facility]ing Facility: [facility] Address: [address] [place] [phone] Performed By: #### 5 0190-8, 2885-2, 2276-4 #### [facility] CLIA [id number] 9500 [facility] DESK [address] [address] [facility] [place] Coding Summary.on 05-26-2022 Coding Summary. CD:[id number] Ww+PGhlYWQ+ VY9GEYVqK44wuAYwtE1xK1ADQBqTVmm tFRGRJCuVMkGyqgSlTW7ehPMtQDNl IC8+CG6jCCTrZjqnpGKyd8V0zIE6K08 hto1iBPonxUA1TYXmWuVrpvesv8khtK d9QKefXcuxSqZw LREioV55HXE1aG63Fg00pMApxIFkk5k opLq9VsHrMNFfLPI8nGqzHUuau0RuLF BsS74mfBYhr7H5 UGAtmBisuDApZtVojXI3gV8qLZbbspj uk9psnecwKke8xm91pYQsj8H2iMH8H3 FnucD1QRNivCRl UqoxrRYQxP5vqiiev3sgviwdYwFvPLX wCAr3VAb0ONAlkVurFtBjTO09SWC5XX LxugOiM0JiOUSh qDszOyC8y1J0Om2QR9CJQihvJ8UAWSN SWTwvdGQ+RP46qj42Q7UrOpkiOxd6ZH PnHJG8rNY2wO2j JDZxIKwqg2D4cMN7Z0GqonQbkr6dt5q qZMPoSAdlY24hdNJht2E8FIFebDP8IB LegWudZcUbxV51 Oyc+ZBWvjBjhr7WuRylwn0kpz9gvcHh 5QmigJXYbupUxiFmxCEL0b3JsDo7aDZ EqcEY2oVM7hU4x MvLkVdB8GEppU577GoYayCAiTnrcL47 mJ6FggHF+FDRtKhl6YEDbbPtfAS6rM4 BhZGRpbmctbGVm gAweYD6jHXAxgheuZLIwzO5wHJLzT5l 8LhMbYsZ5LWrtZ7UtTSTcdayzQa72cA 2kDdVdZiL2QYyt K0VlcvZ7FSQnsCHaLMopFCQ8G71uf8T 0LMNrAGMgIUY5cTU6zG9aiOmdlbhmzE VmdDsgdmVydGlj QWxlASryU054CIKojNmxAvDpXLqrPgU EYXRlOiAgMDQvMDYvMjAyMzwvdGQ+PH OiPMB0fSkqCRXm gSLtOZxeGt9rvXnatPxwEP4oRKPujdw mRDLtcZ1aSEBnkZDobEodWO4eMGDopk znn479PbMyJTV9 IQZbkJWsT2FetD9eUzEgJRSgYRUiK2T yrXXlTMzpO134KUadDuO9ZEJlsaXfR0 FsLWFsaWduOiB0 m8T9Iq0Mt7MqugjwJ1CixQTcGlYaXqw vMRq2B2JjNywxxOQ+QF27WIErXL80UH z1RMC5pXohQHha WYXgN0RxwN6uWxCqGYTgQVNoJvx+PHR hYmxlIHdpZHRoPScxMDAlJyBzdHlsZT 7vQf5hBQTaTLZf uLbeaPTwVaPdg3ktTPLmECegGP2rjAb oW4WahCF0WUJto1o6Jy47P44mJ2ZnyW A+EFVgyCY2dZV0 jR0cFaYiWmF6ODkdF382FsLicRSfWgv na2gtc8glxWg7EzK3OHFbsxZkoNgpBJ J1w1KhZb50G79u LHsyHKHbCNRwNCAyYMAijHvddf7lbI4 wIi8+KWJljPE6lEV9tF7pLuUrOgJ0DQ uaW963EwCdcKAc Uaeht3xlc4bqoNp6EmKuGKWighEdzVz xDUP8g2SxWb83H0ExmIsqc4EcXei5jw 45sWEng0T1dWR3 D9ObQZTvyhnbcZStsGyeBK2iPOAizml hPMQmoD7sQHXtM6j1RjQcEzT3GEihX7 FmerX3PPJspADw JNYeoSJQqT4tbzmmz1vnlkyhKuHzXNV wQAe8VTm2MDTsiMsrTcYpBSZ0VtW6UD D2cLTvcV2riFsm nnmtzK1bEbq+VYK0wGBqgATXYE9uGom vdGQ+ROQdTOK1fZobTUdwBUMzjC0sOG HmP3y4MlIgBfY4 FPinM4GjpgP1LRHlyOKsLCPmcVZNxN6 tgfavs3jacbofPgXtGMZgPMs1VZd2KK FsaWduOiBsZWZ0 MkM2DHD7xFRwnQ4dvExffqhsdB9xAbg +PsatiOzfFZG4SFc9X8SuSvd6YLKenI ukYO8aaSMiRXte Hz4mtSldnCsiIX3xVNUhduzpv475IiO cw0chXJJclBPwXYgmGWG8Q62lc9S1XY YhAOMwFWW7aRJ6 jR5htFenpvaxgZYntAqgqnAhgKjqUUr uVBciF491EOXbjGfhKlItSCb0H0BsYp q8DXEixXfbGN8y pVWrOAdlFc8rwCcuyGgxHB8hKOPriah va842TyVrh2unLCNgeMEwQGqcQGO6F9 7lm5T1CHUxYBXr ZBH1yQY7yM3fvGeyckhqjHWoeNqakpA zyIjuWKgoMJnpR938QCXjiVciAvDpsG j8I5IuFrh7XEAa gIktMK1teAHmYKsoQp1bvFwmyVlvHG3 eHMQlwkblk389QqLeg0pmMNZpzZWwYI xaPWG8F63os5Y0 FRZmQXOtUFN8aYH4yR4xsSptqihulFK ucTagtbYsgLdbKEkdPFvoV860UWTvrI snPlBhdGllbnQg BPdeWKy8N1SoOjbdtGQ+TD31ULMeTT8 2zDYufKWpz6mcsPs0BtUxMBByIYG5oA trNLpng4SaRMIi J38aqBFgm7B0UVFptHpxxZClQwYgsBE 0aS8dJHqgrfgtc0esyqeaNaurd6gzaf 19eN16F51eXKlp ZBLoRWLiQWPrKTDzdJtcrz0pfF3rJh8 +TQCpvCO6kPO6lS5sCJIlAcP8IMbyE8 49InRvcCIvPjxj f2hxj7urnXm5LvB9PZHkleBelUeyUTP 7k2DsYm01O38zJPnlIVSmUBVwBVMmAB XrlRcath7lrK9k Ii8+AXGdjLK8dVN6bB5aMrIpRvP3ITz oX917JgDheQYvTnofK77dB2NdsNH+PH UzOom5XZIawKso OV7bsIMuUTyqXj9nQSF5ZiHnJkCoNUc jM1ScFWJxoicckaqolXY7LCArGKXmaZ 26Zj5luUtrGOEz eFGAqT1wwumxl1fvvlymZbYsORWcHDl 6EMe1DXGkyWphGnXdZDL0HcX7ZVD5kY KgyW5tgFayiccu fH7vN3VqOGUrgruzHm06sF1vUsHcByE 1MGluOyc+UlRZTAtzBRZWM9gCGCw7S7 QeDet1OHAobKfm PB1kuXEyPDhoOj8ciBayjGqpZW8cQPJ lkmqbMPLxvT3pTEQtxZLdyIwkTV7aJQ Yayajyj026NkLl HRN2QMPdrKWtU8PjdH7cHsFiBNNpHLS zQ4WmhTZdNTwnZ038HQywCyH6WBWkca TaM6JdGQEubPmi RqV6h6T3Jz7mBI4cXO6xEHZ9JF61KE6 0kXWzz2F5eHH2L2GxCGHtwshirduevP N8DSBtZJYbuR28 hRCgBYlcCi9io4Q1e161GUNfNTMjpA7 5Fo0oiWaiAXAqsZYZkJ3wjkdel5aenz ogIzAwMDAwMDt0 QTn2RGPmhYyrPbOfXQM3YpO1CEC2jHL lkJ0kcOdkecmlrA1mLdu+NzQgWWVhcn Y9A2HkDjc2QBNi bOimSY2nkMBeYEicNx8bvUqgnFdnIA6 rXPAwssevASIsiP9mEDAcvCPjjJtzSM 9hLUNkipfge334 DrAwJLM5DFRjuRVvE4BgkH3uYyMbHCE hLLMuU2HquXFfMRiaB180XMthZzU6HM HgfpEeH2ObREBt lRjfSsD5o3A9Kz1OMK5thJE9X7EoVpt 9TVRkqYwoWU4ftHJpNWypHq6nzCpubS whIC0vVYNyqfza FMJwcS7aEAOwpCOesPqpCW6wEFJcyfr vo296FeNiWUD3XCOsbVJjO8KcwN0eOc RdSYSpZMKvA9Av lEAfBDyjK877EPvhRkZ0LZJjjqDpG1X bHFNzxNgbJwA0a4Q1Hu1NcYOwXRQbBX 02IH42YH46Y1Vt PjwvdGFibGU+PHRhYmxlIHdpZHRoPSc nMEQdJiLeuXkdRX1tOb2fWPOrXFJpvS aurTBxJdRsc9rd MTKmUKbhAQ6cfGuqY3XavVV9BIIyt9b 1Oj58W77zC2AzdTI+JXWltRR6yNR0hO 5kIpVdZnK0HPkp D812NrVhfTLfUxadk4mlc9mglQq6KsS tWFEdjhGwfNoeSCA5p0BpGo26E48bTE dpZHRoPSIyMCUi EECzeEpbti0ffC1xIp7+KWJskVO5dBC 4xC7mUtDbCoU5HTyuA661GeMqwDOiEw jxC68jU4FybAM+ QTOdPyp3EVAzrGtxTL7xrPPxGHkmFw9 vJEF7GnAuSfFiYRhiZ9LxIYRjrkvlkr qkcGZ6ZLWoNAKx lZ28Ll7nrNmrXp1bMUMmPAI6TWNseIP mG2LvyR7kEkWjYFAqTBHhY4OdrJQqSF vjU311UFhbMaO6 QEHjbtYkC7MgIYZhgZquKtI6l1K4My7 ZhCgwaSQzVM1fKvRhNCh1I7DvIda4VP SpzKffTW9atAEq XSuyCo5quGhmqPjtDG8hOSOusvydc18 7QyCxf1mlOAUzmYUoGChpIOS7E56pq5 B3MYDkICBpKTW7 wCX1hC2okNvkaptiaSHvlEavvdHmsPs vXHqrYCkyD895NMIueOehQuRQXqj2U0 GgZwk4GCAxmVoc WI7coKDiPFwkXk2elDxjfHygVR4rHHQ zakzoa127AsEht1huLRYxmMBrXYisGF R6M31in6J9GNCp PHJfLSJ5tZI3kS9olEdcphiplDEboUv iyjOkhPadZThhBCnkV113DXKfrVgyTp 5UGsr5G4OmVor2 XHLpbSslKA3znZWeZWnpAc5slSutzBe pLI4yXAPxhikfw047FsDbo5juFUKzgQ BzORabFGC4C16b f7M9CUUyVPXvZBE4eNU0hA6raIvkket pnICamMjmbgUlkBnzPWtqRIzwU413BP RvcDsnPlBheWVy OjwvdGQ+SP17ix74G1AeVmpwOjm2NSV hFUC8aUF2uB3kWCJnEJefp7S4mRV6U9 QhvqMyjh2ax9ey YXBzZTog (more content not included)... Normal [facility] [place] Mamm Screen w/CAD if perf [...] very important to your health. The current [place] and [employer] Comprehensive Cancer [...] Category 1-Negative Recommendation: Normal interval follow-up Normal [facility] Consent for Treatmenton 04-21 Consent for Treatment [id number] Normal [facility] Complete Blood Count with Au to Diffon 04-13-2021 Basophils (Bld) [#/Vol] 0.06 10*3/uL Normal 0.00-0.20 [facility] [employer] Comment on above: Performed By: #### C LAURA HOLGUIN, CBCAD #### [facility] [address] [place], [place] [id number] Basophils/100 WBC (Bld) 0.8 % Normal [facility] [employer] Comment on above: Performed By: #### C LAURA HOLGUIN, CBCAD #### [facility] [address] [place], [place] [id number] Eosinophils (Bld) [#/Vol] 0.52 10*3/uL High 0.02-0.50 [facility] [employer] Comment on above: Performed By: #### C SARAH BETH HOLGUIND, CBCAD #### [facility] [address] [place], [place] [id number] Eosinophils/100 WBC (Bld) 7.3 % Normal [facility] [employer] Comment on above: Performed By: #### C SARAH BETH HOLGUIND, CBCAD #### [facility] [address] [place], [place] [id number] Erythrocyte distribution width (RBC) [Ratio] 13.1 % Normal 11.0-15.0 [facility] [employer] Comment on above: Performed By: #### C SARAH BETH HOLGUIND, CBCAD #### [facility] [address] [place], [place] [id number] Hematocrit (Bld) [Volume fraction] 43.9 % Normal 35.0-47.0 [facility] [employer] Comment on above: Performed By: #### C CHELSIE LIPD, CBCAD #### [facility] [address] [place], [place] [id number] Hemoglobin (Bld) [Mass/Vol] 14.5 g/dL Normal 11.6-15.5 [facility] Comment on above: Performed By: #### C MP LIPD, CBCAD #### [facility] [address] [place], [place] [id number] Lymphocytes (Bld) [#/Vol] 2.4 10*3/uL Normal 0.9-3.9 [facility] Comment on above: Performed By: #### C MP, LIPD, CBCAD #### [facility] [address] [place], [place] [id number] Lymphocytes/100 WBC (Bld) 34.2 % Normal [facility] Comment on above: Performed By: #### C CHELSIE LIPD, CBCAD #### [facility] [address] [place], [place] [id number] MCH (RBC) [Entitic mass] 31.6 pg Normal 27.0-33.0 [facility] Comment on above: Performed By: #### C CHELSIE, LIPD, CBCAD #### [facility] [address] [place], [place] [id number] MCHC (RBC) [Mass/Vol] 33.0 g/dL Normal 32.0-36.0 [facility] Comment on above: Performed By: #### C CHELSIE LIPD, CBCAD #### [facility] [address] [place], [place] [id number] MCV (RBC) [Entitic vol] 96 fL Normal 80-100 [facility] Comment on above: Performed By: #### C MP, LIPD, CBCAD #### [facility] [address] [place], [place] [id number] Monocytes (Bld) [#/Vol] 0.9 10*3/uL Normal 0.2-0.9 [facility] Comment on above: Performed By: #### C MP, LIPD, CBCAD #### [facility] [address] [place], [place] [id number] Monocytes/100 WBC (Bld) 13.0 % Normal [facility] Comment on above: Performed By: #### C MP, LIPD, CBCAD #### [facility] [address] [place], [place] [id number] Neutrophils (Bld) [#/Vol] 3.2 10*3/uL Normal 1.5-7.8 [facility] Comment on above: Performed By: #### C MP, LIPD, CBCAD #### [facility] [address] [place], [place] [id number] Neutrophils/100 WBC (Bld) 44.3 % Normal [facility] Comment on above: Performed By: #### C MP, LIPD, CBCAD #### [facility] [address] [place], [place] [id number] Platelet mean volume (Bld) [Entitic vol] 10.30 fL Normal 7.50-12.50 [facility] Comment on above: Performed By: #### C MP, LIPD, CBCAD #### [facility] [address] [place], [place] [id number] Platelets (Bld) [#/Vol] 453 10*3/uL High 140-400 [facility] Comment on above: Performed By: #### C MP, LIPD, CBCAD #### [facility] [address] [place], [place] [id number] RBC (Bld) [#/Vol] 4.59 10*6/uL Normal 3.90-5.20 [facility] Comment on above: Performed By: #### C MP, LIPD, CBCAD #### [facility] [address] [place], [place] [id number] RDW-SD 45.7 fL Normal 37.0-50.0 [facility] Comment on above: Performed By: #### C MP, LIPD, CBCAD #### [facility] [address] [place], [place] [id number] WBC (Bld) [#/Vol] 7.1 10*3/uL Normal 3.8-11.0 [facility] Comment on above: Performed By: #### C MP, LIPD, CBCAD #### [facility] [address] [place], [place] [id number] Comprehensive Metabolic Pane alfonzo 04-13-2021 Albumin [Mass/Vol] 4.5 g/dL Normal 3.6-5.1 [facility] Comment on above: Performed By: #### C LAURA HOLGUIN, CBCAD #### [facility] [address] [place], [place] [id number] Albumin/Globulin [Mass ratio] 1.6 {ratio} Normal 1.0-2.5 [facility] Comment on above: Performed By: #### C LAURA HOLGUIN, CBCAD #### [facility] [address] [place], [place] [id number] ALP [Catalytic activity/Vol] 125 U/L High 35-119 [facility] Comment on above: Performed By: #### C LAURA HOLGUIN, CBCAD #### [facility] [address] [place], [place] [id number] ALT [Catalytic activity/Vol] 12 U/L Normal 6-33 [facility] Comment on above: Result Comment: 01/20 Female reference range changed. Performed By: #### C LAURA HOLGUIN, CBCAD #### [facility] [address] [place], [place] [id number] Anion gap [Moles/Vol] 20 mmol/L Normal 12-20 [facility] [employer] Comment on above: Result Comment: Effe ctive 02/25/2019 reference range changed. Performed By: #### C LAURA HOLGUIN, CBCAD #### [facility] [address] [place], [place] [id number] AST [Catalytic activity/Vol] 20 U/L Normal 9-34 [facility] [employer] Comment on above: Performed By: #### C LAURA HOLGUIN, CBCAD #### [facility] [address] [place], [place] [id number] Bilirubin [Mass/Vol] 0.55 mg/dL Normal 0.30-1.20 [facility] [employer] [facility] Comment on above: Performed By: #### C LAURA HOLGUIN, CBCAD #### [facility] [address] [place], [place] [id number] BUN/CREA 22 Ratio Normal 6-22 [facility] [employer] [facility] Comment on above: Performed By: #### C LAURA HOLGUIN, CBCAD #### [facility] [address] [place], [place] [id number] Calcium [Mass/Vol] 10.1 mg/dL Normal 8.6-10.2 [facility] [employer] [facility] Comment on above: Performed By: #### C LAURA HOLGUIN, CBCAD #### [facility] [address] [place], [place] [id number] Chloride [Moles/Vol] 104 mmol/L Normal 98-107 [facility] [employer] Comment on above: Performed By: #### C LAURA HOLGUIN, CBCAD #### [facility] [address] [place], [place] [id number] CO2 [Moles/Vol] 24 mmol/L Normal 20-31 [facility] [employer] Comment on above: Performed By: #### C LAURA HOLGUIN, CBCAD #### [facility] [address] [place], [place] [id number] Creatinine [Mass/Vol] 0.9 mg/dL Normal 0.6-1.4 [facility] [employer] Comment on above: Performed By: #### C LAURA HOLGUIN, CBCAD #### [facility] [address] [place], [place] [id number] eGFRAA 71 mL/min/1.73m2 Normal >60 [facility] [employer] [facility] Comment on above: Performed By: #### C LAURA HOLGUIN, CBCAD #### [facility] [address] [place], [place] [id number] eGFRNAA 58 mL/min/1.73m2 Low >60 [facility] [employer] Comment on above: Performed By: #### C LAURA HOLGUIN, CBCAD #### [facility] [address] [place], [place] [id number] Globulin (S) [Mass/Vol] 2.8 g/dL Normal 1.9-3.7 [facility] [employer] Comment on above: Performed By: #### C LAURA HOLGUIN, CBCAD #### [facility] [address] [place], [place] [id number] Glucose [Mass/Vol] 110 mg/dL High 65-99 [facility] [employer] [facility] Comment on above: Result Comment: For FASTING Glucose --- ADA reference ranges: Normal 65-99 mg/dl Prediabetes 100-125 Diabetes >/= 126 Performed By: #### C MP, LIPD, CBCAD #### [facility] [address] [facility] [place] [id number] Potassium [Moles/Vol] 4.3 mmol/L Normal 3.5-5.5 [facility] Comment on above: Performed By: #### C MP, LIPD, CBCAD #### [facility] [address] [facility] [place] [id number] Protein [Mass/Vol] 7.3 g/dL Normal 6.1-8.1 [facility] [employer] [facility] Comment on above: Performed By: #### C MP, LIPD, CBCAD #### [facility] [address] [facility] [place] [id number] Sodium [Moles/Vol] 143 mmol/L Normal 135-146 [facility] [employer] Comment on above: Performed By: #### C MP, LIPD, CBCAD #### [facility] [address] [facility] [place] [id number] Urea nitrogen [Mass/Vol] 20 mg/dL Normal 7-25 [facility] [employer] [facility] Comment on above: Performed By: #### C MP, LIPD, CBCAD #### [facility] [address] [facility] [place] [id number] Lipid Panelon 04-13-2021 Cholesterol [Mass/Vol] 196 mg/dL Normal 125-200 [facility] [employer] Comment on above: Result Comment: Low risk < 200mg/dL Borderline risk 201-239 mg/dl High risk > or equal to 240 Performed By: #### C MP, LIPD, CBCAD #### [facility] [address] [place], [place] [id number] Cholesterol in HDL [Mass/Vol] 46 mg/dL Normal >40 [facility] [employer] Comment on above: Result Comment: High Cardiovascular Risk HDL <40 mg/dL Low Cardiovascular Risk HDL > or equal to 60 mg/dl Performed By: #### C MP, LIPD, CBCAD #### [facility] [address] [facility] [place] [id number] Cholesterol in LDL [Mass/Vol] 98 mg/dL Normal [facility] [employer] Comment on above: Result Comment: LDL ATP III CLASSIFICATION LDL less than 100 mg/dl Optimal LDL 100-129 mg/dl Near or above optimal LDL 130-159 Borderline high LDL 160-189 High LDL greater than 189 mg/dl Very High Performed By: #### C CHELSIE, SARAH BETHD, CBCAD #### [facility] [address] [place], [place] [id number] Cholesterol in VLDL [Mass/Vol] 52 mg/dL Normal [facility] Comment on above: Performed By: #### C CHELSIE, LIPD, CBCAD #### [facility] [address] [place], [place] [id number] Cholesterol.total /Cholesterol in HDL [Mass ratio] 4 {ratio} Normal [facility] Comment on above: Performed By: #### C CHELSIE, LIPD, CBCAD #### [facility] [address] [place], [place] [id number] Triglyceride [Mass/Vol] 262 mg/dL High 30-150 [facility] Comment on above: Result Comment: TRIG ATPIII CLASSIFICATIONS TRIG less than 150 mg/dl Normal TRIG 150-199 mg/dl Borderline High TRIG 200-500 mg/dl High TRIG greather than 500 mg/dl Very High Performed By: #### C CHELSIE, LIPD, CBCAD #### [facility] [address] [place], [place] [id number] Basic Metabolic Panlon 02-17 Anion gap 3 molar conc 9 mmol/L Normal -18 [facility] Comment on above: Performed By: #### C BCDIF, BMP, MG1, PHOS, PT ####[facility] [phone] Calcium mass conc 8.5 mg/dL Normal 8.5-10.5 [facility] Comment on above: Performed By: #### C BCDIF, BMP, MG1, PHOS, PT ####[facility] [place] [phone] Chloride molar conc 109 mmol/L Normal 98-110 [facility] Comment on above: Performed By: #### C BCDIF, BMP, MG1, PHOS, PT ####[place] [phone] CO2 molar conc 25 mmol/L Normal 23-32 [facility] Comment on above: Performed By: #### C BCDIF, BMP, MG1, PHOS, PT ####[place] [phone] Creatinine mass conc 0.62 mg/dL Low 0.70-1.40 [facility] Comment on above: Performed By: #### C BCDIF, BMP, MG1, PHOS, PT ####[place] [phone] eGFR- Amer. >60 Normal >60 [facility] Comment on above: Performed By: #### C BCDIF, BMP, MG1, PHOS, PT ####[place] [phone] GFR/1.73 sq M predicted among non-blacks MDRD vol rate/area (S/P/Bld) mL/min/{1.73_m2} Normal >60 [facility] Comment on above: Performed By: #### C BCDIF, BMP, MG1, PHOS, PT ####[place] [phone] Glucose mass conc 109 mg/dL High 65-100 [facility] Comment on above: Performed By: #### C BCDIF, BMP, MG1, PHOS, PT ####[place] [phone] Potassium molar conc 3.5 mmol/L Normal 3.5-5.0 [facility] Comment on above: Performed By: #### C BCDIF, BMP, MG1, PHOS, PT ####[place] [phone] Sodium molar conc 143 mmol/L Normal 132-148 [facility] Comment on above: Performed By: #### C BCDIF, BMP, MG1, PHOS, PT ####[place] [phone] Urea nitrogen mass conc 6 mg/dL Low 8-25 [facility] Comment on above: Performed By: #### C BCDIF, BMP, MG1, PHOS, PT ####[place] [address] CBC and Differentialon 02-17 Abs Baso <0.03 Normal <0.11 [facility] Comment on above: Performed By: #### C BCDIF, BMP, MG1, PHOS, PT ####[place] [address] Abs Cherry 1.46 k/uL High <0.87 [facility] Comment on above: Performed By: #### C BCDIF, BMP, MG1, PHOS, PT ####[place] [address] Abs Neut 7.50 k/uL Normal 1.45-7.50 [facility] Comment on above: Performed By: #### C BCDIF, BMP, MG1, PHOS, PT ####[place] [address] Basophils/100 WBC Auto (Bld) 0.2 % Normal [facility] Comment on above: Performed By: #### C BCDIF, BMP, MG1, PHOS, PT ####[place] [address] DTYPE Auto Diff Normal [facility] Comment on above: Performed By: #### C BCDIF, BMP, MG1, PHOS, PT ####[place] [id number] Eosinophils Auto #/vol (Bld) 0.29 10*3/uL Normal <0.46 [facility] Comment on above: Performed By: #### C BCDIF, BMP, MG1, PHOS, PT ####[place] [id number] Eosinophils/100 WBC Auto (Bld) 2.8 % Normal [facility] Comment on above: Performed By: #### C BCDIF, BMP, MG1, PHOS, PT ####[place] [phone] Erythrocyte distribution width Auto Ratio (RBC) 16.5 % High 11.5-15.0 [facility] Comment on above: Performed By: #### C BCDIF, BMP, MG1, PHOS, PT ####[place] [phone] Hematocrit Auto Volume Fraction (Bld) 30.2 % Low 36.0-46.0 [facility] Comment on above: Performed By: #### C BCDIF, BMP, MG1, PHOS, PT ####[place] [phone] Hemoglobin mass conc (Bld) 9.5 g/dL Low 11.5-15.5 [facility] Comment on above: Performed By: #### C BCDIF, BMP, MG1, PHOS, PT ####[place] [phone] Lymphocytes Auto #/vol (Bld) 0.95 10*3/uL Low 1.00-4.00 [facility] Comment on above: Performed By: #### C BCDIF, BMP, MG1, PHOS, PT ####[address] Lymphocytes/100 WBC Auto (Bld) 9.3 % Normal [facility] Comment on above: Performed By: #### C BCDIF, BMP, MG1, PHOS, PT ####[place] [phone] MCH Auto Entitic mass (RBC) 28.7 pG Normal 26.0-34.0 [facility] Comment on above: Performed By: #### C BCDIF, BMP, MG1, PHOS, PT ####[place] [phone] MCHC Auto mass conc (RBC) 31.5 g/dL Normal 30.5-36.0 [facility] Comment on above: Performed By: #### C BCDIF, BMP, MG1, PHOS, PT ####[place] [phone] MCV Auto Entitic volume (RBC) 91.2 fL Normal 80.0-100.0 [facility] Comment on above: Performed By: #### C BCDIF, BMP, MG1, PHOS, PT ####[place] [phone] Monocytes/100 WBC Auto (Bld) 14.3 % Normal [facility] Comment on above: Performed By: #### C BCDIF, BMP, MG1, PHOS, PT ####[place] [phone] Neutrophils/100 WBC Auto (Bld) 73.4 % Normal [facility] Comment on above: Performed By: #### C BCDIF, BMP, MG1, PHOS, PT ####[place] [phone] Platelet mean volume Auto Entitic volume (Bld) 9.6 fL Normal 9.0-12.7 [facility] Comment on above: Performed By: #### C BCDIF, BMP, MG1, PHOS, PT ####[place] [phone] Platelets Auto #/vol (Bld) 248 10*3/uL Normal 150-400 [facility] Comment on above: Performed By: #### C BCDIF, BMP, MG1, PHOS, PT ####[place] [phone] RBC Auto #/vol (Bld) 3.31 10*6/uL Low 3.90-5.20 [facility] Comment on above: Performed By: #### C BCDIF, BMP, MG1, PHOS, PT ####[place] [phone] WBC Auto #/vol (Bld) 10.22 10*3/uL Normal 3.70-11.00 [facility] Comment on above: Performed By: #### C BCDIF, BMP, MG1, PHOS, PT ####[place] [id number] [place] [phone] Magnesiumon 02-17-2018 Magnesium mass conc 2.0 mg/dL Normal 1.7-2.6 [facility] Comment on above: Performed By: #### C BCDIF, BMP, MG1, PHOS, PT ####[place] [phone] NURSING PROGon 02-17-2018 Protein mass conc HNO ID: [id number] thor: Heidy (Rn) Favian Boyleice: (none)Author Type: Registered NurseType: Nursing Progress NoteFiled: 02/17/2018 1:46 PMNote Text: Nursing Progress NotePatient Name: Brenda McclainMRN: [id number] Location: [id number] walked with patient on RA satting 94%.[id number] SR paged [id number] Brenda Mcclain: phos 1.4 this AM does she needanything? ThanksHeidy [id number] receivedAguilar Juarez CM [facility] is set up.This note was completed by: Heidy Boyle RN [facility] Protein mass conc HNO ID: [id number] thor: Franchesca (Rn) Favian Beebeice: NursingAuthor Type: Registered NurseType: Nursing Progress NoteFiled: 02/17/2018 12:33 AMNote Text: Nursing Progress NotePatient Name: Brenda McclainMRN: [id number] Location: [id number] Daily Note:AANDO times 3. Patient has pain [...] was completed by: Franchesca Beebe RN Normal [facility] Phosphoruson 02-17-2018 Phosphate mass conc 1.4 mg/dL Low 2.5-4.5 [facility] Comment on above: Performed By: #### C BCDIF, BMP, MG1, PHOS, PT ####[facility] [place], [place] [phone] Protimeon 02-17-2018 INR Coag RelTime (Bld) 1.0 {INR} Normal 0.9-1.3 [facility] Comment on above: Result Comment: Danni min K Antagonist (VKA) Therapeutic Range: INR 2 to 3 (Target INR of 2.5)Note: For patients treated with VKA drugs, such as warfarin, the [place] [employer] 2012 Guideline recommends [...] al. Chest 2012, 141:7S-47SNishimura RA, et al. [facility] 2017, 70: 252-289 Performed By: #### C BCDIF, BMP, MG1, PHOS, PT ####[facility] [place], [place] [phone] PT Sec 10.6 sec Normal 9.7-13.0 [facility] Comment on above: Performed By: #### C BCDIF, BMP, MG1, PHOS, PT ####[facility] [place], [place] [phone] Amylase,Body Fluidon 02-16-2 018 Amylase,Body Fluid 142 U/L Critically abnormal See Comment [facility] Comment on above: Result Comment: (NOT [...] CLSI document C49-A. JOSEFINA Giordano: Clinical LaboratoryStandards [place]; 2007.3. Donovan VIGILH, Neel MCLAUGHLIN, Renzo DJ. Use of cyst fluid CEA,CA19-9, and amylase for evaluation of pancreatic lesions. ClinicalBiochemistry. 2009;42:3517-4184.This test was developed and its performance characteristicsdetermined by [facility] ([facility]).It has not been cleared or approved by the FDA. -[facility] is regulatedunder CLIA as qualified to perform high-complexity testing.This test is used for clinical purposes. It should not be regarded asinvestigational or for research. Performed By: #### F AMYL ####[place] [id number] [place] [address] Fluid Type Other Normal [facility] Comment on above: Result Comment: ACE D RAIN ABDOMEN Performed By: #### F AMYL ####[place] [address] CASE MANAGEMon 02-16-2018 CASE MANAGEM HNO ID: [id number] thor: TRUDY Becerra Rnervice: Case ManagementAuthor Type: Registered NurseType: Care Mgt Progress NoteFiled: 02/16/2018 1:55 PMNote Text:CARE MANAGEMENT DISCHARGE NOTESERVICE DATE: 02/16/2018SERVICE TIME: 1:55 PM LOS: 2 daysIM letter given to patient on 02.16.2018.SIGNATURE: Luisito Bill RN PATIENT NAME: Brenda Cooper: February 16, 2018 : 1:55 PM PAGER/CONTACT #: [phone] [facility] CASE MANAGEM HNO ID: [id number] thor: TRUDY Becerra Rnervice: Case ManagementAuthor Type: Registered NurseType: Care Mgt Progress NoteFiled: 02/16/2018 1:44 PMNote Text:CARE MANAGEMENT DISCHARGE NOTESERVICE DATE: 02/16/2018SERVICE TIME:1:43 PM LOS: 2 days d/c plan is faye butler [facility] # [phone] set to see pt [id number] pending d/cSIGNATURE: Luisito Bill RN PATIENT NAME: Brenda Cooper: February 16, 2018 : 1:43 PM PAGER/CONTACT #: [phone] [facility] CASE MGT INIT [place] 2017 CASE MGT INIT ERIC HNO ID: [id number]: Luisito Garnica (Rn) TRUDY Billervice: Case ManagementAuthor Type: Registered NurseType: Care Mgt Initial AssessmentFiled: 02/16/2018 9:01 AMNote Text:CARE MANAGEMENT: ASSESSMENT AND DISCHARGE PLANSERVICE DATE: 02/16/2018SERVICE TIME: 8:58 AMPRIMARY CARE PHYSICIAN:Pam Villalobos, MDPhone: OLVHVLPJW STATUS: InpatientMEDICAL:Patient/Repres entative Stated Goals:To improve my functional statusHealth Insurance: MEDICARE A AND BMedicareHealth Issues Impacting Discharge Plan: IBSLast Admission Date: Previous admit date: 01/23/2008Is this Within the Past 30 days? NoAdvance Directive:Current Advance Directive: NoneIn Chart: NoCare Remediation Project Engineer Attempted to Assist with AD Completion: YesAction: [...] ShowerTub bench/chairHas the Patient Been in a Usp Facility in the Past 30 days? NoSOCIAL:Living Arrangement: HomeLives With: SpouseFinancial Resources: RetiredPrimary Contact: Extended Emergency Contact InformationPrimary Emergency Contact: Danilo McclainAddress: [address] [place] [address] [facility] Gikpsq Idklraha: SpouseSecondary Emergency Contact: Lea Montalvo Kueeem Zwwqqrvp: DaughterSupportive: YesOther Important Patient Contacts: spouse cell [phone] Assessment:Caregiver is ready, willing and able to meet the patient's needs asrecommended by the inter-professional team? YesPatient's transition needs and plan for meeting these needs: pt requiresassistance w adls, therapy recommending C and pt agreeable andrequesting [facility]- referral sent and working on socYudy the patient have an acute stroke diagnosis, or has the patient had astroke during this admission? NoMedication Adherence:I am convinced of the importance of my prescription medication: Agreecompletely - 0I worry that my prescription medication will do more harm than good to meDisagree completely - 0I feel financially burdened by my vdf-ve-ihzada expenses for myprescription medication: Disagree mostly -0Patient [...] IPTA,lives w spouse plan dc over weekend [facility] referral started working on SOC Yolanda ROMO for [id number]: Luisito Bill RN PATIENT NAME: Brenda McclainDATE: February 16, 2018 : 8:58 AM PAGER/CONTACT #: [phone] [facility] NURSING PROGon 02-16-2018 Protein mass conc HNO ID: [id number] thor: Johanne (Rn) [place], RNService: NursingAuthor Type: Registered NurseType: Nursing Progress NoteFiled: 02/16/2018 5:53 PMNote Text: Nursing Progress NotePatient Name: Brenda McclainMRN: [id number] [facility]3B13/UE-XC2M-00 Pt A+Ox3, pleasant. Abdomen soft AND tender, [...] note was completed by: Johanne Sarkar RN [facility] PROGRESSon 02-16-2018 Protein mass conc HNO ID: [id number] thor: Ant (Res)(Hist) SiderisService: General SurgeryAuthor Type: ResidentType: Progress NotesFiled: 02/17/2018 10:06 AMNote Text: Attestat ion signed by Alfie Martinez at 02/17/2018 11:22 AMPatient doing well. Progressing without any postop concerns. DC planning.Splenectomy vaccines to be given likely before DC home. General Surgery Progress NoteName: Brenda McclainN: [id number] update:Overall, patient is doing well. No significant [...] 02/16/18 0659 02/16/18 07 - 02/17/18 0659Shift 3350-2543 8166-2743 4929-7418 24 Hour Total 6193-5537 [id number] 24 Hour TotalINTAKE PO 0 650 650 [...] prior to DC if still here in 3-2sukc-Rdiuqkiwy incentive spirometry and ambulation, wean oxygen as tolerated-SCD's and SQH for DVT prophylaxis-will likely discharge today or tomorrowAntonios MD Fred[facility]Genereg[facility], PGY-5Pager: [phone] Surgery Pager: [phone], weekdays 6A-6POn call pager: [phone], nights and weekends? Normal [facility] Phosphoruson 02-16-2018 Phosphate mass conc 1.7 mg/dL Low 2.5-4.5 [facility] Comment on above: Performed By: #### P HOS ####[facility] [place], [place] [phone] APTTon 02-15-2018 aPTT Coag time (Bld) 20.8 s Low 23.0-32.4 [facility] Comment on above: Result Comment: Unfr [...] laboratory APTT reagent in use throughout the [facility]. Performed By: #### C BCDIF, PTT, PT, AMYL, BMP, MG1 ####[facility] [place], [place] [phone] Amylaseon 02-15-2018 Amylase enzyme act/vol 228 U/L High 0-137 [facility] Comment on above: Performed By: #### C BCDIF, PTT, PT, AMYL, BMP, MG1 ####[facility] [place], [place] [phone] Amylase,Body Fluidon 02-15-2 018 Amylase,Body Fluid 64 U/L Critically abnormal See Comment [facility] Comment on above: Result Comment: (NOT [...] CLSI document C49-A. JOSEFINA Giordano: Clinical LaboratoryStandards [place]; 2007.3. Donovan VIGIL, Neel MCLAUGHLIN, Renzo DJ. Use of cyst fluid CEA,CA19-9, and amylase for evaluation of pancreatic lesions. ClinicalBiochemistry. 2009;42:7748-0845.This test was developed and its performance characteristicsdetermined by [facility] Pathology andLaboratory Medicine [place] ([facility]).It has not been cleared or approved by the FDA. -[facility] is regulatedunder CLIA as qualified to perform high-complexity testing.This test is used for clinical purposes. It should not be regarded asinvestigational or for research. Performed By: #### F AMYL ####[place] [phone] [address] [place] [phone] Fluid Type Gopi Pedro Drain Normal [facility] Comment on above: Performed By: #### F AMYL ####[place] [phone] [phone] Basic Metabolic Panlon 02-15 Anion gap 3 molar conc 11 mmol/L Normal 9-18 [facility] Comment on above: Performed By: #### C BCDIF, PTT, PT, AMYL, BMP, MG1 ####[place] [phone] Calcium mass conc 8.6 mg/dL Normal 8.5-10.5 [facility] Comment on above: Performed By: #### C BCDIF, PTT, PT, AMYL, BMP, MG1 ####[place] [phone] Chloride molar conc 105 mmol/L Normal 98-110 [facility] Comment on above: Performed By: #### C BCDIF, PTT, PT, AMYL, BMP, MG1 ####[place] [phone] CO2 molar conc 24 mmol/L Normal 23-32 [facility] Comment on above: Performed By: #### C BCDIF, PTT, PT, AMYL, BMP, MG1 ####[place] [phone] Creatinine mass conc 0.72 mg/dL Normal 0.70-1.40 [facility] Comment on above: Performed By: #### C BCDIF, PTT, PT, AMYL, BMP, MG1 ####[place] [phone] eGFR- Amer. >60 Normal >60 [facility] Comment on above: Performed By: #### C BCDIF, PTT, PT, AMYL, BMP, MG1 ####[place] [phone] GFR/1.73 sq M predicted among non-blacks MDRD vol rate/area (S/P/Bld) mL/min/{1.73_m2} Normal >60 [facility] Comment on above: Performed By: #### C BCDIF, PTT, PT, AMYL, BMP, MG1 ####[place] [phone] Glucose mass conc 195 mg/dL High 65-100 [facility] Comment on above: Performed By: #### C BCDIF, PTT, PT, AMYL, BMP, MG1 ####[place] [phone] Potassium molar conc 4.3 mmol/L Normal 3.5-5.0 [facility] Comment on above: Performed By: #### C BCDIF, PTT, PT, AMYL, BMP, MG1 ####[place] [phone] Sodium molar conc 140 mmol/L Normal 132-148 [facility] Comment on above: Performed By: #### C BCDIF, PTT, PT, AMYL, BMP, MG1 ####[place] [phone] Urea nitrogen mass conc 14 mg/dL Normal 8-25 [facility] Comment on above: Performed By: #### C BCDIF, PTT, PT, AMYL, BMP, MG1 ####[place] [phone] CBC and Differentialon 02-15 Abs Baso <0.03 Normal <0.11 [facility] Comment on above: Performed By: #### A BINTB ####[facility] [address] [place], [place] [phone] Abs Cherry 0.74 k/uL Normal <0.87 [facility] Comment on above: Performed By: #### A BINTB ####[place] [phone] Abs Neut 11.13 k/uL High 1.45-7.50 [facility] Comment on above: Performed By: #### A BINTB ####[place] [phone] Basophils/100 WBC Auto (Bld) 0.1 % Normal [facility] Comment on above: Performed By: #### A BINTB ####[place] [phone] DTYPE Auto Diff Normal [facility] Comment on above: Performed By: #### A BINTB ####[place] [phone] Eosinophils Auto #/vol (Bld) 10*3/uL Normal <0.46 [facility] Comment on above: Performed By: #### A BINTB ####[place] [phone] Eosinophils/100 WBC Auto (Bld) 0.0 % Normal [facility] Comment on above: Performed By: #### A BINTB ####[place] [phone] Erythrocyte distribution width Auto Ratio (RBC) 16.6 % High 11.5-15.0 [facility] Comment on above: Performed By: #### A BINTB ####[place] [phone] Hematocrit Auto Volume Fraction (Bld) 35.4 % Low 36.0-46.0 [facility] Comment on above: Performed By: #### A BINTB ####[place] [phone] Hemoglobin mass conc (Bld) 11.6 g/dL Normal 11.5-15.5 [facility] Comment on above: Performed By: #### A BINTB ####[address] [phone] Lymphocytes Auto #/vol (Bld) 0.65 10*3/uL Low 1.00-4.00 [facility] Comment on above: Performed By: #### A BINTB ####[address] [phone] Lymphocytes/100 WBC Auto (Bld) 5.2 % Normal [facility] Comment on above: Performed By: #### A BINTB ####[place] [phone] MCH Auto Entitic mass (RBC) 28.9 pG Normal 26.0-34.0 [facility] Comment on above: Performed By: #### A BINTB ####[place] [phone] MCHC Auto mass conc (RBC) 32.8 g/dL Normal 30.5-36.0 [facility] Comment on above: Performed By: #### A BINTB ####[place] [phone] MCV Auto Entitic volume (RBC) 88.3 fL Normal 80.0-100.0 [facility] Comment on above: Performed By: #### A BINTB ####[place] [phone] Monocytes/100 WBC Auto (Bld) 5.9 % Normal [facility] Comment on above: Performed By: #### A BINTB ####[place] [phone] Neutrophils/100 WBC Auto (Bld) 88.8 % Normal [facility] Comment on above: Performed By: #### A BINTB ####[address] [phone] Platelet mean volume Auto Entitic volume (Bld) 9.3 fL Normal 9.0-12.7 [facility] Comment on above: Performed By: #### A BINTB ####[facility] [place], [place] [phone] Platelets Auto #/vol (Bld) 261 10*3/uL Normal 150-400 [facility] Comment on above: Performed By: #### A BINTB ####[address] [phone] RBC Auto #/vol (Bld) 4.01 10*6/uL Normal 3.90-5.20 [facility] Comment on above: Performed By: #### A BINTB ####[place] [phone] WBC Auto #/vol (Bld) 12.53 10*3/uL High 3.70-11.00 [facility] Comment on above: Performed By: #### A BINTB ####[place] [phone] Magnesiumon 02-15-2018 Magnesium mass conc 2.1 mg/dL Normal 1.7-2.6 [facility] Comment on above: Result Comment: Revi ewed Performed By: #### C BCDIF, PTT, PT, AMYL, BMP, MG1 ####[facility] [place], [place] [phone] NURSING PROGon 02-15-2018 Protein mass conc HNO ID: [id number] thor: Dionisio (Rn) TRUDY Leungervice: (none)Author Type: Registered NurseType: Nursing Progress NoteFiled: 02/15/2018 6:27 PMNote Text: Nursing Progress NotePatient Name: Brenda Miller CoryN: [id number] Location: [facility]3B13/LB-II2N-41 Daily Note:02/15/18 1030- Patient arrived to room [...] note was completed by: Dionisio Leung RN [facility] Protein mass conc HNO ID: [id number] thor: Amber Mann) Ari Martinez: (none)Author Type: Registered NurseType: Nursing Progress NoteFiled: 02/15/2018 10:31 AMNote Text: Nursing Progress NotePatient Name: Brenda McclainMRN: [id number] Location: [facility]/EM-HDL-33 Daily Note:0700. Report received from community educator RN. Patient resting comfortably inbed at this [...] note was completed by: Amber Martinez RN [facility] Protein mass conc HNO ID: [id number] thor: Negro AlmarazRn) Ari Beaulieu: (none)Author Type: Registered NurseType: Nursing Progress NoteFiled: 02/15/2018 8:02 AMNote Text: Nursing Progress NotePatient Name: Brenda McclainMRN: [id number] Location: [facility]/LS-JPM-33 Daily Note:2315: Received report from Aaron DIETZ.0000: Assessment complete, see flow sheet. VSS.0344: Reassessment complete, see flow sheet. PRN labetolol given per MARfor SBP . 160. All other VSS.0725: Report given to HERMINIO ClarkThis note was completed by: Negro Beaulieu RN [facility] Protein mass conc HNO ID: [id number] thor: Aaron (Herminio) TRUDY Mcdermottervice: (none)Author Type: Registered NurseType: Nursing Progress NoteFiled: 02/14/2018 11:21 PMNote Text: Nursing Progress NotePatient Name: Brenda McclainN: [id number] Location: [place] [address]/GA-KWU-27 Daily Note:2029: Patient arrived to SICU bed [...] note was completed by: Aaron Mcdermott RN [facility] PROGRESSon 02-15-2018 Protein mass conc HNO ID: [id number] thor: Surendra (Elva) Mooseervice: General SurgeryAuthor Type: ResidentType: Progress NotesFiled: 02/15/2018 8:42 AMNote Text:General Surgery Progress NoteName: Brenda McclainMRN: [id number] update:Overall, patient is doing well. No significant [...] 02/15/18 0659 02/15/18 0700 - 02/16/18 0659Shift 9459-2604 0182-3829 4752-6674 24 Hour Total 3926-0295 7270-17416580-7831 24 Hour TotalINTAKE IV 3500 927 4427 [...] pneumococcal,meningococcal, influenza)-Encourage incentive spirometry and ambulation-SCD's and [facility] for DVT prophylaxis-Dispo: [facility] todayDiscussed with Dr. Garsia?M REID Acosta-1 Resident, General SurgeryPager: [phone]; Dated: February 15, 2018, 8:38 AM? Normal [facility] Phosphoruson 02-15-2018 Phosphate mass conc 2.9 mg/dL Normal 2.5-4.5 [facility] Comment on above: Performed By: #### P HOS ####[place] [address] [place], [place] [phone] Protimeon 02-15-2018 INR Coag RelTime (Bld) 1.0 {INR} Normal 0.9-1.3 [facility] Comment on above: Result Comment: Danni min K Antagonist (VKA) Therapeutic Range: INR 2 to 3 (Target INR of 2.5)Note: For patients treated with VKA drugs, such as warfarin, the [place] [employer] 2012 Guideline recommends [...] al. Chest 2012, 141:7S-47SNishtony RA, et al. [facility] 2017, 70: 252-289 Performed By: #### C BCDIF, PTT, PT, AMYL, BMP, MG1 ####[place] [address] [place], [place] [phone] PT Sec 10.5 sec Normal 9.7-13.0 [facility] Comment on above: Performed By: #### C BCDIF, PTT, PT, AMYL, BMP, MG1 ####[place] [address] [place], [place] [phone] THERAPY NTon 02-15-2018 THERAPY NT HNO ID: [id number] thor: Milagro (Ot) YocabetService: Occupational TherapyAuthor Type: Occupational TherapistType: Therapy (PT/OT/Speech/Resp)Filed: 02/15/2018 10:26 AMNote Text:Occupational Therapy EvaluationSERVICE DATE: 02/15/2018SERVICE TIME: 849 to 912ROOM: [id number] Discharge Disposition: Home OTAnticipated Discharge Needs: Physical [...] of dailyliving (ADL)Interventions Provided: Evaluation;Self Alf Management (22578)$ Evaluation-Low (23046) Billed Units: 1 unitSelf Alf Management (34742) Treatment Minutes: 81 unitSkilled Intervention(s): Provided cuing [...] February 15, 2018 : 10:23 AM Normal [facility] THERAPY NT HNO ID: [id number] thor: Shannon (Pt) ThoburnService: Physical TherapyAuthor Type: Physical TherapistType: Therapy (PT/OT/Speech/Resp)Filed: 02/15/2018 9:24 AMNote Text:Physical Therapy EvaluationSERVICE DATE: 02/15/2018SERVICE TIME: 0840 to 0903ROOM: [id number] Discharge Disposition: Home PTPT Recommendations to Nursing: [...] INTERVENTIONS:Therapy Diagnosis: Reduced mobility-otherInterventions Provided: Evaluation;Gait Training (32358)$ Evaluation-High (18363) Billed Units: 1 unitGait Training (55814) Treatment Minutes: 81 unitSkilled Intervention(s): Instruction in [...] McclainDATE: February 15, 2018 : 9:23 AM [facility] ALLIED HEALTHon 02-14-2018 ALLIED HEALTH HNO ID: [id number] thor: Mariel Ervin (Rt)vice: RadiologyAuthor Type: TechnicianType: Allied HealthFiled: 02/14/2018 7:12 PMNote Text: Radiology Service Progress NotePATIENT NAME: Brenda McclainMRN: [id number] OF SERVICE: February 14, 2018TIME: 7:11 PMPATIENT IDENTITY VERIFICATION COMPLETED USING TWO (2) METHODS: Patientconfirmed name verbally and ID band matches..PATIENT GENDER DATA: Female. status: : NoBreastfeeding status: NO.PATIENT RELEVANT IMPLANT DATA REVIEWED: Not ApplicableRADIOLOGY DEPARTMENT: General X-ray: Exam(s) Completed: Abdomen X-RayAbdomenPERIPHERAL IV DATA: Not applicableSIGNED BY: Mike Ervin 2017 7:11 PM [facility] ANES Christianne 02-14-2018 ANES POST HNO ID: [id number] thor: Ryan Cruzervice: AnesthesiologyAuthor Type: AnesthesiologistType: Anesthesia [...] 14, 2018 : 8:36 PM PAGER/CONTACT #: [phone] [facility] ANES PREOPon 02-14-2018 ANES PREOP HNO ID: [id number] thor: John TseeService: AnesthesiologyAuthor Type: AnesthesiologistType: Anesthesia PreOpFiled: 02/15/2018 7:09 AMNote Text:REGIONAL ANESTHESIOLOGY DAY OF SURGERY NOTEPATIENT NAME: Brenda McclainMRN: [id number]: 1948Procedure(s) (LRB):LAPAROSCOPIC RPR PARAESOHAGEAL HERNIA W/ FUNDOPLASTY [...] EVERY 4 HOURS ASNEEDEDInpatient medications reviewed in [facility].I have interviewed and examined the patient. I have reviewed the medicalrecord and/or the pre-anesthesia evaluation, pertinent labs, and testresults.Significant changes in the patient's condition since the History andPhysical, not otherwise documented in primary service progress notes: NoThis contains updated information obtained within 48 hours ofSurgery/Procedure.2 antibodies known on type and screen. Discussed with surgeon.SIGNATURE: Monica Cummings APRN.MAGNETIC TAPE TYPEWRITER OPERATOR PATIENT NAME: Brenda McclainDATE: February 14, 2018 : 3:19 PM PAGER/CONTACT #: Normal [facility] APTTon 02-14-2018 aPTT Coag time (Bld) 21.8 s Low 23.0-32.4 [facility] Comment on above: Result Comment: Unfr [...] laboratory APTT reagent in use throughout the [facility]. Performed By: #### A BINTB ####[facility] [place], [place] [phone] BRIEF OP NOTon 02-14-2018 BRIEF OP NOT HNO ID: [id number] thor: Nataly Leeervice: General SurgeryAuthor Type: ResidentType: Brief Op NoteFiled: 02/14/2018 8:48 PMNote Text:BRIEF OP NOTELOG ID: [id number]/Procedure Date: 02/14/2018Incision/Procedure Start Time: 3:11 PMIncision Close/Procedure End Time: 7:58 PMSurgeon(s)/Proceduralist(s) and Forestry Patrolman(s):Surgeon(s) and Role: * Monica Rodriguez) Garsia - [...] 2018 : 8:26 PM PAGER/CONTACT #: Normal [facility] Basic Metabolic Panlon 02-14 Anion gap 3 molar conc 12 mmol/L Normal 11-07 [facility] Comment on above: Performed By: #### A BINTB ####[facility] [address] [place], [place] [phone] Calcium mass conc 8.3 mg/dL Low 8.5-10.5 [facility] Comment on above: Performed By: #### A BINTB ####[place] [address] [place] [phone] Chloride molar conc 105 mmol/L Normal 98-110 [facility] Comment on above: Performed By: #### A BINTB ####[address] [phone] CO2 molar conc 24 mmol/L Normal 23-32 [facility] Comment on above: Performed By: #### A BINTB ####[place] [phone] Creatinine mass conc 0.73 mg/dL Normal 0.70-1.40 [facility] Comment on above: Performed By: #### A BINTB ####[place] [phone] eGFR- Amer. >60 Normal >60 [facility] Comment on above: Performed By: #### A BINTB ####[place] [phone] GFR/1.73 sq M predicted among non-blacks MDRD vol rate/area (S/P/Bld) mL/min/{1.73_m2} Normal >60 [facility] Comment on above: Performed By: #### A BINTB ####[place] [phone] Glucose mass conc 176 mg/dL High 65-100 [facility] Comment on above: Performed By: #### A BINTB ####[place] [phone] Potassium molar conc 4.0 mmol/L Normal 3.5-5.0 [facility] Comment on above: Performed By: #### A BINTB ####[place] [phone] Sodium molar conc 141 mmol/L Normal 132-148 [facility] Comment on above: Performed By: #### A BINTB ####[place] [phone] Urea nitrogen mass conc 12 mg/dL Normal 8-25 [facility] Comment on above: Performed By: #### A BINTB ####[place] [phone] CBC and Differentialon 02-14 Abs Baso <0.03 Normal <0.11 [facility] Comment on above: Performed By: #### A BINTB ####[place] [phone] Abs Cherry 0.58 k/uL Normal <0.87 [facility] Comment on above: Performed By: #### A BINTB ####[place] [phone] Abs Neut 9.32 k/uL High 1.45-7.50 [facility] Comment on above: Performed By: #### A BINTB ####[place] [phone] Basophils/100 WBC Auto (Bld) 0.0 % Normal [facility] Comment on above: Performed By: #### A BINTB ####[place] [phone] DTYPE Auto Diff Normal [facility] Comment on above: Performed By: #### A BINTB ####[place] [phone] Eosinophils Auto #/vol (Bld) 10*3/uL Normal <0.46 [facility] Comment on above: Performed By: #### A BINTB ####[place] [phone] Eosinophils/100 WBC Auto (Bld) 0.0 % Normal [facility] Comment on above: Performed By: #### A BINTB ####[place] [phone] Erythrocyte distribution width Auto Ratio (RBC) 16.8 % High 11.5-15.0 [facility] Comment on above: Performed By: #### A BINTB ####[place] [phone] Hematocrit Auto Volume Fraction (Bld) 34.4 % Low 36.0-46.0 [facility] Comment on above: Performed By: #### A BINTB ####[place] [phone] Hemoglobin mass conc (Bld) 11.2 g/dL Low 11.5-15.5 [facility] Comment on above: Performed By: #### A BINTB ####[place] [phone] Lymphocytes Auto #/vol (Bld) 0.79 10*3/uL Low 1.00-4.00 [facility] Comment on above: Performed By: #### A BINTB ####[place] [phone] Lymphocytes/100 WBC Auto (Bld) 7.4 % Normal [facility] Comment on above: Performed By: #### A BINTB ####[place] [phone] MCH Auto Entitic mass (RBC) 29.0 pG Normal 26.0-34.0 [facility] Comment on above: Performed By: #### A BINTB ####[place] [phone] MCHC Auto mass conc (RBC) 32.6 g/dL Normal 30.5-36.0 [facility] Comment on above: Performed By: #### A BINTB ####[place] [phone] MCV Auto Entitic volume (RBC) 89.1 fL Normal 80.0-100.0 [facility] Comment on above: Performed By: #### A BINTB ####[place] [address] [place], [place] [phone] Monocytes/100 WBC Auto (Bld) 5.4 % Normal [facility] Comment on above: Performed By: #### A BINTB ####[address] [place], [place] [phone] Neutrophils/100 WBC Auto (Bld) 87.2 % Normal [facility] Comment on above: Performed By: #### A BINTB ####[address] [phone] Platelet mean volume Auto Entitic volume (Bld) 9.3 fL Normal 9.0-12.7 [facility] Comment on above: Performed By: #### A BINTB ####[address] [phone] Platelets Auto #/vol (Bld) 263 10*3/uL Normal 150-400 [facility] Comment on above: Performed By: #### A BINTB ####[address] [phone] RBC Auto #/vol (Bld) 3.86 10*6/uL Low 3.90-5.20 [facility] Comment on above: Performed By: #### A BINTB ####[address] [phone] WBC Auto #/vol (Bld) 10.69 10*3/uL Normal 3.70-11.00 [facility] Comment on above: Performed By: #### A BINTB ####[address] [phone] Confirm Blood Typeon 018 ABO/RH(D) Positive Normal [facility] Comment on above: Performed By: #### C ONABO ####[facility] [place], [place] [phone] HISTORY PHYSICALon 12-26-201 8 HISTORY PHYSICAL HNO ID: [id number] thor: Arsenio (Res) HaddadService: General SurgeryAuthor Type: [...] 77 BP: 125/80 Resp: 18 SpO2: 96 %Cedar Miriam Readings: Not applicableRESPIRATORYMechanical Ventilation: No. Supplemental [...] 14, 2018 : 8:52 PM PAGER/CONTACT #: [phone] Normal [facility] Magnesiumon 02-14-2018 Magnesium mass conc 1.4 mg/dL Low 1.7-2.6 [facility] Comment on above: Performed By: #### A BINTB ####[facility] [place], [place] [phone] NURSING PROGon 02-14-2018 Protein mass conc HNO ID: [id number] Author: Juanita (Rn) HERMINIO Broussard Service: Nursing Author Type: Registered Nurse Type: Nursing Progress Note Filed: 02/14/2018 6:12 PM Note Text: converted to open procedure at 1720 Normal [facility] OPERATIVE NOon 02-14-2018 OPERATIVE NO HNO ID: [id number] thor: Monica Rodriguez) ChrisinService: General SurgeryAuthor Type: PhysicianType: Operative ReportFiled: 02/19/2018 3:10 PMNote Text:[facility] - Operative ReportBRENDA MCCLAIN LDOB: 8AGE: 68.SEX: FMRN: [id number] TYPE: IHOSP SVC: GENSLOCATION: [id number] PHYSICIAN: MADI Gamez NUMBER: [id number] OF SURGERY/PROCEDURE: 02/14/2018INCISION/PROCEDURE START TIME: 1511 hours.INCISION [...] entire sac was dissected out from themediastinum.A Olney drain was passed around the esophagus. Further dissection wascontinued using the Harmonic scalpel. All the adhesions of the sac tothe mediastinum were completely lysed. 2 cm to 3 cm length ofesophagus was noted to be easily inside the abdomen. Next, weproceeded with laparoscopic closure of the posterior ellen. Multipleinterrupted trunll-eo-rjqkc stitches using silk was used to close [...] anycomplications was noted. Next, we passed the 58-Armenian bougie intothe stomach. A 360 degree wrap [...] without any evidence of any burning.Monica Garsia MDTA:[id number] #: [id number]: 02/14/2018 20:43:04 [facility] PT EDon 02-14-2018 PT ED HNO ID: [id number] thor: Haven (Rn) TRUDY Famervice: (none)Author Type: Registered NurseType: Patient EducationFiled: 02/14/2018 12:36 PMNote Text:PATIENT EDUCATION TOPIC: PROCEDURE / SURGERY: Pre-op Teaching:ProtocolsPATIENT NAME: Brenda Miller SarahiN: [id number] LOCATION: FV OR POOL/FV OR POOLREADINESS TO LEARNCOGNITIVE ABILITY: Alert and orientedMOTIVATION TO LEARN: EagerFAMILY SUPPORT: None - Unavailable/disinterestedINSTRU CTION PROVIDED TO: PatientPATIENT LEARNS BEST BY: Individual InstructionFACTORS AFFECTING LEARNING: NonePHYSICAL LIMITATIONS AFFECTING LEARNING: NoneLEARNING RESPONSEDIAGNOSIS: ADULT: Well AdultPATIENT/FAMILY RESPONSE: Verbalizes understanding of: PNB-NFWSDVMDQFOBCARBWSVQJ-Aaiie ct action to take to follow pre-operative instructionsMETHOD OF INSTRUCTION: Individual instructionFOLLOW-UP PLAN: Complete - No need for follow-upPatient instructed to call with any further issuesINSTRUCTIONAL AIDS USED: NASUPPLEMENTAL MATERIAL PROVIDED TO PATIENT: NoneREFERRAL (RECOMMENDATION): NoneElectronically Signed By: Haven Fam RN Normal [facility] Phosphoruson 02-14-2018 Phosphate mass conc 3.2 mg/dL Normal 2.5-4.5 [facility] Comment on above: Performed By: #### A BINTB ####[facility] [place], [place] [phone] Protimeon 02-14-2018 INR Coag RelTime (Bld) 1.1 {INR} Normal 0.9-1.3 [facility] Comment on above: Result Comment: Danni min K Antagonist (VKA) Therapeutic Range: INR 2 to 3 (Target INR of 2.5)Note: For patients treated with VKA drugs, such as warfarin, the [place] [employer] 2012 Guideline recommends [...] al. Chest 2012, 141:7S-47SNishtony RA, et al. [facility] 2017, 70: 252-289 Performed By: #### A BINTB ####[place] [address] [place], [place] [phone] PT Sec 11.3 sec Normal 9.7-13.0 [facility] Comment on above: Performed By: #### A BINTB ####[facility] [address] [place], [place] [phone] SURGICAL PATHOLOGYon 018 SURGICAL PATHOLOGY [facility] #: [id number] Physician: MONICA GARSIA MD FINAL DIAGNOSISSpleen, resection:- [...] chromogenicin-situ hybridization tests have been determined [facility] [place] ([facility]) patti manner consistent with CLIA requirements. One or more of these tests havenot been cleared or approved by the FDA. [facility] is regulated under CLIA asqualified to perform [...] the spleen is dark red andslightly granular. Punch Press Operator sections are submitted in two cassettes. WE/dcr 02/15/2018 Gross examination performed at [facility], [address] [place] [address]Patient ID #: [id number] of Report: 02/19/2018Date of Procedure: 02/14/2018Date of Receipt: 02/15/2018Submitted by: MONICA GARSIA MDLocation: [id number] interpretation performed at [facility], [address] [facility] [address]. Normal [facility] Comment on above: Performed By: #### C ONABO ####[facility] [place] [address] [phone] XR ABDOMEN 1V SUPINEon 02-14 XR ABDOMEN [...] HERNANDEZ MD on Feb 14 2018 7:16PM [id number]!! Invalid Interpretation Code [facility] NURSING PROGon 02-08-2018 Protein mass conc HNO ID: [id number] thor: Chichi (Rn) Erwin, TRUDYervice: General SurgeryAuthor Type: Registered NurseType: Nursing Progress NoteFiled: 02/08/2018 11:06 AMNote Text:PACC Nurse Progress NoteHistory AND Physical:PACC Visit Date: 53-7-35Djowzaue HANDP Date: N/AED visit Date: N/AOutside HANDP Scanned Date: N/ALabs Within Last 6 Months:CBC: Date 01-25-18BMP/CMP: Date 01-25-18TYPE AND SCREEN: Date 27-4-57Mugbta acceptable limits, results in EPICImaging Within Last 12 Months:Chest X-ray 8-87-59Kntvges scanned in EPIC 77-46-59Tsurbyl Testing:EKG in last 12 Months: Yes: Date: [...] after childbirthChart Check:Beulah Crowe 2017 11:04 AM [facility] RBC Antibody Interp (Lab Ord ered)on 01-25-2018 Antibody Interp (NOTE) [facility] Comment on above: Result Comment: Anti -E and anti-K, clinically significant alloantibodies againstcorresponding Rh and Marielle blood group system antigens, respectivelyare identified.Approximately 63% of donor units will be negative for the E and Kantigens. When possible please allow a minimum of 4 hours forpretransfusion and compatibility testing. Performed By: #### A BINTB ####[facility] [address] [place], [place] [phone] Physician Review Signed by Cynthia og MD ([id number]) [facility] Comment on above: Performed By: #### A BINTB ####[facility] [address] [place], [place] [phone] Type and SCR (30D)on 018 ABO/RH(D) Positive Normal [facility] Comment on above: Performed By: #### T SCR30 ####[place] [address] [place], [place] [phone] Antibody Identified Normal [facility] Comment on above: Result Comment: ANTI -K PRESENT.ANTI-E PRESENT. Performed By: #### T SCR30 ####[facility] [place], [place] [phone] HOSPon 01-18-2018 HOSP Patient:Brenda Mcclain LMRN: Height:5' [...] 12:25 PM SignedCall to patient to at [phone] to reschedule surgery date.Received VM. Contact number provided for return call.New date of surgery 02/14/2018Procedure: Laparoscopic PEH repairAndra Mckeon RN 02/02/2018 2:05 PM SignedReceived return call from patient.Accepted new date of surgery.Will edit [facility] paperwork to reflect new date of surgery.Progress Notes ([facility] [address]):Monica Garsia MD 01/21/2018 4:17 PM SignedAssessmentNEW FOREGUT PATIENTPATIENT NAME: Brenda McclainMRN: [id number] FOR CONSULT: Paraesophageal herniaREQUESTING PHYSICIAN: NAZIA TesfayeATE of SERVICE: 01/16/2018TIME of SERVICE: 6:08 PMPCP: Pam Villalobos [facility] Complaint: Abdominal pain, refluxHistory of present [...] record and USmail.Monica Garsia, MDPrevious Version Normal [facility] Vital Signs Date Time Vital Sign Value Performing Clinician Facility 08-18-2022 14:26-0400 Body height 161.3 cm Sanjay Adkins MD Work Phone: [facility] 08-18-2022 14:26-0400 Body temperature 97.11 [degF] Sanjay Adkins MD Work Phone: [facility] 08-18-2022 14:26-0400 Body weight 82.46 kg Sanjay Adkins MD Work Phone: [facility] 08-18-2022 14:26-0400 Diastolic blood pressure 77 mm[Hg] Sanjay Adkins MD Work Phone: [facility] 08-18-2022 14:26-0400 Heart rate 78 /min Sanjay Adkins MD Work Phone: [facility] 08-18-2022 14:26-0400 Respiratory rate 16 /min Sanjay Adkins MD Work Phone: [facility] 08-18-2022 14:26-0400 SaO2% (BldA) [Mass fraction] 100 % Sanjay Adkins MD Work Phone: [facility] 08-18-2022 14:26-0400 Systolic blood pressure 117 mm[Hg] Sanjay Adkins MD Work Phone: [facility] 08-19-2021 14:12-0400 Body height 161.3 cm Sanjay Adkins MD Work Phone: [facility] 08-19-2021 14:12-0400 Body temperature 98.6 [degF] Sanjay Adkins MD Work Phone: [facility] 08-19-2021 14:12-0400 Body weight 79.83 kg Sanjay Adkins MD Work Phone: [facility] 08-19-2021 14:12-0400 Diastolic blood pressure 83 mm[Hg] Sanjay Adkisn MD Work Phone: [facility] 08-19-2021 14:12-0400 Heart rate 91 /min Sanjay Adkins MD Work Phone: [facility] 08-19-2021 14:12-0400 Respiratory rate 16 /min Sanjay Adkins MD Work Phone: [facility] 08-19-2021 14:12-0400 SaO2% (BldA) [Mass fraction] 96 % Sanjay Adkins MD Work Phone: [facility] 08-19-2021 14:12-0400 Systolic blood pressure 133 mm[Hg] Sanjay Adkins MD Work Phone: [facility] 07-29-2021 08:45-0400 Blood Pressure Location [facility]an [facility] 07-29-2021 08:45-0400 Diastolic blood pressure 98 mm[Hg] [facility]an [facility] 07-29-2021 08:45-0400 Heart rate 66 /min [facility]an [facility] 07-29-2021 08:45-0400 Respiratory rate 23 /min [facility]an [facility] 07-29-2021 08:45-0400 SaO2% (BldA) [Mass fraction] 96 % Guna [facility] 07-29-2021 08:45-0400 Systolic blood pressure 146 mm[Hg] [facility] 07-29-2021 08:35-0400 Blood Pressure Location [facility] 07-29-2021 08:35-0400 Diastolic blood pressure 97 mm[Hg] [facility]an [facility] 07-29-2021 08:35-0400 Heart rate 71 /min [facility]an [facility] 07-29-2021 08:35-0400 Respiratory rate 14 /min [facility]an [facility] 07-29-2021 08:35-0400 SaO2% (BldA) [Mass fraction] 97 % [facility] 07-29-2021 08:35-0400 Systolic blood pressure 147 mm[Hg] [facility] 07-29-2021 08:30-0400 Blood Pressure Location [facility] 07-29-2021 08:30-0400 Diastolic blood pressure 105 mm[Hg] [facility] 07-29-2021 08:30-0400 Heart rate 67 /min [facility] 07-29-2021 08:30-0400 Respiratory rate 14 /min [facility]an [facility] 07-29-2021 08:30-0400 SaO2% (BldA) [Mass fraction] 96 % [facility]an [facility] 07-29-2021 08:30-0400 Systolic blood pressure 140 mm[Hg] [facility] 07-29-2021 08:20-0400 Body temperature 98.06 [degF] [facility] 07-29-2021 08:14-0400 Respiratory rate 18 /min [facility]an [facility] 07-29-2021 08:00-0400 Respiratory rate 1 /min [facility]an [facility] 07-29-2021 07:50-0400 Respiratory rate 6 /min [facility]an [facility] 07-29-2021 07:12-0400 Body temperature 97.7 [degF] [facility] 06-09-2021 10:29-0400 Diastolic blood pressure 91 mm[Hg] [facility] 06-09-2021 10:29-0400 Heart rate 76 /min [facility]an [facility] 06-09-2021 10:29-0400 Systolic blood pressure 148 mm[Hg] [facility]an [facility] Encounters Encounter Date Encounter Type Care Provider Facility Start: 01-16-2023 End: 01-16-2023 ambulatory PAM VILLALOBOS Not Available Start: 2023 End: 2023 Emergency department patient visit [place] [facility] Start: 08-24-2022 End: 08-25-2022 ambulatory Kamron Villalobos Facility[facility] Start: 08-24-2022 End: 08-24-2022 Patient encounter procedure Kamron Villalobos [facility] Start: 08-18-2022 End: 08-18-2022 ambulatory PAM VILLALOBOS Facility:[facility] Start: 08-18-2022 End: 08-18-2022 ambulatory Sanjay Adkins MD Work Phone: Hematology/Oncology Comment on above: 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); History of iron deficiency Start: 08-18-2022 End: 08-18-2022 Patient encounter procedure Sanjay Adkins MD Work Phone: [facility] Start: 05-18-2022 End: 05-19-2022 ambulatory SELF REFERRAL Facility[facility] Start: 05-18-2022 End: 05-18-2022 Patient encounter procedure SELF REFERRAL [facility] Start: 12-17-2021 End: 12-17-2021 Patient encounter procedure Pam Villalobos [facility] Start: 08-26-2021 Telephone encounter Andra Anders [...] encounter procedure Sanjay Adkins MD Work Phone: [place] Start: 08-18-2021 End: 08-18-2021 Patient encounter procedure JOHANNE LINDSAY [facility] Start: 07-29-2021 End: 07-29-2021 Patient encounter procedure Guan SAL[facility] Start: 06-09-2021 End: 06-09-2021 Patient encounter procedure Guan SALAM [facility] Start: 02-15-2021 End: 05-18-2021 Patient encounter procedure Pam Villalobos [facility] Start: 02-14-2018 End: 02-17-2018 Evaluation and management of inpatient MONICA RODRIGUEZ) [facility] Procedures Date Procedure Procedure Detail Performing [...] Comment on above: Performed By: #### [id number] ####[id number] [place], [place] [phone] Colonoscopy Pam Villalobos Elbow region structu re (body structure) Pam Villalobos Esophageal hiatus hernia repair Pam Villalobos Esophagogastroduodenoscopy P eter Wilfredo Hemorrhoids (disorder) Pam Villalobos Hysterectomy Pam Villalobos knee scope Pam Villalobos Operation on spleen Pam [email or web address] a Plan of Treatment Date Care Activity Detail Author Start: 08-18-2025 DIABETES SCREEN DIABETES SCREEN [facility] Start: 08-19-2024 DIABETES SCREEN DIABETES SCREEN [facility] Start: 08-19-2023 BP CONTROLLED (<130/80) BP CONTROLLE D (<130/80) [facility] Start: 04-16-2023 MENINGOCOCCAL CONJUG ATE (3 - Risk 2-dose series) MENINGOCOCCAL CONJUGATE (3 - Risk 2-dose series) [facility] Start: 08-18-2022 End: 10-18-2022 MONOCLONAL PROTEIN, SERUM (BLOOD) [facility] Work Phone: Comment on above: Expected: 08/18/2022 , Expires: 10/18/2022 Start: 08-18-2022 End: 10-18-2022 PROT ELECT SERUM WITH DARÍO AND INTERP [facility] Work Phone: Comment on above: Expected: 08/18/2022 , Expires: 10/18/2022 Start: 02-20-2022 ADVANCE DIRECTIVE DISCUSSION ADVANCE DIRECTIVE DISCUSSION [facility] Start: 02-20-2022 DEPRESSION ASSESSMENT DEPRESSION ASS ESSMENT [facility] Start: 10-21-2021 Influenza vaccination INFLUENZA (#1) [facility] Start: 08-19-2021 End: 10-19-2021 Ferritin [Mass/volume] in Serum or Plasma [facility] Work Phone: Comment on above: Expected: 08/19/2021 , Expires: 10/19/2021 Start: 08-19-2021 End: 10-19-2021 Iron and Iron binding capacity panel - Serum or Plasma [facility] Work Phone: Comment on above: Expected: 08/19/2021 , Expires: 10/19/2021 Start: 03-30-2021 COVID-19 VACCINE (4 - Booster for Pfizer series) COVID-19 VACCINE (4 - Booster for Pfizer series) [facility] Start: 02-20-2021 ADVANCE DIRECTIVE DISCUSSION ADVANCE DIRECTIVE DISCUSSION [facility] Start: 08-15-2020 Adult depression screening assessment DEPRESSION SCREENING [facility] Start: 04-16-2019 PNEUMOCOCCAL: 65+ (3 - PCV) PNEUMOCOCCAL: 65+ (3 - PCV) [facility] Start: 07-31-2013 SHINGRIX VACCINE (1 of 2) SHINGRIX VACCINE (1 of 2) [facility] Start: 01-07-2013 BONE DENSITY BONE DENSITY [facility] Start: 01-07-1993 COLOGUARD (FIT-DNA) COLOGUARD (FIT-D NA) [facility] Start: 01-07-1993 Colonoscopy COLONOSCOPY [facility] Start: 01-07-1993 COLORECTAL CANCER SCREENING COLORECTAL CANCER SCREENING [facility] Start: 01-07-[address] COLONOGRAPHY [facility] Start: 01-07-1993 FECAL OCCULT BLOOD FECAL OCCULT BLOO D [facility] Start: 01-07-1993 LIPID SCREEN LIPID SCREEN [facility] Start: 01-07-1993 SIGMOIDOSCOPY SIGMOIDOSCOPY [facility] Start: 1988 Mammography MAMMOGRAM [facility] Start: 01-07-1967 Urine microalbumin profile DTAP,TDAP,TD (1 - Tdap) [facility] Start: 01-07-1966 ANNUAL PCP TEAM RESOURCE FORESTER JAS DISEASE VISIT ANNUAL PCP TEAM CHRONIC DISEASE VISIT [facility] Start: 01-07-1966 BP CONTROLLED (<130/80) BP CONTROLLE D (<130/80) [facility] Start: 01-07-1966 HEPATITIS C SCREENING HEPATITIS C SC NELDAJESSICA [facility] Start: 01-07-1958 MENINGOCOCCAL B: Consider based on risk (1 of 4 - Increased Risk Bexsero 2-dose series) MENINGOCOCCAL B: Consider based on risk (1 of 4 - Increased Risk Bexsero 2-dose series) [facility] Immunizations Immunization Date Immunization Notes Care Provider Fa cility 04-16-2020 COVID-19 vaccine, ag e 12+ yr (PFIZER-BIONTECH - PURPLE TOP) Sanjay Adkins MD Work Phone: [facility] 03-27-2020 COVID-19 vaccine, ag e 12+ yr (PFIZER-BIONTECH - PURPLE TOP) Sanjay Adkins MD Work Phone: [facility] 04-16-2018 meningococcal polysaccharide (groups A, C, Y and W-135) diphtheria toxoid conjugate vaccine (MCV4P) Sanjay Adkins MD Work Phone: [facility] 04-16-2018 pneumococcal polysaccharide vaccine, 23 valent Sanjay Adkins MD Work Phone: [facility] 02-17-2018 haemophilus influenz ae type b vaccine, PRP-T conjugate Sanjay Adkins MD Work Phone: [facility] 02-17-2018 influenza, high dose seasonal, preservative-free Sanjay Adkins MD Work Phone: [facility] 02-17-2018 meningococcal polysaccharide (groups A, C, Y and W-135) diphtheria toxoid conjugate vaccine (MCV4P) Sanjay Adkins MD Work Phone: [facility] 02-17-2018 pneumococcal polysaccharide vaccine, 23 valent Sanjay Adkins MD Work Phone: [facility] 06-05-2013 zoster vaccine, live Sanjay gibson MD Work Phone: [facility] 02-18-2009 novel influenza-H1N1 -09, preservative-free, injectable Sanjay Adkins MD Work Phone: [facility] Payers Date Payer Category Payer Unknown VANDANA [employer] DICARE SUPPLEMENT [id number] 2018-Present [phone] [address] [place] [address] Indemnity [id number] 2018 Unknown VANDANA ROS[employer] DICARE SUPPLEMENT [id number] 2018-Present [phone] [address] [place] [id number] Indemnity [id number] 2018 Unknown [id number] 2012 Medicare MEDICARE MEDICAR E A AND B [id number] 2012-Present [phone] [place] [address] Medicare [id number] 2012 Medicare MEDICARE MEDICAR E A AND B [id number] 2012-Present [phone] [place] [address] Medicare [id number] 2012 Medicare [id number] 1948 Unknown [id number] 1948 Unknown [id number] 1948 Unknown [id number] 1948 Unknown [id number] Social History Date Type Detail Facility Start: 01-07-2020 End: 06-09-2021 Tobacco smoking status Never smoked tobacco (finding) [facility] Sex Assigned At Female [facility] Start: 08-19-2021 End: 08-18-2022 Alcohol intake Current drinker of alcohol (finding) [facility] Start: 01-25-2018 History SDOH Alcohol Comment one drink at the holidays at times [facility] Start: 1950 Sex Assigned At Female [facility] Start: 08-09-2021 End: 08-19-2021 Exposure to SARS-CoV-2 (event) Not sure [facility] Start: 08-18-2022 Tobacco use and exposure Smokeless tobacco non-user [facility] NEGATED: Highlighted rowStart: NINF History of tobacco use Passive smoker [facility] Medical Equipment Procedure Code Equipment Code Equipment Origin al Text Equipment Identifier Dates {[id number] FDA Start: 09-02-2019 {[id number] FDA Start: 09-30-2019 {[id number]{ [id number] FDA Start: 10-29-2019 [employer] Synth etic 10x7cm Surgical Reinforcement Hernia Repair - [id number] Start: 02-14-2018 Clinical Notes 07-29-2021 to 08-18-2022 Sanjay Adkins MD - 08/18/2022 7:57 AM EDTTelephone Encounter - Andra Anders RN - 08/26/2021 3:32 PM EDTTelephone Encounter - Andra Anders RN - 08/26/2021 3:30 PM EDT Note Date & Type Note Facility 08-18-2022 Note HNO ID: [id number] Author: Sanjay Adkins MD Service: ? Author [...] 1. Iron def (more content not included)... [facility] 08-18-2022 History of Presen t illness [...] ulcers. The patient subsequently underwent surgery at [facility] (Dr. Garsia) on 02/14/2018. Her surgery [...] Sanjay Adkins MD documented in this encounter [facility] 08-26-2021 Miscellaneous Notes Call placed to pt. [...] scheduled. ALFONSO Hutton documented in this encounter [facility] 08-20-2021 Miscellaneous Notes Informed pt of Dr [...] scheduled. ALFONSO Hutton documented in this encounter [facility] 08-19-2021 Nurse Note Patient states that she is very tired. Deisy Andujar MA documented in this encounter [facility] 08-19-2021 History of Presen t illness Narrative [...] ulcers. The patient subsequently underwent surgery at [facility] (Dr. Garsia) on 02/14/2018. Her surgery [...] CC: Dr. Giordano documented in this encounter [facility] 07-29-2021 Evaluation + Plan note Extrac rashawn from: Title:ANES POSTOP MAC/GEN NOTE Author:Fernando Chaparro JR Date:07/29/21 Plan Transfer/ Discharge: Patient can be discharged from PACU when criteria met. Condition good. Extracted from: Title:ANES PREOP ENDO NOTE Author:Miladys Huizar JR, DO Date:07/29/21 Plan [place] [employer] (ASA) physical status classification: Class II. Anesthetic Preoperative Plan Anesthesia: Monitored anesthesia care and general anesthesia if required.. Anesthetic plan, risks, benefits, and alternatives discussed with the patient and/or family. Pt. and/or family present and agree to proceed as planned.. Discussed the importance of abstaining from tobacco products, and offered counseling if desired.. [facility] Hospital Discharge instructions Patient Education 07/29/2021 [...] including vitamins, herbs, eye drops, creams, and fpuk-gdq-otptizn medicines. Any problems you or family members [...] home. Follow these instructions at home: Take sqkj-fit-yabsrih and prescription medicines only as told by [...] 03/30/2006 Document Revised: 01/19/2018 Document Reviewed: 12/12/2017 [facility] Patient Education 2020 [employer]. 07/29/2021 08:24:23 Endoscopy, Care After Procedure [facility] Endoscopy Care After Procedure Please read the instructions outlined below and refer to this sheet in the next few weeks. These discharge instructions provide you with general information on [facility] Your doctor may also give you [...] blood. Document Released: 09/20/2004 Document Re-Released: 07/31/2006 [facility] [employer]. Follow Up Care 06/09/2021 11:21:23 With:Roge OWEN Address: [address] [place] [address] [place] [phone] Business (1) When:1 to 2 weeks Comments:Call for any problems. [facility] Future Appointments Appointment Date:06/09/2021 10:00:00 AM Scheduled Provider:Roge OWEN MD Location[place] App[facility]ment Type:[facility] Call [facility] Future Appointments Appointment Date:07/29/2021 08:00:00 AM Scheduled Provider: Location:[facility] Surgical Services Appointment Type:Surgery [facility] Evaluation note* Diagnosis Iron deficiency anemia due to chronic blood loss- Primary Iron deficiency anemia secondary to blood loss (chronic) Paraesophageal hernia Diaphragmatic hernia without mention of obstruction or gangrene Monoclonal gammopathy of undetermined significance Monoclonal paraproteinemia [facility] [place] [facility] Diagnosis Monoclonal gammopathy of undetermined significance- Primary Monoclonal paraproteinemia History of iron deficiency Personal history of diseases of blood and blood-forming organs documented in this encounter [facility] course Narrative No data available for this section [facility] No data available for this section [facility] No data available for this section [facility] Summary Purpose Family History No Family History Records FoundNo Family History Records FoundNo Family History Records FoundNo Family History Records FoundNo Family History Records Found Advance Directives No Advanced Directives Records FoundDocuments on File Type Date Recorded 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)Hospital Course:The patient was admitted to the hospital with the above history. T (more content not included)... Additional Source Comments INFORMATION SOURCE (unrecogn ized section and content) DATE CREATED AUTHOR 02/19/2018 [facility] DATE CREATED AUTHOR AUTHOR'S ORGANIZ ATION 04/14/2021 [facility] dical Specialist DATE CREATED AUTHOR AUTHOR'S ORGANIZ ATION 01/09/2023 [facility] DATE CREATED AUTHOR AUTHOR'S ORGANIZ ATION 01/17/2023 [facility] dical Specialists EPIC DATE CREATED AUTHOR AUTHOR'S ORGANIZ ATION 03/07/2023 [facility] Care Team (unrecognized sect ion and content) Client Professional Relationship Specialty Start Date End Date Pam Villalobos PCP - General 12/07/07 Andra Mckeon (Rn), RN [id number] [place] [address] 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 General Surgery 01/24/18 Client Professional Relationship Specialty Start Date End Date Pam Villalobos PCP - General 12/07/07 Andra Mckeon (Rn), [place] [phone] [place] [address] 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 General Surgery 01/24/18 Client Professional Relationship Specialty Start Date End Date Pam Villalobos PCP - General 12/07/07 Andra Mckeon (Rn), RN [phone] [place] [address] 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 General Surgery 01/24/18 Source Comments (unrecognize d section and content) In the event this informatio n is protected by the Federal Confidentiality of Alcohol and Drug Abuse Patient Records regulations: The Federal rules restrict any use of the information to criminally investigate or prosecute any alcohol or drug abuse patient.[facility] the event this information is protected by [...] or prosecute any alcohol or drug abuse patient.[facility] the event this information is protected by the Federal Confidentiality of Alcohol and Drug Abuse Patient Records regulations: The Federal rules restrict any use of the information to criminally investigate or prosecute any alcohol or drug abuse patient.[facility] Reason for Visit (unrecogniz ed section and [...] BE BASED ON THE PRIMARY CLINICAL RECORDS. [facility] [employer] [facility]. provides no warranty or guarantee of the accuracy or completeness of information in this document.
--- NOTE | 2023-03-16 08:52 | VEIN_ITS ---
[address] [address] Patient Name: KEELEY CADE MRN: [id number] date: 1950 Sex: F Assigned Patient Location: Current Patient Location: Accession/Order Number: [id number] Exam Date: 03/16/2023 08:55 Report Date: 03/16/2023 09:43 At the request of: DI LIU Procedure: VC INJ Sclerosing SOLMULT Vein EXAMINATION: VC INJ Sclerosing SOLMULT Vein HISTORY: Pain due to varicose veins of bilateral legs I83.813 COMPARISON: No relevant comparison available. TECHNIQUE: The risks and benefits of the procedure were explained at length to the patient and informed written consent was obtained. Nathen Lawton was present and assisted. The procedure was performed under sterile technique. The patient's leg was wrapped with Coban and postprocedural verbal and written instructions provided. SCLEROSANT: 4 cc, 0.5% polidocanol VEIN(S) INJECTED: 26 veins in the right leg VISUALIZATION: Ultrasound was not used to visualize the sclerosant ANESTHESIA: Supercooled air COMPLICATIONS: None VEIN/VC INJ Sclerosing SOLMULT Vein IMPRESSION: Technically successful sclerotherapy as described Electronically authenticated by: DI LIU Date: 03/16/2023 09:43
== END 2023-03-16 08:48 | disposition home or self-care (01) ==
LOC: VC 08:48
PROVIDERS: PCP Radiology Diagnostic Radiology; Visit Provider Radiology Diagnostic Radiology
DX: I83.813 Varicose veins of bilateral lower extremities with pain (principal)
CPT/HCPCS: 36471

== ENCOUNTER 2023-04-06 09:48 | Outpatient (OUT) | payer MEDICARE, BC, SELFPAY ==
--- NOTE | 2023-04-06 09:49 | VEIN_ITS ---
[address] [address] Patient Name: KEELEY CADE MRN: [id number] date: 1950 Sex: F Assigned Patient Location: Current Patient Location: Accession/Order Number: [id number] Exam Date: 04/06/2023 09:49 Report Date: 04/06/2023 13:20 At the request of: DI LIU Procedure: VC INJ Sclerosing SOLMULT Vein EXAMINATION: VC INJ Sclerosing SOLMULT Vein HISTORY: I83.813 Bilateral painful varicose veins The risks and benefits of the procedure were explained at length to the patient and informed written consent was obtained. The procedure was performed under sterile technique. The patient's leg was wrapped with Coban and postprocedural verbal and written instructions provided. Nathen Lawton RN was present and assisted. SCLEROSANT: 2mL 0.5% Polidocanol. VEIN(S) INJECTED: 28 veins in the left leg. VISUALIZATION: Ultrasound was not used to visualize the sclerosant. ANESTHESIA: Supercooled air. COMPLICATIONS: None. Electronically authenticated by: NINI SEVERINO Date: 04/06/2023 13:20
--- OUTSIDE RECORDS SUMMARY | 2023-04-06 10:02 | XMS_ITS | CCD ---
Author Name Unknown Address [address] [place] [address] Organization [facility] Care Team Providers Care Line Fisher Name Role Phone MONICA GARSIA () Unavailable Unavailable MONICA GARSIA) Unavailable Unavailable Pam Villalobos Primary Care Physician [phone] Yohana Rodarte Unavailable Unavailable Blanca Stratton Unavailable [...] Propensity to adverse reactions (disorder) 8 Rash [facility] Other [place] Repository (6 sources) Cefuroxime; Translations: [CEFUROXIME AXETIL] Drug Allergy 8 GI Upset [facility] Repository (6 sources) Clindamycin; Translations: [CLINDAMYCIN HCL] Drug Allergy 8 Intolerance [facility] Repository (8 sources) Adhesive Tape; Translations: [Adhesive tape] Allergy to substance [facility] Medications Current Medications Medication Drug Class(es) Dates Sig (Normalized) Sig (Original) acetaminophen 500 mg oral tablet (7 sources) Start: 11-16-2017 take 500 mg by mouth every six hours as needed for pain Tylenol 500 mg, Oral, q6hr, PRN as needed for pain, Refills(s) 0 Start Date: 11/16/17 Status: Ordered [id number] 200 actuat albuterol 0.09 mg/actuat metered dose [...] BIDPC, # 60 tab(s), Refills(s) 0, Pharmacy: [facility], 161.5, cm, 10/09/19 6:34:00 EDT, Height/Length Dosing, 80.1, kg, 10/11/19 12:14:00 EDT, Weight Dosing Start Date: 10/29/19 Status: Ordered Start: 10-29-2019 Ecotrin 325 mg Tab-EC 325 mg = 1 tab(s), Oral, BIDPC, # 60 tab(s), Refills(s) 0, Pharmacy: [facility], 161.5, cm, 10/09/19 6:34:00 EDT, Height/Length [...] 11/17/17 Status: Ordered take 1 capsule by [facility] every six hours as needed diphenhydrAMINE (BENADRYL) [...] constipation, # 40 cap(s), Refills(s) 0, Pharmacy: [facility], 161.5, cm, 10/09/19 6:34:00 EDT, Height/Length [...] day(s), # 90 cap(s), Refills(s) 1, Pharmacy: [facility], 161, cm, 07/29/21 7:13:00 EDT, Height/Length Dosing, 84, kg, 07/29/21 7:13:00 EDT, Weight Dosing Start Date: 09/23/21 Stop Date: 03/22/22 Status: Ordered Start: 06-09-2021 take 1 capsule by [facility] once daily omeprazole 40 mg Cap-DR 40 mg = 1 cap(s), Oral, Daily, # 30 cap(s), Refills(s) 2, Pharmacy: [facility], 161, cm, 06/09/21 10:32:00 EDT, Height/Length Dosing, 84, kg, 06/09/21 10:32:00 EDT, Weight Dosing Start Date: 06/09/21 Status: Ordered Comment on above: Take 40 mg by mouth once daily. omeprazole 40 mg Cap-DR (2 sources) Start: take 1 capsule by mouth once daily omeprazole 40 mg Cap-DR 40 mg = 1 cap(s), Oral, Daily, # 30 cap(s), Refills(s) 2, Pharmacy: [facility], 161, cm, 06/09/21 10:32:00 EDT, Height/Length Dosing, 84, kg, 06/09/21 10:32:00 EDT, Weight Dosing Start Date: 06/09/21 Status: Ordered ondansetron 4 mg oral tablet (7 sources) Serotonin-3 Receptor Antagonist Start: take 4 mg by mouth twice daily as needed for nausea Zofran 4 mg, Oral, BID, PRN as needed for nausea/vomiting, Refills(s) 0 Start Date: 12/09/19 Status: Ordered polyethylene glycol 3350 04986 mg powder for oral solution (6 sources) [...] pain Dx: M17.12, Z96.642 Duration: 7 days, [facility], 161.5, cm, 10/09/19 6:34:00 EDT, Height/Length Dosing, 80.1, kg, 10/11/19 12... Start Date: 10/29/19 Status: Ordered Start: 10-29-2019 Percocet 325 m g-5 mg Tab See Instructions, as needed for pain, 40 tab(s), Refill(s) 0, 1-2 orally every 4-6hrs as needed for pain Dx: M17.12, Z96.642 Duration: 7 days, [facility], 161.5, cm, 10/09/19 6:34:00 EDT, [...] Candido 03-06-2023 CNPN Telephone (HEMASA) LESTERBRENDA VALLE ([id number]) 1950 F Date Time Provider Department 03/06/23 [...] Status:Closed by SANJAY ADKINS on 03/06/23 Normal [facility] Auto Diffon 2023 Basophils/100 WBC (Bld) 0.4 % Normal 0.0-2.0 [facility] Comment on above: Order Comment: Order Added by Discern Expert. Performed By: #### 1 [id number], 2528425, 1183275, 9833792 #### [facility] [address] [place] [address] Basophils/Leukocy maury Auto (Bld) [Pure # fraction] 0.0 E9/L Normal 0.0-0.2 [facility] Comment on above: Order Comment: Order Added by Discern Expert. Performed By: #### 1 2820517, 9923741, 9228073, 5452826 #### [facility] [address] [place] [address] Eosinophils/100 WBC (Bld) 5.9 % Normal 0.0-8.0 [facility] Comment on above: Order Comment: Order Added by Discern Expert. Performed By: #### 1 1861800, 0529591, 1567977, 3219420 #### [facility] [address] [place] [address] Eosinophils/Leuko cytes Auto (Bld) [Pure # fraction] 0.4 E9/L Normal 0.0-0.5 [facility] Comment on above: Order Comment: Order Added by Discern Expert. Performed By: #### 1 6813423, 4475860, 3082981, 1517705 #### [facility] [address] [place] [address] Lymphocytes/100 WBC (Bld) 30.4 % Normal 14.0-50.0 [facility] Comment on above: Order Comment: Order Added by Discern Expert. Performed By: #### 1 6305286, 3060077, 8913224, 0109764 #### [facility] [address] [place] [address] Lymphocytes/Leuko cytes Auto (Bld) [Pure # fraction] 2.0 E9/L Normal 1.0-4.0 [facility] Comment on above: Order Comment: Order Added by Discern Expert. Performed By: #### 1 2880452, 8399773, 8318193, 6855337 #### [facility] [address] [place] [address] Monocytes/100 WBC (Bld) 11.1 % Normal 4.0-14.0 [facility] Comment on above: Order Comment: Order Added by Discern Expert. Performed By: #### 1 2238736, 6264815, 4870188, 2785548 #### [facility] [address] [place] [address] Monocytes/Leukocy maury Auto (Bld) [Pure # fraction] 0.7 E9/L Normal 0.2-1.0 [facility] Comment on above: Order Comment: Order Added by Discern Expert. Performed By: #### 1 0050923, 6069932, 1322970, 4135423 #### [facility] [address] [place] [address] Neutrophils/100 WBC (Bld) 52.2 % Normal 36.0-75.0 [facility] Comment on above: Order Comment: Order Added by Discern Expert. Performed By: #### 1 4503750, 9536144, 6126266, 4698001 #### [facility] [address] [place] [address] Neutrophils/Leuko cytes Auto (Bld) [Pure # fraction] 3.5 E9/L Normal 2.0-7.5 [facility] Comment on above: Order Comment: Order Added by Discern Expert. Performed By: #### 1 5879930, 2782124, 1243998, 1775326 #### [facility] [address] [place] [address] 28688 CBC w/ Auto Diffon Erythrocyte distribution width (RBC) [Ratio] 13.0 % Normal 10.9-14.2 [facility] Comment on above: Performed By: #### 1 9392343, 6052890, 3463652, 4051023 #### [facility] [address] [place] [address]89[address] Hematocrit (Bld) [Volume fraction] 42.3 % Normal 34.0-46.0 [facility] Comment on above: Performed By: #### 1 4110104, 4624356, 3640822, 1728616 #### [facility] [address] [place] [address]3891 Hemoglobin (Bld) [Mass/Vol] 14.3 g/dL Normal 12.0-16.0 [facility] Comment on above: Performed By: #### 1 7776550, 3283907, 5417124, 9202218 #### [facility] [address] [place] [address] MCH (RBC) [Entitic mass] 31.7 pg Normal 27.0-34.0 [facility] Comment on above: Performed By: #### 1 7526373, 1881648, 6966218, 8989253 #### [facility] [address] [place] [address] MCHC (RBC) [Mass/Vol] 33.8 g/dL Normal 31.4-36.0 [facility] Comment on above: Performed By: #### 1 7220070, 7152922, 0658981, 6860731 #### [facility] [address] [place] [address]5782 MCV (RBC) [Entitic vol] 93.7 fL Normal 80.0-100.0 [facility] Comment on above: Performed By: #### 1 7065972, 6779299, 4727883, 0348584 #### [facility] [address] [place] [address] 01891 Platelet mean volume (Bld) [Entitic vol] 8.2 fL Normal 6.4-10.8 [facility] Comment on above: Performed By: #### 1 1421579, 5980527, 7457377, 8367231 #### [facility] [address] [place] [address]60 Platelets (Bld) [#/Vol] 407.0 E9/L Normal 150.0-500.0 [facility] Comment on above: Performed By: #### 1 8398000, 4822833, 4927717, 1535291 #### [facility] [address] [place] [address] 45999 RBC (Bld) [#/Vol] 4.5 E12/L Normal 4.3-5.9 [facility] Comment on above: Performed By: #### 1 0478396, 8512269, 9742340, 3378142 #### [facility] [address] [place] [address] WBC corrected for nucl RBC Auto (Bld) [#/Vol] 6.6 E9/L Normal 4.0-11.0 [facility] Comment on above: Performed By: #### 1 2673772, 6339908, 4923115, 0362295 #### [facility] [address] [place] [address] CMPon 2023 Albumin [Mass/Vol] 3.7 g/dL Normal 3.3-5.0 [facility] Comment on above: Performed By: #### 1 0229261, 9366530, 0889707, 8528822 #### [facility] [address] [place] [address] Albumin/Globulin (S) [Mass conc ratio] 0.9 Low 1.1-2.2 [facility] Comment on above: Performed By: #### 1 7934047, 5873075, 9810662, 6578069 #### [facility] [address] [place] [address] ALP [Catalytic activity/Vol] 108 Int._Unit/L High 21-98 [facility] Comment on above: Performed By: #### 1 4261576, 2007297, 1302041, 6661283 #### [facility] [address] [place] [address] ALT No additional P-5'-P [Catalytic activity/Vol] 18 Int._Unit/L Normal 6-46 [facility] Comment on above: Performed By: #### 1 2778256, 9111134, 0777403, 9830722 #### [facility] [address] [place] [address] AST [Catalytic activity/Vol] 20 Int._Unit/L Normal 5-43 [facility] Comment on above: Performed By: #### 1 6268404, 7806235, 7505445, 8465866 #### [facility] [address] [place] [address] Bilirubin [Mass/Vol] 0.7 mg/dL Normal 0.0-1.1 [facility] Comment on above: Performed By: #### 1 8589483, 4227407, 1019949, 2411394 #### [facility] [address] [place] [address] Creatinine [Mass/Vol] 1.0 mg/dL Normal 0.5-1.3 [facility] Comment on above: Performed By: #### 1 7821842, 4427664, 0192397, 4515859 #### [facility] [address] [place] [address] Globulin (S) [Mass/Vol] 4.1 g/dL High 1.4-4.0 [facility] Comment on above: Performed By: #### 1 6443439, 1086729, 0874057, 8298496 #### [facility] [address] [place] [address] Protein [Mass/Vol] 7.8 g/dL Normal 6.0-7.8 [facility] Comment on above: Performed By: #### 1 0409388, 5480527, 5846259, 4231249 #### [facility] [address] [place] [address] Urea nitrogen [Mass/Vol] 14 mg/dL Normal 5-21 [facility] Comment on above: Performed By: #### 1 3628701, 1009059, 9728203, 1132183 #### [facility] [address] [place] [address] Urea nitrogen/Creatini ne [Mass ratio] 14 No Units Normal 10-20 [facility] Comment on above: Performed By: #### 1 0742564, 5117283, 2136168, 3405081 #### [facility] [address] [place] [address] Anion gap [Moles/Vol] 12 mmol/L Normal 6-16 [facility] Comment on above: Performed By: #### 1 7367176, 2673244, 1832750, 8235777 #### [facility] [address] [place] [address] Calcium [Mass/Vol] 9.7 mg/dL Normal 8.9-11.1 [facility] Comment on above: Performed By: #### 1 1291763, 3896469, 8581348, 4021329 #### [facility] [address] [place] [address] Chloride [Moles/Vol] 106 mmol/L Normal 101-111 [facility] Comment on above: Performed By: #### 1 9831518, 8248293, 7988350, 4199856 #### [facility] [address] [place] [address] CO2 [Moles/Vol] 27 mmol/L Normal 21-31 [facility] Comment on above: Performed By: #### 1 6929953, 8548408, 8923955, 0754512 #### [facility] [address] [place] [address] Glucose [Mass/Vol] 95 mg/dL Normal 55-199 [facility] Comment on above: Result Comment: If t his glucose result represents a fasting glucose, interpretation should refer to the following reference range: 55-99 mg/dL Performed By: #### 1 6268969, 0428523, 7348351, 3498716 #### [facility] [address] [place] [address] Potassium [Moles/Vol] 3.9 mmol/L Normal 3.5-5.3 [facility] Comment on above: Performed By: #### 1 3970418, 3438736, 3110588, 1550878 #### [facility] [address] [place] [address] Sodium [Moles/Vol] 141 mmol/L Normal 135-145 [facility] Comment on above: Performed By: #### 1 5664262, 3150780, 4428062, 6576142 #### [facility] [address] [place] [address] Consent for Treatmenton 12-21 Consent for Treatment [id number] Normal [facility] Discharge Instructionson Discharge Instructions [id number] Normal [facility] ED Clinical Summaryon 2022 ED Clinical Summary [place] [id number] ED Clinical Summary Person Information Name: BRENDA MCCLAIN [facility] Age: 73 Years : 1950 Sex: Female Language: Maori PCP: Pam Villalobos MD Marital Status: Phone: [phone] Visit Id: Visit Reason: Rash; Headache - [...] 2023 14:40:42 2023 14:40:42 2023 14:40:42 ADDRESS: [address] [place] [id number] PHYS DOC NOTES: MEDICAL INFORMATION: Prescriptions Given: New Medications [facility], [address] [place], [place] [id number], [phone] ketoconazole topical (ketoconazole Top 2% Crm) 1 [...] Follow up: With: Address: When: Pam [place] [address] Business (1) In 3 days [...] ED visit. (more content not included)... Normal [facility] ED Note-Physicianon 01-09-20 ED Note-Physician Basic Information [...] gm, Refill(s) 0, apply to fungal infection, [facility], 157.5, cm, 01/08/23 12:28:00 EST, Height/Length [...] IV diphenhydrAMINE (more content not included)... Normal [facility] Comment on above: Result Comment: Elec tronically [...] conditioner or fan, if available. ? Apply fkjs-zoy-cufetrw and prescription medicines only as told by [...] well after activity or exercise. Use a physics department chair on a cool setting to [...] your skin and with medicines. ? Apply uakc-isp-gceqolp and prescription medicines only as told by your health care provider. ? Keep all follow-up visits as told by your health care provider. This is important. This information is not intended to replace advice given to you by your health care provider. Make sure you discuss any questions you have with your health care provider. Document Revised: 11/22/2021 Document Reviewed: 11/22/2021 [employer] Patient Education ? 2022 [employer] Neurology Migraine Headache A migraine headache [...] inflammation c (more content not included)... Normal [facility] ED Patient Summaryon 023 ED Patient Summary [address] [address] Patient Discharge Instructions Person Information Name: BRENDA MCCLAIN Age: 73 Years Arrival Date: 2023 12:14:08 Discharge Diagnosis: Candidal intertrigo; Classic migraine; Id reaction Primary Care Physician: Pam Villalobos MD Provider Information Primary Provider: Gray Moon DO Advanced Manager It Training:Nya The exam and treatment you received in the Emergency Department were for an urgent problem and are not intended as complete care. It is important that you follow up with a doctor, nurse practitioner, or physician?s shipping assistant for ongoing care. If your symptoms [...] Follow-up Instructions: With: Address: When: Pam Villalobos [address] [place] [address] Business (1) In 3 days 01/11/2023 [...] opioids can be used to help relieve etxnnvcp-qp-psoluc pain and are often prescribed following a [...] a pl (more content not included)... Normal [facility] eGFRon 2023 GFR/1.73 sq M.predicted among non-blacks MDRD (S/P/Bld) [Vol rate/Area] 59 mL/min/1.73 m2 Normal >=59 [facility] Comment on above: Order Comment: Order added by Discern Expert. Result Comment: Crystalizer Tender jas kidney disease could be indicated at eGFR's of less than 60 mL/min/1.73m2. Kidney failure is indicated at less than 15 mL/min/1.73m2. Performed By: #### 1 3964022, 7868438, 3438046, 0791611 #### [facility] [address] [place] [address] BUNon 08-24-2022 Urea nitrogen [Mass/Vol] 23 mg/dL High 5- [facility] Comment on above: Performed By: #### 1 3319241, 6510467, 1974704, 5055050 #### [facility] [address] [place] [address] CHEMISTRYOrdered By: SYSTEM SYSTEM on 08-24-2022 Albumin [...] Invalid Interpretation Code 0.1 - 0.9 mg/dL [facility] Remisol Creatinine [Mass/Vol] 1.0 mg/dL Normal 0.5 - 1.3 mg/dL [facility] Remisol GFR/1.73 sq M.predicted among non-blacks MDRD (S/P/Bld) [Vol rate/Area] 59 mL/min/1.73 m2 Normal >=59mL/min/ 1.73 m2 [facility] Chem S Globulin (S) [Mass/Vol] 3.6 g/dL Normal 1.4 - 4.0 gm/dL [facility] Remisol Protein [Mass/Vol] 7.6 g/dL Normal 6.0 - 7.8 gm/dL [facility] Remisol Urea nitrogen [Mass/Vol] 23 mg/dL High 5 - 21 mg/dL [facility] Remisol Consent for Treatmenton Consent for Treatment [id number]:[id number] Normal [facility] Creatinineon 08-24-2022 Creatinine [Mass/Vol] 1.0 mg/dL Normal 0.5-1.3 [facility] Comment on above: Performed By: #### 1 5997263, 3226675, 2552932, 4976769 #### [facility] [address] [place] [address] Hep Func Panelon 08-24-2022 Bilirubin.indirec t [Mass or moles/Vol] UTC Abnormal 0.1-0.9 [facility] Comment on above: Result Comment: Resu lt verified by Discern Rule. Performed result UTC (Unable to Calculate) was sent as an Alpha code due the inability to calculate a valid numeric value. Performed By: #### 1 6373552, 0007763, 3359450, 6089473 #### [facility] [address] [place] [address] Albumin [Mass/Vol] 4.0 g/dL Normal 3.3-5.0 [facility] Comment on above: Performed By: #### 1 6195932, 2365925, 3223520, 3359773 #### [facility] [address] [place] [address] Albumin/Globulin (S) [Mass conc ratio] 1.1 Normal 1.1-2.2 [facility] Comment on above: Performed By: #### 1 2014518, 0502339, 1391864, 0633434 #### [facility] [address] [place] [address] ALP [Catalytic activity/Vol] 93 Int._Unit/L Normal 21-98 [facility] Comment on above: Performed By: #### 1 1019732, 8006821, 2188499, 8822902 #### [facility] [address] [place] [address] ALT No additional P-5'-P [Catalytic activity/Vol] 19 Int._Unit/L Normal 6-46 [facility] Comment on above: Performed By: #### 1 4318696, 0830558, 3229758, 9985467 #### [facility] [address] [place] [address] AST [Catalytic activity/Vol] 24 Int._Unit/L Normal 5-43 [facility] Comment on above: Performed By: #### 1 4212241, 2652145, 3827636, 5228430 #### [facility] [address] [place] [address] Bilirubin [Mass/Vol] 0.6 mg/dL Normal 0.0-1.1 [facility] Comment on above: Performed By: #### 1 3781936, 3529085, 7316453, 3717487 #### [facility] [address] [place] [address] Globulin (S) [Mass/Vol] 3.6 g/dL Normal 1.4-4.0 [facility] Comment on above: Performed By: #### 1 8419497, 7800673, 5242306, 5303536 #### [facility] [address] [place] [address] Protein [Mass/Vol] 7.6 g/dL Normal 6.0-7.8 [facility] Comment on above: Performed By: #### 1 1345610, 2191705, 9282299, 2152785 #### [facility] [address] [place] [address] Bilirubin.direct [Mass/Vol] mg/dL Normal 0.1-0.4 [facility] Comment on above: Performed By: #### 1 0594434, 5474269, 6913781, 2493941 #### [facility] [address] [place] [address] Physician Orderon 08-24-2022 Physician Order [id number]:[id number] Normal [facility] eGFRon 08-24-2022 GFR/1.73 sq M.predicted among non-blacks MDRD (S/P/Bld) [Vol rate/Area] 59 mL/min/1.73 m2 Normal >=59 [facility] Comment on above: Order Comment: Order Added by Discern Expert. Result Comment: Crystalizer Tender jas kidney disease could be indicated at eGFR's of less than 60 mL/min/1.73m2. Kidney failure is indicated at less than 15 mL/min/1.73m2. Performed By: #### 1 4141656, 6541090, 6327536, 4048785 #### [facility] [address] [place] [address] CNPTrish 08-22-2022 CNPN Telephone (HEMTSA) BRENDA MCCLAIN ([id number]) 1950 F Date Time Provider Department 08/22/22 [...] Status:Closed by MAYA GUIDRY on 08/22/22 Normal [facility] FERRITIN BLDon 08-19-2022 Ferritin [Mass/Vol] 108.0 ng/mL 14.7 - 205.1 ng/mL [facility] Iron and Iron binding capaci ty panelon 08-19-2022 Iron [Mass/Vol] 143 ug/dL 41 - 186 ug/dL [facility] Iron binding capacity [Mass/Vol] 336 ug/dL 232 - 386 ug/dL [facility] Iron/TIBC [Molar ratio] 42.6 % 15.0 - 57.0 % [facility] Basic metabolic 2000 panelon 08-18-2022 Anion gap [Moles/Vol] 9 mmol/L Normal 9-18 [facility] Comment on above: Order Comment: Speci men Type: BLOOD SPECIMEN Ordering Facility: [facility] Address: [address] [id number] Performed By: #### 2 4321-2 #### [facility] CLIA [id number] [address] [place] [address] Calcium [Mass/Vol] 9.9 mg/dL Normal 8.5-10.2 [facility] Comment on above: Order Comment: Speci men Type: BLOOD SPECIMEN Ordering Facility: [facility] Address: [address] [id number] Performed By: #### 2 4321-2 #### [facility] CLIA [id number] [address] [place] [address] Chloride [Moles/Vol] 102 mmol/L Normal 97-105 [facility] Comment on above: Order Comment: Speci men Type: BLOOD SPECIMEN Ordering Facility: [facility] Address: [address] [address] Performed By: #### 2 4321-2 #### [facility] CLIA [id number] [address] [place] [address] CO2 [Moles/Vol] 29 mmol/L Normal 22-30 [facility] Comment on above: Order Comment: Speci men Type: BLOOD SPECIMEN Ordering Facility: [facility] Address: [address] [place] [address] Performed By: #### 2 4321-2 #### [facility] CLIA [id number] [address] [place] [address] Creatinine [Mass/Vol] 1.05 mg/dL High 0.58-0.96 [facility] Comment on above: Order Comment: Speci men Type: BLOOD SPECIMEN Ordering Facility: [facility] Address: [address] [place] [address] Performed By: #### 2 4321-2 #### [facility] CLIA [id number] [address] [place] [address] 31287 ESTIMATED GLOMERULAR FILTRATION RATE 56 mL/min/1.73m??? Low >=60 [facility] Comment on above: Order Comment: Speci men Type: BLOOD SPECIMEN Ordering Facility: [facility] Address: [address] [place] [address] Result Comment: Elsy mated Glomerular Filtration Rate [...] GFR. Performed By: #### 2 4321-2 #### [facility] CLIA [id number] [address] [place] [address] 39407 Glucose [Mass/Vol] 70 mg/dL Low 74-99 [facility] Comment on above: Order Comment: Speci men Type: BLOOD SPECIMEN Ordering Facility: [facility] Address: [address] [address] Result Comment: The [place] Diabetes Association (ADA) provides guidance for cutoff [...] Standards of Medical Care in Diabetes 2016, [place] [employer]. Diabetes Care. 2016.39(Suppl 1). Performed By: #### 2 4321-2 #### [facility] CLIA [id number] [address] [place] [address] 39255 Potassium [Moles/Vol] 3.7 mmol/L Normal 3.7-5.1 [facility] Comment on above: Order Comment: Speci men Type: BLOOD SPECIMEN Ordering Facility: [facility] Address: [address] [address] Performed By: #### 2 4321-2 #### [facility] CLIA [id number] [address] [place] [address] 27314 Sodium [Moles/Vol] 140 mmol/L Normal 136-144 [facility] Comment on above: Order Comment: Speci men Type: BLOOD SPECIMEN Ordering Facility: [facility] Address: [address] [address] Performed By: #### 2 4321-2 #### [facility] CLIA [id number] [address] [place] [address] 90440 Urea nitrogen [Mass/Vol] 21 mg/dL Normal 7-21 [facility] Comment on above: Order Comment: Speci men Type: BLOOD SPECIMEN Ordering Facility: [facility] Address: [address] [address] Performed By: #### 2 4321-2 #### [facility] CLIA [id number] [address] [place] [address] Anion gap [Moles/Vol] 9 mmol/L 9 - 18 mmol/L [facility] Calcium [Mass/Vol] 9.9 mg/dL 8.5 - 10.2 mg/dL [facility] Chloride [Moles/Vol] 102 mmol/L 97 - 105 mmol/L [facility] CO2 [Moles/Vol] 29 mmol/L 22 - 30 mmol/L [facility] Creatinine [Mass/Vol] 1.05 mg/dL High 0.58 - 0.96 mg/dL [facility] Estimated Glomerular Filtration Rate 56 mL/min/1.73m Low >=60 mL/min/1.73 m [facility] Glucose [Mass/Vol] 70 mg/dL Low 74 - 99 mg/dL [facility] Potassium [Moles/Vol] 3.7 mmol/L 3.7 - 5.1 mmol/L [facility] Sodium [Moles/Vol] 140 mmol/L 136 - 144 mmol/L [facility] Urea nitrogen [Mass/Vol] 21 mg/dL 7 - 21 mg/dL [facility] CBC W Auto Differential pane l (Bld)on 08-18-2022 Basophils (Bld) [#/Vol] 0.04 10*3/uL Normal <0.11 [facility] Comment on above: Order Comment: Speci men Type: BLOOD SPECIMEN Ordering Facility: [facility] Address: [address] [place] [address] Performed By: #### 5 7021-8 #### [facility] CLIA [id number] [address] [place] [address] 04986 Basophils/100 WBC (Bld) 0.6 % Normal [facility] Comment on above: Order Comment: Speci men Type: BLOOD SPECIMEN Ordering Facility: [facility] Address: [address] [address] Performed By: #### 5 7021-8 #### [facility] CLIA [id number] [address] [place] [address] Differential cell count method Nom (Bld) Auto Normal [facility] Comment on above: Order Comment: Speci men Type: BLOOD SPECIMEN Ordering Facility: [facility] Address: [address] [address] Performed By: #### 5 7021-8 #### [facility] CLIA [id number] [address] [place] [address] 10471 Eosinophils (Bld) [#/Vol] 0.21 10*3/uL Normal <0.46 [facility] Comment on above: Order Comment: Speci men Type: BLOOD SPECIMEN Ordering Facility: [facility] Address: [address] [address] Performed By: #### 5 7021-8 #### [facility] CLIA [id number] [address] [place] [address] 30339 Eosinophils/100 WBC (Bld) 3.3 % Normal [facility] Comment on above: Order Comment: Speci men Type: BLOOD SPECIMEN Ordering Facility: [facility] Address: [address] [address] Performed By: #### 5 7021-8 #### [facility] CLIA [id number] [address] [place] [address] 70344 Erythrocyte distribution width (RBC) [Ratio] 13.3 % Normal 11.5-15.0 [facility] Comment on above: Order Comment: Speci men Type: BLOOD SPECIMEN Ordering Facility: [facility] Address: [address] [address] Performed By: #### 5 7021-8 #### [facility] CLIA [id number] [address] [place] [address] 94229 Hematocrit (Bld) [Volume fraction] 41.1 % Normal 36.0-46.0 [facility] Comment on above: Order Comment: Speci men Type: BLOOD SPECIMEN Ordering Facility: [facility] Address: [address] [address] Performed By: #### 5 7021-8 #### [facility] CLIA [id number] [address] [place] [address] 34455 Hemoglobin (Bld) [Mass/Vol] 13.8 g/dL Normal 11.5-15.5 [facility] Comment on above: Order Comment: Speci men Type: BLOOD SPECIMEN Ordering Facility: [facility] Address: [address] [address] Performed By: #### 5 7021-8 #### [facility] CLIA [id number] [address] [place] [address] 91537 Immature granulocytes (Bld) [#/Vol] 0.03 10*3/uL Normal <0.10 [facility] Comment on above: Order Comment: Speci men Type: BLOOD SPECIMEN Ordering Facility: [facility] Address: [address] [address] Performed By: #### 5 7021-8 #### [facility] CLIA [id number] [address] [place] [address] 92503 Immature granulocytes/100 WBC (Bld) 0.5 % Normal [facility] Comment on above: Order Comment: Speci men Type: BLOOD SPECIMEN Ordering Facility: [facility] Address: [address] [address] Performed By: #### 5 7021-8 #### [facility] CLIA [id number] [address] [place] [address] 67702 Lymphocytes (Bld) [#/Vol] 1.99 10*3/uL Normal 1.00-4.00 [facility] Comment on above: Order Comment: Speci men Type: BLOOD SPECIMEN Ordering Facility: [facility] Address: [address] Performed By: #### 5 7021-8 #### [facility] CLIA [id number] [address] [place] [address] 63032 Lymphocytes/100 WBC (Bld) 31.4 % Normal [facility] Comment on above: Order Comment: Speci men Type: BLOOD SPECIMEN Ordering Facility: [facility] Address: [address] [address] Performed By: #### 5 7021-8 #### [facility] CLIA [id number] [address] [place] [address] 90014 MCH (RBC) [Entitic mass] 31.7 pg Normal 26.0-34.0 [facility] Comment on above: Order Comment: Speci men Type: BLOOD SPECIMEN Ordering Facility: [facility] Address: [address] [place] [address] Performed By: #### 5 7021-8 #### [facility] CLIA [id number] [address] [place] [address] 70272 MCHC (RBC) [Mass/Vol] 33.6 g/dL Normal 30.5-36.0 [facility] Comment on above: Order Comment: Speci men Type: BLOOD SPECIMEN Ordering Facility: [facility] Address: [address] [place] [address] Performed By: #### 5 7021-8 #### [facility] CLIA [id number] [address] [place] [address] 29939 MCV (RBC) [Entitic vol] 94.3 fL Normal 80.0-100.0 [facility] Comment on above: Order Comment: Speci men Type: BLOOD SPECIMEN Ordering Facility: [facility] Address: [address] [place] [address] Performed By: #### 5 7021-8 #### [facility] CLIA [id number] [address] [place] [address] 66008 Monocytes (Bld) [#/Vol] 0.76 10*3/uL Normal <0.87 [facility] Comment on above: Order Comment: Speci men Type: BLOOD SPECIMEN Ordering Facility: [facility] Address: [address] [place] [address] Performed By: #### 5 7021-8 #### [facility] CLIA [id number] [address] [place] [address] 97482 Monocytes/100 WBC (Bld) 12.0 % Normal [facility] Comment on above: Order Comment: Speci men Type: BLOOD SPECIMEN Ordering Facility: [facility] Address: [address] [address] Performed By: #### 5 7021-8 #### [facility] CLIA [id number] [address] [place] [address] 37811 Neutrophils (Bld) [#/Vol] 3.30 10*3/uL Normal 1.45-7.50 [facility] Comment on above: Order Comment: Speci men Type: BLOOD SPECIMEN Ordering Facility: [facility] Address: [address] [address] Performed By: #### 5 7021-8 #### [facility] CLIA [id number] [address] [place] [address] 10595 Neutrophils/100 WBC (Bld) 52.2 % Normal [facility] Comment on above: Order Comment: Speci men Type: BLOOD SPECIMEN Ordering Facility: [facility] Address: [address] [address] Performed By: #### 5 7021-8 #### [facility] CLIA [id number] [address] [place] [address] 71726 Nucleated RBC (Bld) [#/Vol] 10*3/uL Normal <0.01 [facility] Comment on above: Order Comment: Speci men Type: BLOOD SPECIMEN Ordering Facility: [facility] Address: [address] [address] Performed By: #### 5 7021-8 #### [facility] CLIA [id number] [address] [place] [address] 90351 Nucleated RBC/100 WBC (Bld) [Ratio] 0.0 /100 WBC Normal [facility] Comment on above: Order Comment: Speci men Type: BLOOD SPECIMEN Ordering Facility: [facility] Address: [address] [address] Performed By: #### 5 7021-8 #### [facility] CLIA [id number] [address] [place] [address] 92877 Platelet mean volume (Bld) [Entitic vol] 9.5 fL Normal 9.0-12.7 [facility] Comment on above: Order Comment: Speci men Type: BLOOD SPECIMEN Ordering Facility: [facility] Address: [address] [place] [address] Performed By: #### 5 7021-8 #### [facility] CLIA [id number] [address] [place] [address] 91318 Platelets (Bld) [#/Vol] 404 10*3/uL High 150-400 [facility] Comment on above: Order Comment: Speci men Type: BLOOD SPECIMEN Ordering Facility: [facility] Address: [address] [place] [address] Performed By: #### 5 7021-8 #### [facility] CLIA [id number] [address] [place] [address] 17122 RBC (Bld) [#/Vol] 4.36 10*6/uL Normal 3.90-5.20 [facility] Comment on above: Order Comment: Speci men Type: BLOOD SPECIMEN Ordering Facility: [facility] Address: [address] [place] [address] Performed By: #### 5 7021-8 #### [facility] CLIA [id number] [address] [place] [address] 96510 WBC (Bld) [#/Vol] 6.33 10*3/uL Normal 3.70-11.00 [facility] Comment on above: Order Comment: Speci men Type: BLOOD SPECIMEN Ordering Facility: [facility] Address: [address] [place] [address] Performed By: #### 5 7021-8 #### [facility] CLIA [id number] [address] [place] [address] 09121 Basophils (Bld) [#/Vol] 0.04 10*3/uL <0.11 k/uL [facility] Basophils/100 WBC (Bld) 0.6 % [facility] Differential cell count method Nom (Bld) Auto [facility] Eosinophils (Bld) [#/Vol] 0.21 10*3/uL <0.46 k/uL [facility] Eosinophils/100 WBC (Bld) 3.3 % [facility] Erythrocyte distribution width (RBC) [Ratio] 13.3 % 11.5 - 15.0 % [facility] Hematocrit (Bld) [Volume fraction] 41.1 % 36.0 - 46.0 % [facility] Hemoglobin (Bld) [Mass/Vol] 13.8 g/dL 11.5 - 15.5 g/dL [facility] Immature granulocytes (Bld) [#/Vol] 0.03 10*3/uL <0.10 k/uL [facility] Immature granulocytes/100 WBC (Bld) 0.5 % [facility] Lymphocytes (Bld) [#/Vol] 1.99 10*3/uL 1.00 - 4.00 k/uL [facility] Lymphocytes/100 WBC (Bld) 31.4 % [facility] MCH (RBC) [Entitic mass] 31.7 pg 26.0 - 34.0 pg [facility] MCHC (RBC) [Mass/Vol] 33.6 g/dL 30.5 - 36.0 g/dL [facility] MCV (RBC) [Entitic vol] 94.3 fL 80.0 - 100.0 fL [facility] Monocytes (Bld) [#/Vol] 0.76 10*3/uL <0.87 k/uL [facility] Monocytes/100 WBC (Bld) 12.0 % [facility] Neutrophils (Bld) [#/Vol] 3.30 10*3/uL 1.45 - 7.50 k/uL [facility] Neutrophils/100 WBC (Bld) 52.2 % [facility] Nucleated RBC (Bld) [#/Vol] <0.01 k/uL [facility] Nucleated RBC/100 WBC (Bld) [Ratio] 0.0 /100 WBC [facility] Platelet mean volume (Bld) [Entitic vol] 9.5 fL 9.0 - 12.7 fL [facility] Platelets (Bld) [#/Vol] 404 10*3/uL High 150 - 400 k/uL [facility] RBC (Bld) [#/Vol] 4.36 10*6/uL 3.90 - 5.2 0 m/uL [facility] WBC (Bld) [#/Vol] 6.33 10*3/uL 3.70 - 11.00 k/uL [facility] CNOVSPon 08-18-2022 CNOVSP Visit (SP) Office (H [facility]AS[facility]) BRENDA MCCLAIN ([id number]) 1950 F Date Time Provider Department 08/18/22 [...] petechiae. LABOR (more content not included)... Normal [facility] Ferritin SerPl-ncon 2022 Ferritin [Mass/Vol] 108.0 ng/mL Normal 14.7-205.1 [facility] Comment on above: Order Comment: Ajay nath Type: BLOOD SPECIMEN Ordering Facility: [facility] Address: [address] [place], [place] [address] Performed By: #### 5 0190-8, 2885-2, 2276-4 #### [facility] CLIA [id number] [address] [place] [address] [place] IMMUNOFIXATION SCREEN, SERUM on 08-18-2022 INTERPRETATION (MPA) Atypical restricted bands are present in the IgG and lambda regions. Consistent with IgG lambda monoclonal gammopathy. Normal [facility] Comment on above: Order Comment: Ajay nath Type: BLOOD SPECIMEN Ordering Facility: [facility] Address: [address] [id number] Performed By: #### 5 0190-8, 2885-2, 6-4 #### [facility] CLIA [id number] [address] [place] [address] MPA RESULT M protein is present. Abnormal No M protein is identified. [facility] Comment on above: Order Comment: Speci men Type: BLOOD SPECIMEN Ordering Facility: [facility] Address: [address] Performed By: #### 5 0190-8, 2885-2, 6-4 #### [facility] CLIA [id number] [address] [place] [address] OF [facility] STAFF REVIEW (MPA) Reviewed by Zaira Fishman MD [facility] Comment on above: Order Comment: Speci men Type: BLOOD SPECIMEN Ordering Facility: [facility] Address: [address] Performed By: #### 5 0190-8, 2885-2, 2275-4 #### [facility] CLIA [id number] [address] [place] [address] [place] IMMUNOGLOBULINS GAMon 2022 IgA [Mass/Vol] 335 mg/dL Normal 70-400 [facility] Comment on above: Order Comment: Speci men Type: BLOOD SPECIMEN Ordering Facility: [facility] Address: [address] Performed By: #### S ERIMM #### [facility] CLIA [id number] [address] [place] [address] [place] IgG [Mass/Vol] 1369 mg/dL Normal 700-1600 [facility] Comment on above: Order Comment: Speci men Type: BLOOD SPECIMEN Ordering Facility: [facility] Address: [address] Performed By: #### S ERIMM #### [facility] CLIA [id number] [address] [place] [address] [place] IgM [Mass/Vol] 151 mg/dL Normal 40-230 [facility] Comment on above: Order Comment: Speci men Type: BLOOD SPECIMEN Ordering Facility: [facility] Address: [address] [place] [address] Performed By: #### S ERIMM #### [facility] CLIA [id number] [address] [place] [address] [place] Iron and Iron binding capaci ty panelon 08-18-2022 Iron [Mass/Vol] 143 ug/dL Normal 41-186 [facility] Comment on above: Order Comment: Speci men Type: BLOOD SPECIMEN Ordering Facility: [facility] Address: [address] [place] [address] Performed By: #### 5 0190-8, 2885-2, 6-4 #### [facility] CLIA [id number] [address] [place] [address] [place] Iron binding capacity [Mass/Vol] 336 ug/dL Normal 232-386 [facility] Comment on above: Order Comment: Speci men Type: BLOOD SPECIMEN Ordering Facility: [facility] Address: [address] [place], [place] [address] Performed By: #### 5 0190-8, 2885-2, 6-4 #### [facility] CLIA [id number] [address] [place] [address] [place] Iron/TIBC [Molar ratio] 42.6 % Normal 15.0-57.0 [facility] Comment on above: Order Comment: Speci men Type: BLOOD SPECIMEN Ordering Facility: [facility] Address: [address] [place], [place] [address] Performed By: #### 5 0190-8, 2885-2, 2276-4 #### [facility] CLIA [id number] [address] [place], [place] [address] [place] KAPPA/GOMEZ,FREE,SERon 2022 Immunoglobulin light chains.kappa.free (S) [Mass/Vol] 32.1 mg/L High 3.3-19.4 [facility] Comment on above: Order Comment: Ajay nath Type: BLOOD SPECIMEN Ordering Facility: [facility] Address: [address] [place] [address] Result Comment: Rare ly, increased serum free light chains levels may not be detected or accurately quantified due to prozone phenomenon or in high viscosity samples using this immunoturbidimetric assay. Correlation with other laboratory results and clinical findings is recommended. The Hi-Nella Free Light Chain was performed using the Binding Site Optilite immunoturbidimetric method. Result obtained with different assay methods or kits cannot be used interchangeably. Performed By: #### 5 0190-8, 2885-2, 2276-4 #### [facility] CLIA [id number] [address] [place] [address] Immunoglobulin light chains.kappa/Immu noglobulin light chains.lambda (S) [Mass ratio] 1.10 Normal 0.26-1.65 [facility] Comment on above: Order Comment: Ajay nath Type: BLOOD SPECIMEN Ordering Facility: [facility] Address: [address] [place] [address] Performed By: #### 5 0190-8, 2885-2, 2276-4 #### [facility] CLIA [id number] [address] [place] [address] [place] Immunoglobulin light chains.lambda.kurt e [Mass/Vol] 29.2 mg/L High 5.7-26.3 [facility] Comment on above: Order Comment: Ajay nath Type: BLOOD SPECIMEN Ordering Facility: [facility] Address: [address] [place] [address] Result Comment: Rare ly, increased serum free [...] By: #### 5 0190-8, 2884-2, 2275-05 #### [facility] CLIA [id number] [address] [place] [address] [place] PROTEIN ELECTROPHORESIS SERU M WITH DARÍO (P)on 08-18-2022 Albumin [Mass/Vol] 4.20 g/dL Normal 3.43-5.41 [facility] Comment on above: Order Comment: Speci men Type: BLOOD SPECIMEN Ordering Facility: [facility] Address: [address] [place] [address] Performed By: #### 5 0190-8, 2884-03, 2275-05 #### [facility] CLIA [id number] [address] [place] [address] [place] Alpha 1 globulin Elph [Mass/Vol] 0.29 g/dL Normal 0.18-0.43 [facility] Comment on above: Order Comment: Speci men Type: BLOOD SPECIMEN Ordering Facility: [facility] Address: [address] [place] [address] Performed By: #### 5 0190-8, 2884-03, 2275-05 #### [facility] CLIA [id number] [address] [place] [address] [place] Alpha 2 globulin Elph [Mass/Vol] 0.60 g/dL Normal 0.42-0.98 [facility] Comment on above: Order Comment: Speci men Type: BLOOD SPECIMEN Ordering Facility: [facility] Address: [address] [place], [place] [address] Performed By: #### 5 0190-8, 2884-03, 2275-05 #### [facility] CLIA [id number] [address] [place] [address] [place] Beta globulin Elph [Mass/Vol] 1.01 g/dL Normal 0.61-1.17 [facility] Comment on above: Order Comment: Speci men Type: BLOOD SPECIMEN Ordering Facility: [facility] Address: [address] [place] [address] Performed By: #### 5 0190-8, 2885-2, 2275-4 #### [facility] CLIA [id number] [address] [place] [address] [place] COMMENT (SERUM PROT ELECTRO) Monoclonal Protein analysis (immunofixation) is not indicated. Normal [facility] Comment on above: Order Comment: Speci men Type: BLOOD SPECIMEN Ordering Facility: [facility] Address: [address] [place] [address] Performed By: #### 5 0190-8, 2884-2, 2275-05 #### [facility] CLIA [id number] [address] [place] [address] [place] Gamma globulin Elph [Mass/Vol] 1.30 g/dL Normal 0.53-1.51 [facility] Comment on above: Order Comment: Speci men Type: BLOOD SPECIMEN Ordering Facility: [facility] Address: [address] [place] [address] Performed By: #### 5 0190-8, 2884-2, 2275-05 #### [facility] CLIA [id number] [address] [place] [address] [place] INTERPRETATION COMMENT FOR PROTEIN ELECTROPHORESIS Normal [facility] Comment on above: Order Comment: Speci men Type: BLOOD SPECIMEN Ordering Facility: [facility] Address: [address] [place] [address] Result Comment: See separate immunofixation report for characterization of monoclonal gammopathy. M protein is present on the background of a polyclonal immunoglobulin population. Quantitation of the M protein may overestimate the amount of M protein present. Performed By: #### 5 0190-8, 2885-2, 2275-4 #### [facility] CLIA [id number] [address] [place] M-PROTEIN LOCATION Gamma Fraction 1 Normal [facility] Comment on above: Order Comment: Speci men Type: BLOOD SPECIMEN Ordering Facility: [facility] Address: [address] [place] [address] Performed By: #### 5 0190-8, 2885-2, 6-4 #### [facility] CLIA [id number] [facility] [place] [address] [place] Protein Fractions [Interp] An M protein is identified on protein electrophoresis. Abnormal No definitive M protein is identified on protein electrophor esis. [facility] Comment on above: Order Comment: Speci men Type: BLOOD SPECIMEN Ordering Facility: [facility] Address: [address] [place] [address] Performed By: #### 5 0190-8, 2885-2, 2275-4 #### [facility] CLIA [id number] [address] [place] [address] [place] Protein.monoclona l Elph [Mass/Vol] 0.42 g/dL High <=0.00 [facility] Comment on above: Order Comment: Speci men Type: BLOOD SPECIMEN Ordering Facility: [facility] Address: [address] [place], [place] [id number] Performed By: #### 5 0190-8, 2885-2, 2275-4 #### [facility] CLIA [id number] [address] [place] [address] [place] SPE STAFF REVIEW Reviewed by Zaira Fishman MD [facility] Comment on above: Order Comment: Speci men Type: BLOOD SPECIMEN Ordering Facility: [facility] Address: [address] [place], [place] [id number] Performed By: #### 5 0190-8, 2885-2, 6-4 #### [facility] CLIA [id number] [address] [place] [address] [place] Prot SerPl-mCncon 08-18-2022 Protein [Mass/Vol] 7.4 g/dL Normal 6.3-8.0 [facility] Comment on above: Order Comment: Speci men Type: BLOOD SPECIMEN Ordering Facility: [facility] Address: [address] [place] [id number] Performed By: #### 5 0190-8, 2885-2, 2276-4 #### [facility] CLIA [id number] [facility] DESK [address] [address] [facility] Coding Summary.on 05-26-2022 Coding Summary. CD:[id number] Ww+PGhlYWQ+ [id number] tICBRKDqXYuReskSgWK8tmMGmZDBb IC8+XQ9aFYAuQupjlMMwn4L1rMZ3A86 ifx9dFVvqoTG4NZDxTtNcgcbyz2hxoB y1NRoxSxjfYzOa SXSapH24VYU3eA37Uc16gQLutTDnw2c pkYn6McWwSSWxGPU1cIadIWtst2SvGB FaR04fkFOlh4Y5 YEHioKcreVXeAvAdsQL1vX5fOTzigri kb5rhlagpZbp7ac96rWGcp4Q5jOW2V3 DkhlW5BIDjpHUh GcwrhPUPgM0mhpvyg3tgnjgcNbVhCWB tXKi8JMe3IBQorFxpTrWoMK83SJL5OS JvnkZpL6WpRBWy kBgvPdR3g6F2Sk8LX4RMYlahD9EDMBQ SWTwvdGQ+UQ73ly03N3QqHxthFbg9ZM PrSOM0nLN8tN1z MBPlIFvdg9A4dNL1X4VylwWhrj8lr8h fKFOqOYdvZ09ujBNaq1F8EBArpJO1LR MrmZxnWrAfqU95 Oyc+PBJulNgdd9MySvoha3hfu1xbkOx 1QcbpIPFgmrUebPenCJF4c6QyJu3pAX DcnIF1yDX7iQ4k EeVvTuI7NKnfG107ZwEryDJdFurjJ34 uP3AgiXY+SMHsHzk0BUEprBkyIA6rT4 BhZGRpbmctbGVm jWajKK4aOXBjcohjTNAgoY5jPMIwT2f 2AuPjJdL8UEiyD3FlLKFymicuOe66tB 9gZgFmPqJ3FQud G9XcvrS7GMDlvJBdQKxlJPT2S17ra3J 2OZEaJLQgJHW5gQM4bH5tfBudpkewwA VmdDsgdmVydGlj TJhgACapE232VYBpuDugAjAqNCqjSiN EYXRlOiAgMDQvMDYvMjAyMzwvdGQ+PH YbKXA2sLtlTWAz yCTcLZzjTp7yxKivkGfdAZ7jNAKuzda mNIYeiX8zTWPauOBkuKcgIL3rCHWakk asi953GsStDOY9 GFIqfJIdJ1HgpP2zUqWrJWSbBPOgA3G kuCFfWBzwW465BZvuLeX1NOYbryPaJ4 FsLWFsaWduOiB0 e6T1Nt3Dh7UrtaikL6OulRYiVmUnXsi zXRz6Q6NxSzavuIG+SM47VIXwXE32EZ p0LMR0cOqwKVnu UQYaF5CzyK9cXiFbYFXfZESaGld+PHR hYmxlIHdpZHRoPScxMDAlJyBzdHlsZT 4kRi3oLBQzHUVs lIuvbYIdUsKmy7skVOKrWTzqJA3qjOr sZ9SohOZ6EOEqn5a8Ix27M24gZ5CnpN A+WKIvyBS8qTG8 kN9tMjPuPzL4WJsrZ622ZdYffYPqLmy uz8rrg1ozkFx0JnW8BWZmnfJrhVjbQN L7k3UpZq65D32f QFptYBCmGFGfQBGaYAUqyNeusb9vvO5 wIi8+PUDtoQR1cBX3bE1dFfAyFvL3BF flC607QwXmpADg Oydkh9rno3ewhKd2KgQqQFJgpxEgvRq lVXB9z3DuOl57W8HibUcsd7IiWcb4na 31gFQqh2V6fBI5 F8WcKQXectkitCLqtUfhFD0uKVZfetu zCDSxzH6aBDLqS2j3JiCaJzX0LBvzA4 YccoQ8UDWprOSw QHNgyDKJdJ3ahdhxi0geythnQaCiWLU mYFg5HAd2MPGirRzwSeVlWZL4PoA6RT N5qNFdeY9ewVqa tdmmkH8qWyy+LON6vGVabMPGEA3dOic vdGQ+UGWzDMF8cPjpFOihOCCfiR4dTN UpR3g6ZlEpQyE4 VBiuV2ZcphB2PHSevUDwXYAjkNKMhD9 iyhbef7szaokfFuIrPMCzMPz4NNg4RA FsaWduOiBsZWZ0 PxB0CXZ8mWUaiE6ytGcphdczuA0tEzp +TgsxjInzHGO7IZt3V6ThVfg0XKFedV tnRU9wlZQfYZfg Ls7zsXpbcOpkXF7pCNQzgolui358RuB nu0tnWCYypQBcOBbwDOO4T06yv5H8MQ CkSIZdOTL6jLL9 yX7uyFxdvveomCGkoMubaoFrzIokTZh fZSmtR577RUDsqQvkCkAcCXa4T2RkUv u8IZYosMumLH7p bMCaQVfcUt1djWwhtZpiEI7pIWOgbvy pt113QbPwh6fxOWIslEScLCqzYIS5D6 8tl1X1VMIuVBVl TXB1nPT7mN1mwAgtcghozOIvlQzxreP kkLjiIEsdIKnqV095UXIabCerCgSqbL d4S9QeByg9VITl cLysVX2ezNCtSUhlCf9fiPwwxPmkTH5 iMLLsyalwp435NvAzo7pyZGMupYCfTB jnSJB2D37kn2Z2 PAMhMXXfEKV2oPH1hO7ezDfrxwleoHA iwBedzsPsjOolRBjyLNdzW410OUHeaA snPlBhdGllbnQg TZhbVAf4J0ZlBidoaST+UJ80ATPuQL4 9xAArmRFkz3eruQe9FrRnXRWgZOT2rO xxSCkpe8QmGPPw P32tqIHec1L0WAIbjYyfbMQjIrBnsIN 1xO9jNJswrxcbw3nasbsrDwkue3jwcd 78rB86O67tNNkf DMPaPWQaHWSaGWKjfXiqhr2keP2lBf4 +OLTpwMF1vOH5oS7dBLHfWzD6FTznT6 49InRvcCIvPjxj e3qyu9tikDq9YwQ2FIJpmzFriOntTBW 3v2OaAa18P93pACcjFVLpJOCzPFYgIA HgwWbaif4oeY9c Ii8+VMQyfNM7jAN8rP9tPwRsMuE8GDu zZ940JuKetPLvMxqqE50kN1QbwHT+PH XqWyp7PVQqoNis QS5nqIKmQPxbIx1vKBW1TjBfGlXqMJe cD3DrQHPnqrsvumncpRT5LVOuPBQznQ 49Ff7tjYcnPMMs vZQMvM0xuumea9gmhihuWsDgXMAmTKn 2LNo3WNTjcVgtMyTyOBZ0XsC7VVA1xX CmnC2cbQzrnbkw zC1kG7IlZHZyfbafPw43iH1uGmChIqR 1MGluOyc+EsXVKCyvITHJE7rDTXs3U9 YhLgi9OXJrcAjg CQ5rvFVaGSpzFu7ejZixdHcbBM8wHJC ojgnvMBUhvE4qTQCdsCSagXdsXE0uBK Ogmldzo516KzVr OJY7YWRahKAcG5DhxY1tVoXpEEQsFKZ kM5CqtQZtCFmyI999TTgnHfE2RYHotq UyP5JyVTVvuYpn FgR5b9K0Ia2wPV8bOW4bDBM7UN19XV8 5eHPud3L5nXH5D0DgLTHqbwkijjeoeK A2BFYrUUTukZ44 wIBoTWhnMe7fj8A1q016TIWjPHMutN3 2Wf3zyKqgYLBytMFXdZ7eyefvr0kopz ogIzAwMDAwMDt0 OIa4YYMixMujCxYgTYH8TfC1KIU8uMO vmD0knBfnbyozjK5rVzf+NzQgWWVhcn B7W1CqXzk6YGDz qHggKK5esZHzXBkuEv5oyJbeqRddVT9 lVXOczqvsKTWecT0kHYNgkXNpqAjrIZ 4cPIIdvpxjz722 VvZtTLT1TZXdeNNqD2BcgW3aXxFvWYE uTDOoZ8DajQTbRDjsG448NHsfWfC3PX KckmSzV9TzOVIc cMiyAhT1p7R0Ih3QDH2czIJ2O4AmTvo 8OAJqwKjcUX7tgXNvAEcfAv7rvLchpA gwIC3fHJWwvmna BGPipK9uHTUcxBMwmGivDW2zSGNnomc kv345WpNfUHX0VRPcpNBxC0HifQ7hAu LxXVRyHDIjZ0Py eBTwRFqxN177FKboQmU8TVJgmiIzI3N yRZCxpNcbOdM7e9J1Aa8AeIBxIRLgZX 74MS25WY23S7Wq PjwvdGFibGU+PHRhYmxlIHdpZHRoPSc vEBWvZyAxwOkxDE1iBn3eVBWtAOQhaC jccVLyAbRro6rx AYGhLZcdAC2gwAwdN9QemML5DBTon5f 6Ic42T06lT2LkeQG+VOIjqSI0yQP4tT 5yVaFgChU9PGkd T365KpPooSYyHmrzk3bvq9nbkZr7IrK kECPntcLqxLluBBA2g0JpHs82Y97cFR dpZHRoPSIyMCUi UTEtkLgrlx9rkD0hBk7+UISskQH3jJM 5uE8pFqXiEvV1OQmzS500GzQvfISxWn nbH99wA3XtxRY+ RCPrOwg1TQKdeOykVK7eyAFrUOngFc8 kXYK1BgMhMsHpUEwfF0OdWMKddmtsnf qjhBQ1THDbAONh pQ21Tv8mwUpbSr5yXUIyNWU6CBIqpJK rX5NidK8cGmCwCXJhAHGiZ4ZpjZKbFN pgK107BWhkEjY6 JPJpahVeH7ZyCZVxuErkDcH9a5I3Ki9 AsEqimXYlWR6nCxCvBLi4G7JeYwi1WM YapCfbXI8owCXq UWtbXt5oiLbsrFdwVT6mOQRxemnla57 2NjEih0vmGJAflNEnGYaoURW7O03ei5 G6EFYzCWEzTCN3 kAL3mY4imQrwzzdsuFNubThzxyJpsWu vSTyhQMglK824WGAhnCnjKcTFWkn6R4 JiHaw7JPZdeUrm DY2hhSRjXMirDd8svGgowXzuDS4zPEI pnofrp518AxOox5xgDZEapULaJFcwHU B9E47gn1A0ZLDg ELJeHLO4aZM4aR4ypPksysgnkIKfkIj ottRhcNskPDkaCPghA109SNWdtJrsTz 7NBmz5J5NjTsz2 MVCoiBhsRD5wsYPgYSbsGj2dhGadhNe nAB8bHLYewntct704FeGjt6ucAOTafQ KzLEztUWB5B39b s5L1OZLaSTKsOSC0aBK5kT8evTuqjea reUMaqNgrggMgqUhhXInpOCykP685CW RvcDsnPlBheWVy OjwvdGQ+SB98xo51M6AiBxmtAzq4ZBP fFLW5fBH1bB4gUOHbTXrgm7V9qYG7Y7 MieeGgfw5qr8vx YXBzZTog (more content not included)... Normal [facility] [place] Mamm Screen w/CAD if perf and [...] very important to your health. The current [employer] and National Comprehensive Cancer [...] Category 1-Negative Recommendation: Normal interval follow-up Normal [facility] Consent for Treatmenton 04-21 Consent for Treatment [id number] Normal [facility] Complete Blood Count with Au to Diffon 04-13-2021 Basophils (Bld) [#/Vol] 0.06 10*3/uL Normal 0.00-0.20 [facility] Analyst Comment on above: Performed By: #### C LAURA HOLGUIN, CBCAD #### [facility] [address], [place] [id number] Basophils/100 WBC (Bld) 0.8 % Normal [facility]st Comment on above: Performed By: #### C LAURA HOLGUIN, CBCAD #### [facility] [address], [place] [id number] Eosinophils (Bld) [#/Vol] 0.52 10*3/uL High 0.02-0.50 [facility] Analyst Comment on above: Performed By: #### C SARAH BETH HOLGUIND, CBCAD #### [facility] [address], [place] [id number] Eosinophils/100 WBC (Bld) 7.3 % Normal [facility] Analyst Comment on above: Performed By: #### C SARAH BETH HOLGUIND, CBCAD #### [facility] [address], [place] [id number] Erythrocyte distribution width (RBC) [Ratio] 13.1 % Normal 11.0-15.0 [facility] Analyst Comment on above: Performed By: #### C SARAH BETH HOLGUIND, CBCAD #### [facility] [address], [place] [id number] Hematocrit (Bld) [Volume fraction] 43.9 % Normal 35.0-47.0 [facility] Analyst Comment on above: Performed By: #### C CHELSIE LIPD, CBCAD #### [facility] [address], [place] [id number] Hemoglobin (Bld) [Mass/Vol] 14.5 g/dL Normal 11.6-15.5 [facility] Specialist Comment on above: Performed By: #### C MP LIPD, CBCAD #### [facility] [address], [place] [id number] Lymphocytes (Bld) [#/Vol] 2.4 10*3/uL Normal 0.9-3.9 [facility] Comment on above: Performed By: #### C MP, LIPD, CBCAD #### [facility] [address], [place] [id number] Lymphocytes/100 WBC (Bld) 34.2 % Normal [facility] Special[facility] Comment on above: Performed By: #### C CHELSIE LIPD, CBCAD #### [facility] [address], [place] [id number] MCH (RBC) [Entitic mass] 31.6 pg Normal 27.0-33.0 [facility] Special[facility] Comment on above: Performed By: #### C CHELSIE, LIPD, CBCAD #### [facility] [address], [place] [id number] MCHC (RBC) [Mass/Vol] 33.0 g/dL Normal 32.0-36.0 [facility] Comment on above: Performed By: #### C CHELSIE LIPD, CBCAD #### [facility] [address], [place] [id number] MCV (RBC) [Entitic vol] 96 fL Normal 80-100 [facility] Special[facility] Comment on above: Performed By: #### C MP, LIPD, CBCAD #### [facility] [address], [place] [id number] Monocytes (Bld) [#/Vol] 0.9 10*3/uL Normal 0.2-0.9 [facility] Special[facility] Comment on above: Performed By: #### C MP, LIPD, CBCAD #### [facility] [address], [place] [id number] Monocytes/100 WBC (Bld) 13.0 % Normal [facility] Specialist Comment on above: Performed By: #### C MP, LIPD, CBCAD #### [facility] [address], [place] [id number] Neutrophils (Bld) [#/Vol] 3.2 10*3/uL Normal 1.5-7.8 [facility] Comment on above: Performed By: #### C MP, LIPD, CBCAD #### [facility] [address], [place] [id number] Neutrophils/100 WBC (Bld) 44.3 % Normal [facility] Comment on above: Performed By: #### C MP, LIPD, CBCAD #### [facility] [address], [place] [id number] Platelet mean volume (Bld) [Entitic vol] 10.30 fL Normal 7.50-12.50 [facility] Comment on above: Performed By: #### C MP, LIPD, CBCAD #### [facility] [address], [place] [id number] Platelets (Bld) [#/Vol] 453 10*3/uL High 140-400 [facility] Comment on above: Performed By: #### C MP, LIPD, CBCAD #### [facility] [address], [place] [id number] RBC (Bld) [#/Vol] 4.59 10*6/uL Normal 3.90-5.20 [facility] Comment on above: Performed By: #### C MP, LIPD, CBCAD #### [facility] [address], [place] [id number] RDW-SD 45.7 fL Normal 37.0-50.0 [facility] Comment on above: Performed By: #### C MP, LIPD, CBCAD #### [facility] [address], [place] [id number] WBC (Bld) [#/Vol] 7.1 10*3/uL Normal 3.8-11.0 [facility] Comment on above: Performed By: #### C MP, LIPD, CBCAD #### [facility] [address], [place] [id number] Comprehensive Metabolic Pane alfonzo 04-13-2021 Albumin [Mass/Vol] 4.5 g/dL Normal 3.6-5.1 [facility] Specialist Comment on above: Performed By: #### C LAURA HOLGUIN, CBCAD #### [facility] [address], [place] [id number] Albumin/Globulin [Mass ratio] 1.6 {ratio} Normal 1.0-2.5 [facility] Comment on above: Performed By: #### C LAURA HOLGUIN, CBCAD #### [facility] [address], [place] [id number] ALP [Catalytic activity/Vol] 125 U/L High 35-119 [facility] Specialist Comment on above: Performed By: #### C LAURA HOLGUIN, CBCAD #### [facility] [address], [place] [id number] ALT [Catalytic activity/Vol] 12 U/L Normal 6-33 [facility] Special[facility] Comment on above: Result Comment: 01/20 Female reference range changed. Performed By: #### C LAURA HOLGUIN, CBCAD #### [facility] [address], [place] [id number] Anion gap [Moles/Vol] 20 mmol/L Normal 12-20 [facility] Risk Analyst Comment on above: Result Comment: Effe ctive 02/25/2019 reference range changed. Performed By: #### C LAURA HOLGUIN, CBCAD #### [facility] [address], [place] [id number] AST [Catalytic activity/Vol] 20 U/L Normal 9-34 [facility] Risk Analyst Comment on above: Performed By: #### C LAURA HOLGUIN, CBCAD #### [facility] [address], [place] [id number] Bilirubin [Mass/Vol] 0.55 mg/dL Normal 0.30-1.20 [facility] Risk Analyst Comment on above: Performed By: #### C LAURA HOLGUIN, CBCAD #### [facility] [address], [place] [id number] BUN/CREA 22 Ratio Normal 6-22 [facility] Risk Analyst Comment on above: Performed By: #### C LAURA HOLGUIN, CBCAD #### [facility] [address] [place], [place] [id number] Calcium [Mass/Vol] 10.1 mg/dL Normal 8.6-10.2 [facility] Risk Analyst Comment on above: Performed By: #### C LAURA HOLGUIN, CBCAD #### [facility] [address], [place] [id number] Chloride [Moles/Vol] 104 mmol/L Normal 98-107 [facility] Risk Analyst Comment on above: Performed By: #### C LAURA HOLGUIN, CBCAD #### [facility] [address], [place] [id number] CO2 [Moles/Vol] 24 mmol/L Normal 20-31 [facility] Risk Analyst Comment on above: Performed By: #### C LAURA HOLGUIN, CBCAD #### [facility] [address], [place] [id number] Creatinine [Mass/Vol] 0.9 mg/dL Normal 0.6-1.4 [facility] Risk Analyst Comment on above: Performed By: #### C LAURA HOLGUIN, CBCAD #### [facility] [address], [place] [id number] eGFRAA 71 mL/min/1.73m2 Normal >60 [facility] Risk Analyst Comment on above: Performed By: #### C LAURA HOLGUIN, CBCAD #### [facility] [address], [place] [id number] eGFRNAA 58 mL/min/1.73m2 Low >60 [facility] Risk Analyst Comment on above: Performed By: #### C LAURA HOLGUIN, CBCAD #### [facility] [address], [place] [id number] Globulin (S) [Mass/Vol] 2.8 g/dL Normal 1.9-3.7 [facility] Risk Analyst Comment on above: Performed By: #### C LAURA HOLGUIN, CBCAD #### [facility] [address], [place] [id number] Glucose [Mass/Vol] 110 mg/dL High 65-99 [facility] Risk Analyst Comment on above: Result Comment: For FASTING Glucose --- ADA reference ranges: Normal 65-99 mg/dl Prediabetes 100-125 Diabetes >/= 126 Performed By: #### C MP, LIPD, CBCAD #### [facility] [address] [facility] [place] [id number] Potassium [Moles/Vol] 4.3 mmol/L Normal 3.5-5.5 [facility] Specialist Comment on above: Performed By: #### C MP, LIPD, CBCAD #### [facility] [address] [facility] [id number] Protein [Mass/Vol] 7.3 g/dL Normal 6.1-8.1 [facility] Risk Analyst Comment on above: Performed By: #### C MP, LIPD, CBCAD #### [facility] [address] [facility] [id number] Sodium [Moles/Vol] 143 mmol/L Normal 135-146 [facility] Risk Analyst Comment on above: Performed By: #### C MP, LIPD, CBCAD #### [facility] [address] [facility] [id number] Urea nitrogen [Mass/Vol] 20 mg/dL Normal 7-25 [facility] Risk Analyst Comment on above: Performed By: #### C MP, LIPD, CBCAD #### [facility] [address] [facility] [id number] Lipid Panelon 04-13-2021 Cholesterol [Mass/Vol] 196 mg/dL Normal 125-200 [facility] Risk Analyst Comment on above: Result Comment: Low risk < 200mg/dL Borderline risk 201-239 mg/dl High risk > or equal to 240 Performed By: #### C MP, LIPD, CBCAD #### [facility] [address], [place] [id number] Cholesterol in HDL [Mass/Vol] 46 mg/dL Normal >40 [facility] Risk Analyst Comment on above: Result Comment: High Cardiovascular Risk HDL <40 mg/dL Low Cardiovascular Risk HDL > or equal to 60 mg/dl Performed By: #### C MP, LIPD, CBCAD #### [facility] [address] [facility] [id number] Cholesterol in LDL [Mass/Vol] 98 mg/dL Normal [facility] Risk Analyst Comment on above: Result Comment: LDL ATP III CLASSIFICATION LDL less than 100 mg/dl Optimal LDL 100-129 mg/dl Near or above optimal LDL 130-159 Borderline high LDL 160-189 High LDL greater than 189 mg/dl Very High Performed By: #### C CHELSIE, SARAH BETHD, CBCAD #### [facility] [address], [place] [id number] Cholesterol in VLDL [Mass/Vol] 52 mg/dL Normal [facility] Comment on above: Performed By: #### C CHELSIE, LIPD, CBCAD #### [facility] [address], [place] [id number] Cholesterol.total /Cholesterol in HDL [Mass ratio] 4 {ratio} Normal [facility] Specialist Comment on above: Performed By: #### C CHELSIE, LIPD, CBCAD #### [facility] [address], [place] [id number] Triglyceride [Mass/Vol] 262 mg/dL High 30-150 [facility] Specialist Comment on above: Result Comment: TRIG ATPIII CLASSIFICATIONS TRIG less than 150 mg/dl Normal TRIG 150-199 mg/dl Borderline High TRIG 200-500 mg/dl High TRIG greather than 500 mg/dl Very High Performed By: #### C CHELSIE, LIPD, CBCAD #### [facility] [address], [place] [id number] Basic Metabolic Panlon 02-17 Anion gap 3 molar conc 9 mmol/L Normal -18 [facility] Comment on above: Performed By: #### C BCDIF, BMP, MG1, PHOS, PT ####[facility] [phone] Calcium mass conc 8.5 mg/dL Normal 8.5-10.5 [facility] Comment on above: Performed By: #### C BCDIF, BMP, MG1, PHOS, PT ####[facility] [place] [phone] Chloride molar conc 109 mmol/L Normal 98-110 [facility] Comment on above: Performed By: #### C BCDIF, BMP, MG1, PHOS, PT ####[place] [phone] CO2 molar conc 25 mmol/L Normal 23-32 [facility] Comment on above: Performed By: #### C BCDIF, BMP, MG1, PHOS, PT ####[place] [phone] Creatinine mass conc 0.62 mg/dL Low 0.70-1.40 [facility] Comment on above: Performed By: #### C BCDIF, BMP, MG1, PHOS, PT ####[place] [phone] eGFR- Amer. >60 Normal >60 [facility] Comment on above: Performed By: #### C BCDIF, BMP, MG1, PHOS, PT ####[place] [phone] GFR/1.73 sq M predicted among non-blacks MDRD vol rate/area (S/P/Bld) mL/min/{1.73_m2} Normal >60 [facility] Comment on above: Performed By: #### C BCDIF, BMP, MG1, PHOS, PT ####[place] [phone] Glucose mass conc 109 mg/dL High 65-100 [facility] Comment on above: Performed By: #### C BCDIF, BMP, MG1, PHOS, PT ####[place] [phone] Potassium molar conc 3.5 mmol/L Normal 3.5-5.0 [facility] Comment on above: Performed By: #### C BCDIF, BMP, MG1, PHOS, PT ####[place] [phone] Sodium molar conc 143 mmol/L Normal 132-148 [facility] Comment on above: Performed By: #### C BCDIF, BMP, MG1, PHOS, PT ####[place] [phone] Urea nitrogen mass conc 6 mg/dL Low 8-25 [facility] Comment on above: Performed By: #### C BCDIF, BMP, MG1, PHOS, PT ####[place] [phone] CBC and Differentialon 02-17 Abs Baso <0.03 Normal <0.11 [facility] Comment on above: Performed By: #### C BCDIF, BMP, MG1, PHOS, PT ####[place] [address] Abs Summit 1.46 k/uL High <0.87 [facility] Comment on above: Performed By: #### C BCDIF, BMP, MG1, PHOS, PT ####[place] [phone] Abs Neut 7.50 k/uL Normal 1.45-7.50 [facility] Comment on above: Performed By: #### C BCDIF, BMP, MG1, PHOS, PT ####[place] [phone] Basophils/100 WBC Auto (Bld) 0.2 % Normal [facility] Comment on above: Performed By: #### C BCDIF, BMP, MG1, PHOS, PT ####[place] [address] DTYPE Auto Diff Normal [facility] Comment on above: Performed By: #### C BCDIF, BMP, MG1, PHOS, PT ####[place] [phone] Eosinophils Auto #/vol (Bld) 0.29 10*3/uL Normal <0.46 [facility] Comment on above: Performed By: #### C BCDIF, BMP, MG1, PHOS, PT ####[place] [id number] Eosinophils/100 WBC Auto (Bld) 2.8 % Normal [facility] Comment on above: Performed By: #### C BCDIF, BMP, MG1, PHOS, PT ####[place] [phone] Erythrocyte distribution width Auto Ratio (RBC) 16.5 % High 11.5-15.0 [facility] Comment on above: Performed By: #### C BCDIF, BMP, MG1, PHOS, PT ####[place] [phone] Hematocrit Auto Volume Fraction (Bld) 30.2 % Low 36.0-46.0 [facility] Comment on above: Performed By: #### C BCDIF, BMP, MG1, PHOS, PT ####[place] [id number] Hemoglobin mass conc (Bld) 9.5 g/dL Low 11.5-15.5 [facility] Comment on above: Performed By: #### C BCDIF, BMP, MG1, PHOS, PT ####[place] [phone] Lymphocytes Auto #/vol (Bld) 0.95 10*3/uL Low 1.00-4.00 [facility] Comment on above: Performed By: #### C BCDIF, BMP, MG1, PHOS, PT ####[address] Lymphocytes/100 WBC Auto (Bld) 9.3 % Normal [facility] Comment on above: Performed By: #### C BCDIF, BMP, MG1, PHOS, PT ####[place] [phone] MCH Auto Entitic mass (RBC) 28.7 pG Normal 26.0-34.0 [facility] Comment on above: Performed By: #### C BCDIF, BMP, MG1, PHOS, PT ####[place] [phone] MCHC Auto mass conc (RBC) 31.5 g/dL Normal 30.5-36.0 [facility] Comment on above: Performed By: #### C BCDIF, BMP, MG1, PHOS, PT ####[place] [phone] MCV Auto Entitic volume (RBC) 91.2 fL Normal 80.0-100.0 [facility] Comment on above: Performed By: #### C BCDIF, BMP, MG1, PHOS, PT ####[place] [phone] Monocytes/100 WBC Auto (Bld) 14.3 % Normal [facility] Comment on above: Performed By: #### C BCDIF, BMP, MG1, PHOS, PT ####[place] [phone] Neutrophils/100 WBC Auto (Bld) 73.4 % Normal [facility] Comment on above: Performed By: #### C BCDIF, BMP, MG1, PHOS, PT ####[place] [phone] Platelet mean volume Auto Entitic volume (Bld) 9.6 fL Normal 9.0-12.7 [facility] Comment on above: Performed By: #### C BCDIF, BMP, MG1, PHOS, PT ####[place] [phone] Platelets Auto #/vol (Bld) 248 10*3/uL Normal 150-400 [facility] Comment on above: Performed By: #### C BCDIF, BMP, MG1, PHOS, PT ####[place] [phone] RBC Auto #/vol (Bld) 3.31 10*6/uL Low 3.90-5.20 [facility] Comment on above: Performed By: #### C BCDIF, BMP, MG1, PHOS, PT ####[place] [phone] WBC Auto #/vol (Bld) 10.22 10*3/uL Normal 3.70-11.00 [facility] Comment on above: Performed By: #### C BCDIF, BMP, MG1, PHOS, PT ####[place] [id number] [place] [phone] Magnesiumon 02-17-2018 Magnesium mass conc 2.0 mg/dL Normal 1.7-2.6 [facility] Comment on above: Performed By: #### C BCDIF, BMP, MG1, PHOS, PT ####[place] [phone] NURSING PROGon 02-17-2018 Protein mass conc HNO ID: [id number] thor: Heidy (Rn) Favian Boyleice: (none)Author Type: Registered NurseType: Nursing Progress NoteFiled: 02/17/2018 1:46 PMNote Text: Nursing Progress NotePatient Name: Brenda McclainMRN: [id number] Location: [id number] walked with patient on RA satting 94%.0917 SR paged [id number] Brenda Mcclain: phos 1.4 this AM does she needanything? ThanksHeidy [id number] receivedAguilar Juarez CM [facility] is set up.This note was completed by: Heidy Boyle RN [facility] Protein mass conc HNO ID: [id number] thor: Franchesca (Rn) Favian Beebeice: NursingAuthor Type: Registered NurseType: Nursing Progress NoteFiled: 02/17/2018 12:33 AMNote Text: Nursing Progress NotePatient Name: Brenda McclainMRN: [id number] Location: [id number] Daily Note:AANDO times 3. Patient has pain [...] was completed by: Franchesca Beebe RN Normal [facility] Phosphoruson 02-17-2018 Phosphate mass conc 1.4 mg/dL Low 2.5-4.5 [facility] Comment on above: Performed By: #### C BCDIF, BMP, MG1, PHOS, PT ####[facility] [place], [place] [phone] Protimeon 02-17-2018 INR Coag RelTime (Bld) 1.0 {INR} Normal 0.9-1.3 [facility] Comment on above: Result Comment: Danni min K Antagonist (VKA) Therapeutic Range: INR 2 to 3 (Target INR of 2.5)Note: For patients treated with VKA drugs, such as warfarin, the [employer] 2012 Guideline recommends [...] al. Chest 2012, 141:7S-47SNishimura RA, et al. [facility] 2017, 70: 252-289 Performed By: #### C BCDIF, BMP, MG1, PHOS, PT ####[place] [facility] [place], [place] [phone] PT Sec 10.6 sec Normal 9.7-13.0 [facility] Comment on above: Performed By: #### C BCDIF, BMP, MG1, PHOS, PT ####[facility] [place], [place] [phone] Amylase,Body Fluidon 02-16-2 018 Amylase,Body Fluid 142 U/L Critically abnormal See Comment [facility] Comment on above: Result Comment: (NOT E)PLEURAL [...] CLSI document C49-A. JOSEFINA Giordano: Clinical LaboratoryStandards [place]; 2007.3. Donovan VIGILH, Neel MCLAUGHLIN, Renzo DJ. Use of cyst fluid CEA,CA19-9, and amylase for evaluation of pancreatic lesions. ClinicalBiochemistry. 2009;42:0620-2388.This test was developed and its performance characteristicsdetermined by [facility]It has not been cleared or approved by the FDA. -[facility] is regulatedunder CLIA as qualified to perform high-complexity testing.This test is used for clinical purposes. It should not be regarded asinvestigational or for research. Performed By: #### F AMYL ####[place] [id number] [place] [address] Fluid Type Other Normal [facility] Comment on above: Result Comment: ACE D RAIN ABDOMEN Performed By: #### F AMYL ####[place] [address] CASE MANAGEMon 02-16-2018 CASE MANAGEM HNO ID: [id number] thor: TRUDY Becerra Rnervice: Case ManagementAuthor Type: Registered NurseType: Care Mgt Progress NoteFiled: 02/16/2018 1:55 PMNote Text:CARE MANAGEMENT DISCHARGE NOTESERVICE DATE: 02/16/2018SERVICE TIME: 1:55 PM LOS: 2 daysIM letter given to patient on 02.16.2018.SIGNATURE: Luisito Bill RN PATIENT NAME: Brenda Cooper: February 16, 2018 : 1:55 PM PAGER/CONTACT #: [phone] [facility] CASE MANAGEM HNO ID: [id number] thor: TRUDY Becerra Rnervice: Case ManagementAuthor Type: Registered NurseType: Care Mgt Progress NoteFiled: 02/16/2018 1:44 PMNote Text:CARE MANAGEMENT DISCHARGE NOTESERVICE DATE: 02/16/2018SERVICE TIME:1:43 PM LOS: 2 days d/c plan is faye butler [facility] # [phone] set to see pt [id number] pending d/cSIGNATURE: Luisito Bill RN PATIENT NAME: Brenda Cooper: February 16, 2018 : 1:43 PM PAGER/CONTACT #: [phone] [facility] CASE MGT INIT Augustine 2017 CASE MGT INIT ERIC HNO ID: [id number]: Luisito Garnica (Rn) TRUDY Billervice: Case ManagementAuthor Type: Registered NurseType: Care Mgt Initial AssessmentFiled: 02/16/2018 9:01 AMNote Text:CARE MANAGEMENT: ASSESSMENT AND DISCHARGE PLANSERVICE DATE: 02/16/2018SERVICE TIME: 8:58 AMPRIMARY CARE PHYSICIAN:Pam Villalobos, MDPhone: [id number] STATUS: InpatientMEDICAL:Patient/Repres entative Stated Goals:To improve my functional statusHealth Insurance: MEDICARE A AND BMedicareHealth Issues Impacting Discharge Plan: IBSLast Admission Date: Previous admit date: 01/23/2008Is this Within the Past 30 days? NoAdvance Directive:Current Advance Directive: NoneIn Chart: [employer] Supervisor Attempted to Assist with AD Completion: YesAction: [...] Emergency Contact InformationPrimary Emergency Contact: Danilo McclainAddress: [address] [place] [address] [facility] Vqareh Rzmottkq: SpouseSecondary Emergency Contact: Lea Montalvo Eobaza Xhoiljmj: DaughterSupportive: YesOther Important Patient Contacts: spouse cell [phone] Assessment:Caregiver is ready, willing and able to meet the patient's needs asrecommended by the inter-professional team? YesPatient's transition needs and plan for meeting these needs: pt requiresassistance w adls, therapy recommending C and pt agreeable andrequesting [facility]- referral sent and working on socYudy the patient have an acute stroke diagnosis, or has the patient had astroke during this admission? NoMedication Adherence:I am convinced of the importance of my prescription medication: Agreecompletely - 0I worry that my prescription medication will do more harm than good to meDisagree completely - 0I feel financially burdened by my ofx-ms-oxgtse expenses for myprescription medication: Disagree mostly -0Patient [...] IPTA,lives w spouse plan dc over weekend [facility] referral started working on SOC Yolanda ROMO for [id number]: Luisito Bill RN PATIENT NAME: Brenda McclainDATE: February 16, 2018 : 8:58 AM PAGER/CONTACT #: [phone] [facility] NURSING PROGon 02-16-2018 Protein mass conc HNO ID: [id number] thor: Johanne (Rn) [place], RNService: NursingAuthor Type: Registered NurseType: Nursing Progress NoteFiled: 02/16/2018 5:53 PMNote Text: Nursing Progress NotePatient Name: Brenda McclainMRN: [id number] Location: [facility]3B13/FS-AL9A-39 Pt A+Ox3, pleasant. Abdomen soft AND tender, [...] note was completed by: Johanne Sarkar RN [facility] PROGRESSon 02-16-2018 Protein mass conc HNO ID: [id number] thor: Ant (Res)(Hist) SiderisService: General SurgeryAuthor Type: ResidentType: Progress NotesFiled: 02/17/2018 10:06 AMNote Text: Attestat ion signed by Alfie Martinez at 02/17/2018 11:22 AMPatient doing well. Progressing without any postop concerns. DC planning.Splenectomy vaccines to be given likely before DC home. General Surgery Progress NoteName: Brenda McclainN: [id number] update:Overall, patient is doing well. No significant [...] 02/16/18 0659 02/16/18 07 - 02/17/18 0659Shift [id number] 8629-3421 4665-4894 24 Hour Total 6334-8342 [phone] 24 Hour TotalINTAKE PO 0 650 650 [...] prior to DC if still here in 5-0rqvo-Yiatcgwtb incentive spirometry and ambulation, wean oxygen as tolerated-SCD's and SQH for DVT prophylaxis-will likely discharge today or tomorrowAntonios MD FreddyGeneselect medical [facility] Surgery, PGY-5Pager: [phone] Surgery Pager: [phone], weekdays 6A-6POn call pager: [phone], nights and weekends? Normal [facility] Phosphoruson 02-16-2018 Phosphate mass conc 1.7 mg/dL Low 2.5-4.5 [facility] Comment on above: Performed By: #### P HOS ####[facility] [place], [place] [phone] APTTon 02-15-2018 aPTT Coag time (Bld) 20.8 s Low 23.0-32.4 [facility] Comment on above: Result Comment: Unfr actionated [...] laboratory APTT reagent in use throughout the [facility]. Performed By: #### C BCDIF, PTT, PT, AMYL, BMP, MG1 ####[facility] [place], [place] [phone] Amylaseon 02-15-2018 Amylase enzyme act/vol 228 U/L High 0-137 [facility] Comment on above: Performed By: #### C BCDIF, PTT, PT, AMYL, BMP, MG1 ####[facility] [place], [place] [phone] Amylase,Body Fluidon 02-15-2 018 Amylase,Body Fluid 64 U/L Critically abnormal See Comment [facility] Comment on above: Result Comment: (NOT E)PLEURAL [...] CLSI document C49-A. JOSEFINA Giordano: Clinical LaboratoryStandards [place]; 2007.3. Donovan VIGIL, Neel MCLAUGHLIN, Renzo DJ. Use of cyst fluid CEA,CA19-9, and amylase for evaluation of pancreatic lesions. ClinicalBiochemistry. 2009;42:4131-4764.This test was developed and its performance characteristicsdetermined by [facility]'s [facility] ([facility]).It has not been cleared or approved by the FDA. -[facility] is regulatedunder CLIA as qualified to perform high-complexity testing.This test is used for clinical purposes. It should not be regarded asinvestigational or for research. Performed By: #### F AMYL ####[place] [phone] [address] [place] [phone] Fluid Type Gopi Pedro Drain Normal [facility] Comment on above: Performed By: #### F AMYL ####[place] [phone] [phone] Basic Metabolic Panlon 02-15 Anion gap 3 molar conc 11 mmol/L Normal 9-18 [facility] Comment on above: Performed By: #### C BCDIF, PTT, PT, AMYL, BMP, MG1 ####[place] [phone] Calcium mass conc 8.6 mg/dL Normal 8.5-10.5 [facility] Comment on above: Performed By: #### C BCDIF, PTT, PT, AMYL, BMP, MG1 ####[place] [phone] Chloride molar conc 105 mmol/L Normal 98-110 [facility] Comment on above: Performed By: #### C BCDIF, PTT, PT, AMYL, BMP, MG1 ####[place] [phone] CO2 molar conc 24 mmol/L Normal 23-32 [facility] Comment on above: Performed By: #### C BCDIF, PTT, PT, AMYL, BMP, MG1 ####[place] [phone] Creatinine mass conc 0.72 mg/dL Normal 0.70-1.40 [facility] Comment on above: Performed By: #### C BCDIF, PTT, PT, AMYL, BMP, MG1 ####[place] [phone] eGFR- Amer. >60 Normal >60 [facility] Comment on above: Performed By: #### C BCDIF, PTT, PT, AMYL, BMP, MG1 ####[place] [phone] GFR/1.73 sq M predicted among non-blacks MDRD vol rate/area (S/P/Bld) mL/min/{1.73_m2} Normal >60 [facility] Comment on above: Performed By: #### C BCDIF, PTT, PT, AMYL, BMP, MG1 ####[place] [phone] Glucose mass conc 195 mg/dL High 65-100 [facility] Comment on above: Performed By: #### C BCDIF, PTT, PT, AMYL, BMP, MG1 ####[place] [phone] Potassium molar conc 4.3 mmol/L Normal 3.5-5.0 [facility] Comment on above: Performed By: #### C BCDIF, PTT, PT, AMYL, BMP, MG1 ####[place] [phone] Sodium molar conc 140 mmol/L Normal 132-148 [facility] Comment on above: Performed By: #### C BCDIF, PTT, PT, AMYL, BMP, MG1 ####[place] [phone] Urea nitrogen mass conc 14 mg/dL Normal 8-25 [facility] Comment on above: Performed By: #### C BCDIF, PTT, PT, AMYL, BMP, MG1 ####[place] [phone] CBC and Differentialon 02-15 Abs Baso <0.03 Normal <0.11 [facility] Comment on above: Performed By: #### A BINTB ####[facility] [address] [place], [place] [phone] Abs Summit 0.74 k/uL Normal <0.87 [facility] Comment on above: Performed By: #### A BINTB ####[place] [phone] Abs Neut 11.13 k/uL High 1.45-7.50 [facility] Comment on above: Performed By: #### A BINTB ####[place] [phone] Basophils/100 WBC Auto (Bld) 0.1 % Normal [facility] Comment on above: Performed By: #### A BINTB ####[place] [phone] DTYPE Auto Diff Normal [facility] Comment on above: Performed By: #### A BINTB ####[place] [phone] Eosinophils Auto #/vol (Bld) 10*3/uL Normal <0.46 [facility] Comment on above: Performed By: #### A BINTB ####[place] [phone] Eosinophils/100 WBC Auto (Bld) 0.0 % Normal [facility] Comment on above: Performed By: #### A BINTB ####[place] [phone] Erythrocyte distribution width Auto Ratio (RBC) 16.6 % High 11.5-15.0 [facility] Comment on above: Performed By: #### A BINTB ####[place] [phone] Hematocrit Auto Volume Fraction (Bld) 35.4 % Low 36.0-46.0 [facility] Comment on above: Performed By: #### A BINTB ####[place] [phone] Hemoglobin mass conc (Bld) 11.6 g/dL Normal 11.5-15.5 [facility] Comment on above: Performed By: #### A BINTB ####[address] [phone] Lymphocytes Auto #/vol (Bld) 0.65 10*3/uL Low 1.00-4.00 [facility] Comment on above: Performed By: #### A BINTB ####[address] [phone] Lymphocytes/100 WBC Auto (Bld) 5.2 % Normal [facility] Comment on above: Performed By: #### A BINTB ####[place] [phone] MCH Auto Entitic mass (RBC) 28.9 pG Normal 26.0-34.0 [facility] Comment on above: Performed By: #### A BINTB ####[place] [phone] MCHC Auto mass conc (RBC) 32.8 g/dL Normal 30.5-36.0 [facility] Comment on above: Performed By: #### A BINTB ####[place] [phone] MCV Auto Entitic volume (RBC) 88.3 fL Normal 80.0-100.0 [facility] Comment on above: Performed By: #### A BINTB ####[place] [phone] Monocytes/100 WBC Auto (Bld) 5.9 % Normal [facility] Comment on above: Performed By: #### A BINTB ####[place] [phone] Neutrophils/100 WBC Auto (Bld) 88.8 % Normal [facility] Comment on above: Performed By: #### A BINTB ####[address] [phone] Platelet mean volume Auto Entitic volume (Bld) 9.3 fL Normal 9.0-12.7 [facility] Comment on above: Performed By: #### A BINTB ####[facility] [place], [place] [phone] Platelets Auto #/vol (Bld) 261 10*3/uL Normal 150-400 [facility] Comment on above: Performed By: #### A BINTB ####[address] [phone] RBC Auto #/vol (Bld) 4.01 10*6/uL Normal 3.90-5.20 [facility] Comment on above: Performed By: #### A BINTB ####[place] [phone] WBC Auto #/vol (Bld) 12.53 10*3/uL High 3.70-11.00 [facility] Comment on above: Performed By: #### A BINTB ####[place] [phone] Magnesiumon 02-15-2018 Magnesium mass conc 2.1 mg/dL Normal 1.7-2.6 [facility] Comment on above: Result Comment: Revi ewed Performed By: #### C BCDIF, PTT, PT, AMYL, BMP, MG1 ####[facility] [place], [place] [phone] NURSING PROGon 02-15-2018 Protein mass conc HNO ID: [id number] thor: Dionisio (Rn) TRUDY Leungervice: (none)Author Type: Registered NurseType: Nursing Progress NoteFiled: 02/15/2018 6:27 PMNote Text: Nursing Progress NotePatient Name: Brenda Miller CoryN: [id number] Location: [facility]3B13/UF-IJ8B-62 Daily Note:02/15/18 1030- Patient arrived to room [...] note was completed by: Dionisio Leung RN [facility] Protein mass conc HNO ID: [id number] thor: Amber Mann) Ari Martinez: (none)Author Type: Registered NurseType: Nursing Progress NoteFiled: 02/15/2018 10:31 AMNote Text: Nursing Progress NotePatient Name: Brenda McclainMRN: [id number] Location: [facility]/SX-LNP-09 Daily Note:0700. Report received from weight shifter RN. Patient resting comfortably inbed at this [...] note was completed by: Amber Martinez RN [facility] Protein mass conc HNO ID: [id number] thor: Negro AlmarazRn) Ari Beaulieu: (none)Author Type: Registered NurseType: Nursing Progress NoteFiled: 02/15/2018 8:02 AMNote Text: Nursing Progress NotePatient Name: Brenda McclainMRN: [id number] Location: [facility]/CI-UWH-77 Daily Note:2315: Received report from Aaron DIETZ.0000: Assessment complete, see flow sheet. VSS.0344: Reassessment complete, see flow sheet. PRN labetolol given per MARfor SBP . 160. All other VSS.0725: Report given to HERMINIO ClarkThis note was completed by: Negro Beaulieu RN [facility] Protein mass conc HNO ID: [id number] thor: Aaron (Herminio) TRUDY Mcdermottervice: (none)Author Type: Registered NurseType: Nursing Progress NoteFiled: 02/14/2018 11:21 PMNote Text: Nursing Progress NotePatient Name: Brenda McclainN: [id number] Location: [place] [address]/NP-HWY-88 Daily Note:2029: Patient arrived to SICU bed [...] note was completed by: Aaron Mcdermott RN [facility] PROGRESSon 02-15-2018 Protein mass conc HNO ID: [id number] thor: Surendra (Elva) Mooseervice: General SurgeryAuthor Type: ResidentType: Progress NotesFiled: 02/15/2018 8:42 AMNote Text:General Surgery Progress NoteName: Brenda McclainMRN: [id number] update:Overall, patient is doing well. No significant [...] 02/15/18 0659 02/15/18 0700 - 02/16/18 0659Shift [phone] 7288-5922 0849-0084 24 Hour Total [id number] 24 Hour TotalINTAKE IV 3500 927 4427 [...] pneumococcal,meningococcal, influenza)-Encourage incentive spirometry and ambulation-SCD's and [facility] for DVT prophylaxis-Dispo: [facility] todayDiscussed with Dr. Garsia?M REID Acosta-1 Resident, General SurgeryPager: [phone]; Dated: February 15, 2018, 8:38 AM? Normal [facility] Phosphoruson 02-15-2018 Phosphate mass conc 2.9 mg/dL Normal 2.5-4.5 [facility] Comment on above: Performed By: #### P HOS ####[place] [address] [place], [place] [phone] Protimeon 02-15-2018 INR Coag RelTime (Bld) 1.0 {INR} Normal 0.9-1.3 [facility] Comment on above: Result Comment: Danni min K Antagonist (VKA) Therapeutic Range: INR 2 to 3 (Target INR of 2.5)Note: For patients treated with VKA drugs, such as warfarin, the [employer] 2012 Guideline recommends [...] al. Chest 2012, 141:7S-47SNishtony RA, et al. [facility] 2017, 70: 252-289 Performed By: #### C BCDIF, PTT, PT, AMYL, BMP, MG1 ####[place] [address] [place], [place] [phone] PT Sec 10.5 sec Normal 9.7-13.0 [facility] Comment on above: Performed By: #### C BCDIF, PTT, PT, AMYL, BMP, MG1 ####[place] [address] [place], [place] [phone] THERAPY NTon 02-15-2018 THERAPY NT HNO ID: [id number] thor: Milagro (Ot) YocabetService: Occupational TherapyAuthor Type: Occupational TherapistType: Therapy (PT/OT/Speech/Resp)Filed: 02/15/2018 10:26 AMNote Text:Occupational Therapy EvaluationSERVICE DATE: 02/15/2018SERVICE TIME: 849 to 912ROOM: [id number] Discharge Disposition: Home OTAnticipated Discharge Needs: Physical [...] mobility-other;Decreased activities of dailyliving (ADL)Interventions Provided: Evaluation;Self Mcc Management (99639)$ Evaluation-Low (99297) Billed Units: 1 unitSelf Mcc Management (05401) Treatment Minutes: 81 unitSkilled Intervention(s): Provided cuing [...] February 15, 2018 : 10:23 AM Normal [facility] THERAPY NT HNO ID: [id number] thor: Shannon (Pt) ThoburnService: Physical TherapyAuthor Type: Physical TherapistType: Therapy (PT/OT/Speech/Resp)Filed: 02/15/2018 9:24 AMNote Text:Physical Therapy EvaluationSERVICE DATE: 02/15/2018SERVICE TIME: 0840 to 0903ROOM: [id number] Discharge Disposition: Home PTPT Recommendations to Nursing: [...] INTERVENTIONS:Therapy Diagnosis: Reduced mobility-otherInterventions Provided: Evaluation;Gait Training (00937)$ Evaluation-High (05865) Billed Units: 1 unitGait Training (96670) Treatment Minutes: 81 unitSkilled Intervention(s): Instruction in [...] McclainDATE: February 15, 2018 : 9:23 AM [facility] ALLIED HEALTHon 02-14-2018 ALLIED HEALTH HNO ID: [id number] thor: Mariel Ervin (Rt)vice: RadiologyAuthor Type: TechnicianType: Allied HealthFiled: 02/14/2018 7:12 PMNote Text: Radiology Service Progress NotePATIENT NAME: Brenda McclainMRN: [id number] OF SERVICE: February 14, 2018TIME: 7:11 PMPATIENT IDENTITY VERIFICATION COMPLETED USING TWO (2) METHODS: Patientconfirmed name verbally and ID band matches..PATIENT GENDER DATA: Female. status: : NoBreastfeeding status: NO.PATIENT RELEVANT IMPLANT DATA REVIEWED: Not ApplicableRADIOLOGY DEPARTMENT: General X-ray: Exam(s) Completed: Abdomen X-RayAbdomenPERIPHERAL IV DATA: Not applicableSIGNED BY: Mike Ervin 2017 7:11 PM [facility] ANES Christianne 02-14-2018 ANES POST HNO ID: [id number] thor: Ryan Cruzervice: AnesthesiologyAuthor Type: AnesthesiologistType: Anesthesia [...] 14, 2018 : 8:36 PM PAGER/CONTACT #: [phone] [facility] ANES PREOPon 02-14-2018 ANES PREOP HNO ID: [id number] thor: John TseeService: AnesthesiologyAuthor Type: AnesthesiologistType: Anesthesia PreOpFiled: 02/15/2018 7:09 AMNote Text:REGIONAL ANESTHESIOLOGY DAY OF SURGERY NOTEPATIENT NAME: Brenda McclainMRN: [id number]: 1948Procedure(s) (LRB):LAPAROSCOPIC RPR PARAESOHAGEAL HERNIA W/ FUNDOPLASTY [...] and screen. Discussed with surgeon.SIGNATURE: Monica Cummings APRN.TITLE ONE READING TEACHER PATIENT NAME: Brenda McclainDATE: February 14, 2018 : 3:19 PM PAGER/CONTACT #: Normal [facility] APTTon 02-14-2018 aPTT Coag time (Bld) 21.8 s Low 23.0-32.4 [facility] Comment on above: Result Comment: Unfr actionated [...] laboratory APTT reagent in use throughout the [facility]. Performed By: #### A BINTB ####[facility] [place], [place] [phone] BRIEF OP NOTon 02-14-2018 BRIEF OP NOT HNO ID: [id number] thor: Nataly Leeervice: General SurgeryAuthor Type: ResidentType: Brief Op NoteFiled: 02/14/2018 8:48 PMNote Text:BRIEF OP NOTELOG ID: [id number]/Procedure Date: 02/14/2018Incision/Procedure Start Time: 3:11 PMIncision Close/Procedure End Time: 7:58 PMSurgeon(s)/Proceduralist(s) and Tip Puncher(s):Surgeon(s) and Role: * Monica Rodriguez) Garsia - [...] 2018 : 8:26 PM PAGER/CONTACT #: Normal [facility] Basic Metabolic Panlon 02-14 Anion gap 3 molar conc 12 mmol/L Normal 11-07 [facility] Comment on above: Performed By: #### A BINTB ####[facility] [address] [place], [place] [phone] Calcium mass conc 8.3 mg/dL Low 8.5-10.5 [facility] Comment on above: Performed By: #### A BINTB ####[place] [address] [address] [place] [phone] Chloride molar conc 105 mmol/L Normal 98-110 [facility] Comment on above: Performed By: #### A BINTB ####[address] [phone] CO2 molar conc 24 mmol/L Normal 23-32 [facility] Comment on above: Performed By: #### A BINTB ####[place] [phone] Creatinine mass conc 0.73 mg/dL Normal 0.70-1.40 [facility] Comment on above: Performed By: #### A BINTB ####[place] [phone] eGFR- Amer. >60 Normal >60 [facility] Comment on above: Performed By: #### A BINTB ####[place] [phone] GFR/1.73 sq M predicted among non-blacks MDRD vol rate/area (S/P/Bld) mL/min/{1.73_m2} Normal >60 [facility] Comment on above: Performed By: #### A BINTB ####[place] [phone] Glucose mass conc 176 mg/dL High 65-100 [facility] Comment on above: Performed By: #### A BINTB ####[place] [phone] Potassium molar conc 4.0 mmol/L Normal 3.5-5.0 [facility] Comment on above: Performed By: #### A BINTB ####[place] [phone] Sodium molar conc 141 mmol/L Normal 132-148 [facility] Comment on above: Performed By: #### A BINTB ####[place] [phone] Urea nitrogen mass conc 12 mg/dL Normal 8-25 [facility] Comment on above: Performed By: #### A BINTB ####[place] [phone] CBC and Differentialon 02-14 Abs Baso <0.03 Normal <0.11 [facility] Comment on above: Performed By: #### A BINTB ####[place] [phone] Abs Summit 0.58 k/uL Normal <0.87 [facility] Comment on above: Performed By: #### A BINTB ####[place] [phone] Abs Neut 9.32 k/uL High 1.45-7.50 [facility] Comment on above: Performed By: #### A BINTB ####[place] [phone] Basophils/100 WBC Auto (Bld) 0.0 % Normal [facility] Comment on above: Performed By: #### A BINTB ####[place] [phone] DTYPE Auto Diff Normal [facility] Comment on above: Performed By: #### A BINTB ####[place] [phone] Eosinophils Auto #/vol (Bld) 10*3/uL Normal <0.46 [facility] Comment on above: Performed By: #### A BINTB ####[place] [phone] Eosinophils/100 WBC Auto (Bld) 0.0 % Normal [facility] Comment on above: Performed By: #### A BINTB ####[place] [phone] Erythrocyte distribution width Auto Ratio (RBC) 16.8 % High 11.5-15.0 [facility] Comment on above: Performed By: #### A BINTB ####[place] [phone] Hematocrit Auto Volume Fraction (Bld) 34.4 % Low 36.0-46.0 [facility] Comment on above: Performed By: #### A BINTB ####[place] [phone] Hemoglobin mass conc (Bld) 11.2 g/dL Low 11.5-15.5 [facility] Comment on above: Performed By: #### A BINTB ####[place] [phone] Lymphocytes Auto #/vol (Bld) 0.79 10*3/uL Low 1.00-4.00 [facility] Comment on above: Performed By: #### A BINTB ####[place] [phone] Lymphocytes/100 WBC Auto (Bld) 7.4 % Normal [facility] Comment on above: Performed By: #### A BINTB ####[place] [phone] MCH Auto Entitic mass (RBC) 29.0 pG Normal 26.0-34.0 [facility] Comment on above: Performed By: #### A BINTB ####[place] [phone] MCHC Auto mass conc (RBC) 32.6 g/dL Normal 30.5-36.0 [facility] Comment on above: Performed By: #### A BINTB ####[place] [phone] MCV Auto Entitic volume (RBC) 89.1 fL Normal 80.0-100.0 [facility] Comment on above: Performed By: #### A BINTB ####[place] [address] [address] [place], [place] [phone] Monocytes/100 WBC Auto (Bld) 5.4 % Normal [facility] Comment on above: Performed By: #### A BINTB ####[address] [place], [place] [phone] Neutrophils/100 WBC Auto (Bld) 87.2 % Normal [facility] Comment on above: Performed By: #### A BINTB ####[address] [phone] Platelet mean volume Auto Entitic volume (Bld) 9.3 fL Normal 9.0-12.7 [facility] Comment on above: Performed By: #### A BINTB ####[address] [phone] Platelets Auto #/vol (Bld) 263 10*3/uL Normal 150-400 [facility] Comment on above: Performed By: #### A BINTB ####[address] [phone] RBC Auto #/vol (Bld) 3.86 10*6/uL Low 3.90-5.20 [facility] Comment on above: Performed By: #### A BINTB ####[address] [phone] WBC Auto #/vol (Bld) 10.69 10*3/uL Normal 3.70-11.00 [facility] Comment on above: Performed By: #### A BINTB ####[address] [phone] Confirm Blood Typeon 018 ABO/RH(D) Positive Normal [facility] Comment on above: Performed By: #### C ONABO ####[facility] [place], [place] [phone] HISTORY PHYSICALon 12-26-201 8 HISTORY PHYSICAL HNO ID: [id number] thor: Arsenio (Res) HaddadService: General SurgeryAuthor Type: [...] 77 BP: 125/80 Resp: 18 SpO2: 96 %[place]iam Readings: Not applicableRESPIRATORYMechanical Ventilation: No. Supplemental [...] 14, 2018 : 8:52 PM PAGER/CONTACT #: [phone] Normal [facility] Magnesiumon 02-14-2018 Magnesium mass conc 1.4 mg/dL Low 1.7-2.6 [facility] Comment on above: Performed By: #### A BINTB ####[facility] [place], [place] [phone] NURSING PROGon 02-14-2018 Protein mass conc HNO ID: [id number] Author: Juanita (Rn) HERMINIO Broussard Service: Nursing Author Type: Registered Nurse Type: Nursing Progress Note Filed: 02/14/2018 6:12 PM Note Text: converted to open procedure at 1720 Normal [facility] OPERATIVE NOon 02-14-2018 OPERATIVE NO HNO ID: [id number] thor: Monica Rodriguez) ChrisinService: General SurgeryAuthor Type: PhysicianType: Operative ReportFiled: 02/19/2018 3:10 PMNote Text:[facility] - Operative ReportBRENDA MCCLAIN LDOB: 8AGE: 68.SEX: FMRN: [id number] TYPE: IHOSP SVC: GENSLOCATION: [id number] PHYSICIAN: MADI Gamez NUMBER: [id number] OF SURGERY/PROCEDURE: 02/14/2018INCISION/PROCEDURE START TIME: 1511 hours.INCISION [...] entire sac was dissected out from themediastinum.A Buchanan drain was passed around the esophagus. Further dissection wascontinued using the Harmonic scalpel. All the adhesions of the sac tothe mediastinum were completely lysed. 2 cm to 3 cm length ofesophagus was noted to be easily inside the abdomen. Next, weproceeded with laparoscopic closure of the posterior ellen. Multipleinterrupted ehhbzy-ho-wviwm stitches using silk was used to close [...] artery. Thesplenic hilum was clamped using an Endo-HORTNECIA alfaro load and transected.The spleen was removed from the body. No evidence of any furtherbleeding was noted. The abdomen was irrigated. No evidence of anycomplications was noted. Next, we passed the 58-Khmer bougie intothe stomach. A 360 degree wrap [...] without any evidence of any burning.Monica Garsia MDTA:[id number] #: [id number]: 02/14/2018 20:43:04 [facility] PT EDon 02-14-2018 PT ED HNO ID: [id number] thor: Haven (Rn) TRUDY Famervice: (none)Author Type: Registered NurseType: Patient EducationFiled: 02/14/2018 12:36 PMNote Text:PATIENT EDUCATION TOPIC: PROCEDURE / SURGERY: Pre-op Teaching:ProtocolsPATIENT NAME: Brenda Miller SarahiN: [id number] LOCATION: [facility] OR POOL/FV OR POOLREADINESS TO LEARNCOGNITIVE ABILITY: Alert and orientedMOTIVATION TO LEARN: EagerFAMILY SUPPORT: None - Unavailable/disinterestedINSTRU CTION PROVIDED TO: PatientPATIENT LEARNS BEST BY: Individual InstructionFACTORS AFFECTING LEARNING: NonePHYSICAL LIMITATIONS AFFECTING LEARNING: NoneLEARNING RESPONSEDIAGNOSIS: ADULT: Well AdultPATIENT/FAMILY RESPONSE: Verbalizes understanding of: GVE-DJGUDZRTYJBJRUYJXTEAM-Iddas ct action to take to follow pre-operative instructionsMETHOD OF INSTRUCTION: Individual instructionFOLLOW-UP PLAN: Complete - No need for follow-upPatient instructed to call with any further issuesINSTRUCTIONAL AIDS USED: NASUPPLEMENTAL MATERIAL PROVIDED TO PATIENT: NoneREFERRAL (RECOMMENDATION): NoneElectronically Signed By: Haven Fam RN Normal [facility] Phosphoruson 02-14-2018 Phosphate mass conc 3.2 mg/dL Normal 2.5-4.5 [facility] Comment on above: Performed By: #### A BINTB ####[facility] [place], [place] [phone] Protimeon 02-14-2018 INR Coag RelTime (Bld) 1.1 {INR} Normal 0.9-1.3 [facility] Comment on above: Result Comment: Danni min K Antagonist (VKA) Therapeutic Range: INR 2 to 3 (Target INR of 2.5)Note: For patients treated with VKA drugs, such as warfarin, the [place] [employer] 2012 Guideline recommends [...] al. Chest 2012, 141:7S-47SNishtony RA, et al. [facility] 2017, 70: 252-289 Performed By: #### A BINTB ####[place] [id number] [place], [place] [phone] PT Sec 11.3 sec Normal 9.7-13.0 [facility] Comment on above: Performed By: #### A BINTB ####[facility] [address] [place], [place] [phone] SURGICAL PATHOLOGYon 018 SURGICAL PATHOLOGY [facility]: [id number] Physician: MONICA GARSIA MD FINAL DIAGNOSISSpleen, resection:- [...] chromogenicin-situ hybridization tests have been determined by [facility] Medicine [place] ([facility]) patti manner consistent with CLIA requirements. One or more of these tests havenot been cleared or approved by the FDA. [facility] is regulated under CLIA asqualified to [...] the spleen is dark red andslightly granular. Bass Fisher sections are submitted in two cassettes. WE/dcr 02/15/2018 Gross examination performed at [facility], [address] [place] [address]Patient ID #: [id number] [id number] Report: 02/19/2018Date of Procedure: 02/14/2018Date of Receipt: 02/15/2018Submitted by: MONICA GARSIA MDLocation: [id number] interpretation performed at [facility], [address] [facility] [address]. Normal [facility] Comment on above: Performed By: #### C ONABO ####[facility] [place] [address] [phone] XR ABDOMEN 1V SUPINEon 02-14 XR ABDOMEN [...] HERNANDEZ MD on Feb 14 2018 7:16PM [id number] AL!! Invalid Interpretation Code [facility] NURSING PROGon 02-08-2018 Protein mass conc HNO ID: [id number] thor: Chichi (Rn) Erwin, TRUDYervice: General SurgeryAuthor Type: Registered NurseType: Nursing Progress NoteFiled: 02/08/2018 11:06 AMNote Text:PACC Nurse Progress NoteHistory AND Physical:PACC Visit Date: [birth year]Mzgyoboj HANDP Date: N/AED visit Date: N/AOutside HANDP Scanned Date: N/ALabs Within Last 6 Months:CBC: Date 01-25-18BMP/CMP: Date 01-25-18TYPE AND SCREEN: Date 64-1-63Eqspjm acceptable limits, results in EPICImaging Within Last 12 Months:Chest X-ray 2-66-80Tnhbuir scanned in EPIC 13-07-05Nlntish Testing:EKG in last 12 Months: Yes: Date: [...] after childbirthChart Check:Beulah Crowe 2017 11:04 AM [facility] RBC Antibody Interp (Lab Ord ered)on 01-25-2018 Antibody Interp (NOTE) [facility] Comment on above: Result Comment: Anti -E and anti-K, clinically significant alloantibodies againstcorresponding Rh and Marielle blood group system antigens, respectivelyare identified.Approximately 63% of donor units will be negative for the E and Kantigens. When possible please allow a minimum of 4 hours forpretransfusion and compatibility testing. Performed By: #### A BINTB ####[facility] [address] [place], [place] [phone] Physician Review Signed by Cynthia og MD ([id number]) [facility] Comment on above: Performed By: #### A BINTB ####[facility] [address] [place], [place] [phone] Type and SCR (30D)on 018 ABO/RH(D) Positive Normal [facility] Comment on above: Performed By: #### T SCR30 ####[place] [id number] [place], [place] [phone] Antibody Identified Normal [facility] Comment on above: Result Comment: ANTI -K PRESENT.ANTI-E PRESENT. Performed By: #### T SCR30 ####[facility] [place], [place] [phone] HOSPon 01-18-2018 HOSP Patient:Brenda Mcclain LMRN: Height:5' [...] 12:25 PM SignedCall to patient to at [phone] to reschedule surgery date.Received VM. Contact number provided for return call.New date of surgery 02/14/2018Procedure: Laparoscopic PEH repairAndra Mckeon RN 02/02/2018 2:05 PM SignedReceived return call from patient.Accepted new date of surgery.Will edit [facility] paperwork to reflect new date of surgery.Progress Notes ([place] [address]):Monica Garsia MD 01/21/2018 4:17 PM SignedAssessmentNEW FOREGUT PATIENTPATIENT NAME: Brenda McclainMRN: [id number] FOR CONSULT: Paraesophageal herniaREQUESTING PHYSICIAN: NAZIA TesfayeATE of SERVICE: 01/16/2018TIME of SERVICE: 6:08 PMPCP: Pam Villalobos [facility] Complaint: Abdominal pain, refluxHistory of present [...] record and USmail.Monica Garsia, MDPrevious Version Normal [facility] Vital Signs Date Time Vital Sign Value Performing Clinician Facility 08-18-2022 14:26-0400 Body height 161.3 cm Sanjay Adkins MD Work Phone: [facility] 08-18-2022 14:26-0400 Body temperature 97.11 [degF] Sanjay Adkins MD Work Phone: [facility] 08-18-2022 14:26-0400 Body weight 82.46 kg Sanjay Adkins MD Work Phone: [facility] 08-18-2022 14:26-0400 Diastolic blood pressure 77 mm[Hg] Sanjay Adkins MD Work Phone: [facility] 08-18-2022 14:26-0400 Heart rate 78 /min Sanjay Adkins MD Work Phone: [facility] 08-18-2022 14:26-0400 Respiratory rate 16 /min Sanjay Adkins MD Work Phone: [facility] 08-18-2022 14:26-0400 SaO2% (BldA) [Mass fraction] 100 % Sanjay Adkins MD Work Phone: [facility] 08-18-2022 14:26-0400 Systolic blood pressure 117 mm[Hg] Sanjay Adkins MD Work Phone: [facility] 08-19-2021 14:12-0400 Body height 161.3 cm Sanjay Adkins MD Work Phone: [facility] 08-19-2021 14:12-0400 Body temperature 98.6 [degF] Sanjay Adkins MD Work Phone: [facility] 08-19-2021 14:12-0400 Body weight 79.83 kg Sanjay Adkins MD Work Phone: [facility] 08-19-2021 14:12-0400 Diastolic blood pressure 83 mm[Hg] Sanjay Adkins MD Work Phone: [facility] 08-19-2021 14:12-0400 Heart rate 91 /min Sanjay Adkins MD Work Phone: [facility] 08-19-2021 14:12-0400 Respiratory rate 16 /min Sanjay Adkins MD Work Phone: [facility] 08-19-2021 14:12-0400 SaO2% (BldA) [Mass fraction] 96 % Sanjay Adkins MD Work Phone: [facility] 08-19-2021 14:12-0400 Systolic blood pressure 133 mm[Hg] Sanjay Adkins MD Work Phone: [facility] 07-29-2021 08:45-0400 Blood Pressure Location Guan SALAM [facility] 07-29-2021 08:45-0400 Diastolic blood pressure 98 mm[Hg] Guan SALAM [facility] 07-29-2021 08:45-0400 Heart rate 66 /min Guan SALAM [facility] 07-29-2021 08:45-0400 Respiratory rate 23 /min Guan SALAM [facility] 07-29-2021 08:45-0400 SaO2% (BldA) [Mass fraction] 96 % Guan SALAM [facility] 07-29-2021 08:45-0400 Systolic blood pressure 146 mm[Hg] Guan SALAM [facility] 07-29-2021 08:35-0400 Blood Pressure Location Guan SALAM [facility] 07-29-2021 08:35-0400 Diastolic blood pressure 97 mm[Hg] Guan SALAM [facility] 07-29-2021 08:35-0400 Heart rate 71 /min Guan SALAM [facility] 07-29-2021 08:35-0400 Respiratory rate 14 /min Guan SALAM [facility] 07-29-2021 08:35-0400 SaO2% (BldA) [Mass fraction] 97 % Guan SALAM [facility] 07-29-2021 08:35-0400 Systolic blood pressure 147 mm[Hg] Guan SALAM [facility] 07-29-2021 08:30-0400 Blood Pressure Location Guan SALAM [facility] 07-29-2021 08:30-0400 Diastolic blood pressure 105 mm[Hg] Guan SALAM [facility] 07-29-2021 08:30-0400 Heart rate 67 /min Guan SALAM [facility] 07-29-2021 08:30-0400 Respiratory rate 14 /min Guan SALAM [facility] 07-29-2021 08:30-0400 SaO2% (BldA) [Mass fraction] 96 % Guan SALAM [facility] 07-29-2021 08:30-0400 Systolic blood pressure 140 mm[Hg] Guan SALAM [facility] 07-29-2021 08:20-0400 Body temperature 98.06 [degF] Guan SALAM [facility] 07-29-2021 08:14-0400 Respiratory rate 18 /min Guan SALAM [facility] 07-29-2021 08:00-0400 Respiratory rate 1 /min Guan SALAM [facility] 07-29-2021 07:50-0400 Respiratory rate 6 /min Guan SALAM [facility] 07-29-2021 07:12-0400 Body temperature 97.7 [degF] Guan SALAM [facility] 06-09-2021 10:29-0400 Diastolic blood pressure 91 mm[Hg] Guan [employer] 06-09-2021 10:29-0400 Heart rate 76 /min Guan SALAM [facility] 06-09-2021 10:29-0400 Systolic blood pressure 148 mm[Hg] Guan SALAM [facility] Encounters Encounter Date Encounter Type Care Provider Facility Start: 01-16-2023 End: 01-16-2023 ambulatory PAM VILLALOBOS Not Available Start: 2023 End: 2023 Emergency department patient visit [place] Facility:[facility] Start: 08-24-2022 End: 08-25-2022 ambulatory Kamron Villalobos Facility:[facility] Start: 08-24-2022 End: 08-24-2022 Patient encounter procedure Kamron Villalobos [facility] Start: 08-18-2022 End: 08-18-2022 ambulatory PAM VILLALOBOS Facility:[facility] Start: 08-18-2022 End: 08-18-2022 ambulatory Sanjay Adkins MD Work Phone: Hematology/Oncology Comment on above: 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); History of iron deficiency Start: 08-18-2022 End: 08-18-2022 Patient encounter procedure Sanjay Adkins MD Work Phone: [place] Start: 05-18-2022 End: 05-19-2022 ambulatory SELF REFERRAL Facility:[facility] Start: 05-18-2022 End: 05-18-2022 Patient encounter procedure SELF REFERRAL [facility] Start: 12-17-2021 End: 12-17-2021 Patient encounter procedure Pam Villalobos [facility] Start: 08-26-2021 Telephone encounter Andra Anders [...] encounter procedure Sanjay Adkins MD Work Phone: [place] Start: 08-18-2021 End: 08-18-2021 Patient encounter procedure JOHANNE LINDSAY [facility] Start: 07-29-2021 End: 07-29-2021 Patient encounter procedure Guan SALAM [facility] Start: 06-09-2021 End: 06-09-2021 Patient encounter procedure Guan SALAM [facility] Start: 02-15-2021 End: 05-18-2021 Patient encounter procedure Pam Villalobos [facility] Start: 02-14-2018 End: 02-17-2018 Evaluation and management of inpatient MONICA RODRIGUEZ) [facility] Procedures Date Procedure Procedure Detail [...] Comment on above: Performed By: #### [id number] ####[place] [id number] [place], [place] [phone] Colonoscopy Pam Villalobos Elbow region structu re (body structure) Pam Villalobos Esophageal hiatus hernia repair Pam Villalobos Esophagogastroduodenoscopy P eter Wilfredo Hemorrhoids (disorder) Pam Villalobos Hysterectomy Pam Villalobos knee scope Pam Villalobos Operation on spleen Pam [email or web address] a Plan of Treatment Date Care Activity Detail Author Start: 08-18-2025 DIABETES SCREEN DIABETES SCREEN [facility] Start: 08-19-2024 DIABETES SCREEN DIABETES SCREEN [facility] Start: 08-19-2023 BP CONTROLLED (<130/80) BP CONTROLLE D (<130/80) [facility] Start: 04-16-2023 MENINGOCOCCAL CONJUG ATE (3 - Risk 2-dose series) MENINGOCOCCAL CONJUGATE (3 - Risk 2-dose series) [facility] Start: 08-18-2022 End: 10-18-2022 MONOCLONAL PROTEIN, SERUM (BLOOD) [facility] Work Phone: Comment on above: Expected: 08/18/2022 , Expires: 10/18/2022 Start: 08-18-2022 End: 10-18-2022 PROT ELECT SERUM WITH DARÍO AND INTERP [facility] Work Phone: Comment on above: Expected: 08/18/2022 , Expires: 10/18/2022 Start: 02-20-2022 ADVANCE DIRECTIVE DISCUSSION ADVANCE DIRECTIVE DISCUSSION [facility] Start: 02-20-2022 DEPRESSION ASSESSMENT DEPRESSION ASS ESSMENT [facility] Start: 10-21-2021 Influenza vaccination INFLUENZA (#1) [facility] Start: 08-19-2021 End: 10-19-2021 Ferritin [Mass/volume] in Serum or Plasma [facility] Work Phone: Comment on above: Expected: 08/19/2021 , Expires: 10/19/2021 Start: 08-19-2021 End: 10-19-2021 Iron and Iron binding capacity panel - Serum or Plasma [facility] Work Phone: Comment on above: Expected: 08/19/2021 , Expires: 10/19/2021 Start: 03-30-2021 COVID-19 VACCINE (4 - Booster for Pfizer series) COVID-19 VACCINE (4 - Booster for Pfizer series) [facility] Start: 02-20-2021 ADVANCE DIRECTIVE DISCUSSION ADVANCE DIRECTIVE DISCUSSION [facility] Start: 08-15-2020 Adult depression screening assessment DEPRESSION SCREENING [facility] Start: 04-16-2019 PNEUMOCOCCAL: 65+ (3 - PCV) PNEUMOCOCCAL: 65+ (3 - PCV) [facility] Start: 07-31-2013 SHINGRIX VACCINE (1 of 2) SHINGRIX VACCINE (1 of 2) [facility] Start: 01-07-2013 BONE DENSITY BONE DENSITY [facility] Start: 01-07-1993 COLOGUARD (FIT-DNA) COLOGUARD (FIT-D NA) [facility] Start: 01-07-1993 Colonoscopy COLONOSCOPY [facility] Start: 01-07-1993 COLORECTAL CANCER SCREENING COLORECTAL CANCER SCREENING [facility] Start: 01-07-[address] COLONOGRAPHY [facility] Start: 01-07-1993 FECAL OCCULT BLOOD FECAL OCCULT BLOO D [facility] Start: 01-07-1993 LIPID SCREEN LIPID SCREEN [facility] Start: 01-07-1993 SIGMOIDOSCOPY SIGMOIDOSCOPY 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 Immunizations Immunization Date Immunization Notes Care Provider Fa cility 04-16-2020 COVID-19 vaccine, ag e 12+ yr (PFIZER-BIONTECH - PURPLE TOP) Sanjay Adkins MD Work Phone: [facility] 03-27-2020 COVID-19 vaccine, ag e 12+ yr (PFIZER-BIONTECH - PURPLE TOP) Sanjay Adkins MD Work Phone: [facility] 04-16-2018 meningococcal polysaccharide (groups A, C, Y and W-135) diphtheria toxoid conjugate vaccine (MCV4P) Sanjay Adkins MD Work Phone: [facility] 04-16-2018 pneumococcal polysaccharide vaccine, 23 valent Sanjay Adkins MD Work Phone: [facility] 02-17-2018 haemophilus influenz ae type b vaccine, PRP-T conjugate Sanjay Adkins MD Work Phone: [facility] 02-17-2018 influenza, high dose seasonal, preservative-free Sanjay Adkins MD Work Phone: [facility] 02-17-2018 meningococcal polysaccharide (groups A, C, Y and W-135) diphtheria toxoid conjugate vaccine (MCV4P) Sanjay Adkins MD Work Phone: [facility] 02-17-2018 pneumococcal polysaccharide vaccine, 23 valent Sanjay Adikns MD Work Phone: [facility] 06-05-2013 zoster vaccine, live Sanjay gibson MD Work Phone: [facility] 02-18-2009 novel influenza-H1N1 -09, preservative-free, injectable Sanjay Adkins MD Work Phone: [facility] Payers Date Payer Category Payer Unknown VANDANA ROSS [employer] DICARE SUPPLEMENT [id number] 2018-Present [phone] [address] [place] [address] Indemnity [id number] 2018 Unknown VANDANA ROSS [employer] DICARE SUPPLEMENT [id number] 2018-Present [phone] [address] [place] [id number] Indemnity [id number] 2018 Unknown [id number] 2012 Medicare MEDICARE MEDICAR E A AND B [id number] 2012-Present [phone] [place] [address] Medicare [id number] 2012 Medicare MEDICARE MEDICAR E A AND B [id number] 2012-Present [phone] [place] [address] Medicare [id number] 2012 Medicare [id number] 1948 Unknown [id number] 1948 Unknown [id number] 1948 Unknown [id number] 1948 Unknown [id number] Social History Date Type Detail Facility Start: 01-07-2020 End: 06-09-2021 Tobacco smoking status Never smoked tobacco (finding) [facility] Sex Assigned At Female [facility] Start: 08-19-2021 End: 08-18-2022 Alcohol intake Current drinker of alcohol (finding) [facility] Start: 01-25-2018 History SDOH Alcohol Comment one drink at the holidays at times [facility] Start: 1950 Sex Assigned At Female [facility] Start: 08-09-2021 End: 08-19-2021 Exposure to SARS-CoV-2 (event) Not sure [facility] Start: 08-18-2022 Tobacco use and exposure Smokeless tobacco non-user [facility] NEGATED: Highlighted rowStart: NINF History of tobacco use Passive smoker [facility] Medical Equipment Procedure Code Equipment Code Equipment Origin al Text Equipment Identifier Dates [id number] FDA Start: 09-02-2019 {[id number] FDA Start: 09-30-2019 {[id number]{ [id number] FDA Start: 10-29-2019 [employer] Synth etic 10x7cm Surgical Reinforcement Hernia Repair - [id number] Start: 02-14-2018 Clinical Notes 07-29-2021 to 08-18-2022 Sanjay Adkins MD - 08/18/2022 7:57 AM EDTTelephone Encounter - Andra Anders RN - 08/26/2021 3:32 PM EDTTelephone Encounter - Andra Anders RN - 08/26/2021 3:30 PM EDT Note Date & Type Note Facility 08-18-2022 Note HNO ID: [id number] Author: Sanjay Adkins MD Service: ? Author [...] 1. Iron def (more content not included)... [facility] 08-18-2022 History of Presen t illness [...] ulcers. The patient subsequently underwent surgery at [facility] (Dr. Garsia) on 02/14/2018. Her [...] Sanjay Adkins MD documented in this encounter [facility] 08-26-2021 Miscellaneous Notes Call placed [...] scheduled. ALFONSO Hutton documented in this encounter [facility] 08-20-2021 Miscellaneous Notes Informed pt [...] scheduled. ALFONSO Hutton documented in this encounter [facility] 08-19-2021 Nurse Note Patient states that she is very tired. Deisy Andujar MA documented in this encounter [facility] 08-19-2021 History of Presen t [...] ulcers. The patient subsequently underwent surgery at [facility] (Dr. Garsia) on 02/14/2018. Her [...] CC: Dr. Giordano documented in this encounter [facility] 07-29-2021 Evaluation + Plan note Extrac rashawn from: Title:ANES POSTOP MAC/GEN NOTE Author:Fernando Chaparro JR Date:07/29/21 Plan Transfer/ Discharge: Patient can be discharged from PACU when criteria met. Condition good. Extracted from: Title:ANES PREOP ENDO NOTE Author:Miladys Huizar JR, DO Date:07/29/21 Plan [place] [employer]esthesi[employer] (ASA) physical status classification: Class II. Anesthetic Preoperative Plan Anesthesia: Monitored anesthesia care and general anesthesia if required.. Anesthetic plan, risks, benefits, and alternatives discussed with the patient and/or family. Pt. and/or family present and agree to proceed as planned.. Discussed the importance of abstaining from tobacco products, and offered counseling if desired.. [facility]06-09-2022 Hospital Discharge instructions Patient Education 07/29/2021 [...] including vitamins, herbs, eye drops, creams, and ufbk-ztn-ogefoaj medicines. Any problems you or family members [...] home. Follow these instructions at home: Take ivcn-nfb-cfpemjk and prescription medicines only as told by [...] 03/30/2006 Document Revised: 01/19/2018 Document Reviewed: 12/12/2017 [employer] Patient Education 2020 [employer] 07/29/2021 08:24:23 Endoscopy, Care After Procedure [facility] ([facility]) Endoscopy Care After Procedure Please read the instructions outlined below and refer to this sheet in the next few weeks. These discharge instructions provide you with general information on [facility] Your doctor may also give you [...] blood. Document Released: 09/20/2004 Document Re-Released: 07/31/2006 [facility] [employer]. Follow Up Care 06/09/2021 11:21:23 With:Roge OWEN Address: [address] [place] [address] [place] [phone] Business (1) When:1 to 2 weeks Comments:Call for any problems. 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 Iron deficiency anemia secondary to blood loss (chronic) Paraesophageal hernia Diaphragmatic hernia without mention of obstruction or gangrene Monoclonal gammopathy of undetermined significance Monoclonal paraproteinemia [facility] Diagnosis Monoclonal gammopathy of undetermined significance- Primary Monoclonal paraproteinemia History of iron deficiency Personal history of diseases of blood and blood-forming organs documented in this encounter [facility] course Narrative No data available for this section [facility] No data available for this section [facility] No data available for this section [facility] Summary Purpose Family History No Family History Records FoundNo Family History Records FoundNo Family History Records FoundNo Family History Records FoundNo Family History Records Found Advance Directives No Advanced Directives Records FoundDocuments on File Type Date Recorded Patient Bass Fisher Expl anation Advance Directive(s) Advance Directive(s) 02/14/2018 11:56 AM Hospital Course Note HNO ID: [id number]: Leif anders (Res) MontelioneService: General SurgeryAuthor Type: ResidentType: Discharge SummariesFiled: 02/18/2018 8:30 AMNote Text:DISCHARGE SUMMARYPATIENT NAME: Brenda Mcclain ADMISSION DATE: 02/14/2018MRN: [id number] DISCHARGE DATE: 02/17/2018Attending: Monica Rodriguez) AdyReason for [...] hiatal hernia 10cm and Schatzki ringesophogram 11/20/2017 ([facility])Hospital Course:The patient was admitted to the hospital with the above history. T (more content not included)... Additional Source Comments INFORMATION SOURCE (unrecogn ized section and content) DATE CREATED AUTHOR 02/19/2018 [facility] DATE CREATED AUTHOR AUTHOR'S ORGANIZ ATION 04/14/2021 [facility] Specialist DATE CREATED AUTHOR AUTHOR'S ORGANIZ ATION 01/09/2023 [facility] DATE CREATED AUTHOR AUTHOR'S ORGANIZ ATION 01/17/2023 [facility] Specialists EPIC DATE CREATED AUTHOR AUTHOR'S ORGANIZ ATION 03/07/2023 [facility] Care Team (unrecognized sect ion and content) Line Fisher Relationship Specialty Start Date End Date Pam Villalobos PCP - General 12/07/07 Andra Mckeon (Rn), RN [id number] [place] [address] Specialty Private Eye General Surgery 01/24/18 Line Fisher Relationship Specialty Start Date End Date Pam Villalobos PCP - General 12/07/07 Andra Mckeon (Rn), RN [id number] [place] [address] Specialty Private Eye General Surgery 01/24/18 Line Fisher Relationship Specialty Start Date End Date Pam Villalobos PCP - General 12/07/07 Andra Mckeon (Rn), RN [id number] [place] [address] Specialty Private Eye General Surgery 01/24/18 Source Comments (unrecognize d section and content) In the event this informatio n is protected by the Federal Confidentiality of Alcohol and Drug Abuse Patient Records regulations: The Federal rules restrict any use of the information to criminally investigate or prosecute any alcohol or drug abuse patient.[facility] Hospital[facility] the event this information is [...] or prosecute any alcohol or drug abuse patient.[facility] Hospital[facility] the event this information is protected by the Federal Confidentiality of Alcohol and Drug Abuse Patient Records regulations: The Federal rules restrict any use of the information to criminally investigate or prosecute any alcohol or drug abuse patient.[facility] Reason for Visit (unrecogniz ed [...] BE BASED ON THE PRIMARY CLINICAL RECORDS. [facility]. provides no warranty or guarantee of the accuracy or completeness of information in this document.
== END 2023-04-06 09:49 | disposition home or self-care (01) ==
LOC: VC 09:48
PROVIDERS: PCP Radiology Diagnostic Radiology; Visit Provider Radiology Diagnostic Radiology
DX: I83.813 Varicose veins of bilateral lower extremities with pain (principal)
CPT/HCPCS: 36471